=== PATIENT | female | born 1940 | race Caucasian/White ===

== ENCOUNTER → 2016-09-08 | Outpatient (CLI) | payer MEDICARE, BC ==
[~2016-09-08] MED LIST: Iopamidol 755 MG/ML 50 ML Bottle IV ONE
[2016-09-08 16:41] LABS: CHLORIDE,CL 106 mmol/L (98-110); SODIUM,NA 142 mmol/L (136-146)
--- NOTE | 2016-09-08 18:15 | CT ---
EXAM DATE: 09/08/16 PATIENT'S AGE: 75 Patient: TOÑA TOLEDO Facility: [place], [place] Site . Site : 1940 Study: CT Chest Angio [id number]/27/2017 5:27:31 PM Ordering Physician: Radha Goodrich Final Report: INDICATION: Chest pain and shortness of breath. Heart failure. TECHNIQUE: CT chest pulmonary PE protocol acquired with IV contrast. 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 No acute appearing pulmonary embolus seen. Upper limits of normal cardiac size. Ectasia of the ascending aorta measuring 3.7 centimeters. Mediastinum and paula: No mass or adenopathy. Fluid in the mid to distal esophagus. Apparent mild prominence of the distal esophageal wall. Lungs: Minor subsegmental atelectasis. Mild mosaic attenuation could represents compressive changes with foci of air trapping. A 2- 3 millimeter left lower lobe nodule on image 383, possibly calcified. Pleura and pericardium: No effusions. Chest wall and axilla: No mass or adenopathy. Heterogeneous hypodense thyroid containing ill-defined low-attenuation foci. Upper abdomen: A superior right hepatic calcification, probably a granuloma. A small splenic capsular calcification. A 7 millimeter soft tissue density lateral to the spleen on image 512 could represent a splenule. A thickened, nodular left adrenal. Postsurgical changes in the proximal stomach. Bones: Degenerative changes in both shoulders with loose intra-articular bodies. IMPRESSION: 1. No CT evidence of an acute pulmonary embolus. A small intraluminal band in the left lower lobe segmental pulmonary artery is suggestive of sequela of a small chronic PE. 2. A small left lower lobe pulmonary nodule may be calcified. If there are risk factors, a 12 month followup examination could be obtained. 3. Inhomogeneous thyroid containing ill-defined low-density foci. Correlate with nonemergent sonography. 4. Other findings as above. Dictated by Tom Ramos MD @ 09/08/2016 6:06:17 PM Dictated by: Tom Ramos MD @ 09/08/2016 18:06:23 (Electronic Signature) Report Signed by Proxy and Original Signed Document filed in the Medical Record. MTDD
--- NOTE | 2016-09-08 18:16 | CR ---
EXAM DATE: 09/08/16 PATIENT'S AGE: 75 Patient: TOÑA TOLEDO Facility: [place], [place] Site . Site : 1940 Study: XRay Chest [id number]/27/2017 5:33:59 PM Ordering Physician: Radha Goodrich Final Report: INDICATION: Chest pain TECHNIQUE: Chest 2 views. COMPARISON: 01/30/2016 FINDINGS: Cardiovascular and mediastinum: Normal cardiac size. An ectatic, tortuous and calcified aorta again seen. Lungs and pleural spaces: No consolidation or pleural effusions. Bones and soft tissues: No significant change. IMPRESSION: No sign of acute disease. Dictated by Tom Ramos MD @ 09/08/2016 5:37:43 PM Dictated by: Tom Ramos MD @ 09/08/2016 17:37:50 (Electronic Signature) Report Signed by Proxy and Original Signed Document filed in the Medical Record. MTDD
== END ==
LOC: MW.CHIM 15:45
PROVIDERS: ATTEND Internal Medicine
DX: R07.9 Chest pain, unspecified (principal); I50.9 Heart failure, unspecified; R53.1 Weakness
CPT/HCPCS: 36415; 71020; 71275; 80053; 81001; 83880; 84484; 85025; Q9967; G0463

== ENCOUNTER → 2016-09-09 | Outpatient (CLI) | payer MEDICARE, BC | LOC: MW.CHIM 08:00 | CPT/HCPCS: G0463 ==

== ENCOUNTER 2016-09-21 06:58 | Emergency (ER) | payer MEDICARE, BC ==
[2016-09-21 07:07] VITALS: BP 135/65
--- NOTE | 2016-09-21 07:09 | EDM.PDOC ---
ED HPI LOWER BACK PAIN/INJURY - General Chief Complaint: Back Pain or Injury Stated Complaint: BACK PAIN Time Seen by Provider: 09/21/16 07:03 Source of Information: Reports: Patient History Limitations: Reports: No limitations - History of Present Illness INITIAL COMMENTS - FREE TEXT/NARRATIVE: History of present illness: [] Review of systems: As per history of present illness and below otherwise all systems reviewed and negative. Past medical history: As per history of present illness and as reviewed below otherwise noncontributory. Surgical history: As per history of present illness and as reviewed below otherwise noncontributory. Social history: No reported history of drug or alcohol abuse. Family history: As per history of present illness and as reviewed below otherwise noncontributory. Physical exam: General: Well developed, well nourished in NAD HEENT: Atraumatic, normocephalic, pupils reactive, negative for conjunctival pallor or scleral icterus, mucous membranes moist, throat clear, neck supple, nontender, trachea midline. Lungs: Clear to auscultation, breath sounds equal bilaterally, chest nontender. Heart: S1S2, regular, negative for clicks, rubs, or JVD. Abdomen: Soft, nondistended, nontender. Negative for masses or hepatosplenomegaly. Negative for costovertebral tenderness. Pelvis: Stable nontender. Genitourinary: Deferred. Rectal: Deferred. Back: Tenderness over the right hip and lower spine to palpation Extremities: Atraumatic, negative for cords or calf pain. Neurovascular unremarkable. Neuro: Awake, alert, oriented. Cranial nerves II through XII unremarkable. Cerebellum unremarkable. Motor and sensory unremarkable throughout. Exam nonfocal. Diagnostics: [] UA and lumbar spine films are negative Therapeutics: [] Tramadol Flexeril Motrin given in ED. Impression: [] Low back pain with spasm Plan: [] Tramadol Flexeril for pain followup PMD return if symptoms worsen Definitive disposition and diagnosis as appropriate pending reevaluation and review of above. - Related Data Allergies/ADRs: Allergies Allergy/AdvReac Type Severity Reaction Status Date / Time No Known Allergies Allergy Verified 09/21/16 06:59 Home Meds: Home Meds Aspirin 1 tab PO ASDIRECTED 09/21/16 [History] Calcium Carbonate [Calcium] 1 tab PO BID 09/21/16 [History] Carvedilol 1 tab PO BID 09/21/16 [History] Cyanocobalamin (Vitamin B-12) [Cyanocobalamin] 09/21/16 [History] Cyclobenzaprine [Flexeril] 10 mg PO BID PRN #16 tablet 09/21/16 [Rx] Enalapril [Vasotec] 1 tab PO BID 09/21/16 [History] Furosemide 1 tab PO BID 09/21/16 [History] Potassium Chloride 1 tab PO BID 09/21/16 [History] traMADol [Ultram] 50 mg PO Q8H PRN #16 tablet 09/21/16 [Rx] Past Medical History HEENT History: Reports: Cataract Cardiovascular History: Reports: Blood clots/VTE/DVT, Heart Failure Respiratory History: Reports: PE Genitourinary History: Reports: 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 Psychiatric History: Reports: None Endocrine/Metabolic History: Reports: Hypothyroidism - Past Surgical History HEENT Surgical History: Reports: Cataract surgery GI Surgical History: Reports: Appendectomy, Cholecystectomy Musculoskeletal Surgical History: Reports: Hip replacement, Knee replacement Social & Family History - Tobacco Use Smoking Status *Q: Never Smoker Second Hand Smoke Exposure: No ED ROS GENERAL - Review of Systems Review Of Systems: See Below (See history of present illness) ED EXAM,LOWER BACK PAIN/INJURY - Physical Exam Exam: See Below (See history of present illness) Course - Vital Signs Last Recorded V/S: Last Vital Signs Temp 36.6 C 09/21/16 07:00 Pulse 71 09/21/16 07:00 Resp 16 09/21/16 07:00 BP 135/65 09/21/16 07:00 Pulse Ox 99 09/21/16 07:00 - Orders/Labs/Meds Orders: Active Orders 24 hr Category Date Time Status Lumbar Spine 2 or 3V [CR] Stat Exams 09/21/16 07:08 Ordered Labs: Laboratory Tests 09/21/16 Range/Units 07:20 Urine Color YELLOW Urine Appearance CLEAR Urine pH 6.0 (5.0-8.0) Ur Specific [place] 1.015 (1.001-1.035) Urine Protein NEGATIVE (NEGATIVE) mg/dL Urine Glucose (UA) NEGATIVE (NEGATIVE) mg/dL Urine Ketones NEGATIVE (NEGATIVE) mg/dL Urine Occult Blood NEGATIVE (NEGATIVE) Urine Nitrite NEGATIVE (NEGATIVE) Urine Bilirubin NEGATIVE (NEGATIVE) Urine Urobilinogen 0.2 (<2.0) EU/dL Ur Leukocyte Esterase NEGATIVE (NEGATIVE) Urine RBC 0-1 (0-2/HPF) Urine WBC 0-1 (0-5/HPF) Ur Epithelial Cells FEW (NONE-FEW) Urine Bacteria RARE (NEGATIVE) Meds: Medications Discontinued Medications Generic Name Dose Route Start Last Admin Trade Name Freq PRN Reason Stop Dose Admin Cyclobenzaprine HCl 10 mg 09/21/16 07:27 09/21/16 07:32 Flexeril PO 09/21/16 07:28 10 mg ONETIME ONE Administration Ibuprofen 600 mg 09/21/16 07:26 09/21/16 07:32 Motrin PO 09/21/16 07:27 600 mg ONETIME ONE Administration Tramadol HCl 50 mg 09/21/16 08:03 Ultram PO 09/21/16 08:04 ONETIME ONE Departure - Departure Time of Disposition: 08:04 Disposition: Home, Self-Care 01 Condition: good Clinical Impression: Low back pain Qualifiers: Chronicity: acute Back pain laterality: right Sciatica presence: without sciatica Qualified Code(s): M54.5 - Low back pain Prescriptions: traMADol [Ultram] 50 mg PO Q8H PRN #16 tablet PRN Reason: Pain Forms: ED Department Discharge Additional Instructions: The following information is given to patients seen in the emergency department who are being discharged to home. This information is to outline your options for follow-up care. We provide all patients seen in our emergency department with a follow-up referral. The need for follow-up, as well as the timing and circumstances, are variable depending upon the specifics of your emergency department visit. If you don't have a primary care physician on staff, we will provide you with a referral. We always advise you to contact your personal physician following an emergency department visit to inform them of the circumstance of the visit and for follow-up with them and/or the need for any referrals to a consulting specialist. The emergency department will also refer you to a specialist when appropriate. This referral assures that you have the opportunity for follow-up care with a specialist. All of these measure are taken in an effort to provide you with optimal care, which includes your follow-up. Under all circumstances we always encourage you to contact your private physician who remains a resource for coordinating your care. When calling for follow-up care, please make the office aware that this follow-up from your recent emergency room visit. If for any reason you are refused follow -up, please contact the [facility] Emergency Department at and asked to speak to the emergency department charge nurse. Tramadol for pain Flexiril for spasm - My Orders Last 24 Hours: My Active Orders 09/21/16 07:08 Lumbar Spine 2 or 3V [CR] Stat - Assessment/Plan Last 24 Hours: My Active Orders 09/21/16 07:08 Lumbar Spine 2 or 3V [CR] Stat
[2016-09-21] MEDS ORDERED: Ibuprofen 600 MG Tab PO ONE (07:26)
[2016-09-21] MEDS ORDERED: Cyclobenzaprine 10 MG Tab PO ONE (07:27)
[2016-09-21] MEDS ORDERED: traMADol 50 MG Tab PO ONE (08:03)
--- NOTE | 2016-09-22 21:16 | CR ---
EXAM DATE: 09/21/16 PATIENT'S AGE: 75 Patient: TOÑA TOLEDO Facility: [place], [place] Site . Site : 1940 Study: XRay Spine Lumbar [id number]/12/2017 7:42:43 AM Ordering Physician: Murphy Garrett Final Report: Indication: Low back pain. Technique: Three upright views of the lumbar spine. Comparison: None. Findings: No fracture or bone destruction. Advanced L5-S1 degenerative changes and degenerative grade 2 L5 anterolisthesis. Moderate L1-2 and L2-3 degenerative changes and 3 mm L1 and L2 retrolistheses. Mild L3-4 disc degeneration. At least moderate facet degenerative changes generally. Mild levoscoliosis. Sacroiliac joints grossly negative. Impression: 1. No acute abnormality. 2. Degenerative changes, as above, including a degenerative grade 2 L5 anterolisthesis and 3 mm L1 and L2 retrolistheses. 3. Mild scoliosis. Dictated by Delroy Gomez MD @ Sep 21 2016 7:55AM (Electronic Signature) Report Signed by Proxy and Original Signed Document filed in the Medical Record. [facility] INSANEShobha
== END 2016-09-21 08:44 | disposition home or self-care (01) ==
LOC: MW.ED 06:58
DX: M62.830 Muscle spasm of back (principal); M54.5 Low back pain; E03.9 Hypothyroidism, unspecified; Z79.82 Long term (current) use of aspirin; Z79.899 Other long term (current) drug therapy; Z98.49 Cataract extraction status, unspecified eye; Z90.49 Acquired absence of other specified parts of digestive tract
CPT/HCPCS: 72100; 81001; 99283; A9270

== ENCOUNTER 2016-09-24 10:04 | Emergency (ER) | payer MEDICARE, BC ==
[2016-09-24] MEDS ORDERED: Ketorolac 60 MG/2 ML SDV IM ONE (10:27)
--- NOTE | 2016-09-24 10:32 | EDM.PDOC ---
ED HPI LOWER BACK PAIN/INJURY - General Chief Complaint: Back Pain or Injury Stated Complaint: RT HIP HURTS Time Seen by Provider: 09/24/16 10:27 Source of Information: Reports: Patient History Limitations: Reports: No limitations - History of Present Illness INITIAL COMMENTS - FREE TEXT/NARRATIVE: HISTORY AND PHYSICAL: [75-year-old female presenting with back pain that has increased in intensity also extending to her right hip] History of Present Illness: [Patient was seen on 06/28 and treated for muscle] Review of Systems: As per history of present illness and below otherwise all systems reviewed and negative. Past medical history: As per history of present illness and as reviewed below otherwise noncontributory. Surgical history: As per history of present illness and as reviewed below otherwise noncontributory. Social history: No reported history of drug or alcohol abuse. Family history: As per history of present illness and as reviewed below otherwise noncontributory. Physical exam: Alert oriented female complaining that the pills make her "pass out" then she wakes up 2 hours later with the same pain HEENT: Atraumatic, normocehpalic, pupils reactive, negative for conjunctival pallor or scleral icterus, mucous membranes moist, throat clear, neck supple, nontender, trachea midline. Lungs: Clear to auscultation, breath sounds equal bilaterally, chest non tender. Heart: S1S2, regular, negative for clicks, rubs, or JVD. Abdomen: Soft, nondistended, nontender. Negative for masses or hepatossplenmegaly. Negative for costovertebral tenderness. Pelvis: Stable mildly tender to rt posterior hip. Passive ROM has tenderness with external rotation and internal rotation. Pain is noted with extreme flexion but not extension. Genitourinary: Deferred. Rectal: Deferred Extremities: Atraumatic, negative for cords or calf pain. Neurovascular unremarkable. Neuro: Awake, alert, oriented. Cranial nerves II through XII unremarkable. Cerebellum unremarkable. Motor and sensory unremarkable throughout. Exam nonfocal. Review the previous films that were taken there is no data of osteoporosis degeneration at the L5-S1. This is consistent with the pain that she has been having also some scoliosis present. 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 Timing/Duration: Reports: Day(s): Location: Reports: lower, generalized Quality: Reports: Ache, Same as previous episode Severity: moderate Place of Occurrence: home Improves with: Reports: None Worsens with: Reports: Movement Context: Reports: chronic pain/injury - Related Data Allergies/ADRs: Allergies Allergy/AdvReac Type Severity Reaction Status Date / Time No Known Allergies Allergy Verified 09/24/16 10:13 Home Meds: Home Meds Aspirin 1 tab PO ASDIRECTED 09/21/16 [History] Calcium Carbonate [Calcium] 1 tab PO BID 09/21/16 [History] Carvedilol 1 tab PO BID 09/21/16 [History] Cyanocobalamin (Vitamin B-12) [Cyanocobalamin] 1 mcg IM ASDIRECTED 09/21/16 [ History] Cyclobenzaprine [Flexeril] 10 mg PO BID PRN #16 tablet 09/21/16 [Rx] Enalapril [Vasotec] 1 tab PO BID 09/21/16 [History] Furosemide 2 tab PO BID 09/21/16 [History] Potassium Chloride 1 tab PO BID 09/21/16 [History] Calcitonin ([place]) [Miacalcin Nasal [place]] 1 ml FERNANDO DAILY #1 bottle 09/24/16 [ Rx] Diclofenac Sodium [IJD: Diclofenac Sodium] 75 mg PO .TWICE DAILY W MEALS #20 tab.ec 09/24/16 [Rx] Prednisone [IJD: predniSONE] 20 mg PO WITHBREAKFAST #5 tab 09/24/16 [Rx] Past Medical History HEENT History: Reports: Cataract Cardiovascular History: Reports: Blood clots/VTE/DVT, Heart Failure Respiratory History: Reports: PE Genitourinary History: Reports: 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 ED EXAM,LOWER BACK PAIN/INJURY - Physical Exam Exam: See Below (see dictation) Course - Vital Signs Last Recorded V/S: Last Vital Signs Temp 36.1 C 09/24/16 10:19 Pulse 112 H 09/24/16 10:19 Resp 20 09/24/16 10:19 BP 99/55 L 09/24/16 10:19 Pulse Ox 98 09/24/16 10:19 Departure - Departure Time of Disposition: 11:00 Disposition: Home, Self-Care 01 Condition: good Clinical Impression: Low back pain Qualifiers: Chronicity: acute Back pain laterality: right Sciatica presence: without sciatica Qualified Code(s): M54.5 - Low back pain Prescriptions: Calcitonin ([place]) [Miacalcin Nasal [place]] 1 ml FERNANDO DAILY #1 bottle Diclofenac Sodium [IJD: Diclofenac Sodium] 75 mg PO .TWICE DAILY W MEALS #20 tab.ec Prednisone [IJD: predniSONE] 20 mg PO WITHBREAKFAST #5 tab Instructions: Back Pain, Adult, [id number] Forms: ED Department Discharge
[2016-09-24 11:28] VITALS: BP 100/58
== END 2016-09-24 11:22 | disposition home or self-care (01) ==
LOC: MW.ED 10:04
DX: M54.5 Low back pain (principal); M25.551 Pain in right hip; E03.9 Hypothyroidism, unspecified; Z79.899 Other long term (current) drug therapy; Z98.49 Cataract extraction status, unspecified eye; Z86.718 Personal history of other venous thrombosis and embolism; Z90.49 Acquired absence of other specified parts of digestive tract; Z98.890 Other specified postprocedural states; Z90.89 Acquired absence of other organs
CPT/HCPCS: 96372; 99283; J1885

== ENCOUNTER 2016-09-26 10:49 | Inpatient (IN) | payer MEDICARE, BC ==
[2016-09-26] MEDS ORDERED: Sodium Chloride 0.9% 1,000 ML IV ONE (10:59)
[2016-09-26] MEDS ORDERED: Ketorolac 30 MG/ML SDV IVPUSH ONE (10:59)
--- NOTE | 2016-09-26 11:04 | EDM.PDOC ---
[id number] Time Seen by Provider: 09/26/16 11:01 Source: Reports: Patient History Limitations: Reports: No limitations - History of Present Illness INITIAL COMMENTS - FREE TEXT/NARRATIVE: HISTORY AND PHYSICAL: [75-year-old female presenting by EMS to 2 hypotension and back pain] History of Present Illness: [Recipient was seen in the emergency room 2 days ago with back and hip pain no fractures have been noted at that time Patient states her right leg was swelling after OT had gotten her up to walk] Review of Systems: As per history of present illness and below otherwise all systems reviewed and negative. Past medical history: As per history of present illness and as reviewed below otherwise noncontributory. Surgical history: As per history of present illness and as reviewed below otherwise noncontributory. Social history: No reported history of drug or alcohol abuse. Family history: As per history of present illness and as reviewed below otherwise noncontributory. Physical exam: Alert white female who is "very tired of being in pain" apologizes for not wanting to misuse the ER. HEENT: Atraumatic, normocehpalic, pupils reactive, negative for conjunctival pallor or scleral icterus, mucous membranes are slightly dry, throat clear, neck supple, nontender, trachea midline. Significant circles under her eyes. Lungs: Clear to auscultation, breath sounds equal bilaterally, chest non tender. Heart: S1S2, regular, negative for clicks, rubs, or JVD. Abdomen: Soft, nondistended, nontender. Negative for masses or hepatossplenmegaly. Negative for costovertebral tenderness. Pelvis: Stable nontender. Tenderness is noted over the right sciatic causing some slight radiation to thebuttocks Genitourinary: Deferred. Rectal: Deferred Extremities: Atraumatic, negative for cords or calf pain. Neurovascular unremarkable. Neuro: Awake, alert, oriented. Cranial nerves II through XII unremarkable. Cerebellum unremarkable. Motor and sensory unremarkable throughout. Exam nonfocal. Patient has reported that she has not eaten this morning before she took her diclofenac. Diagnostics: [CBC CMP EKG chest x-ray] Therapeutics: [IV fluid, toradal] Impression: [#1 sciatica #2 mild dehydration #3] chronic back pain Plan: [25 mg fentanyl patch every 72 hours for your chronic pain] Definitive disposition and diagnosis as appropriate pending reevaluation and review of above. Occurred When: last week Occurred Where: home Severity: moderate Pain/Injury Location: Reports: lower extremity, right, other (generalized) Consciousness: Reports: no loss of consciousness Associated Symptoms: Reports: no other symptoms Allergies/ADRs: Allergies No Known Allergies Allergy (Verified 09/26/16 11:01) Home Medications: Ambulatory Orders Aspirin 1 tab PO ASDIRECTED 09/21/16 [Confirmed 09/24/16] Calcium Carbonate [Calcium] 1 tab PO BID 09/21/16 [Confirmed 09/24/16] Potassium Chloride 20 meq PO BID 09/21/16 [Confirmed 09/29/16] Calcitonin ([place]) [Miacalcin Nasal [place]] 1 spray FERNANDO Q2D 09/26/16 [Confirmed 09/29/16] Cyanocobalamin (Vitamin B-12) [Cyanocobalamin Injection] 1,000 mcg IM ASDIRECTED 09/26/16 [Confirmed 09/26/16] Enalapril [Vasotec] 2.5 mg PO BID 09/26/16 [Confirmed 09/26/16] Levothyroxine [Synthroid] 100 mcg PO DAILY 09/26/16 [Confirmed 09/26/16] Primidone 75 mg PO BEDTIME 09/26/16 [Confirmed 09/26/16] Furosemide 40 mg PO BID 09/29/16 [Confirmed 09/29/16] Carvedilol [Coreg] 3.125 mg PO BID #28 tablet 10/01/16 Rivaroxaban [Xarelto] 15 mg PO BID #32 tablet 10/01/16 Past Medical History HEENT History: Reports: Cataract Cardiovascular History: Reports: Blood clots/VTE/DVT, Heart Failure Respiratory History: Reports: PE Genitourinary History: Reports: None [employer] History: Reports: None Psychiatric History: Reports: None Endocrine/Metabolic History: Reports: Hypothyroidism - Past Surgical History HEENT Surgical History: Reports: Cataract surgery GI Surgical History: Reports: Appendectomy, Cholecystectomy Musculoskeletal Surgical History: Reports: Hip replacement, Knee replacement Social & Family History - Family History Family Medical History: Noncontributory - Tobacco Use Smoking Status *Q: Never Smoker Second Hand Smoke Exposure: No - Recreational Drug Use Recreational Drug Use: No Review of Systems - Review of Systems Review Of Systems: ROS reveals no pertinent complaints other than HPI. Trauma Exam - Physical Exam Exam: See Below (see dictation) EKG INTERPRETATION EKG Date: 09/26/16 Time: 11:10 Rhythm: NSR [place]: normal P-wave: present QRS: normal ST-T: normal QT: normal Course - Vital Signs Last Recorded V/S: Last Vital Signs Temp 36.2 C 10/01/16 08:00 Pulse 100 10/01/16 08:55 Resp 16 10/01/16 08:00 BP 131/68 10/01/16 08:55 Pulse Ox 95 10/01/16 08:00 - Orders/Labs/Meds Labs: Laboratory Tests 09/26/16 09/26/16 09/26/16 Range/Units 13:49 13:49 13:49 WBC 13.05 H (4.0-11.0) K/uL RBC 3.66 L (4.30-5.90) M/uL Hgb 11.0 L (12.0-16.0) g/dL Hct 35.2 L (36.0-46.0) % MCV 96.2 (80.0-98.0) fL MCH 30.1 (27.0-32.0) pg MCHC 31.3 (31.0-37.0) g/dL RDW Std Deviation 55.7 (28.0-62.0) fl RDW Coeff of Sebastien 16 H (11.0-15.0) % Plt Count 165 (150-400) K/uL MPV 10.10 (7.40-12.00) fL Neut % (Auto) 88.8 H (48.0-80.0) % Lymph % (Auto) 6.2 L (16.0-40.0) % [place] % (Auto) 4.6 (0.0-15.0) % Eos % (Auto) 0.2 (0.0-7.0) % Baso % (Auto) 0.2 (0.0-1.5) % Neut # 11.6 H (1.4-5.7) K/uL Lymph # 0.8 (0.6-2.4) K/uL [place] # 0.6 (0.0-0.8) K/uL Eos # 0.0 (0.0-0.7) K/uL Baso # 0.0 (0.0-0.1) K/uL Nucleated RBC % 0.0 /100WBC Nucleated RBCs # 0 K/uL INR 1.00 (0.86-1.11) Lactate 1.2 (0.20-2.00) mmol/L Troponin I (0.0-0.29) NG/ML 09/26/16 Range/Units 13:49 WBC (4.0-11.0) K/uL RBC (4.30-5.90) M/uL Hgb (12.0-16.0) g/dL Hct (36.0-46.0) % MCV (80.0-98.0) fL MCH (27.0-32.0) pg MCHC (31.0-37.0) g/dL RDW Std Deviation (28.0-62.0) fl RDW Coeff of Sebastien (11.0-15.0) % Plt Count (150-400) K/uL MPV (7.40-12.00) fL Neut % (Auto) (48.0-80.0) % Lymph % (Auto) (16.0-40.0) % [place] % (Auto) (0.0-15.0) % Eos % (Auto) (0.0-7.0) % Baso % (Auto) (0.0-1.5) % Neut # (1.4-5.7) K/uL Lymph # (0.6-2.4) K/uL [place] # (0.0-0.8) K/uL Eos # (0.0-0.7) K/uL Baso # (0.0-0.1) K/uL Nucleated RBC % /100WBC Nucleated RBCs # K/uL INR (0.86-1.11) Lactate (0.20-2.00) mmol/L Troponin I < 0.10 (0.0-0.29) NG/ML Meds: Medications Discontinued Medications Generic Name Dose Route Start Last Admin Trade Name Freq PRN Reason Stop Dose Admin Acetaminophen 650 mg 09/26/16 14:50 10/01/16 01:11 Tylenol PO 650 mg Q4H PRN Administration Pain (Mild 1-3)/fever Albuterol 2.5 mg 09/26/16 17:35 09/26/16 17:50 Proventil Neb Soln NEB 09/26/16 17:36 2.5 mg ONETIME ONE Administration Aspirin 81 mg 09/30/16 07:30 09/30/16 07:53 Aspirin PO 81 mg TuThSa JAZMIN Administration Calcium Carbonate/Glycine 1,000 mg 09/29/16 07:21 09/29/16 07:43 Tums PO 09/29/16 07:22 1,000 mg DAILY ONE Administration Calcium Carbonate/Glycine 1,000 mg 09/30/16 07:22 09/30/16 07:49 Tums PO 09/30/16 07:23 1,000 mg ONETIME ONE Administration Calcium Carbonate/Glycine 500 - 1,000 mg 09/30/16 20:45 09/30/16 20:53 Tums PO 1,000 mg Q8H PRN Administration Indigestion Calcium Carbonate/Glycine 1,000 mg 10/01/16 11:06 10/01/16 12:19 Tums PO 10/01/16 11:07 1,000 mg ONETIME ONE Administration Calcium Gluconate 1 gm 09/26/16 18:19 09/26/16 18:35 Calcium Gluconate IVPUSH 09/26/16 18:20 1 gm ONETIME ONE Administration Calcium Gluconate 1 gm 09/26/16 20:23 09/26/16 20:47 Calcium Gluconate IVPUSH 09/26/16 20:24 1 gm ONETIME ONE Administration Calcium Gluconate Confirm 09/26/16 20:40 09/26/16 20:51 Calcium Gluconate Administered 09/26/16 20:41 1 gm Dose Administration 1 gm .ROUTE .STK-MED ONE Calcium Gluconate 1 gm 09/26/16 23:28 09/27/16 00:01 Calcium Gluconate IVPUSH 09/26/16 23:29 1 gm ONETIME ONE Administration Carvedilol 6.25 mg 09/28/16 11:00 09/28/16 20:40 Coreg PO 6.25 mg BID JAZMIN Administration Carvedilol 3.125 mg 09/29/16 09:00 10/01/16 08:55 Coreg PO 3.125 mg BID JAZMIN Administration Dextrose/Water 50 ml 09/26/16 18:26 09/26/16 18:49 Dextrose 50% In Water IVPUSH 09/26/16 18:27 50 ml ONETIME ONE Administration Diltiazem HCl 10 mg 09/28/16 10:42 09/28/16 11:04 Diltiazem IVPUSH 09/28/16 10:43 10 mg ONETIME ONE Administration Enoxaparin Sodium 90 mg 09/26/16 17:30 09/26/16 17:44 Lovenox SUBCUT 90 mg Q24H JAZMIN Administration Fentanyl 25 mcg 09/26/16 12:23 09/26/16 12:34 Sublimaze IVPUSH 09/26/16 12:24 25 mcg ONETIME ONE Administration Fentanyl 25 mcg 09/26/16 13:45 09/26/16 13:53 Duragesic TRDERM 25 mcg Q72H JAZMIN Administration Furosemide 40 mg 09/26/16 17:20 09/30/16 07:33 Lasix IVPUSH 09/26/16 17:21 Not Given NOW ONE Furosemide 40 mg 09/29/16 09:00 Lasix IVPUSH 09/29/16 09:01 NOW ONE Furosemide 40 mg 09/29/16 10:15 09/30/16 20:15 Lasix PO 40 mg BID JAZMIN Administration Furosemide 40 mg 10/01/16 08:00 10/01/16 08:55 Lasix PO 40 mg BIDDIURETIC JAZMIN Administration Hydromorphone HCl 0.5 mg 09/26/16 12:22 09/26/16 12:31 Dilaudid IM 09/26/16 12:23 Not Given ONETIME ONE Sodium Chloride 1,000 mls @ 999 mls/hr 09/26/16 10:59 09/26/16 11:16 Normal Saline IV 09/26/16 11:59 999 mls/hr STAT ONE Administration Sodium Chloride 250 mls @ 999 mls/hr 09/26/16 17:30 09/26/16 17:42 Normal Saline IV 999 mls/hr ASDIRECTED JAZMIN Administration Sodium Chloride 250 mls @ 999 mls/hr 09/26/16 19:30 09/26/16 20:50 Normal Saline IV 09/26/16 19:46 999 mls/hr ASDIRECTED JAZMIN Administration Heparin Sodium/Dextrose 25,000 units in 500 mls @ 32.688 mls/hr 09/27/16 03: 30 Heparin 25,000 Units In D5w 500 Ml IV TITRATE JAZMIN Protocol 18 UNITS/KG/HR Heparin Sodium/Dextrose 25,000 units in 500 mls @ 32.688 mls/hr 09/27/16 17: 30 Heparin 25,000 Units In D5w 500 Ml IV TITRATE JAZMIN Protocol 18 UNITS/KG/HR Sodium Chloride 250 mls @ 999 mls/hr 09/26/16 21:15 09/26/16 21:16 Normal Saline IV Infused ASDIRECTED JAZMIN Infusion Heparin Sodium/Dextrose Confirm 09/26/16 21:23 09/26/16 22:41 Heparin 25,000 Units In D5w 500 Ml Administered 09/26/16 21:24 Not Given Dose 25,000 units in 500 mls @ as directed .ROUTE .STK-MED ONE Sodium Chloride 1,000 mls @ 100 mls/hr 09/26/16 23:30 09/28/16 16:40 Normal Saline IV Infused ASDIRECTED JAZMIN Infusion Heparin Sodium/Dextrose 25,000 units in 500 mls @ 33.552 mls/hr 09/27/16 17: 30 09/28/16 08:15 Heparin 25,000 Units In D5w 500 Ml IV 15 units/kg/hr TITRATE JAZMIN 29.28 mls/hr Protocol Titration 18 UNITS/KG/HR Sodium Chloride 250 mls @ 999 mls/hr 09/27/16 18:05 09/27/16 18:25 Normal Saline IV 09/27/16 18:20 999 mls/hr .Bolus ONE Administration Diltiazem HCl 100 mg/ Sodium 100 mls @ 5 mls/hr 09/28/16 10:45 09/28/16 15:15 Chloride IV 0 mg/hr TITRATE JAZMIN 0 mls/hr Protocol Titration 5 MG/HR Heparin Sodium (Porcine) 25, 505 mls @ 35.26 mls/hr 09/28/16 10:56 09/30/16 09:37 000 units/ Dextrose/Water IV 13 units/kg/hr TITRATE JAZMIN 25.47 mls/hr Protocol Administration 18 UNITS/KG/HR Sodium Chloride 250 mls @ 500 mls/hr 09/28/16 23:15 09/28/16 22:58 Normal Saline IV 500 mls/hr ASDIRECTED JAZMIN Administration Heparin Sodium/Dextrose Confirm 10/01/16 06:11 10/01/16 06:39 Heparin 25,000 Units In D5w 500 Ml Administered 10/01/16 06:12 13 units Dose Administration 25,000 units in 500 mls @ as directed .ROUTE .STK-MED ONE Insulin Human Regular 20 unit 09/26/16 18:25 09/26/16 18:45 Novolin R IVPUSH 09/26/16 18:26 20 units ONETIME ONE Administration Protocol Ketorolac Tromethamine 30 mg 09/26/16 10:59 09/26/16 11:13 Toradol IVPUSH 09/26/16 11:00 30 mg ONETIME ONE Administration Levothyroxine Sodium 100 mcg 09/28/16 09:00 Synthroid PO DAILY JAZMIN Levothyroxine Sodium 100 mcg 09/28/16 07:30 10/01/16 06:46 Synthroid PO 100 mcg ACBREAKFAST JAZMIN Administration Morphine Sulfate 2 mg 09/26/16 14:50 09/27/16 02:20 Morphine IVPUSH 09/27/16 14:55 2 mg Q2H PRN Administration Pain (severe 7-10) Ondansetron HCl 4 mg 09/26/16 12:22 09/26/16 12:32 Zofran IVPUSH 09/26/16 12:23 4 mg ONETIME ONE Administration Ondansetron HCl 4 mg 09/26/16 14:50 09/29/16 06:09 Zofran Odt PO 4 mg Q4H PRN Administration nausea, able to take PO Ondansetron HCl 4 mg 09/28/16 23:14 09/28/16 23:20 Zofran IVPUSH 09/28/16 23:15 4 mg ONETIME ONE Administration Oxycodone HCl 5 mg 09/26/16 14:50 09/30/16 15:06 Oxycodone PO 5 mg Q4H PRN Administration Pain (moderate 4-6) Potassium Chloride 20 meq 09/30/16 09:00 10/01/16 08:55 Klor-Con M20 PO 20 meq BID JAZMIN Administration Promethazine HCl 25 mg 09/29/16 06:54 09/29/16 07:42 Phenergan PO 09/29/16 06:55 25 mg ONETIME ONE Administration Rivaroxaban 15 mg 10/01/16 12:02 10/01/16 12:19 Xarelto PO 10/01/16 12:03 15 mg NOW ONE Administration Simethicone 80 mg 09/30/16 11:49 10/01/16 02:37 Simethicone PO 80 mg Q4H PRN Administration other Sodium Bicarbonate 50 meq 09/26/16 23:29 09/27/16 00:04 Sodium Bicarbonate 8.4% IVPUSH 09/26/16 23:30 50 meq ONETIME ONE Administration Sodium Chloride 10 ml 09/26/16 13:40 Saline Flush FLUSH ASDIRECTED PRN Keep Vein Open Sodium Chloride 2.5 ml 09/26/16 13:40 Saline Flush FLUSH ASDIRECTED PRN Keep Vein Open Sodium Polystyrene Sulfonate 15 gm 09/26/16 18:30 09/27/16 19:22 Kayexalate PO 15 gm Q6H JAZMIN Administration Sodium Polystyrene Sulfonate 15 gm 09/26/16 23:29 09/26/16 23:54 Kayexalate PO 09/26/16 23:30 15 gm ONETIME ONE Administration Departure - Departure Time of Disposition: 13:56 Disposition: Admitted As Inpatient 64 Condition: fair Clinical Impression: Low back pain Qualifiers: Chronicity: acute Back pain laterality: right Sciatica presence: without sciatica Qualified Code(s): M54.5 - Low back pain
[2016-09-26] MEDS ORDERED: Ondansetron 4 MG/2 ML SDV IVPUSH ONE (12:22)
[2016-09-26] MEDS ORDERED: HYDROmorphone 1 MG/ML Syringe IM ONE (12:22)
[2016-09-26] MEDS ORDERED: fentaNYL 100 MCG/2 ML SDV IVPUSH ONE (12:23)
[2016-09-26] MEDS ORDERED: Sodium Chloride 0.9% 10 ML Syringe FLUSH PRN (13:40)
[2016-09-26] MEDS ORDERED: Sodium Chloride 0.9% 2.5 ML Syringe FLUSH PRN (13:40)
[2016-09-26] MEDS ORDERED: fentaNYL 25 MCG/HR Transdermal Patch TRDERM SCH (13:45)
--- NOTE | 2016-09-26 13:50 | US ---
ULTRASOUND EXAMINATION OF the right lower extremity WITH DOPPLER HISTORY: Pain FINDINGS: Examination of the right leg was performed from the groin to the calf region. There is a noncompress ible filling defect within the common femoral vein extending into the popliteal vein consistent with venous thrombus. The veins distal to this appear compressible demonstrating normal flow. IMPRESSION: Filling defect within the common femoral vein to the popliteal vein consistent with an acute DVT.
[2016-09-26] MEDS ORDERED: Morphine 10 MG/ML Syringe IVPUSH PRN (14:50)
--- NOTE | 2016-09-26 16:30 | PCM.HP ---
H&P History of Present Illness - General Date of Service: 09/26/16 Admit Problem/Dx: DVT Source of Information: Patient History Limitations: Reports: No limitations - History of Present Illness Initial Comments - Free Text/Narative: 75 yo female admitted 09/26/16 with DVT of right common femoral vein with pmh of CHF, and Htn Patient initially had pain on weekend before admission. She had felt right hip pain and states that it began hurting Thursday evening. She then was unable to walk and was taking by ambulance to ED where x-rays were preformed and she was diagnosed with osteoarthritis and given pain meds. The pain meds only helped some but she did return to the ED that next Thursday due to more severe pain again. As per patient she was evaluated again and given pain meds for severe osteoarthritis. On day of admission, she awoke to a swollen, "purple" upper leg and thus returned to ED where a DVT was found extending from femoral vein to popliteal vein. Secondary to her inability to walk or care for herself at home from the DVT patient was admitted for anticoagulation. Patient does report that she has had a previous clot in the same leg but lower in 2003 that also was associated with PE. Patient did not complain of shortness of breath but states that she did have some sinus congestion, and productive cough that had started the day before. She denied any fever, chills, nausea or vomiting, diarrhea, or other signs of systemic infection. She did have a white count 13, 000 in the ED with 90% Neuts. Will admit for DVT and work up leukocytosis. right hip and leg Pain Score (Numeric/FACES): 4 - Related Data Allergies/Adverse Reactions: Allergies Allergy/AdvReac Type Severity Reaction Status Date / Time No Known Allergies Allergy Verified 09/26/16 11:01 Home Medications: Home Meds Aspirin 1 tab PO ASDIRECTED 09/21/16 [History] Calcium Carbonate [Calcium] 1 tab PO BID 09/21/16 [History] Carvedilol 1 tab PO BID 09/21/16 [History] Cyanocobalamin (Vitamin B-12) [Cyanocobalamin] 1 mcg IM ASDIRECTED 09/21/16 [ History] Cyclobenzaprine [Flexeril] 10 mg PO BID PRN #16 tablet 09/21/16 [Rx] Enalapril [Vasotec] 1 tab PO BID 09/21/16 [History] Furosemide 2 tab PO BID 09/21/16 [History] Potassium Chloride 1 tab PO BID 09/21/16 [History] Calcitonin ([place]) [Miacalcin Nasal [place]] 1 ml FERNANDO DAILY #1 bottle 09/24/16 [ Rx] Diclofenac Sodium [IJD: Diclofenac Sodium] 75 mg PO .TWICE DAILY W MEALS #20 tab.ec 09/24/16 [Rx] Prednisone [IJD: predniSONE] 20 mg PO WITHBREAKFAST #5 tab 09/24/16 [Rx] Past Medical History HEENT History: Reports: Cataract Cardiovascular History: Reports: Blood clots/VTE/DVT, Heart Failure Respiratory History: Reports: PE Gastrointestinal History: Reports: None Genitourinary History: Reports: None [employer] History: Reports: None Neurological History: Reports: None Psychiatric History: Reports: None Endocrine/Metabolic History: Reports: Hypothyroidism Hematologic History: Reports: None Immunologic History: Reports: None Dermatologic History: Reports: None - Past Surgical History HEENT Surgical History: Reports: Cataract surgery Cardiovascular Surgical History: Reports: None Respiratory Surgical History: Reports: Thoracentesis GI Surgical History: Reports: Appendectomy, Cholecystectomy Female Surgical History: Reports: Hysterectomy Musculoskeletal Surgical History: Reports: Hip replacement, Knee replacement Social & Family History - Family History Family Medical History: Noncontributory - Tobacco Use Smoking Status *Q: Former Smoker Second Hand Smoke Exposure: No - Caffeine Use Caffeine Use: Reports: Coffee, Soda, Tea - Recreational Drug Use Recreational Drug Use: No H&P Review of Systems - Review of Systems: Review Of Systems: See Below General: Reports: fatigue. Denies: fever, chills, weakness HEENT: Reports: sinus congestion, sore throat. Denies: ear pain, headaches Pulmonary: Reports: Cough, Sputum. Denies: Shortness of Breath, Wheezing Cardiovascular: Denies: chest pain, palpitations, edema Gastrointestinal: Denies: Abdominal pain, Black stool, Bloody stool, Diarrhea, Nausea, Vomiting Genitourinary: Denies: dysuria Musculoskeletal: Reports: leg pain Skin: Reports: change in color. Denies: cyanosis Psychiatric: Denies: confusion Neurological: Denies: Confusion, Dizziness, Headache Hematologic/Lymphatic: Denies: anemia, easy bleeding, easy bruising Immunologic: Denies: anaphylaxis Exam - Exam Exam: See Below - Vital Signs Vital Signs: Last Vital Signs Temp 35.9 C 09/26/16 14:30 Pulse 77 09/26/16 14:30 Resp 18 09/26/16 14:30 BP 99/53 L 09/26/16 14:30 Pulse Ox 96 09/26/16 14:52 Weight: 90.8 kg - Exam Quality Assessment: DVT prophylaxis General: alert, oriented, cooperative HEENT: PERRLA, Hearing intact, Mucosa moist & pink, Nares patent, Normal nasal septum, Posterior pharynx clear, Conjunctiva clear, EOMI, EACs clear, TMs clear Neck: supple, trachea midline, 2 Lungs: Normal respiratory effort, Crackles Cardiovascular: regular rate, regular rhythm, normal S1, normal S2, systolic murmur Abdomen: normal bowel sounds, soft Back Exam: normal inspection, full range of motion, NT Extremities: other (Tenderness to right upper thigh extending into right hip with purplish discoloration to the skin). No: calf tenderness Peripheral Pulses: 2+: radial (L), radial (R), posterior tibial (L), posterior tibial (R), dorsalis pedis (L), dorsalis pedis (R) Skin: warm, dry, intact Neurological: cranial nerves intact Neuro Extensive - Mental Status: alert, oriented x3, normal mood/affect, normal cognition Neuro Extensive - Motor, Sensory, Reflexes: CN II-XII intact Psychiatric: alert, normal affect, normal mood - Patient Data Lab Results last 24 hrs: Laboratory Results - last 24 hr 09/26/16 Range/Units 14:41 Sodium 135 L (136-146) mmol/L Potassium 6.8 H (3.5-5.1) mmol/L Chloride 106 (98-110) mmol/L Carbon Dioxide 20 L (21-31) mmol/L BUN 46 H (6.0-23.0) mg/dL Creatinine 3.3 H (0.6-1.5) mg/dL Est Cr Clr Drug Dosing 14.46 mL/min Estimated GFR (MDRD) 13.6 ml/min Glucose 180 H (60-110) mg/dL Calcium 7.9 L (8.8-10.8) mg/dL Total Bilirubin 0.5 (0.1-1.5) mg/dL AST 31 (5-40) IU/L ALT 51 (8-54) IU/L Alkaline Phosphatase 123 (40-150) Total Protein 6.5 (6.0-8.0) g/dL Albumin 3.8 (3.4-4.8) g/dL Globulin 2.7 (2.0-3.5) g/dL Albumin/Globulin Ratio 1.4 (1.3-2.8) Result Diagrams: 09/26/16 13:49 09/26/16 14:41 *Q Meaningful Use (ADM) - VTE *Q VTE Criteria *Q: - Stroke *Q Stroke Criteria *Q: - AMI *Q AMI Criteria *Q: - Problem List (1) Right femoral vein DVT SNOMED Code(s): 085967069 ICD Code: I82.411 - ACUTE EMBOLISM AND THROMBOSIS OF RIGHT FEMORAL VEIN Status: Acute Priority: High Current Visit: Yes Qualifiers: Chronicity: acute Qualified Code(s): I82.411 - Acute embolism and thrombosis of right femoral vein (2) CHF (congestive heart failure) SNOMED Code(s): 64308854 ICD Code: I50.9 - HEART FAILURE, UNSPECIFIED Status: Chronic Priority: Medium Current Visit: Yes Qualifiers: Congestive heart failure type: systolic Congestive heart failure chronicity : unspecified congestive heart failure chronicity Qualified Code(s): I50.20 - Unspecified systolic (congestive) heart failure (3) HTN (hypertension) SNOMED Code(s): 70040602 ICD Code: I10 - ESSENTIAL (PRIMARY) HYPERTENSION Status: Chronic Priority : Medium Current Visit: Yes Qualifiers: Hypertension type: essential hypertension Qualified Code(s): I10 - Essential (primary) hypertension Problem List Initiated/Reviewed/Updated: Yes Orders Last 24hrs: Active Orders 24 hr Category Date Time Status Patient Status [ADT] Routine ADT 09/26/16 14:52 Active May Shower [RC] ASDIRECTED Care 09/26/16 14:50 Active Oxygen Therapy [RC] PRN Care 09/26/16 14:52 Active Up With Assistance [RC] ASDIRECTED Care 09/26/16 14:50 Active VTE/DVT Education [RC] PER UNIT ROUTINE Care 09/26/16 14:52 Active Vital Signs [RC] Q4H Care 09/26/16 14:52 Active PT Evaluation and Treatment [CONS] Routine Cons 09/26/16 14:50 Active Heart Healthy Diet [DIET] Diet 09/26/16 Dinner Active CXR [Chest 2V] [CR] Routine Exams 09/26/16 14:44 Ordered BASIC METABOLIC PANEL,BMP [CHEM] DAILY Lab 09/27/16 05:00 Ordered BASIC METABOLIC PANEL,BMP [CHEM] DAILY Lab 09/28/16 05:00 Ordered BASIC METABOLIC PANEL,BMP [CHEM] DAILY Lab 09/29/16 05:00 Ordered BASIC METABOLIC PANEL,BMP [CHEM] DAILY Lab 09/30/16 05:00 Ordered CBC WITH AUTO DIFF [HEME] DAILY Lab 09/27/16 05:00 Ordered CBC WITH AUTO DIFF [HEME] DAILY Lab 09/28/16 05:00 Ordered CBC WITH AUTO DIFF [HEME] DAILY Lab 09/29/16 05:00 Ordered CBC WITH AUTO DIFF [HEME] DAILY Lab 09/30/16 05:00 Ordered CULTURE SPUTUM + SMEAR [RM] Stat Lab 09/26/16 15:50 Received CULTURE URINE [RM] Stat Lab 09/26/16 14:50 Uncollected INR,PT,PROTHROMBIN TIME [COAG] DAILY Lab 09/27/16 05:00 Ordered INR,PT,PROTHROMBIN TIME [COAG] DAILY Lab 09/28/16 05:00 Ordered INR,PT,PROTHROMBIN TIME [COAG] DAILY Lab 09/29/16 05:00 Ordered INR,PT,PROTHROMBIN TIME [COAG] DAILY Lab 09/30/16 05:00 Ordered INR,PT,PROTHROMBIN TIME [COAG] DAILY Lab 10/01/16 05:00 Ordered UA W/MICROSCOPIC [URIN] Stat Lab 09/26/16 14:50 Uncollected Acetaminophen [Tylenol] Med 09/26/16 14:50 Active 650 mg PO Q4H PRN Enoxaparin [Lovenox] Med 09/26/16 21:00 Active 100 mg SUBCUT Q12HR Morphine Med 09/26/16 14:50 Active 2 mg IVPUSH Q2H PRN Ondansetron [Zofran ODT] Med 09/26/16 14:50 Active 4 mg PO Q4H PRN oxyCODONE Med 09/26/16 14:50 Active 5 mg PO Q4H PRN Resuscitation Status Routine Resus Stat 09/26/16 14:50 Ordered Medication Orders Acetaminophen (Tylenol) 650 mg PO Q4H PRN PRN Reason: Pain (Mild 1-3)/fever Enoxaparin Sodium (Lovenox) 100 mg SUBCUT Q12HR [facility] Fentanyl (Duragesic) 25 mcg TRDERM Q72H [facility] Last Admin: 09/26/16 13:53 Dose: 25 mcg Morphine Sulfate (Morphine) 2 mg IVPUSH Q2H PRN PRN Reason: Pain (severe 7-10) Stop: 09/27/16 14:55 Ondansetron HCl (Zofran Odt) 4 mg PO Q4H PRN PRN Reason: nausea, able to take PO Oxycodone HCl (Oxycodone) 5 mg PO Q4H PRN PRN Reason: Pain (moderate 4-6) Sodium Chloride (Saline Flush) 10 ml FLUSH ASDIRECTED PRN PRN Reason: Keep Vein Open Sodium Chloride (Saline Flush) 2.5 ml FLUSH ASDIRECTED PRN PRN Reason: Keep Vein Open Assessment/Plan Comment:: 75 yo male with DVT of right common femoral vein extending into popliteal vein and leukocytosis with pmh of CHF and Htn. DVT: Will start patient on Lovenox 1mg/kg BID secondary to pain and swelling with plan to switch to Xarelto before discharge. Leukocytosis: Some bibasilar rales and productive cough. Will get CXR and UA UC to investigate for source of infection. CHF/HTN: Will restart home meds and monitor closely. VTE: Will be anticoagulated with Lovenox for DVT. No SCD Dispo: pending 4 days. May need assistance at home (pt/ot order to see patient )
[2016-09-26] MEDS ORDERED: Furosemide 40 MG/4 ML VIAL IVPUSH ONE (17:20)
[2016-09-26] MEDS ORDERED: Sodium Chloride 0.9% 250 ML IV SCH ×2 (17:30→19:30)
[2016-09-26] MEDS ORDERED: Enoxaparin 100 MG/1 ML Syringe SUBCUT SCH ×2 (17:30→21:00)
[2016-09-26] MEDS ORDERED: Albuterol 0.083% 2.5 MG/3 ML Neb Soln NEB ONE (17:35)
[2016-09-26] MEDS ORDERED: Calcium Gluconate 10% 1 GM/10 ML SDV IVPUSH ONE ×3 (18:19→23:28)
[2016-09-26] MEDS ORDERED: Insulin Regular, Human 100 Units/ML 10 ML Vial IVPUSH ONE (18:25)
[2016-09-26] MEDS ORDERED: 50% Dextrose in Water 50 ML Syringe IVPUSH ONE (18:26)
[2016-09-26] MEDS: Sodium Polystyrene Sulfonate 15 GM/60 ML Susp 60 ML Bot PO SCH (19:28)
[2016-09-26] MEDS ORDERED: Calcium Gluconate 10% 1 GM/10 ML SDV ONE (20:40)
--- NOTE | 2016-09-26 20:42 | PCM.SN ---
- Free Text/Narrative Note: Was called of critical value of K 6.8, repeated bmp, repeated EKG, originally EKG reviewed and discussed that it may some have peaking T waves. Ordered 1 albuterol treatment, 1 gram calcium gluconate, 1 amp D50 with 20 units regular insulin initial sugar 180. Notified Dr. Shah who also was present. Transferred to ICU and started serial bmp as well as kayxelate.
[2016-09-26] MEDS: Sodium Chloride 0.9% 250 ML IV SCH (21:00)
[2016-09-26] MEDS ORDERED: Heparin Sodium/D5W 25,000 UNITS/500 ML BAG ONE (21:23)
[2016-09-26] MEDS ORDERED: Sodium Polystyrene Sulfonate 15 GM/60 ML Susp 60 ML Bot PO ONE (23:29)
[2016-09-26] MEDS ORDERED: Sodium Bicarbonate 8.4% 50 MEQ/50 ML Syringe IVPUSH ONE (23:29)
[2016-09-26] MEDS: Sodium Chloride 0.9% 1,000 ML IV SCH (23:55)
[2016-09-27] MEDS: oxyCODONE 5 MG Tab PO PRN ×3 (00:01→19:45)
[2016-09-27] MEDS: Sodium Polystyrene Sulfonate 15 GM/60 ML Susp 60 ML Bot PO SCH ×4 (00:05→19:22)
[2016-09-27] MEDS ORDERED: Heparin Sodium/D5W 25,000 UNITS/500 ML BAG IV SCH ×3 (03:30→17:30)
[2016-09-27 06:41] LABS: CHLORIDE,CL 104 mmol/L (98-110); SODIUM,NA 137 mmol/L (136-146)
[2016-09-27] MEDS: Ondansetron 4 MG Tab.DIS PO PRN ×2 (09:55→22:55)
[2016-09-27] MEDS: Sodium Chloride 0.9% 1,000 ML IV SCH ×2 (10:22→20:49)
--- NOTE | 2016-09-27 10:59 | PCM.PN ---
- Review of Systems Systems Review Comment:: reports right hip pain and headache - Patient Data Vitals - most recent: Last Vital Signs Temp 36.6 C 09/27/16 08:00 Pulse 105 H 09/27/16 07:00 Resp 15 09/27/16 10:00 BP 112/54 L 09/27/16 10:00 Pulse Ox 97 09/27/16 10:00 Weight - most recent: 93.2 kg I&O - last 24 hours: Intake & Output 09/26/16 09/27/16 09/27/16 22:59 06:59 14:59 Intake Total 500 1350 1000 Output Total 660 Balance 808 996 0814 Lab Results last 24 hrs: Laboratory Results - last 24 hr 09/26/16 09/26/16 09/26/16 Range/Units 14:41 17:40 18:50 WBC (4.0-11.0) K/uL RBC (4.30-5.90) M/uL Hgb (12.0-16.0) g/dL Hct (36.0-46.0) % MCV (80.0-98.0) fL MCH (27.0-32.0) pg MCHC (31.0-37.0) g/dL RDW Std Deviation (28.0-62.0) fl RDW Coeff of Sebastien (11.0-15.0) % Plt Count (150-400) K/uL MPV (7.40-12.00) fL Neut % (Auto) (48.0-80.0) % Lymph % (Auto) (16.0-40.0) % [place] % (Auto) (0.0-15.0) % Eos % (Auto) (0.0-7.0) % Baso % (Auto) (0.0-1.5) % Neut # (1.4-5.7) K/uL Lymph # (0.6-2.4) K/uL [place] # (0.0-0.8) K/uL Eos # (0.0-0.7) K/uL Baso # (0.0-0.1) K/uL Nucleated RBC % /100WBC Nucleated RBCs # K/uL INR (0.86-1.11) APTT (18.6-31.3) SEC Sodium 135 L 136 (136-146) mmol/L Potassium 6.8 H 7.1 H* (3.5-5.1) mmol/L Chloride 106 105 (98-110) mmol/L Carbon Dioxide 20 L 21 (21-31) mmol/L BUN 46 H 46 H (6.0-23.0) mg/dL Creatinine 3.3 H 3.2 H (0.6-1.5) mg/dL Est Cr Clr Drug Dosing 14.46 14.91 mL/min Estimated GFR (MDRD) 13.6 14.0 ml/min Glucose 180 H 151 H (60-110) mg/dL POC Glucose 306 H (60-110) mg/dL Calcium 7.9 L 8.1 L (8.8-10.8) mg/dL Total Bilirubin 0.5 (0.1-1.5) mg/dL AST 31 (5-40) IU/L ALT 51 (8-54) IU/L Alkaline Phosphatase 123 (40-150) Total Protein 6.5 (6.0-8.0) g/dL Albumin 3.8 (3.4-4.8) g/dL Globulin 2.7 (2.0-3.5) g/dL Albumin/Globulin Ratio 1.4 (1.3-2.8) Urine Color Urine Appearance Urine pH (5.0-8.0) Ur Specific [place] (1.001-1.035) Urine Protein (NEGATIVE) mg/dL Urine Glucose (UA) (NEGATIVE) mg/dL Urine Ketones (NEGATIVE) mg/dL Urine Occult Blood (NEGATIVE) Urine Nitrite (NEGATIVE) Urine Bilirubin (NEGATIVE) Urine Urobilinogen (<2.0) EU/dL Ur Leukocyte Esterase (NEGATIVE) Urine RBC (0-2/HPF) Urine WBC (0-5/HPF) Ur Epithelial Cells (NONE-FEW) Amorphous Sediment (NEGATIVE) Urine Bacteria (NEGATIVE) Hyaline Casts (0-2/LPF) Urine Mucus (NONE-MOD) Ur Random Creatinine mg/dL Ur Random Sodium mmol/L 09/26/16 09/26/16 09/26/16 Range/Units 19:01 19:17 19:39 WBC (4.0-11.0) K/uL RBC (4.30-5.90) M/uL Hgb (12.0-16.0) g/dL Hct (36.0-46.0) % MCV (80.0-98.0) fL MCH (27.0-32.0) pg MCHC (31.0-37.0) g/dL RDW Std Deviation (28.0-62.0) fl RDW Coeff of Sebastien (11.0-15.0) % Plt Count (150-400) K/uL MPV (7.40-12.00) fL Neut % (Auto) (48.0-80.0) % Lymph % (Auto) (16.0-40.0) % [place] % (Auto) (0.0-15.0) % Eos % (Auto) (0.0-7.0) % Baso % (Auto) (0.0-1.5) % Neut # (1.4-5.7) K/uL Lymph # (0.6-2.4) K/uL [place] # (0.0-0.8) K/uL Eos # (0.0-0.7) K/uL Baso # (0.0-0.1) K/uL Nucleated RBC % /100WBC Nucleated RBCs # K/uL INR (0.86-1.11) APTT (18.6-31.3) SEC Sodium 136 (136-146) mmol/L Potassium 6.3 H (3.5-5.1) mmol/L Chloride 107 (98-110) mmol/L Carbon Dioxide 19 L (21-31) mmol/L BUN 47 H (6.0-23.0) mg/dL Creatinine 3.1 H (0.6-1.5) mg/dL Est Cr Clr Drug Dosing 15.39 mL/min Estimated GFR (MDRD) 14.6 ml/min Glucose 188 H (60-110) mg/dL POC Glucose 256 H 260 H (60-110) mg/dL Calcium 8.2 L (8.8-10.8) mg/dL Total Bilirubin (0.1-1.5) mg/dL AST (5-40) IU/L ALT (8-54) IU/L Alkaline Phosphatase (40-150) Total Protein (6.0-8.0) g/dL Albumin (3.4-4.8) g/dL Globulin (2.0-3.5) g/dL Albumin/Globulin Ratio (1.3-2.8) Urine Color Urine Appearance Urine pH (5.0-8.0) Ur Specific [place] (1.001-1.035) Urine Protein (NEGATIVE) mg/dL Urine Glucose (UA) (NEGATIVE) mg/dL Urine Ketones (NEGATIVE) mg/dL Urine Occult Blood (NEGATIVE) Urine Nitrite (NEGATIVE) Urine Bilirubin (NEGATIVE) Urine Urobilinogen (<2.0) EU/dL Ur Leukocyte Esterase (NEGATIVE) Urine RBC (0-2/HPF) Urine WBC (0-5/HPF) Ur Epithelial Cells (NONE-FEW) Amorphous Sediment (NEGATIVE) Urine Bacteria (NEGATIVE) Hyaline Casts (0-2/LPF) Urine Mucus (NONE-MOD) Ur Random Creatinine mg/dL Ur Random Sodium mmol/L 09/26/16 09/26/16 09/26/16 Range/Units 20:37 20:37 20:37 WBC (4.0-11.0) K/uL RBC (4.30-5.90) M/uL Hgb (12.0-16.0) g/dL Hct (36.0-46.0) % MCV (80.0-98.0) fL MCH (27.0-32.0) pg MCHC (31.0-37.0) g/dL RDW Std Deviation (28.0-62.0) fl RDW Coeff of Sebastien (11.0-15.0) % Plt Count (150-400) K/uL MPV (7.40-12.00) fL Neut % (Auto) (48.0-80.0) % Lymph % (Auto) (16.0-40.0) % [place] % (Auto) (0.0-15.0) % Eos % (Auto) (0.0-7.0) % Baso % (Auto) (0.0-1.5) % Neut # (1.4-5.7) K/uL Lymph # (0.6-2.4) K/uL [place] # (0.0-0.8) K/uL Eos # (0.0-0.7) K/uL Baso # (0.0-0.1) K/uL Nucleated RBC % /100WBC Nucleated RBCs # K/uL INR (0.86-1.11) APTT (18.6-31.3) SEC Sodium (136-146) mmol/L Potassium (3.5-5.1) mmol/L Chloride (98-110) mmol/L Carbon Dioxide (21-31) mmol/L BUN (6.0-23.0) mg/dL Creatinine (0.6-1.5) mg/dL Est Cr Clr Drug Dosing mL/min Estimated GFR (MDRD) ml/min Glucose (60-110) mg/dL POC Glucose (60-110) mg/dL Calcium (8.8-10.8) mg/dL Total Bilirubin (0.1-1.5) mg/dL AST (5-40) IU/L ALT (8-54) IU/L Alkaline Phosphatase (40-150) Total Protein (6.0-8.0) g/dL Albumin (3.4-4.8) g/dL Globulin (2.0-3.5) g/dL Albumin/Globulin Ratio (1.3-2.8) Urine Color YELLOW Urine Appearance CLEAR Urine pH 5.5 (5.0-8.0) Ur Specific [place] 1.015 (1.001-1.035) Urine Protein NEGATIVE (NEGATIVE) mg/dL Urine Glucose (UA) 100 H (NEGATIVE) mg/dL Urine Ketones NEGATIVE (NEGATIVE) mg/dL Urine Occult Blood NEGATIVE (NEGATIVE) Urine Nitrite NEGATIVE (NEGATIVE) Urine Bilirubin NEGATIVE (NEGATIVE) Urine Urobilinogen 0.2 (<2.0) EU/dL Ur Leukocyte Esterase NEGATIVE (NEGATIVE) Urine RBC 0-1 (0-2/HPF) Urine WBC 0-2 (0-5/HPF) Ur Epithelial Cells OCCASIONAL (NONE-FEW) Amorphous Sediment MODERATE (NEGATIVE) Urine Bacteria RARE (NEGATIVE) Hyaline Casts 0-3 (0-2/LPF) Urine Mucus LIGHT (NONE-MOD) Ur Random Creatinine 62.9 mg/dL Ur Random Sodium 54.0 mmol/L 09/26/16 09/26/16 09/27/16 Range/Units 21:14 21:14 05:10 WBC 13.31 H (4.0-11.0) K/uL RBC 3.58 L (4.30-5.90) M/uL Hgb 10.9 L (12.0-16.0) g/dL Hct 34.3 L (36.0-46.0) % MCV 95.8 (80.0-98.0) fL MCH 30.4 (27.0-32.0) pg MCHC 31.8 (31.0-37.0) g/dL RDW Std Deviation 55.6 (28.0-62.0) fl RDW Coeff of Sebastien 16 H (11.0-15.0) % Plt Count 188 (150-400) K/uL MPV 10.80 (7.40-12.00) fL Neut % (Auto) 75.1 (48.0-80.0) % Lymph % (Auto) 15.3 L (16.0-40.0) % [place] % (Auto) 8.9 (0.0-15.0) % Eos % (Auto) 0.5 (0.0-7.0) % Baso % (Auto) 0.2 (0.0-1.5) % Neut # 10.0 H (1.4-5.7) K/uL Lymph # 2.0 (0.6-2.4) K/uL [place] # 1.2 H (0.0-0.8) K/uL Eos # 0.1 (0.0-0.7) K/uL Baso # 0.0 (0.0-0.1) K/uL Nucleated RBC % 0.0 /100WBC Nucleated RBCs # 0 K/uL INR (0.86-1.11) APTT 30.3 (18.6-31.3) SEC Sodium 137 (136-146) mmol/L Potassium 6.2 H (3.5-5.1) mmol/L Chloride 106 (98-110) mmol/L Carbon Dioxide 18 L (21-31) mmol/L BUN 47 H (6.0-23.0) mg/dL Creatinine 3.0 H (0.6-1.5) mg/dL Est Cr Clr Drug Dosing 15.90 mL/min Estimated GFR (MDRD) 15.1 ml/min Glucose 59 L (60-110) mg/dL POC Glucose (60-110) mg/dL Calcium 9.0 (8.8-10.8) mg/dL Total Bilirubin (0.1-1.5) mg/dL AST (5-40) IU/L ALT (8-54) IU/L Alkaline Phosphatase (40-150) Total Protein (6.0-8.0) g/dL Albumin (3.4-4.8) g/dL Globulin (2.0-3.5) g/dL Albumin/Globulin Ratio (1.3-2.8) Urine Color Urine Appearance Urine pH (5.0-8.0) Ur Specific [place] (1.001-1.035) Urine Protein (NEGATIVE) mg/dL Urine Glucose (UA) (NEGATIVE) mg/dL Urine Ketones (NEGATIVE) mg/dL Urine Occult Blood (NEGATIVE) Urine Nitrite (NEGATIVE) Urine Bilirubin (NEGATIVE) Urine Urobilinogen (<2.0) EU/dL Ur Leukocyte Esterase (NEGATIVE) Urine RBC (0-2/HPF) Urine WBC (0-5/HPF) Ur Epithelial Cells (NONE-FEW) Amorphous Sediment (NEGATIVE) Urine Bacteria (NEGATIVE) Hyaline Casts (0-2/LPF) Urine Mucus (NONE-MOD) Ur Random Creatinine mg/dL Ur Random Sodium mmol/L 09/27/16 09/27/16 Range/Units 05:10 05:10 WBC (4.0-11.0) K/uL RBC (4.30-5.90) M/uL Hgb (12.0-16.0) g/dL Hct (36.0-46.0) % MCV (80.0-98.0) fL MCH (27.0-32.0) pg MCHC (31.0-37.0) g/dL RDW Std Deviation (28.0-62.0) fl RDW Coeff of Sebastien (11.0-15.0) % Plt Count (150-400) K/uL MPV (7.40-12.00) fL Neut % (Auto) (48.0-80.0) % Lymph % (Auto) (16.0-40.0) % [place] % (Auto) (0.0-15.0) % Eos % (Auto) (0.0-7.0) % Baso % (Auto) (0.0-1.5) % Neut # (1.4-5.7) K/uL Lymph # (0.6-2.4) K/uL [place] # (0.0-0.8) K/uL Eos # (0.0-0.7) K/uL Baso # (0.0-0.1) K/uL Nucleated RBC % /100WBC Nucleated RBCs # K/uL INR 0.98 (0.86-1.11) APTT (18.6-31.3) SEC Sodium 137 (136-146) mmol/L Potassium 5.5 H (3.5-5.1) mmol/L Chloride 104 (98-110) mmol/L Carbon Dioxide 19 L (21-31) mmol/L BUN 44 H (6.0-23.0) mg/dL Creatinine 2.7 H (0.6-1.5) mg/dL Est Cr Clr Drug Dosing TNP mL/min Estimated GFR (MDRD) 17.1 ml/min Glucose 90 (60-110) mg/dL POC Glucose (60-110) mg/dL Calcium 8.5 L (8.8-10.8) mg/dL Total Bilirubin (0.1-1.5) mg/dL AST (5-40) IU/L ALT (8-54) IU/L Alkaline Phosphatase (40-150) Total Protein (6.0-8.0) g/dL Albumin (3.4-4.8) g/dL Globulin (2.0-3.5) g/dL Albumin/Globulin Ratio (1.3-2.8) Urine Color Urine Appearance Urine pH (5.0-8.0) Ur Specific [place] (1.001-1.035) Urine Protein (NEGATIVE) mg/dL Urine Glucose (UA) (NEGATIVE) mg/dL Urine Ketones (NEGATIVE) mg/dL Urine Occult Blood (NEGATIVE) Urine Nitrite (NEGATIVE) Urine Bilirubin (NEGATIVE) Urine Urobilinogen (<2.0) EU/dL Ur Leukocyte Esterase (NEGATIVE) Urine RBC (0-2/HPF) Urine WBC (0-5/HPF) Ur Epithelial Cells (NONE-FEW) Amorphous Sediment (NEGATIVE) Urine Bacteria (NEGATIVE) Hyaline Casts (0-2/LPF) Urine Mucus (NONE-MOD) Ur Random Creatinine mg/dL Ur Random Sodium mmol/L [place] Results last 24 hrs: Microbiology 09/26/16 15:50 Gram Stain - Final Sputum - Expectorated 09/26/16 17:05 Influenza Type A Antigen Screen - Final Nasopharyngeal Swab - Nare, Left NEGATIVE INFLUENZA A VIRUS AG Influenza Type B Antigen Screen - Final NEGATIVE INFLUENZA B VIRUS AG Med Orders - Current: Current Medications Acetaminophen (Tylenol) 650 mg PO Q4H PRN PRN Reason: Pain (Mild 1-3)/fever Fentanyl (Duragesic) 25 mcg TRDERM Q72H [facility] Last Admin: 09/26/16 13:53 Dose: 25 mcg Heparin Sodium/Dextrose (Heparin 25,000 Units In D5w 500 Ml) 25,000 units in 500 mls @ 32.688 mls/hr IV TITRATE JAZMIN; 18 UNITS/KG/HR PRN Reason: Protocol Sodium Chloride (Normal Saline) 250 mls @ 999 mls/hr IV ASDIRECTED [facility] Last Admin: 09/26/16 21:00 Dose: 999 mls/hr Sodium Chloride (Normal Saline) 1,000 mls @ 100 mls/hr IV ASDIRECTED [facility] Last Admin: 09/27/16 10:22 Dose: 100 mls/hr Levothyroxine Sodium (Synthroid) 100 mcg PO DAILY [facility] Morphine Sulfate (Morphine) 2 mg IVPUSH Q2H PRN PRN Reason: Pain (severe 7-10) Stop: 09/27/16 14:55 Last Admin: 09/27/16 02:20 Dose: 2 mg Ondansetron HCl (Zofran Odt) 4 mg PO Q4H PRN PRN Reason: nausea, able to take PO Last Admin: 09/27/16 09:55 Dose: 4 mg Oxycodone HCl (Oxycodone) 5 mg PO Q4H PRN PRN Reason: Pain (moderate 4-6) Last Admin: 09/27/16 09:55 Dose: 5 mg Sodium Chloride (Saline Flush) 10 ml FLUSH ASDIRECTED PRN PRN Reason: Keep Vein Open Sodium Chloride (Saline Flush) 2.5 ml FLUSH ASDIRECTED PRN PRN Reason: Keep Vein Open Sodium Polystyrene Sulfonate (Kayexalate) 15 gm PO Q6H [facility] Last Admin: 09/27/16 06:09 Dose: 15 gm Discontinued Medications Albuterol (Proventil Neb Soln) 2.5 mg NEB ONETIME ONE Stop: 09/26/16 17:36 Last Admin: 09/26/16 17:50 Dose: 2.5 mg Calcium Gluconate (Calcium Gluconate) 1 gm IVPUSH ONETIME ONE Stop: 09/26/16 18:20 Last Admin: 09/26/16 18:35 Dose: 1 gm Calcium Gluconate (Calcium Gluconate) 1 gm IVPUSH ONETIME ONE Stop: 09/26/16 20:24 Last Admin: 09/26/16 20:47 Dose: 1 gm Calcium Gluconate (Calcium Gluconate) Confirm Administered Dose 1 gm .ROUTE .STK -MED ONE Stop: 09/26/16 20:41 Last Admin: 09/26/16 20:51 Dose: 1 gm Calcium Gluconate (Calcium Gluconate) 1 gm IVPUSH ONETIME ONE Stop: 09/26/16 23:29 Last Admin: 09/27/16 00:01 Dose: 1 gm Dextrose/Water (Dextrose 50% In Water) 50 ml IVPUSH ONETIME ONE Stop: 09/26/16 18:27 Last Admin: 09/26/16 18:49 Dose: 50 ml Enoxaparin Sodium (Lovenox) 90 mg SUBCUT Q24H [facility] Last Admin: 09/26/16 17:44 Dose: 90 mg Fentanyl (Sublimaze) 25 mcg IVPUSH ONETIME ONE Stop: 09/26/16 12:24 Last Admin: 09/26/16 12:34 Dose: 25 mcg Furosemide (Lasix) 40 mg IVPUSH NOW ONE Stop: 09/26/16 17:21 Hydromorphone HCl (Dilaudid) 0.5 mg IM ONETIME ONE Stop: 09/26/16 12:23 Last Admin: 09/26/16 12:31 Dose: Not Given Sodium Chloride (Normal Saline) 1,000 mls @ 999 mls/hr IV STAT ONE Stop: 09/26/16 11:59 Last Admin: 09/26/16 11:16 Dose: 999 mls/hr Sodium Chloride (Normal Saline) 250 mls @ 999 mls/hr IV ASDIRECTED [facility] Last Admin: 09/26/16 17:42 Dose: 999 mls/hr Sodium Chloride (Normal Saline) 250 mls @ 999 mls/hr IV ASDIRECTED [facility] Stop: 09/26/16 19:46 Last Admin: 09/26/16 20:50 Dose: 999 mls/hr Heparin Sodium/Dextrose (Heparin 25,000 Units In D5w 500 Ml) 25,000 units in 500 mls @ 32.688 mls/hr IV TITRATE JAZMIN; 18 UNITS/KG/HR PRN Reason: Protocol Heparin Sodium/Dextrose (Heparin 25,000 Units In D5w 500 Ml) Confirm Administered Dose 25,000 units in 500 mls @ as directed .ROUTE .STK-MED ONE Stop: 09/26/16 21:24 Last Admin: 09/26/16 22:41 Dose: Not Given Insulin Human Regular (Novolin R) 20 unit IVPUSH ONETIME ONE PRN Reason: Protocol Stop: 09/26/16 18:26 Last Admin: 09/26/16 18:45 Dose: 20 units Ketorolac Tromethamine (Toradol) 30 mg IVPUSH ONETIME ONE Stop: 09/26/16 11:00 Last Admin: 09/26/16 11:13 Dose: 30 mg Ondansetron HCl (Zofran) 4 mg IVPUSH ONETIME ONE Stop: 09/26/16 12:23 Last Admin: 09/26/16 12:32 Dose: 4 mg Sodium Bicarbonate (Sodium Bicarbonate 8.4%) 50 meq IVPUSH ONETIME ONE Stop: 09/26/16 23:30 Last Admin: 09/27/16 00:04 Dose: 50 meq Sodium Polystyrene Sulfonate (Kayexalate) 15 gm PO ONETIME ONE Stop: 09/26/16 23:30 Last Admin: 09/26/16 23:54 Dose: 15 gm - Exam General: alert, oriented Lungs: Clear to auscultation, Normal respiratory effort Cardiovascular: Regular Rate, Regular Rhythm Abdomen: bowel sounds present, soft, no tenderness, no distension Extremities: edema (+1 right leg edema, no discoloration, normal pulses) Skin: warm, dry, intact - Problem List Review Problem List Initiated/Reviewed/Updated: Yes - My Orders Last 24 Hours: My Active Orders 09/28/16 09:00 Levothyroxine [Synthroid] 100 mcg PO DAILY - Plan Plan:: 75 yo male with DVT of right common femoral vein extending into popliteal vein DVT: Patient received Lovenox on admission, will switch to heparin drip due to acute kidney disease. has fentanyl patch, oxycodone for pain. HEIDI: IVF fluids and continue to monitor. discontinued NSAIDs Hyperkalemia: has improved with treatment will continue to monitor Leukocytosis: possible due to recent prednisone use CHF/HTN: holding lasix, and supplemental potassium due to HEIDI. Blood pressure is borderline low will resume coreg if blood pressure increases.
[2016-09-27] MEDS: Levothyroxine 100 MCG Tab PO SCH (12:21)
[2016-09-27 13:09] LABS: CHLORIDE,CL 104 mmol/L (98-110); SODIUM,NA 134 mmol/L (136-146)
[2016-09-27] MEDS ORDERED: Sodium Chloride 0.9% 250 ML IV ONE (18:05)
[2016-09-27] MEDS: Sodium Chloride 0.9% 250 ML IV SCH (18:23)
[2016-09-27] MEDS: Acetaminophen 325 MG Tab PO PRN (20:59)
[2016-09-28] MEDS: Sodium Chloride 0.9% 1,000 ML IV SCH ×2 (06:40→16:48)
[2016-09-28] MEDS: Levothyroxine 100 MCG Tab PO SCH (07:48)
[2016-09-28] MEDS ORDERED: Levothyroxine 100 MCG Tab PO SCH (09:00)
[2016-09-28] MEDS: oxyCODONE 5 MG Tab PO PRN ×3 (09:01→20:44)
[2016-09-28] MEDS ORDERED: Diltiazem 25 MG/5 ML SDV IVPUSH ONE (10:42)
[2016-09-28] MEDS ORDERED: Diltiazem 100 MG in Sodium Chloride 0.9% 100 ML IV SCH (10:45)
[2016-09-28] MEDS: Heparin Sodium 25,000 UNITS in Dextrose 5% in Water 500 ML IV SCH ×2 (11:08)
[2016-09-28] MEDS: Carvedilol 6.25 MG Tab PO SCH ×2 (11:17→20:40)
--- NOTE | 2016-09-28 12:03 | PCM.PN ---
- Review of Systems Systems Review Comment:: leg pain improving. - Patient Data Vitals - most recent: Last Vital Signs Temp 36.6 C 09/28/16 08:00 Pulse 119 H 09/28/16 11:17 Resp 15 09/28/16 09:00 BP 118/73 09/28/16 11:17 Pulse Ox 95 09/28/16 09:00 Weight - most recent: 97.6 kg I&O - last 24 hours: Intake & Output 09/27/16 09/28/16 09/28/16 22:59 06:59 14:59 Intake Total 2000 1400 Output Total 250 625 Balance 1755 775 Lab Results last 24 hrs: Laboratory Results - last 24 hr 09/27/16 09/27/16 09/27/16 Range/Units 12:44 17:02 17:02 WBC (4.0-11.0) K/uL RBC (4.30-5.90) M/uL Hgb (12.0-16.0) g/dL Hct (36.0-46.0) % MCV (80.0-98.0) fL MCH (27.0-32.0) pg MCHC (31.0-37.0) g/dL RDW Std Deviation (28.0-62.0) fl RDW Coeff of Sebastien (11.0-15.0) % Plt Count (150-400) K/uL MPV (7.40-12.00) fL Add Manual Diff Neutrophils % (Manual) (48.0-80.0) % Band Neutrophils % % Lymphocytes % (Manual) (16.0-40.0) % Monocytes % (Manual) (0.0-15.0) % Nucleated RBC % /100WBC Absolute Seg Neuts Band Neutrophils # Lymphocytes # (Manual) Monocytes # (Manual) Nucleated RBCs # K/uL APTT 28.0 (18.6-31.3) SEC Sodium 134 L (136-146) mmol/L Potassium 5.7 H 4.8 (3.5-5.1) mmol/L Chloride 104 (98-110) mmol/L Carbon Dioxide 19 L (21-31) mmol/L BUN 42 H (6.0-23.0) mg/dL Creatinine 2.6 H (0.6-1.5) mg/dL Est Cr Clr Drug Dosing TNP Estimated GFR (MDRD) 17.8 ml/min Glucose 131 H (60-110) mg/dL POC Glucose (60-110) mg/dL Calcium 7.9 L (8.8-10.8) mg/dL Troponin I (0.0-0.29) NG/ML 09/27/16 09/27/16 09/28/16 Range/Units 17:22 23:30 06:00 WBC 11.08 H (4.0-11.0) K/uL RBC 3.23 L (4.30-5.90) M/uL Hgb 9.9 L (12.0-16.0) g/dL Hct 30.4 L (36.0-46.0) % MCV 94.1 (80.0-98.0) fL MCH 30.7 (27.0-32.0) pg MCHC 32.6 (31.0-37.0) g/dL RDW Std Deviation 53.9 (28.0-62.0) fl RDW Coeff of Sebastien 16 H (11.0-15.0) % Plt Count 173 (150-400) K/uL MPV 10.80 (7.40-12.00) fL Add Manual Diff YES Neutrophils % (Manual) 65 (48.0-80.0) % Band Neutrophils % 4 % Lymphocytes % (Manual) 25 (16.0-40.0) % Monocytes % (Manual) 6 (0.0-15.0) % Nucleated RBC % 0.0 /100WBC Absolute Seg Neuts 7.2 Band Neutrophils # 0.4 Lymphocytes # (Manual) 2.8 Monocytes # (Manual) 0.7 Nucleated RBCs # 0 K/uL APTT 66.4 H (18.6-31.3) SEC Sodium (136-146) mmol/L Potassium (3.5-5.1) mmol/L Chloride (98-110) mmol/L Carbon Dioxide (21-31) mmol/L BUN (6.0-23.0) mg/dL Creatinine (0.6-1.5) mg/dL Est Cr Clr Drug Dosing Estimated GFR (MDRD) ml/min Glucose (60-110) mg/dL POC Glucose 332 H (60-110) mg/dL Calcium (8.8-10.8) mg/dL Troponin I (0.0-0.29) NG/ML 09/28/16 09/28/16 09/28/16 Range/Units 06:00 06:00 11:16 WBC (4.0-11.0) K/uL RBC (4.30-5.90) M/uL Hgb (12.0-16.0) g/dL Hct (36.0-46.0) % MCV (80.0-98.0) fL MCH (27.0-32.0) pg MCHC (31.0-37.0) g/dL RDW Std Deviation (28.0-62.0) fl RDW Coeff of Sebastien (11.0-15.0) % Plt Count (150-400) K/uL MPV (7.40-12.00) fL Add Manual Diff Neutrophils % (Manual) (48.0-80.0) % Band Neutrophils % % Lymphocytes % (Manual) (16.0-40.0) % Monocytes % (Manual) (0.0-15.0) % Nucleated RBC % /100WBC Absolute Seg Neuts Band Neutrophils # Lymphocytes # (Manual) Monocytes # (Manual) Nucleated RBCs # K/uL APTT 105.9 H 51.2 H (18.6-31.3) SEC Sodium 134 L (136-146) mmol/L Potassium 4.0 (3.5-5.1) mmol/L Chloride 105 (98-110) mmol/L Carbon Dioxide 18 L (21-31) mmol/L BUN 32 H (6.0-23.0) mg/dL Creatinine 1.5 (0.6-1.5) mg/dL Est Cr Clr Drug Dosing 31.81 Estimated GFR (MDRD) 33.7 ml/min Glucose 83 (60-110) mg/dL POC Glucose (60-110) mg/dL Calcium 6.9 L (8.8-10.8) mg/dL Troponin I (0.0-0.29) NG/ML 09/28/16 Range/Units 11:16 WBC (4.0-11.0) K/uL RBC (4.30-5.90) M/uL Hgb (12.0-16.0) g/dL Hct (36.0-46.0) % MCV (80.0-98.0) fL MCH (27.0-32.0) pg MCHC (31.0-37.0) g/dL RDW Std Deviation (28.0-62.0) fl RDW Coeff of Sebastien (11.0-15.0) % Plt Count (150-400) K/uL MPV (7.40-12.00) fL Add Manual Diff Neutrophils % (Manual) (48.0-80.0) % Band Neutrophils % % Lymphocytes % (Manual) (16.0-40.0) % Monocytes % (Manual) (0.0-15.0) % Nucleated RBC % /100WBC Absolute Seg Neuts Band Neutrophils # Lymphocytes # (Manual) Monocytes # (Manual) Nucleated RBCs # K/uL APTT (18.6-31.3) SEC Sodium (136-146) mmol/L Potassium (3.5-5.1) mmol/L Chloride (98-110) mmol/L Carbon Dioxide (21-31) mmol/L BUN (6.0-23.0) mg/dL Creatinine (0.6-1.5) mg/dL Est Cr Clr Drug Dosing Estimated GFR (MDRD) ml/min Glucose (60-110) mg/dL POC Glucose (60-110) mg/dL Calcium (8.8-10.8) mg/dL Troponin I < 0.10 (0.0-0.29) NG/ML [place] Results last 24 hrs: Microbiology 09/26/16 15:50 Gram Stain - Final Sputum - Expectorated Sputum Culture - Final Normal Respiratory [place] 09/26/16 20:37 Urine Culture - Final Urine, Catheterized No Growth Med Orders - Current: Current Medications Acetaminophen (Tylenol) 650 mg PO Q4H PRN PRN Reason: Pain (Mild 1-3)/fever Last Admin: 09/27/16 20:59 Dose: 650 mg Carvedilol (Coreg) 6.25 mg PO BID [facility] Last Admin: 09/28/16 11:17 Dose: 6.25 mg Fentanyl (Duragesic) 25 mcg TRDERM Q72H [facility] Last Admin: 09/26/16 13:53 Dose: 25 mcg Sodium Chloride (Normal Saline) 1,000 mls @ 100 mls/hr IV ASDIRECTED [facility] Last Admin: 09/28/16 06:40 Dose: 100 mls/hr Diltiazem HCl 100 mg/ Sodium (Chloride) 100 mls @ 5 mls/hr IV TITRATE JAZMIN; 5 MG /HR PRN Reason: Protocol Heparin Sodium (Porcine) 25, (000 units/ Dextrose/Water) 505 mls @ 35.26 mls/ hr IV TITRATE JAZMIN; 18 UNITS/KG/HR PRN Reason: Protocol Last Admin: 09/28/16 11:08 Dose: 15 units/kg/hr, 29.39 mls/hr Levothyroxine Sodium (Synthroid) 100 mcg PO ACBREAKFAST JAZMIN Last Admin: 09/28/16 07:48 Dose: 100 mcg Ondansetron HCl (Zofran Odt) 4 mg PO Q4H PRN PRN Reason: nausea, able to take PO Last Admin: 09/27/16 22:55 Dose: 4 mg Oxycodone HCl (Oxycodone) 5 mg PO Q4H PRN PRN Reason: Pain (moderate 4-6) Last Admin: 09/28/16 09:01 Dose: 5 mg Sodium Chloride (Saline Flush) 10 ml FLUSH ASDIRECTED PRN PRN Reason: Keep Vein Open Sodium Chloride (Saline Flush) 2.5 ml FLUSH ASDIRECTED PRN PRN Reason: Keep Vein Open Discontinued Medications Albuterol (Proventil Neb Soln) 2.5 mg NEB ONETIME ONE Stop: 09/26/16 17:36 Last Admin: 09/26/16 17:50 Dose: 2.5 mg Calcium Gluconate (Calcium Gluconate) 1 gm IVPUSH ONETIME ONE Stop: 09/26/16 18:20 Last Admin: 09/26/16 18:35 Dose: 1 gm Calcium Gluconate (Calcium Gluconate) 1 gm IVPUSH ONETIME ONE Stop: 09/26/16 20:24 Last Admin: 09/26/16 20:47 Dose: 1 gm Calcium Gluconate (Calcium Gluconate) Confirm Administered Dose 1 gm .ROUTE .STK -MED ONE Stop: 09/26/16 20:41 Last Admin: 09/26/16 20:51 Dose: 1 gm Calcium Gluconate (Calcium Gluconate) 1 gm IVPUSH ONETIME ONE Stop: 09/26/16 23:29 Last Admin: 09/27/16 00:01 Dose: 1 gm Dextrose/Water (Dextrose 50% In Water) 50 ml IVPUSH ONETIME ONE Stop: 09/26/16 18:27 Last Admin: 09/26/16 18:49 Dose: 50 ml Diltiazem HCl (Diltiazem) 10 mg IVPUSH ONETIME ONE Stop: 09/28/16 10:43 Last Admin: 09/28/16 11:04 Dose: 10 mg Enoxaparin Sodium (Lovenox) 90 mg SUBCUT Q24H JAZMIN Last Admin: 09/26/16 17:44 Dose: 90 mg Fentanyl (Sublimaze) 25 mcg IVPUSH ONETIME ONE Stop: 09/26/16 12:24 Last Admin: 09/26/16 12:34 Dose: 25 mcg Furosemide (Lasix) 40 mg IVPUSH NOW ONE Stop: 09/26/16 17:21 Hydromorphone HCl (Dilaudid) 0.5 mg IM ONETIME ONE Stop: 09/26/16 12:23 Last Admin: 09/26/16 12:31 Dose: Not Given Sodium Chloride (Normal Saline) 1,000 mls @ 999 mls/hr IV STAT ONE Stop: 09/26/16 11:59 Last Admin: 09/26/16 11:16 Dose: 999 mls/hr Sodium Chloride (Normal Saline) 250 mls @ 999 mls/hr IV ASDIRECTED JAZMIN Last Admin: 09/26/16 17:42 Dose: 999 mls/hr Sodium Chloride (Normal Saline) 250 mls @ 999 mls/hr IV ASDIRECTED JAZMIN Stop: 09/26/16 19:46 Last Admin: 09/26/16 20:50 Dose: 999 mls/hr Heparin Sodium/Dextrose (Heparin 25,000 Units In D5w 500 Ml) 25,000 units in 500 mls @ 32.688 mls/hr IV TITRATE JAZMIN; 18 UNITS/KG/HR PRN Reason: Protocol Heparin Sodium/Dextrose (Heparin 25,000 Units In D5w 500 Ml) 25,000 units in 500 mls @ 32.688 mls/hr IV TITRATE JAZMIN; 18 UNITS/KG/HR PRN Reason: Protocol Sodium Chloride (Normal Saline) 250 mls @ 999 mls/hr IV ASDIRECTED JAZMIN Last Infusion: 09/26/16 21:16 Dose: Infused Heparin Sodium/Dextrose (Heparin 25,000 Units In D5w 500 Ml) Confirm Administered Dose 25,000 units in 500 mls @ as directed .ROUTE .STK-MED ONE Stop: 09/26/16 21:24 Last Admin: 09/26/16 22:41 Dose: Not Given Heparin Sodium/Dextrose (Heparin 25,000 Units In D5w 500 Ml) 25,000 units in 500 mls @ 33.552 mls/hr IV TITRATE JAZMIN; 18 UNITS/KG/HR PRN Reason: Protocol Last Titration: 09/28/16 07:16 Dose: 0 units/kg/hr, 0 mls/hr Sodium Chloride (Normal Saline) 250 mls @ 999 mls/hr IV .Bolus ONE Stop: 09/27/16 18:20 Last Admin: 09/27/16 18:25 Dose: 999 mls/hr Insulin Human Regular (Novolin R) 20 unit IVPUSH ONETIME ONE PRN Reason: Protocol Stop: 09/26/16 18:26 Last Admin: 09/26/16 18:45 Dose: 20 units Ketorolac Tromethamine (Toradol) 30 mg IVPUSH ONETIME ONE Stop: 09/26/16 11:00 Last Admin: 09/26/16 11:13 Dose: 30 mg Levothyroxine Sodium (Synthroid) 100 mcg PO DAILY JAZMIN Morphine Sulfate (Morphine) 2 mg IVPUSH Q2H PRN PRN Reason: Pain (severe 7-10) Stop: 09/27/16 14:55 Last Admin: 09/27/16 02:20 Dose: 2 mg Ondansetron HCl (Zofran) 4 mg IVPUSH ONETIME ONE Stop: 09/26/16 12:23 Last Admin: 09/26/16 12:32 Dose: 4 mg Sodium Bicarbonate (Sodium Bicarbonate 8.4%) 50 meq IVPUSH ONETIME ONE Stop: 09/26/16 23:30 Last Admin: 09/27/16 00:04 Dose: 50 meq Sodium Polystyrene Sulfonate (Kayexalate) 15 gm PO Q6H JAZMIN Last Admin: 09/27/16 19:22 Dose: 15 gm Sodium Polystyrene Sulfonate (Kayexalate) 15 gm PO ONETIME ONE Stop: 09/26/16 23:30 Last Admin: 09/26/16 23:54 Dose: 15 gm - Exam General: alert, oriented Lungs: Clear to auscultation, Normal respiratory effort Cardiovascular: Regular Rate, Regular Rhythm Abdomen: bowel sounds present, soft, no tenderness, no distension Extremities: normal pulses, no cyanosis, edema (+1 right leg edema) Skin: warm, dry, intact - Problem List Review Problem List Initiated/Reviewed/Updated: Yes - My Orders Last 24 Hours: My Active Orders 09/28/16 07:30 Levothyroxine [Synthroid] 100 mcg PO ACBREAKFAST 09/28/16 10:56 Heparin Sodium 25,000 units Dextrose 5% in Water 500 ml IV TITRATE 09/28/16 11:00 Carvedilol [Coreg] 6.25 mg PO BID 09/28/16 17:30 aPTT [PTT,PARTIAL THROMBOPLSTIN TIME] [COAG] Q6H 09/28/16 23:30 aPTT [PTT,PARTIAL THROMBOPLSTIN TIME] [COAG] Q6H 09/29/16 05:30 aPTT [PTT,PARTIAL THROMBOPLSTIN TIME] [COAG] Q6H - Plan Plan:: 75 yo male with DVT of right common femoral vein extending into popliteal vein DVT: continue heparin drip, on fentanyl patch for pain HEIDI: improving with IV fluids, discontinued NSAIDs atrial fibrillation: will resume coreg, diltazem drip started for elevated rate. Hyperkalemia: resolving Leukocytosis: possible due to recent prednisone use CHF/HTN: holding lasix, and supplemental potassium due to HEIDI.
[2016-09-28] MEDS: Ondansetron 4 MG Tab.DIS PO PRN ×2 (15:03→20:49)
[2016-09-28] MEDS ORDERED: Ondansetron 4 MG/2 ML SDV IVPUSH ONE (23:14)
[2016-09-28] MEDS ORDERED: Sodium Chloride 0.9% 250 ML IV SCH (23:15)
[2016-09-29] MEDS: oxyCODONE 5 MG Tab PO PRN ×4 (02:47→23:04)
[2016-09-29 05:57] LABS: CHLORIDE,CL 108 mmol/L (98-110); SODIUM,NA 136 mmol/L (136-146)
[2016-09-29] MEDS: Ondansetron 4 MG Tab.DIS PO PRN (06:09)
[2016-09-29] MEDS: Levothyroxine 100 MCG Tab PO SCH (06:31)
[2016-09-29] MEDS ORDERED: Promethazine 25 MG Tab PO ONE (06:54)
[2016-09-29] MEDS ORDERED: Calcium Carbonate 500 MG Tab.Chew PO ONE (07:21)
[2016-09-29] MEDS ORDERED: Furosemide 40 MG/4 ML VIAL IVPUSH ONE (09:00)
--- NOTE | 2016-09-29 09:07 | PCM.PN ---
- General Info Date of Service: 09/29/16 Admission Dx/Problem (Free Text): DVT Subjective Update: Patient feeling nauseous this morning was given Zofran without improvement. Given phenergan with improvement. Having increased O2 requirements overnight. Having some shortness of breath. No fevers or chills. Appetite decreased but having BM's. Functional Status: Reports: pain controlled, incentive spirometry - Review of Systems General: Reports: Fatigue, Malaise. Denies: Fever, Chills HEENT: Reports: sinus congestion. Denies: headaches Pulmonary: Reports: shortness of breath. Denies: cough, sputum, hemoptysis, wheezing Cardiovascular: Reports: Edema. Denies: Chest Pain, Palpitations Gastrointestinal: Denies: Abdominal pain, Diarrhea, Hematochezia, Melena Genitourinary: Denies: dysuria, hematuria Musculoskeletal: Reports: leg pain Skin: Denies: cyanosis Neurological: Denies: Confusion, Dizziness Psychiatric: Denies: confusion - Patient Data Vitals - most recent: Last Vital Signs Temp 36.6 C 09/29/16 08:00 Pulse 80 09/28/16 18:00 Resp 18 09/29/16 08:00 BP 124/63 09/29/16 08:00 Pulse Ox 98 09/29/16 08:00 Weight - most recent: 96.8 kg I&O - last 24 hours: Intake & Output 09/28/16 09/29/16 09/29/16 22:59 06:59 14:59 Intake Total 2100 650 Output Total 1425 850 Balance 675 -200 Lab Results last 24 hrs: Laboratory Results - last 24 hr 09/28/16 09/28/16 09/28/16 Range/Units 11:16 11:16 11:16 WBC (4.0-11.0) K/uL RBC (4.30-5.90) M/uL Hgb (12.0-16.0) g/dL Hct (36.0-46.0) % MCV (80.0-98.0) fL MCH (27.0-32.0) pg MCHC (31.0-37.0) g/dL RDW Std Deviation (28.0-62.0) fl RDW Coeff of Sebastien (11.0-15.0) % Plt Count (150-400) K/uL MPV (7.40-12.00) fL Neut % (Auto) (48.0-80.0) % Lymph % (Auto) (16.0-40.0) % Denali % (Auto) (0.0-15.0) % Eos % (Auto) (0.0-7.0) % Baso % (Auto) (0.0-1.5) % Neut # (1.4-5.7) K/uL Lymph # (0.6-2.4) K/uL Denali # (0.0-0.8) K/uL Eos # (0.0-0.7) K/uL Baso # (0.0-0.1) K/uL Nucleated RBC % /100WBC Nucleated RBCs # K/uL APTT 51.2 H (18.6-31.3) SEC Sodium (136-146) mmol/L Potassium (3.5-5.1) mmol/L Chloride (98-110) mmol/L Carbon Dioxide (21-31) mmol/L BUN (6.0-23.0) mg/dL Creatinine (0.6-1.5) mg/dL Est Cr Clr Drug Dosing mL/min Estimated GFR (MDRD) ml/min Glucose (60-110) mg/dL Calcium (8.8-10.8) mg/dL Troponin I < 0.10 (0.0-0.29) NG/ML TSH 3rd Generation 4.42 (0.47-5.0) uIU/mL 09/28/16 09/28/16 09/28/16 Range/Units 17:13 17:13 23:43 WBC (4.0-11.0) K/uL RBC (4.30-5.90) M/uL Hgb (12.0-16.0) g/dL Hct (36.0-46.0) % MCV (80.0-98.0) fL MCH (27.0-32.0) pg MCHC (31.0-37.0) g/dL RDW Std Deviation (28.0-62.0) fl RDW Coeff of Sebastien (11.0-15.0) % Plt Count (150-400) K/uL MPV (7.40-12.00) fL Neut % (Auto) (48.0-80.0) % Lymph % (Auto) (16.0-40.0) % Denali % (Auto) (0.0-15.0) % Eos % (Auto) (0.0-7.0) % Baso % (Auto) (0.0-1.5) % Neut # (1.4-5.7) K/uL Lymph # (0.6-2.4) K/uL Denali # (0.0-0.8) K/uL Eos # (0.0-0.7) K/uL Baso # (0.0-0.1) K/uL Nucleated RBC % /100WBC Nucleated RBCs # K/uL APTT 75.1 H 71.3 H (18.6-31.3) SEC Sodium (136-146) mmol/L Potassium (3.5-5.1) mmol/L Chloride (98-110) mmol/L Carbon Dioxide (21-31) mmol/L BUN (6.0-23.0) mg/dL Creatinine (0.6-1.5) mg/dL Est Cr Clr Drug Dosing mL/min Estimated GFR (MDRD) ml/min Glucose (60-110) mg/dL Calcium (8.8-10.8) mg/dL Troponin I < 0.10 (0.0-0.29) NG/ML TSH 3rd Generation (0.47-5.0) uIU/mL 09/29/16 09/29/16 09/29/16 Range/Units 05:30 05:30 05:30 WBC 8.09 (4.0-11.0) K/uL RBC 3.02 L (4.30-5.90) M/uL Hgb 9.2 L (12.0-16.0) g/dL Hct 28.5 L (36.0-46.0) % MCV 94.4 (80.0-98.0) fL MCH 30.5 (27.0-32.0) pg MCHC 32.3 (31.0-37.0) g/dL RDW Std Deviation 52.5 (28.0-62.0) fl RDW Coeff of Sebastien 15 (11.0-15.0) % Plt Count 181 (150-400) K/uL MPV 9.50 (7.40-12.00) fL Neut % (Auto) 62.5 (48.0-80.0) % Lymph % (Auto) 25.8 (16.0-40.0) % Denali % (Auto) 9.8 (0.0-15.0) % Eos % (Auto) 1.5 (0.0-7.0) % Baso % (Auto) 0.4 (0.0-1.5) % Neut # 5.1 (1.4-5.7) K/uL Lymph # 2.1 (0.6-2.4) K/uL Denali # 0.8 (0.0-0.8) K/uL Eos # 0.1 (0.0-0.7) K/uL Baso # 0.0 (0.0-0.1) K/uL Nucleated RBC % 0.0 /100WBC Nucleated RBCs # 0 K/uL APTT 52.2 H (18.6-31.3) SEC Sodium 136 (136-146) mmol/L Potassium 4.2 (3.5-5.1) mmol/L Chloride 108 (98-110) mmol/L Carbon Dioxide 21 (21-31) mmol/L BUN 16 (6.0-23.0) mg/dL Creatinine 0.8 (0.6-1.5) mg/dL Est Cr Clr Drug Dosing 59.64 mL/min Estimated GFR (MDRD) > 60.0 ml/min Glucose 91 (60-110) mg/dL Calcium 6.7 L (8.8-10.8) mg/dL Troponin I (0.0-0.29) NG/ML TSH 3rd Generation (0.47-5.0) uIU/mL Brando Results last 24 hrs: Microbiology 09/26/16 15:50 Gram Stain - Final Sputum - Expectorated Sputum Culture - Final Normal Respiratory Ysabel 09/26/16 20:37 Urine Culture - Final Urine, Catheterized No Growth Med Orders - Current: Current Medications Acetaminophen (Tylenol) 650 mg PO Q4H PRN PRN Reason: Pain (Mild 1-3)/fever Last Admin: 09/27/16 20:59 Dose: 650 mg Carvedilol (Coreg) 3.125 mg PO BID JAZMIN Fentanyl (Duragesic) 25 mcg TRDERM Q72H JAZMIN Last Admin: 09/26/16 13:53 Dose: 25 mcg Diltiazem HCl 100 mg/ Sodium (Chloride) 100 mls @ 5 mls/hr IV TITRATE JAZMIN; 5 MG /HR PRN Reason: Protocol Last Titration: 09/28/16 15:15 Dose: 0 mg/hr, 0 mls/hr Heparin Sodium (Porcine) 25, (000 units/ Dextrose/Water) 505 mls @ 35.26 mls/ hr IV TITRATE JAZMIN; 18 UNITS/KG/HR PRN Reason: Protocol Last Titration: 09/29/16 00:37 Dose: 11 units/kg/hr, 21.55 mls/hr Sodium Chloride (Normal Saline) 250 mls @ 500 mls/hr IV ASDIRECTED JAZMIN Last Admin: 09/28/16 22:58 Dose: 500 mls/hr Levothyroxine Sodium (Synthroid) 100 mcg PO ACBREAKFAST JAZMIN Last Admin: 09/29/16 06:31 Dose: 100 mcg Ondansetron HCl (Zofran Odt) 4 mg PO Q4H PRN PRN Reason: nausea, able to take PO Last Admin: 09/29/16 06:09 Dose: 4 mg Oxycodone HCl (Oxycodone) 5 mg PO Q4H PRN PRN Reason: Pain (moderate 4-6) Last Admin: 09/29/16 02:47 Dose: 5 mg Sodium Chloride (Saline Flush) 10 ml FLUSH ASDIRECTED PRN PRN Reason: Keep Vein Open Sodium Chloride (Saline Flush) 2.5 ml FLUSH ASDIRECTED PRN PRN Reason: Keep Vein Open Discontinued Medications Albuterol (Proventil Neb Soln) 2.5 mg NEB ONETIME ONE Stop: 09/26/16 17:36 Last Admin: 09/26/16 17:50 Dose: 2.5 mg Calcium Carbonate/Glycine (Tums) 1,000 mg PO DAILY ONE Stop: 09/29/16 07:22 Last Admin: 09/29/16 07:43 Dose: 1,000 mg Calcium Gluconate (Calcium Gluconate) 1 gm IVPUSH ONETIME ONE Stop: 09/26/16 18:20 Last Admin: 09/26/16 18:35 Dose: 1 gm Calcium Gluconate (Calcium Gluconate) 1 gm IVPUSH ONETIME ONE Stop: 09/26/16 20:24 Last Admin: 09/26/16 20:47 Dose: 1 gm Calcium Gluconate (Calcium Gluconate) Confirm Administered Dose 1 gm .ROUTE .STK -MED ONE Stop: 09/26/16 20:41 Last Admin: 09/26/16 20:51 Dose: 1 gm Calcium Gluconate (Calcium Gluconate) 1 gm IVPUSH ONETIME ONE Stop: 09/26/16 23:29 Last Admin: 09/27/16 00:01 Dose: 1 gm Carvedilol (Coreg) 6.25 mg PO BID [facility] Last Admin: 09/28/16 20:40 Dose: 6.25 mg Dextrose/Water (Dextrose 50% In Water) 50 ml IVPUSH ONETIME ONE Stop: 09/26/16 18:27 Last Admin: 09/26/16 18:49 Dose: 50 ml Diltiazem HCl (Diltiazem) 10 mg IVPUSH ONETIME ONE Stop: 09/28/16 10:43 Last Admin: 09/28/16 11:04 Dose: 10 mg Enoxaparin Sodium (Lovenox) 90 mg SUBCUT Q24H [facility] Last Admin: 09/26/16 17:44 Dose: 90 mg Fentanyl (Sublimaze) 25 mcg IVPUSH ONETIME ONE Stop: 09/26/16 12:24 Last Admin: 09/26/16 12:34 Dose: 25 mcg Furosemide (Lasix) 40 mg IVPUSH NOW ONE Stop: 09/26/16 17:21 Furosemide (Lasix) 40 mg IVPUSH NOW ONE Stop: 09/29/16 09:01 Hydromorphone HCl (Dilaudid) 0.5 mg IM ONETIME ONE Stop: 09/26/16 12:23 Last Admin: 09/26/16 12:31 Dose: Not Given Sodium Chloride (Normal Saline) 1,000 mls @ 999 mls/hr IV STAT ONE Stop: 09/26/16 11:59 Last Admin: 09/26/16 11:16 Dose: 999 mls/hr Sodium Chloride (Normal Saline) 250 mls @ 999 mls/hr IV ASDIRECTED [facility] Last Admin: 09/26/16 17:42 Dose: 999 mls/hr Sodium Chloride (Normal Saline) 250 mls @ 999 mls/hr IV ASDIRECTED [facility] Stop: 09/26/16 19:46 Last Admin: 09/26/16 20:50 Dose: 999 mls/hr Heparin Sodium/Dextrose (Heparin 25,000 Units In D5w 500 Ml) 25,000 units in 500 mls @ 32.688 mls/hr IV TITRATE JAZMIN; 18 UNITS/KG/HR PRN Reason: Protocol Heparin Sodium/Dextrose (Heparin 25,000 Units In D5w 500 Ml) 25,000 units in 500 mls @ 32.688 mls/hr IV TITRATE JAZMIN; 18 UNITS/KG/HR PRN Reason: Protocol Sodium Chloride (Normal Saline) 250 mls @ 999 mls/hr IV ASDIRECTED JAZMIN Last Infusion: 09/26/16 21:16 Dose: Infused Heparin Sodium/Dextrose (Heparin 25,000 Units In D5w 500 Ml) Confirm Administered Dose 25,000 units in 500 mls @ as directed .ROUTE .STK-MED ONE Stop: 09/26/16 21:24 Last Admin: 09/26/16 22:41 Dose: Not Given Sodium Chloride (Normal Saline) 1,000 mls @ 100 mls/hr IV ASDIRECTED JAZMIN Last Infusion: 09/28/16 16:40 Dose: Infused Heparin Sodium/Dextrose (Heparin 25,000 Units In D5w 500 Ml) 25,000 units in 500 mls @ 33.552 mls/hr IV TITRATE JAZMIN; 18 UNITS/KG/HR PRN Reason: Protocol Last Titration: 09/28/16 08:15 Dose: 15 units/kg/hr, 29.28 mls/hr Sodium Chloride (Normal Saline) 250 mls @ 999 mls/hr IV .Bolus ONE Stop: 09/27/16 18:20 Last Admin: 09/27/16 18:25 Dose: 999 mls/hr Insulin Human Regular (Novolin R) 20 unit IVPUSH ONETIME ONE PRN Reason: Protocol Stop: 09/26/16 18:26 Last Admin: 09/26/16 18:45 Dose: 20 units Ketorolac Tromethamine (Toradol) 30 mg IVPUSH ONETIME ONE Stop: 09/26/16 11:00 Last Admin: 09/26/16 11:13 Dose: 30 mg Levothyroxine Sodium (Synthroid) 100 mcg PO DAILY JAZMIN Morphine Sulfate (Morphine) 2 mg IVPUSH Q2H PRN PRN Reason: Pain (severe 7-10) Stop: 09/27/16 14:55 Last Admin: 09/27/16 02:20 Dose: 2 mg Ondansetron HCl (Zofran) 4 mg IVPUSH ONETIME ONE Stop: 09/26/16 12:23 Last Admin: 09/26/16 12:32 Dose: 4 mg Ondansetron HCl (Zofran) 4 mg IVPUSH ONETIME ONE Stop: 09/28/16 23:15 Last Admin: 09/28/16 23:20 Dose: 4 mg Promethazine HCl (Phenergan) 25 mg PO ONETIME ONE Stop: 09/29/16 06:55 Last Admin: 09/29/16 07:42 Dose: 25 mg Sodium Bicarbonate (Sodium Bicarbonate 8.4%) 50 meq IVPUSH ONETIME ONE Stop: 09/26/16 23:30 Last Admin: 09/27/16 00:04 Dose: 50 meq Sodium Polystyrene Sulfonate (Kayexalate) 15 gm PO Q6H JAZMIN Last Admin: 09/27/16 19:22 Dose: 15 gm Sodium Polystyrene Sulfonate (Kayexalate) 15 gm PO ONETIME ONE Stop: 09/26/16 23:30 Last Admin: 09/26/16 23:54 Dose: 15 gm - Exam Quality Assessment: supplemental oxygen, DVT prophylaxis General: alert, oriented, cooperative, no acute distress HEENT: Pupils equal, Pupils reactive, Mucous membr. moist/pink Neck: supple, trachea midline Lungs: Clear to auscultation, Normal respiratory effort, Crackles (LLL) Cardiovascular: Regular Rate, Regular Rhythm Abdomen: bowel sounds present, soft, no tenderness, no distension Extremities: no edema, edema (right lower leg +2 pitting edema) Peripheral Pulses: 2+: radial (L), radial (R), posterior tibial (L), posterior tibial (R), dorsalis pedis (L), dorsalis pedis (R) Skin: warm, dry, intact Neurological: no new focal deficit Psy/Mental Status: alert, normal affect, normal mood - Problem List & Annotations (1) Right femoral vein DVT SNOMED Code(s): 122850763 Code(s): I82.411 - ACUTE EMBOLISM AND THROMBOSIS OF RIGHT FEMORAL VEIN Status: Acute Priority: High Current Visit: Yes Qualifiers: Chronicity: acute Qualified Code(s): I82.411 - Acute embolism and thrombosis of right femoral vein (2) CHF (congestive heart failure) SNOMED Code(s): 26600056 Code(s): I50.9 - HEART FAILURE, UNSPECIFIED Status: Chronic Priority: Medium Current Visit: Yes Qualifiers: Congestive heart failure type: systolic Congestive heart failure chronicity : unspecified congestive heart failure chronicity Qualified Code(s): I50.20 - Unspecified systolic (congestive) heart failure (3) HTN (hypertension) SNOMED Code(s): 55339846 Code(s): I10 - ESSENTIAL (PRIMARY) HYPERTENSION Status: Chronic Priority : Medium Current Visit: Yes Qualifiers: Hypertension type: essential hypertension Qualified Code(s): I10 - Essential (primary) hypertension (4) Acute hyperkalemia SNOMED Code(s): 5165453 Code(s): E87.5 - HYPERKALEMIA Status: Resolved Priority: Medium Current Visit: Yes (5) Acute kidney failure SNOMED Code(s): 34692225 Code(s): N17.9 - ACUTE KIDNEY FAILURE, UNSPECIFIED Status: Resolved Priority: High Current Visit: Yes Qualifiers: Acute renal failure type: unspecified Qualified Code(s): N17.9 - Acute kidney failure, unspecified - Problem List Review Problem List Initiated/Reviewed/Updated: Yes - My Orders Last 24 Hours: My Active Orders 09/29/16 07:36 CXR [Chest 1V Frontal] [CR] Stat 09/29/16 07:39 RT Incentive Spirometry [RC] ASDIRECTED 09/30/16 05:00 BASIC METABOLIC PANEL,BMP [CHEM] DAILY CBC WITH AUTO DIFF [HEME] DAILY - Plan Plan:: 75 yo female admitted 09/26/16 with DVT of right common femoral vein extending into popliteal vein, hyperkalemia, and Acute renal failure. DVT: Continue heparin drip, on fentanyl patch for pain will d/c today secondary to dizziness. Fentanyl transdermal placed in ED and patient has never had patch before. HEIDI: Back to baseline today Cr. 0.8. Patient is looking more volume overloaded and CXR confirmed this. Will restart home lasix. Hold all NSAID's. FeNA: 1.88 % which makes diagnosis difficult but most likely HEIDI secondary to NSAID use. Will monitor potassium as Lasix has been started. Atrial fibrillation: Developed a-fib over weekend. Resolved with <24hrs of diltazem drip. Home Coreg was restarted. Echo is pending and Troponins were negative for ischemic events. Hyperkalemia: Resolved, Kayexalate discontinued will monitor and may need to add back home potassium replacement now that home lasix has been restarted. Leukocytosis: Resolved at this time. Patient has been afebrile entire stay but was on Prednisone. Prednisone most likely cause of mild elevation as it has resolved since being admitted and prednisone discontinued. Will cont. to monitor. CHF/HTN: Patient requiring O2 over the evening and on exam today noticed crackles and rales in LLL. CXR was taken this morning but suspect patient is volume is mildly volume overloaded. Will restart home Lasix today and monitor potassium. VTE: On Heparin drip for DVT Dispo: 2-4 days
[2016-09-29] MEDS: Carvedilol 3.125 MG Tab PO SCH ×2 (09:12→20:38)
[2016-09-29] MEDS: Heparin Sodium 25,000 UNITS in Dextrose 5% in Water 500 ML IV SCH ×2 (09:18)
[2016-09-29] MEDS: Furosemide 40 MG Tab PO SCH ×2 (10:56→20:38)
--- NOTE | 2016-09-29 14:27 | PCM.SN ---
- Free Text/Narrative Note: Transthoracic echo report 09/28/16: #1 left ventricular ejection fraction, by visual estimation, is 60-65%. #2 normal left ventricular systolic function #3 impaired relaxation, grade 1, pattern of LV diastolic filling. #4 mild mitral valve regurgitation #5 compared to echo on 11/21/15, LVEF is now normal. Blood pressure improved since removing fentanyl patch.
--- NOTE | 2016-09-29 15:32 | CR ---
EXAM DATE: 09/26/16 PATIENT'S AGE: 75 Patient: TOÑA TOLEDO Facility: [place], [place] Site . Site : 1940 Study: XRay Chest [id number]/17/2017 9:55:35 PM Ordering Physician: Alyssa Quiñonez Final Report: INDICATION: Shortness of breath, tachycardia, right leg DVT TECHNIQUE: Chest 2 views. COMPARISON: September 08, 2016 FINDINGS: Cardiovascular and mediastinum: Heart size and vasculature are normal in caliber and appearance. Mediastinum is within normal limits. Lungs and pleural spaces: Lungs are clear. No sign of infiltrate or mass. No sign of pleural effusion. No pneumothorax. Bones and soft tissues: No significant findings. IMPRESSION: No sign of acute disease. Dictated by Amy Uribe MD @ Sep 26 2016 10:49PM (Electronic Signature) Report Signed by Proxy and Original Signed Document filed in the Medical Record. MTDD
--- NOTE | 2016-09-29 17:15 | US ---
EXAM DATE: 09/26/16 PATIENT'S AGE: 75 Patient: TOÑA TOLEDO Facility: [place], [place] Site . Site : 1940 Study: US Abdomen [id number]/18/2017 12:16:26 PM Ordering Physician: Alyssa Quiñonez Final Report: INDICATION: Acute renal failure. TECHNIQUE: Transabdominal imaging with attention to the kidneys. COMPARISON: None. FINDINGS: The right kidney measures 9.5 cm in length. Left kidney measures 10.4 cm in length. Both kidneys demonstrate normal cortical thickness and parenchymal echotexture. No appreciable renal mass. No hydronephrosis. Andrea catheter is seen in the urinary bladder. IMPRESSION: Unremarkable sonographic appearance of the kidneys. Dictated by Piter Lee MD @ 09/27/2016 3:52:37 PM Dictated by: Piter Lee MD @ 09/27/2016 15:52:40 (Electronic Signature) Report Signed by Proxy and Original Signed Document filed in the Medical Record. MTDD
--- NOTE | 2016-09-29 19:58 | CR ---
EXAM DATE: 09/26/16 PATIENT'S AGE: 75 Patient: TOÑA TOLEDO Facility: [place], [place] Site . Site : 1940 Study: XRay Chest [id number]/20/2017 7:55:09 AM Ordering Physician: Alyssa Quiñonez Final Report: INDICATION: Shortness of breath. Technique: AP portable chest x-ray. Comparison: Chest x-ray 09/26/2016. Findings: Calcific densities along the inferior aspect of the right glenohumeral joint may be intra-articular loose bodies and were present previously. Moderate arthritic changes both shoulders. Mild AC separation on the right. Tortuous descending thoracic aorta. Heart size within normal limits. Mild interstitial prominence in the lungs chronic. No focal dense infiltrate or consolidation either lung. Chest otherwise unremarkable. Dictated by Colin Botello MD @ Sep 29 2016 8:00AM (Electronic Signature) Report Signed by Proxy and Original Signed Document filed in the Medical Record. MTDD
[2016-09-29] MEDS: Acetaminophen 325 MG Tab PO PRN (20:39)
[2016-09-30] MEDS: oxyCODONE 5 MG Tab PO PRN ×2 (04:18→15:06)
[2016-09-30 05:33] LABS: CHLORIDE,CL 107 mmol/L (98-110); SODIUM,NA 140 mmol/L (136-146)
[2016-09-30] MEDS ORDERED: Calcium Carbonate 500 MG Tab.Chew PO ONE (07:22)
[2016-09-30] MEDS ORDERED: Aspirin 81 MG Tab.Chew PO SCH (07:30)
[2016-09-30] MEDS: Levothyroxine 100 MCG Tab PO SCH (07:50)
--- NOTE | 2016-09-30 08:42 | PCM.PN ---
- General Info Date of Service: 09/30/16 Admission Dx/Problem (Free Text): DVT Subjective Update: Patient doing well today. Just fatigued. No dizziness or nausea this morning. Eating well and eliminating. Weak with ambulation at this point. Some pain in right hip/lower back. Swelling in right leg improved. No sob, chest pain, or palpitations. No other complaints. Functional Status: Reports: pain controlled, tolerating diet, ambulating, incentive spirometry - Review of Systems General: Reports: Weakness, Fatigue, Appetite. Denies: Fever HEENT: Denies: headaches, sinus congestion Pulmonary: Denies: shortness of breath, hemoptysis, wheezing Cardiovascular: Reports: Edema. Denies: Chest Pain, Palpitations Gastrointestinal: Denies: Abdominal pain, Constipation, Diarrhea Genitourinary: Denies: dysuria Musculoskeletal: Reports: back pain, leg pain. Denies: neck pain Skin: Denies: cyanosis Neurological: Denies: Confusion, Dizziness, Headache Psychiatric: Denies: confusion - Patient Data Vitals - most recent: Last Vital Signs Temp 36.8 C 09/30/16 04:00 Pulse 79 09/30/16 06:55 Resp 14 09/30/16 06:55 BP 127/67 09/30/16 06:55 Pulse Ox 92 L 09/30/16 06:55 Weight - most recent: 95.5 kg I&O - last 24 hours: Intake & Output 09/29/16 09/30/16 09/30/16 22:59 06:59 14:59 Intake Total 1100 300 Output Total 1800 1200 Balance -700 -900 Lab Results last 24 hrs: Laboratory Results - last 24 hr 09/29/16 09/30/16 09/30/16 Range/Units 11:41 04:48 04:48 WBC 8.08 (4.0-11.0) K/uL RBC 3.19 L (4.30-5.90) M/uL Hgb 9.7 L (12.0-16.0) g/dL Hct 29.9 L (36.0-46.0) % MCV 93.7 (80.0-98.0) fL MCH 30.4 (27.0-32.0) pg MCHC 32.4 (31.0-37.0) g/dL RDW Std Deviation 51.6 (28.0-62.0) fl RDW Coeff of Sebastien 15 (11.0-15.0) % Plt Count 215 (150-400) K/uL MPV 9.60 (7.40-12.00) fL Neut % (Auto) 58.9 (48.0-80.0) % Lymph % (Auto) 28.0 (16.0-40.0) % Sharkey % (Auto) 11.0 (0.0-15.0) % Eos % (Auto) 1.5 (0.0-7.0) % Baso % (Auto) 0.6 (0.0-1.5) % Neut # 4.8 (1.4-5.7) K/uL Lymph # 2.3 (0.6-2.4) K/uL Sharkey # 0.9 H (0.0-0.8) K/uL Eos # 0.1 (0.0-0.7) K/uL Baso # 0.1 (0.0-0.1) K/uL Nucleated RBC % 0.0 /100WBC Nucleated RBCs # 0 K/uL APTT 44.8 H (18.6-31.3) SEC Sodium 140 (136-146) mmol/L Potassium 4.0 (3.5-5.1) mmol/L Chloride 107 (98-110) mmol/L Carbon Dioxide 22 (21-31) mmol/L BUN 11 (6.0-23.0) mg/dL Creatinine 0.8 (0.6-1.5) mg/dL Est Cr Clr Drug Dosing TNP Estimated GFR (MDRD) > 60.0 ml/min Glucose 91 (60-110) mg/dL Calcium 7.4 L (8.8-10.8) mg/dL 09/30/16 Range/Units 04:48 WBC (4.0-11.0) K/uL RBC (4.30-5.90) M/uL Hgb (12.0-16.0) g/dL Hct (36.0-46.0) % MCV (80.0-98.0) fL MCH (27.0-32.0) pg MCHC (31.0-37.0) g/dL RDW Std Deviation (28.0-62.0) fl RDW Coeff of Sebastien (11.0-15.0) % Plt Count (150-400) K/uL MPV (7.40-12.00) fL Neut % (Auto) (48.0-80.0) % Lymph % (Auto) (16.0-40.0) % Sharkey % (Auto) (0.0-15.0) % Eos % (Auto) (0.0-7.0) % Baso % (Auto) (0.0-1.5) % Neut # (1.4-5.7) K/uL Lymph # (0.6-2.4) K/uL Sharkey # (0.0-0.8) K/uL Eos # (0.0-0.7) K/uL Baso # (0.0-0.1) K/uL Nucleated RBC % /100WBC Nucleated RBCs # K/uL APTT 44.7 H (18.6-31.3) SEC Sodium (136-146) mmol/L Potassium (3.5-5.1) mmol/L Chloride (98-110) mmol/L Carbon Dioxide (21-31) mmol/L BUN (6.0-23.0) mg/dL Creatinine (0.6-1.5) mg/dL Est Cr Clr Drug Dosing Estimated GFR (MDRD) ml/min Glucose (60-110) mg/dL Calcium (8.8-10.8) mg/dL Med Orders - Current: Current Medications Acetaminophen (Tylenol) 650 mg PO Q4H PRN PRN Reason: Pain (Mild 1-3)/fever Last Admin: 09/29/16 20:39 Dose: 650 mg Aspirin (Aspirin) 81 mg PO [facility] Last Admin: 09/30/16 07:53 Dose: 81 mg Carvedilol (Coreg) 3.125 mg PO BID [facility] Last Admin: 09/29/16 20:38 Dose: 3.125 mg Furosemide (Lasix) 40 mg PO BID [facility] Last Admin: 09/29/16 20:38 Dose: 40 mg Heparin Sodium (Porcine) 25, (000 units/ Dextrose/Water) 505 mls @ 35.26 mls/ hr IV TITRATE JAZMIN; 18 UNITS/KG/HR PRN Reason: Protocol Last Titration: 09/30/16 05:58 Dose: 13 units/kg/hr, 25.47 mls/hr Sodium Chloride (Normal Saline) 250 mls @ 500 mls/hr IV ASDIRECTED [facility] Last Admin: 09/28/16 22:58 Dose: 500 mls/hr Levothyroxine Sodium (Synthroid) 100 mcg PO ACBREAKFAST [facility] Last Admin: 09/30/16 07:50 Dose: 100 mcg Ondansetron HCl (Zofran Odt) 4 mg PO Q4H PRN PRN Reason: nausea, able to take PO Last Admin: 09/29/16 06:09 Dose: 4 mg Oxycodone HCl (Oxycodone) 5 mg PO Q4H PRN PRN Reason: Pain (moderate 4-6) Last Admin: 09/30/16 04:18 Dose: 5 mg Potassium Chloride (Klor-Con M20) 20 meq PO BID [facility] Sodium Chloride (Saline Flush) 10 ml FLUSH ASDIRECTED PRN PRN Reason: Keep Vein Open Sodium Chloride (Saline Flush) 2.5 ml FLUSH ASDIRECTED PRN PRN Reason: Keep Vein Open Discontinued Medications Albuterol (Proventil Neb Soln) 2.5 mg NEB ONETIME ONE Stop: 09/26/16 17:36 Last Admin: 09/26/16 17:50 Dose: 2.5 mg Calcium Carbonate/Glycine (Tums) 1,000 mg PO DAILY ONE Stop: 09/29/16 07:22 Last Admin: 09/29/16 07:43 Dose: 1,000 mg Calcium Carbonate/Glycine (Tums) 1,000 mg PO ONETIME ONE Stop: 09/30/16 07:23 Last Admin: 09/30/16 07:49 Dose: 1,000 mg Calcium Gluconate (Calcium Gluconate) 1 gm IVPUSH ONETIME ONE Stop: 09/26/16 18:20 Last Admin: 09/26/16 18:35 Dose: 1 gm Calcium Gluconate (Calcium Gluconate) 1 gm IVPUSH ONETIME ONE Stop: 09/26/16 20:24 Last Admin: 09/26/16 20:47 Dose: 1 gm Calcium Gluconate (Calcium Gluconate) Confirm Administered Dose 1 gm .ROUTE .STK -MED ONE Stop: 09/26/16 20:41 Last Admin: 09/26/16 20:51 Dose: 1 gm Calcium Gluconate (Calcium Gluconate) 1 gm IVPUSH ONETIME ONE Stop: 09/26/16 23:29 Last Admin: 09/27/16 00:01 Dose: 1 gm Carvedilol (Coreg) 6.25 mg PO BID [facility] Last Admin: 09/28/16 20:40 Dose: 6.25 mg Dextrose/Water (Dextrose 50% In Water) 50 ml IVPUSH ONETIME ONE Stop: 09/26/16 18:27 Last Admin: 09/26/16 18:49 Dose: 50 ml Diltiazem HCl (Diltiazem) 10 mg IVPUSH ONETIME ONE Stop: 09/28/16 10:43 Last Admin: 09/28/16 11:04 Dose: 10 mg Enoxaparin Sodium (Lovenox) 90 mg SUBCUT Q24H [facility] Last Admin: 09/26/16 17:44 Dose: 90 mg Fentanyl (Sublimaze) 25 mcg IVPUSH ONETIME ONE Stop: 09/26/16 12:24 Last Admin: 09/26/16 12:34 Dose: 25 mcg Fentanyl (Duragesic) 25 mcg TRDERM Q72H [facility] Last Admin: 09/26/16 13:53 Dose: 25 mcg Furosemide (Lasix) 40 mg IVPUSH NOW ONE Stop: 09/26/16 17:21 Last Admin: 09/30/16 07:33 Dose: Not Given Furosemide (Lasix) 40 mg IVPUSH NOW ONE Stop: 09/29/16 09:01 Hydromorphone HCl (Dilaudid) 0.5 mg IM ONETIME ONE Stop: 09/26/16 12:23 Last Admin: 09/26/16 12:31 Dose: Not Given Sodium Chloride (Normal Saline) 1,000 mls @ 999 mls/hr IV STAT ONE Stop: 09/26/16 11:59 Last Admin: 09/26/16 11:16 Dose: 999 mls/hr Sodium Chloride (Normal Saline) 250 mls @ 999 mls/hr IV ASDIRECTED [facility] Last Admin: 09/26/16 17:42 Dose: 999 mls/hr Sodium Chloride (Normal Saline) 250 mls @ 999 mls/hr IV ASDIRECTED [facility] Stop: 09/26/16 19:46 Last Admin: 09/26/16 20:50 Dose: 999 mls/hr Heparin Sodium/Dextrose (Heparin 25,000 Units In D5w 500 Ml) 25,000 units in 500 mls @ 32.688 mls/hr IV TITRATE JAZMIN; 18 UNITS/KG/HR PRN Reason: Protocol Heparin Sodium/Dextrose (Heparin 25,000 Units In D5w 500 Ml) 25,000 units in 500 mls @ 32.688 mls/hr IV TITRATE JAZMIN; 18 UNITS/KG/HR PRN Reason: Protocol Sodium Chloride (Normal Saline) 250 mls @ 999 mls/hr IV ASDIRECTED JAZMIN Last Infusion: 09/26/16 21:16 Dose: Infused Heparin Sodium/Dextrose (Heparin 25,000 Units In D5w 500 Ml) Confirm Administered Dose 25,000 units in 500 mls @ as directed .ROUTE .STK-MED ONE Stop: 09/26/16 21:24 Last Admin: 09/26/16 22:41 Dose: Not Given Sodium Chloride (Normal Saline) 1,000 mls @ 100 mls/hr IV ASDIRECTED JAZMIN Last Infusion: 09/28/16 16:40 Dose: Infused Heparin Sodium/Dextrose (Heparin 25,000 Units In D5w 500 Ml) 25,000 units in 500 mls @ 33.552 mls/hr IV TITRATE JAZMIN; 18 UNITS/KG/HR PRN Reason: Protocol Last Titration: 09/28/16 08:15 Dose: 15 units/kg/hr, 29.28 mls/hr Sodium Chloride (Normal Saline) 250 mls @ 999 mls/hr IV .Bolus ONE Stop: 09/27/16 18:20 Last Admin: 09/27/16 18:25 Dose: 999 mls/hr Diltiazem HCl 100 mg/ Sodium (Chloride) 100 mls @ 5 mls/hr IV TITRATE JAZMIN; 5 MG /HR PRN Reason: Protocol Last Titration: 09/28/16 15:15 Dose: 0 mg/hr, 0 mls/hr Insulin Human Regular (Novolin R) 20 unit IVPUSH ONETIME ONE PRN Reason: Protocol Stop: 09/26/16 18:26 Last Admin: 09/26/16 18:45 Dose: 20 units Ketorolac Tromethamine (Toradol) 30 mg IVPUSH ONETIME ONE Stop: 09/26/16 11:00 Last Admin: 09/26/16 11:13 Dose: 30 mg Levothyroxine Sodium (Synthroid) 100 mcg PO DAILY [facility] Morphine Sulfate (Morphine) 2 mg IVPUSH Q2H PRN PRN Reason: Pain (severe 7-10) Stop: 09/27/16 14:55 Last Admin: 09/27/16 02:20 Dose: 2 mg Ondansetron HCl (Zofran) 4 mg IVPUSH ONETIME ONE Stop: 09/26/16 12:23 Last Admin: 09/26/16 12:32 Dose: 4 mg Ondansetron HCl (Zofran) 4 mg IVPUSH ONETIME ONE Stop: 09/28/16 23:15 Last Admin: 09/28/16 23:20 Dose: 4 mg Promethazine HCl (Phenergan) 25 mg PO ONETIME ONE Stop: 09/29/16 06:55 Last Admin: 09/29/16 07:42 Dose: 25 mg Sodium Bicarbonate (Sodium Bicarbonate 8.4%) 50 meq IVPUSH ONETIME ONE Stop: 09/26/16 23:30 Last Admin: 09/27/16 00:04 Dose: 50 meq Sodium Polystyrene Sulfonate (Kayexalate) 15 gm PO Q6H [facility] Last Admin: 09/27/16 19:22 Dose: 15 gm Sodium Polystyrene Sulfonate (Kayexalate) 15 gm PO ONETIME ONE Stop: 09/26/16 23:30 Last Admin: 09/26/16 23:54 Dose: 15 gm - Exam Quality Assessment: DVT prophylaxis General: alert, oriented, cooperative, no acute distress HEENT: Pupils equal, Pupils reactive, EOMI, Mucous membr. moist/pink Neck: supple, trachea midline, no JVD Lungs: Clear to auscultation, Normal respiratory effort Cardiovascular: Regular Rate, Regular Rhythm, Murmurs Abdomen: bowel sounds present, soft, no tenderness, no distension Extremities: normal pulses, no calf tenderness, edema Peripheral Pulses: 2+: radial (L), radial (R), posterior tibial (L), posterior tibial (R), dorsalis pedis (L), dorsalis pedis (R) Skin: warm, dry, intact Neurological: no new focal deficit Psy/Mental Status: alert, normal affect, normal mood - Problem List & Annotations (1) Right femoral vein DVT SNOMED Code(s): 089252003 Code(s): I82.411 - ACUTE EMBOLISM AND THROMBOSIS OF RIGHT FEMORAL VEIN Status: Acute Priority: High Current Visit: Yes Qualifiers: Chronicity: acute Qualified Code(s): I82.411 - Acute embolism and thrombosis of right femoral vein (2) CHF (congestive heart failure) SNOMED Code(s): 77052779 Code(s): I50.9 - HEART FAILURE, UNSPECIFIED Status: Chronic Priority: Medium Current Visit: Yes Qualifiers: Congestive heart failure type: systolic Congestive heart failure chronicity : unspecified congestive heart failure chronicity Qualified Code(s): I50.20 - Unspecified systolic (congestive) heart failure (3) HTN (hypertension) SNOMED Code(s): 51920802 Code(s): I10 - ESSENTIAL (PRIMARY) HYPERTENSION Status: Chronic Priority : Medium Current Visit: Yes Qualifiers: Hypertension type: essential hypertension Qualified Code(s): I10 - Essential (primary) hypertension (4) Acute hyperkalemia SNOMED Code(s): 7526553 Code(s): E87.5 - HYPERKALEMIA Status: Resolved Priority: Medium Current Visit: Yes (5) Acute kidney failure SNOMED Code(s): 43643376 Code(s): N17.9 - ACUTE KIDNEY FAILURE, UNSPECIFIED Status: Resolved Priority: High Current Visit: Yes Qualifiers: Acute renal failure type: unspecified Qualified Code(s): N17.9 - Acute kidney failure, unspecified - Problem List Review Problem List Initiated/Reviewed/Updated: Yes - My Orders Last 24 Hours: My Active Orders 09/29/16 07:39 RT Incentive Spirometry [RC] ASDIRECTED 09/30/16 07:30 Aspirin 81 mg PO TuThSa 09/30/16 09:00 Potassium Chloride [Klor-Con M20] 20 meq PO BID - Plan Plan:: 75 yo female admitted 09/26/16 with DVT of right common femoral vein extending into popliteal vein, hyperkalemia, and Acute renal failure. DVT: Continue heparin drip today. Talked with pharmacy and can start Xarelto as soon as we stop Heparin drip. Patient okay with cost as pharmacist has spoke with her. HEIDI: Resolved. Have restarted home lasix and potassium replacement will cont. to monitor. Hold all NSAID's. Atrial fibrillation: Resolved with <24hrs of diltazem drip. Cont. home Coreg. Echo showed good EF of 60-65% with normal left systolic funtion. See 09/29 simple progress note for Echo report. Hyperkalemia: Resolved have restarted home potassium as home lasix has been started and K is 4.0 today. Leukocytosis: Resolved most likely secondary to home prednisone. CHF/HTN: Home Lasix and potassium restarted. Patient is doing well on current home meds. Cont. to monitor VTE: On Heparin drip for DVT Dispo: Tomorrow with home health most likely Step-down from ICU today.
[2016-09-30] MEDS: Potassium Chloride 20 MEQ Tab.ER PO SCH ×2 (08:47→20:04)
[2016-09-30] MEDS: Furosemide 40 MG Tab PO SCH ×2 (08:47→20:15)
[2016-09-30] MEDS: Carvedilol 3.125 MG Tab PO SCH ×2 (08:48→20:05)
[2016-09-30] MEDS: Heparin Sodium 25,000 UNITS in Dextrose 5% in Water 500 ML IV SCH ×2 (09:37)
[2016-09-30] MEDS: Acetaminophen 325 MG Tab PO PRN (12:06)
[2016-09-30] MEDS: Simethicone 80 MG Tab.Chew PO PRN ×2 (12:06→21:44)
[2016-09-30] MEDS ORDERED: Calcium Carbonate 500 MG Tab.Chew PO PRN (20:45)
[2016-10-01] MEDS: Acetaminophen 325 MG Tab PO PRN (01:11)
[2016-10-01] MEDS: Simethicone 80 MG Tab.Chew PO PRN (02:37)
[2016-10-01] MEDS ORDERED: Heparin Sodium/D5W 25,000 UNITS/500 ML BAG ONE (06:11)
[2016-10-01] MEDS: Levothyroxine 100 MCG Tab PO SCH (06:46)
[2016-10-01 07:58] LABS: CHLORIDE,CL 106 mmol/L (98-110); SODIUM,NA 139 mmol/L (136-146)
[2016-10-01] MEDS ORDERED: Furosemide 40 MG Tab PO SCH (08:00)
[2016-10-01 08:36] VITALS: BP 131/68
[2016-10-01] MEDS: Potassium Chloride 20 MEQ Tab.ER PO SCH (08:55)
[2016-10-01] MEDS: Carvedilol 3.125 MG Tab PO SCH (08:55)
[2016-10-01] MEDS ORDERED: Calcium Carbonate 500 MG Tab.Chew PO ONE (11:06)
[2016-10-01] MEDS ORDERED: Rivaroxaban 15 MG Tab PO ONE (12:02)
--- NOTE | 2016-10-01 15:59 | ECHO ---
The echocardiogram report can be seen in this patient's EMR in the Reports section. KIM
--- NOTE | 2016-10-01 18:49 | PCM.DCSUM1 ---
<FelicianoLuigi mcmillan - Last Filed: 10/01/16 18:46> Discharge Summary - Hospital Course HPI Initial Comments: 75 yo female admitted 09/26/16 with DVT of right common femoral vein and found to have Acute kidney injury and hyperkalemia with pmh of CHF, and Htn Brief History: Patient initially had pain on weekend before admission. She had felt right hip pain and stated that it began hurting Thursday evening. She then was unable to walk and was taking by ambulance to ED where x-rays were preformed and she was diagnosed with osteoarthritis and given pain meds. The pain meds only helped some but she did return to the ED that next Thursday due to more severe pain again. As per patient she was evaluated again and given pain meds for severe osteoarthritis. On day of admission, she awoke to a swollen, "purple" upper leg and thus returned to ED where a DVT was found extending from femoral vein to popliteal vein. Secondary to her inability to walk or care for herself at home from the DVT patient was admitted for anticoagulation. Patient did report that she has had a previous clot in the same leg but lower in 2003 that was also was associated with PE. She also stated that she has had placed a [place] filter at that time as well. Patient did not complain of shortness of breath but stated that she did have some sinus congestion, and productive cough that had started the day before. She denied any fever, chills, nausea or vomiting, diarrhea, or other signs of systemic infection. She did have a white count 13,000 in the ED. - Discharge Data Discharge Date: 10/01/16 Discharge Disposition: Home, W Home Health Agency 06 Condition: Good - Discharge Diagnosis/Problem(s) (1) Right femoral vein DVT SNOMED Code(s): 458860788 ICD Code: I82.411 - ACUTE EMBOLISM AND THROMBOSIS OF RIGHT FEMORAL VEIN Status: Acute Priority: High Qualifiers: Chronicity: acute Qualified Code(s): I82.411 - Acute embolism and thrombosis of right femoral vein (2) CHF (congestive heart failure) SNOMED Code(s): 02813446 ICD Code: I50.9 - HEART FAILURE, UNSPECIFIED Status: Chronic Priority: Medium Qualifiers: Congestive heart failure type: systolic Congestive heart failure chronicity : unspecified congestive heart failure chronicity Qualified Code(s): I50.20 - Unspecified systolic (congestive) heart failure (3) HTN (hypertension) SNOMED Code(s): 09880062 ICD Code: I10 - ESSENTIAL (PRIMARY) HYPERTENSION Status: Chronic Priority : Medium Qualifiers: Hypertension type: essential hypertension Qualified Code(s): I10 - Essential (primary) hypertension (4) Acute hyperkalemia SNOMED Code(s): 2681134 ICD Code: E87.5 - HYPERKALEMIA Status: Resolved Priority: Low (5) Acute kidney failure SNOMED Code(s): 76349902 ICD Code: N17.9 - ACUTE KIDNEY FAILURE, UNSPECIFIED Status: Resolved Priority: Low Qualifiers: Acute renal failure type: with acute tubular necrosis Qualified Code(s): N17.0 - Acute kidney failure with tubular necrosis - Patient Summary/Data Consults: Consultations 09/26/16 14:50 PT Evaluation and Treatment [CONS] Routine 09/30/16 11:11 PT Evaluation and Treatment [CONS] Routine Hospital Course: When CMP returned it was discovered that the patient had acute kidney injury with a BUN/creatinine of 46 and 3.3 respectively. She also had hyperkalemia with initial potassium of 6.8 and repeat of 7.1. EKG did show peaked T waves. Patient was immediately transferred to the ICU and given calcium gluconate as well as albuterol, D50 and insulin and Kayexalate. Patient remained on telemetry for the majority of her stay and did have one event where she was in A. fib for less than 24 hours controlled with a diltiazem drip and returned to normal sinus rhythm after starting home antihypertensives. Patient was treated with heparin IV for her DVT and her hyperkalemia as well as acute kidney injury resolved with IV fluid hydration. Fractional excretion of sodium was 1.88 and it was thought that her acute kidney injury was most likely secondary to acute tubular necrosis from NSAID use. Patient had been using diclofenac at home for her lower back pain and had received multiple doses of Toradol in the emergency department. There probably was some prerenal component secondary to her volume depletion on admission as well. Echocardiogram performed while inpatient showed a left ventricular ejection fraction of 60-65%, normal left ventricular systolic function, impaired relaxation (grade 1) pattern of LV diastolic filling, mild mitral valve regurgitation, but improved LVEF compared to echo on 11/21/15. - Patient Instructions Diet: Heart Healthy Diet Activity: Rest and Relax Today Driving: Do Not Drive Showering/Bathing: May Shower Notify Provider of: Fever, Increased Pain, Nausea and/or Vomiting Other/Special Instructions: Follow-up with Dr. Garcia and Dr. Yeager apartment groundskeeper. Take medications as prescribed. Return to ED if worsening of symptoms. Home health resume. - Discharge Plan Prescriptions/Med Rec: Carvedilol [Coreg] 3.125 mg PO BID #28 tablet Rivaroxaban [Xarelto] 15 mg PO BID #32 tablet Home Medications: Home Meds Aspirin 1 tab PO ASDIRECTED 09/21/16 [History] Calcium Carbonate [Calcium] 1 tab PO BID 09/21/16 [History] Potassium Chloride 20 meq PO BID 09/21/16 [History] Calcitonin (Tyler) [Miacalcin Nasal [place]rs[place]ine] 1 spray FERNANDO Q2D 09/26/16 [History] Cyanocobalamin (Vitamin B-12) [Cyanocobalamin Injection] 1,000 mcg IM ASDIRECTED 09/26/16 [History] Enalapril [Vasotec] 2.5 mg PO BID 09/26/16 [History] Levothyroxine [Synthroid] 100 mcg PO DAILY 09/26/16 [History] Primidone 75 mg PO BEDTIME 09/26/16 [History] Furosemide 40 mg PO BID 09/29/16 [History] Carvedilol [Coreg] 3.125 mg PO BID #28 tablet 10/01/16 [Rx] Rivaroxaban [Xarelto] 15 mg PO BID #32 tablet 10/01/16 [Rx] Patient Handouts: Deep Vein Thrombosis Forms: ED Department Discharge Referrals: Denisse Brian MD [Physician] - 10/07/16 1:00 pm PCP,None [Primary Care Provider] - Kp Garcia MD [Physician] - 10/09/16 8:30 am - Discharge Summary/Plan Comment DC Time >30 min.: Yes Discharge Summary/Plan Comment: 75 yo female admitted 09/26/16 with DVT of right common femoral vein and found to have Acute kidney injury and hyperkalemia with pmh of CHF, and Htn Patient initially had pain on weekend before admission. She had felt right hip pain and stated that it began hurting Thursday evening. She then was unable to walk and was taking by ambulance to ED where x-rays were preformed and she was diagnosed with osteoarthritis and given pain meds. The pain meds only helped some but she did return to the ED that next Thursday due to more severe pain again. As per patient she was evaluated again and given pain meds for severe osteoarthritis. On day of admission, she awoke to a swollen, "purple" upper leg and thus returned to ED where a DVT was found extending from femoral vein to popliteal vein. Secondary to her inability to walk or care for herself at home from the DVT patient was admitted for anticoagulation. Patient did report that she has had a previous clot in the same leg but lower in 2003 that was also was associated with PE. She also stated that she has had placed a [place] filter at that time as well. Patient did not complain of shortness of breath but stated that she did have some sinus congestion, and productive cough that had started the day before. She denied any fever, chills, nausea or vomiting, diarrhea, or other signs of systemic infection. She did have a white count 13,000 in the ED. When CMP returned it was discovered that the patient had acute kidney injury with a BUN/creatinine of 46 and 3.3 respectively. She also had hyperkalemia with initial potassium of 6.8 and repeat of 7.1. EKG did show peaked T waves. Patient was immediately transferred to the ICU and given calcium gluconate as well as albuterol, D50 and insulin and Kayexalate. Patient remained on telemetry for the majority of her stay and did have one event where she was in A. fib for less than 24 hours controlled with a diltiazem drip and returned to normal sinus rhythm after starting home antihypertensives. Patient was treated with heparin IV for her DVT and her hyperkalemia as well as acute kidney injury resolved with IV fluid hydration. Fractional excretion of sodium was 1.88 and it was thought that her acute kidney injury was most likely secondary to acute tubular necrosis from NSAID use. Patient had been using diclofenac at home for her lower back pain and had received multiple doses of Toradol in the emergency department. There probably was some prerenal component secondary to her volume depletion on admission as well. Echocardiogram performed while inpatient showed a left ventricular ejection fraction of 60-65%, normal left ventricular systolic function, impaired relaxation (grade 1) pattern of LV diastolic filling, mild mitral valve regurgitation, but improved LVEF compared to echo on 11/21/15. The patient did well for the rest of her stay and on day of discharge patient was transitioned to Xarelto. On discharge, it was discussed with pharmacy that the patient would not need twice a day dosing of Xarelto for the entire 21 days as she been on heparin. She was discharged with 15 days of twice a day Xarelto. She was also scheduled for a followup appointment with Dr. Garcia her PCP. Patient also has a followup appointment with Dr. Parish, apartment groundskeeper, on September 30 which she was instructed to attend secondary to her history of congestive heart failure, hypertension, and episode of A. fib during her hospitalization. Patient 's Coreg was also decreased to 3.125 twice a day during her stay. 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 - General Info Date of Service: 10/01/16 Admission Dx/Problem (Free Text: DVT Subjective Update: Doing well, pain controlled. Has had decreased swelling of right leg. Eating and eliminating without difficulty. Sleeping well. No complaints. Ready to go home. - Review of Systems General: Reports: Weakness, Fatigue. Denies: Fever HEENT: Denies: sinus congestion, sore throat Pulmonary: Denies: shortness of breath, hemoptysis, wheezing Cardiovascular: Reports: Edema. Denies: Chest Pain, Palpitations Gastrointestinal: Denies: Abdominal pain, Constipation, Nausea Genitourinary: Denies: dysuria, hematuria Musculoskeletal: Reports: back pain, leg pain. Denies: neck pain Skin: Denies: cyanosis Neurological: Denies: Confusion Psychiatric: Denies: confusion - Patient Data Vitals - Most Recent: Last Vital Signs Temp 36.2 C 10/01/16 08:00 Pulse 100 10/01/16 08:55 Resp 16 10/01/16 08:00 BP 131/68 10/01/16 08:55 Pulse Ox 95 10/01/16 08:00 Weight - Most Recent: 93.7 kg I&O - Last 24 hours: Intake & Output 10/01/16 10/01/16 10/01/16 06:59 14:59 22:59 Intake Total 1100 Output Total 1550 Balance -450 Lab Results - Last 24 hrs: Laboratory Results - last 24 hr 10/01/16 10/01/16 10/01/16 Range/Units 05:40 05:40 05:40 WBC 9.66 (4.0-11.0) K/uL RBC 3.28 L (4.30-5.90) M/uL Hgb 9.9 L (12.0-16.0) g/dL Hct 30.8 L (36.0-46.0) % MCV 93.9 (80.0-98.0) fL MCH 30.2 (27.0-32.0) pg MCHC 32.1 (31.0-37.0) g/dL RDW Std Deviation 51.8 (28.0-62.0) fl RDW Coeff of Sebastien 15 (11.0-15.0) % Plt Count 276 (150-400) K/uL MPV 10.00 (7.40-12.00) fL Add Manual Diff YES Neutrophils % (Manual) 55 (48.0-80.0) % Band Neutrophils % 3 % Lymphocytes % (Manual) 35 (16.0-40.0) % Monocytes % (Manual) 4 (0.0-15.0) % Eosinophils % (Manual) 1 (0.0-7.0) % Basophils % (Manual) 2 H (0.0-1.5) % Nucleated RBC % 0.0 /100WBC Absolute Seg Neuts 5.3 Band Neutrophils # 0.3 Lymphocytes # (Manual) 3.4 Monocytes # (Manual) 0.4 Eosinophils # (Manual) 0.1 Basophils # (Manual) 0 Nucleated RBCs # 0 K/uL APTT 56.7 H (18.6-31.3) SEC Sodium 139 (136-146) mmol/L Potassium 4.2 (3.5-5.1) mmol/L Chloride 106 (98-110) mmol/L Carbon Dioxide 23 (21-31) mmol/L BUN 10 (6.0-23.0) mg/dL Creatinine 0.8 (0.6-1.5) mg/dL Est Cr Clr Drug Dosing TNP Estimated GFR (MDRD) > 60.0 ml/min Glucose 97 (60-110) mg/dL Calcium 8.2 L (8.8-10.8) mg/dL Med Orders - Current: Current Medications Discontinued Medications Acetaminophen (Tylenol) 650 mg PO Q4H PRN PRN Reason: Pain (Mild 1-3)/fever Last Admin: 10/01/16 01:11 Dose: 650 mg Albuterol (Proventil Neb Soln) 2.5 mg NEB ONETIME ONE Stop: 09/26/16 17:36 Last Admin: 09/26/16 17:50 Dose: 2.5 mg Aspirin (Aspirin) 81 mg PO [facility] Last Admin: 09/30/16 07:53 Dose: 81 mg Calcium Carbonate/Glycine (Tums) 1,000 mg PO DAILY ONE Stop: 09/29/16 07:22 Last Admin: 09/29/16 07:43 Dose: 1,000 mg Calcium Carbonate/Glycine (Tums) 1,000 mg PO ONETIME ONE Stop: 09/30/16 07:23 Last Admin: 09/30/16 07:49 Dose: 1,000 mg Calcium Carbonate/Glycine (Tums) 500 - 1,000 mg PO Q8H PRN PRN Reason: Indigestion Last Admin: 09/30/16 20:53 Dose: 1,000 mg Calcium Carbonate/Glycine (Tums) 1,000 mg PO ONETIME ONE Stop: 10/01/16 11:07 Last Admin: 10/01/16 12:19 Dose: 1,000 mg Calcium Gluconate (Calcium Gluconate) 1 gm IVPUSH ONETIME ONE Stop: 09/26/16 18:20 Last Admin: 09/26/16 18:35 Dose: 1 gm Calcium Gluconate (Calcium Gluconate) 1 gm IVPUSH ONETIME ONE Stop: 09/26/16 20:24 Last Admin: 09/26/16 20:47 Dose: 1 gm Calcium Gluconate (Calcium Gluconate) Confirm Administered Dose 1 gm .ROUTE .STK -MED ONE Stop: 09/26/16 20:41 Last Admin: 09/26/16 20:51 Dose: 1 gm Calcium Gluconate (Calcium Gluconate) 1 gm IVPUSH ONETIME ONE Stop: 09/26/16 23:29 Last Admin: 09/27/16 00:01 Dose: 1 gm Carvedilol (Coreg) 6.25 mg PO BID [facility] Last Admin: 09/28/16 20:40 Dose: 6.25 mg Carvedilol (Coreg) 3.125 mg PO BID [facility] Last Admin: 10/01/16 08:55 Dose: 3.125 mg Dextrose/Water (Dextrose 50% In Water) 50 ml IVPUSH ONETIME ONE Stop: 09/26/16 18:27 Last Admin: 09/26/16 18:49 Dose: 50 ml Diltiazem HCl (Diltiazem) 10 mg IVPUSH ONETIME ONE Stop: 09/28/16 10:43 Last Admin: 09/28/16 11:04 Dose: 10 mg Enoxaparin Sodium (Lovenox) 90 mg SUBCUT Q24H [facility] Last Admin: 09/26/16 17:44 Dose: 90 mg Fentanyl (Sublimaze) 25 mcg IVPUSH ONETIME ONE Stop: 09/26/16 12:24 Last Admin: 09/26/16 12:34 Dose: 25 mcg Fentanyl (Duragesic) 25 mcg TRDERM Q72H [facility] Last Admin: 09/26/16 13:53 Dose: 25 mcg Furosemide (Lasix) 40 mg IVPUSH NOW ONE Stop: 09/26/16 17:21 Last Admin: 09/30/16 07:33 Dose: Not Given Furosemide (Lasix) 40 mg IVPUSH NOW ONE Stop: 09/29/16 09:01 Furosemide (Lasix) 40 mg PO BID JAZMIN Last Admin: 09/30/16 20:15 Dose: 40 mg Furosemide (Lasix) 40 mg PO BIDDIURETIC [facility] Last Admin: 10/01/16 08:55 Dose: 40 mg Hydromorphone HCl (Dilaudid) 0.5 mg IM ONETIME ONE Stop: 09/26/16 12:23 Last Admin: 09/26/16 12:31 Dose: Not Given Sodium Chloride (Normal Saline) 1,000 mls @ 999 mls/hr IV STAT ONE Stop: 09/26/16 11:59 Last Admin: 09/26/16 11:16 Dose: 999 mls/hr Sodium Chloride (Normal Saline) 250 mls @ 999 mls/hr IV ASDIRECTED [facility] Last Admin: 09/26/16 17:42 Dose: 999 mls/hr Sodium Chloride (Normal Saline) 250 mls @ 999 mls/hr IV ASDIRECTED [facility] Stop: 09/26/16 19:46 Last Admin: 09/26/16 20:50 Dose: 999 mls/hr Heparin Sodium/Dextrose (Heparin 25,000 Units In D5w 500 Ml) 25,000 units in 500 mls @ 32.688 mls/hr IV TITRATE JAZMIN; 18 UNITS/KG/HR PRN Reason: Protocol Heparin Sodium/Dextrose (Heparin 25,000 Units In D5w 500 Ml) 25,000 units in 500 mls @ 32.688 mls/hr IV TITRATE JAZMIN; 18 UNITS/KG/HR PRN Reason: Protocol Sodium Chloride (Normal Saline) 250 mls @ 999 mls/hr IV ASDIRECTED JAZMIN Last Infusion: 09/26/16 21:16 Dose: Infused Heparin Sodium/Dextrose (Heparin 25,000 Units In D5w 500 Ml) Confirm Administered Dose 25,000 units in 500 mls @ as directed .ROUTE .K-MED ONE Stop: 09/26/16 21:24 Last Admin: 09/26/16 22:41 Dose: Not Given Sodium Chloride (Normal Saline) 1,000 mls @ 100 mls/hr IV ASDIRECTED JAZMIN Last Infusion: 09/28/16 16:40 Dose: Infused Heparin Sodium/Dextrose (Heparin 25,000 Units In D5w 500 Ml) 25,000 units in 500 mls @ 33.552 mls/hr IV TITRATE JAZMIN; 18 UNITS/KG/HR PRN Reason: Protocol Last Titration: 09/28/16 08:15 Dose: 15 units/kg/hr, 29.28 mls/hr Sodium Chloride (Normal Saline) 250 mls @ 999 mls/hr IV .Bolus ONE Stop: 09/27/16 18:20 Last Admin: 09/27/16 18:25 Dose: 999 mls/hr Diltiazem HCl 100 mg/ Sodium (Chloride) 100 mls @ 5 mls/hr IV TITRATE JAZMIN; 5 MG /HR PRN Reason: Protocol Last Titration: 09/28/16 15:15 Dose: 0 mg/hr, 0 mls/hr Heparin Sodium (Porcine) 25, (000 units/ Dextrose/Water) 505 mls @ 35.26 mls/ hr IV TITRATE JAZMIN; 18 UNITS/KG/HR PRN Reason: Protocol Last Admin: 09/30/16 09:37 Dose: 13 units/kg/hr, 25.47 mls/hr Sodium Chloride (Normal Saline) 250 mls @ 500 mls/hr IV ASDIRECTED JAZMIN Last Admin: 09/28/16 22:58 Dose: 500 mls/hr Heparin Sodium/Dextrose (Heparin 25,000 Units In D5w 500 Ml) Confirm Administered Dose 25,000 units in 500 mls @ as directed .ROUTE .STK-MED ONE Stop: 10/01/16 06:12 Last Admin: 10/01/16 06:39 Dose: 13 units Insulin Human Regular (Novolin R) 20 unit IVPUSH ONETIME ONE PRN Reason: Protocol Stop: 09/26/16 18:26 Last Admin: 09/26/16 18:45 Dose: 20 units Ketorolac Tromethamine (Toradol) 30 mg IVPUSH ONETIME ONE Stop: 09/26/16 11:00 Last Admin: 09/26/16 11:13 Dose: 30 mg Levothyroxine Sodium (Synthroid) 100 mcg PO DAILY JAZMIN Levothyroxine Sodium (Synthroid) 100 mcg PO ACBREAKFAST JAZMIN Last Admin: 10/01/16 06:46 Dose: 100 mcg Morphine Sulfate (Morphine) 2 mg IVPUSH Q2H PRN PRN Reason: Pain (severe 7-10) Stop: 09/27/16 14:55 Last Admin: 09/27/16 02:20 Dose: 2 mg Ondansetron HCl (Zofran) 4 mg IVPUSH ONETIME ONE Stop: 09/26/16 12:23 Last Admin: 09/26/16 12:32 Dose: 4 mg Ondansetron HCl (Zofran Odt) 4 mg PO Q4H PRN PRN Reason: nausea, able to take PO Last Admin: 09/29/16 06:09 Dose: 4 mg Ondansetron HCl (Zofran) 4 mg IVPUSH ONETIME ONE Stop: 09/28/16 23:15 Last Admin: 09/28/16 23:20 Dose: 4 mg Oxycodone HCl (Oxycodone) 5 mg PO Q4H PRN PRN Reason: Pain (moderate 4-6) Last Admin: 09/30/16 15:06 Dose: 5 mg Potassium Chloride (Klor-Con M20) 20 meq PO BID JAZMIN Last Admin: 10/01/16 08:55 Dose: 20 meq Promethazine HCl (Phenergan) 25 mg PO ONETIME ONE Stop: 09/29/16 06:55 Last Admin: 09/29/16 07:42 Dose: 25 mg Rivaroxaban (Xarelto) 15 mg PO NOW ONE Stop: 10/01/16 12:03 Last Admin: 10/01/16 12:19 Dose: 15 mg Simethicone (Simethicone) 80 mg PO Q4H PRN PRN Reason: other Last Admin: 10/01/16 02:37 Dose: 80 mg Sodium Bicarbonate (Sodium Bicarbonate 8.4%) 50 meq IVPUSH ONETIME ONE Stop: 09/26/16 23:30 Last Admin: 09/27/16 00:04 Dose: 50 meq Sodium Chloride (Saline Flush) 10 ml FLUSH ASDIRECTED PRN PRN Reason: Keep Vein Open Sodium Chloride (Saline Flush) 2.5 ml FLUSH ASDIRECTED PRN PRN Reason: Keep Vein Open Sodium Polystyrene Sulfonate (Kayexalate) 15 gm PO Q6H JAZMIN Last Admin: 09/27/16 19:22 Dose: 15 gm Sodium Polystyrene Sulfonate (Kayexalate) 15 gm PO ONETIME ONE Stop: 09/26/16 23:30 Last Admin: 09/26/16 23:54 Dose: 15 gm - Exam Quality Assessment: Reports: DVT prophylaxis General: Reports: alert, oriented, cooperative, no acute distress HEENT: Reports: Pupils equal, Pupils reactive, EOMI, Mucous membr. moist/pink Neck: Reports: supple, trachea midline, no JVD Lungs: Reports: Clear to auscultation, Normal respiratory effort Cardiovascular: Reports: Regular Rate, Regular Rhythm Abdomen: Reports: bowel sounds present, soft, no tenderness, no distension Back Exam: Reports: normal inspection Extremities: Reports: no edema, normal pulses Skin: Reports: warm, dry, intact Neurological: Reports: no new focal deficit Psy/Mental Status: Reports: alert, normal affect, normal mood *Q Meaningful Use (DIS) - VTE *Q VTE Criteria *Q: - Stroke *Q Stroke Criteria *Q: - AMI *Q AMI Criteria *Q: <Khang Shah - Last Filed: 10/03/16 20:03> Discharge Summary - Patient Summary/Data Consults: Consultations 09/26/16 14:50 PT Evaluation and Treatment [CONS] Routine 09/30/16 11:11 PT Evaluation and Treatment [CONS] Routine - Patient Data Vitals - Most Recent: Last Vital Signs Temp 36.2 C 10/01/16 08:00 Pulse 100 10/01/16 08:55 Resp 16 10/01/16 08:00 BP 131/68 10/01/16 08:55 Pulse Ox 95 10/01/16 08:00 Med Orders - Current: Current Medications Discontinued Medications Acetaminophen (Tylenol) 650 mg PO Q4H PRN PRN Reason: Pain (Mild 1-3)/fever Last Admin: 10/01/16 01:11 Dose: 650 mg Albuterol (Proventil Neb Soln) 2.5 mg NEB ONETIME ONE Stop: 09/26/16 17:36 Last Admin: 09/26/16 17:50 Dose: 2.5 mg Aspirin (Aspirin) 81 mg PO TuThSa JAZMIN Last Admin: 09/30/16 07:53 Dose: 81 mg Calcium Carbonate/Glycine (Tums) 1,000 mg PO DAILY ONE Stop: 09/29/16 07:22 Last Admin: 09/29/16 07:43 Dose: 1,000 mg Calcium Carbonate/Glycine (Tums) 1,000 mg PO ONETIME ONE Stop: 09/30/16 07:23 Last Admin: 09/30/16 07:49 Dose: 1,000 mg Calcium Carbonate/Glycine (Tums) 500 - 1,000 mg PO Q8H PRN PRN Reason: Indigestion Last Admin: 09/30/16 20:53 Dose: 1,000 mg Calcium Carbonate/Glycine (Tums) 1,000 mg PO ONETIME ONE Stop: 10/01/16 11:07 Last Admin: 10/01/16 12:19 Dose: 1,000 mg Calcium Gluconate (Calcium Gluconate) 1 gm IVPUSH ONETIME ONE Stop: 09/26/16 18:20 Last Admin: 09/26/16 18:35 Dose: 1 gm Calcium Gluconate (Calcium Gluconate) 1 gm IVPUSH ONETIME ONE Stop: 09/26/16 20:24 Last Admin: 09/26/16 20:47 Dose: 1 gm Calcium Gluconate (Calcium Gluconate) Confirm Administered Dose 1 gm .ROUTE .STK -MED ONE Stop: 09/26/16 20:41 Last Admin: 09/26/16 20:51 Dose: 1 gm Calcium Gluconate (Calcium Gluconate) 1 gm IVPUSH ONETIME ONE Stop: 09/26/16 23:29 Last Admin: 09/27/16 00:01 Dose: 1 gm Carvedilol (Coreg) 6.25 mg PO BID [facility] Last Admin: 09/28/16 20:40 Dose: 6.25 mg Carvedilol (Coreg) 3.125 mg PO BID [facility] Last Admin: 10/01/16 08:55 Dose: 3.125 mg Dextrose/Water (Dextrose 50% In Water) 50 ml IVPUSH ONETIME ONE Stop: 09/26/16 18:27 Last Admin: 09/26/16 18:49 Dose: 50 ml Diltiazem HCl (Diltiazem) 10 mg IVPUSH ONETIME ONE Stop: 09/28/16 10:43 Last Admin: 09/28/16 11:04 Dose: 10 mg Enoxaparin Sodium (Lovenox) 90 mg SUBCUT Q24H [facility] Last Admin: 09/26/16 17:44 Dose: 90 mg Fentanyl (Sublimaze) 25 mcg IVPUSH ONETIME ONE Stop: 09/26/16 12:24 Last Admin: 09/26/16 12:34 Dose: 25 mcg Fentanyl (Duragesic) 25 mcg TRDERM Q72H [facility] Last Admin: 09/26/16 13:53 Dose: 25 mcg Furosemide (Lasix) 40 mg IVPUSH NOW ONE Stop: 09/26/16 17:21 Last Admin: 09/30/16 07:33 Dose: Not Given Furosemide (Lasix) 40 mg IVPUSH NOW ONE Stop: 09/29/16 09:01 Furosemide (Lasix) 40 mg PO BID [facility] Last Admin: 09/30/16 20:15 Dose: 40 mg Furosemide (Lasix) 40 mg PO BIDDIURETIC [facility] Last Admin: 10/01/16 08:55 Dose: 40 mg Hydromorphone HCl (Dilaudid) 0.5 mg IM ONETIME ONE Stop: 09/26/16 12:23 Last Admin: 09/26/16 12:31 Dose: Not Given Sodium Chloride (Normal Saline) 1,000 mls @ 999 mls/hr IV STAT ONE Stop: 09/26/16 11:59 Last Admin: 09/26/16 11:16 Dose: 999 mls/hr Sodium Chloride (Normal Saline) 250 mls @ 999 mls/hr IV ASDIRECTED [facility] Last Admin: 09/26/16 17:42 Dose: 999 mls/hr Sodium Chloride (Normal Saline) 250 mls @ 999 mls/hr IV ASDIRECTED JAZMIN Stop: 09/26/16 19:46 Last Admin: 09/26/16 20:50 Dose: 999 mls/hr Heparin Sodium/Dextrose (Heparin 25,000 Units In D5w 500 Ml) 25,000 units in 500 mls @ 32.688 mls/hr IV TITRATE JAZMIN; 18 UNITS/KG/HR PRN Reason: Protocol Heparin Sodium/Dextrose (Heparin 25,000 Units In D5w 500 Ml) 25,000 units in 500 mls @ 32.688 mls/hr IV TITRATE JAZMIN; 18 UNITS/KG/HR PRN Reason: Protocol Sodium Chloride (Normal Saline) 250 mls @ 999 mls/hr IV ASDIRECTED JAZMIN Last Infusion: 09/26/16 21:16 Dose: Infused Heparin Sodium/Dextrose (Heparin 25,000 Units In D5w 500 Ml) Confirm Administered Dose 25,000 units in 500 mls @ as directed .ROUTE .STK-MED ONE Stop: 09/26/16 21:24 Last Admin: 09/26/16 22:41 Dose: Not Given Sodium Chloride (Normal Saline) 1,000 mls @ 100 mls/hr IV ASDIRECTED JAZMIN Last Infusion: 09/28/16 16:40 Dose: Infused Heparin Sodium/Dextrose (Heparin 25,000 Units In D5w 500 Ml) 25,000 units in 500 mls @ 33.552 mls/hr IV TITRATE JAZMIN; 18 UNITS/KG/HR PRN Reason: Protocol Last Titration: 09/28/16 08:15 Dose: 15 units/kg/hr, 29.28 mls/hr Sodium Chloride (Normal Saline) 250 mls @ 999 mls/hr IV .Bolus ONE Stop: 09/27/16 18:20 Last Admin: 09/27/16 18:25 Dose: 999 mls/hr Diltiazem HCl 100 mg/ Sodium (Chloride) 100 mls @ 5 mls/hr IV TITRATE JAZMIN; 5 MG /HR PRN Reason: Protocol Last Titration: 09/28/16 15:15 Dose: 0 mg/hr, 0 mls/hr Heparin Sodium (Porcine) 25, (000 units/ Dextrose/Water) 505 mls @ 35.26 mls/ hr IV TITRATE JAZMIN; 18 UNITS/KG/HR PRN Reason: Protocol Last Admin: 09/30/16 09:37 Dose: 13 units/kg/hr, 25.47 mls/hr Sodium Chloride (Normal Saline) 250 mls @ 500 mls/hr IV ASDIRECTED [facility] Last Admin: 09/28/16 22:58 Dose: 500 mls/hr Heparin Sodium/Dextrose (Heparin 25,000 Units In D5w 500 Ml) Confirm Administered Dose 25,000 units in 500 mls @ as directed .ROUTE .STK-MED ONE Stop: 10/01/16 06:12 Last Admin: 10/01/16 06:39 Dose: 13 units Insulin Human Regular (Novolin R) 20 unit IVPUSH ONETIME ONE PRN Reason: Protocol Stop: 09/26/16 18:26 Last Admin: 09/26/16 18:45 Dose: 20 units Ketorolac Tromethamine (Toradol) 30 mg IVPUSH ONETIME ONE Stop: 09/26/16 11:00 Last Admin: 09/26/16 11:13 Dose: 30 mg Levothyroxine Sodium (Synthroid) 100 mcg PO DAILY [facility] Levothyroxine Sodium (Synthroid) 100 mcg PO ACBREAKFAST [facility] Last Admin: 10/01/16 06:46 Dose: 100 mcg Morphine Sulfate (Morphine) 2 mg IVPUSH Q2H PRN PRN Reason: Pain (severe 7-10) Stop: 09/27/16 14:55 Last Admin: 09/27/16 02:20 Dose: 2 mg Ondansetron HCl (Zofran) 4 mg IVPUSH ONETIME ONE Stop: 09/26/16 12:23 Last Admin: 09/26/16 12:32 Dose: 4 mg Ondansetron HCl (Zofran Odt) 4 mg PO Q4H PRN PRN Reason: nausea, able to take PO Last Admin: 09/29/16 06:09 Dose: 4 mg Ondansetron HCl (Zofran) 4 mg IVPUSH ONETIME ONE Stop: 09/28/16 23:15 Last Admin: 09/28/16 23:20 Dose: 4 mg Oxycodone HCl (Oxycodone) 5 mg PO Q4H PRN PRN Reason: Pain (moderate 4-6) Last Admin: 09/30/16 15:06 Dose: 5 mg Potassium Chloride (Klor-Con M20) 20 meq PO BID JAZMIN Last Admin: 10/01/16 08:55 Dose: 20 meq Promethazine HCl (Phenergan) 25 mg PO ONETIME ONE Stop: 09/29/16 06:55 Last Admin: 09/29/16 07:42 Dose: 25 mg Rivaroxaban (Xarelto) 15 mg PO NOW ONE Stop: 10/01/16 12:03 Last Admin: 10/01/16 12:19 Dose: 15 mg Simethicone (Simethicone) 80 mg PO Q4H PRN PRN Reason: other Last Admin: 10/01/16 02:37 Dose: 80 mg Sodium Bicarbonate (Sodium Bicarbonate 8.4%) 50 meq IVPUSH ONETIME ONE Stop: 09/26/16 23:30 Last Admin: 09/27/16 00:04 Dose: 50 meq Sodium Chloride (Saline Flush) 10 ml FLUSH ASDIRECTED PRN PRN Reason: Keep Vein Open Sodium Chloride (Saline Flush) 2.5 ml FLUSH ASDIRECTED PRN PRN Reason: Keep Vein Open Sodium Polystyrene Sulfonate (Kayexalate) 15 gm PO Q6H [facility] Last Admin: 09/27/16 19:22 Dose: 15 gm Sodium Polystyrene Sulfonate (Kayexalate) 15 gm PO ONETIME ONE Stop: 09/26/16 23:30 Last Admin: 09/26/16 23:54 Dose: 15 gm *Q Meaningful Use (DIS) - VTE *Q VTE Criteria *Q: - Stroke *Q Stroke Criteria *Q: - AMI *Q AMI Criteria *Q: - Free Text/Narrative Note: I have examined the patient. I have discussed findings and treatment plan with resident. I agree with the assessment and plan outlined in the resident's note.
== END 2016-10-01 13:50 | disposition home health service (06) | DRG 299 ==
LOC: MW.ED 10:49 → MW.MS 13:56 → MW.ICU 18:51
PROVIDERS: ADMIT Internal Medicine; ATTEND Internal Medicine
DX: M54.41 Lumbago with sciatica, right side (principal); I82.411 Acute embolism and thrombosis of right femoral vein; N17.0 Acute kidney failure with tubular necrosis; I50.9 Heart failure, unspecified; I50.20 Unspecified systolic (congestive) heart failure; Z86.718 Personal history of other venous thrombosis and embolism; E87.5 Hyperkalemia; E86.0 Dehydration; I10 Essential (primary) hypertension; I48.91 Unspecified atrial fibrillation; M19.90 Unspecified osteoarthritis, unspecified site; E03.9 Hypothyroidism, unspecified; M54.9 Dorsalgia, unspecified; G89.29 Other chronic pain; Z87.891 Personal history of nicotine dependence; Z79.82 Long term (current) use of aspirin; Z79.899 Other long term (current) drug therapy; D72.829 Elevated white blood cell count, unspecified
CPT/HCPCS: 36415; 83605; 84484; 85025; 85610; 93005; 93971; 96361; 96374; 96375; 99285; A9270; J1885; J2405; J3010; J7040; 71010; 71010-26; 71020; 71020-26; 76775; 76775-26; 80048; 80053; 81001; 82570; 82962; 84132; 84300; 84443; 85730; 87070; 87086; 87205; 87804; 93306; 94664; 97161-GP; 97802; 99284; J0610; J1644; J1650; J1815-GY; J2270; J3490; J7030; J7050; J7060

== ENCOUNTER → 2016-10-07 | Outpatient (CLI) | payer MEDICARE, BC | LOC: MW.CHIM 08:00 | PROVIDERS: ATTEND Internal Medicine | DX: I82.411 Acute embolism and thrombosis of right femoral vein (principal); I82.431 Acute embolism and thrombosis of right popliteal vein; I50.9 Heart failure, unspecified; I10 Essential (primary) hypertension | CPT/HCPCS: 99204 ==

== ENCOUNTER → 2016-11-10 | Outpatient (CLI) | payer MEDICARE, BC | LOC: MW.CHIM 12:15 | PROVIDERS: ATTEND Internal Medicine | DX: I10 Essential (primary) hypertension (principal); E03.9 Hypothyroidism, unspecified; I50.9 Heart failure, unspecified; I82.509 Chronic embolism and thrombosis of unspecified deep veins of unspecified lower extremity; I51.9 Heart disease, unspecified; G25.0 Essential tremor; R29.898 Other symptoms and signs involving the musculoskeletal system | CPT/HCPCS: 36415; 80053; 83880; 84439; 84443; 85025; 99214 ==

== ENCOUNTER 2017-01-04 19:17 | Emergency (ER) | payer MEDICARE, BC ==
--- NOTE | 2017-01-04 19:28 | EDM.PDOC ---
ED HPI GENERAL MEDICAL PROBLEM - General Chief Complaint: Back Pain or Injury Stated Complaint: PAIN BACK/RT SIDE HIP Time Seen by Provider: 01/04/17 19:28 Source of Information: Reports: Patient - History of Present Illness INITIAL COMMENTS - FREE TEXT/NARRATIVE: HISTORY AND PHYSICAL: History of present illness: []Patient presents post fall, she fell in her home dropping to her knees on Thursday no head injury or loss of consciousness, she had been up and around without difficulty however upon awakening yesterday she had 6 out of 10 low back pain worsened with walking pain radiates to the right hip No fever nausea vomiting chills sweats no chest pain shortness breath headache dizziness or palpitation no bowel or urine symptoms Review of systems: As per history of present illness and below otherwise all systems reviewed and negative. Past medical history: As per history of present illness and as reviewed below otherwise noncontributory. Surgical history: As per history of present illness and as reviewed below otherwise noncontributory. Social history: No reported history of drug or alcohol abuse. Family history: As per history of present illness and as reviewed below otherwise noncontributory. Physical exam: HEENT: Atraumatic, normocephalic, pupils reactive, negative for conjunctival pallor or scleral icterus, mucous membranes moist, throat clear, neck supple, nontender, trachea midline. Lungs: Clear to auscultation, breath sounds equal bilaterally, chest nontender. Heart: S1S2, regular, negative for clicks, rubs, or JVD. Abdomen: Soft, nondistended, nontender. Negative for masses or hepatosplenomegaly. Negative for costovertebral tenderness. Pelvis: Stable nontender. Genitourinary: Deferred. Rectal: Deferred. Extremities: Atraumatic, negative for cords or calf pain. On the left right she does have some mild calf pain with a positive Homans sign Neurovascular unremarkable. Neuro: Awake, alert, oriented. Cranial nerves II through XII unremarkable. Cerebellum unremarkable. Motor and sensory unremarkable throughout. Exam nonfocal. Musculoskeletal tender over a paraspinous muscle and tender over right hip no bruising otherwise unremarkable exam Diagnostics: []Lab as below EKG Lumbar spine Pelvis with right hip Therapeutics: []Patient declines pain medication Tylenol as directed he at or ice which ever gains most benefit Impression: []Low back pain Right paraspinous muscle spasm Definitive disposition and diagnosis as appropriate pending reevaluation and review of above. Right Lower Back Pain Score (Numeric/FACES): 6 - Related Data Allergies Allergy/AdvReac Type Severity Reaction Status Date / Time NSAIDS (Non-Steroidal Allergy Other Verified 01/04/17 19:44 Anti-Inflamma Home Meds: Home Meds Aspirin 1 tab PO ASDIRECTED 09/21/16 [History] Calcium Carbonate [Calcium] 1 tab PO BID 09/21/16 [History] Potassium Chloride 20 meq PO BID 09/21/16 [History] Calcitonin ([place]) [Miacalcin Nasal [place]] 1 spray FERNANDO Q2D 09/26/16 [History] Cyanocobalamin (Vitamin B-12) [Cyanocobalamin Injection] 1,000 mcg IM ASDIRECTED 09/26/16 [History] Enalapril [Vasotec] 2.5 mg PO BID 09/26/16 [History] Levothyroxine [Synthroid] 100 mcg PO DAILY 09/26/16 [History] Primidone 75 mg PO BEDTIME 09/26/16 [History] Furosemide 40 mg PO BID 09/29/16 [History] Carvedilol [Coreg] 3.125 mg PO BID #28 tablet 10/01/16 [Rx] Rivaroxaban [Xarelto] 15 mg PO BID #32 tablet 10/01/16 [Rx] Past Medical History HEENT History: Reports: Cataract Cardiovascular History: Reports: Blood Clots/VTE/DVT, Heart Failure Respiratory History: Reports: PE Gastrointestinal History: Reports: None Genitourinary History: Reports: None 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 Neurological History: Reports: None Psychiatric History: Reports: None Endocrine/Metabolic History: Reports: Hypothyroidism Hematologic History: Reports: None Immunologic History: Reports: None Dermatologic History: Reports: None - Past Surgical History HEENT Surgical History: Reports: Cataract Surgery Musculoskeletal Surgical History: Reports: Hip Replacement, Knee Replacement Social & Family History - Family History Family Medical History: Noncontributory - Tobacco Use Smoking Status *Q: Former Smoker Second Hand Smoke Exposure: No - Caffeine Use Caffeine Use: Reports: Coffee, Soda, Tea - Recreational Drug Use Recreational Drug Use: No ED ROS GENERAL - Review of Systems Review Of Systems: ROS reveals no pertinent complaints other than HPI. ED EXAM, GENERAL - Physical Exam Exam: See Below Course - Vital Signs Last Recorded V/S: Last Vital Signs Temp 36.4 C 01/04/17 19:22 Pulse 90 01/04/17 19:22 Resp 22 H 01/04/17 19:22 BP 113/71 01/04/17 19:22 Pulse Ox 97 01/04/17 19:22 - Orders/Labs/Meds Orders: Active Orders 24 hr Category Date Time Status EKG Documentation Completion [RC] STAT Care 01/04/17 19:33 Active Hip Min 2V or 3V Rt [CR] Stat Exams 01/04/17 19:33 Taken Lumbar Spine 2 or 3V [CR] Stat Exams 01/04/17 19:33 Taken Venous Doppler Lwr Ext Rt [US] Stat Exams 01/04/17 19:44 Taken Labs: Laboratory Tests 01/04/17 01/04/17 01/04/17 Range/Units 19:30 19:58 19:58 WBC 6.44 (4.0-11.0) K/uL RBC 4.12 L (4.30-5.90) M/uL Hgb 12.5 (12.0-16.0) g/dL Hct 38.9 (36.0-46.0) % MCV 94.4 (80.0-98.0) fL MCH 30.3 (27.0-32.0) pg MCHC 32.1 (31.0-37.0) g/dL RDW Std Deviation 47.8 (28.0-62.0) fl RDW Coeff of Sebastien 14 (11.0-15.0) % Plt Count 267 (150-400) K/uL MPV 9.40 (7.40-12.00) fL Neut % (Auto) 52.7 (48.0-80.0) % Lymph % (Auto) 39.1 (16.0-40.0) % [place] % (Auto) 6.7 (0.0-15.0) % Eos % (Auto) 0.9 (0.0-7.0) % Baso % (Auto) 0.6 (0.0-1.5) % Neut # (Auto) 3.4 (1.4-5.7) K/uL Lymph # (Auto) 2.5 H (0.6-2.4) K/uL [place] # (Auto) 0.4 (0.0-0.8) K/uL Eos # (Auto) 0.1 (0.0-0.7) K/uL Baso # (Auto) 0.0 (0.0-0.1) K/uL Nucleated RBC % 0.0 /100WBC Nucleated RBCs # 0 K/uL INR 1.06 (0.86-1.11) Sodium (136-146) mmol/L Potassium (3.5-5.1) mmol/L Chloride (98-110) mmol/L Carbon Dioxide (21-31) mmol/L BUN (6.0-23.0) mg/dL Creatinine (0.6-1.5) mg/dL Est Cr Clr Drug Dosing mL/min Estimated GFR (MDRD) ml/min Glucose (60-110) mg/dL Calcium (8.8-10.8) mg/dL Total Bilirubin (0.1-1.5) mg/dL AST (5-40) IU/L ALT (8-54) IU/L Alkaline Phosphatase (40-150) Troponin I (0.0-0.29) NG/ML Total Protein (6.0-8.0) g/dL Albumin (3.4-4.8) g/dL Globulin (2.0-3.5) g/dL Albumin/Globulin Ratio (1.3-2.8) Urine Color YELLOW Urine Appearance CLEAR Urine pH 6.0 (5.0-8.0) Ur Specific [place] 1.020 (1.001-1.035) Urine Protein NEGATIVE (NEGATIVE) mg/dL Urine Glucose (UA) NEGATIVE (NEGATIVE) mg/dL Urine Ketones TRACE H (NEGATIVE) mg/dL Urine Occult Blood NEGATIVE (NEGATIVE) Urine Nitrite NEGATIVE (NEGATIVE) Urine Bilirubin NEGATIVE (NEGATIVE) Urine Urobilinogen 0.2 (<2.0) EU/dL Ur Leukocyte Esterase NEGATIVE (NEGATIVE) Urine RBC 0-2 (0-2/HPF) Urine WBC 0-4 (0-5/HPF) Ur Epithelial Cells OCCASIONAL (NONE-FEW) Urine Bacteria FEW (NEGATIVE) 01/04/17 01/04/17 Range/Units 19:58 19:58 WBC (4.0-11.0) K/uL RBC (4.30-5.90) M/uL Hgb (12.0-16.0) g/dL Hct (36.0-46.0) % MCV (80.0-98.0) fL MCH (27.0-32.0) pg MCHC (31.0-37.0) g/dL RDW Std Deviation (28.0-62.0) fl RDW Coeff of Sebastien (11.0-15.0) % Plt Count (150-400) K/uL MPV (7.40-12.00) fL Neut % (Auto) (48.0-80.0) % Lymph % (Auto) (16.0-40.0) % [place] % (Auto) (0.0-15.0) % Eos % (Auto) (0.0-7.0) % Baso % (Auto) (0.0-1.5) % Neut # (Auto) (1.4-5.7) K/uL Lymph # (Auto) (0.6-2.4) K/uL [place] # (Auto) (0.0-0.8) K/uL Eos # (Auto) (0.0-0.7) K/uL Baso # (Auto) (0.0-0.1) K/uL Nucleated RBC % /100WBC Nucleated RBCs # K/uL INR (0.86-1.11) Sodium 142 (136-146) mmol/L Potassium 4.2 (3.5-5.1) mmol/L Chloride 106 (98-110) mmol/L Carbon Dioxide 24 (21-31) mmol/L BUN 14 (6.0-23.0) mg/dL Creatinine 1.0 (0.6-1.5) mg/dL Est Cr Clr Drug Dosing 1.85 mL/min Estimated GFR (MDRD) 53.6 ml/min Glucose 104 (60-110) mg/dL Calcium 8.6 L (8.8-10.8) mg/dL Total Bilirubin 0.2 (0.1-1.5) mg/dL AST 17 (5-40) IU/L ALT 11 (8-54) IU/L Alkaline Phosphatase 64 (40-150) Troponin I < 0.10 (0.0-0.29) NG/ML Total Protein 7.2 (6.0-8.0) g/dL Albumin 4.2 (3.4-4.8) g/dL Globulin 3.0 (2.0-3.5) g/dL Albumin/Globulin Ratio 1.4 (1.3-2.8) Urine Color Urine Appearance Urine pH (5.0-8.0) Ur Specific [place] (1.001-1.035) Urine Protein (NEGATIVE) mg/dL Urine Glucose (UA) (NEGATIVE) mg/dL Urine Ketones (NEGATIVE) mg/dL Urine Occult Blood (NEGATIVE) Urine Nitrite (NEGATIVE) Urine Bilirubin (NEGATIVE) Urine Urobilinogen (<2.0) EU/dL Ur Leukocyte Esterase (NEGATIVE) Urine RBC (0-2/HPF) Urine WBC (0-5/HPF) Ur Epithelial Cells (NONE-FEW) Urine Bacteria (NEGATIVE) Departure - Departure Time of Disposition: 21:14 Disposition: Home, Self-Care 01 Condition: Good Clinical Impression: Muscle spasm - Discharge Information Forms: ED Department Discharge Additional Instructions: Tylenol 650 mg 3 times daily Heat or ice in 20 minute intervals whichever gains most benefit Return if symptoms persist or worsen Follow-up with primary care in 2 weeks sooner as needed The following information is given to patients seen in the emergency department who are being discharged to home. This information is to outline your options for follow-up care. We provide all patients seen in our emergency department with a follow-up referral. The need for follow-up, as well as the timing and circumstances, are variable depending upon the specifics of your emergency department visit. If you don't have a primary care physician on staff, we will provide you with a referral. We always advise you to contact your personal physician following an emergency department visit to inform them of the circumstance of the visit and for follow-up with them and/or the need for any referrals to a consulting specialist. The emergency department will also refer you to a specialist when appropriate. This referral assures that you have the opportunity for follow-up care with a specialist. All of these measure are taken in an effort to provide you with optimal care, which includes your follow-up. Under all circumstances we always encourage you to contact your private physician who remains a resource for coordinating your care. When calling for follow-up care, please make the office aware that this follow-up is from your recent emergency room visit. If for any reason you are refused follow-up, please contact the [facility] emergency department at and asked to speak to the emergency department charge nurse. - My Orders Last 24 Hours: My Active Orders 01/04/17 19:33 EKG Documentation Completion [RC] STAT Hip Min 2V or 3V Rt [CR] Stat Lumbar Spine 2 or 3V [CR] Stat 01/04/17 19:44 Venous Doppler Lwr Ext Rt [US] Stat - Assessment/Plan Last 24 Hours: My Active Orders 01/04/17 19:33 EKG Documentation Completion [RC] STAT Hip Min 2V or 3V Rt [CR] Stat Lumbar Spine 2 or 3V [CR] Stat 01/04/17 19:44 Venous Doppler Lwr Ext Rt [US] Stat
[2017-01-04 21:24] VITALS: BP 140/69
--- NOTE | 2017-01-05 13:29 | CR ---
EXAM DATE: 01/04/17 PATIENT'S AGE: 76 Patient: TOÑA TOLEDO Facility: [place], [place] Site . Site : 1940 Study: XRay Hip Right [id number]/25/2017 8:27:19 PM Ordering Physician: Melissa Carmona Final Report: INDICATION: FALL ON WED, PAIN IN LOWER BACK AND HIP FINDINGS: Two views of the right hip show no evidence of acute fracture or dislocation. No other bony or soft tissue abnormalities identified. Dictated by Rivera Watson MD @ 01/04/2017 8:38:41 PM Dictated by: Rivera Watson MD @ 01/04/2017 20:38:53 (Electronic Signature) Report Signed by Proxy. [facility]ITAL[facility]ob[facility]
--- NOTE | 2017-01-05 13:30 | CR ---
EXAM DATE: 01/04/17 PATIENT'S AGE: 76 Patient: TOÑA TOLEDO Facility: [place], [place] Site . Site : 1940 Study: XRay Spine Lumbar [id number]/25/2017 8:29:54 PM Ordering Physician: Melissa Carmona Final Report: INDICATION: Fell 4 days ago now with lower back and hip pain TECHNIQUE: Lumbar spine 3 view. COMPARISON: September 21, 2016 FINDINGS: Bones: Alignment is normal. No fractures or significant bone lesions. Joints: Moderate, stable multilevel degenerative disc and facet changes. Stable. 0.9 cm anterolisthesis of L5 on S1. Soft tissues: IVC filter projects over the right side of the L4 vertebrae. Left hip arthroplasty is partially visualized. IMPRESSION: No acute abnormality. The study is stable compared to September 21, 2016 Dictated by Amy Uribe MD @ Jan 04 2017 8:41PM (Electronic Signature) Report Signed by Proxy. KIM
--- NOTE | 2017-01-05 13:31 | US ---
EXAM DATE: 01/04/17 PATIENT'S AGE: 76 Patient: TOÑA TOLEDO Facility: [place], [place] Site . Site : 1940 Study: US Extremity Right [id number]/25/2017 8:56:12 PM Ordering Physician: Melissa Carmona Final Report: INDICATION: Leg pain and swelling. History of DVT. TECHNIQUE: Ultrasound venous duplex lower right extremity. Compression venous exam was performed using ahuja-scale, color Doppler, and spectral Doppler imaging. COMPARISON: DVT ultrasound dated 26 September 2016. FINDINGS: Sonographic imaging demonstrates the right common femoral, deep femoral, superficial femoral, popliteal, posterior tibial and greater saphenous and the contralateral left common femoral veins to be fully compressible with normal color Doppler blood flow. IMPRESSION: No right lower extremity DVT identified. Dictated by Rivera Watson MD @ 01/04/2017 9:04:08 PM Dictated by: Rivera Watson MD @ 01/04/2017 21:04:21 (Electronic Signature) Report Signed by Proxy. [facility]
== END 2017-01-04 21:24 | disposition home or self-care (01) ==
LOC: MW.ED 19:17
DX: M62.830 Muscle spasm of back (principal); I50.9 Heart failure, unspecified; E03.9 Hypothyroidism, unspecified; Z88.8 Allergy status to other drugs, medicaments and biological substances; Z79.82 Long term (current) use of aspirin; Z79.899 Other long term (current) drug therapy; Z98.49 Cataract extraction status, unspecified eye; Z96.649 Presence of unspecified artificial hip joint; Z96.659 Presence of unspecified artificial knee joint; Z87.891 Personal history of nicotine dependence
CPT/HCPCS: 36415; 72100; 72100-26; 73502-26-RT; 73502-RT; 80053; 81001; 84484; 85025; 85610; 93005; 93971-26-RT; 93971-RT; 99283; 99284-25

== ENCOUNTER 2017-10-19 17:40 | Emergency (ER) | payer MEDICARE, BC ==
--- NOTE | 2017-10-19 18:14 | EDM.PDOC ---
ED HPI GENERAL MEDICAL PROBLEM - General Chief Complaint: Back Pain or Injury Stated Complaint: BACK PAIN Time Seen by Provider: 10/19/17 17:59 Source of Information: Reports: Patient History Limitations: Reports: No Limitations - History of Present Illness INITIAL COMMENTS - FREE TEXT/NARRATIVE: HISTORY AND PHYSICAL: History of present illness: Patient is a 76-year-old female who presents to the emergency room with complaints of mid back pain. States she tried to get into the clinic this afternoon as she felt that the back pain is related to her arthritis. Due to the patient's extensive history of low back pain" which ultimately ended up being a PE/DVT they suggested she come to the emergency room for evaluation. Currently on Coumadin and has a venous filter. States the pain is worse when standing up. Eyes any fever, chills, chest pain, shortness of breath. She denies any abdominal pain, nausea, vomiting, diarrhea or constipation. She denies any recent injury, trauma or falls. Denies any numbness or tingling to the lower extremities. September 2016: Patient had a DVT of the right common femoral vein and acute kidney injury. Unable to use NSAIDs due to the HEIDI Patient was on several toe but states that this was not affordable to her son the touch her back to Coumadin. Does follow closely with the Coumadin clinic and she is currently sub-therapeutic (has been adjusting accordingly) per her Dr 's recommendations. Review of systems: As per history of present illness and below otherwise all systems reviewed and negative. Past medical history: As per history of present illness and as reviewed below otherwise noncontributory. Surgical history: As per history of present illness and as reviewed below otherwise noncontributory. Social history: No reported history of drug or alcohol abuse. Family history: As per history of present illness and as reviewed below otherwise noncontributory. Physical exam: General: Well-developed and well-nourished 76-year-old female. Alert and oriented. Nontoxic appearing and in no acute distress. HEENT: Atraumatic, normocephalic, pupils equal and reactive bilaterally, negative for conjunctival pallor or scleral icterus, mucous membranes moist, throat clear, neck supple, nontender, trachea midline. No drooling or trismus noted. No meningeal signs Lungs: Clear to auscultation, breath sounds equal bilaterally, chest nontender. Heart: S1S2, regular rate and rhythm without overt murmur Abdomen: Soft, nondistended, nontender. Negative for masses or hepatosplenomegaly. Negative for costovertebral tenderness. Pelvis: Stable nontender. Genitourinary: Deferred. Rectal: Deferred. C-spine/Back: No pinpoint vertebral tenderness upon palpation. No crepitus, step -offs or obvious deformities. Patient is ambulatory with her cane (normal patient variance). Skin: Intact, warm, dry. No lesions or rashes noted. Extremities: Atraumatic, negative for cords or calf pain. Neurovascular unremarkable. Neuro: Awake, alert, oriented. Cranial nerves II through XII unremarkable. Cerebellum unremarkable. Motor and sensory unremarkable throughout. Exam nonfocal. Notes: Discussed with patient that the likelihood of her having a PE is very low due to her being on anticoagulants and having a venafilter. She would still like the CTA completed, with her medical history I feel its warranted. She has no lower extremity swelling, discoloration or decreased sensation. Pedal pulses bilaterally. I do not feel she needs any venous doppler u/s. CT shows no acute PE or other abnormalities. 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 There does appear to be some degenerative disc disease in the bilateral shoulders. Patient made aware of diagnostic findings. She states that she feels this is her arthritis. To take NSAIDs due to her previous acute kidney injury. Discussed pain management options. She states she does not want a narcotic as this does cause drowsiness. Reports that Tylenol was not alleviating her discomfort. She has not tried tramadol previous but would like to try that as an option. Lino to follow up with her primary care provider in the next couple days. She voices understanding and is agreeable to plan of care. She denies any further questions at this time. Diagnostics: CBC, CMP, INR, CTA Therapeutics: [] Impression: Degenerative disc disease Back Pain Plan: 1. Today's CT and lab work was within normal limits. PT/INR 1.68 2. You may use Tylenol as needed for pain management. Tramadol has been prescribed for moderate to severe pain. This medication may cause some drowsiness so do not take it while driving or needing to be functioning outside of the house. 3. Follow-up with your primary caregiver in the next couple days. Return to the ED as needed and as discussed. Definitive disposition and diagnosis as appropriate pending reevaluation and review of above. Duration: Day(s): Location: Reports: Back left lower back Pain Score (Numeric/FACES): 8 - Related Data Allergies Allergy/AdvReac Type Severity Reaction Status Date / Time NSAIDS (Non-Steroidal Allergy Other Verified 10/19/17 17:56 Anti-Inflamma Home Meds: Home Meds ALPRAZolam [Xanax XR] 1 mg PO ASDIRECTED PRN 10/19/17 [History] Calcium Carbonate [Calcium] 500 mg PO DAILY 10/19/17 [History] Carvedilol 3.125 mg PO BID 10/19/17 [History] Cholecalciferol (Vitamin D3) [Vitamin D] 1,000 unit PO DAILY 10/19/17 [History] Cyanocobalamin (Vitamin B-12) [B-12 Compliance] 1,000 mcg PO ASDIRECTED [History] Enalapril [Vasotec] 2.5 mg PO BID 10/19/17 [History] Furosemide 40 mg PO BID 10/19/17 [History] Levothyroxine [Synthroid] 1,000 mcg PO DAILY 10/19/17 [History] Omeprazole 20 mg PO DAILY 10/19/17 [History] Potassium Bicarbonate/Cit Ac [Potassium 25 Meq Tablet Eff] 20 meq PO DAILY 10/19 [History] Primidone 50 mg PO DAILY 10/19/17 [History] Warfarin [Coumadin] 5 mg PO DAILY 10/19/17 [History] Past Medical History HEENT History: Reports: Cataract Cardiovascular History: Reports: Blood Clots/VTE/DVT, Heart Failure Respiratory History: Reports: PE Gastrointestinal History: Reports: None Genitourinary History: Reports: None 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 Neurological History: Reports: None Psychiatric History: Reports: None Endocrine/Metabolic History: Reports: Hypothyroidism Hematologic History: Reports: Other (See Below) Other Hematologic History: blood clot Immunologic History: Reports: None Oncologic (Cancer) History: Reports: None Dermatologic History: Reports: None - Infectious Disease History Infectious Disease History: Reports: Chicken Pox, Measles, Mumps - Past Surgical History Head Surgeries/Procedures: Reports: None HEENT Surgical History: Reports: Cataract Surgery Musculoskeletal Surgical History: Reports: Hip Replacement, Knee Replacement Oncologic Surgical History: Reports: None Social & Family History - Family History Family Medical History: Noncontributory - Tobacco Use Smoking Status *Q: Never Smoker Second Hand Smoke Exposure: No - Caffeine Use Caffeine Use: Reports: None - Recreational Drug Use Recreational Drug Use: No ED ROS GENERAL - Review of Systems Review Of Systems: ROS reveals no pertinent complaints other than HPI. ED EXAM, UPPER BACK/NECK PAIN - Physical Exam Exam: See Below (See dictation) Course - Vital Signs Last Recorded V/S: Last Vital Signs Temp 97.5 F 10/19/17 20:56 Pulse 72 10/19/17 20:56 Resp 18 10/19/17 20:56 BP 114/59 L 10/19/17 20:56 Pulse Ox 97 10/19/17 20:56 - Orders/Labs/Meds Orders: Active Orders 24 hr Category Date Time Status Ang Chest [CT] Stat Exams 10/19/17 18:00 Taken Labs: Laboratory Tests 10/19/17 10/19/17 10/19/17 Range/Units 18:25 18:25 18:25 WBC 5.15 (4.0-11.0) K/uL RBC 3.83 L (4.30-5.90) M/uL Hgb 11.5 L (12.0-16.0) g/dL Hct 36.0 (36.0-46.0) % MCV 94.0 (80.0-98.0) fL MCH 30.0 (27.0-32.0) pg MCHC 31.9 (31.0-37.0) g/dL RDW Std Deviation 48.8 (28.0-62.0) fl RDW Coeff of Sebastien 14 (11.0-15.0) % Plt Count 261 (150-400) K/uL MPV 8.70 (7.40-12.00) fL Neut % (Auto) 55.1 (48.0-80.0) % Lymph % (Auto) 34.2 (16.0-40.0) % [place] % (Auto) 8.9 (0.0-15.0) % Eos % (Auto) 1.0 (0.0-7.0) % Baso % (Auto) 0.8 (0.0-1.5) % Neut # (Auto) 2.8 (1.4-5.7) K/uL Lymph # (Auto) 1.8 (0.6-2.4) K/uL [place] # (Auto) 0.5 (0.0-0.8) K/uL Eos # (Auto) 0.1 (0.0-0.7) K/uL Baso # (Auto) 0.0 (0.0-0.1) K/uL Nucleated RBC % 0.0 /100WBC Nucleated RBCs # 0 K/uL INR 1.68 Sodium 141 (136-145) mmol/L Potassium 4.3 (3.5-5.1) mmol/L Chloride 103 (98-107) mmol/L Carbon Dioxide 29.3 (21.0-32.0) mmol/L BUN 11 (7.0-18.0) mg/dL Creatinine 0.9 (0.6-1.0) mg/dL Est Cr Clr Drug Dosing TNP Estimated GFR (MDRD) > 60.0 ml/min Glucose 97 (74-106) mg/dL Calcium 8.8 (8.5-10.1) mg/dL Total Bilirubin 0.2 (0.2-1.0) mg/dL AST 15 (15-37) IU/L ALT 16 (14-63) IU/L Alkaline Phosphatase 52 (46-116) U/L Total Protein 6.8 (6.4-8.2) g/dL Albumin 3.5 (3.4-5.0) g/dL Globulin 3.3 (2.0-3.5) g/dL Albumin/Globulin Ratio 1.1 L (1.3-2.8) Meds: Medications Discontinued Medications Generic Name Dose Route Start Last Admin Trade Name Carrollq PRN Reason Stop Dose Admin Iopamidol 100 ml 10/19/17 20:19 10/19/17 20:20 Isovue-370 (76%) IVPUSH 10/19/17 20:20 75 ml ONETIME STA Administration Tramadol HCl 50 mg 10/19/17 20:56 Ultram PO 10/19/17 20:57 ONETIME ONE Departure - Departure Time of Disposition: 20:59 Disposition: Home, Self-Care 01 Clinical Impression: Back pain Qualifiers: Back pain location: thoracic back pain Chronicity: chronic Back pain laterality : midline Qualified Code(s): M54.6 - Pain in thoracic spine; G89.29 - Other chronic pain Degenerative disc disease Qualifiers: Spinal region: thoracic Qualified Code(s): M51.34 - Other intervertebral disc degeneration, thoracic region - Discharge Information Instructions: Back Pain, Adult, [id number], Degenerative Disk Disease Referrals: Kp Garcia MD [Primary Care Provider] - Forms: ED Department Discharge Additional Instructions: The following information is given to patients seen in the emergency department who are being discharged to home. This information is to outline your options for follow-up care. We provide all patients seen in our emergency department with a follow-up referral. The need for follow-up, as well as the timing and circumstances, are variable depending upon the specifics of your emergency department visit. If you don't have a primary care physician on staff, we will provide you with a referral. We always advise you to contact your personal physician following an emergency department visit to inform them of the circumstance of the visit and for follow-up with them and/or the need for any referrals to a consulting specialist. The emergency department will also refer you to a specialist when appropriate. This referral assures that you have the opportunity for follow-up care with a specialist. All of these measure are taken in an effort to provide you with optimal care, which includes your follow-up. Under all circumstances we always encourage you to contact your private physician who remains a resource for coordinating your care. When calling for follow-up care, please make the office aware that this follow-up is from your recent emergency room visit. If for any reason you are refused follow-up, please contact the [facility] Emergency Department at and asked to speak to the emergency department charge nurse. [facility] [address] [place] [id number] and lab work was within normal limits. PT/INR 1.68 2. You may use Tylenol as needed for pain management. Tramadol has been prescribed for moderate to severe pain. This medication may cause some drowsiness so do not take it while driving or needing to be functioning outside of the house. 3. Follow-up with your primary caregiver in the next couple days. Return to the ED as needed and as discussed. - My Orders Last 24 Hours: My Active Orders 10/19/17 18:00 Ang Chest [CT] Stat - Assessment/Plan Last 24 Hours: My Active Orders 10/19/17 18:00 Ang Chest [CT] Stat
[2017-10-19 19:08] LABS: CHLORIDE,CL 103 mmol/L (98-107); SODIUM,NA 141 mmol/L (136-145)
[2017-10-19] MEDS ORDERED: Iopamidol 755 Mg/ML 100 ML Bottle IVPUSH STA (20:19)
[2017-10-19 20:56] VITALS: BP 114/59
[2017-10-19] MEDS ORDERED: traMADol 50 MG Tab PO ONE (20:56)
--- NOTE | 2017-10-20 10:17 | CT ---
EXAM DATE: 10/19/17 PATIENT'S AGE: 76 Patient: TOÑA TOLEDO Facility: [place], [place] Site . Site : [id number] Study: CT Chest Angio [id number]/[id number] 8:22:35 PM Ordering Physician: Doctor Hardy Final Report: INDICATION: Back pain. CT CHEST WITH CONTRAST TECHNIQUE: Multidetector CT imaging was performed through the chest following intravenous contrast administration using 75 mL Isovue 370. Coronal and sagittal reconstructions were generated. COMPARISON: 09/08/[address] FINDINGS: Lungs and airways: No significant change in bibasilar lung stranding consistent with mild atelectasis or scarring. No acute or confluent pulmonary infiltrates. Central airways are patent. No hilar lymphadenopathy. Pleura and pleural spaces: No pleural effusions or pneumothorax. Heart and mediastinum: Normal heart size. No significant pericardial effusion. No mediastinal lymphadenopathy. Vascular structures: No new filling defects in the pulmonary arterial tree suggestive of acute pulmonary emboli. Unchanged very small band like filling defect in a left lower lobe pulmonary artery branch on image 314 of series 501 consistent with sequela of old pulmonary embolism. Normal caliber aorta without evidence of dissection. Chest wall and axillae: No mass or axillary lymphadenopathy. Osseous structures: Mild multilevel spondylosis. Bilateral shoulder DJD changes. No acute fractures identified. Upper abdomen: Unchanged calcification along the right diaphragm. Gastric postoperative changes, as before. Stable left adrenal thickening. IMPRESSION: 1. No acute pulmonary emboli or other acute intrathoracic abnormality identified. 2. 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 3. Nonacute additional findings as detailed above. WANDA LYLE MD [employer] Dictated by Aman Lyle MD @ 10/19/2017 8:44:24 PM Dictated by: Aman Lyle MD @ 10/19/2017 20:46:08 (Electronic Signature) Report Signed by Proxy. [facility]ITAL[facility]ob[facility]
== END 2017-10-19 21:15 | disposition home or self-care (01) ==
LOC: MW.ED 17:40
DX: M51.34 Other intervertebral disc degeneration, thoracic region (principal); Z79.899 Other long term (current) drug therapy; Z88.8 Allergy status to other drugs, medicaments and biological substances; Z79.01 Long term (current) use of anticoagulants
CPT/HCPCS: 36415; 71275; 80053; 85025; 85610; 99284; A9270; Q9967

== ENCOUNTER 2019-08-29 17:29 | Inpatient (IN) | payer MEDICARE, BC ==
--- NOTE | 2019-08-29 18:03 | EDM.PDOC ---
ED HPI GENERAL MEDICAL PROBLEM - General Chief Complaint: Trauma Stated Complaint: EMS Time Seen by Provider: 08/29/19 17:38 - History of Present Illness INITIAL COMMENTS - FREE TEXT/NARRATIVE: At around 1130 last night, she lost her balance and fell when she got out of bed to go use the bathroom. She says she does not think she struck her head and she does not have a headache. However, she was unable to get off the floor. She eventually crawled from the room where she fell into another room, where she was going to try to use something in the road to help her self get up. However, she was not able to get off the floor. Patient's daughter states that she called the patient today and with the patient did not answer, she went to visit the patient. She found the patient in her mud room.thinks patient was on the floor of the room where she fell and then on the floor in her mud room from around 1130 last night until around a quarter to 5 today. Patient denies that she had chest pain, palpitations, or syncope. Patient's daughter says the patient gets dizzy spells from time to time, and she thinks the patient might of gotten dizzy before she fell down. There was no speech slurring or facial droop. bilateral knee Pain Score (Numeric/FACES): 8 - Related Data Allergies Allergy/AdvReac Type Severity Reaction Status Date / Time NSAIDS (Non-Steroidal Allergy Other Verified 08/29/19 17:42 Anti-Inflamma Home Meds: Home Meds ALPRAZolam [Xanax XR] 1 mg PO ASDIRECTED PRN 10/19/17 [History] Calcium Carbonate [Calcium] 600 mg PO BID 10/19/17 [History] Cholecalciferol (Vitamin D3) [Vitamin D] 1,000 unit PO DAILY 10/19/17 [History] Enalapril [Vasotec] 2.5 mg PO BID 10/19/17 [History] Furosemide 40 mg PO BID 10/19/17 [History] Levothyroxine [Synthroid] 1,000 mcg PO DAILY 10/19/17 [History] Potassium Bicarbonate/Cit Ac [Potassium 25 Meq Tablet Eff] 20 meq PO DAILY 10/19 [History] Primidone 50 mg PO BEDTIME 10/19/17 [History] Warfarin [Coumadin] 7.5 mg PO DAILY 10/19/17 [History] carvediloL [Carvedilol] 3.125 mg PO BID 10/19/17 [History] Cyclobenzaprine [Flexeril] 1 tab PO BID 04/27/18 [History] Past Medical History HEENT History: Reports: Cataract Cardiovascular History: Reports: Blood Clots/VTE/DVT, Heart Failure Respiratory History: Reports: PE Gastrointestinal History: Reports: None Genitourinary History: Reports: None 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 Neurological History: Reports: None Psychiatric History: Reports: None Endocrine/Metabolic History: Reports: Hypothyroidism Hematologic History: Reports: Other (See Below) Other Hematologic History: blood clot Immunologic History: Reports: None Oncologic (Cancer) History: Reports: None Dermatologic History: Reports: None - Infectious Disease History Infectious Disease History: Reports: Chicken Pox, Measles, Mumps - Past Surgical History Head Surgeries/Procedures: Reports: None HEENT Surgical History: Reports: Cataract Surgery Musculoskeletal Surgical History: Reports: Hip Replacement, Knee Replacement Oncologic Surgical History: Reports: None Social & Family History - Family History Family Medical History: Noncontributory - Caffeine Use Caffeine Use: Reports: None Review of Systems - Review of Systems Review Of Systems: See Below Constitutional: Denies: Chills, Fever Ears: Denies: Dizziness Respiratory: Denies: Shortness of Breath, Cough Cardiovascular: Denies: Chest Pain, Lightheadedness, Palpitations, Syncope GI/Abdominal: Denies: Diarrhea, Vomiting Skin: Denies: Bruising Neurological: Denies: Confusion, Headache, Numbness, Seizure, Syncope ED EXAM, GENERAL - Physical Exam Exam: See Below Free Text/Narrative:: general: alert, well appearing, no acute distress HEENT: Atraumatic, normocephalic, PER 2 mm bilat, negative for conjunctival pallor or scleral icterus, mucous membranes moist, throat clear, handling oral secretions well. Neck/back: nontender, no crepitus, step off, or deformity. Trachea midline. Lungs: Clear to auscultation, breath sounds equal bilaterally, chest nontender. Heart: S1S2, regular, negative for clicks, rubs, or JVD. Abdomen: Soft, nondistended, nontender. Negative for masses or hepatosplenomegaly. Pelvis: stable, nontender, tolerates passive ROM of both hips Skin: warm, dry, good turgor. No skin tears, lacerations, ecchymoses. Musculoskeletal: soft compartments. No joint swelling, effusion. Extremities: Neurovascular unremarkable. No point tenderness over either knee. No swelling, deformity in extremities. Neuro: Awake, alert, oriented. Decr hearing. No aphasia, dysarthria, facial droop, speech slurring. Resting tremor of head. Motor and sensory unremarkable throughout. Exam nonfocal. Course - Vital Signs Text/Narrative:: Cbc: Leukocytosis White count 14.45; mild anemia hemoglobin 11.5; otherwise unremarkable Cmp: elevated BUN/Cr (25/2.5), hypergly (glu 132) Note: Cr was 1.0 on 08/18/19 CPK: 566 (mild elev) Coags: nl Head CT: no acute bleed Rt knee: no acute fx; rt knee prosthesis in place Left knee: no acute fx; left knee prosthesis in place AP pelvis: no acute fx; left hip prosthesis is in place Ek bpm atrial fibrillation normal axis normal QRS and prolonged QTC; no acute ST changes MDM Patient appears to be experiencing acute kidney injury; she probably became dehydrated from remaining on the floor for such a long period of time. I have discussed the case with the hospitalist, Dr. Palumbo, who is agreed to admit her for IV fluids. Last Recorded V/S: Last Vital Signs Temp 97 F 08/29/19 17:29 Pulse 97 08/29/19 17:29 Resp 17 08/29/19 17:29 BP 122/64 08/29/19 17:29 Pulse Ox 100 08/29/19 17:29 - Orders/Labs/Meds Orders: Active Orders 24 hr Category Date Time Status EKG 12 Lead [EKG Documentation Completion] [RC] STAT Care 08/29/19 18:01 Active Medication Orders Sodium Chloride (Normal Saline) 1,000 mls @ 250 mls/hr IV .BOLUS ONE Stop: 08/29/19 23:43 Last Admin: 08/29/19 19:53 Dose: 250 mls/hr Labs: Laboratory Tests 08/29/19 08/29/19 08/29/19 Range/Units 17:39 17:39 17:39 WBC 14.45 H (4.0-11.0) K/uL RBC 4.04 L (4.30-5.90) M/uL Hgb 11.5 L (12.0-16.0) g/dL Hct 37.4 (36.0-46.0) % MCV 92.6 (80.0-98.0) fL MCH 28.5 (27.0-32.0) pg MCHC 30.7 L (31.0-37.0) g/dL RDW Std Deviation 52.4 (28.0-62.0) fl RDW Coeff of Sebastien 15 (11.0-15.0) % Plt Count 393 (150-400) K/uL MPV 10.30 (7.40-12.00) fL Neut % (Auto) 80.6 H (48.0-80.0) % Lymph % (Auto) 9.1 L (16.0-40.0) % [place] % (Auto) 10.1 (0.0-15.0) % Eos % (Auto) 0.0 (0.0-7.0) % Baso % (Auto) 0.2 (0.0-1.5) % Neut # (Auto) 11.6 H (1.4-5.7) K/uL Lymph # (Auto) 1.3 (0.6-2.4) K/uL [place] # (Auto) 1.5 H (0.0-0.8) K/uL Eos # (Auto) 0.0 (0.0-0.7) K/uL Baso # (Auto) 0.0 (0.0-0.1) K/uL Nucleated RBC % 0.0 /100WBC Nucleated RBCs # 0 K/uL INR 1.02 Sodium 144 (136-145) mmol/L Potassium 4.7 (3.5-5.1) mmol/L Chloride 104 (98-107) mmol/L Carbon Dioxide 26.0 (21.0-32.0) mmol/L BUN 25 H (7.0-18.0) mg/dL Creatinine 2.5 H (0.6-1.0) mg/dL Est Cr Clr Drug Dosing 16.80 mL/min Estimated GFR (MDRD) 18.5 ml/min Glucose 132 H (74-106) mg/dL Calcium 11.7 H (8.5-10.1) mg/dL Total Bilirubin 0.8 (0.2-1.0) mg/dL AST 36 (15-37) IU/L ALT 22 (14-63) IU/L Alkaline Phosphatase 153 H (46-116) U/L Creatine Kinase 566 H (26-308) U/L Total Protein 7.8 (6.4-8.2) g/dL Albumin 3.3 L (3.4-5.0) g/dL Globulin 4.5 H (2.6-4.0) g/dL Albumin/Globulin Ratio 0.7 L (0.9-1.6) Meds: Medications Generic Name Dose Route Start Last Admin Trade Name Freq PRN Reason Stop Dose Admin Sodium Chloride 1,000 mls @ 250 mls/hr 08/29/19 19:44 08/29/19 19:53 Normal Saline IV 08/29/19 23:43 250 mls/hr .BOLUS ONE Administration Departure - Departure Time of Disposition: 19:47 Disposition: Admitted As Inpatient 64 Condition: Good Clinical Impression: Acute kidney injury - Discharge Information Sepsis Event Note - Evaluation Sepsis Screening Result: No Definite Risk - Focused Exam Vital Signs: Vital Signs Temp Pulse Resp BP Pulse Ox 08/29/19 17:29 97 F 97 17 122/64 100 Date Exam was Performed: 08/29/19 Time Exam was Performed: 21:00 - My Orders Last 24 Hours: My Active Orders 08/29/19 18:01 EKG 12 Lead [EKG Documentation Completion] [RC] STAT - Assessment/Plan Last 24 Hours: My Active Orders 08/29/19 18:01 EKG 12 Lead [EKG Documentation Completion] [RC] STAT
[2019-08-29 18:15] LABS: POTASSIUM,K 4.7 mmol/L (3.5-5.1)
--- NOTE | 2019-08-29 19:23 | CR ---
Left knee: AP, lateral and sunrise patellar views of the left knee were obtained. Comparison: No prior knee exam is available. Knee prosthesis is seen. Components are aligned. No fracture, dislocation or other bony abnormality is seen. Impression: 1. Knee prosthesis. 2. Nothing acute is appreciated on left knee exam. Diagnostic code #2 Study was dictated in [place] Standard Time
--- NOTE | 2019-08-29 19:23 | CT ---
Head CT Technique: Multiple axial sections through the brain were obtained. Intravenous contrast was not utilized. Comparison: No prior intracranial imaging. Findings: Ventricles along with basal cisterns and sulci over the convexities are mildly prominent. Mild diminished density is noted within the periventricular white matter compatible with small vessel ischemic demyelination change. No evidence of intracranial hemorrhage. No midline shift or mass effect is seen. Bone window settings were reviewed. Mastoid sinuses show nothing acute. Visualized paranasal sinuses show nothing acute. No acute calvarial abnormality is appreciated. Impression: 1. Mild senescent change as noted above. 2. No acute intracranial abnormality is appreciated. Diagnostic code #2 Study was dictated in [place] Standard Time
--- NOTE | 2019-08-29 19:23 | CR ---
Right knee: AP, lateral and sunrise patellar views of the right knee were obtained. Comparison: No previous knee exam. Knee prosthesis is seen. Components are aligned. Underlying bony structures are intact. No acute fracture or other abnormality is appreciated. Impression: 1. Knee prosthesis. 2. Nothing acute is appreciated on 3 view right knee exam. Diagnostic code #2 Study was dictated in [place] Standard Time
--- NOTE | 2019-08-29 19:29 | CR ---
Pelvis: AP view of the pelvis was obtained. Comparison: No prior pelvis or hip study. Left hip prosthesis is noted. Fairly severe joint space narrowing is noted within the right hip. Bony structures are osteopenic. Nothing acute is definitely appreciated. Surgical clips are seen within the lower abdomen. Inferior vena cava filter is noted. Impression: 1. Findings as noted above. 2. Nothing acute is appreciated on AP pelvis study. Diagnostic code #2 Study was dictated in [place] Standard Time
[2019-08-29] MEDS ORDERED: Sodium Chloride 0.9% 1,000 ML IV ONE (19:44)
--- NOTE | 2019-08-29 23:28 | PCM.HP.2 ---
H&P History of Present Illness - General Date of Service: 08/29/19 Admit Problem/Dx: Admission Diagnosis/Problem Admission Diagnosis/Problem Fall at home bilateral knee Pain Score (Numeric/FACES): 8 - Related Data Allergies/Adverse Reactions: Allergies Allergy/AdvReac Type Severity Reaction Status Date / Time NSAIDS (Non-Steroidal Allergy Other Verified 08/29/19 21:21 Anti-Inflamma Home Medications: Home Meds ALPRAZolam [Xanax XR] 1 mg PO ASDIRECTED PRN 10/19/17 [History] Calcium Carbonate [Calcium] 600 mg PO BID 10/19/17 [History] Cholecalciferol (Vitamin D3) [Vitamin D] 1,000 unit PO DAILY 10/19/17 [History] Enalapril [Vasotec] 2.5 mg PO BID 10/19/17 [History] Furosemide 40 mg PO BID 10/19/17 [History] Levothyroxine [Synthroid] 1,000 mcg PO DAILY 10/19/17 [History] Potassium Bicarbonate/Cit Ac [Potassium 25 Meq Tablet Eff] 20 meq PO BID [History] Primidone 50 mg PO BEDTIME 10/19/17 [History] Warfarin [Coumadin] 7.5 mg PO DAILY 10/19/17 [History] carvediloL [Carvedilol] 3.125 mg PO BID 10/19/17 [History] Cyanocobalamin (Vitamin B-12) [Cyanocobalamin Injection] 08/29/19 [History] Gabapentin [Neurontin] 300 mg PO BEDTIME 08/29/19 [History] Past Medical History HEENT History: Reports: Cataract Cardiovascular History: Reports: Blood Clots/VTE/DVT, Heart Failure Respiratory History: Reports: PE Gastrointestinal History: Reports: None Genitourinary History: Reports: None [employer]ENT History: Reports: None Neurological History: Reports: None Psychiatric History: Reports: None Endocrine/Metabolic History: Reports: Hypothyroidism Hematologic History: Reports: Other (See Below) Other Hematologic History: blood clot Immunologic History: Reports: None Oncologic (Cancer) History: Reports: None Dermatologic History: Reports: None - Infectious Disease History Infectious Disease History: Reports: Chicken Pox, Measles, Mumps - Past Surgical History Head Surgeries/Procedures: Reports: None HEENT Surgical History: Reports: Cataract Surgery Musculoskeletal Surgical History: Reports: Hip Replacement, Knee Replacement Oncologic Surgical History: Reports: None Social & Family History - Family History Family Medical History: Noncontributory - Tobacco Use Smoking Status *Q: Never Smoker Used Tobacco, but Quit: Yes Month/Year Tobacco Last Used: Quit smoking 25 years ago as stated by the patient Tobacco Use Comment: Quit smoking 25 years ago as stated by the patient Second Hand Smoke Exposure: No - Caffeine Use Caffeine Use: Reports: Coffee - Recreational Drug Use Recreational Drug Use: No Exam - Vital Signs Vital Signs: Last Vital Signs Temp 36.1 C 08/29/19 21:05 Pulse 97 08/29/19 21:15 Resp 17 08/29/19 21:15 BP 138/75 08/29/19 21:15 Pulse Ox 96 08/29/19 21:15 Weight: 87.897 kg - Patient Data Lab Results Last 24 hrs: Laboratory Results - last 24 hr 08/29/19 08/29/19 08/29/19 Range/Units 17:39 17:39 17:39 WBC 14.45 H (4.0-11.0) K/uL RBC 4.04 L (4.30-5.90) M/uL Hgb 11.5 L (12.0-16.0) g/dL Hct 37.4 (36.0-46.0) % MCV 92.6 (80.0-98.0) fL MCH 28.5 (27.0-32.0) pg MCHC 30.7 L (31.0-37.0) g/dL RDW Std Deviation 52.4 (28.0-62.0) fl RDW Coeff of Sebastien 15 (11.0-15.0) % Plt Count 393 (150-400) K/uL MPV 10.30 (7.40-12.00) fL Neut % (Auto) 80.6 H (48.0-80.0) % Lymph % (Auto) 9.1 L (16.0-40.0) % [place] % (Auto) 10.1 (0.0-15.0) % Eos % (Auto) 0.0 (0.0-7.0) % Baso % (Auto) 0.2 (0.0-1.5) % Neut # (Auto) 11.6 H (1.4-5.7) K/uL Lymph # (Auto) 1.3 (0.6-2.4) K/uL [place] # (Auto) 1.5 H (0.0-0.8) K/uL Eos # (Auto) 0.0 (0.0-0.7) K/uL Baso # (Auto) 0.0 (0.0-0.1) K/uL Nucleated RBC % 0.0 /100WBC Nucleated RBCs # 0 K/uL INR 1.02 Sodium 144 (136-145) mmol/L Potassium 4.7 (3.5-5.1) mmol/L Chloride 104 (98-107) mmol/L Carbon Dioxide 26.0 (21.0-32.0) mmol/L BUN 25 H (7.0-18.0) mg/dL Creatinine 2.5 H (0.6-1.0) mg/dL Est Cr Clr Drug Dosing 16.80 mL/min Estimated GFR (MDRD) 18.5 ml/min Glucose 132 H (74-106) mg/dL Calcium 11.7 H (8.5-10.1) mg/dL Total Bilirubin 0.8 (0.2-1.0) mg/dL AST 36 (15-37) IU/L ALT 22 (14-63) IU/L Alkaline Phosphatase 153 H (46-116) U/L Creatine Kinase 566 H (26-308) U/L Total Protein 7.8 (6.4-8.2) g/dL Albumin 3.3 L (3.4-5.0) g/dL Globulin 4.5 H (2.6-4.0) g/dL Albumin/Globulin Ratio 0.7 L (0.9-1.6) Result Diagrams: 08/29/19 17:39 08/29/19 17:39 Sepsis Event Note - Evaluation Sepsis Screening Result: No Definite Risk - Focused Exam Vital Signs: Vital Signs Temp Pulse Resp BP BP Pulse Ox 08/29/19 21:15 97 17 138/75 96 08/29/19 21:05 36.1 C 100 19 150/100 H 95 08/29/19 20:57 36.9 C 86 17 141/79 H 98 08/29/19 20:00 100 17 153/71 H 97 08/29/19 19:00 101 H 17 162/89 H 96 08/29/19 18:15 88 17 140/91 H 98 08/29/19 18:00 88 18 131/59 L 96 08/29/19 17:45 93 18 105/60 105/60 96 08/29/19 17:29 36.1 C 97 20 122/64 122/64 100 Date Exam was Performed: 08/29/19 Time Exam was Performed: 23:28 Orders Last 24hrs: Active Orders 24 hr Category Date Time Status Admission Status [Patient Status] [ADT] Stat ADT 08/29/19 18:26 Active Change Admitting Physician [ADT] Stat ADT 08/29/19 19:46 Ordered EKG 12 Lead [EKG Documentation Completion] [RC] STAT Care 08/29/19 18:01 Active Regular Diet [DIET] Diet 08/30/19 Breakfast Active BMP [BASIC METABOLIC PANEL,BMP] [CHEM] AM Lab 08/30/19 05:11 Ordered CBC WITH AUTO DIFF [HEME] AM Lab 08/30/19 05:11 Ordered UA RFX CECILIO AND CULT IF INDIC [URIN] Routine Lab 08/29/19 23:24 Ordered Levothyroxine [Synthroid] Med 08/30/19 09:00 Ordered 1,000 mcg PO DAILY Primidone [Mysoline] Med 08/29/19 21:00 Ordered 50 mg PO BEDTIME Sodium Chloride 0.9% [Normal Saline] 1,000 ml Med 08/29/19 19:44 Active IV .BOLUS Sodium Chloride 0.9% [Normal Saline] 1,000 ml Med 08/29/19 21:30 Active IV ASDIRECTED carvediloL [Coreg] Med 08/30/19 09:00 Ordered 3.125 mg PO BID Medication Orders Carvedilol (Coreg) 3.125 mg PO BID JAZMIN Sodium Chloride (Normal Saline) 1,000 mls @ 250 mls/hr IV .BOLUS ONE Stop: 08/29/19 23:43 Last Admin: 08/29/19 19:53 Dose: 250 mls/hr Sodium Chloride (Normal Saline) 1,000 mls @ 125 mls/hr IV ASDIRECTED JAZMIN Levothyroxine Sodium (Synthroid) 1,000 mcg PO DAILY JAZMIN Primidone (Mysoline) 50 mg PO BEDTIME JAZMIN
--- NOTE | 2019-08-29 23:36 | PCM.HP.2 ---
H&P History of Present Illness - General Date of Service: 08/29/19 Admit Problem/Dx: Admission Diagnosis/Problem Admission Diagnosis/Problem Fall at home - History of Present Illness Initial Comments - Free Text/Narative: 78 yo female who presented to the ED following a fall. Patient reported last night at around midnight she fell in her bedroom onto her knees. She thinks she tripped over her blankets. She denied any lightheadness or syncope. She reports getting over to her back and scooting through her kitchen to a back castillo wall were she sat up on some steps but was unable to pull herself up. She sat there until her daughter found her there the following afternoon. bilateral knee Pain Score (Numeric/FACES): 8 - Related Data Allergies/Adverse Reactions: Allergies Allergy/AdvReac Type Severity Reaction Status Date / Time NSAIDS (Non-Steroidal Allergy Other Verified 08/29/19 21:21 Anti-Inflamma Home Medications: Home Meds ALPRAZolam [Xanax XR] 1 mg PO DAILY PRN 10/19/17 [History] Calcium Carbonate [Calcium] 600 mg PO BID 10/19/17 [History] Cholecalciferol (Vitamin D3) [Vitamin D] 1,000 unit PO DAILY 10/19/17 [History] Enalapril [Vasotec] 2.5 mg PO BID 10/19/17 [History] Furosemide 40 mg PO BID 10/19/17 [History] Levothyroxine [Synthroid] 100 mcg PO DAILY 10/19/17 [History] Primidone 50 mg PO BEDTIME 10/19/17 [History] Warfarin [Coumadin] 5 mg PO DAILY 10/19/17 [History] carvediloL [Carvedilol] 3.125 mg PO BID 10/19/17 [History] Cyanocobalamin (Vitamin B-12) [Cyanocobalamin Injection] 1,000 mcg IM Q30D 08/29 [History] Gabapentin [Neurontin] 300 mg PO BEDTIME 08/29/19 [History] Potassium Chloride [Klor-Con M20] 20 meq PO BID 08/30/19 [History] Propranolol [Inderal] 10 mg PO QID 08/30/19 [History] rOPINIRole [Requip] 0.25 mg PO BEDTIME 08/30/19 [History] Past Medical History HEENT History: Reports: Cataract Cardiovascular History: Reports: Blood Clots/VTE/DVT, Heart Failure Respiratory History: Reports: PE Gastrointestinal History: Reports: None Genitourinary History: Reports: None [employer] 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 Neurological History: Reports: None Psychiatric History: Reports: None Endocrine/Metabolic History: Reports: Hypothyroidism Hematologic History: Reports: Other (See Below) Other Hematologic History: blood clot Immunologic History: Reports: None Oncologic (Cancer) History: Reports: None Dermatologic History: Reports: None - Infectious Disease History Infectious Disease History: Reports: Chicken Pox, Measles, Mumps - Past Surgical History Head Surgeries/Procedures: Reports: None HEENT Surgical History: Reports: Cataract Surgery Musculoskeletal Surgical History: Reports: Hip Replacement, Knee Replacement Oncologic Surgical History: Reports: None Social & Family History - Family History Family Medical History: Noncontributory - Tobacco Use Smoking Status *Q: Never Smoker Used Tobacco, but Quit: Yes Month/Year Tobacco Last Used: Quit smoking 25 years ago as stated by the patient Tobacco Use Comment: Quit smoking 25 years ago as stated by the patient Second Hand Smoke Exposure: No - Caffeine Use Caffeine Use: Reports: Coffee - Recreational Drug Use Recreational Drug Use: No H&P Review of Systems - Review of Systems: Review Of Systems: Comprehensive ROS is negative, except as noted in HPI. Exam - Exam Exam: See Below - Vital Signs Vital Signs: Last Vital Signs Temp 36.1 C 08/29/19 21:05 Pulse 97 08/29/19 21:15 Resp 17 08/29/19 21:15 BP 138/75 08/29/19 21:15 Pulse Ox 96 08/29/19 21:15 Weight: 87.897 kg - Exam General: Alert, Cooperative. No: Severe Distress HEENT: Mucosa Moist & [place] Neck: Supple, Trachea Midline Lungs: Clear to Auscultation, Normal Respiratory Effort Cardiovascular: Regular Rate, Regular Rhythm GI/Abdominal Exam: Soft, Non-Tender, No Distention Extremities: Non-Tender, No Pedal Edema Skin: Warm, Dry, Intact - Patient Data Lab Results Last 24 hrs: Laboratory Results - last 24 hr 08/29/19 08/29/19 08/29/19 Range/Units 17:39 17:39 17:39 WBC 14.45 H (4.0-11.0) K/uL RBC 4.04 L (4.30-5.90) M/uL Hgb 11.5 L (12.0-16.0) g/dL Hct 37.4 (36.0-46.0) % MCV 92.6 (80.0-98.0) fL MCH 28.5 (27.0-32.0) pg MCHC 30.7 L (31.0-37.0) g/dL RDW Std Deviation 52.4 (28.0-62.0) fl RDW Coeff of Sebastien 15 (11.0-15.0) % Plt Count 393 (150-400) K/uL MPV 10.30 (7.40-12.00) fL Neut % (Auto) 80.6 H (48.0-80.0) % Lymph % (Auto) 9.1 L (16.0-40.0) % [place] % (Auto) 10.1 (0.0-15.0) % Eos % (Auto) 0.0 (0.0-7.0) % Baso % (Auto) 0.2 (0.0-1.5) % Neut # (Auto) 11.6 H (1.4-5.7) K/uL Lymph # (Auto) 1.3 (0.6-2.4) K/uL [place] # (Auto) 1.5 H (0.0-0.8) K/uL Eos # (Auto) 0.0 (0.0-0.7) K/uL Baso # (Auto) 0.0 (0.0-0.1) K/uL Nucleated RBC % 0.0 /100WBC Nucleated RBCs # 0 K/uL INR 1.02 Sodium 144 (136-145) mmol/L Potassium 4.7 (3.5-5.1) mmol/L Chloride 104 (98-107) mmol/L Carbon Dioxide 26.0 (21.0-32.0) mmol/L BUN 25 H (7.0-18.0) mg/dL Creatinine 2.5 H (0.6-1.0) mg/dL Est Cr Clr Drug Dosing 16.80 mL/min Estimated GFR (MDRD) 18.5 ml/min Glucose 132 H (74-106) mg/dL Calcium 11.7 H (8.5-10.1) mg/dL Total Bilirubin 0.8 (0.2-1.0) mg/dL AST 36 (15-37) IU/L ALT 22 (14-63) IU/L Alkaline Phosphatase 153 H (46-116) U/L Creatine Kinase 566 H (26-308) U/L Total Protein 7.8 (6.4-8.2) g/dL Albumin 3.3 L (3.4-5.0) g/dL Globulin 4.5 H (2.6-4.0) g/dL Albumin/Globulin Ratio 0.7 L (0.9-1.6) Result Diagrams: 09/01/19 06:06 09/01/19 06:06 Sepsis Event Note - Evaluation Sepsis Screening Result: No Definite Risk - Focused Exam Vital Signs: Vital Signs Temp Pulse Resp BP BP Pulse Ox 08/29/19 21:15 97 17 138/75 96 08/29/19 21:05 36.1 C 100 19 150/100 H 95 08/29/19 20:57 36.9 C 86 17 141/79 H 98 08/29/19 20:00 100 17 153/71 H 97 08/29/19 19:00 101 H 17 162/89 H 96 08/29/19 18:15 88 17 140/91 H 98 08/29/19 18:00 88 18 131/59 L 96 08/29/19 17:45 93 18 105/60 105/60 96 08/29/19 17:29 36.1 C 97 20 122/64 122/64 100 Date Exam was Performed: 09/01/19 Time Exam was Performed: 10:56 Problem List Initiated/Reviewed/Updated: Yes Orders Last 24hrs: Active Orders 24 hr Category Date Time Status Admission Status [Patient Status] [ADT] Stat ADT 08/29/19 18:26 Active Change Admitting Physician [ADT] Stat ADT 08/29/19 19:46 Ordered EKG 12 Lead [EKG Documentation Completion] [RC] STAT Care 08/29/19 18:01 Active Regular Diet [DIET] Diet 08/30/19 Breakfast Active BMP [BASIC METABOLIC PANEL,BMP] [CHEM] AM Lab 08/30/19 05:11 Ordered CBC WITH AUTO DIFF [HEME] AM Lab 08/30/19 05:11 Ordered CPK [CREATINE KINASE,CK] [CHEM] AM Lab 08/30/19 05:11 Ordered UA RFX CECILIO AND CULT IF INDIC [URIN] Routine Lab 08/29/19 23:24 Ordered Levothyroxine [Synthroid] Med 08/30/19 09:00 Ordered 1,000 mcg PO DAILY Primidone [Mysoline] Med 08/29/19 21:00 Ordered 50 mg PO BEDTIME Sodium Chloride 0.9% [Normal Saline] 1,000 ml Med 08/29/19 19:44 Active IV .BOLUS Sodium Chloride 0.9% [Normal Saline] 1,000 ml Med 08/29/19 21:30 Active IV ASDIRECTED carvediloL [Coreg] Med 08/30/19 09:00 Ordered 3.125 mg PO BID Medication Orders Carvedilol (Coreg) 3.125 mg PO BID JAZMIN Sodium Chloride (Normal Saline) 1,000 mls @ 250 mls/hr IV .BOLUS ONE Stop: 08/29/19 23:43 Last Admin: 08/29/19 19:53 Dose: 250 mls/hr Sodium Chloride (Normal Saline) 1,000 mls @ 125 mls/hr IV ASDIRECTED JAZMIN Levothyroxine Sodium (Synthroid) 1,000 mcg PO DAILY JAZMIN Primidone (Mysoline) 50 mg PO BEDTIME JAZMIN Assessment/Plan Comment:: 78 yo female admitted to the hospital for acute kidney injury following a fall home. I suspect acute kidney injury is due to dehydration. We will monitor on telemetry overnight and hydrate with IV fluids.
[2019-08-29] MEDS: Sodium Chloride 0.9% 1,000 ML IV SCH (23:55)
[2019-08-30] MEDS: Primidone 50 MG Tab PO SCH ×2 (00:01→22:04)
[2019-08-30 06:11] LABS: CARBON DIOXIDE,CO2 28.3 mmol/L (21.0-32.0); POTASSIUM,K 3.7 mmol/L (3.5-5.1)
[2019-08-30] MEDS ORDERED: Levothyroxine 100 MCG Tab PO SCH (07:30)
[2019-08-30] MEDS ORDERED: Acetaminophen/HYDROcodone 325-5 MG Tab PO PRN (07:36)
[2019-08-30] MEDS ORDERED: Ondansetron 4 MG Tab.DIS PO PRN (07:36)
--- NOTE | 2019-08-30 07:40 | PCM.PN ---
- General Info Date of Service: 08/30/19 Subjective Update: No acute events overnight. Endorses some mild bilateral knee pain. No chest pain , dyspnea, abdominal pain. - Patient Data Vitals - Most Recent: Last Vital Signs Temp 36.8 C 08/30/19 04:00 Pulse 90 08/30/19 04:00 Resp 17 08/30/19 04:00 BP 119/57 L 08/30/19 04:00 Pulse Ox 95 08/30/19 04:00 Weight - Most Recent: 87.897 kg I&O - Last 24 Hours: Intake & Output 08/29/19 08/30/19 08/30/19 22:59 06:59 14:59 Intake Total 1778 Output Total 300 Balance 1478 Lab Results Last 24 Hours: Laboratory Results - last 24 hr 08/29/19 08/29/19 08/29/19 Range/Units 17:39 17:39 17:39 WBC 14.45 H (4.0-11.0) K/uL RBC 4.04 L (4.30-5.90) M/uL Hgb 11.5 L (12.0-16.0) g/dL Hct 37.4 (36.0-46.0) % MCV 92.6 (80.0-98.0) fL MCH 28.5 (27.0-32.0) pg MCHC 30.7 L (31.0-37.0) g/dL RDW Std Deviation 52.4 (28.0-62.0) fl RDW Coeff of Sebastien 15 (11.0-15.0) % Plt Count 393 (150-400) K/uL MPV 10.30 (7.40-12.00) fL Neut % (Auto) 80.6 H (48.0-80.0) % Lymph % (Auto) 9.1 L (16.0-40.0) % [place] % (Auto) 10.1 (0.0-15.0) % Eos % (Auto) 0.0 (0.0-7.0) % Baso % (Auto) 0.2 (0.0-1.5) % Neut # (Auto) 11.6 H (1.4-5.7) K/uL Lymph # (Auto) 1.3 (0.6-2.4) K/uL [place] # (Auto) 1.5 H (0.0-0.8) K/uL Eos # (Auto) 0.0 (0.0-0.7) K/uL Baso # (Auto) 0.0 (0.0-0.1) K/uL Nucleated RBC % 0.0 /100WBC Nucleated RBCs # 0 K/uL INR 1.02 Sodium 144 (136-145) mmol/L Potassium 4.7 (3.5-5.1) mmol/L Chloride 104 (98-107) mmol/L Carbon Dioxide 26.0 (21.0-32.0) mmol/L BUN 25 H (7.0-18.0) mg/dL Creatinine 2.5 H (0.6-1.0) mg/dL Est Cr Clr Drug Dosing 16.80 mL/min Estimated GFR (MDRD) 18.5 ml/min Glucose 132 H (74-106) mg/dL Calcium 11.7 H (8.5-10.1) mg/dL Total Bilirubin 0.8 (0.2-1.0) mg/dL AST 36 (15-37) IU/L ALT 22 (14-63) IU/L Alkaline Phosphatase 153 H (46-116) U/L Creatine Kinase 566 H (26-308) U/L Total Protein 7.8 (6.4-8.2) g/dL Albumin 3.3 L (3.4-5.0) g/dL Globulin 4.5 H (2.6-4.0) g/dL Albumin/Globulin Ratio 0.7 L (0.9-1.6) Urine Color Urine Appearance Urine pH (5.0-8.0) Ur Specific [place] (1.001-1.035) Urine Protein (NEGATIVE) mg/dL Urine Glucose (UA) (NEGATIVE) mg/dL Urine Ketones (NEGATIVE) mg/dL Urine Occult Blood (NEGATIVE) Urine Nitrite (NEGATIVE) Urine Bilirubin (NEGATIVE) Urine Ictotest Urine Urobilinogen (<2.0) EU/dL Ur Leukocyte Esterase (NEGATIVE) U Hyaline Cast (Auto) (0-2/LPF) Urine RBC (0-2/HPF) Urine WBC (0-5/HPF) Ur Epithelial Cells (NONE-FEW) Urine Bacteria (NEGATIVE) Urine Mucus (NONE-MOD) 08/30/19 08/30/19 08/30/19 Range/Units 04:00 05:19 05:19 WBC 9.05 (4.0-11.0) K/uL RBC 3.30 L (4.30-5.90) M/uL Hgb 9.4 L (12.0-16.0) g/dL Hct 30.5 L (36.0-46.0) % MCV 92.4 (80.0-98.0) fL MCH 28.5 (27.0-32.0) pg MCHC 30.8 L (31.0-37.0) g/dL RDW Std Deviation 53.4 (28.0-62.0) fl RDW Coeff of Sebastien 16 H (11.0-15.0) % Plt Count 338 (150-400) K/uL MPV 9.90 (7.40-12.00) fL Neut % (Auto) 72.0 (48.0-80.0) % Lymph % (Auto) 16.8 (16.0-40.0) % [place] % (Auto) 10.3 (0.0-15.0) % Eos % (Auto) 0.6 (0.0-7.0) % Baso % (Auto) 0.3 (0.0-1.5) % Neut # (Auto) 6.5 H (1.4-5.7) K/uL Lymph # (Auto) 1.5 (0.6-2.4) K/uL [place] # (Auto) 0.9 H (0.0-0.8) K/uL Eos # (Auto) 0.1 (0.0-0.7) K/uL Baso # (Auto) 0.0 (0.0-0.1) K/uL Nucleated RBC % 0.0 /100WBC Nucleated RBCs # 0 K/uL INR Sodium 145 (136-145) mmol/L Potassium 3.7 (3.5-5.1) mmol/L Chloride 108 H (98-107) mmol/L Carbon Dioxide 28.3 (21.0-32.0) mmol/L BUN 26 H (7.0-18.0) mg/dL Creatinine 1.9 H (0.6-1.0) mg/dL Est Cr Clr Drug Dosing 22.11 mL/min Estimated GFR (MDRD) 25.4 ml/min Glucose 99 (74-106) mg/dL Calcium 9.7 (8.5-10.1) mg/dL Total Bilirubin (0.2-1.0) mg/dL AST (15-37) IU/L ALT (14-63) IU/L Alkaline Phosphatase (46-116) U/L Creatine Kinase 504 H (26-308) U/L Total Protein (6.4-8.2) g/dL Albumin (3.4-5.0) g/dL Globulin (2.6-4.0) g/dL Albumin/Globulin Ratio (0.9-1.6) Urine Color YELLOW Urine Appearance CLOUDY Urine pH 5.0 (5.0-8.0) Ur Specific [place] >= 1.030 (1.001-1.035) Urine Protein 30 H (NEGATIVE) mg/dL Urine Glucose (UA) NEGATIVE (NEGATIVE) mg/dL Urine Ketones TRACE H (NEGATIVE) mg/dL Urine Occult Blood MODERATE H (NEGATIVE) Urine Nitrite NEGATIVE (NEGATIVE) Urine Bilirubin MODERATE H (NEGATIVE) Urine Ictotest NEGATIVE Urine Urobilinogen 0.2 (<2.0) EU/dL Ur Leukocyte Esterase MODERATE H (NEGATIVE) U Hyaline Cast (Auto) 0-1 (0-2/LPF) Urine RBC 1-4 (0-2/HPF) Urine WBC 20-30 (0-5/HPF) Ur Epithelial Cells MODERATE (NONE-FEW) Urine Bacteria 3+ H (NEGATIVE) Urine Mucus LIGHT (NONE-MOD) Med Orders - Current: Current Medications Acetaminophen (Tylenol) 650 mg PO Q4H PRN PRN Reason: Pain (Mild 1-3)/fever Hydrocodone Bitart/Acetaminophen ([place] 325-5 Mg) 1 tab PO Q6H PRN PRN Reason: Pain (moderate 4-6) Carvedilol (Coreg) 3.125 mg PO BID [facility] Enoxaparin Sodium (Lovenox) 40 mg SUBCUT Q24H [facility] Gabapentin (Neurontin) 300 mg PO BEDTIME [facility] Sodium Chloride (Normal Saline) 1,000 mls @ 125 mls/hr IV ASDIRECTED [facility] Last Admin: 08/29/19 23:55 Dose: 125 mls/hr Ceftriaxone Sodium/Dextrose 1 (gm/ Premix) 50 mls @ 100 mls/hr IV Q24H [facility] Levothyroxine Sodium (Synthroid) 100 mcg PO ACBREAKFAST [facility] Last Admin: 08/30/19 06:47 Dose: 100 mcg Ondansetron HCl (Zofran Odt) 4 mg PO Q4H PRN PRN Reason: nausea, able to take PO Primidone (Mysoline) 50 mg PO BEDTIME [facility] Last Admin: 08/30/19 00:01 Dose: 50 mg Discontinued Medications Enalapril Maleate (Vasotec) 2.5 mg PO BID [facility] Sodium Chloride (Normal Saline) 1,000 mls @ 250 mls/hr IV .BOLUS ONE Stop: 08/29/19 23:43 Last Admin: 08/29/19 19:53 Dose: 250 mls/hr - Exam General: Alert, Oriented, Cooperative, No Acute Distress Lungs: Clear to Auscultation, Normal Respiratory Effort. No: Crackles, Wheezing Cardiovascular: Regular Rate, Regular Rhythm GI/Abdominal Exam: Normal Bowel Sounds, Soft, Non-Tender, No Distention Extremities: Other (mild bilateral knee pain) Skin: Warm, Dry Sepsis Event Note - Evaluation Sepsis Screening Result: No Definite Risk - Focused Exam Vital Signs: Vital Signs Temp Pulse Resp BP BP Pulse Ox 08/30/19 04:00 36.8 C 90 17 119/57 L 95 08/30/19 00:00 36.3 C 93 18 116/55 L 95 08/29/19 21:15 97 17 138/75 96 08/29/19 21:05 36.1 C 100 19 150/100 H 95 08/29/19 20:57 36.9 C 86 17 141/79 H 98 08/29/19 20:00 100 17 153/71 H 97 Date Exam was Performed: 08/30/19 Time Exam was Performed: 10:58 - Problem List Review Problem List Initiated/Reviewed/Updated: Yes - My Orders Last 24 Hours: My Active Orders 08/30/19 07:36 Intake and Output [RC] QSHIFT Oxygen Therapy [RC] PRN Up With Assistance [RC] ASDIRECTED VTE/DVT Education [RC] PER UNIT ROUTINE Vital Signs [RC] Q4H Acetaminophen [Tylenol] 650 mg PO Q4H PRN Acetaminophen/HYDROcodone [[place] 325-5 MG] 1 tab PO Q6H PRN Ondansetron [Zofran ODT] 4 mg PO Q4H PRN Resuscitation Status Routine 08/30/19 07:45 Enoxaparin [Lovenox] 40 mg SUBCUT Q24H cefTRIAXone [Rocephin in Dextrose,Iso-Osm 1 GM/50 ML] 1 gm Premix Bag 1 bag IV Q24H 08/30/19 21:00 Gabapentin [Neurontin] 300 mg PO BEDTIME - Plan Plan:: A: 1. Acute kidney injury 2. Rhabdomyolysis 3. Urinary tract infection 4. Ambulatory dysfunction s/p fall 5. PMH DVT on warfarin P: 1. Continue with maintenance fluids for HEIDI and elevated CK. Started ceftriaxone for UTI. Will get PT for ambulatory dysfunction s/p fall. Will resume warfarin and monitor daily INRs Dispo: 2-3 days
[2019-08-30] MEDS ORDERED: Enoxaparin 40 MG/0.4 ML Syringe SUBCUT SCH (07:45)
[2019-08-30] MEDS: cefTRIAXone 1 GM in Premix Bag 1 BAG IV SCH (08:14)
[2019-08-30] MEDS: Sodium Chloride 0.9% 1,000 ML IV SCH ×2 (08:14→16:55)
[2019-08-30] MEDS: Carvedilol 3.125 MG Tab PO SCH ×2 (09:33→22:04)
[2019-08-30] MEDS: Warfarin 5 MG Tab PO SCH (11:18)
[2019-08-30] MEDS: Acetaminophen 325 MG Tab PO PRN (19:41)
[2019-08-30] MEDS: Gabapentin 300 MG Cap PO SCH (22:04)
[2019-08-31] MEDS: Sodium Chloride 0.9% 1,000 ML IV SCH (02:14)
[2019-08-31] MEDS: Levothyroxine 100 MCG Tab PO SCH (06:11)
[2019-08-31 06:40] LABS: CARBON DIOXIDE,CO2 28.3 mmol/L (21.0-32.0); POTASSIUM,K 3.3 mmol/L (3.5-5.1)
[2019-08-31] MEDS: cefTRIAXone 1 GM in Premix Bag 1 BAG IV SCH (08:21)
[2019-08-31] MEDS: Carvedilol 3.125 MG Tab PO SCH ×2 (09:09→21:24)
[2019-08-31] MEDS: Warfarin 5 MG Tab PO SCH (09:10)
--- NOTE | 2019-08-31 10:08 | PCM.PN ---
- General Info Date of Service: 08/31/19 Subjective Update: no acute events overnight. States she feels better. working with physical therapy. - Patient Data Vitals - Most Recent: Last Vital Signs Temp 37.3 C 08/31/19 07:14 Pulse 85 08/31/19 09:09 Resp 16 08/31/19 07:14 BP 118/77 08/31/19 09:09 Pulse Ox 93 L 08/31/19 07:36 Orthostatic Blood Pressure [ 106/56 Standing] Orthostatic Blood Pressure [ 140/56 Sitting] Orthostatic Blood Pressure [ 134/79 Supine] Weight - Most Recent: 87.897 kg I&O - Last 24 Hours: Intake & Output 08/30/19 08/31/19 08/31/19 22:59 06:59 14:59 Intake Total 1815 Output Total 475 Balance 1340 Lab Results Last 24 Hours: Laboratory Results - last 24 hr 08/31/19 08/31/19 08/31/19 Range/Units 06:02 06:02 06:02 WBC 6.99 (4.0-11.0) K/uL RBC 3.00 L (4.30-5.90) M/uL Hgb 8.4 L (12.0-16.0) g/dL Hct 27.8 L (36.0-46.0) % MCV 92.7 (80.0-98.0) fL MCH 28.0 (27.0-32.0) pg MCHC 30.2 L (31.0-37.0) g/dL RDW Std Deviation 52.8 (28.0-62.0) fl RDW Coeff of Sebastien 16 H (11.0-15.0) % Plt Count 306 (150-400) K/uL MPV 9.50 (7.40-12.00) fL Neut % (Auto) 65.1 (48.0-80.0) % Lymph % (Auto) 23.2 (16.0-40.0) % [place] % (Auto) 10.4 (0.0-15.0) % Eos % (Auto) 0.9 (0.0-7.0) % Baso % (Auto) 0.4 (0.0-1.5) % Neut # (Auto) 4.6 (1.4-5.7) K/uL Lymph # (Auto) 1.6 (0.6-2.4) K/uL [place] # (Auto) 0.7 (0.0-0.8) K/uL Eos # (Auto) 0.1 (0.0-0.7) K/uL Baso # (Auto) 0.0 (0.0-0.1) K/uL Nucleated RBC % 0.0 /100WBC Nucleated RBCs # 0 K/uL INR 1.03 Sodium 145 (136-145) mmol/L Potassium 3.3 L (3.5-5.1) mmol/L Chloride 110 H (98-107) mmol/L Carbon Dioxide 28.3 (21.0-32.0) mmol/L BUN 17 (7.0-18.0) mg/dL Creatinine 1.1 H (0.6-1.0) mg/dL Est Cr Clr Drug Dosing 38.19 mL/min Estimated GFR (MDRD) 47.8 ml/min Glucose 91 (74-106) mg/dL Calcium 8.5 (8.5-10.1) mg/dL Iron (50-175) ug/dL TIBC (250-450) ug/dL % Saturation (20-55) % Ferritin (8-252) ng/mL Creatine Kinase 202 (26-308) U/L 08/31/19 Range/Units 07:47 WBC (4.0-11.0) K/uL RBC (4.30-5.90) M/uL Hgb (12.0-16.0) g/dL Hct (36.0-46.0) % MCV (80.0-98.0) fL MCH (27.0-32.0) pg MCHC (31.0-37.0) g/dL RDW Std Deviation (28.0-62.0) fl RDW Coeff of Sebastien (11.0-15.0) % Plt Count (150-400) K/uL MPV (7.40-12.00) fL Neut % (Auto) (48.0-80.0) % Lymph % (Auto) (16.0-40.0) % [place] % (Auto) (0.0-15.0) % Eos % (Auto) (0.0-7.0) % Baso % (Auto) (0.0-1.5) % Neut # (Auto) (1.4-5.7) K/uL Lymph # (Auto) (0.6-2.4) K/uL [place] # (Auto) (0.0-0.8) K/uL Eos # (Auto) (0.0-0.7) K/uL Baso # (Auto) (0.0-0.1) K/uL Nucleated RBC % /100WBC Nucleated RBCs # K/uL INR Sodium (136-145) mmol/L Potassium (3.5-5.1) mmol/L Chloride (98-107) mmol/L Carbon Dioxide (21.0-32.0) mmol/L BUN (7.0-18.0) mg/dL Creatinine (0.6-1.0) mg/dL Est Cr Clr Drug Dosing mL/min Estimated GFR (MDRD) ml/min Glucose (74-106) mg/dL Calcium (8.5-10.1) mg/dL Iron 16 L (50-175) ug/dL TIBC 241 L (250-450) ug/dL % Saturation 6.64 L (20-55) % Ferritin 108 (8-252) ng/mL Creatine Kinase (26-308) U/L Med Orders - Current: Current Medications Acetaminophen (Tylenol) 650 mg PO Q4H PRN PRN Reason: Pain (Mild 1-3)/fever Last Admin: 08/30/19 19:41 Dose: 650 mg Hydrocodone Bitart/Acetaminophen ([place] 325-5 Mg) 1 tab PO Q6H PRN PRN Reason: Pain (moderate 4-6) Carvedilol (Coreg) 3.125 mg PO BID [facility] Last Admin: 08/31/19 09:09 Dose: 3.125 mg Gabapentin (Neurontin) 300 mg PO BEDTIME [facility] Last Admin: 08/30/19 22:04 Dose: 300 mg Heparin Sodium (Porcine) (Heparin Sodium) 5,000 units SUBCUT Q8H [facility] Ceftriaxone Sodium/Dextrose 1 (gm/ Premix) 50 mls @ 100 mls/hr IV Q24H [facility] Last Admin: 08/31/19 08:21 Dose: 100 mls/hr Iron Dextran 100 mg/ Sodium (Chloride) 252 mls @ 42 mls/hr IV DAILY [facility] Stop: 09/01/19 14:59 Levothyroxine Sodium (Synthroid) 100 mcg PO DAILY@0630 [facility] Last Admin: 08/31/19 06:11 Dose: 100 mcg Ondansetron HCl (Zofran Odt) 4 mg PO Q4H PRN PRN Reason: nausea, able to take PO Primidone (Mysoline) 50 mg PO BEDTIME [facility] Last Admin: 08/30/19 22:04 Dose: 50 mg Sodium Chloride ([place] Nasal [place]) 0 ml FERNANDO Q4H PRN PRN Reason: Congestion Warfarin Sodium (Coumadin) 5 mg PO DAILY [facility] Last Admin: 08/31/19 09:10 Dose: 5 mg Discontinued Medications Enalapril Maleate (Vasotec) 2.5 mg PO BID [facility] Enoxaparin Sodium (Lovenox) 40 mg SUBCUT Q24H [facility] Last Admin: 08/30/19 08:15 Dose: 40 mg Sodium Chloride (Normal Saline) 1,000 mls @ 250 mls/hr IV .BOLUS ONE Stop: 08/29/19 23:43 Last Admin: 08/29/19 19:53 Dose: 250 mls/hr Sodium Chloride (Normal Saline) 1,000 mls @ 125 mls/hr IV ASDIRECTED [facility] Last Admin: 08/31/19 02:14 Dose: 125 mls/hr Levothyroxine Sodium (Synthroid) 100 mcg PO ACBREAKFAST [facility] Last Admin: 08/30/19 06:47 Dose: 100 mcg - Exam General: Alert, Oriented, Cooperative, No Acute Distress Lungs: Clear to Auscultation, Normal Respiratory Effort. No: Crackles, Wheezing Cardiovascular: Regular Rate, Regular Rhythm GI/Abdominal Exam: Normal Bowel Sounds, Soft, Non-Tender Extremities: Normal Inspection Skin: Warm, Dry Sepsis Event Note - Evaluation Sepsis Screening Result: No Definite Risk - Focused Exam Vital Signs: Vital Signs Temp Pulse Pulse Resp BP BP Pulse Ox 08/31/19 09:09 85 118/77 08/31/19 07:36 08/31/19 07:14 37.3 C 85 16 118/77 92 L 08/31/19 04:00 36.3 C 08/31/19 00:00 36.1 C 89 19 102/48 L 91 L Pulse Ox 08/31/19 09:09 08/31/19 07:36 93 L 08/31/19 07:14 08/31/19 04:00 08/31/19 00:00 Date Exam was Performed: 08/31/19 Time Exam was Performed: 10:27 - Problem List Review Problem List Initiated/Reviewed/Updated: Yes - My Orders Last 24 Hours: My Active Orders 08/30/19 11:00 Warfarin [Coumadin] 5 mg PO DAILY 08/30/19 21:00 Gabapentin [Neurontin] 300 mg PO BEDTIME 08/31/19 07:27 OCCULT BLOOD DIAGNOSTIC [OP] Routine 08/31/19 10:15 Iron Dextran Complex [Dexferrum] 100 mg Sodium Chloride 0.9% [Normal Saline] 250 ml IV DAILY 09/01/19 05:11 BASIC METABOLIC PANEL,BMP [CHEM] AM CBC WITH AUTO DIFF [HEME] AM - Plan Plan:: A: 1. UTI 2. Iron deficiency anemia 3. Ambulatory dysfunction s/p fall 4. HEIDI, resolved 5. Rhabdomyolysis, resolved P: 1. Continue ceftriaxone for UTI. Encourage PO intake. Will start Iron dextran for 2 doses due to iron deficiency anemia. Pending FOBT. Dispo: will need rehab for PT
[2019-08-31] MEDS: Iron Dextran Complex 100 MG in Sodium Chloride 0.9% 250 ML IV SCH (10:33)
[2019-08-31] MEDS: Sodium Chloride 0.65% Nasal Spray 45 ML Bottle NAS PRN (11:01)
[2019-08-31] MEDS: Heparin Sodium 5,000 Units/ML Vial SUBCUT SCH ×2 (14:24→21:27)
[2019-08-31] MEDS: Gabapentin 300 MG Cap PO SCH (21:24)
[2019-08-31] MEDS: Primidone 50 MG Tab PO SCH (21:27)
[2019-08-31] MEDS: Acetaminophen 325 MG Tab PO PRN (21:40)
[2019-09-01] MEDS: Heparin Sodium 5,000 Units/ML Vial SUBCUT SCH ×3 (06:12→21:49)
[2019-09-01] MEDS: Levothyroxine 100 MCG Tab PO SCH (06:12)
[2019-09-01 06:31] LABS: BLOOD UREA NITROGEN,BUN 12 mg/dL (7.0-18.0); CARBON DIOXIDE,CO2 26.4 mmol/L (21.0-32.0); CHLORIDE,CL 110 mmol/L (98-107); GLUCOSE RANDOM 91 mg/dL (74-106); POTASSIUM,K 3.7 mmol/L (3.5-5.1); SODIUM,NA 145 mmol/L (136-145)
[2019-09-01] MEDS ORDERED: ALPRAZolam 0.5 MG Tab PO PRN ×2 (07:25→10:20)
[2019-09-01] MEDS ORDERED: Polyethylene Glycol 3350 Powder 17 GM Packet PO PRN (07:30)
[2019-09-01] MEDS: cefTRIAXone 1 GM in Premix Bag 1 BAG IV SCH (08:59)
--- NOTE | 2019-09-01 10:01 | PCM.PN ---
- General Info Date of Service: 09/01/19 Subjective Update: No acute events overnight. Patient did not sleep well overnight. Overall, feels better. No chest angel, dyspnea, abdominal pain. - Patient Data Vitals - Most Recent: Last Vital Signs Temp 37.1 C 09/01/19 04:51 Pulse 91 09/01/19 04:51 Resp 16 09/01/19 04:51 BP 131/59 L 09/01/19 04:51 Pulse Ox 94 L 09/01/19 04:51 Orthostatic Blood Pressure [ 106/56 Standing] Orthostatic Blood Pressure [ 140/56 Sitting] Orthostatic Blood Pressure [ 134/79 Supine] Weight - Most Recent: 87.897 kg I&O - Last 24 Hours: Intake & Output 08/31/19 09/01/19 09/01/19 22:59 06:59 14:59 Intake Total 1100 750 Output Total 620 650 Balance 480 100 Lab Results Last 24 Hours: Laboratory Results - last 24 hr 09/01/19 09/01/19 09/01/19 Range/Units 06:06 06:06 06:06 WBC 6.60 (4.0-11.0) K/uL RBC 3.00 L (4.30-5.90) M/uL Hgb 8.4 L (12.0-16.0) g/dL Hct 27.6 L (36.0-46.0) % MCV 92.0 (80.0-98.0) fL MCH 28.0 (27.0-32.0) pg MCHC 30.4 L (31.0-37.0) g/dL RDW Std Deviation 51.0 (28.0-62.0) fl RDW Coeff of Sebastien 15 (11.0-15.0) % Plt Count 307 (150-400) K/uL MPV 9.20 (7.40-12.00) fL Neut % (Auto) 66.6 (48.0-80.0) % Lymph % (Auto) 22.3 (16.0-40.0) % [place] % (Auto) 9.7 (0.0-15.0) % Eos % (Auto) 1.1 (0.0-7.0) % Baso % (Auto) 0.3 (0.0-1.5) % Neut # (Auto) 4.4 (1.4-5.7) K/uL Lymph # (Auto) 1.5 (0.6-2.4) K/uL [place] # (Auto) 0.6 (0.0-0.8) K/uL Eos # (Auto) 0.1 (0.0-0.7) K/uL Baso # (Auto) 0.0 (0.0-0.1) K/uL Nucleated RBC % 0.3 /100WBC Nucleated RBCs # 0 K/uL INR 1.08 Sodium 145 (136-145) mmol/L Potassium 3.7 (3.5-5.1) mmol/L Chloride 110 H (98-107) mmol/L Carbon Dioxide 26.4 (21.0-32.0) mmol/L BUN 12 (7.0-18.0) mg/dL Creatinine 0.9 (0.6-1.0) mg/dL Est Cr Clr Drug Dosing 46.67 mL/min Estimated GFR (MDRD) > 60.0 ml/min Glucose 91 (74-106) mg/dL Calcium 8.3 L (8.5-10.1) mg/dL [place] Results Last 24 Hours: Microbiology 08/30/19 04:00 Urine Culture - Final Urine, Clean Catch MIXED KRYSTYNA >100,000 CFU/ML Med Orders - Current: Current Medications Acetaminophen (Tylenol) 650 mg PO Q4H PRN PRN Reason: Pain (Mild 1-3)/fever Last Admin: 08/31/19 21:40 Dose: 650 mg Hydrocodone Bitart/Acetaminophen ([place] 325-5 Mg) 1 tab PO Q6H PRN PRN Reason: Pain (moderate 4-6) Alprazolam (Xanax) 1 mg PO DAILY PRN PRN Reason: Anxiety Carvedilol (Coreg) 3.125 mg PO BID [facility] Last Admin: 08/31/19 21:24 Dose: 3.125 mg Gabapentin (Neurontin) 300 mg PO BEDTIME [facility] Last Admin: 08/31/19 21:24 Dose: 300 mg Heparin Sodium (Porcine) (Heparin Sodium) 5,000 units SUBCUT Q8H [facility] Last Admin: 09/01/19 06:12 Dose: 5,000 units Ceftriaxone Sodium/Dextrose 1 (gm/ Premix) 50 mls @ 100 mls/hr IV Q24H [facility] Last Admin: 09/01/19 08:59 Dose: 100 mls/hr Iron Dextran 100 mg/ Sodium (Chloride) 252 mls @ 42 mls/hr IV DAILY [facility] Stop: 09/01/19 14:59 Last Admin: 08/31/19 10:33 Dose: 42 mls/hr Levothyroxine Sodium (Synthroid) 100 mcg PO DAILY@0630 [facility] Last Admin: 09/01/19 06:12 Dose: 100 mcg Ondansetron HCl (Zofran Odt) 4 mg PO Q4H PRN PRN Reason: nausea, able to take PO Polyethylene Glycol (Miralax) 17 gm PO DAILY PRN PRN Reason: Constipation Primidone (Mysoline) 50 mg PO BEDTIME [facility] Last Admin: 08/31/19 21:27 Dose: 50 mg Senna/Docusate Sodium (Senna Plus) 1 tab PO DAILY PRN PRN Reason: Constipation Sodium Chloride ([place] Nasal [place]) 0 ml FERNANDO Q4H PRN PRN Reason: Congestion Last Admin: 08/31/19 11:01 Dose: 1 spray Warfarin Sodium (Coumadin) 5 mg PO DAILY [facility] Last Admin: 08/31/19 09:10 Dose: 5 mg Discontinued Medications Enalapril Maleate (Vasotec) 2.5 mg PO BID [facility] Enoxaparin Sodium (Lovenox) 40 mg SUBCUT Q24H [facility] Last Admin: 08/30/19 08:15 Dose: 40 mg Sodium Chloride (Normal Saline) 1,000 mls @ 250 mls/hr IV .BOLUS ONE Stop: 08/29/19 23:43 Last Admin: 08/29/19 19:53 Dose: 250 mls/hr Sodium Chloride (Normal Saline) 1,000 mls @ 125 mls/hr IV ASDIRECTED [facility] Last Admin: 08/31/19 02:14 Dose: 125 mls/hr Levothyroxine Sodium (Synthroid) 100 mcg PO ACBREAKFAST [facility] Last Admin: 08/30/19 06:47 Dose: 100 mcg - Exam General: Alert, Oriented, Cooperative, No Acute Distress Lungs: Clear to Auscultation, Normal Respiratory Effort. No: Crackles, Wheezing Cardiovascular: Regular Rate, Regular Rhythm GI/Abdominal Exam: Normal Bowel Sounds, Soft, Non-Tender, No Distention Extremities: Normal Inspection, No Pedal Edema Sepsis Event Note - Evaluation Sepsis Screening Result: No Definite Risk - Focused Exam Vital Signs: Vital Signs Temp Pulse Resp BP Pulse Ox 09/01/19 04:51 37.1 C 91 16 131/59 L 94 L 08/31/19 23:10 36.2 C 87 17 131/65 94 L Date Exam was Performed: 09/01/19 Time Exam was Performed: 09:58 - Problem List Review Problem List Initiated/Reviewed/Updated: Yes - My Orders Last 24 Hours: My Active Orders 08/31/19 10:15 Iron Dextran Complex [Dexferrum] 100 mg Sodium Chloride 0.9% [Normal Saline] 250 ml IV DAILY 09/01/19 07:25 ALPRAZolam [Xanax] 1 mg PO DAILY PRN 09/01/19 07:28 Communication Order [RC] ROUTINE 09/01/19 07:29 Docusate Sodium/Sennosides [Senna Plus] 1 tab PO DAILY PRN 09/01/19 07:30 polyethylene glycoL 3350 [MiraLAX] 17 gm PO DAILY PRN 09/01/19 07:31 [employer] Discontinue [Cardiac Monitoring Discontinue] [RC] Click to Edit - Plan Plan:: A: 1. UTI 2. Ambulatory dysfunction s/p fall 3. Iron deficiency anemia P: 1. Overall, improving. Continue with ceftriaxone for UTI. Will get one dose of iron dextran for iron deficiency anemia. Pending FOBT. Restarted her home alprazolam. Plan to DC tomorrow to [facility] for rehab.
[2019-09-01] MEDS: Iron Dextran Complex 100 MG in Sodium Chloride 0.9% 250 ML IV SCH (10:05)
[2019-09-01] MEDS: Warfarin 5 MG Tab PO SCH (10:19)
[2019-09-01] MEDS: Carvedilol 3.125 MG Tab PO SCH ×2 (10:20→21:38)
[2019-09-01] MEDS: Sodium Chloride 0.65% Nasal Spray 45 ML Bottle NAS PRN (10:52)
[2019-09-01] MEDS: Primidone 50 MG Tab PO SCH (21:39)
[2019-09-01] MEDS: Gabapentin 300 MG Cap PO SCH (21:39)
[2019-09-01] MEDS: Acetaminophen 325 MG Tab PO PRN (22:00)
[2019-09-02] MEDS: Heparin Sodium 5,000 Units/ML Vial SUBCUT SCH (06:23)
[2019-09-02] MEDS: Levothyroxine 100 MCG Tab PO SCH (06:23)
[2019-09-02] MEDS: cefTRIAXone 1 GM in Premix Bag 1 BAG IV SCH (08:17)
[2019-09-02] MEDS: Carvedilol 3.125 MG Tab PO SCH (08:38)
[2019-09-02] MEDS: Warfarin 5 MG Tab PO SCH (08:39)
[2019-09-02 11:43] VITALS: BP 140/63; PULSE 80
--- NOTE | 2019-09-02 15:06 | PCM.DCSUM1 ---
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 She was admitted for acute kidney injury with Cr 2.5 and ambulatory dysfunction. She was found to have a UTI. She was hydrated with IV normal saline and started on Ceftriaxone. She did fairly well during this hospitalization. Her HEIDI had resolved and received 4 days of Ceftriaxone for her UTI. She was discharged to [facility] for further work with physical therapy and strengthening. She was advised to follow-up with her PCP in 1-2 weeks. - Discharge Data Discharge Date: 09/02/19 Discharge Disposition: DC/Tfer to SNF 03 Condition: Stable - Referral to Home Health Primary Care Physician: Kp Garcia MD - Patient Summary/Data Consults: Consultations 08/29/19 23:35 PT Evaluation and Treatment [CONS] Routine - Patient Instructions Diet: Regular Diet as Tolerated, Drink 8-10+ Glasses/Day Activity: As Tolerated Notify Provider of: Fever, Increased Pain, Swelling and Redness, Nausea and/or Vomiting Other/Special Instructions: Patient will need rehab, PT/OT. - Discharge Plan *PRESCRIPTION DRUG MONITORING PROGRAM REVIEWED*: Not Applicable *COPY OF PRESCRIPTION DRUG MONITORING REPORT IN PATIENT SARAH: Not Applicable Prescriptions/Med Rec: Iron Polysaccharide Complex [Myferon 150] 150 mg PO DAILY 30 Days #30 capsule Home Medications: Home Meds ALPRAZolam [Xanax XR] 1 mg PO DAILY PRN 10/19/17 [History] Calcium Carbonate [Calcium] 600 mg PO BID 10/19/17 [History] Cholecalciferol (Vitamin D3) [Vitamin D] 1,000 unit PO DAILY 10/19/17 [History] Enalapril [Vasotec] 2.5 mg PO BID 10/19/17 [History] Furosemide 40 mg PO BID 10/19/17 [History] Levothyroxine [Synthroid] 100 mcg PO DAILY 10/19/17 [History] Primidone 50 mg PO BEDTIME 10/19/17 [History] Warfarin [Coumadin] 5 mg PO DAILY 10/19/17 [History] carvediloL [Carvedilol] 3.125 mg PO BID 10/19/17 [History] Cyanocobalamin (Vitamin B-12) [Cyanocobalamin Injection] 1,000 mcg IM Q30D 08/29 [History] Gabapentin [Neurontin] 300 mg PO BEDTIME 08/29/19 [History] Potassium Chloride [Klor-Con M20] 20 meq PO BID 08/30/19 [History] Propranolol [Inderal] 10 mg PO QID 08/30/19 [History] rOPINIRole [Requip] 0.25 mg PO BEDTIME 08/30/19 [History] Iron Polysaccharide Complex [Myferon 150] 150 mg PO DAILY 30 Days #30 capsule [Rx] Patient Handouts: Fall Prevention in the Home, Adult, [id number], Iron tablets, capsules, extended-release tablets Referrals: Randy Mccallum MD [Physician] - - Discharge Summary/Plan Comment DC Time >30 min.: No - Patient Data Vitals - Most Recent: Last Vital Signs Temp 36.2 C 09/02/19 11:42 Pulse 80 09/02/19 11:42 Resp 18 09/02/19 11:42 BP 140/63 09/02/19 11:42 Pulse Ox 96 09/02/19 07:00 Orthostatic Blood Pressure [ 106/56 Standing] Orthostatic Blood Pressure [ 140/56 Sitting] Orthostatic Blood Pressure [ 134/79 Supine] Weight - Most Recent: 87.897 kg I&O - Last 24 hours: Intake & Output 09/02/19 09/02/19 09/02/19 06:59 14:59 22:59 Intake Total 800 Output Total 600 350 Balance 200 -350 Lab Results - Last 24 hrs: Laboratory Results - last 24 hr 09/02/19 Range/Units 05:10 INR 1.11 Med Orders - Current: Current Medications Acetaminophen (Tylenol) 650 mg PO Q4H PRN PRN Reason: Pain (Mild 1-3)/fever Last Admin: 09/01/19 22:00 Dose: 650 mg Hydrocodone Bitart/Acetaminophen ([place] 325-5 Mg) 1 tab PO Q6H PRN PRN Reason: Pain (moderate 4-6) Alprazolam (Xanax) 1 mg PO BEDTIME PRN PRN Reason: Anxiety Last Admin: 09/01/19 21:40 Dose: 1 mg Carvedilol (Coreg) 3.125 mg PO BID [facility] Last Admin: 09/02/19 08:38 Dose: 3.125 mg Gabapentin (Neurontin) 300 mg PO BEDTIME [facility] Last Admin: 09/01/19 21:39 Dose: 300 mg Heparin Sodium (Porcine) (Heparin Sodium) 5,000 units SUBCUT Q8H [facility] Last Admin: 09/02/19 06:23 Dose: 5,000 units Ceftriaxone Sodium/Dextrose 1 (gm/ Premix) 50 mls @ 100 mls/hr IV Q24H [facility] Last Admin: 09/02/19 08:17 Dose: 100 mls/hr Levothyroxine Sodium (Synthroid) 100 mcg PO DAILY@0630 [facility] Last Admin: 09/02/19 06:23 Dose: 100 mcg Ondansetron HCl (Zofran Odt) 4 mg PO Q4H PRN PRN Reason: nausea, able to take PO Polyethylene Glycol (Miralax) 17 gm PO DAILY PRN PRN Reason: Constipation Last Admin: 09/01/19 10:16 Dose: 17 gm Primidone (Mysoline) 50 mg PO BEDTIME [facility] Last Admin: 09/01/19 21:39 Dose: 50 mg Senna/Docusate Sodium (Senna Plus) 1 tab PO DAILY PRN PRN Reason: Constipation Sodium Chloride ([place] Nasal [employer]) 0 ml FERNANDO Q4H PRN PRN Reason: Congestion Last Admin: 09/01/19 10:52 Dose: 1 spray Warfarin Sodium (Coumadin) 5 mg PO DAILY [facility] Last Admin: 09/02/19 08:39 Dose: 5 mg Discontinued Medications Alprazolam (Xanax) 1 mg PO DAILY PRN PRN Reason: Anxiety Enalapril Maleate (Vasotec) 2.5 mg PO BID [facility] Enoxaparin Sodium (Lovenox) 40 mg SUBCUT Q24H [facility] Last Admin: 08/30/19 08:15 Dose: 40 mg Sodium Chloride (Normal Saline) 1,000 mls @ 250 mls/hr IV .BOLUS ONE Stop: 08/29/19 23:43 Last Admin: 08/29/19 19:53 Dose: 250 mls/hr Sodium Chloride (Normal Saline) 1,000 mls @ 125 mls/hr IV ASDIRECTED [facility] Last Admin: 08/31/19 02:14 Dose: 125 mls/hr Iron Dextran 100 mg/ Sodium (Chloride) 252 mls @ 42 mls/hr IV DAILY [facility] Stop: 09/01/19 14:59 Last Admin: 09/01/19 10:05 Dose: 42 mls/hr Levothyroxine Sodium (Synthroid) 100 mcg PO ACBREAKFAST [facility] Last Admin: 08/30/19 06:47 Dose: 100 mcg
== END 2019-09-02 15:00 | DRG 683 ==
LOC: MW.ED 17:29 → MW.MS 18:26 → OBSVTOIN 08-30 09:26
PROVIDERS: ADMIT Internal Medicine; ATTEND Internal Medicine
DX: N17.9 Acute kidney failure, unspecified (principal); I50.9 Heart failure, unspecified; Z86.718 Personal history of other venous thrombosis and embolism; Z86.711 Personal history of pulmonary embolism; M62.82 Rhabdomyolysis; N39.0 Urinary tract infection, site not specified; E03.9 Hypothyroidism, unspecified; Z98.49 Cataract extraction status, unspecified eye; R26.89 Other abnormalities of gait and mobility; E86.0 Dehydration; D50.9 Iron deficiency anemia, unspecified; W01.0XXA Fall on same level from slipping, tripping and stumbling without subsequent striking against object, initial encounter; Z96.649 Presence of unspecified artificial hip joint; Z96.659 Presence of unspecified artificial knee joint; Z88.6 Allergy status to analgesic agent; Z79.890 Hormone replacement therapy; Z79.01 Long term (current) use of anticoagulants; Y92.009 Unspecified place in unspecified non-institutional (private) residence as the place of occurrence of the external cause; Z87.891 Personal history of nicotine dependence; Z79.899 Other long term (current) drug therapy; M25.562 Pain in left knee; M25.561 Pain in right knee; W19.XXXA Unspecified fall, initial encounter
CPT/HCPCS: 36415 ×2; 70450; 72170; 73562 ×2; 80048; 80053; 81001; 82550 ×2; 85025 ×2; 85610; 87086; 93005; 96361 ×2; 96365; 96372; 99285; A9270 ×2; J0696; J1650; J7030 ×3; 82728; 83550; 96360; 97110-GP; 97161-GP; 97530-GP; 99283; J1644; J1750; J7050

== ENCOUNTER 2020-12-05 15:46 | Inpatient (IN) | payer MEDICARE, BC ==
[2020-12-05] MEDS ORDERED: Sodium Chloride 0.9% 10 ML Syringe FLUSH PRN (16:01)
[2020-12-05] MEDS ORDERED: cefTRIAXone 1 GM in Sodium Chloride 0.9% 100 ML IV ONE (16:01)
[2020-12-05] MEDS ORDERED: Sodium Chloride 0.9% 2.5 ML Syringe FLUSH PRN (16:01)
[2020-12-05] MEDS ORDERED: Sodium Chloride 0.9% 1,000 ML IV ONE ×2 (16:01→20:00)
--- NOTE | 2020-12-05 16:23 | EDM.PDOC ---
ED HPI GENERAL MEDICAL PROBLEM - General Chief Complaint: Neuro Symptoms/Deficits Stated Complaint: fall Time Seen by Provider: 12/05/20 15:50 Source of Information: Reports: EMS, Family - History of Present Illness INITIAL COMMENTS - FREE TEXT/NARRATIVE: 80-year-old female brought by EMS presenting initially for fall and weakness. Apparently the patient was at home, she lives alone, and she pressed her life alert button due to weakness after a fall. She does take anticoagulation and therefore she was activated as a trauma alert upon arrival here. However upon further clarification the patient reports she did not strike her head and her daughter who then arrived at the scene reports that she did not fall from bed nor strike her head. She reports actually she was concerned when she arrived at the patient's home because she thought the patient looked like she had some left-sided weakness. Patient lives alone. Her daughter checks on her every day. Apparently yesterday she took her out and they walked all around in route for a few hours. She last saw her normal at 2 PM yesterday. Today she checked on her at noon and the patient was sleeping so her daughter did not want to wake her up and let her sleep, then she went back and checked on her after the life alert button was activated and noted the weakness. Last normal was 2 PM yesterday. She takes warfarin. Her daughter does report that she is being treated for a UTI, just started antibiotics, although she is not sure of the medication and she thinks that her mother let it go too long. Initial vital signs the patient was tachycardic and febrile and mildly hypotensive. Onset: Today, Unknown/Unsure neck/ack Pain Score (Numeric/FACES): 4 Generalized Pain Score (Numeric/FACES): 4 - Related Data Allergies Allergy/AdvReac Type Severity Reaction Status Date / Time NSAIDS (Non-Steroidal Allergy Other Verified 12/05/20 23:03 Anti-Inflamma Home Meds: Home Meds ALPRAZolam [Xanax XR] 1 mg PO DAILY PRN 10/19/17 [History] Calcium Carbonate [Calcium] 600 mg PO BID 10/19/17 [History] Cholecalciferol (Vitamin D3) [Vitamin D] 1,000 unit PO DAILY 10/19/17 [History] Furosemide 40 mg PO BID 10/19/17 [History] Levothyroxine [Synthroid] 100 mcg PO DAILY 10/19/17 [History] Primidone 150 mg PO BEDTIME 10/19/17 [History] Warfarin [Coumadin] 5 mg PO SUTUTHSA 10/19/17 [History] carvediloL [Carvedilol] 3.125 mg PO BID 10/19/17 [History] Gabapentin [Neurontin] 300 mg PO BID 08/29/19 [History] Potassium Chloride [Klor-Con M20] 20 meq PO BID 08/30/19 [History] rOPINIRole [Requip] 0.5 mg PO BEDTIME 08/30/19 [History] Nitrofurantoin Juncos/Macrocryst [Nitrofurantoin Juncos-MCR] 100 mg PO BID 12/05/20 [History] Rosuvastatin Calcium 20 mg PO BEDTIME 12/05/20 [History] traMADol [Ultram] 50 mg PO TID PRN 12/05/20 [History] Warfarin [Coumadin] 2.5 mg PO MOWEFR 12/06/20 [History] Past Medical History HEENT History: Reports: Cataract Cardiovascular History: Reports: Blood Clots/VTE/DVT, Heart Failure Respiratory History: Reports: PE Gastrointestinal History: Reports: None Genitourinary History: Reports: None 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 Neurological History: Reports: None Psychiatric History: Reports: None Endocrine/Metabolic History: Reports: Hypothyroidism Hematologic History: Reports: Other (See Below) Other Hematologic History: blood clot Immunologic History: Reports: None Oncologic (Cancer) History: Reports: None Dermatologic History: Reports: None - Infectious Disease History Infectious Disease History: Reports: Chicken Pox, Measles, Mumps - Past Surgical History Head Surgeries/Procedures: Reports: None HEENT Surgical History: Reports: Cataract Surgery Musculoskeletal Surgical History: Reports: Hip Replacement, Knee Replacement Oncologic Surgical History: Reports: None Social & Family History - Family History Family Medical History: No Pertinent Family History - Caffeine Use Caffeine Use: Reports: Coffee ED ROS GENERAL - Review of Systems Review Of Systems: See Below Constitutional: Reports: Fever, Weakness Respiratory: Reports: No Symptoms Cardiovascular: Reports: No Symptoms Neurological: Reports: Weakness ED EXAM, GENERAL - Physical Exam Exam: See Below General Appearance: Alert, WD/WN, No Apparent Distress Eye Exam: Bilateral Eye: Other (EOMI) Ears: Normal External Exam Nose: 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 Patient confirms this) Neck: Normal Inspection Respiratory/Chest: No Respiratory Distress Cardiovascular: Tachycardia GI/Abdominal: Normal Bowel Sounds, Soft (Female) Exam: Deferred Rectal (Female) Exam: Deferred Back Exam: Normal Inspection, Full Range of Motion Extremities: Normal Inspection, Normal Capillary Refill Neurological: Alert, No Motor/Sensory Deficits (Unable to test gait due to generalized weakness. 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 She is able to hold both arms up for 10 seconds. She is able to lift both legs independently off the bed but unable to maintain for more than 3 seconds.), Confused, Disoriented, Slow to Respond, Other Psychiatric: Normal Affect, Normal Mood Skin Exam: Warm, Dry, Intact #1 Interpretation EKG Date: 12/05/20 Time: 16:37 Rhythm: NSR Rate (Beats/Min): 94 Mason: Normal P-Wave: Present QRS: Normal ST-T: Normal QT: Normal VA/PQ Interval: Prolonged VA interval Course - Vital Signs Text/Narrative:: Patient initially activated as trauma alert due to reported EMS fall on anticoagulation, however no signs of trauma and patient did not strike her head. Trauma alert deactivated. She was tachycardic and febrile on arrival here, therefore she was activated as a sepsis alert with possible source UTI. However daughter also ported left-sided weakness and therefore she was activated as a stroke alert. Initial noncontrast CT scan with no signs of ischemia or hemorrhage and the patient was last seen normal more than 24 hours ago and is on warfarin anticoagulation, therefore she is not within the window for TPA. I discussed this with the patient's daughters and son and they agree with this plan. Note: Due to [employer] downtime, chart edits were not saved during initial documentation time and therefore are entered after the fact. The patient had no white count elevation and UA does not appear acutely infected although her lactic is elevated. Patient is well-appearing and vital signs are stable except for slightly low blood pressure. After discussion with admitting physician CT abdomen/pelvis was added and signed out to oncoming physician at 7 PM, Dr. Sanabria for follow-up. The patient will be admitted. At the request of the admitting physician,Dr Bell., the patient will be admitted to the ICU, u nder inpatient status. Last Recorded V/S: Last Vital Signs Temp 99.1 F 12/06/20 08:00 Pulse 85 12/06/20 08:27 Resp 24 H 12/06/20 11:00 BP 132/69 12/06/20 11:00 Pulse Ox 96 12/06/20 11:00 - Orders/Labs/Meds Orders: Active Orders 24 hr Category Date Time Status Patient Status [ADT] Routine ADT 12/05/20 19:00 Active Communication Order [RC] PER UNIT ROUTINE Care 12/05/20 16:02 Active CULTURE BLOOD [BC] Stat Lab 12/05/20 15:55 Received CULTURE BLOOD [BC] Stat Lab 12/05/20 16:00 Results Sodium Chloride 0.9% [Saline Flush] Med 12/05/20 16:01 Active 10 ml FLUSH ASDIRECTED PRN Sodium Chloride 0.9% [Saline Flush] Med 12/05/20 16:01 Active 2.5 ml FLUSH ASDIRECTED PRN Blood Culture x2 Reflex Set [OM.PC] Stat Ot 12/05/20 16:01 Ordered ED Acute Ischemic Stroke Reflex [OM.PC] Click to Edit Ot 12/05/20 16:01 Ordered Saline Lock Insert [OM.PC] Stat Ot 12/05/20 16:01 Ordered Severe Sepsis Onset Time [OM.PC] Stat Ot 12/05/20 16:01 Ordered Medication Orders Acetaminophen (Acetaminophen 500 Mg Tab) 500 mg PO Q4H PRN PRN Reason: Fever Carvedilol (Carvedilol 3.125 Mg Tab) 3.125 mg PO BID [facility] Last Admin: 12/06/20 08:27 Dose: 3.125 mg Documented by: Admin: 12/05/20 22:49 Dose: 3.125 mg Documented by: GLADYS Gabapentin (Gabapentin 300 Mg Cap) 300 mg PO BID [facility] Last Admin: 12/06/20 08:28 Dose: 300 mg Documented by: Admin: 12/05/20 22:56 Dose: 300 mg Documented by: GLADYS Vancomycin HCl 1.25 gm/ Sodium (Chloride) 250 mls @ 166.667 mls/hr IV Q24H [facility] Lactated Ringer's (Ringers, Lactated) 1,000 mls @ 125 mls/hr IV ASDIRECTED [facility] Last Admin: 12/06/20 09:40 Dose: 125 mls/hr Documented by: Infusion: 12/06/20 08:10 Dose: 125 mls/hr Documented by: Admin: 12/06/20 00:10 Dose: 125 mls/hr Documented by: GLADYS Piperacillin Sod/Tazobactam (Sod 3.375 gm/ Sodium Chloride) 50 mls @ 100 mls/hr IV Q6H [facility] Last Admin: 12/06/20 14:26 Dose: 100 mls/hr Documented by: Infusion: 12/06/20 09:03 Dose: 100 mls/hr Documented by: Admin: 12/06/20 08:33 Dose: 100 mls/hr Documented by: CHRISTINA Levothyroxine Sodium (Levothyroxine 100 Mcg Tab) 100 mcg PO ACBRK [facility] Last Admin: 12/06/20 08:27 Dose: 100 mcg Documented by: CHRISTINA Ondansetron HCl (Ondansetron 4 Mg Tab.Dis) 4 mg PO Q6H PRN PRN Reason: nausea, able to take PO Primidone (Primidone 50 Mg Tab) 150 mg PO BEDTIME [facility] Last Admin: 12/05/20 22:50 Dose: 150 mg Documented by: GLADYS Ropinirole HCl (Ropinirole 0.5 Mg Tab) 0.5 mg PO BEDTIME [facility] Last Admin: 12/05/20 22:49 Dose: 0.5 mg Documented by: GLADYS Rosuvastatin Calcium (Rosuvastatin 10 Mg Tab) 20 mg PO BEDTIME [facility] Last Admin: 12/05/20 22:48 Dose: 20 mg Documented by: GLADYS Sodium Chloride (Sodium Chloride 0.9% 10 Ml Syringe) 10 ml FLUSH ASDIRECTED PRN PRN Reason: Keep Vein Open Last Admin: 12/05/20 16:50 Dose: 10 ml Documented by: RESHMA Sodium Chloride (Sodium Chloride 0.9% 2.5 Ml Syringe) 2.5 ml FLUSH ASDIRECTED PRN PRN Reason: Keep Vein Open Tramadol HCl (Tramadol 50 Mg Tab) 50 mg PO TID PRN PRN Reason: Pain Vancomycin HCl (Pharmacy To Dose - Vancomycin) 1 dose .XX ASDIRECTED [facility] Warfarin Sodium (Warfarin Ask Dosing) 1 each PO ASDIRECTED [facility] Warfarin Sodium (Warfarin 5 Mg Tab) 5 mg PO 12/06/20@1400 JAZMIN Stop: 12/06/20 16:00 Last Admin: 12/06/20 14:25 Dose: 5 mg Documented by: CHRISTINA Labs: Laboratory Tests 12/05/20 12/05/20 12/05/20 Range/Units 15:54 15:55 15:55 WBC 7.63 (4.0-11.0) K/uL RBC 3.87 L (4.30-5.90) M/uL Hgb 10.9 L (12.0-16.0) g/dL Hct 35.3 L (36.0-46.0) % MCV 91.2 (80.0-98.0) fL MCH 28.2 (27.0-32.0) pg MCHC 30.9 L (31.0-37.0) g/dL RDW Std Deviation 53.2 (28.0-62.0) fl RDW Coeff of Sebastien 16 H (11.0-15.0) % Plt Count 276 (150-400) K/uL MPV 10.30 (7.40-12.00) fL Neut % (Auto) 80.9 H (48.0-80.0) % Lymph % (Auto) 9.3 L (16.0-40.0) % Juncos % (Auto) 8.9 (0.0-15.0) % Eos % (Auto) 0.5 (0.0-7.0) % Baso % (Auto) 0.4 (0.0-1.5) % Neut # (Auto) 6.2 H (1.4-5.7) K/uL Lymph # (Auto) 0.7 (0.6-2.4) K/uL Juncos # (Auto) 0.7 (0.0-0.8) K/uL Eos # (Auto) 0.0 (0.0-0.7) K/uL Baso # (Auto) 0.0 (0.0-0.1) K/uL Nucleated RBC % 0.0 /100WBC Nucleated RBCs # 0 K/uL Sodium 141 (136-145) mmol/L Potassium 4.1 (3.5-5.1) mmol/L Chloride 102 (98-107) mmol/L Carbon Dioxide 29.8 (21.0-32.0) mmol/L BUN 11 (7.0-18.0) mg/dL Creatinine 1.3 H (0.6-1.0) mg/dL Est Cr Clr Drug Dosing 31.23 mL/min Estimated GFR (MDRD) 39.2 ml/min Glucose 128 H (74-106) mg/dL Lactic Acid (0.4-2.0) mmol/L Calcium 9.9 (8.5-10.1) mg/dL Total Bilirubin 0.4 (0.2-1.0) mg/dL AST 31 (15-37) IU/L ALT 18 (14-63) IU/L Alkaline Phosphatase 109 (46-116) U/L Troponin I (0.000-0.056) ng/mL Total Protein 7.4 (6.4-8.2) g/dL Albumin 3.2 L (3.4-5.0) g/dL Globulin 4.2 H (2.6-4.0) g/dL Albumin/Globulin Ratio 0.8 L (0.9-1.6) Urine Color YELLOW Urine Appearance CLEAR Urine pH 7.5 (5.0-8.0) Ur Specific Harrison 1.015 (1.001-1.035) Urine Protein NEGATIVE (NEGATIVE) mg/dL Urine Glucose (UA) NEGATIVE (NEGATIVE) mg/dL Urine Ketones NEGATIVE (NEGATIVE) mg/dL Urine Occult Blood TRACE-LYSED H (NEGATIVE) Urine Nitrite NEGATIVE (NEGATIVE) Urine Bilirubin NEGATIVE (NEGATIVE) Urine Urobilinogen 0.2 (<2.0) EU/dL Ur Leukocyte Esterase NEGATIVE (NEGATIVE) Urine RBC 0-2 (0-2/HPF) Urine WBC 0-2 (0-5/HPF) Ur Epithelial Cells RARE (NONE-FEW) Urine Bacteria FEW (NEGATIVE) 12/05/20 12/05/20 Range/Units 15:55 15:55 WBC (4.0-11.0) K/uL RBC (4.30-5.90) M/uL Hgb (12.0-16.0) g/dL Hct (36.0-46.0) % MCV (80.0-98.0) fL MCH (27.0-32.0) pg MCHC (31.0-37.0) g/dL RDW Std Deviation (28.0-62.0) fl RDW Coeff of Sebastien (11.0-15.0) % Plt Count (150-400) K/uL MPV (7.40-12.00) fL Neut % (Auto) (48.0-80.0) % Lymph % (Auto) (16.0-40.0) % Juncos % (Auto) (0.0-15.0) % Eos % (Auto) (0.0-7.0) % Baso % (Auto) (0.0-1.5) % Neut # (Auto) (1.4-5.7) K/uL Lymph # (Auto) (0.6-2.4) K/uL Juncos # (Auto) (0.0-0.8) K/uL Eos # (Auto) (0.0-0.7) K/uL Baso # (Auto) (0.0-0.1) K/uL Nucleated RBC % /100WBC Nucleated RBCs # K/uL Sodium (136-145) mmol/L Potassium (3.5-5.1) mmol/L Chloride (98-107) mmol/L Carbon Dioxide (21.0-32.0) mmol/L BUN (7.0-18.0) mg/dL Creatinine (0.6-1.0) mg/dL Est Cr Clr Drug Dosing mL/min Estimated GFR (MDRD) ml/min Glucose (74-106) mg/dL Lactic Acid 4.7 H* (0.4-2.0) mmol/L Calcium (8.5-10.1) mg/dL Total Bilirubin (0.2-1.0) mg/dL AST (15-37) IU/L ALT (14-63) IU/L Alkaline Phosphatase (46-116) U/L Troponin I < 0.050 (0.000-0.056) ng/mL Total Protein (6.4-8.2) g/dL Albumin (3.4-5.0) g/dL Globulin (2.6-4.0) g/dL Albumin/Globulin Ratio (0.9-1.6) Urine Color Urine Appearance Urine pH (5.0-8.0) Ur Specific Harrison (1.001-1.035) Urine Protein (NEGATIVE) mg/dL Urine Glucose (UA) (NEGATIVE) mg/dL Urine Ketones (NEGATIVE) mg/dL Urine Occult Blood (NEGATIVE) Urine Nitrite (NEGATIVE) Urine Bilirubin (NEGATIVE) Urine Urobilinogen (<2.0) EU/dL Ur Leukocyte Esterase (NEGATIVE) Urine RBC (0-2/HPF) Urine WBC (0-5/HPF) Ur Epithelial Cells (NONE-FEW) Urine Bacteria (NEGATIVE) Meds: Medications Generic Name Dose Route Start Last Admin Trade Name Freq PRN Reason Stop Dose Admin Acetaminophen 500 mg 12/05/20 19:38 Acetaminophen 500 Mg Tab PO Q4H PRN Fever Carvedilol 3.125 mg 12/05/20 21:00 12/06/20 08:27 Carvedilol 3.125 Mg Tab PO 3.125 mg BID JAZMIN Administration Gabapentin 300 mg 12/05/20 21:00 12/06/20 08:28 Gabapentin 300 Mg Cap PO 300 mg BID JAZMIN Administration Vancomycin HCl 1.25 gm/ Sodium 250 mls @ 166.667 mls/hr 12/06/20 17:00 Chloride IV Q24H JAZMIN Lactated Ringer's 1,000 mls @ 125 mls/hr 12/05/20 23:45 12/06/20 09:40 Ringers, Lactated IV 125 mls/hr ASDIRECTED JAZMIN Administration Piperacillin Sod/Tazobactam 50 mls @ 100 mls/hr 12/06/20 09:00 12/06/20 14:26 Sod 3.375 gm/ Sodium Chloride IV 100 mls/hr Q6H JAZMIN Administration Levothyroxine Sodium 100 mcg 12/06/20 07:30 12/06/20 08:27 Levothyroxine 100 Mcg Tab PO 100 mcg ACBRK JAZMIN Administration Ondansetron HCl 4 mg 12/05/20 19:30 Ondansetron 4 Mg Tab.Dis PO Q6H PRN nausea, able to take PO Primidone 150 mg 12/05/20 21:00 12/05/20 22:50 Primidone 50 Mg Tab PO 150 mg BEDTIME JAZMIN Administration Ropinirole HCl 0.5 mg 12/05/20 21:00 12/05/20 22:49 Ropinirole 0.5 Mg Tab PO 0.5 mg BEDTIME JAZMIN Administration Rosuvastatin Calcium 20 mg 12/05/20 21:00 12/05/20 22:48 Rosuvastatin 10 Mg Tab PO 20 mg BEDTIME JAZMIN Administration Sodium Chloride 10 ml 12/05/20 16:01 12/05/20 16:50 Sodium Chloride 0.9% 10 Ml Syringe FLUSH 10 ml ASDIRECTED PRN Administration Keep Vein Open Sodium Chloride 2.5 ml 12/05/20 16:01 Sodium Chloride 0.9% 2.5 Ml Syringe FLUSH ASDIRECTED PRN Keep Vein Open Tramadol HCl 50 mg 12/05/20 19:34 Tramadol 50 Mg Tab PO TID PRN Pain Vancomycin HCl 1 dose 12/05/20 20:15 Pharmacy To Dose - Vancomycin .XX ASDIRECTED JAZMIN Warfarin Sodium 1 each 12/05/20 23:45 Warfarin Ask Dosing PO ASDIRECTED JAZMIN Warfarin Sodium 5 mg 12/06/20 14:00 12/06/20 14:25 Warfarin 5 Mg Tab PO 12/06/20 16:00 5 mg 12/06/20@1400 JAZMIN Administration Discontinued Medications Generic Name Dose Route Start Last Admin Trade Name Freq PRN Reason Stop Dose Admin Ceftriaxone Sodium Confirm 12/05/20 16:46 12/05/20 16:50 Ceftriaxone 1 Gm Vial Administered 12/05/20 16:47 Not Given Dose 1 gm .ROUTE .STK-MED ONE Sodium Chloride 1,000 mls @ 999 mls/hr 12/05/20 16:01 12/05/20 16:48 Normal Saline IV 12/05/20 17:01 999 mls/hr BOLUS ONE Administration Protocol Ceftriaxone Sodium/Dextrose 50 mls @ 100 mls/hr 12/05/20 16:45 12/05/20 16:49 Rocephin In Dextrose,Iso-Osm 1 Gm/50 Ml IV 12/05/20 17:14 100 mls/hr ONETIME ONE Administration Vancomycin HCl 1 gm/ Sodium 250 mls @ 166 mls/hr 12/05/20 19:21 12/05/20 20:08 Chloride IV 12/05/20 20:51 166 mls/hr ONETIME ONE Administration Sodium Chloride 1,000 mls @ 999 mls/hr 12/05/20 20:00 12/05/20 20:07 Normal Saline IV 12/05/20 21:00 999 mls/hr STAT ONE Administration Piperacillin Sod/Tazobactam 100 mls @ 100 mls/hr 12/05/20 20:15 12/05/20 20:23 Sod 4.5 gm/ Sodium Chloride IV Not Given Q8H JAZMIN Piperacillin Sod/Tazobactam 50 mls @ 100 mls/hr 12/05/20 21:00 12/06/20 03:23 Sod 2.25 gm/ Sodium Chloride IV 100 mls/hr Q6H JAZMIN Administration Magnesium Sulfate 2 gm/ Premix 50 mls @ 12.5 mls/hr 12/06/20 09:00 12/06/20 09:41 IV 12/06/20 12:59 12.5 mls/hr ONETIME ONE Administration Iopamidol 100 ml 12/05/20 21:33 12/05/20 21:33 Iopamidol 755 Mg/Ml 100 Ml Bottle IVPUSH 12/05/20 21:34 100 ml ONETIME ONE Administration Omeprazole 20 mg 12/06/20 08:59 12/06/20 09:41 Omeprazole 20 Mg Cap.Cr PO 12/06/20 09:00 20 mg ONETIME ONE Administration Potassium Chloride 40 meq 12/06/20 08:11 12/06/20 08:28 Potassium Chloride 20 Meq Tab.Er PO 12/06/20 08:12 40 meq ONETIME ONE Administration - Re-Assessments/Exams Free Text/Narrative Re-Assessment/Exam: 12/05/20 16:20 I updated the patient's daughters and her son via telephone (who is a assistant case manager here) on the preliminary Noncon CT scan wet read. Discussed plan and recommendation for admission. Discussed CODE STATUS: The patient is a DNR/DNI as confirmed by the son who is the power of assistant district attorney and both daughters. 12/05/20 18:35 Updated the patient and family on the plan. I reassessed the patient. Her neurologic status is unchanged, no focalized weakness seen. Repeat stroke scale 0. 12/05/20 18:41 Case discussed with admitting hospitalist, Dr. Bell who agrees with plan for admission and request to broaden the antibiotic coverage with vancomycin and Zosyn. She does request to admit the patient to the ICU and request to do a CT abdomen/pelvis to evaluate for occult sepsis as the patient lactic is elevated although she is not having any abdominal pain. 12/05/20 19:00 The computer system and EMR is downtime, reassessments were not saved, and therefore documentation has been entered /completed after patient departure. Due to the downtime, medications and imaging studies were not able to be ordered. Medications were discussed with the nurses who will attempt to override and the case was signed over to Dr. Sanabria who will order the vancomycin, Zosyn and CT scan once able to. Departure - Departure Time of Disposition: 18:40 Disposition: Admitted As Inpatient 64 Clinical Impression: Sepsis, Weakness - Discharge Information Sepsis Event Note (ED) - Evaluation Sepsis Screening Result: No Definite Risk - My Orders Last 24 Hours: My Active Orders 12/05/20 15:55 CULTURE BLOOD [BC] Stat 12/05/20 16:00 CULTURE BLOOD [BC] Stat 12/05/20 16:01 Sodium Chloride 0.9% [Saline Flush] 10 ml FLUSH ASDIRECTED PRN Sodium Chloride 0.9% [Saline Flush] 2.5 ml FLUSH ASDIRECTED PRN Blood Culture x2 Reflex Set [OM.PC] Stat ED Acute Ischemic Stroke Reflex [OM.PC] Click to Edit Saline Lock Insert [OM.PC] Stat Severe Sepsis Onset Time [OM.PC] Stat 12/05/20 16:02 Communication Order [RC] PER UNIT ROUTINE 12/05/20 19:00 Patient Status [ADT] Routine - Assessment/Plan Last 24 Hours: My Active Orders 12/05/20 15:55 CULTURE BLOOD [BC] Stat 12/05/20 16:00 CULTURE BLOOD [BC] Stat 12/05/20 16:01 Sodium Chloride 0.9% [Saline Flush] 10 ml FLUSH ASDIRECTED PRN Sodium Chloride 0.9% [Saline Flush] 2.5 ml FLUSH ASDIRECTED PRN Blood Culture x2 Reflex Set [OM.PC] Stat ED Acute Ischemic Stroke Reflex [OM.PC] Click to Edit Saline Lock Insert [OM.PC] Stat Severe Sepsis Onset Time [OM.PC] Stat 12/05/20 16:02 Communication Order [RC] PER UNIT ROUTINE 12/05/20 19:00 Patient Status [ADT] Routine
--- NOTE | 2020-12-05 16:37 | CT ---
INDICATION: AMS, SLURRED SPEECH TECHNIQUE: CT of the head without contrast. Coronal and sagittal reformats. Bone and soft tissue algorithms. COMPARISON: 08/29/2019 CT FINDINGS: No acute intracranial hemorrhage or extra-axial collection. No evidence of acute cortical infarction. No mass effect or midline shift. Mild generalized cerebral/cerebellar parenchymal volume loss. Mild regions of decreased attenuation within the periventricular and subcortical white matter of both cerebral hemispheres most likely reflects chronic microvascular ischemic disease and age related change in this patient. Vascular calcifications within the carotid siphons. Orbital contents are normal. No calvarial fractures. No lytic or sclerotic osseous lesions within the calvarium or skull base. Incidental left frontal inner table osteoma without significant mass effect on the underlying brain parenchyma. Scalp and other imaged soft tissue structures are normal. Mastoid air cells are clear. Pannus formation posterior to the dens. IMPRESSION: No acute intracranial abnormality. No significant change compared to the 08/29/2019 CT head. Please note that all CT scans at this facility use dose modulation, iterative reconstruction, and/or weight-based dosing when appropriate to reduce radiation dose to as low as reasonably achievable. Dictated by Bebeto Lou MD @ 12/05/2020 4:36:[address] Bebeto Lou @ Dec 05 2020 4:36PM
[2020-12-05] MEDS ORDERED: cefTRIAXone 1 GM Vial ONE (16:46)
[2020-12-05 16:50] LABS: CARBON DIOXIDE,CO2 29.8 mmol/L (21.0-32.0); POTASSIUM,K 4.1 mmol/L (3.5-5.1)
--- NOTE | 2020-12-05 17:34 | CT ---
DATE: 12/05/2020 CLINICAL HISTORY: Patient with slurred speech. TECHNIQUE: Standard helical CT image acquisition through the head and neck was performed after intravenous contrast bolus enhancement. Multiplanar reconstructed images were performed and interpreted. COMPARISON: CT same day FINDINGS: Images are degraded by patient motion. There is no proximal intracranial large vessel occlusion. The origins of the great vessels from the aortic arch are patent. The origin of the right vertebral artery is patent. The origin of the left vertebral artery is patent. The common carotid arteries are patent There is no stenosis at the origin of the right internal carotid artery. There is no stenosis at the origin of the left internal carotid artery. The rest of the cervical segments of the internal carotid arteries are patent up to their intracranial segments. The intracranial segments of the internal carotid arteries are patent. The right vertebral artery is dominant. The cervical segments of the vertebral arteries are patent. The intracranial segments of the vertebral arteries are patent. The middle cerebral arteries are normal without aneurysm or proximal occlusion identified. The anterior cerebral arteries are normal without aneurysm or proximal occlusion identified. The anterior communicating artery is well visualized and appears normal. The basilar artery is normal without aneurysm or occlusion. The posterior cerebral arteries are normal without aneurysm or proximal occlusion. There is normal opacification of major intracranial venous structures. The visualized lung apices are unremarkable The thyroid gland is unremarkable. The soft tissues of the neck are unremarkable. There are degenerative changes in the cervical spine. IMPRESSION: Images are degraded by patient motion. Grossly patent cervical and proximal intracranial vasculature. Please note that all CT scans at this facility use dose modulation, iterative reconstruction, and/or weight-based dosing when appropriate to reduce radiation dose to as low as reasonably achievable. Dictated by Daisy Kaur MD @ 12/05/2020 9:30:[address] Daisy Kaur @ Dec 05 2020 9:30PM
--- NOTE | 2020-12-05 17:38 | CR ---
HISTORY: Sepsis with stroke. COMPARISON: Chest two views from 05/12/2019 FINDINGS: A portable erect AP view of the chest was obtained at 1646 hours. There continues to be mild prominence of interstitial markings throughout the lungs consistent with mild pulmonary fibrosis. Chest is otherwise clear. The heart remains normal in size. There is stable mild tortuosity of the descending thoracic aorta. The mediastinum is otherwise normal in appearance. The osseous structures are normal in appearance for the patient`s age. IMPRESSION: No active disease seen in the chest. Stable appearance of mild pulmonary fibrosis. Dictated by Edouard Ricks MD @ 12/05/2020 5:37:[address] Edouard Ricks @ Dec 05 2020 5:37PM
[2020-12-05] MEDS ORDERED: Piperacillin/Tazobactam 3.375 GM in Sodium Chloride 0.9% 50 ML IV ONE (19:21)
[2020-12-05] MEDS ORDERED: Ondansetron 4 MG Tab.DIS PO PRN (19:30)
[2020-12-05] MEDS ORDERED: traMADol 50 MG Tab PO PRN (19:34)
--- NOTE | 2020-12-05 19:37 | PCM.HP.2 ---
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 Patient lives alone and had pressed her life alert button due to weakness after a fall. Patient was brought to the ED via EMS. Patient reported to ED provider have not struck her head and after her daughter had come by to check up on the patient and noticed some left-sided weakness. Per ED note last normal was at 2 PM yesterday. Of note patient is also currently being treated for UTI but cannot recall the name of the medication. ED course: Head CT: No acute intracranial abnormality. No significant change compared to 08/29/2019 CT head Head CTA: No proximal large vessel occlusion or cervical arterial stenosis Neck CTA: No proximal large vessel occlusion or cervical arterial or stenosis Chest x-ray: No active disease seen in the chest. Stable appearance of mild pulmonary fibrosis. Vitals 141/61. Pulse 86. Temperature 102. 98% room air. Labs: Hemoglobin 10.9 Creatinine 1.3. Lactic acid 4.7. UA negative. Bedside: Endorses similar story as above. Reviewed notes from outpatient facility. Had endorsed fatigue, weakness and UTI symptoms along with some pelvic discomfort. UA positive and patient was started on nitrofurantoin Urine cultures suggesting Aerococcus viridans/Enterococcus urinary on November 29, 2020 neck/ack Pain Score (Numeric/FACES): 4 Generalized Pain Score (Numeric/FACES): 4 - Related Data Allergies/Adverse Reactions: Allergies Allergy/AdvReac Type Severity Reaction Status Date / Time NSAIDS (Non-Steroidal Allergy Other Verified 12/05/20 23:03 Anti-Inflamma Home Medications: Home Meds ALPRAZolam [Xanax XR] 1 mg PO DAILY PRN 10/19/17 [History] Calcium Carbonate [Calcium] 600 mg PO BID 10/19/17 [History] Cholecalciferol (Vitamin D3) [Vitamin D] 1,000 unit PO DAILY 10/19/17 [History] Furosemide 40 mg PO BID 10/19/17 [History] Levothyroxine [Synthroid] 100 mcg PO DAILY 10/19/17 [History] Primidone 150 mg PO BEDTIME 10/19/17 [History] Warfarin [Coumadin] 5 mg PO DAILY 10/19/17 [History] carvediloL [Carvedilol] 3.125 mg PO BID 10/19/17 [History] Gabapentin [Neurontin] 300 mg PO BID 08/29/19 [History] Potassium Chloride [Klor-Con M20] 20 meq PO BID 08/30/19 [History] rOPINIRole [Requip] 0.5 mg PO BEDTIME 08/30/19 [History] Nitrofurantoin Cobb/Macrocryst [Nitrofurantoin Cobb-MCR] 100 mg PO BID 12/05/20 [History] Rosuvastatin Calcium 20 mg PO BEDTIME 12/05/20 [History] traMADol [Ultram] 50 mg PO TID PRN 12/05/20 [History] Warfarin [Coumadin] 2.5 mg PO MOWEFR 12/06/20 [History] Past Medical History HEENT History: Reports: Cataract Cardiovascular History: Reports: Blood Clots/VTE/DVT, Heart Failure Respiratory History: Reports: PE Gastrointestinal History: Reports: None Genitourinary History: Reports: None HUMAN RESOURCE ASSISTANT History: Reports: None Neurological History: Reports: None Psychiatric History: Reports: None Endocrine/Metabolic History: Reports: Hypothyroidism Hematologic History: Reports: Other (See Below) Other Hematologic History: blood clot Immunologic History: Reports: None Oncologic (Cancer) History: Reports: None Dermatologic History: Reports: None - Infectious Disease History Infectious Disease History: Reports: Chicken Pox, Measles, Mumps - Past Surgical History Head Surgeries/Procedures: Reports: None HEENT Surgical History: Reports: Cataract Surgery Musculoskeletal Surgical History: Reports: Hip Replacement, Knee Replacement Oncologic Surgical History: Reports: None Social & Family History - Family History Family Medical History: No Pertinent Family History - Tobacco Use Tobacco Use Status *Q: Unknown Ever Used Tobacco - Caffeine Use Caffeine Use: Reports: Coffee H&P Review of Systems - Review of Systems: Review Of Systems: See Below General: Reports: Weakness, Fatigue. Denies: Fever, Chills, Malaise HEENT: Reports: No Symptoms Pulmonary: Reports: No Symptoms Cardiovascular: Reports: No Symptoms Gastrointestinal: Reports: Constipation. Denies: Diarrhea Genitourinary: Reports: Burning Musculoskeletal: Reports: No Symptoms Psychiatric: Reports: Depression Neurological: Reports: Pre-Existing Deficit Exam - Exam Exam: See Below - Vital Signs Vital Signs: Last Vital Signs Temp 100.7 F H 12/05/20 18:59 Pulse 82 12/05/20 18:59 Resp 20 12/05/20 18:59 BP 128/72 12/05/20 18:59 Pulse Ox 94 L 12/05/20 18:59 Weight: 77.111 kg - Exam Quality Assessment: Supplemental Oxygen General: Alert, Oriented, Cooperative HEENT: EOMI Lungs: Clear to Auscultation, Normal Respiratory Effort Cardiovascular: Regular Rate, Regular Rhythm GI/Abdominal Exam: Soft, Non-Tender Extremities: Normal Inspection Neurological: Strength Equal Bilateral, Other (notable resting tremor ; chronic; no obvious defecits ; strength upper/lower intact .... mild memory lapses noted during examination ) Neuro Extensive - Motor, Sensory, Reflexes: CN II-XII Intact. No: Tongue Deviation (L), Tongue Deviation (R), Facial palsy (L) Psychiatric: Alert - Patient Data Lab Results Last 24 hrs: Laboratory Results - last 24 hr 12/05/20 12/05/20 12/05/20 Range/Units 15:54 15:55 15:55 WBC 7.63 (4.0-11.0) K/uL RBC 3.87 L (4.30-5.90) M/uL Hgb 10.9 L (12.0-16.0) g/dL Hct 35.3 L (36.0-46.0) % MCV 91.2 (80.0-98.0) fL MCH 28.2 (27.0-32.0) pg MCHC 30.9 L (31.0-37.0) g/dL RDW Std Deviation 53.2 (28.0-62.0) fl RDW Coeff of Sebastien 16 H (11.0-15.0) % Plt Count 276 (150-400) K/uL MPV 10.30 (7.40-12.00) fL Neut % (Auto) 80.9 H (48.0-80.0) % Lymph % (Auto) 9.3 L (16.0-40.0) % Cobb % (Auto) 8.9 (0.0-15.0) % Eos % (Auto) 0.5 (0.0-7.0) % Baso % (Auto) 0.4 (0.0-1.5) % Neut # (Auto) 6.2 H (1.4-5.7) K/uL Lymph # (Auto) 0.7 (0.6-2.4) K/uL Cobb # (Auto) 0.7 (0.0-0.8) K/uL Eos # (Auto) 0.0 (0.0-0.7) K/uL Baso # (Auto) 0.0 (0.0-0.1) K/uL Nucleated RBC % 0.0 /100WBC Nucleated RBCs # 0 K/uL Sodium 141 (136-145) mmol/L Potassium 4.1 (3.5-5.1) mmol/L Chloride 102 (98-107) mmol/L Carbon Dioxide 29.8 (21.0-32.0) mmol/L BUN 11 (7.0-18.0) mg/dL Creatinine 1.3 H (0.6-1.0) mg/dL Est Cr Clr Drug Dosing 31.23 mL/min Estimated GFR (MDRD) 39.2 ml/min Glucose 128 H (74-106) mg/dL Lactic Acid (0.4-2.0) mmol/L Calcium 9.9 (8.5-10.1) mg/dL Total Bilirubin 0.4 (0.2-1.0) mg/dL AST 31 (15-37) IU/L ALT 18 (14-63) IU/L Alkaline Phosphatase 109 (46-116) U/L Total Protein 7.4 (6.4-8.2) g/dL Albumin 3.2 L (3.4-5.0) g/dL Globulin 4.2 H (2.6-4.0) g/dL Albumin/Globulin Ratio 0.8 L (0.9-1.6) Urine Color YELLOW Urine Appearance CLEAR Urine pH 7.5 (5.0-8.0) Ur Specific [place] 1.015 (1.001-1.035) Urine Protein NEGATIVE (NEGATIVE) mg/dL Urine Glucose (UA) NEGATIVE (NEGATIVE) mg/dL Urine Ketones NEGATIVE (NEGATIVE) mg/dL Urine Occult Blood TRACE-LYSED H (NEGATIVE) Urine Nitrite NEGATIVE (NEGATIVE) Urine Bilirubin NEGATIVE (NEGATIVE) Urine Urobilinogen 0.2 (<2.0) EU/dL Ur Leukocyte Esterase NEGATIVE (NEGATIVE) Urine RBC 0-2 (0-2/HPF) Urine WBC 0-2 (0-5/HPF) Ur Epithelial Cells RARE (NONE-FEW) Urine Bacteria FEW (NEGATIVE) 12/05/20 Range/Units 15:55 WBC (4.0-11.0) K/uL RBC (4.30-5.90) M/uL Hgb (12.0-16.0) g/dL Hct (36.0-46.0) % MCV (80.0-98.0) fL MCH (27.0-32.0) pg MCHC (31.0-37.0) g/dL RDW Std Deviation (28.0-62.0) fl RDW Coeff of Sebastien (11.0-15.0) % Plt Count (150-400) K/uL MPV (7.40-12.00) fL Neut % (Auto) (48.0-80.0) % Lymph % (Auto) (16.0-40.0) % Cobb % (Auto) (0.0-15.0) % Eos % (Auto) (0.0-7.0) % Baso % (Auto) (0.0-1.5) % Neut # (Auto) (1.4-5.7) K/uL Lymph # (Auto) (0.6-2.4) K/uL Cobb # (Auto) (0.0-0.8) K/uL Eos # (Auto) (0.0-0.7) K/uL Baso # (Auto) (0.0-0.1) K/uL Nucleated RBC % /100WBC Nucleated RBCs # K/uL Sodium (136-145) mmol/L Potassium (3.5-5.1) mmol/L Chloride (98-107) mmol/L Carbon Dioxide (21.0-32.0) mmol/L BUN (7.0-18.0) mg/dL Creatinine (0.6-1.0) mg/dL Est Cr Clr Drug Dosing mL/min Estimated GFR (MDRD) ml/min Glucose (74-106) mg/dL Lactic Acid 4.7 H* (0.4-2.0) mmol/L Calcium (8.5-10.1) mg/dL Total Bilirubin (0.2-1.0) mg/dL AST (15-37) IU/L ALT (14-63) IU/L Alkaline Phosphatase (46-116) U/L Total Protein (6.4-8.2) g/dL Albumin (3.4-5.0) g/dL Globulin (2.6-4.0) g/dL Albumin/Globulin Ratio (0.9-1.6) Urine Color Urine Appearance Urine pH (5.0-8.0) Ur Specific [place] (1.001-1.035) Urine Protein (NEGATIVE) mg/dL Urine Glucose (UA) (NEGATIVE) mg/dL Urine Ketones (NEGATIVE) mg/dL Urine Occult Blood (NEGATIVE) Urine Nitrite (NEGATIVE) Urine Bilirubin (NEGATIVE) Urine Urobilinogen (<2.0) EU/dL Ur Leukocyte Esterase (NEGATIVE) Urine RBC (0-2/HPF) Urine WBC (0-5/HPF) Ur Epithelial Cells (NONE-FEW) Urine Bacteria (NEGATIVE) Result Diagrams: 12/06/20 06:15 12/06/20 06:15 Brando Results Last 24 hrs: Microbiology 12/05/20 16:00 Anaerobic Blood Culture - Final Blood - Venous - Lab Draw Sepsis Event Note - Evaluation Sepsis Screening Result: No Definite Risk - Focused Exam Vital Signs: Vital Signs Temp Pulse Resp BP Pulse Ox 12/05/20 18:59 100.7 F H 82 20 128/72 94 L 12/05/20 18:00 100.8 F H 81 20 138/81 93 L 12/05/20 16:57 102 F H 86 20 141/61 H 98 12/05/20 16:54 130/68 12/05/20 15:57 102 F H 89 20 109/54 L 98 - Problem List (1) Weakness SNOMED Code(s): 30891121 ICD Code: R53.1 - WEAKNESS Status: Acute Current Visit: Yes (2) Fall SNOMED Code(s): 5964282, 679669516 ICD Code: W19.XXXA - UNSPECIFIED FALL, INITIAL ENCOUNTER Status: Acute Current Visit: Yes (3) UTI (urinary tract infection) SNOMED Code(s): 55739415 ICD Code: N39.0 - URINARY TRACT INFECTION, SITE NOT SPECIFIED Status: Acute Current Visit: Yes (4) Familial tremor SNOMED Code(s): 773915947 ICD Code: G25.0 - ESSENTIAL TREMOR Status: Acute Current Visit: Yes (5) Acute kidney injury SNOMED Code(s): 79773387, 75608473 ICD Code: N17.9 - ACUTE KIDNEY FAILURE, UNSPECIFIED Status: Acute Current Visit: No (6) CHF (congestive heart failure) SNOMED Code(s): 62171260 ICD Code: I50.9 - HEART FAILURE, UNSPECIFIED Status: Chronic Priority: Medium Current Visit: No (7) HTN (hypertension) SNOMED Code(s): 44867996 ICD Code: I10 - ESSENTIAL (PRIMARY) HYPERTENSION Status: Chronic Priority: Medium Current Visit: No Qualifiers: Hypertension type: essential hypertension Qualified Code(s): I10 - Essential (primary) hypertension Problem List Initiated/Reviewed/Updated: Yes Orders Last 24hrs: Active Orders 24 hr Category Date Time Status Patient Status [ADT] Routine ADT 12/05/20 19:00 Active Antiembolic Devices [RC] PER UNIT ROUTINE Care 12/05/20 19:32 Ordered Blood Pressure Mgt: Sepsis [RC] [id number] Care 12/05/20 16:02 Active Communication Order [RC] PER UNIT ROUTINE Care 12/05/20 16:02 Active Oxygen Therapy [RC] PRN Care 12/05/20 19:30 Ordered Up With Assistance [RC] ASDIRECTED Care 12/05/20 19:30 Ordered VTE/DVT Education [RC] PER UNIT ROUTINE Care 12/05/20 19:30 Ordered Vital Signs [RC] Q4H Care 12/05/20 19:30 Ordered PT Evaluation and Treatment [CONS] Routine Cons 12/05/20 19:30 Ordered Heart Healthy Diet [DIET] Diet 12/05/20 Breakfast Ordered Abdomen Pelvis w Cont [CT] Routine Exams 12/05/20 19:21 Stop Req Abdomen Pelvis wo Cont [CT] Routine Exams 12/05/20 19:29 Ordered CBC WITH AUTO DIFF [HEME] AM Lab 12/06/20 05:11 Ordered CBC WITH AUTO DIFF [HEME] AM Lab 12/07/20 05:11 Ordered CBC WITH AUTO DIFF [HEME] AM Lab 12/08/20 05:11 Ordered COMPREHENSIVE METABOLIC PN,CMP [CHEM] AM Lab 12/06/20 05:11 Ordered COMPREHENSIVE METABOLIC PN,CMP [CHEM] AM Lab 12/07/20 05:11 Ordered COMPREHENSIVE METABOLIC PN,CMP [CHEM] AM Lab 12/08/20 05:11 Ordered CORONAVIRUS COVID-19 DEISI [MOLEC] Stat Lab 12/05/20 18:59 Ordered CULTURE BLOOD [BC] Stat Lab 12/05/20 15:55 Received CULTURE BLOOD [BC] Stat Lab 12/05/20 16:00 Results REFLEX LACTIC ACID YES OR NO [CHEM] Routine Lab 12/05/20 16:37 Received TROPONIN I [CHEM] Stat Lab 12/05/20 18:59 Ordered UA RFX BRANDO AND CULT IF INDIC [URIN] Stat Lab 12/05/20 15:58 Ordered Gabapentin [Neurontin] Med 12/05/20 21:00 Ordered 300 mg PO BID Levothyroxine [Synthroid] Med 12/06/20 09:00 Ordered 100 mcg PO DAILY Ondansetron [Zofran ODT] Med 12/05/20 19:30 Ordered 4 mg PO Q6H PRN Piperacillin/Tazobactam [Piperacil-Tazobact] 3.375 gm Med 12/05/20 19:21 Active Sodium Chloride 0.9% [Normal Saline] 50 ml IV ONETIME Primidone [Mysoline] Med 12/05/20 21:00 Ordered 150 mg PO BEDTIME Rosuvastatin Calcium [Rosuvastatin Calcium] Med 12/05/20 21:00 Ordered 20 mg PO BEDTIME Sodium Chloride 0.9% [Saline Flush] Med 12/05/20 16:01 Active 10 ml FLUSH ASDIRECTED PRN Sodium Chloride 0.9% [Saline Flush] Med 12/05/20 16:01 Active 2.5 ml FLUSH ASDIRECTED PRN Vancomycin 1 gm Med 12/05/20 19:21 Active Sodium Chloride 0.9% [Normal Saline (AdvBag)] 250 ml IV ONETIME carvediloL [Coreg] Med 12/05/20 21:00 Ordered 3.125 mg PO BID rOPINIRole Med 12/05/20 21:00 Ordered 0.5 mg PO BEDTIME traMADol [Ultram] Med 12/05/20 19:34 Ordered 50 mg PO TID PRN Blood Culture x2 Reflex Set [OM.PC] Stat Oth 12/05/20 16:01 Ordered ED Acute Ischemic Stroke Reflex [OM.PC] Click to Edit [facility] 12/05/20 16:01 Ordered Saline Lock Insert [OM.PC] Stat [facility] 12/05/20 16:01 Ordered Sequential Compression Device [OM.PC] Per Unit Routine [facility] 12/05/20 19:30 Ordered Severe Sepsis Onset Time [OM.PC] Stat [facility] 12/05/20 16:01 Ordered Resuscitation Status Routine Resus Stat 12/05/20 19:30 Ordered Medication Orders Piperacillin Sod/Tazobactam (Sod 3.375 gm/ Sodium Chloride) 50 mls @ 100 mls/hr IV ONETIME ONE Stop: 12/05/20 19:50 Vancomycin HCl 1 gm/ Sodium (Chloride) 250 mls @ 166 mls/hr IV ONETIME ONE Stop: 12/05/20 20:51 Ondansetron HCl (Ondansetron 4 Mg Tab.Dis) 4 mg PO Q6H PRN PRN Reason: nausea, able to take PO Sodium Chloride (Sodium Chloride 0.9% 10 Ml Syringe) 10 ml FLUSH ASDIRECTED PRN PRN Reason: Keep Vein Open Last Admin: 12/05/20 16:50 Dose: 10 ml Documented by: RESHMA Sodium Chloride (Sodium Chloride 0.9% 2.5 Ml Syringe) 2.5 ml FLUSH ASDIRECTED PRN PRN Reason: Keep Vein Open Assessment/Plan Comment:: Assessment: 1. Sepsis in setting of possible UTI. 2. Weakness/unwitnessed fall while on anticoagulation 3. Elevated lactic acid 4. HEIDI 5. Normocytic anemia 6. Past medical history: CHF with preserved ejection fraction, history of hypertension, history of DVT/PE on warfarin, familial tremor, hypothyroidism and history of multiple falls in the past. Plan Admit to inpatient. DNR/DNI. I's and O's per routine vitals per routine. 1. Sepsis/possible UTI: treated for UTI on Nov 29 2020 w. Macrobid ; symptoms however most likely > 3 weeks. Culture suggested appropriate antibiotic coverage Per family , patient has had multiple falls under different circumstances in previous months (at least 1 monthly) ; some mechanical ; some accompanied w. weakness. pt lives alone and ambulates w. a 4-point walker Elevated lactate: fluid resuscitation given; abx started CT abdomen : unremarkable for acute processes COVID negative Started on Broad spectrum abx: Vancomycin/Zosyn; deescalate when appropriate Bcx ordered and pending PMH: cont home medications if appropriate. Resume Warfarin Meds for tremor continued PT ordered to work on balance
[2020-12-05] MEDS ORDERED: Acetaminophen 500 MG Tab PO PRN (19:38)
[2020-12-05] MEDS ORDERED: Piperacillin/Tazobactam 4.5 GM in Sodium Chloride 0.9% 100 ML IV SCH (20:15)
[2020-12-05] MEDS ORDERED: Iopamidol 755 Mg/ML 100 ML Bottle IVPUSH ONE (21:33)
--- NOTE | 2020-12-05 22:34 | PN ---
THC Physician - Brief Progress [id number]/26/2021 21:15[facility]Tim[facility], ABBY - [place] (MARTHA) - TOÑA MEDLEYDate of Service 12/05/2020 21:15HPI/Events o f Note Brief eICU Admit [id number] [id number] with hx of CHF, HTN, DVT/PE on warfarin, hypothyroid Presents wi th falls and weaknessO/E Seen on cameraVSS, NADDVT Prophylaxis: coumadinGI Prophylaxis: n/aIssues? Se psis suspected with unclear etiologyElevated lactate- trendOn AbxFalls Presumed sec to abovePt is DNR /DNICase reviewed with bedside teamCall with questionsWill followInterventions Major-Sepsis - evaluat ion and management
[2020-12-05] MEDS: Rosuvastatin 10 MG Tab PO SCH (22:48)
[2020-12-05] MEDS: Carvedilol 3.125 MG Tab PO SCH (22:49)
[2020-12-05] MEDS: rOPINIRole 0.5 MG Tab PO SCH (22:49)
[2020-12-05] MEDS: Primidone 50 MG Tab PO SCH (22:50)
[2020-12-05] MEDS: Gabapentin 300 MG Cap PO SCH (22:56)
[2020-12-05] MEDS: Piperacillin/Tazobactam 2.25 GM in Sodium Chloride 0.9% 50 ML IV SCH (22:58)
--- NOTE | 2020-12-05 23:10 | PN ---
THC Physician - Brief Progress [id number]/26/2021 23:08[facility] bal [place], [place] - [place]UZIA (MARTHA) - TOÑA MEDLEYDate of Service 12/05/2020 23:08HPI/Events o f Note Sepsis Reassessment Focused ExamPatient examined via telepresence with assistance of bedside R N: I have performed a sepsis reassessment focused exam. Physical exam/systems review findings a nd plan: Lactate normalizedInterventions Major-Sepsis - evaluation and managementElectronically Sign ed by: WANDA LEONARD) on 12/05/2020 23:09
[2020-12-06] MEDS: Lactated Ringers 1,000 ML IV SCH ×3 (00:10→19:50)
[2020-12-06] MEDS: Piperacillin/Tazobactam 2.25 GM in Sodium Chloride 0.9% 50 ML IV SCH (03:23)
--- NOTE | 2020-12-06 03:43 | CT ---
INDICATION: Sepsis, fever unknown origin TECHNIQUE: CT Abdomen and pelvis without i.v. contrast. Coronal and sagittal reformats were obtained. COMPARISON: 01/28/2008 FINDINGS: Severe image quality degradation noted due to beam hardening artifacts from scanning with the arms by the patient`s side and motion artifact to the patient`s inability to maintain a breath hold. Lower chest: Unremarkable. Liver: Unremarkable. Spleen: Unremarkable. Pancreas: Unremarkable. Gallbladder: Unremarkable. Kidney: Excretion of contrast into the renal collecting systems and ureters arenoted, which limits evaluation for the presence of stones. Adrenal: Unremarkable. Bowel: The air-filled small bowel loops in the anterior mid abdomen are present measuring 2 cm. The appendix is not identified due to motion artifacts. Vascular: An IVC filter is present and in expected positioning with no identified complications. Lymph: Unremarkable. Peritoneum: Unremarkable. No pneumoperitoneum is seen. No significant ascites is noted. Pelvis: Evaluation of the pelvic soft tissues, distal ureters and osseous structures are limited by beam hardening artifacts from the left hip prosthesis. The bladder is opacified by dense excreted contrast. The patient is status post prior hysterectomy. Soft tissue: Unremarkable. Bone: Moderate levoscoliosis is noted with associated facet arthritis and degenerative disc disease. Grade 2 anterolisthesis of L5-S1 is noted. IMPRESSION: 1. Unremarkable with no CT correlate for the patient`s symptoms seen. Dictated by Avi Gonzalez MD @ 12/06/2020 3:41:43 AM Please note that all CT scans at this facility use dose modulation, iterative reconstruction, and/or weight-based dosing when appropriate to reduce radiation dose to as low as reasonably achievable. Dictated by: Avi Gonzalez MD @ 12/06/2020 03:41:48 (Electronically Signed)
[2020-12-06 07:01] LABS: CARBON DIOXIDE,CO2 26.7 mmol/L (21.0-32.0); POTASSIUM,K 3.4 mmol/L (3.5-5.1)
--- NOTE | 2020-12-06 08:03 | PCM.PN ---
- General Info Date of Service: 12/06/20 Subjective Update: Bedside: mentions some indigestion this AM; otherwise no other acute distress - Review of Systems General: Reports: Weakness, Fatigue HEENT: Reports: No Symptoms Pulmonary: Reports: No Symptoms. Denies: Cough Cardiovascular: Reports: No Symptoms Gastrointestinal: Reports: No Symptoms Genitourinary: Reports: No Symptoms Neurological: Reports: No Symptoms - Patient Data Vitals - Most Recent: Last Vital Signs Temp 99.2 F 12/06/20 05:00 Pulse 102 H 12/05/20 22:49 Resp 24 H 12/06/20 07:00 BP 130/67 12/06/20 07:00 Pulse Ox 94 L 12/06/20 07:00 Weight - Most Recent: 82.418 kg I&O - Last 24 Hours: Intake & Output 12/05/20 12/06/20 12/06/20 22:59 06:59 14:59 Intake Total 250 1934 Output Total 100 Balance 250 1834 Lab Results Last 24 Hours: Laboratory Results - last 24 hr 12/05/20 12/05/20 12/05/20 Range/Units 15:54 15:55 15:55 WBC 7.63 (4.0-11.0) K/uL RBC 3.87 L (4.30-5.90) M/uL Hgb 10.9 L (12.0-16.0) g/dL Hct 35.3 L (36.0-46.0) % MCV 91.2 (80.0-98.0) fL MCH 28.2 (27.0-32.0) pg MCHC 30.9 L (31.0-37.0) g/dL RDW Std Deviation 53.2 (28.0-62.0) fl RDW Coeff of Sebastien 16 H (11.0-15.0) % Plt Count 276 (150-400) K/uL MPV 10.30 (7.40-12.00) fL Neut % (Auto) 80.9 H (48.0-80.0) % Lymph % (Auto) 9.3 L (16.0-40.0) % [place] % (Auto) 8.9 (0.0-15.0) % Eos % (Auto) 0.5 (0.0-7.0) % Baso % (Auto) 0.4 (0.0-1.5) % Neut # (Auto) 6.2 H (1.4-5.7) K/uL Lymph # (Auto) 0.7 (0.6-2.4) K/uL [place] # (Auto) 0.7 (0.0-0.8) K/uL Eos # (Auto) 0.0 (0.0-0.7) K/uL Baso # (Auto) 0.0 (0.0-0.1) K/uL Nucleated RBC % 0.0 /100WBC Nucleated RBCs # 0 K/uL INR Sodium 141 (136-145) mmol/L Potassium 4.1 (3.5-5.1) mmol/L Chloride 102 (98-107) mmol/L Carbon Dioxide 29.8 (21.0-32.0) mmol/L BUN 11 (7.0-18.0) mg/dL Creatinine 1.3 H (0.6-1.0) mg/dL Est Cr Clr Drug Dosing 31.23 mL/min Estimated GFR (MDRD) 39.2 ml/min Glucose 128 H (74-106) mg/dL Lactic Acid (0.4-2.0) mmol/L Calcium 9.9 (8.5-10.1) mg/dL Total Bilirubin 0.4 (0.2-1.0) mg/dL AST 31 (15-37) IU/L ALT 18 (14-63) IU/L Alkaline Phosphatase 109 (46-116) U/L Troponin I (0.000-0.056) ng/mL Total Protein 7.4 (6.4-8.2) g/dL Albumin 3.2 L (3.4-5.0) g/dL Globulin 4.2 H (2.6-4.0) g/dL Albumin/Globulin Ratio 0.8 L (0.9-1.6) Urine Color YELLOW Urine Appearance CLEAR Urine pH 7.5 (5.0-8.0) Ur Specific [place] 1.015 (1.001-1.035) Urine Protein NEGATIVE (NEGATIVE) mg/dL Urine Glucose (UA) NEGATIVE (NEGATIVE) mg/dL Urine Ketones NEGATIVE (NEGATIVE) mg/dL Urine Occult Blood TRACE-LYSED H (NEGATIVE) Urine Nitrite NEGATIVE (NEGATIVE) Urine Bilirubin NEGATIVE (NEGATIVE) Urine Urobilinogen 0.2 (<2.0) EU/dL Ur Leukocyte Esterase NEGATIVE (NEGATIVE) Urine RBC 0-2 (0-2/HPF) Urine WBC 0-2 (0-5/HPF) Ur Epithelial Cells RARE (NONE-FEW) Urine Bacteria FEW (NEGATIVE) SARS-CoV-2 RNA (DEISI) (NEGATIVE) 12/05/20 12/05/20 12/05/20 Range/Units 15:55 15:55 19:54 WBC (4.0-11.0) K/uL RBC (4.30-5.90) M/uL Hgb (12.0-16.0) g/dL Hct (36.0-46.0) % MCV (80.0-98.0) fL MCH (27.0-32.0) pg MCHC (31.0-37.0) g/dL RDW Std Deviation (28.0-62.0) fl RDW Coeff of Sebastien (11.0-15.0) % Plt Count (150-400) K/uL MPV (7.40-12.00) fL Neut % (Auto) (48.0-80.0) % Lymph % (Auto) (16.0-40.0) % [place] % (Auto) (0.0-15.0) % Eos % (Auto) (0.0-7.0) % Baso % (Auto) (0.0-1.5) % Neut # (Auto) (1.4-5.7) K/uL Lymph # (Auto) (0.6-2.4) K/uL [place] # (Auto) (0.0-0.8) K/uL Eos # (Auto) (0.0-0.7) K/uL Baso # (Auto) (0.0-0.1) K/uL Nucleated RBC % /100WBC Nucleated RBCs # K/uL INR Sodium (136-145) mmol/L Potassium (3.5-5.1) mmol/L Chloride (98-107) mmol/L Carbon Dioxide (21.0-32.0) mmol/L BUN (7.0-18.0) mg/dL Creatinine (0.6-1.0) mg/dL Est Cr Clr Drug Dosing mL/min Estimated GFR (MDRD) ml/min Glucose (74-106) mg/dL Lactic Acid 4.7 H* (0.4-2.0) mmol/L Calcium (8.5-10.1) mg/dL Total Bilirubin (0.2-1.0) mg/dL AST (15-37) IU/L ALT (14-63) IU/L Alkaline Phosphatase (46-116) U/L Troponin I < 0.050 (0.000-0.056) ng/mL Total Protein (6.4-8.2) g/dL Albumin (3.4-5.0) g/dL Globulin (2.6-4.0) g/dL Albumin/Globulin Ratio (0.9-1.6) Urine Color Urine Appearance Urine pH (5.0-8.0) Ur Specific [place] (1.001-1.035) Urine Protein (NEGATIVE) mg/dL Urine Glucose (UA) (NEGATIVE) mg/dL Urine Ketones (NEGATIVE) mg/dL Urine Occult Blood (NEGATIVE) Urine Nitrite (NEGATIVE) Urine Bilirubin (NEGATIVE) Urine Urobilinogen (<2.0) EU/dL Ur Leukocyte Esterase (NEGATIVE) Urine RBC (0-2/HPF) Urine WBC (0-5/HPF) Ur Epithelial Cells (NONE-FEW) Urine Bacteria (NEGATIVE) SARS-CoV-2 RNA (DEISI) NEGATIVE (NEGATIVE) 12/05/20 12/06/20 12/06/20 Range/Units 22:00 06:15 06:15 WBC 9.33 (4.0-11.0) K/uL RBC 3.48 L (4.30-5.90) M/uL Hgb 9.6 L (12.0-16.0) g/dL Hct 31.5 L (36.0-46.0) % MCV 90.5 (80.0-98.0) fL MCH 27.6 (27.0-32.0) pg MCHC 30.5 L (31.0-37.0) g/dL RDW Std Deviation 54.0 (28.0-62.0) fl RDW Coeff of Sebastien 16 H (11.0-15.0) % Plt Count 190 (150-400) K/uL MPV 9.70 (7.40-12.00) fL Neut % (Auto) 82.9 H (48.0-80.0) % Lymph % (Auto) 7.8 L (16.0-40.0) % [place] % (Auto) 8.8 (0.0-15.0) % Eos % (Auto) 0.1 (0.0-7.0) % Baso % (Auto) 0.4 (0.0-1.5) % Neut # (Auto) 7.7 H (1.4-5.7) K/uL Lymph # (Auto) 0.7 (0.6-2.4) K/uL [place] # (Auto) 0.8 (0.0-0.8) K/uL Eos # (Auto) 0.0 (0.0-0.7) K/uL Baso # (Auto) 0.0 (0.0-0.1) K/uL Nucleated RBC % 0.0 /100WBC Nucleated RBCs # 0 K/uL INR Sodium 142 (136-145) mmol/L Potassium 3.4 L (3.5-5.1) mmol/L Chloride 107 (98-107) mmol/L Carbon Dioxide 26.7 (21.0-32.0) mmol/L BUN 10 (7.0-18.0) mg/dL Creatinine 1.0 (0.6-1.0) mg/dL Est Cr Clr Drug Dosing 40.60 mL/min Estimated GFR (MDRD) 53.1 ml/min Glucose 105 (74-106) mg/dL Lactic Acid 1.3 (0.4-2.0) mmol/L Calcium 8.3 L (8.5-10.1) mg/dL Total Bilirubin 0.3 (0.2-1.0) mg/dL AST 23 (15-37) IU/L ALT 15 (14-63) IU/L Alkaline Phosphatase 85 (46-116) U/L Troponin I (0.000-0.056) ng/mL Total Protein 6.0 L (6.4-8.2) g/dL Albumin 2.5 L (3.4-5.0) g/dL Globulin 3.5 (2.6-4.0) g/dL Albumin/Globulin Ratio 0.7 L (0.9-1.6) Urine Color Urine Appearance Urine pH (5.0-8.0) Ur Specific [place] (1.001-1.035) Urine Protein (NEGATIVE) mg/dL Urine Glucose (UA) (NEGATIVE) mg/dL Urine Ketones (NEGATIVE) mg/dL Urine Occult Blood (NEGATIVE) Urine Nitrite (NEGATIVE) Urine Bilirubin (NEGATIVE) Urine Urobilinogen (<2.0) EU/dL Ur Leukocyte Esterase (NEGATIVE) Urine RBC (0-2/HPF) Urine WBC (0-5/HPF) Ur Epithelial Cells (NONE-FEW) Urine Bacteria (NEGATIVE) SARS-CoV-2 RNA (DEISI) (NEGATIVE) 12/06/20 Range/Units 06:15 WBC (4.0-11.0) K/uL RBC (4.30-5.90) M/uL Hgb (12.0-16.0) g/dL Hct (36.0-46.0) % MCV (80.0-98.0) fL MCH (27.0-32.0) pg MCHC (31.0-37.0) g/dL RDW Std Deviation (28.0-62.0) fl RDW Coeff of Sebastien (11.0-15.0) % Plt Count (150-400) K/uL MPV (7.40-12.00) fL Neut % (Auto) (48.0-80.0) % Lymph % (Auto) (16.0-40.0) % [place] % (Auto) (0.0-15.0) % Eos % (Auto) (0.0-7.0) % Baso % (Auto) (0.0-1.5) % Neut # (Auto) (1.4-5.7) K/uL Lymph # (Auto) (0.6-2.4) K/uL [place] # (Auto) (0.0-0.8) K/uL Eos # (Auto) (0.0-0.7) K/uL Baso # (Auto) (0.0-0.1) K/uL Nucleated RBC % /100WBC Nucleated RBCs # K/uL INR 2.28 Sodium (136-145) mmol/L Potassium (3.5-5.1) mmol/L Chloride (98-107) mmol/L Carbon Dioxide (21.0-32.0) mmol/L BUN (7.0-18.0) mg/dL Creatinine (0.6-1.0) mg/dL Est Cr Clr Drug Dosing mL/min Estimated GFR (MDRD) ml/min Glucose (74-106) mg/dL Lactic Acid (0.4-2.0) mmol/L Calcium (8.5-10.1) mg/dL Total Bilirubin (0.2-1.0) mg/dL AST (15-37) IU/L ALT (14-63) IU/L Alkaline Phosphatase (46-116) U/L Troponin I (0.000-0.056) ng/mL Total Protein (6.4-8.2) g/dL Albumin (3.4-5.0) g/dL Globulin (2.6-4.0) g/dL Albumin/Globulin Ratio (0.9-1.6) Urine Color Urine Appearance Urine pH (5.0-8.0) Ur Specific [place] (1.001-1.035) Urine Protein (NEGATIVE) mg/dL Urine Glucose (UA) (NEGATIVE) mg/dL Urine Ketones (NEGATIVE) mg/dL Urine Occult Blood (NEGATIVE) Urine Nitrite (NEGATIVE) Urine Bilirubin (NEGATIVE) Urine Urobilinogen (<2.0) EU/dL Ur Leukocyte Esterase (NEGATIVE) Urine RBC (0-2/HPF) Urine WBC (0-5/HPF) Ur Epithelial Cells (NONE-FEW) Urine Bacteria (NEGATIVE) SARS-CoV-2 RNA (DEISI) (NEGATIVE) [place] Results Last 24 Hours: Microbiology 12/05/20 16:00 Anaerobic Blood Culture - Final Blood - Venous - Lab Draw Med Orders - Current: Current Medications Acetaminophen (Acetaminophen 500 Mg Tab) 500 mg PO Q4H PRN PRN Reason: Fever Carvedilol (Carvedilol 3.125 Mg Tab) 3.125 mg PO BID [facility] Last Admin: 12/05/20 22:49 Dose: 3.125 mg Documented by: Gabapentin (Gabapentin 300 Mg Cap) 300 mg PO BID [facility] Last Admin: 12/05/20 22:56 Dose: 300 mg Documented by: Vancomycin HCl 1.25 gm/ Sodium (Chloride) 250 mls @ 166.667 mls/hr IV Q24H [facility] Lactated Ringer's (Ringers, Lactated) 1,000 mls @ 125 mls/hr IV ASDIRECTED [facility] Last Admin: 12/06/20 00:10 Dose: 125 mls/hr Documented by: Piperacillin Sod/Tazobactam (Sod 3.375 gm/ Sodium Chloride) 50 mls @ 100 mls/hr IV Q6H [facility] Levothyroxine Sodium (Levothyroxine 100 Mcg Tab) 100 mcg PO ACBRK [facility] Ondansetron HCl (Ondansetron 4 Mg Tab.Dis) 4 mg PO Q6H PRN PRN Reason: nausea, able to take PO Primidone (Primidone 50 Mg Tab) 150 mg PO BEDTIME [facility] Last Admin: 12/05/20 22:50 Dose: 150 mg Documented by: Ropinirole HCl (Ropinirole 0.5 Mg Tab) 0.5 mg PO BEDTIME [facility] Last Admin: 12/05/20 22:49 Dose: 0.5 mg Documented by: Rosuvastatin Calcium (Rosuvastatin 10 Mg Tab) 20 mg PO BEDTIME [facility] Last Admin: 12/05/20 22:48 Dose: 20 mg Documented by: Sodium Chloride (Sodium Chloride 0.9% 10 Ml Syringe) 10 ml FLUSH ASDIRECTED PRN PRN Reason: Keep Vein Open Last Admin: 12/05/20 16:50 Dose: 10 ml Documented by: Sodium Chloride (Sodium Chloride 0.9% 2.5 Ml Syringe) 2.5 ml FLUSH ASDIRECTED PRN PRN Reason: Keep Vein Open Tramadol HCl (Tramadol 50 Mg Tab) 50 mg PO TID PRN PRN Reason: Pain Vancomycin HCl (Pharmacy To Dose - Vancomycin) 1 dose .XX ASDIRECTED [facility] Warfarin Sodium (Warfarin Ask Dosing) 1 each PO ASDIRECTED [facility] Warfarin Sodium (Warfarin 5 Mg Tab) 5 mg PO 12/06/20@1400 [facility] Stop: 12/06/20 16:00 Discontinued Medications Ceftriaxone Sodium (Ceftriaxone 1 Gm Vial) Confirm Administered Dose 1 gm .ROUTE .STK-MED ONE Stop: 12/05/20 16:47 Last Admin: 12/05/20 16:50 Dose: Not Given Documented by: Sodium Chloride (Normal Saline) 1,000 mls @ 999 mls/hr IV BOLUS ONE; Protocol Stop: 12/05/20 17:01 Last Admin: 12/05/20 16:48 Dose: 999 mls/hr Documented by: Ceftriaxone Sodium/Dextrose (Rocephin In Dextrose,Iso-Osm 1 Gm/50 Ml) 50 mls @ 100 mls/hr IV ONETIME ONE Stop: 12/05/20 17:14 Last Admin: 12/05/20 16:49 Dose: 100 mls/hr Documented by: Vancomycin HCl 1 gm/ Sodium (Chloride) 250 mls @ 166 mls/hr IV ONETIME ONE Stop: 12/05/20 20:51 Last Admin: 12/05/20 20:08 Dose: 166 mls/hr Documented by: Sodium Chloride (Normal Saline) 1,000 mls @ 999 mls/hr IV STAT ONE Stop: 12/05/20 21:00 Last Admin: 12/05/20 20:07 Dose: 999 mls/hr Documented by: Piperacillin Sod/Tazobactam (Sod 4.5 gm/ Sodium Chloride) 100 mls @ 100 mls/hr IV Q8H [facility] Last Admin: 12/05/20 20:23 Dose: Not Given Documented by: Piperacillin Sod/Tazobactam (Sod 2.25 gm/ Sodium Chloride) 50 mls @ 100 mls/hr IV Q6H [facility] Last Admin: 12/06/20 03:23 Dose: 100 mls/hr Documented by: Iopamidol (Iopamidol 755 Mg/Ml 100 Ml Bottle) 100 ml IVPUSH ONETIME ONE Stop: 12/05/20 21:34 Last Admin: 12/05/20 21:33 Dose: 100 ml Documented by: - Exam General: Alert, Cooperative, No Acute Distress HEENT: EOMI Neck: Supple Lungs: Clear to Auscultation, Normal Respiratory Effort Cardiovascular: Regular Rate, Regular Rhythm GI/Abdominal Exam: Soft, Non-Tender Extremities: Normal Inspection Neurological: Other (tremor unchanged ) Psy/Mental Status: Alert - Patient Data Lab Results Last 24 hrs: Laboratory Results - last 24 hr 12/05/20 12/05/20 12/05/20 Range/Units 15:54 15:55 15:55 WBC 7.63 (4.0-11.0) K/uL RBC 3.87 L (4.30-5.90) M/uL Hgb 10.9 L (12.0-16.0) g/dL Hct 35.3 L (36.0-46.0) % MCV 91.2 (80.0-98.0) fL MCH 28.2 (27.0-32.0) pg MCHC 30.9 L (31.0-37.0) g/dL RDW Std Deviation 53.2 (28.0-62.0) fl RDW Coeff of Sebastien 16 H (11.0-15.0) % Plt Count 276 (150-400) K/uL MPV 10.30 (7.40-12.00) fL Neut % (Auto) 80.9 H (48.0-80.0) % Lymph % (Auto) 9.3 L (16.0-40.0) % [place] % (Auto) 8.9 (0.0-15.0) % Eos % (Auto) 0.5 (0.0-7.0) % Baso % (Auto) 0.4 (0.0-1.5) % Neut # (Auto) 6.2 H (1.4-5.7) K/uL Lymph # (Auto) 0.7 (0.6-2.4) K/uL [place] # (Auto) 0.7 (0.0-0.8) K/uL Eos # (Auto) 0.0 (0.0-0.7) K/uL Baso # (Auto) 0.0 (0.0-0.1) K/uL Nucleated RBC % 0.0 /100WBC Nucleated RBCs # 0 K/uL INR Sodium 141 (136-145) mmol/L Potassium 4.1 (3.5-5.1) mmol/L Chloride 102 (98-107) mmol/L Carbon Dioxide 29.8 (21.0-32.0) mmol/L BUN 11 (7.0-18.0) mg/dL Creatinine 1.3 H (0.6-1.0) mg/dL Est Cr Clr Drug Dosing 31.23 mL/min Estimated GFR (MDRD) 39.2 ml/min Glucose 128 H (74-106) mg/dL Lactic Acid (0.4-2.0) mmol/L Calcium 9.9 (8.5-10.1) mg/dL Total Bilirubin 0.4 (0.2-1.0) mg/dL AST 31 (15-37) IU/L ALT 18 (14-63) IU/L Alkaline Phosphatase 109 (46-116) U/L Troponin I (0.000-0.056) ng/mL Total Protein 7.4 (6.4-8.2) g/dL Albumin 3.2 L (3.4-5.0) g/dL Globulin 4.2 H (2.6-4.0) g/dL Albumin/Globulin Ratio 0.8 L (0.9-1.6) Urine Color YELLOW Urine Appearance CLEAR Urine pH 7.5 (5.0-8.0) Ur Specific [place] 1.015 (1.001-1.035) Urine Protein NEGATIVE (NEGATIVE) mg/dL Urine Glucose (UA) NEGATIVE (NEGATIVE) mg/dL Urine Ketones NEGATIVE (NEGATIVE) mg/dL Urine Occult Blood TRACE-LYSED H (NEGATIVE) Urine Nitrite NEGATIVE (NEGATIVE) Urine Bilirubin NEGATIVE (NEGATIVE) Urine Urobilinogen 0.2 (<2.0) EU/dL Ur Leukocyte Esterase NEGATIVE (NEGATIVE) Urine RBC 0-2 (0-2/HPF) Urine WBC 0-2 (0-5/HPF) Ur Epithelial Cells RARE (NONE-FEW) Urine Bacteria FEW (NEGATIVE) SARS-CoV-2 RNA (DEISI) (NEGATIVE) 12/05/20 12/05/20 12/05/20 Range/Units 15:55 15:55 19:54 WBC (4.0-11.0) K/uL RBC (4.30-5.90) M/uL Hgb (12.0-16.0) g/dL Hct (36.0-46.0) % MCV (80.0-98.0) fL MCH (27.0-32.0) pg MCHC (31.0-37.0) g/dL RDW Std Deviation (28.0-62.0) fl RDW Coeff of Sebastien (11.0-15.0) % Plt Count (150-400) K/uL MPV (7.40-12.00) fL Neut % (Auto) (48.0-80.0) % Lymph % (Auto) (16.0-40.0) % [place] % (Auto) (0.0-15.0) % Eos % (Auto) (0.0-7.0) % Baso % (Auto) (0.0-1.5) % Neut # (Auto) (1.4-5.7) K/uL Lymph # (Auto) (0.6-2.4) K/uL [place] # (Auto) (0.0-0.8) K/uL Eos # (Auto) (0.0-0.7) K/uL Baso # (Auto) (0.0-0.1) K/uL Nucleated RBC % /100WBC Nucleated RBCs # K/uL INR Sodium (136-145) mmol/L Potassium (3.5-5.1) mmol/L Chloride (98-107) mmol/L Carbon Dioxide (21.0-32.0) mmol/L BUN (7.0-18.0) mg/dL Creatinine (0.6-1.0) mg/dL Est Cr Clr Drug Dosing mL/min Estimated GFR (MDRD) ml/min Glucose (74-106) mg/dL Lactic Acid 4.7 H* (0.4-2.0) mmol/L Calcium (8.5-10.1) mg/dL Total Bilirubin (0.2-1.0) mg/dL AST (15-37) IU/L ALT (14-63) IU/L Alkaline Phosphatase (46-116) U/L Troponin I < 0.050 (0.000-0.056) ng/mL Total Protein (6.4-8.2) g/dL Albumin (3.4-5.0) g/dL Globulin (2.6-4.0) g/dL Albumin/Globulin Ratio (0.9-1.6) Urine Color Urine Appearance Urine pH (5.0-8.0) Ur Specific [place] (1.001-1.035) Urine Protein (NEGATIVE) mg/dL Urine Glucose (UA) (NEGATIVE) mg/dL Urine Ketones (NEGATIVE) mg/dL Urine Occult Blood (NEGATIVE) Urine Nitrite (NEGATIVE) Urine Bilirubin (NEGATIVE) Urine Urobilinogen (<2.0) EU/dL Ur Leukocyte Esterase (NEGATIVE) Urine RBC (0-2/HPF) Urine WBC (0-5/HPF) Ur Epithelial Cells (NONE-FEW) Urine Bacteria (NEGATIVE) SARS-CoV-2 RNA (DEISI) NEGATIVE (NEGATIVE) 12/05/20 12/06/20 12/06/20 Range/Units 22:00 06:15 06:15 WBC 9.33 (4.0-11.0) K/uL RBC 3.48 L (4.30-5.90) M/uL Hgb 9.6 L (12.0-16.0) g/dL Hct 31.5 L (36.0-46.0) % MCV 90.5 (80.0-98.0) fL MCH 27.6 (27.0-32.0) pg MCHC 30.5 L (31.0-37.0) g/dL RDW Std Deviation 54.0 (28.0-62.0) fl RDW Coeff of Sebastien 16 H (11.0-15.0) % Plt Count 190 (150-400) K/uL MPV 9.70 (7.40-12.00) fL Neut % (Auto) 82.9 H (48.0-80.0) % Lymph % (Auto) 7.8 L (16.0-40.0) % [place] % (Auto) 8.8 (0.0-15.0) % Eos % (Auto) 0.1 (0.0-7.0) % Baso % (Auto) 0.4 (0.0-1.5) % Neut # (Auto) 7.7 H (1.4-5.7) K/uL Lymph # (Auto) 0.7 (0.6-2.4) K/uL [place] # (Auto) 0.8 (0.0-0.8) K/uL Eos # (Auto) 0.0 (0.0-0.7) K/uL Baso # (Auto) 0.0 (0.0-0.1) K/uL Nucleated RBC % 0.0 /100WBC Nucleated RBCs # 0 K/uL INR Sodium 142 (136-145) mmol/L Potassium 3.4 L (3.5-5.1) mmol/L Chloride 107 (98-107) mmol/L Carbon Dioxide 26.7 (21.0-32.0) mmol/L BUN 10 (7.0-18.0) mg/dL Creatinine 1.0 (0.6-1.0) mg/dL Est Cr Clr Drug Dosing 40.60 mL/min Estimated GFR (MDRD) 53.1 ml/min Glucose 105 (74-106) mg/dL Lactic Acid 1.3 (0.4-2.0) mmol/L Calcium 8.3 L (8.5-10.1) mg/dL Total Bilirubin 0.3 (0.2-1.0) mg/dL AST 23 (15-37) IU/L ALT 15 (14-63) IU/L Alkaline Phosphatase 85 (46-116) U/L Troponin I (0.000-0.056) ng/mL Total Protein 6.0 L (6.4-8.2) g/dL Albumin 2.5 L (3.4-5.0) g/dL Globulin 3.5 (2.6-4.0) g/dL Albumin/Globulin Ratio 0.7 L (0.9-1.6) Urine Color Urine Appearance Urine pH (5.0-8.0) Ur Specific [place] (1.001-1.035) Urine Protein (NEGATIVE) mg/dL Urine Glucose (UA) (NEGATIVE) mg/dL Urine Ketones (NEGATIVE) mg/dL Urine Occult Blood (NEGATIVE) Urine Nitrite (NEGATIVE) Urine Bilirubin (NEGATIVE) Urine Urobilinogen (<2.0) EU/dL Ur Leukocyte Esterase (NEGATIVE) Urine RBC (0-2/HPF) Urine WBC (0-5/HPF) Ur Epithelial Cells (NONE-FEW) Urine Bacteria (NEGATIVE) SARS-CoV-2 RNA (DEISI) (NEGATIVE) 12/06/20 Range/Units 06:15 WBC (4.0-11.0) K/uL RBC (4.30-5.90) M/uL Hgb (12.0-16.0) g/dL Hct (36.0-46.0) % MCV (80.0-98.0) fL MCH (27.0-32.0) pg MCHC (31.0-37.0) g/dL RDW Std Deviation (28.0-62.0) fl RDW Coeff of Sebastien (11.0-15.0) % Plt Count (150-400) K/uL MPV (7.40-12.00) fL Neut % (Auto) (48.0-80.0) % Lymph % (Auto) (16.0-40.0) % [place] % (Auto) (0.0-15.0) % Eos % (Auto) (0.0-7.0) % Baso % (Auto) (0.0-1.5) % Neut # (Auto) (1.4-5.7) K/uL Lymph # (Auto) (0.6-2.4) K/uL [place] # (Auto) (0.0-0.8) K/uL Eos # (Auto) (0.0-0.7) K/uL Baso # (Auto) (0.0-0.1) K/uL Nucleated RBC % /100WBC Nucleated RBCs # K/uL INR 2.28 Sodium (136-145) mmol/L Potassium (3.5-5.1) mmol/L Chloride (98-107) mmol/L Carbon Dioxide (21.0-32.0) mmol/L BUN (7.0-18.0) mg/dL Creatinine (0.6-1.0) mg/dL Est Cr Clr Drug Dosing mL/min Estimated GFR (MDRD) ml/min Glucose (74-106) mg/dL Lactic Acid (0.4-2.0) mmol/L Calcium (8.5-10.1) mg/dL Total Bilirubin (0.2-1.0) mg/dL AST (15-37) IU/L ALT (14-63) IU/L Alkaline Phosphatase (46-116) U/L Troponin I (0.000-0.056) ng/mL Total Protein (6.4-8.2) g/dL Albumin (3.4-5.0) g/dL Globulin (2.6-4.0) g/dL Albumin/Globulin Ratio (0.9-1.6) Urine Color Urine Appearance Urine pH (5.0-8.0) Ur Specific [place] (1.001-1.035) Urine Protein (NEGATIVE) mg/dL Urine Glucose (UA) (NEGATIVE) mg/dL Urine Ketones (NEGATIVE) mg/dL Urine Occult Blood (NEGATIVE) Urine Nitrite (NEGATIVE) Urine Bilirubin (NEGATIVE) Urine Urobilinogen (<2.0) EU/dL Ur Leukocyte Esterase (NEGATIVE) Urine RBC (0-2/HPF) Urine WBC (0-5/HPF) Ur Epithelial Cells (NONE-FEW) Urine Bacteria (NEGATIVE) SARS-CoV-2 RNA (DEISI) (NEGATIVE) Result Diagrams: 12/06/20 06:15 12/06/20 06:15 [place] Results Last 24 hrs: Microbiology 12/05/20 16:00 Anaerobic Blood Culture - Final Blood - Venous - Lab Draw Sepsis Event Note - Evaluation Sepsis Screening Result: No Definite Risk - Focused Exam Vital Signs: Vital Signs Temp Pulse Pulse Resp BP BP Pulse Ox 12/06/20 07:00 24 H 130/67 94 L 12/06/20 06:00 22 H 126/69 97 12/06/20 05:00 99.2 F 26 H 126/59 L 100 12/06/20 04:00 25 H 147/71 H 97 12/06/20 03:00 22 H 138/70 99 12/06/20 02:00 23 H 135/87 97 12/06/20 01:00 24 H 118/89 100 12/06/20 00:00 98.8 F 22 H 132/63 100 12/05/20 23:00 24 H 134/65 99 12/05/20 22:49 102 H 124/52 L 12/05/20 22:00 99 F 22 H 124/52 L 97 12/05/20 21:36 24 H 135/50 L 97 12/05/20 21:18 99.7 F 90 20 130/81 91 L - Problem List & Annotations (1) Weakness SNOMED Code(s): 20740472 Code(s): R53.1 - WEAKNESS Status: Acute Current Visit: Yes (2) Fall SNOMED Code(s): 5963246, 501719621 Code(s): W19.XXXA - UNSPECIFIED FALL, INITIAL ENCOUNTER Status: Acute Current Visit: Yes (3) UTI (urinary tract infection) SNOMED Code(s): 21727919 Code(s): N39.0 - URINARY TRACT INFECTION, SITE NOT SPECIFIED Status: Acute Current Visit: Yes (4) Familial tremor SNOMED Code(s): 084366088 Code(s): G25.0 - ESSENTIAL TREMOR Status: Acute Current Visit: Yes (5) Acute kidney injury SNOMED Code(s): 06362918, 12669095 Code(s): N17.9 - ACUTE KIDNEY FAILURE, UNSPECIFIED Status: Acute Current Visit: No (6) CHF (congestive heart failure) SNOMED Code(s): 72097114 Code(s): I50.9 - HEART FAILURE, UNSPECIFIED Status: Chronic Priority: Medium Current Visit: No (7) HTN (hypertension) SNOMED Code(s): 57641063 Code(s): I10 - ESSENTIAL (PRIMARY) HYPERTENSION Status: Chronic Priority: Medium Current Visit: No Qualifiers: Hypertension type: essential hypertension Qualified Code(s): I10 - Essential (primary) hypertension - Problem List Review Problem List Initiated/Reviewed/Updated: Yes - My Orders Last 24 Hours: My Active Orders 12/05/20 19:30 Oxygen Therapy [RC] PRN Up With Assistance [RC] ASDIRECTED VTE/DVT Education [RC] PER UNIT ROUTINE Vital Signs [RC] Q1H PT Evaluation and Treatment [CONS] Routine Ondansetron [Zofran ODT] 4 mg PO Q6H PRN Sequential Compression Device [OM.PC] Per Unit Routine Resuscitation Status Routine 12/05/20 19:32 Antiembolic Devices [RC] Q12H 12/05/20 19:34 traMADol [Ultram] 50 mg PO TID PRN 12/05/20 19:38 Acetaminophen [Tylenol Extra Strength] 500 mg PO Q4H PRN 12/05/20 20:15 Pharmacy to Dose - Vancomycin 1 dose .XX ASDIRECTED 12/05/20 21:00 Gabapentin [Neurontin] 300 mg PO BID Primidone [Mysoline] 150 mg PO BEDTIME Rosuvastatin [Crestor] 20 mg PO BEDTIME carvediloL [Coreg] 3.125 mg PO BID rOPINIRole [Requip] 0.5 mg PO BEDTIME 12/06/20 07:30 Levothyroxine [Synthroid] 100 mcg PO ACBRK 12/06/20 09:00 Piperacillin/Tazobactam [Piperacil-Tazobact] 3.375 gm Sodium Chloride 0.9% [Normal Saline] 50 ml IV Q6H 12/06/20 17:00 Vancomycin 1.25 gm Sodium Chloride 0.9% [Normal Saline (AdvBag)] 250 ml IV Q24H 12/07/20 05:11 CBC WITH AUTO DIFF [HEME] AM COMPREHENSIVE METABOLIC PN,CMP [CHEM] AM 12/08/20 05:11 CBC WITH AUTO DIFF [HEME] AM COMPREHENSIVE METABOLIC PN,CMP [CHEM] AM - Plan Plan:: Assessment: 1. Sepsis in setting of possible UTI. 2. Weakness/unwitnessed fall while on anticoagulation 3. Elevated lactic acid:resolved 4. HEIDI:resolved 5. Normocytic anemia:stable 6. Past medical history: CHF with preserved ejection fraction, history of hypertension, history of DVT/PE on warfarin, familial tremor, hypothyroidism and history of multiple falls in the past. 7. Hypomagnesemia 8. Hypokalemia Plan 1. Sepsis/possible UTI: treated for UTI on Nov 29 2020 w. Macrobid ; symptoms however most likely > 3 weeks. Continue Vancomycin + Zosyn since repeat urine cultures cannot be performed (not enough urine was collected for repeat urine cultures) prior to initiation of abx Concerns for possible inadequate treatment for Aerococcus Viridans on urine culture; susceptible to Penicillins; if clinically improving ; may switch to CTX in AM CT abdomen : unremarkable for acute processes COVID negative Resume Warfarin Bcx ordered and pending Trop x 2 negative ; unremarkable telemetry; given PPI Hypomagnesemia: 2 grams given; recheck in AM Hypokalemia: 40 meq PO given in AM; recheck in AM PMH: cont home medications if appropriate. Resume Warfarin Meds for tremor continued PT ordered to work on balance
[2020-12-06] MEDS ORDERED: Potassium Chloride 20 MEQ Tab.ER PO ONE (08:11)
[2020-12-06] MEDS: Levothyroxine 100 MCG Tab PO SCH (08:27)
[2020-12-06] MEDS: Carvedilol 3.125 MG Tab PO SCH ×2 (08:27→21:21)
[2020-12-06] MEDS: Gabapentin 300 MG Cap PO SCH ×2 (08:28→21:21)
[2020-12-06] MEDS: Piperacillin/Tazobactam 3.375 GM in Sodium Chloride 0.9% 50 ML IV SCH ×3 (08:33→21:26)
[2020-12-06] MEDS ORDERED: Omeprazole 20 MG Cap.CR PO ONE (08:59)
[2020-12-06] MEDS ORDERED: Magnesium Sulfate/Water 2 GM in Premix Bag 1 BAG IV ONE (09:00)
[2020-12-06] MEDS ORDERED: Warfarin 5 MG Tab PO SCH (14:00)
[2020-12-06] MEDS ORDERED: ALPRAZOLAM 1 MG PO PRN (18:06)
[2020-12-06] MEDS ORDERED: ALPRAZolam 0.5 MG Tab PO PRN (19:28)
[2020-12-06] MEDS: Rosuvastatin 10 MG Tab PO SCH (21:21)
[2020-12-06] MEDS: Primidone 50 MG Tab PO SCH (21:21)
[2020-12-06] MEDS: rOPINIRole 0.5 MG Tab PO SCH (21:22)
[2020-12-07] MEDS: Piperacillin/Tazobactam 3.375 GM in Sodium Chloride 0.9% 50 ML IV SCH ×2 (03:38→08:58)
[2020-12-07] MEDS: Lactated Ringers 1,000 ML IV SCH (05:31)
[2020-12-07 06:08] LABS: CARBON DIOXIDE,CO2 27.6 mmol/L (21.0-32.0); POTASSIUM,K 3.6 mmol/L (3.5-5.1)
[2020-12-07] MEDS: Levothyroxine 100 MCG Tab PO SCH (06:32)
[2020-12-07] MEDS: Carvedilol 3.125 MG Tab PO SCH ×2 (08:55→20:18)
[2020-12-07] MEDS: Gabapentin 300 MG Cap PO SCH ×2 (08:58→20:18)
[2020-12-07] MEDS: cefTRIAXone 1 GM in Premix Bag 1 BAG IV SCH (11:04)
--- NOTE | 2020-12-07 14:28 | PCM.PN ---
- General Info Date of Service: 12/07/20 Subjective Update: Bedside: endorses no new acute distress. Eating and drinking well w.o issues - Review of Systems General: Reports: Weakness HEENT: Reports: No Symptoms Pulmonary: Reports: Cough Cardiovascular: Reports: No Symptoms Gastrointestinal: Reports: No Symptoms Musculoskeletal: Reports: Shoulder Pain Neurological: Reports: Pre-Existing Deficit, Other (baseline tremor ) Psychiatric: Reports: No Symptoms - Patient Data Vitals - Most Recent: Last Vital Signs Temp 98.6 F 12/07/20 12:00 Pulse 80 12/07/20 08:55 Resp 18 12/07/20 14:00 BP 95/56 L 12/07/20 13:00 Pulse Ox 96 12/07/20 14:00 Weight - Most Recent: 83.007 kg I&O - Last 24 Hours: Intake & Output 12/06/20 12/07/20 12/07/20 22:59 06:59 14:59 Intake Total 750 0 836 Output Total 780 Balance -30 0 836 Lab Results Last 24 Hours: Laboratory Results - last 24 hr 12/07/20 12/07/20 12/07/20 Range/Units 05:20 05:20 05:20 WBC 8.55 (4.0-11.0) K/uL RBC 2.93 L (4.30-5.90) M/uL Hgb 8.1 L (12.0-16.0) g/dL Hct 26.5 L (36.0-46.0) % MCV 90.4 (80.0-98.0) fL MCH 27.6 (27.0-32.0) pg MCHC 30.6 L (31.0-37.0) g/dL RDW Std Deviation 53.8 (28.0-62.0) fl RDW Coeff of Sebastien 16 H (11.0-15.0) % Plt Count 182 (150-400) K/uL MPV 9.60 (7.40-12.00) fL Neut % (Auto) 81.2 H (48.0-80.0) % Lymph % (Auto) 9.8 L (16.0-40.0) % [place] % (Auto) 8.2 (0.0-15.0) % Eos % (Auto) 0.6 (0.0-7.0) % Baso % (Auto) 0.2 (0.0-1.5) % Neut # (Auto) 6.9 H (1.4-5.7) K/uL Lymph # (Auto) 0.8 (0.6-2.4) K/uL [place] # (Auto) 0.7 (0.0-0.8) K/uL Eos # (Auto) 0.1 (0.0-0.7) K/uL Baso # (Auto) 0.0 (0.0-0.1) K/uL Nucleated RBC % 0.0 /100WBC Nucleated RBCs # 0 K/uL INR 2.22 Sodium 138 (136-145) mmol/L Potassium 3.6 (3.5-5.1) mmol/L Chloride 104 (98-107) mmol/L Carbon Dioxide 27.6 (21.0-32.0) mmol/L BUN 9 (7.0-18.0) mg/dL Creatinine 0.9 (0.6-1.0) mg/dL Est Cr Clr Drug Dosing 45.12 mL/min Estimated GFR (MDRD) 59.9 ml/min Glucose 100 (74-106) mg/dL Calcium 8.3 L (8.5-10.1) mg/dL Magnesium 1.8 (1.8-2.4) mg/dL Total Bilirubin 0.4 (0.2-1.0) mg/dL AST 22 (15-37) IU/L ALT 13 L (14-63) IU/L Alkaline Phosphatase 73 (46-116) U/L Total Protein 5.3 L (6.4-8.2) g/dL Albumin 2.0 L (3.4-5.0) g/dL Globulin 3.3 (2.6-4.0) g/dL Albumin/Globulin Ratio 0.6 L (0.9-1.6) Brando Results Last 24 Hours: Microbiology 12/05/20 16:00 Aerobic Blood Culture - Preliminary Blood - Venous - Lab Draw NO GROWTH AFTER 1 DAY Anaerobic Blood Culture - Final 12/05/20 15:55 Aerobic Blood Culture - Preliminary Blood - Venous NO GROWTH AFTER 1 DAY Anaerobic Blood Culture - Preliminary NO GROWTH AFTER 1 DAY Med Orders - Current: Current Medications Acetaminophen (Acetaminophen 500 Mg Tab) 500 mg PO Q4H PRN PRN Reason: Fever Alprazolam (Alprazolam 0.5 Mg Tab) 0.5 mg PO BEDTIME PRN PRN Reason: Insomnia Last Admin: 12/06/20 21:21 Dose: 0.5 mg Documented by: Carvedilol (Carvedilol 3.125 Mg Tab) 3.125 mg PO BID [facility] Last Admin: 12/07/20 08:55 Dose: 3.125 mg Documented by: Gabapentin (Gabapentin 300 Mg Cap) 300 mg PO BID [facility] Last Admin: 12/07/20 08:58 Dose: 300 mg Documented by: Ceftriaxone Sodium/Dextrose 1 (gm/ Premix) 50 mls @ 100 mls/hr IV Q24H [facility] Last Admin: 12/07/20 11:04 Dose: 100 mls/hr Documented by: Levothyroxine Sodium (Levothyroxine 100 Mcg Tab) 100 mcg PO ACBRK [facility] Last Admin: 12/07/20 06:32 Dose: 100 mcg Documented by: Ondansetron HCl (Ondansetron 4 Mg Tab.Dis) 4 mg PO Q6H PRN PRN Reason: nausea, able to take PO Primidone (Primidone 50 Mg Tab) 150 mg PO BEDTIME [facility] Last Admin: 12/06/20 21:21 Dose: 150 mg Documented by: Ropinirole HCl (Ropinirole 0.5 Mg Tab) 0.5 mg PO BEDTIME [facility] Last Admin: 12/06/20 21:22 Dose: 0.5 mg Documented by: Rosuvastatin Calcium (Rosuvastatin 10 Mg Tab) 20 mg PO BEDTIME [facility] Last Admin: 12/06/20 21:21 Dose: 20 mg Documented by: Sodium Chloride (Sodium Chloride 0.9% 10 Ml Syringe) 10 ml FLUSH ASDIRECTED PRN PRN Reason: Keep Vein Open Last Admin: 12/05/20 16:50 Dose: 10 ml Documented by: Sodium Chloride (Sodium Chloride 0.9% 2.5 Ml Syringe) 2.5 ml FLUSH ASDIRECTED PRN PRN Reason: Keep Vein Open Tramadol HCl (Tramadol 50 Mg Tab) 50 mg PO TID PRN PRN Reason: Pain Discontinued Medications Ceftriaxone Sodium (Ceftriaxone 1 Gm Vial) Confirm Administered Dose 1 gm .ROUTE .STK-MED ONE Stop: 12/05/20 16:47 Last Admin: 12/05/20 16:50 Dose: Not Given Documented by: Sodium Chloride (Normal Saline) 1,000 mls @ 999 mls/hr IV BOLUS ONE; Protocol Stop: 12/05/20 17:01 Last Admin: 12/05/20 16:48 Dose: 999 mls/hr Documented by: Ceftriaxone Sodium/Dextrose (Rocephin In Dextrose,Iso-Osm 1 Gm/50 Ml) 50 mls @ 100 mls/hr IV ONETIME ONE Stop: 12/05/20 17:14 Last Admin: 12/05/20 16:49 Dose: 100 mls/hr Documented by: Vancomycin HCl 1 gm/ Sodium (Chloride) 250 mls @ 166 mls/hr IV ONETIME ONE Stop: 12/05/20 20:51 Last Admin: 12/05/20 20:08 Dose: 166 mls/hr Documented by: Sodium Chloride (Normal Saline) 1,000 mls @ 999 mls/hr IV STAT ONE Stop: 12/05/20 21:00 Last Admin: 12/05/20 20:07 Dose: 999 mls/hr Documented by: Piperacillin Sod/Tazobactam (Sod 4.5 gm/ Sodium Chloride) 100 mls @ 100 mls/hr IV Q8H [facility] Last Admin: 12/05/20 20:23 Dose: Not Given Documented by: Piperacillin Sod/Tazobactam (Sod 2.25 gm/ Sodium Chloride) 50 mls @ 100 mls/hr IV Q6H [facility] Last Admin: 12/06/20 03:23 Dose: 100 mls/hr Documented by: Vancomycin HCl 1.25 gm/ Sodium (Chloride) 250 mls @ 166.667 mls/hr IV Q24H [facility] Last Admin: 12/06/20 17:07 Dose: 166.667 mls/hr Documented by: Lactated Ringer's (Ringers, Lactated) 1,000 mls @ 125 mls/hr IV ASDIRECTED [facility] Last Admin: 12/07/20 05:31 Dose: 125 mls/hr Documented by: Piperacillin Sod/Tazobactam (Sod 3.375 gm/ Sodium Chloride) 50 mls @ 100 mls/hr IV Q6H [facility] Last Admin: 12/07/20 08:58 Dose: 100 mls/hr Documented by: Magnesium Sulfate 2 gm/ Premix 50 mls @ 12.5 mls/hr IV ONETIME ONE Stop: 12/06/20 12:59 Last Admin: 12/06/20 09:41 Dose: 12.5 mls/hr Documented by: Iopamidol (Iopamidol 755 Mg/Ml 100 Ml Bottle) 100 ml IVPUSH ONETIME ONE Stop: 12/05/20 21:34 Last Admin: 12/05/20 21:33 Dose: 100 ml Documented by: Non-Formulary Medication (Alprazolam [Xanax Xr]) 1 mg PO DAILY PRN PRN Reason: Anxiety Omeprazole (Omeprazole 20 Mg Cap.Cr) 20 mg PO ONETIME ONE Stop: 12/06/20 09:00 Last Admin: 12/06/20 09:41 Dose: 20 mg Documented by: Potassium Chloride (Potassium Chloride 20 Meq Tab.Er) 40 meq PO ONETIME ONE Stop: 12/06/20 08:12 Last Admin: 12/06/20 08:28 Dose: 40 meq Documented by: Vancomycin HCl (Pharmacy To Dose - Vancomycin) 1 dose .XX ASDIRECTED [facility] Warfarin Sodium (Warfarin Ask Dosing) 1 each PO ASDIRECTED [facility] Warfarin Sodium (Warfarin 5 Mg Tab) 5 mg PO 12/06/20@1400 JAZMIN Stop: 12/06/20 16:00 Last Admin: 12/06/20 14:25 Dose: 5 mg Documented by: - Exam Quality Assessment: No: Supplemental Oxygen General: Alert, Oriented, Cooperative, No Acute Distress HEENT: EOMI Lungs: Normal Respiratory Effort, Other (faint crtackles in LLL ) Cardiovascular: Regular Rate, Regular Rhythm GI/Abdominal Exam: Soft, Non-Tender Extremities: Normal Inspection Psy/Mental Status: Alert, Normal Mood - Patient Data Lab Results Last 24 hrs: Laboratory Results - last 24 hr 12/07/20 12/07/20 12/07/20 Range/Units 05:20 05:20 05:20 WBC 8.55 (4.0-11.0) K/uL RBC 2.93 L (4.30-5.90) M/uL Hgb 8.1 L (12.0-16.0) g/dL Hct 26.5 L (36.0-46.0) % MCV 90.4 (80.0-98.0) fL MCH 27.6 (27.0-32.0) pg MCHC 30.6 L (31.0-37.0) g/dL RDW Std Deviation 53.8 (28.0-62.0) fl RDW Coeff of Sebastien 16 H (11.0-15.0) % Plt Count 182 (150-400) K/uL MPV 9.60 (7.40-12.00) fL Neut % (Auto) 81.2 H (48.0-80.0) % Lymph % (Auto) 9.8 L (16.0-40.0) % [place] % (Auto) 8.2 (0.0-15.0) % Eos % (Auto) 0.6 (0.0-7.0) % Baso % (Auto) 0.2 (0.0-1.5) % Neut # (Auto) 6.9 H (1.4-5.7) K/uL Lymph # (Auto) 0.8 (0.6-2.4) K/uL [place] # (Auto) 0.7 (0.0-0.8) K/uL Eos # (Auto) 0.1 (0.0-0.7) K/uL Baso # (Auto) 0.0 (0.0-0.1) K/uL Nucleated RBC % 0.0 /100WBC Nucleated RBCs # 0 K/uL INR 2.22 Sodium 138 (136-145) mmol/L Potassium 3.6 (3.5-5.1) mmol/L Chloride 104 (98-107) mmol/L Carbon Dioxide 27.6 (21.0-32.0) mmol/L BUN 9 (7.0-18.0) mg/dL Creatinine 0.9 (0.6-1.0) mg/dL Est Cr Clr Drug Dosing 45.12 mL/min Estimated GFR (MDRD) 59.9 ml/min Glucose 100 (74-106) mg/dL Calcium 8.3 L (8.5-10.1) mg/dL Magnesium 1.8 (1.8-2.4) mg/dL Total Bilirubin 0.4 (0.2-1.0) mg/dL AST 22 (15-37) IU/L ALT 13 L (14-63) IU/L Alkaline Phosphatase 73 (46-116) U/L Total Protein 5.3 L (6.4-8.2) g/dL Albumin 2.0 L (3.4-5.0) g/dL Globulin 3.3 (2.6-4.0) g/dL Albumin/Globulin Ratio 0.6 L (0.9-1.6) Result Diagrams: 12/07/20 05:20 12/07/20 05:20 Brando Results Last 24 hrs: Microbiology 12/05/20 16:00 Aerobic Blood Culture - Preliminary Blood - Venous - Lab Draw NO GROWTH AFTER 1 DAY Anaerobic Blood Culture - Final 12/05/20 15:55 Aerobic Blood Culture - Preliminary Blood - Venous NO GROWTH AFTER 1 DAY Anaerobic Blood Culture - Preliminary NO GROWTH AFTER 1 DAY Sepsis Event Note - Evaluation Sepsis Screening Result: No Definite Risk - Focused Exam Vital Signs: Vital Signs Temp Pulse Resp BP BP Pulse Ox Pulse Ox 12/07/20 14:00 18 96 12/07/20 13:00 14 95/56 L 97 12/07/20 12:00 98.6 F 18 112/47 L 94 L 12/07/20 11:00 19 112/57 L 95 12/07/20 10:00 18 109/56 L 96 12/07/20 09:00 17 119/72 96 12/07/20 08:55 80 119/72 12/07/20 08:00 98.4 F 19 137/70 98 12/07/20 07:00 19 135/61 97 12/07/20 06:00 21 H 122/55 L 93 L 92 L 12/07/20 05:00 22 H 123/54 L 94 L 12/07/20 04:00 98.2 F 21 H 118/71 92 L 12/07/20 03:00 21 H 120/60 95 - Problem List & Annotations (1) Weakness SNOMED Code(s): 19956571 Code(s): R53.1 - WEAKNESS Status: Acute Current Visit: Yes (2) Fall SNOMED Code(s): 7650643, 026491072 Code(s): W19.XXXA - UNSPECIFIED FALL, INITIAL ENCOUNTER Status: Acute Current Visit: Yes (3) UTI (urinary tract infection) SNOMED Code(s): 56576801 Code(s): N39.0 - URINARY TRACT INFECTION, SITE NOT SPECIFIED Status: Acute Current Visit: Yes (4) Familial tremor SNOMED Code(s): 153205623 Code(s): G25.0 - ESSENTIAL TREMOR Status: Acute Current Visit: Yes (5) Acute kidney injury SNOMED Code(s): 67143252, 58239587 Code(s): N17.9 - ACUTE KIDNEY FAILURE, UNSPECIFIED Status: Acute Current Visit: No (6) CHF (congestive heart failure) SNOMED Code(s): 36489793 Code(s): I50.9 - HEART FAILURE, UNSPECIFIED Status: Chronic Priority: Medium Current Visit: No (7) HTN (hypertension) SNOMED Code(s): 72151111 Code(s): I10 - ESSENTIAL (PRIMARY) HYPERTENSION Status: Chronic Priority: Medium Current Visit: No Qualifiers: Hypertension type: essential hypertension Qualified Code(s): I10 - Essential (primary) hypertension - Problem List Review Problem List Initiated/Reviewed/Updated: Yes - My Orders Last 24 Hours: My Active Orders 12/06/20 19:28 ALPRAZolam [Xanax] 0.5 mg PO BEDTIME PRN 12/08/20 05:11 CBC WITH AUTO DIFF [HEME] AM COMPREHENSIVE METABOLIC PN,CMP [CHEM] AM - Plan Plan:: Assessment: 1. Sepsis in setting of possible UTI. 2. Weakness/unwitnessed fall while on anticoagulation 3. Elevated lactic acid:resolved 4. HEIDI:resolved 5. Normocytic anemia:stable 6. Past medical history: CHF with preserved ejection fraction, history of hypertension, history of DVT/PE on warfarin, familial tremor, hypothyroidism and history of multiple falls in the past. 7. Hypokalemia Plan 1. Sepsis/possible UTI: treated for UTI on Nov 29 2020 w. Macrobid ; symptoms however most likely > 3 weeks. Based off cultures and response to regimen: switch to CTX daily until discharge; consider Keflex to complete course when discharged. Mild normocytic anemia today ; most likely dilutional; will hold warfarin today; recheck Hgb in AM and decide to resume based off this. INR therapeutic and no overt signs of acute/active bleeding noted, VSS Bcx negative Continue PT for balance and strengthening Home health will be ordered at discharge PMH: cont home medications if appropriate. Resume Warfarin Meds for tremor continued PT ordered to work on balance
[2020-12-07] MEDS: Primidone 50 MG Tab PO SCH (20:17)
[2020-12-07] MEDS: Rosuvastatin 10 MG Tab PO SCH (20:18)
[2020-12-07] MEDS: rOPINIRole 0.5 MG Tab PO SCH (20:18)
[2020-12-08] MEDS: Levothyroxine 100 MCG Tab PO SCH (06:29)
[2020-12-08 07:03] LABS: BLOOD UREA NITROGEN,BUN 8 mg/dL (7.0-18.0); CARBON DIOXIDE,CO2 27.5 mmol/L (21.0-32.0); CHLORIDE,CL 106 mmol/L (98-107); GLUCOSE RANDOM 94 mg/dL (74-106); POTASSIUM,K 3.6 mmol/L (3.5-5.1); SODIUM,NA 139 mmol/L (136-145)
[2020-12-08] MEDS: Gabapentin 300 MG Cap PO SCH (08:19)
[2020-12-08] MEDS: Carvedilol 3.125 MG Tab PO SCH (08:19)
[2020-12-08 08:20] VITALS: PULSE 75
--- NOTE | 2020-12-08 09:26 | PN ---
[facility] Physician - Brief Progress [id number]/29/2021 09:17[facility] Timothy selby, ABBY - FAUZIA (MARTHA) - FAUZIA BENNETT TOÑA HyacinthDate of Service 12/08/2020 09:17HPI/Events o f Note eICU Progress NotePt is a 80 yo F admitted on 12/05 for UTI with sepsis. She has recovered from sepsis with a normal WBC and LA. Her INR is 2 and her VS are stable.She is currently sitting up in a chair at bedside in [facility]. She had a hgb drop overnight from 9.2 to 8.1 with no signs of bleeding, so she is just awaiting a repeat check prior to d/c home. Case was discussed with her nurse Janay. eIC U Recommendations:1) Complete course of po antibiotics2) Anticpate discharge home today 3) Maintain I NR 2-34) F/U with PCP in one week for recheckThank you for allowing us to participate in the care of your patient.Interventions [id number]-Gqag-yeinjhyy therapies (e.g. VTE, beta gera, etc.), Bleed ing - evaluation and treatment with blood products, Communication with other healthcare providers and /or family, Infection - evaluation and managementElectronically Signed by: RODERICK RUSSO () on 09:25
[2020-12-08] MEDS: cefTRIAXone 1 GM in Premix Bag 1 BAG IV SCH (10:24)
[2020-12-08] MEDS ORDERED: Furosemide 40 MG/4 ML VIAL IVPUSH ONE ×2 (10:49→14:00)
--- NOTE | 2020-12-08 13:59 | PCM.DCSUM1 ---
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 Patient lives alone and had pressed her life alert button due to weakness after a fall. Patient was brought to the ED via EMS. Patient reported to ED provider having not struck her head. Endorsed daughter had come by, as she does daily, to check up on the patient and noticed some left-sided weakness. Per ED note last normal was at 2 PM yesterday. Of note patient is also currently being treated for UTI but cannot recall the name of the medication. (later noted to be Macrobid) ED course: Head CT: No acute intracranial abnormality. No significant change compared to 08/29/2019 CT head Head CTA: No proximal large vessel occlusion or cervical arterial stenosis Neck CTA: No proximal large vessel occlusion or cervical arterial or stenosis Chest x-ray: No active disease seen in the chest. Stable appearance of mild pulmonary fibrosis. Vitals 141/61. Pulse 86. Temperature 102. 98% room air. Labs: Hemoglobin 10.9 Creatinine 1.3. Lactic acid 4.7. UA negative. Bedside: Endorses similar story as above. Reviewed notes from outpatient facility. Had endorsed fatigue, weakness and UTI symptoms along with some pelvic discomfort. UA positive and patient was started on nitrofurantoin Urine cultures suggesting Aerococcus viridans/Enterococcus urinary on November 29, 2020 Hospital course: Patient admitted to the ICU with concerns about falls/weakness with sepsis most likely secondary to a UTI. Lactate had resolved after appropriate fluid resuscitation/ initiation and was started initially on broad-spectrum antibiotics including vancomycin and Zosyn. Repeat cultures could not be obtained as patient had already received antibiotics and urine sample was not sufficient for a repeat culture. Cultures from outpatient facility had been received and had noted that patient was covered for 1 organism but not the other: she was positive for Aerococcus viridans/Aerococcus urinate. Patient had received per outpatient provider Macrobid though her Aerococcus viridans was susceptible to penicillin. Of note pt did have "UTI symptoms" for 3-4 weeks but daughter had endorses she had "waited too long" to come in. HEIDI was also noted with a creatinine of 1.3 which continued to trend down back to her baseline of 0.7 on day of discharge. patient was switched over to ceftriaxone on following day for her UTI. Physical therapy had walked with the patient x2 days in light of her weakness/falls and has been improving and recommended outpatient PT to continue to watch her balance/work on her strength and gait. Hemoglobin had gone from 10.9 to a billy of 8.6 after fluid resuscitation; no overt bleeding noted but held warfarin temporarily (INR still therapeutic). Concerns about possible mild fluid overload with hemodilution in light of remaining labs; one-time dose of 20 mEq IV Lasix given and repeat hemoglobin 10.3 was seen on day of discharge. Patient was in stable condition and eating stooling and voiding without any significant issues. Patient requested discharge. Patient was in stable condition. Based off of sensitivity cultures patient was discharged home with home health, [place] and advised to resume her warfarin and follow-up with her primary care for recheck of her INR. INR today has been therapeutic and no dark stools/bloody stools was noted on day of discharge. Discussed findings and goals of care with Misha, patients son, who is also an employee here at [facility] Discussed need for home health, resuming her Warfarin, and rechecking her Hgb id deemed appropriate by her PCP. Follow up with PCP will be made for the following week; appointment could not be made at discharge as it was Thursday. Advised patient and son that if CP, SOB,, dark stools/bloody stools and or syncope/falls develop to proceed to ED immediately Disposition: home with home health Discharge condition: stable Follow up : PCP - Discharge Data Discharge Date: 12/08/20 Discharge Disposition: Home, W Home Health Agency 06 Condition: Stable - Referral to Home Health Date of Face to Face Encounter: 12/08/20 Reason for Homebound Status: Weakness and deconditioning, hx of repeated falls ; some mechanical in nature Primary Care Physician: Kp Garcia MD Skilled Need: Physical therapy :ambualtion/gaint /balance. OT - Discharge Diagnosis/Problem(s) (1) Weakness SNOMED Code(s): 69435474 ICD Code: R53.1 - WEAKNESS Status: Acute Current Visit: Yes (2) Fall SNOMED Code(s): 5542249, 410562467 ICD Code: W19.XXXA - UNSPECIFIED FALL, INITIAL ENCOUNTER Status: Acute Current Visit: Yes (3) UTI (urinary tract infection) SNOMED Code(s): 07350974 ICD Code: N39.0 - URINARY TRACT INFECTION, SITE NOT SPECIFIED Status: Acute Current Visit: Yes (4) Familial tremor SNOMED Code(s): 885307878 ICD Code: G25.0 - ESSENTIAL TREMOR Status: Acute Current Visit: Yes (5) Acute kidney injury SNOMED Code(s): 67813776, 28032641 ICD Code: N17.9 - ACUTE KIDNEY FAILURE, UNSPECIFIED Status: Acute Current Visit: No (6) CHF (congestive heart failure) SNOMED Code(s): 32016315 ICD Code: I50.9 - HEART FAILURE, UNSPECIFIED Status: Chronic Priority: Medium Current Visit: No (7) HTN (hypertension) SNOMED Code(s): 89628134 ICD Code: I10 - ESSENTIAL (PRIMARY) HYPERTENSION Status: Chronic Priority: Medium Current Visit: No Qualifiers: Hypertension type: essential hypertension Qualified Code(s): I10 - Essential (primary) hypertension - Patient Summary/Data Consults: Consultations 12/05/20 19:30 PT Evaluation and Treatment [CONS] Routine - Patient Instructions Diet: Usual Diet as Tolerated Notify Provider of: Fever, Nausea and/or Vomiting Other/Special Instructions: Advised to follow up with your PCP as scheduled. Please follow up with your PCP regarding a need to recheck your Hgb in 3-4 days. Resume your home Warfarin medication: if you notice any changes in the color of your stools; it your stools become dark or red; please notify your provider immediatly. Complete your course of antibiotics for your urinary tract infection - Discharge Plan *PRESCRIPTION DRUG MONITORING PROGRAM REVIEWED*: No *COPY OF PRESCRIPTION DRUG MONITORING REPORT IN PATIENT SARAH: No Prescriptions/Med Rec: cephALEXin [Keflex] 250 mg PO Q6H 4 Days #16 cap Home Medications: Home Meds ALPRAZolam [Xanax XR] 1 mg PO DAILY PRN 10/19/17 [History] Calcium Carbonate [Calcium] 600 mg PO BID 10/19/17 [History] Cholecalciferol (Vitamin D3) [Vitamin D] 1,000 unit PO DAILY 10/19/17 [History] Furosemide 40 mg PO BID 10/19/17 [History] Levothyroxine [Synthroid] 100 mcg PO DAILY 10/19/17 [History] Primidone 150 mg PO BEDTIME 10/19/17 [History] Warfarin [Coumadin] 5 mg PO SUTUTHSA 10/19/17 [History] carvediloL [Carvedilol] 3.125 mg PO BID 10/19/17 [History] Gabapentin [Neurontin] 300 mg PO BID 08/29/19 [History] Potassium Chloride [Klor-Con M20] 20 meq PO BID 08/30/19 [History] rOPINIRole [Requip] 0.5 mg PO BEDTIME 08/30/19 [History] Rosuvastatin Calcium 20 mg PO BEDTIME 12/05/20 [History] traMADol [Ultram] 50 mg PO TID PRN 12/05/20 [History] Warfarin [Coumadin] 2.5 mg PO MOWEFR 12/06/20 [History] Acetaminophen [Tylenol Extra Strength] 500 mg PO Q4H PRN tablet 12/08/20 [Rx] cephALEXin [Keflex] 250 mg PO Q6H 4 Days #16 cap 12/08/20 [Rx] Oxygen Therapy Mode: Room Air Patient Handouts: Urinary Tract Infection, Adult, [id number], Essential Tremo r, Cephalexin Tablets or Capsules, Sepsis, Self Care, Adult Referrals: Kp Garcia MD [Primary Care Provider] - (Please follow your scheduled appointment and arrive 15 minutes before the time. ) - Discharge Summary/Plan Comment DC Time >30 min.: No - Patient Data Vitals - Most Recent: Last Vital Signs Temp 98.2 F 12/08/20 08:00 Pulse 75 12/08/20 08:19 Resp 16 12/08/20 11:00 BP 119/68 12/08/20 11:00 Pulse Ox 97 12/08/20 11:00 Weight - Most Recent: 86.183 kg I&O - Last 24 hours: Intake & Output 12/07/20 12/08/20 12/08/20 22:59 06:59 14:59 Intake Total 780 Output Total 740 1750 Balance 40 -1750 Lab Results - Last 24 hrs: Laboratory Results - last 24 hr 12/07/20 12/08/20 12/08/20 Range/Units 20:00 05:50 05:50 WBC 6.66 (4.0-11.0) K/uL RBC 2.91 L (4.30-5.90) M/uL Hgb 9.2 L 8.1 L (12.0-16.0) g/dL Hct 30.0 L 26.1 L (36.0-46.0) % MCV 89.7 (80.0-98.0) fL MCH 27.8 (27.0-32.0) pg MCHC 31.0 (31.0-37.0) g/dL RDW Std Deviation 51.7 (28.0-62.0) fl RDW Coeff of Sebastien 16 H (11.0-15.0) % Plt Count 197 (150-400) K/uL MPV 9.60 (7.40-12.00) fL Neut % (Auto) 73.3 (48.0-80.0) % Lymph % (Auto) 14.6 L (16.0-40.0) % [place] % (Auto) 9.8 (0.0-15.0) % Eos % (Auto) 2.0 (0.0-7.0) % Baso % (Auto) 0.3 (0.0-1.5) % Neut # (Auto) 4.9 (1.4-5.7) K/uL Lymph # (Auto) 1.0 (0.6-2.4) K/uL [place] # (Auto) 0.7 (0.0-0.8) K/uL Eos # (Auto) 0.1 (0.0-0.7) K/uL Baso # (Auto) 0.0 (0.0-0.1) K/uL Nucleated RBC % 0.0 /100WBC Nucleated RBCs # 0 K/uL INR Sodium 139 (136-145) mmol/L Potassium 3.6 (3.5-5.1) mmol/L Chloride 106 (98-107) mmol/L Carbon Dioxide 27.5 (21.0-32.0) mmol/L BUN 8 (7.0-18.0) mg/dL Creatinine 0.7 (0.6-1.0) mg/dL Est Cr Clr Drug Dosing 58.01 mL/min Estimated GFR (MDRD) > 60.0 ml/min Glucose 94 (74-106) mg/dL Calcium 8.4 L (8.5-10.1) mg/dL Total Bilirubin 0.2 (0.2-1.0) mg/dL AST 31 (15-37) IU/L ALT 20 (14-63) IU/L Alkaline Phosphatase 70 (46-116) U/L Total Protein 5.3 L (6.4-8.2) g/dL Albumin 2.0 L (3.4-5.0) g/dL Globulin 3.3 (2.6-4.0) g/dL Albumin/Globulin Ratio 0.6 L (0.9-1.6) 12/08/20 12/08/20 Range/Units 05:50 13:33 WBC (4.0-11.0) K/uL RBC (4.30-5.90) M/uL Hgb 10.3 L (12.0-16.0) g/dL Hct 33.9 L (36.0-46.0) % MCV (80.0-98.0) fL MCH (27.0-32.0) pg MCHC (31.0-37.0) g/dL RDW Std Deviation (28.0-62.0) fl RDW Coeff of Sebastien (11.0-15.0) % Plt Count (150-400) K/uL MPV (7.40-12.00) fL Neut % (Auto) (48.0-80.0) % Lymph % (Auto) (16.0-40.0) % [place] % (Auto) (0.0-15.0) % Eos % (Auto) (0.0-7.0) % Baso % (Auto) (0.0-1.5) % Neut # (Auto) (1.4-5.7) K/uL Lymph # (Auto) (0.6-2.4) K/uL [place] # (Auto) (0.0-0.8) K/uL Eos # (Auto) (0.0-0.7) K/uL Baso # (Auto) (0.0-0.1) K/uL Nucleated RBC % /100WBC Nucleated RBCs # K/uL INR 2.03 Sodium (136-145) mmol/L Potassium (3.5-5.1) mmol/L Chloride (98-107) mmol/L Carbon Dioxide (21.0-32.0) mmol/L BUN (7.0-18.0) mg/dL Creatinine (0.6-1.0) mg/dL Est Cr Clr Drug Dosing mL/min Estimated GFR (MDRD) ml/min Glucose (74-106) mg/dL Calcium (8.5-10.1) mg/dL Total Bilirubin (0.2-1.0) mg/dL AST (15-37) IU/L ALT (14-63) IU/L Alkaline Phosphatase (46-116) U/L Total Protein (6.4-8.2) g/dL Albumin (3.4-5.0) g/dL Globulin (2.6-4.0) g/dL Albumin/Globulin Ratio (0.9-1.6) CECILIO Results - Last 24 hrs: Microbiology 12/05/20 16:00 Aerobic Blood Culture - Preliminary Blood - Venous - Lab Draw NO GROWTH AFTER 2 DAYS Anaerobic Blood Culture - Final 12/05/20 15:55 Aerobic Blood Culture - Preliminary Blood - Venous NO GROWTH AFTER 2 DAYS Anaerobic Blood Culture - Preliminary NO GROWTH AFTER 2 DAYS Med Orders - Current: Current Medications Acetaminophen (Acetaminophen 500 Mg Tab) 500 mg PO Q4H PRN PRN Reason: Fever Alprazolam (Alprazolam 0.5 Mg Tab) 0.5 mg PO BEDTIME PRN PRN Reason: Insomnia Last Admin: 12/06/20 21:21 Dose: 0.5 mg Documented by: Carvedilol (Carvedilol 3.125 Mg Tab) 3.125 mg PO BID [facility] Last Admin: 12/08/20 08:19 Dose: 3.125 mg Documented by: Furosemide (Furosemide 40 Mg/4 Ml Vial) 20 mg IVPUSH ONETIME ONE Stop: 12/08/20 14:01 Gabapentin (Gabapentin 300 Mg Cap) 300 mg PO BID [facility] Last Admin: 12/08/20 08:19 Dose: 300 mg Documented by: Ceftriaxone Sodium/Dextrose 1 (gm/ Premix) 50 mls @ 100 mls/hr IV Q24H [facility] Last Admin: 12/08/20 10:24 Dose: 100 mls/hr Documented by: Levothyroxine Sodium (Levothyroxine 100 Mcg Tab) 100 mcg PO ACBRK [facility] Last Admin: 12/08/20 06:29 Dose: 100 mcg Documented by: Ondansetron HCl (Ondansetron 4 Mg Tab.Dis) 4 mg PO Q6H PRN PRN Reason: nausea, able to take PO Primidone (Primidone 50 Mg Tab) 150 mg PO BEDTIME JAZMIN Last Admin: 12/07/20 20:17 Dose: 150 mg Documented by: Ropinirole HCl (Ropinirole 0.5 Mg Tab) 0.5 mg PO BEDTIME JAZMIN Last Admin: 12/07/20 20:18 Dose: 0.5 mg Documented by: Rosuvastatin Calcium (Rosuvastatin 10 Mg Tab) 20 mg PO BEDTIME JAZMIN Last Admin: 12/07/20 20:18 Dose: 20 mg Documented by: Sodium Chloride (Sodium Chloride 0.9% 10 Ml Syringe) 10 ml FLUSH ASDIRECTED PRN PRN Reason: Keep Vein Open Last Admin: 12/05/20 16:50 Dose: 10 ml Documented by: Sodium Chloride (Sodium Chloride 0.9% 2.5 Ml Syringe) 2.5 ml FLUSH ASDIRECTED PRN PRN Reason: Keep Vein Open Tramadol HCl (Tramadol 50 Mg Tab) 50 mg PO TID PRN PRN Reason: Pain Discontinued Medications Ceftriaxone Sodium (Ceftriaxone 1 Gm Vial) Confirm Administered Dose 1 gm .ROUTE .STK-MED ONE Stop: 12/05/20 16:47 Last Admin: 12/05/20 16:50 Dose: Not Given Documented by: Furosemide (Furosemide 40 Mg/4 Ml Vial) 20 mg IVPUSH NOW ONE Stop: 12/08/20 10:50 Last Admin: 12/08/20 12:10 Dose: 20 mg Documented by: Sodium Chloride (Normal Saline) 1,000 mls @ 999 mls/hr IV BOLUS ONE; Protocol Stop: 12/05/20 17:01 Last Admin: 12/05/20 16:48 Dose: 999 mls/hr Documented by: Ceftriaxone Sodium/Dextrose (Rocephin In Dextrose,Iso-Osm 1 Gm/50 Ml) 50 mls @ 100 mls/hr IV ONETIME ONE Stop: 12/05/20 17:14 Last Admin: 12/05/20 16:49 Dose: 100 mls/hr Documented by: Vancomycin HCl 1 gm/ Sodium (Chloride) 250 mls @ 166 mls/hr IV ONETIME ONE Stop: 12/05/20 20:51 Last Admin: 12/05/20 20:08 Dose: 166 mls/hr Documented by: Sodium Chloride (Normal Saline) 1,000 mls @ 999 mls/hr IV STAT ONE Stop: 12/05/20 21:00 Last Admin: 12/05/20 20:07 Dose: 999 mls/hr Documented by: Piperacillin Sod/Tazobactam (Sod 4.5 gm/ Sodium Chloride) 100 mls @ 100 mls/hr IV Q8H [facility] Last Admin: 12/05/20 20:23 Dose: Not Given Documented by: Piperacillin Sod/Tazobactam (Sod 2.25 gm/ Sodium Chloride) 50 mls @ 100 mls/hr IV Q6H [facility] Last Admin: 12/06/20 03:23 Dose: 100 mls/hr Documented by: Vancomycin HCl 1.25 gm/ Sodium (Chloride) 250 mls @ 166.667 mls/hr IV Q24H [facility] Last Admin: 12/06/20 17:07 Dose: 166.667 mls/hr Documented by: Lactated Ringer's (Ringers, Lactated) 1,000 mls @ 125 mls/hr IV ASDIRECTED [facility] Last Admin: 12/07/20 05:31 Dose: 125 mls/hr Documented by: Piperacillin Sod/Tazobactam (Sod 3.375 gm/ Sodium Chloride) 50 mls @ 100 mls/hr IV Q6H [facility] Last Admin: 12/07/20 08:58 Dose: 100 mls/hr Documented by: Magnesium Sulfate 2 gm/ Premix 50 mls @ 12.5 mls/hr IV ONETIME ONE Stop: 12/06/20 12:59 Last Admin: 12/06/20 09:41 Dose: 12.5 mls/hr Documented by: Iopamidol (Iopamidol 755 Mg/Ml 100 Ml Bottle) 100 ml IVPUSH ONETIME ONE Stop: 12/05/20 21:34 Last Admin: 12/05/20 21:33 Dose: 100 ml Documented by: Non-Formulary Medication (Alprazolam [Xanax Xr]) 1 mg PO DAILY PRN PRN Reason: Anxiety Omeprazole (Omeprazole 20 Mg Cap.Cr) 20 mg PO ONETIME ONE Stop: 12/06/20 09:00 Last Admin: 12/06/20 09:41 Dose: 20 mg Documented by: Potassium Chloride (Potassium Chloride 20 Meq Tab.Er) 40 meq PO ONETIME ONE Stop: 12/06/20 08:12 Last Admin: 12/06/20 08:28 Dose: 40 meq Documented by: Vancomycin HCl (Pharmacy To Dose - Vancomycin) 1 dose .XX ASDIRECTED [facility] Warfarin Sodium (Warfarin Ask Dosing) 1 each PO ASDIRECTED [facility] Warfarin Sodium (Warfarin 5 Mg Tab) 5 mg PO 12/06/20@1400 [facility] Stop: 12/06/20 16:00 Last Admin: 12/06/20 14:25 Dose: 5 mg Documented by:
[2020-12-08 15:25] VITALS: BP 115/51
== END 2020-12-08 14:35 | disposition home health service (06) | DRG 872 ==
LOC: MW.ED 15:46 → MW.ICU 19:00
PROVIDERS: ADMIT Student in an Organized Health Care Education/Training Program; ATTEND Student in an Organized Health Care Education/Training Program
DX: A41.9 Sepsis, unspecified organism (principal); R53.1 Weakness; N39.0 Urinary tract infection, site not specified; I50.9 Heart failure, unspecified; N17.9 Acute kidney failure, unspecified; I50.32 Chronic diastolic (congestive) heart failure; Z66 Do not resuscitate; Z88.8 Allergy status to other drugs, medicaments and biological substances; G25.0 Essential tremor; W19.XXXA Unspecified fall, initial encounter; R29.6 Repeated falls; E03.9 Hypothyroidism, unspecified; I11.0 Hypertensive heart disease with heart failure; Z96.649 Presence of unspecified artificial hip joint; Z96.659 Presence of unspecified artificial knee joint; B96.89 Other specified bacterial agents as the cause of diseases classified elsewhere; Z20.822 Contact with and (suspected) exposure to COVID-19; D64.9 Anemia, unspecified; Z79.899 Other long term (current) drug therapy; Z79.01 Long term (current) use of anticoagulants; Z79.890 Hormone replacement therapy; Z86.718 Personal history of other venous thrombosis and embolism; Z88.6 Allergy status to analgesic agent; Z86.711 Personal history of pulmonary embolism; Z98.49 Cataract extraction status, unspecified eye; E83.42 Hypomagnesemia; E87.6 Hypokalemia
CPT/HCPCS: 36415; 70450; 70496; 70498; 71045; 80053; 81001; 83605; 84484; 85025; 87040 ×2; 93005; 96365; 99285; J0696; J7030; 74176; 74176-26; 83735; 84443; 85014; 85018; 85610; 97110-GP; 97162-GP; 97530-GP; A9270-GY; J1940; J2543; J3370; J3475; J7050; J7120; Q9967; U0002

== ENCOUNTER 2020-12-09 15:33 | Inpatient (IN) | payer MEDICARE, BC ==
[2020-12-09] MEDS ORDERED: Sodium Chloride 0.9% 2.5 ML Syringe FLUSH PRN (15:39)
[2020-12-09] MEDS ORDERED: Sodium Chloride 0.9% 1,000 ML IV ONE ×2 (15:39→15:51)
[2020-12-09] MEDS ORDERED: Sodium Chloride 0.9% 10 ML Syringe FLUSH PRN (15:39)
[2020-12-09] MEDS ORDERED: Acetaminophen 500 MG Tab PO ONE (15:49)
--- NOTE | 2020-12-09 15:49 | EDM.PDOC ---
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 Of note patient was recently mated to the hospital after weakness and fall in the setting of UTI. At that time patient had a head CT and chest x-ray which were unremarkable. She was noted to have a temperature of 102 F and a septic work-up was initiated. She has had lactic acidosis to 4.7. UA was positive and urine cultures suggested Aerococcus viridans/Enterococcus. Patient was admitted to the ICU and treated with Zosyn, vancomycin, IV fluids. Patient stayed in the hospital for a few days and then was discharged with Keflex. Today she had an episode of shortness of breath. Her daughter is a respiratory therapist and gave her a DuoNeb treatment. She felt much better but her daughter note that her heart rate was elevated and wanted her checked out. Patient currently denies any complaints other than pain in her right shoulder and right wrist from her fall last week which were not imaged in the emergency department. Currently denies shortness of breath, cough, chest pain, abdominal pain, nausea, vomiting, dysuria. Right Wrist Pain Score (Numeric/FACES): 7 - Related Data Allergies Allergy/AdvReac Type Severity Reaction Status Date / Time NSAIDS (Non-Steroidal Allergy Other Verified 12/09/20 15:40 Anti-Inflamma Home Meds: Home Meds ALPRAZolam [Xanax XR] 1 mg PO DAILY PRN 10/19/17 [History] Calcium Carbonate [Calcium] 600 mg PO BID 10/19/17 [History] Cholecalciferol (Vitamin D3) [Vitamin D] 1,000 unit PO DAILY 10/19/17 [History] Furosemide 40 mg PO BID 10/19/17 [History] Levothyroxine [Synthroid] 100 mcg PO DAILY 10/19/17 [History] Primidone 150 mg PO BEDTIME 10/19/17 [History] Warfarin [Coumadin] 5 mg PO SUTUTHSA 10/19/17 [History] carvediloL [Carvedilol] 3.125 mg PO BID 10/19/17 [History] Gabapentin [Neurontin] 300 mg PO BID 08/29/19 [History] Potassium Chloride [Klor-Con M20] 20 meq PO BID 08/30/19 [History] rOPINIRole [Requip] 0.5 mg PO BEDTIME 08/30/19 [History] Rosuvastatin Calcium 20 mg PO BEDTIME 12/05/20 [History] traMADol [Ultram] 50 mg PO TID PRN 12/05/20 [History] Warfarin [Coumadin] 2.5 mg PO MOWEFR 12/06/20 [History] Acetaminophen [Tylenol Extra Strength] 500 mg PO Q4H PRN tablet 12/08/20 [Rx] cephALEXin [Keflex] 250 mg PO Q6H 4 Days #16 cap 12/08/20 [Rx] Past Medical History HEENT History: Reports: Cataract Cardiovascular History: Reports: Blood Clots/VTE/DVT, Heart Failure Respiratory History: Reports: PE Gastrointestinal History: Reports: None Genitourinary History: Reports: None 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: 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 Neurological History: Reports: None Psychiatric History: Reports: None Endocrine/Metabolic History: Reports: Hypothyroidism Hematologic History: Reports: Other (See Below) Other Hematologic History: blood clot Immunologic History: Reports: None Oncologic (Cancer) History: Reports: None Dermatologic History: Reports: None - Infectious Disease History Infectious Disease History: Reports: Chicken Pox, Measles, Mumps - Past Surgical History Head Surgeries/Procedures: Reports: None HEENT Surgical History: Reports: Cataract Surgery Other HEENT Surgeries/Procedures: wear glasses, upper and lower dentures Cardiovascular Surgical History: Reports: Other (See Below) Other Cardiovascular Surgeries/Procedures: filter Respiratory Surgical History: Reports: Thoracentesis GI Surgical History: Reports: Appendectomy, Bariatric Procedure, Cholecystectomy, Other (See Below) Other GI Surgeries/Procedures: gastric bypass Female Surgical History: Reports: Hysterectomy Musculoskeletal Surgical History: Reports: Hip Replacement, Knee Replacement Other Musculoskeletal Surgeries/Procedures:: left hip and bilat knee Oncologic Surgical History: Reports: None Social & Family History - Family History Family Medical History: No Pertinent Family History - Caffeine Use Caffeine Use: Reports: Coffee ED ROS GENERAL - Review of Systems Review Of Systems: Comprehensive ROS is negative, except as noted in HPI. ED EXAM, GENERAL - Physical Exam Exam: See Below Exam Limited By: No Limitations General Appearance: Alert, WD/WN, No Apparent Distress Eye Exam: Bilateral Eye: EOMI, PERRL Throat/Mouth: Normal Voice, No Airway Compromise Head: Atraumatic, Normocephalic Neck: Normal Inspection, Supple, Non-Tender Respiratory/Chest: No Respiratory Distress, Lungs Clear, Normal Breath Sounds, No Accessory Muscle Use Cardiovascular: Normal Peripheral Pulses, Other (b/l lower extremity edema) GI/Abdominal: Soft, Non-Tender Extremities: Other (swelling without overt deformity to R wrist; TTP of R AC joint) Neurological: Alert, Normal Cognition Psychiatric: Normal Affect, Normal Mood Skin Exam: Warm, Dry, Intact, Normal Color #1 Interpretation EKG Date: 12/09/20 Time: 15:32 Rhythm: Other (sinus rhythm w/ frequent PACs) [place]: Normal P-Wave: Present QRS: Normal ST-T: Normal QT: Normal TN/PQ Interval: 166 EKG Interpretation Comments: Poor quality EKG secondary to patient's underlying Parkinson's disease. No overt ischemic changes. Course - Vital Signs Last Recorded V/S: Last Vital Signs Temp 101.8 F H 12/09/20 15:55 Pulse 119 H 12/09/20 15:40 Resp 20 12/09/20 15:40 BP 105/39 L 12/09/20 15:40 Pulse Ox 98 12/09/20 15:40 - Orders/Labs/Meds Orders: Active Orders 24 hr Category Date Time Status Cardiac Monitoring [RC] . DIRECTED Care 12/09/20 15:40 Active EKG Documentation Completion [RC] STAT Care 12/09/20 15:39 Active Insert Andrea Catheter [Insert Urinary Catheter] [OM.PC] Care 12/09/20 16:00 Ordered Q24H Pulse Oximetry [RC] ASDIRECTED Care 12/09/20 15:40 Active Urinary Catheter Assessment [RC] ASDIRECTED Care 12/09/20 15:49 Active Ang Chest [CT] Stat Exams 12/09/20 18:17 Ordered CTA Abd Pelv w Cont [CT] Stat Exams 12/09/20 18:17 Ordered CULTURE BLOOD [BC] Stat Lab 12/09/20 15:37 Received CULTURE BLOOD [BC] Stat Lab 12/09/20 16:13 Received REFLEX LACTIC ACID YES OR NO [CHEM] Routine Lab 12/09/20 16:37 Received Piperacillin/Tazobactam [Piperacil-Tazobact] 4.5 gm Med 12/09/20 18:16 Ordered Sodium Chloride 0.9% [Normal Saline] 100 ml IV ONETIME Sodium Chloride 0.9% [Saline Flush] Med 12/09/20 15:39 Active 10 ml FLUSH ASDIRECTED PRN Sodium Chloride 0.9% [Saline Flush] Med 12/09/20 15:39 Active 2.5 ml FLUSH ASDIRECTED PRN VANCOmycin 2 GM/400 ML 2 gm Med 12/09/20 18:16 Ordered Premix Bag 1 bag IV STAT Blood Culture x2 Reflex Set [OM.PC] Stat Oth 12/09/20 15:41 Ordered Saline Lock Insert [OM.PC] Stat Oth 12/09/20 15:39 Ordered Medication Orders Piperacillin Sod/Tazobactam (Sod 4.5 gm/ Sodium Chloride) 100 mls @ 100 mls/hr IV ONETIME ONE Stop: 12/09/20 19:15 Vancomycin HCl 2 gm/ Premix 400 mls @ 200 mls/hr IV STAT ONE Stop: 12/09/20 20:15 Sodium Chloride (Sodium Chloride 0.9% 10 Ml Syringe) 10 ml FLUSH ASDIRECTED PRN PRN Reason: Keep Vein Open Last Admin: 12/09/20 15:49 Dose: 10 ml Documented by: CARMEN Sodium Chloride (Sodium Chloride 0.9% 2.5 Ml Syringe) 2.5 ml FLUSH ASDIRECTED PRN PRN Reason: Keep Vein Open Last Admin: 12/09/20 15:49 Dose: 2.5 ml Documented by: CARMEN Labs: Laboratory Tests 12/09/20 12/09/20 12/09/20 Range/Units 15:37 15:37 15:37 WBC 5.69 (4.0-11.0) K/uL RBC 3.55 L (4.30-5.90) M/uL Hgb 9.7 L (12.0-16.0) g/dL Hct 32.2 L (36.0-46.0) % MCV 90.7 (80.0-98.0) fL MCH 27.3 (27.0-32.0) pg MCHC 30.1 L (31.0-37.0) g/dL RDW Std Deviation 53.1 (28.0-62.0) fl RDW Coeff of Sebastien 16 H (11.0-15.0) % Plt Count 288 (150-400) K/uL MPV 9.70 (7.40-12.00) fL Neut % (Auto) 95.5 H (48.0-80.0) % Lymph % (Auto) 3.5 L (16.0-40.0) % [place] % (Auto) 0.5 (0.0-15.0) % Eos % (Auto) 0.5 (0.0-7.0) % Baso % (Auto) 0.0 (0.0-1.5) % Neut # (Auto) 5.4 (1.4-5.7) K/uL Lymph # (Auto) 0.2 L (0.6-2.4) K/uL [place] # (Auto) 0.0 (0.0-0.8) K/uL Eos # (Auto) 0.0 (0.0-0.7) K/uL Baso # (Auto) 0.0 (0.0-0.1) K/uL Nucleated RBC % 0.5 /100WBC Nucleated RBCs # 0 K/uL INR 1.17 APTT 25.8 (18.6-31.3) SEC Sodium (136-145) mmol/L Potassium (3.5-5.1) mmol/L Chloride (98-107) mmol/L Carbon Dioxide (21.0-32.0) mmol/L BUN (7.0-18.0) mg/dL Creatinine (0.6-1.0) mg/dL Est Cr Clr Drug Dosing mL/min Estimated GFR (MDRD) ml/min Glucose (74-106) mg/dL Lactic Acid 7.0 H* (0.4-2.0) mmol/L Calcium (8.5-10.1) mg/dL Magnesium (1.8-2.4) mg/dL Total Bilirubin (0.2-1.0) mg/dL AST (15-37) IU/L ALT (14-63) IU/L Alkaline Phosphatase (46-116) U/L Troponin I (0.000-0.056) ng/mL C-Reactive Protein (0.00-0.90) mg/dL B-Natriuretic Peptide (<100) PG/ML Total Protein (6.4-8.2) g/dL Albumin (3.4-5.0) g/dL Globulin (2.6-4.0) g/dL Albumin/Globulin Ratio (0.9-1.6) Lipase (73-393) U/L Urine Color Urine Appearance Urine pH (5.0-8.0) Ur Specific [place] (1.001-1.035) Urine Protein (NEGATIVE) mg/dL Urine Glucose (UA) (NEGATIVE) mg/dL Urine Ketones (NEGATIVE) mg/dL Urine Occult Blood (NEGATIVE) Urine Nitrite (NEGATIVE) Urine Bilirubin (NEGATIVE) Urine Urobilinogen (<2.0) EU/dL Ur Leukocyte Esterase (NEGATIVE) Urine RBC (0-2/HPF) Urine WBC (0-5/HPF) Ur Epithelial Cells (NONE-FEW) Urine Bacteria (NEGATIVE) SARS-CoV-2 RNA (DEISI) (NEGATIVE) 12/09/20 12/09/20 12/09/20 Range/Units 15:37 15:37 16:45 WBC (4.0-11.0) K/uL RBC (4.30-5.90) M/uL Hgb (12.0-16.0) g/dL Hct (36.0-46.0) % MCV (80.0-98.0) fL MCH (27.0-32.0) pg MCHC (31.0-37.0) g/dL RDW Std Deviation (28.0-62.0) fl RDW Coeff of Sebastien (11.0-15.0) % Plt Count (150-400) K/uL MPV (7.40-12.00) fL Neut % (Auto) (48.0-80.0) % Lymph % (Auto) (16.0-40.0) % [place] % (Auto) (0.0-15.0) % Eos % (Auto) (0.0-7.0) % Baso % (Auto) (0.0-1.5) % Neut # (Auto) (1.4-5.7) K/uL Lymph # (Auto) (0.6-2.4) K/uL [place] # (Auto) (0.0-0.8) K/uL Eos # (Auto) (0.0-0.7) K/uL Baso # (Auto) (0.0-0.1) K/uL Nucleated RBC % /100WBC Nucleated RBCs # K/uL INR APTT (18.6-31.3) SEC Sodium 142 (136-145) mmol/L Potassium 3.4 L (3.5-5.1) mmol/L Chloride 104 (98-107) mmol/L Carbon Dioxide 21.4 (21.0-32.0) mmol/L BUN 8 (7.0-18.0) mg/dL Creatinine 1.2 H (0.6-1.0) mg/dL Est Cr Clr Drug Dosing 35.15 mL/min Estimated GFR (MDRD) 43.0 ml/min Glucose 84 (74-106) mg/dL Lactic Acid (0.4-2.0) mmol/L Calcium 8.8 (8.5-10.1) mg/dL Magnesium 1.4 L (1.8-2.4) mg/dL Total Bilirubin 0.3 (0.2-1.0) mg/dL AST 40 H (15-37) IU/L ALT 29 (14-63) IU/L Alkaline Phosphatase 110 (46-116) U/L Troponin I < 0.050 (0.000-0.056) ng/mL C-Reactive Protein 9.00 H (0.00-0.90) mg/dL B-Natriuretic Peptide 239 H (<100) PG/ML Total Protein 6.5 (6.4-8.2) g/dL Albumin 2.6 L (3.4-5.0) g/dL Globulin 3.9 (2.6-4.0) g/dL Albumin/Globulin Ratio 0.7 L (0.9-1.6) Lipase 89 (73-393) U/L Urine Color Urine Appearance Urine pH (5.0-8.0) Ur Specific [place] (1.001-1.035) Urine Protein (NEGATIVE) mg/dL Urine Glucose (UA) (NEGATIVE) mg/dL Urine Ketones (NEGATIVE) mg/dL Urine Occult Blood (NEGATIVE) Urine Nitrite (NEGATIVE) Urine Bilirubin (NEGATIVE) Urine Urobilinogen (<2.0) EU/dL Ur Leukocyte Esterase (NEGATIVE) Urine RBC (0-2/HPF) Urine WBC (0-5/HPF) Ur Epithelial Cells (NONE-FEW) Urine Bacteria (NEGATIVE) SARS-CoV-2 RNA (DEISI) NEGATIVE (NEGATIVE) 12/09/20 Range/Units 16:45 WBC (4.0-11.0) K/uL RBC (4.30-5.90) M/uL Hgb (12.0-16.0) g/dL Hct (36.0-46.0) % MCV (80.0-98.0) fL MCH (27.0-32.0) pg MCHC (31.0-37.0) g/dL RDW Std Deviation (28.0-62.0) fl RDW Coeff of [place]ien (11.0-15.0) % Plt Count (150-400) K/uL MPV (7.40-12.00) fL Neut % (Auto) (48.0-80.0) % Lymph % (Auto) (16.0-40.0) % [place] % (Auto) (0.0-15.0) % Eos % (Auto) (0.0-7.0) % Baso % (Auto) (0.0-1.5) % Neut # (Auto) (1.4-5.7) K/uL Lymph # (Auto) (0.6-2.4) K/uL [place] # (Auto) (0.0-0.8) K/uL Eos # (Auto) (0.0-0.7) K/uL Baso # (Auto) (0.0-0.1) K/uL Nucleated RBC % /100WBC Nucleated RBCs # K/uL INR APTT (18.6-31.3) SEC Sodium (136-145) mmol/L Potassium (3.5-5.1) mmol/L Chloride (98-107) mmol/L Carbon Dioxide (21.0-32.0) mmol/L BUN (7.0-18.0) mg/dL Creatinine (0.6-1.0) mg/dL Est Cr Clr Drug Dosing mL/min Estimated GFR (MDRD) ml/min Glucose (74-106) mg/dL Lactic Acid (0.4-2.0) mmol/L Calcium (8.5-10.1) mg/dL Magnesium (1.8-2.4) mg/dL Total Bilirubin (0.2-1.0) mg/dL AST (15-37) IU/L ALT (14-63) IU/L Alkaline Phosphatase (46-116) U/L Troponin I (0.000-0.056) ng/mL C-Reactive Protein (0.00-0.90) mg/dL B-Natriuretic Peptide (<100) PG/ML Total Protein (6.4-8.2) g/dL Albumin (3.4-5.0) g/dL Globulin (2.6-4.0) g/dL Albumin/Globulin Ratio (0.9-1.6) Lipase (73-393) U/L Urine Color YELLOW Urine Appearance CLEAR Urine pH 7.0 (5.0-8.0) Ur Specific [place] 1.015 (1.001-1.035) Urine Protein TRACE H (NEGATIVE) mg/dL Urine Glucose (UA) NEGATIVE (NEGATIVE) mg/dL Urine Ketones NEGATIVE (NEGATIVE) mg/dL Urine Occult Blood NEGATIVE (NEGATIVE) Urine Nitrite NEGATIVE (NEGATIVE) Urine Bilirubin NEGATIVE (NEGATIVE) Urine Urobilinogen 0.2 (<2.0) EU/dL Ur Leukocyte Esterase NEGATIVE (NEGATIVE) Urine RBC 0-2 (0-2/HPF) Urine WBC 0-2 (0-5/HPF) Ur Epithelial Cells FEW (NONE-FEW) Urine Bacteria FEW (NEGATIVE) SARS-CoV-2 RNA (DEISI) (NEGATIVE) Meds: Medications Generic Name Dose Route Start Last Admin Trade Name Freq PRN Reason Stop Dose Admin Piperacillin Sod/Tazobactam 100 mls @ 100 mls/hr 12/09/20 18:16 Sod 4.5 gm/ Sodium Chloride IV 12/09/20 19:15 ONETIME ONE Vancomycin HCl 2 gm/ Premix 400 mls @ 200 mls/hr 12/09/20 18:16 IV 12/09/20 20:15 STAT ONE Sodium Chloride 10 ml 12/09/20 15:39 12/09/20 15:49 Sodium Chloride 0.9% 10 Ml Syringe FLUSH 10 ml ASDIRECTED PRN Administration Keep Vein Open Sodium Chloride 2.5 ml 12/09/20 15:39 12/09/20 15:49 Sodium Chloride 0.9% 2.5 Ml Syringe FLUSH 2.5 ml ASDIRECTED PRN Administration Keep Vein Open Discontinued Medications Generic Name Dose Route Start Last Admin Trade Name Rossana PRN Reason Stop Dose Admin Acetaminophen 1,000 mg 12/09/20 15:49 12/09/20 15:55 Acetaminophen 500 Mg Tab PO 12/09/20 15:50 1,000 mg ONETIME ONE Administration Sodium Chloride 1,000 mls @ 999 mls/hr 12/09/20 15:39 12/09/20 15:49 Normal Saline IV 12/09/20 16:39 999 mls/hr .Bolus ONE Administration Sodium Chloride 1,000 mls @ 999 mls/hr 12/09/20 15:51 12/09/20 16:43 Normal Saline IV 12/09/20 16:51 999 mls/hr .Bolus ONE Administration - Re-Assessments/Exams Free Text/Narrative Re-Assessment/Exam: 12/09/20 18:[address] Bell who agrees with plan to admit patient. Broad-spectrum antibiotics ordered. Departure - Departure Time of Disposition: 18:19 Disposition: Admitted As Inpatient 64 Condition: Fair Clinical Impression: Sepsis Qualifiers: Sepsis type: sepsis due to unspecified organism Sepsis acute organ dysfunction status: unspecified Qualified Code(s): A41.9 - Sepsis, unspecified organism - Discharge Information Forms: ED Department Discharge Critical Care Note - Critical Care Note Total Time (mins): 35 Sepsis Event Note (ED) - Evaluation Sepsis Screening Result: Possible Severe Sepsis Risk - Focused Exam Vital Signs: Vital Signs Temp Temp Pulse Resp BP Pulse Ox 12/09/20 15:55 101.8 F H 12/09/20 15:40 101.8 F H 119 H 20 105/39 L 98 - My Orders Last 24 Hours: My Active Orders 12/09/20 15:37 CULTURE BLOOD [BC] Stat 12/09/20 15:39 EKG Documentation Completion [RC] STAT Sodium Chloride 0.9% [Saline Flush] 10 ml FLUSH ASDIRECTED PRN Sodium Chloride 0.9% [Saline Flush] 2.5 ml FLUSH ASDIRECTED PRN Saline Lock Insert [OM.PC] Stat 12/09/20 15:40 Cardiac Monitoring [RC] . DIRECTED Pulse Oximetry [RC] ASDIRECTED 12/09/20 15:41 Blood Culture x2 Reflex Set [OM.PC] Stat 12/09/20 15:49 Urinary Catheter Assessment [RC] ASDIRECTED 12/09/20 16:00 Insert Andrea Catheter [Insert Urinary Catheter] [OM.PC] Q24H 12/09/20 16:13 CULTURE BLOOD [BC] Stat 12/09/20 16:37 REFLEX LACTIC ACID YES OR NO [CHEM] Routine 12/09/20 18:16 Piperacillin/Tazobactam [Piperacil-Tazobact] 4.5 gm Sodium Chloride 0.9% [Normal Saline] 100 ml IV ONETIME VANCOmycin 2 GM/400 ML 2 gm Premix Bag 1 bag IV STAT 12/09/20 18:17 Ang Chest [CT] Stat CTA Abd Pelv w Cont [CT] Stat - Assessment/Plan Last 24 Hours: My Active Orders 12/09/20 15:37 CULTURE BLOOD [BC] Stat 12/09/20 15:39 EKG Documentation Completion [RC] STAT Sodium Chloride 0.9% [Saline Flush] 10 ml FLUSH ASDIRECTED PRN Sodium Chloride 0.9% [Saline Flush] 2.5 ml FLUSH ASDIRECTED PRN Saline Lock Insert [OM.PC] Stat 12/09/20 15:40 Cardiac Monitoring [RC] . DIRECTED Pulse Oximetry [RC] ASDIRECTED 12/09/20 15:41 Blood Culture x2 Reflex Set [OM.PC] Stat 12/09/20 15:49 Urinary Catheter Assessment [RC] ASDIRECTED 12/09/20 16:00 Insert Andrea Catheter [Insert Urinary Catheter] [OM.PC] Q24H 12/09/20 16:13 CULTURE BLOOD [BC] Stat 12/09/20 16:37 REFLEX LACTIC ACID YES OR NO [CHEM] Routine 12/09/20 18:16 Piperacillin/Tazobactam [Piperacil-Tazobact] 4.5 gm Sodium Chloride 0.9% [Normal Saline] 100 ml IV ONETIME VANCOmycin 2 GM/400 ML 2 gm Premix Bag 1 bag IV STAT 12/09/20 18:17 Ang Chest [CT] Stat CTA Abd Pelv w Cont [CT] Stat
[2020-12-09 16:24] LABS: BLOOD UREA NITROGEN,BUN 8 mg/dL (7.0-18.0); CARBON DIOXIDE,CO2 21.4 mmol/L (21.0-32.0); CHLORIDE,CL 104 mmol/L (98-107); GLUCOSE RANDOM 84 mg/dL (74-106); LIPASE 89 U/L (73-393); POTASSIUM,K 3.4 mmol/L (3.5-5.1); SODIUM,NA 142 mmol/L (136-145)
--- NOTE | 2020-12-09 18:03 | CR ---
INDICATION: Fall. TECHNIQUE: Portable AP chest radiograph. COMPARISON: 12/05/2020. FINDINGS: Mildly reduced lung volumes with vascular crowding. No focal pulmonary opacity, pneumothorax, or pleural effusion identified. Unchanged cardiac and mediastinal contours. IMPRESSION: No acute cardiopulmonary findings. Dictated by Raleigh Uribe MD @ 12/09/2020 6:00:35 PM Dictated by: Raleigh Uribe MD @ 12/09/2020 18:00:40 (Electronically Signed)
--- NOTE | 2020-12-09 18:05 | CR ---
INDICATION: Fall. TECHNIQUE: Right shoulder radiographs, 2 views. COMPARISON: 08/07/2020. FINDINGS: Diffuse demineralization. No dislocation or displaced fracture. Similar glenohumeral and AC joint degenerative changes. Irregular mineralized densities overlying the acromiohumeral interval may reflect rotator cuff calcific deposition and/or irregular osteophytes. IMPRESSION: Right Shoulder without dislocation or displaced fracture. Dictated by Raleigh Uribe MD @ 12/09/2020 6:02:32 PM Dictated by: Raleigh Uribe MD @ 12/09/2020 18:02:37 (Electronically Signed)
--- NOTE | 2020-12-09 18:07 | CR ---
INDICATION: Fall. TECHNIQUE: Right wrist radiographs, 3 views. COMPARISON: None available. FINDINGS: Diffuse demineralization. No dislocation or displaced fracture. Joint space narrowing and osteophytosis throughout the carpus, most pronounced at the triscaphe and 1st CMC joints. Patchy mineralized densities in the region of the ulnar styloid, possibly chondrocalcinosis. Nonspecific soft tissue prominence about the wrist. IMPRESSION: 1. No dislocation or displaced fracture. 2. Advanced right carpal arthrosis, most pronounced at the thumb base. Dictated by Raleigh Uribe MD @ 12/09/2020 6:04:45 PM Dictated by: Raleigh Uribe MD @ 12/09/2020 18:04:48 (Electronically Signed)
[2020-12-09] MEDS ORDERED: Piperacillin/Tazobactam 4.5 GM in Sodium Chloride 0.9% 100 ML IV ONE (18:16)
[2020-12-09] MEDS ORDERED: VANCOmycin 2 GM/400 ML 2 GM in Premix Bag 1 BAG IV ONE (18:16)
[2020-12-09] MEDS ORDERED: Albuterol/Ipratropium 3.0-0.5 MG/3 ML Neb Soln NEB PRN (18:45)
[2020-12-09] MEDS ORDERED: Ondansetron 4 MG/2 ML SDV IVPUSH PRN (18:45)
[2020-12-09] MEDS ORDERED: Acetaminophen 325 MG Tab PO PRN (18:45)
[2020-12-09] MEDS ORDERED: Iopamidol 755 MG/ML 500 ML Multipack Bottle IVPUSH ONE (18:50)
[2020-12-09] MEDS ORDERED: ALPRAZOLAM 1 MG PO PRN (18:57)
--- NOTE | 2020-12-09 19:38 | CT ---
Please disregard the previous report which is incorrect and incomplete. Indication: Sepsis Technique: Contrast enhanced CT chest abdomen and pelvis. 100 mL Isovue 370 Comparison: CT abdomen pelvis 12/05/2020 Findings: Normal caliber thoracic aorta Heart size is normal. No pulmonary emboli. No mediastinal or hilar adenopathy. No pericardial effusion. Subtle bilateral centrilobular ground-glass nodules lingular and basilar atelectasis right lower lobe bronchiectasis is no effusion. Spleen is unremarkable small hiatal hernia. Thickening of the distal esophagus lower paraesophageal prominent lymph nodes Unremarkable right adrenal gland. Thickening of the left adrenal gland without discrete nodule seen. Gastric bypass change. Cholecystectomy. Biliary dilatation. IVC filter. Pancreas appears unremarkable. Liver otherwise is unremarkable. Kidneys enhance symmetrically. No hydronephrosis right renal cyst. Normal caliber abdominal aorta. Large amount of stool in the rectum and colon. Appendix not clearly identified however no pericecal inflammatory change. No obstruction. Diverticulosis urinary bladder unremarkable. Hysterectomy. Hip arthroplasty on the left causes streak artifact. There is soft tissue stranding and thickening around the right medial gluteal fold without discrete abscess seen. No suspicious bony lesions. Impression: 1. No pulmonary emboli. 2. Subtle centrilobular nodular opacities may reflect an infectious or inflammatory process to include atypical infections. 3. No acute findings in the abdomen or pelvis. Large amount stool within the colon. 4. Thickening of the distal esophagus could be seen with esophagitis. Mildly prominent lower paraesophageal lymph nodes. Consider GI consultation. 4. Soft tissue thickening and inflammatory change around the right medial gluteal fold. No abscess. Please note that all CT scans at this facility use dose modulation, iterative reconstruction, and/or weight-based dosing when appropriate to reduce radiation dose to as low as reasonably achievable. Dictated by Christine Watson MD @ 12/09/2020 8:08:[address] Christine Watson @ Dec 09 2020 8:08PM
--- NOTE | 2020-12-09 20:01 | PCM.HP.2 ---
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 Patient states that she went to use restroom today to urinate and after urination when she tried to get back up she felt very weak and she had to sit back down on the commode, she called out to her family member who was able to help her to get to the living room upon getting the living room she started feeling extremely short of breath states that she could not catch her breath. Her [id number] administered some breathing treatments with minimal relief. Patient was found to be hypoxic reportedly in 70s. Patient was also noticed to have elevated heart rate as well. EMS was called to take the patient to the hospital., Denies any associated chest pain, palpitations, abdominal pain, nausea, vomiting, syncope, presyncope, vision changes, urinary or fecal incontinence. Patient states that she did feel a little flushed and warm while she was in the bathroom but denies feeling any chills. Patient states that she feels " cold" all the time and that it is not a new feeling for her. Of note patient was recently mated to the hospital after weakness and fall in the setting of UTI (diagnosed from previous ER visit). At that time patient imaging was unremarkable. She was noted to have a temperature of 102 F and a septic work-up was initiated. She has had lactic acidosis to 4.7. Urine cultures which were obtained from the prior ER visit suggested Aerococcus viridans/Enterococcus. Patient was admitted to the ICU and treated with Zosyn, vancomycin, IV fluids. Patient stayed in the hospital for a few days and then was discharged with Keflex. Patient currently denies any complaints other than pain in her right shoulder and right wrist from her fall last week which were not imaged in the emergency department. Currently denies shortness of breath, cough, chest pain, abdominal pain, nausea, vomiting, dysuria. In the ER patient was found to be febrile as well as tachycardic so septic work-up was initiated patient was started on IV fluids and IV antibiotics were ordered blood cultures were ordered UA was nonsignificant for UTI. CTA chest was ordered as well in setting of hypoxia and tachycardia which ruled out pulmonary embolism. Lab work revealed no leukocytosis but patient had an elevated lactate of 7. Patient was admitted to the hospital for further management Right Wrist Pain Score (Numeric/FACES): 7 - Related Data Allergies/Adverse Reactions: Allergies Allergy/AdvReac Type Severity Reaction Status Date / Time NSAIDS (Non-Steroidal Allergy Other Verified 12/09/20 15:40 Anti-Inflamma Home Medications: Home Meds ALPRAZolam [Xanax XR] 1 mg PO DAILY PRN 10/19/17 [History] Calcium Carbonate [Calcium] 600 mg PO BID 10/19/17 [History] Cholecalciferol (Vitamin D3) [Vitamin D] 1,000 unit PO DAILY 10/19/17 [History] Furosemide 40 mg PO BID 10/19/17 [History] Levothyroxine [Synthroid] 100 mcg PO DAILY 10/19/17 [History] Primidone 150 mg PO BEDTIME 10/19/17 [History] Warfarin [Coumadin] 5 mg PO SUTUTHSA 10/19/17 [History] carvediloL [Carvedilol] 3.125 mg PO BID 10/19/17 [History] Gabapentin [Neurontin] 300 mg PO BID 08/29/19 [History] Potassium Chloride [Klor-Con M20] 20 meq PO BID 08/30/19 [History] rOPINIRole [Requip] 0.5 mg PO BEDTIME 08/30/19 [History] Rosuvastatin Calcium 20 mg PO BEDTIME 12/05/20 [History] traMADol [Ultram] 50 mg PO TID PRN 12/05/20 [History] Warfarin [Coumadin] 2.5 mg PO MOWEFR 12/06/20 [History] Acetaminophen [Tylenol Extra Strength] 500 mg PO Q4H PRN tablet 12/08/20 [Rx] cephALEXin [Keflex] 250 mg PO Q6H 4 Days #16 cap 12/08/20 [Rx] Past Medical History HEENT History: Reports: Cataract Cardiovascular History: Reports: Blood Clots/VTE/DVT, Heart Failure Respiratory History: Reports: PE Gastrointestinal History: Reports: None Genitourinary History: Reports: None [employer] WORKER History: Reports: None Neurological History: Reports: None Psychiatric History: Reports: None Endocrine/Metabolic History: Reports: Hypothyroidism Hematologic History: Reports: Other (See Below) Other Hematologic History: blood clot Immunologic History: Reports: None Oncologic (Cancer) History: Reports: None Dermatologic History: Reports: None - Infectious Disease History Infectious Disease History: Reports: Chicken Pox, Measles, Mumps - Past Surgical History Head Surgeries/Procedures: Reports: None HEENT Surgical History: Reports: Cataract Surgery Other HEENT Surgeries/Procedures: wear glasses, upper and lower dentures Cardiovascular Surgical History: Reports: Other (See Below) Other Cardiovascular Surgeries/Procedures: filter Respiratory Surgical History: Reports: Thoracentesis GI Surgical History: Reports: Appendectomy, Bariatric Procedure, Cholecystectomy, Other (See Below) Other GI Surgeries/Procedures: gastric bypass Female Surgical History: Reports: Hysterectomy Musculoskeletal Surgical History: Reports: Hip Replacement, Knee Replacement Other Musculoskeletal Surgeries/Procedures:: left hip and bilat knee Oncologic Surgical History: Reports: None Social & Family History - Family History Family Medical History: No Pertinent Family History - Tobacco Use Tobacco Use Status *Q: Never Tobacco User - Caffeine Use Caffeine Use: Reports: None - Recreational Drug Use Recreational Drug Use: No H&P Review of Systems - Review of Systems: Review Of Systems: See Below General: Reports: Fever. Denies: Chills, Malaise, Weakness, Fatigue Pulmonary: Reports: Shortness of Breath. Denies: Wheezing, Pleuritic Chest Pain, Cough Cardiovascular: Denies: Chest Pain, Palpitations, Dyspnea on Exertion Gastrointestinal: Denies: Abdominal Pain, Anorexia, Black Stool Genitourinary: Denies: Dysuria, Frequency, Burning, Pain, Flank Pain Musculoskeletal: Denies: Neck Pain, Shoulder Pain, Arm Pain Skin: Denies: Cyanosis, Jaundice, Mottled Psychiatric: Denies: Confusion, Depression, Mood Lability Neurological: Denies: Confusion, Dizziness, Headache, Numbness Exam - Exam Exam: See Below - Vital Signs Vital Signs: Last Vital Signs Temp 37.0 C 12/09/20 19:47 Pulse 96 12/09/20 19:47 Resp 19 12/09/20 19:47 BP 122/54 L 12/09/20 19:47 Pulse Ox 98 12/09/20 19:47 Weight: 81.647 kg - Exam General: Alert, Oriented Neck: Supple, Trachea Midline Lungs: Clear to Auscultation, Normal Respiratory Effort. No: Crackles, Rales, Rhonchi, Wheezing Cardiovascular: Regular Rate, Regular Rhythm, Normal S1, Normal S2 GI/Abdominal Exam: Normal Bowel Sounds, Soft, Non-Tender - Patient Data Lab Results Last 24 hrs: Laboratory Results - last 24 hr 12/09/20 12/09/20 12/09/20 Range/Units 15:37 15:37 15:37 WBC 5.69 (4.0-11.0) K/uL RBC 3.55 L (4.30-5.90) M/uL Hgb 9.7 L (12.0-16.0) g/dL Hct 32.2 L (36.0-46.0) % MCV 90.7 (80.0-98.0) fL MCH 27.3 (27.0-32.0) pg MCHC 30.1 L (31.0-37.0) g/dL RDW Std Deviation 53.1 (28.0-62.0) fl RDW Coeff of Sebastien 16 H (11.0-15.0) % Plt Count 288 (150-400) K/uL MPV 9.70 (7.40-12.00) fL Neut % (Auto) 95.5 H (48.0-80.0) % Lymph % (Auto) 3.5 L (16.0-40.0) % [place] % (Auto) 0.5 (0.0-15.0) % Eos % (Auto) 0.5 (0.0-7.0) % Baso % (Auto) 0.0 (0.0-1.5) % Neut # (Auto) 5.4 (1.4-5.7) K/uL Lymph # (Auto) 0.2 L (0.6-2.4) K/uL [place] # (Auto) 0.0 (0.0-0.8) K/uL Eos # (Auto) 0.0 (0.0-0.7) K/uL Baso # (Auto) 0.0 (0.0-0.1) K/uL Nucleated RBC % 0.5 /100WBC Nucleated RBCs # 0 K/uL INR 1.17 APTT 25.8 (18.6-31.3) SEC Sodium (136-145) mmol/L Potassium (3.5-5.1) mmol/L Chloride (98-107) mmol/L Carbon Dioxide (21.0-32.0) mmol/L BUN (7.0-18.0) mg/dL Creatinine (0.6-1.0) mg/dL Est Cr Clr Drug Dosing mL/min Estimated GFR (MDRD) ml/min Glucose (74-106) mg/dL Lactic Acid 7.0 H* (0.4-2.0) mmol/L Calcium (8.5-10.1) mg/dL Magnesium (1.8-2.4) mg/dL Total Bilirubin (0.2-1.0) mg/dL AST (15-37) IU/L ALT (14-63) IU/L Alkaline Phosphatase (46-116) U/L Troponin I (0.000-0.056) ng/mL C-Reactive Protein (0.00-0.90) mg/dL B-Natriuretic Peptide (<100) PG/ML Total Protein (6.4-8.2) g/dL Albumin (3.4-5.0) g/dL Globulin (2.6-4.0) g/dL Albumin/Globulin Ratio (0.9-1.6) Lipase (73-393) U/L Urine Color Urine Appearance Urine pH (5.0-8.0) Ur Specific [place] (1.001-1.035) Urine Protein (NEGATIVE) mg/dL Urine Glucose (UA) (NEGATIVE) mg/dL Urine Ketones (NEGATIVE) mg/dL Urine Occult Blood (NEGATIVE) Urine Nitrite (NEGATIVE) Urine Bilirubin (NEGATIVE) Urine Urobilinogen (<2.0) EU/dL Ur Leukocyte Esterase (NEGATIVE) Urine RBC (0-2/HPF) Urine WBC (0-5/HPF) Ur Epithelial Cells (NONE-FEW) Urine Bacteria (NEGATIVE) SARS-CoV-2 RNA (DEISI) (NEGATIVE) 12/09/20 12/09/20 12/09/20 Range/Units 15:37 15:37 16:45 WBC (4.0-11.0) K/uL RBC (4.30-5.90) M/uL Hgb (12.0-16.0) g/dL Hct (36.0-46.0) % MCV (80.0-98.0) fL MCH (27.0-32.0) pg MCHC (31.0-37.0) g/dL RDW Std Deviation (28.0-62.0) fl RDW Coeff of Sebastien (11.0-15.0) % Plt Count (150-400) K/uL MPV (7.40-12.00) fL Neut % (Auto) (48.0-80.0) % Lymph % (Auto) (16.0-40.0) % [place] % (Auto) (0.0-15.0) % Eos % (Auto) (0.0-7.0) % Baso % (Auto) (0.0-1.5) % Neut # (Auto) (1.4-5.7) K/uL Lymph # (Auto) (0.6-2.4) K/uL [place] # (Auto) (0.0-0.8) K/uL Eos # (Auto) (0.0-0.7) K/uL Baso # (Auto) (0.0-0.1) K/uL Nucleated RBC % /100WBC Nucleated RBCs # K/uL INR APTT (18.6-31.3) SEC Sodium 142 (136-145) mmol/L Potassium 3.4 L (3.5-5.1) mmol/L Chloride 104 (98-107) mmol/L Carbon Dioxide 21.4 (21.0-32.0) mmol/L BUN 8 (7.0-18.0) mg/dL Creatinine 1.2 H (0.6-1.0) mg/dL Est Cr Clr Drug Dosing 35.15 mL/min Estimated GFR (MDRD) 43.0 ml/min Glucose 84 (74-106) mg/dL Lactic Acid (0.4-2.0) mmol/L Calcium 8.8 (8.5-10.1) mg/dL Magnesium 1.4 L (1.8-2.4) mg/dL Total Bilirubin 0.3 (0.2-1.0) mg/dL AST 40 H (15-37) IU/L ALT 29 (14-63) IU/L Alkaline Phosphatase 110 (46-116) U/L Troponin I < 0.050 (0.000-0.056) ng/mL C-Reactive Protein 9.00 H (0.00-0.90) mg/dL B-Natriuretic Peptide 239 H (<100) PG/ML Total Protein 6.5 (6.4-8.2) g/dL Albumin 2.6 L (3.4-5.0) g/dL Globulin 3.9 (2.6-4.0) g/dL Albumin/Globulin Ratio 0.7 L (0.9-1.6) Lipase 89 (73-393) U/L Urine Color Urine Appearance Urine pH (5.0-8.0) Ur Specific [place] (1.001-1.035) Urine Protein (NEGATIVE) mg/dL Urine Glucose (UA) (NEGATIVE) mg/dL Urine Ketones (NEGATIVE) mg/dL Urine Occult Blood (NEGATIVE) Urine Nitrite (NEGATIVE) Urine Bilirubin (NEGATIVE) Urine Urobilinogen (<2.0) EU/dL Ur Leukocyte Esterase (NEGATIVE) Urine RBC (0-2/HPF) Urine WBC (0-5/HPF) Ur Epithelial Cells (NONE-FEW) Urine Bacteria (NEGATIVE) SARS-CoV-2 RNA (DEISI) NEGATIVE (NEGATIVE) 12/09/20 Range/Units 16:45 WBC (4.0-11.0) K/uL RBC (4.30-5.90) M/uL Hgb (12.0-16.0) g/dL Hct (36.0-46.0) % MCV (80.0-98.0) fL MCH (27.0-32.0) pg MCHC (31.0-37.0) g/dL RDW Std Deviation (28.0-62.0) fl RDW Coeff of Sebastien (11.0-15.0) % Plt Count (150-400) K/uL MPV (7.40-12.00) fL Neut % (Auto) (48.0-80.0) % Lymph % (Auto) (16.0-40.0) % [place] % (Auto) (0.0-15.0) % Eos % (Auto) (0.0-7.0) % Baso % (Auto) (0.0-1.5) % Neut # (Auto) (1.4-5.7) K/uL Lymph # (Auto) (0.6-2.4) K/uL [place] # (Auto) (0.0-0.8) K/uL Eos # (Auto) (0.0-0.7) K/uL Baso # (Auto) (0.0-0.1) K/uL Nucleated RBC % /100WBC Nucleated RBCs # K/uL INR APTT (18.6-31.3) SEC Sodium (136-145) mmol/L Potassium (3.5-5.1) mmol/L Chloride (98-107) mmol/L Carbon Dioxide (21.0-32.0) mmol/L BUN (7.0-18.0) mg/dL Creatinine (0.6-1.0) mg/dL Est Cr Clr Drug Dosing mL/min Estimated GFR (MDRD) ml/min Glucose (74-106) mg/dL Lactic Acid (0.4-2.0) mmol/L Calcium (8.5-10.1) mg/dL Magnesium (1.8-2.4) mg/dL Total Bilirubin (0.2-1.0) mg/dL AST (15-37) IU/L ALT (14-63) IU/L Alkaline Phosphatase (46-116) U/L Troponin I (0.000-0.056) ng/mL C-Reactive Protein (0.00-0.90) mg/dL B-Natriuretic Peptide (<100) PG/ML Total Protein (6.4-8.2) g/dL Albumin (3.4-5.0) g/dL Globulin (2.6-4.0) g/dL Albumin/Globulin Ratio (0.9-1.6) Lipase (73-393) U/L Urine Color YELLOW Urine Appearance CLEAR Urine pH 7.0 (5.0-8.0) Ur Specific [place] 1.015 (1.001-1.035) Urine Protein TRACE H (NEGATIVE) mg/dL Urine Glucose (UA) NEGATIVE (NEGATIVE) mg/dL Urine Ketones NEGATIVE (NEGATIVE) mg/dL Urine Occult Blood NEGATIVE (NEGATIVE) Urine Nitrite NEGATIVE (NEGATIVE) Urine Bilirubin NEGATIVE (NEGATIVE) Urine Urobilinogen 0.2 (<2.0) EU/dL Ur Leukocyte Esterase NEGATIVE (NEGATIVE) Urine RBC 0-2 (0-2/HPF) Urine WBC 0-2 (0-5/HPF) Ur Epithelial Cells FEW (NONE-FEW) Urine Bacteria FEW (NEGATIVE) SARS-CoV-2 RNA (DEISI) (NEGATIVE) Result Diagrams: 12/09/20 15:37 12/09/20 15:37 Sepsis Event Note - Evaluation Sepsis Screening Result: Possible Severe Sepsis Risk - Focused Exam Vital Signs: Vital Signs Temp Temp Pulse Resp BP Pulse Ox 12/09/20 19:47 37.0 C 96 19 122/54 L 98 12/09/20 15:55 38.8 C H 12/09/20 15:40 38.8 C H 119 H 20 105/39 L 98 - Problem List (1) SIRS (systemic inflammatory response syndrome) SNOMED Code(s): 465236723 ICD Code: R65.10 - SIRS OF NON-INFECTIOUS ORIGIN W/O ACUTE ORGAN DYSFUNCTION Status: Acute Current Visit: Yes (2) Hypoxia SNOMED Code(s): 134795542 ICD Code: R09.02 - HYPOXEMIA Status: Acute Current Visit: Yes (3) Lactic acidosis SNOMED Code(s): 83709870 ICD Code: E87.2 - ACIDOSIS Status: Acute Current Visit: Yes (4) Recurrent falls SNOMED Code(s): 279012484 ICD Code: R29.6 - REPEATED FALLS Status: Acute Current Visit: Yes (5) Right femoral vein DVT SNOMED Code(s): 116000595 ICD Code: I82.411 - ACUTE EMBOLISM AND THROMBOSIS OF RIGHT FEMORAL VEIN Status: Acute Priority: High Current Visit: No Qualifiers: Chronicity: acute Qualified Code(s): I82.411 - Acute embolism and thrombosis of right femoral vein (6) Weakness SNOMED Code(s): 20546601 ICD Code: R53.1 - WEAKNESS Status: Acute Current Visit: No (7) CHF (congestive heart failure) SNOMED Code(s): 41109104 ICD Code: I50.9 - HEART FAILURE, UNSPECIFIED Status: Chronic Priority: Medium Current Visit: No (8) HTN (hypertension) SNOMED Code(s): 50543876 ICD Code: I10 - ESSENTIAL (PRIMARY) HYPERTENSION Status: Chronic Priority: Medium Current Visit: No Qualifiers: Hypertension type: essential hypertension Qualified Code(s): I10 - Essential (primary) hypertension Problem List Initiated/Reviewed/Updated: Yes Orders Last 24hrs: Active Orders 24 hr Category Date Time Status Patient Status [ADT] Routine ADT 12/09/20 18:31 Active Ambulate [RC] ASDIRECTED Care 12/09/20 18:45 Active Antiembolic Devices [RC] PER UNIT ROUTINE Care 12/09/20 18:50 Active Cardiac Monitoring [RC] . DIRECTED Care 12/09/20 15:40 Active EKG Documentation Completion [RC] STAT Care 12/09/20 15:39 Active Insert Andrea Catheter [Insert Urinary Catheter] [OM.PC] Care 12/09/20 16:00 Ordered Q24H Oxygen Therapy [RC] PRN Care 12/09/20 18:46 Active Pulse Oximetry [RC] ASDIRECTED Care 12/09/20 15:40 Active RT Aerosol Therapy [RC] ASDIRECTED Care 12/09/20 18:51 Active Telemetry Monitoring [Cardiac Monitoring] [RC] . Care 12/09/20 19:00 Active DIRECTED Urinary Catheter Assessment [RC] ASDIRECTED Care 12/09/20 15:49 Active VTE/DVT Education [RC] PER UNIT ROUTINE Care 12/09/20 18:46 Active Vital Signs [RC] Q4H Care 12/09/20 18:46 Active CTA Abd Pelv w Cont [CT] Stat Exams 12/09/20 18:17 Taken BMP [BASIC METABOLIC PANEL,BMP] [CHEM] AM Lab 12/10/20 05:11 Ordered CBC WITH AUTO DIFF [HEME] AM Lab 12/10/20 05:11 Ordered CULTURE BLOOD [BC] Stat Lab 12/09/20 15:37 Received CULTURE BLOOD [BC] Stat Lab 12/09/20 16:13 Received INR,PT,PROTHROMBIN TIME [COAG] AM Lab 12/10/20 05:11 Ordered INR,PT,PROTHROMBIN TIME [COAG] AM Lab 12/11/20 05:11 Ordered INR,PT,PROTHROMBIN TIME [COAG] AM Lab 12/12/20 05:11 Ordered INR,PT,PROTHROMBIN TIME [COAG] AM Lab 12/13/20 05:11 Ordered MAGNESIUM [CHEM] AM Lab 12/10/20 05:11 Ordered PHOSPHORUS [CHEM] AM Lab 12/10/20 05:11 Ordered REFLEX LACTIC ACID YES OR NO [CHEM] Routine Lab 12/09/20 16:37 Received VANCOMYCIN TROUGH [CHEM] Routine Lab 12/14/20 20:00 Ordered ALPRAZolam [Xanax XR] Med 12/09/20 18:57 Active 1 mg PO DAILY PRN Acetaminophen [TylenoL] Med 12/09/20 18:45 Active 650 mg PO Q4H PRN Albuterol/Ipratropium [DuoNeb 3.0-0.5 MG/3 ML] Med 12/09/20 18:45 Active 3 ml NEB Q4HRRT PRN Calcium Carbonate [Calcium] Med 12/09/20 21:00 Active 600 mg PO BID Cholecalciferol (Vitamin D3) Med 12/10/20 09:00 Active 1,000 unit PO DAILY Gabapentin [Neurontin] Med 12/09/20 21:00 Active 300 mg PO BID Lactated Ringers [Ringers, Lactated] 1,000 ml Med 12/09/20 18:45 Active IV ASDIRECTED Levothyroxine [Synthroid] Med 12/10/20 09:00 Active 100 mcg PO DAILY Ondansetron [Zofran] Med 12/09/20 18:45 Active 4 mg IVPUSH Q4H PRN Pantoprazole [ProTONIX IV] 40 mg Med 12/09/20 18:45 Active Sodium Chloride 0.9% [Normal Saline] 10 ml IV Q24H Pharmacy to Dose - Vancomycin Med 12/09/20 19:00 Pending 1 dose .XX ASDIRECTED Piperacillin/Tazobactam [Piperacil-Tazobact] 3.375 gm Med 12/10/20 01:00 Active Sodium Chloride 0.9% [Normal Saline] 50 ml IV Q8H Primidone [Mysoline] Med 12/09/20 21:00 Active 150 mg PO BEDTIME Rosuvastatin Calcium [Rosuvastatin Calcium] Med 12/09/20 21:00 Active 20 mg PO BEDTIME Sodium Chloride 0.9% [Saline Flush] Med 12/09/20 15:39 Active 10 ml FLUSH ASDIRECTED PRN Sodium Chloride 0.9% [Saline Flush] Med 12/09/20 15:39 Active 2.5 ml FLUSH ASDIRECTED PRN VANCOmycin 2 GM/400 ML 2 gm Med 12/09/20 18:16 Active Premix Bag 1 bag IV STAT Vancomycin 1.25 gm Med 12/10/20 21:00 Active Sodium Chloride 0.9% [Normal Saline (AdvBag)] 250 ml IV Q24H Warfarin Dosing [Coumadin Ask] Med 12/09/20 19:00 Active 1 each PO ASDIRECTED carvediloL [Coreg] Med 12/09/20 21:00 Active 3.125 mg PO BID rOPINIRole Med 12/09/20 21:00 Active 0.5 mg PO BEDTIME Blood Culture x2 Reflex Set [OM.PC] Stat Oth 12/09/20 15:41 Ordered Saline Lock Insert [OM.PC] Stat Oth 12/09/20 15:39 Ordered Sequential Compression Device [OM.PC] Per Unit Routine Oth 12/09/20 18:46 Ordered Medication Orders Acetaminophen (Acetaminophen 325 Mg Tab) 650 mg PO Q4H PRN PRN Reason: Pain (Mild 1-3)/fever Albuterol/Ipratropium (Albuterol/Ipratropium 3.0-0.5 Mg/3 Ml Neb Soln) 3 ml NEB Q4HRRT PRN PRN Reason: Shortness Of Breath/wheezing Carvedilol (Carvedilol 3.125 Mg Tab) 3.125 mg PO BID JAZMIN Gabapentin (Gabapentin 300 Mg Cap) 300 mg PO BID JAZMIN Vancomycin HCl 2 gm/ Premix 400 mls @ 200 mls/hr IV STAT ONE Stop: 12/09/20 20:15 Lactated Ringer's (Ringers, Lactated) 1,000 mls @ 125 mls/hr IV ASDIRECTED JAZMIN Pantoprazole Sodium 40 mg/ (Sodium Chloride) 10 mls @ 300 mls/hr IV Q24H JAZMIN Piperacillin Sod/Tazobactam (Sod 3.375 gm/ Sodium Chloride) 50 mls @ 100 mls/hr IV Q8H JAZMIN Vancomycin HCl 1.25 gm/ Sodium (Chloride) 250 mls @ 166.667 mls/hr IV Q24H JAZMIN Levothyroxine Sodium (Levothyroxine 100 Mcg Tab) 100 mcg PO DAILY JAZMIN Non-Formulary Medication (Alprazolam [Xanax Xr]) 1 mg PO DAILY PRN PRN Reason: Anxiety Non-Formulary Medication (Calcium Carbonate [Calcium]) 600 mg PO BID JAZMIN Non-Formulary Medication (Cholecalciferol (Vitamin D3)) 1,000 unit PO DAILY JAZMIN Non-Formulary Medication (Ropinirole) 0.5 mg PO BEDTIME JAZMIN Non-Formulary Medication (Rosuvastatin Calcium [Rosuvastatin Calcium]) 20 mg PO BEDTIME JAZMIN Ondansetron HCl (Ondansetron 4 Mg/2 Ml Sdv) 4 mg IVPUSH Q4H PRN PRN Reason: Nausea/Vomiting Primidone (Primidone 50 Mg Tab) 150 mg PO BEDTIME JAZMIN Sodium Chloride (Sodium Chloride 0.9% 10 Ml Syringe) 10 ml FLUSH ASDIRECTED PRN PRN Reason: Keep Vein Open Last Admin: 12/09/20 15:49 Dose: 10 ml Documented by: CARMEN Sodium Chloride (Sodium Chloride 0.9% 2.5 Ml Syringe) 2.5 ml FLUSH ASDIRECTED PRN PRN Reason: Keep Vein Open Last Admin: 12/09/20 15:49 Dose: 2.5 ml Documented by: CARMEN Vancomycin HCl (Pharmacy To Dose - Vancomycin) 1 dose .XX ASDIRECTED JAZMIN Warfarin Sodium (Warfarin Ask Dosing) 1 each PO ASDIRECTED JAZMIN Assessment/Plan Comment:: 80-year-old female admitted for SIRS, no leukocytosis patient did have fever and tachycardia which has resolved now CXR unremarkable , x-ray right shoulder shows bony spurs and some arthritis Preliminary report of CT angio of chest shows no PE, final report is still pending, CT abdomen report is still pending follow-up on the results No definite source for SIRS, Will obtain CT abdomen although patient has no abdominal pain Continue broad-spectrum antibiotics Follow-up on repeat lactate Follow-up on blood cultures DuoNebs as needed for shortness of breath Dose Coumadin per pharmacy recommendations Ambulate as tolerated Heart healthy diet Resume home meds as appropriate Family is interested in placement at [facility], will consult social work for placement
[2020-12-09] MEDS: Lactated Ringers 1,000 ML IV SCH (20:44)
[2020-12-09] MEDS: Pantoprazole 40 MG in Sodium Chloride 0.9% 10 ML IV SCH (20:44)
[2020-12-09] MEDS ORDERED: ROPINIROLE 0.25 MG PO SCH (21:00)
[2020-12-09] MEDS ORDERED: Non-Formulary Medication 1 Each (Calcium Carbonate [Calcium] 500 MG Tablet) PO SCH (21:00)
[2020-12-09] MEDS ORDERED: Non-Formulary Medication 1 Each (Rosuvastatin Calcium [Rosuvastatin Calcium] 20 MG Tablet) PO SCH (21:00)
[2020-12-09] MEDS ORDERED: Lactated Ringers 500 ML IV ONE (21:45)
--- NOTE | 2020-12-09 21:49 | PCM.SN.2 ---
- Free Text/Narrative Note: Updated report of the CT chest and abdomen noted Subtle bilateral centrilobular ground glass nodules which may reflect an infectious or inflammatory process to include atypical infections, which could be the possible source of infection Thickening of the distal esophagus possibly secondary to esophagitis, mildly prominent lower paraesophageal lymph nodes noted as well which needs to be followed up on outpatient basis There is also some soft tissue thickening and inflammatory changes around the right medial gluteal fold, no abscess or collection was found Continue broad-spectrum antibiotics for now Patient has been assessed after initial fluid resuscitation and follow-up lactate is 2.6, Will administer another 500 cc of IV fluid bolus and continue to give maintenance fluids, follow-up on repeat lactate within 6 hours Patient's hemodynamics are otherwise stable we will continue to monitor closely
[2020-12-09] MEDS: Gabapentin 300 MG Cap PO SCH (21:52)
[2020-12-09] MEDS: Primidone 50 MG Tab PO SCH (21:52)
[2020-12-09] MEDS: Carvedilol 3.125 MG Tab PO SCH (21:54)
[2020-12-09] MEDS: Calcium Carbonate 500 MG Tab.Chew PO SCH (22:21)
[2020-12-09] MEDS: Rosuvastatin 10 MG Tab PO SCH (22:21)
[2020-12-09] MEDS: rOPINIRole 0.5 MG Tab PO SCH (22:22)
[2020-12-10] MEDS: Piperacillin/Tazobactam 3.375 GM in Sodium Chloride 0.9% 50 ML IV SCH ×3 (00:48→16:55)
[2020-12-10] MEDS: Lactated Ringers 1,000 ML IV SCH ×3 (03:47→22:35)
[2020-12-10] MEDS: Carvedilol 3.125 MG Tab PO SCH ×2 (08:23→21:24)
[2020-12-10] MEDS: Calcium Carbonate 500 MG Tab.Chew PO SCH ×2 (08:23→21:24)
[2020-12-10] MEDS: Levothyroxine 100 MCG Tab PO SCH (08:23)
[2020-12-10] MEDS: Cholecalciferol (Vitamin D3) 25 MCG Tab PO SCH ×2 (08:23→08:26)
[2020-12-10] MEDS: Gabapentin 300 MG Cap PO SCH ×2 (08:23→21:57)
[2020-12-10 08:40] LABS: CARBON DIOXIDE,CO2 21.3 mmol/L (21.0-32.0); POTASSIUM,K 3.4 mmol/L (3.5-5.1)
[2020-12-10] MEDS: Azithromycin 250 MG Tab PO SCH (10:52)
--- NOTE | 2020-12-10 14:58 | PCM.PN ---
- General Info Date of Service: 12/10/20 Admission Dx/Problem (Free Text): Admission Diagnosis/Problem Admission Diagnosis/Problem Sepsis Subjective Update: Admitted for shortness of breath, currently being treated for possible aspiration pneumonia. Patient had spiked a fever overnight which is resolved this morning, patient appears to be stable and in no acute distress. Continues to complain of some neck pain, denies any associated headache, visual changes, difficulty moving chin to chest, denies any associated fever, chills. Appears to be tolerating appropriate diet, stooling and micturating appropriately. All questions and concerns were addressed at bedside. Functional Status: Reports: Pain Controlled, Tolerating Diet, Ambulating (With use of walker), Urinating - Review of Systems General: Reports: No Symptoms HEENT: Reports: Other (Neck pain). Denies: Dysphasia, Ear Pain, Eye Pain, Headaches, Sinus Congestion, Sore Throat Pulmonary: Reports: No Symptoms Cardiovascular: Reports: No Symptoms Gastrointestinal: Reports: No Symptoms Genitourinary: Reports: No Symptoms Musculoskeletal: Reports: No Symptoms Skin: Reports: Bruising (Associated previous falls and injury, currently has swelling that is going down) Neurological: Reports: No Symptoms Psychiatric: Reports: No Symptoms - Patient Data Vitals - Most Recent: Last Vital Signs Temp 98.4 F 12/10/20 12:00 Pulse 90 12/10/20 12:00 Resp 20 12/10/20 12:00 BP 110/53 L 12/10/20 12:00 Pulse Ox 95 12/10/20 12:00 Weight - Most Recent: 180 lb I&O - Last 24 Hours: Intake & Output 12/09/20 12/10/20 12/10/20 22:59 06:59 14:59 Intake Total 3051 Output Total 400 Balance @ 2651 Lab Results Last 24 Hours: Laboratory Results - last 24 hr 12/09/20 12/09/20 12/09/20 Range/Units 15:37 15:37 15:37 WBC 5.69 (4.0-11.0) K/uL RBC 3.55 L (4.30-5.90) M/uL Hgb 9.7 L (12.0-16.0) g/dL Hct 32.2 L (36.0-46.0) % MCV 90.7 (80.0-98.0) fL MCH 27.3 (27.0-32.0) pg MCHC 30.1 L (31.0-37.0) g/dL RDW Std Deviation 53.1 (28.0-62.0) fl RDW Coeff of Sebastien 16 H (11.0-15.0) % Plt Count 288 (150-400) K/uL MPV 9.70 (7.40-12.00) fL Neut % (Auto) 95.5 H (48.0-80.0) % Lymph % (Auto) 3.5 L (16.0-40.0) % [place] % (Auto) 0.5 (0.0-15.0) % Eos % (Auto) 0.5 (0.0-7.0) % Baso % (Auto) 0.0 (0.0-1.5) % Neut # (Auto) 5.4 (1.4-5.7) K/uL Lymph # (Auto) 0.2 L (0.6-2.4) K/uL [place] # (Auto) 0.0 (0.0-0.8) K/uL Eos # (Auto) 0.0 (0.0-0.7) K/uL Baso # (Auto) 0.0 (0.0-0.1) K/uL Nucleated RBC % 0.5 /100WBC Nucleated RBCs # 0 K/uL INR 1.17 APTT 25.8 (18.6-31.3) SEC Sodium (136-145) mmol/L Potassium (3.5-5.1) mmol/L Chloride (98-107) mmol/L Carbon Dioxide (21.0-32.0) mmol/L BUN (7.0-18.0) mg/dL Creatinine (0.6-1.0) mg/dL Est Cr Clr Drug Dosing mL/min Estimated GFR (MDRD) ml/min Glucose (74-106) mg/dL Lactic Acid 7.0 H* (0.4-2.0) mmol/L Calcium (8.5-10.1) mg/dL Phosphorus (2.6-4.7) mg/dL Magnesium (1.8-2.4) mg/dL Total Bilirubin (0.2-1.0) mg/dL AST (15-37) IU/L ALT (14-63) IU/L Alkaline Phosphatase (46-116) U/L Troponin I (0.000-0.056) ng/mL C-Reactive Protein (0.00-0.90) mg/dL B-Natriuretic Peptide (<100) PG/ML Total Protein (6.4-8.2) g/dL Albumin (3.4-5.0) g/dL Globulin (2.6-4.0) g/dL Albumin/Globulin Ratio (0.9-1.6) Lipase (73-393) U/L Urine Color Urine Appearance Urine pH (5.0-8.0) Ur Specific [place] (1.001-1.035) Urine Protein (NEGATIVE) mg/dL Urine Glucose (UA) (NEGATIVE) mg/dL Urine Ketones (NEGATIVE) mg/dL Urine Occult Blood (NEGATIVE) Urine Nitrite (NEGATIVE) Urine Bilirubin (NEGATIVE) Urine Urobilinogen (<2.0) EU/dL Ur Leukocyte Esterase (NEGATIVE) Urine RBC (0-2/HPF) Urine WBC (0-5/HPF) Ur Epithelial Cells (NONE-FEW) Urine Bacteria (NEGATIVE) SARS-CoV-2 RNA (DEISI) (NEGATIVE) 12/09/20 12/09/20 12/09/20 Range/Units 15:37 15:37 16:45 WBC (4.0-11.0) K/uL RBC (4.30-5.90) M/uL Hgb (12.0-16.0) g/dL Hct (36.0-46.0) % MCV (80.0-98.0) fL MCH (27.0-32.0) pg MCHC (31.0-37.0) g/dL RDW Std Deviation (28.0-62.0) fl RDW Coeff of Sebastien (11.0-15.0) % Plt Count (150-400) K/uL MPV (7.40-12.00) fL Neut % (Auto) (48.0-80.0) % Lymph % (Auto) (16.0-40.0) % [place] % (Auto) (0.0-15.0) % Eos % (Auto) (0.0-7.0) % Baso % (Auto) (0.0-1.5) % Neut # (Auto) (1.4-5.7) K/uL Lymph # (Auto) (0.6-2.4) K/uL [place] # (Auto) (0.0-0.8) K/uL Eos # (Auto) (0.0-0.7) K/uL Baso # (Auto) (0.0-0.1) K/uL Nucleated RBC % /100WBC Nucleated RBCs # K/uL INR APTT (18.6-31.3) SEC Sodium 142 (136-145) mmol/L Potassium 3.4 L (3.5-5.1) mmol/L Chloride 104 (98-107) mmol/L Carbon Dioxide 21.4 (21.0-32.0) mmol/L BUN 8 (7.0-18.0) mg/dL Creatinine 1.2 H (0.6-1.0) mg/dL Est Cr Clr Drug Dosing 35.15 mL/min Estimated GFR (MDRD) 43.0 ml/min Glucose 84 (74-106) mg/dL Lactic Acid (0.4-2.0) mmol/L Calcium 8.8 (8.5-10.1) mg/dL Phosphorus (2.6-4.7) mg/dL Magnesium 1.4 L (1.8-2.4) mg/dL Total Bilirubin 0.3 (0.2-1.0) mg/dL AST 40 H (15-37) IU/L ALT 29 (14-63) IU/L Alkaline Phosphatase 110 (46-116) U/L Troponin I < 0.050 (0.000-0.056) ng/mL C-Reactive Protein 9.00 H (0.00-0.90) mg/dL B-Natriuretic Peptide 239 H (<100) PG/ML Total Protein 6.5 (6.4-8.2) g/dL Albumin 2.6 L (3.4-5.0) g/dL Globulin 3.9 (2.6-4.0) g/dL Albumin/Globulin Ratio 0.7 L (0.9-1.6) Lipase 89 (73-393) U/L Urine Color Urine Appearance Urine pH (5.0-8.0) Ur Specific [place] (1.001-1.035) Urine Protein (NEGATIVE) mg/dL Urine Glucose (UA) (NEGATIVE) mg/dL Urine Ketones (NEGATIVE) mg/dL Urine Occult Blood (NEGATIVE) Urine Nitrite (NEGATIVE) Urine Bilirubin (NEGATIVE) Urine Urobilinogen (<2.0) EU/dL Ur Leukocyte Esterase (NEGATIVE) Urine RBC (0-2/HPF) Urine WBC (0-5/HPF) Ur Epithelial Cells (NONE-FEW) Urine Bacteria (NEGATIVE) SARS-CoV-2 RNA (DEISI) NEGATIVE (NEGATIVE) 12/09/20 12/09/20 12/10/20 Range/Units 16:45 21:00 01:05 WBC (4.0-11.0) K/uL RBC (4.30-5.90) M/uL Hgb (12.0-16.0) g/dL Hct (36.0-46.0) % MCV (80.0-98.0) fL MCH (27.0-32.0) pg MCHC (31.0-37.0) g/dL RDW Std Deviation (28.0-62.0) fl RDW Coeff of Sebastien (11.0-15.0) % Plt Count (150-400) K/uL MPV (7.40-12.00) fL Neut % (Auto) (48.0-80.0) % Lymph % (Auto) (16.0-40.0) % [place] % (Auto) (0.0-15.0) % Eos % (Auto) (0.0-7.0) % Baso % (Auto) (0.0-1.5) % Neut # (Auto) (1.4-5.7) K/uL Lymph # (Auto) (0.6-2.4) K/uL [place] # (Auto) (0.0-0.8) K/uL Eos # (Auto) (0.0-0.7) K/uL Baso # (Auto) (0.0-0.1) K/uL Nucleated RBC % /100WBC Nucleated RBCs # K/uL INR APTT (18.6-31.3) SEC Sodium (136-145) mmol/L Potassium (3.5-5.1) mmol/L Chloride (98-107) mmol/L Carbon Dioxide (21.0-32.0) mmol/L BUN (7.0-18.0) mg/dL Creatinine (0.6-1.0) mg/dL Est Cr Clr Drug Dosing mL/min Estimated GFR (MDRD) ml/min Glucose (74-106) mg/dL Lactic Acid 2.6 H* 2.5 H* (0.4-2.0) mmol/L Calcium (8.5-10.1) mg/dL Phosphorus (2.6-4.7) mg/dL Magnesium (1.8-2.4) mg/dL Total Bilirubin (0.2-1.0) mg/dL AST (15-37) IU/L ALT (14-63) IU/L Alkaline Phosphatase (46-116) U/L Troponin I (0.000-0.056) ng/mL C-Reactive Protein (0.00-0.90) mg/dL B-Natriuretic Peptide (<100) PG/ML Total Protein (6.4-8.2) g/dL Albumin (3.4-5.0) g/dL Globulin (2.6-4.0) g/dL Albumin/Globulin Ratio (0.9-1.6) Lipase (73-393) U/L Urine Color YELLOW Urine Appearance CLEAR Urine pH 7.0 (5.0-8.0) Ur Specific [place] 1.015 (1.001-1.035) Urine Protein TRACE H (NEGATIVE) mg/dL Urine Glucose (UA) NEGATIVE (NEGATIVE) mg/dL Urine Ketones NEGATIVE (NEGATIVE) mg/dL Urine Occult Blood NEGATIVE (NEGATIVE) Urine Nitrite NEGATIVE (NEGATIVE) Urine Bilirubin NEGATIVE (NEGATIVE) Urine Urobilinogen 0.2 (<2.0) EU/dL Ur Leukocyte Esterase NEGATIVE (NEGATIVE) Urine RBC 0-2 (0-2/HPF) Urine WBC 0-2 (0-5/HPF) Ur Epithelial Cells FEW (NONE-FEW) Urine Bacteria FEW (NEGATIVE) SARS-CoV-2 RNA (DEISI) (NEGATIVE) 12/10/20 12/10/20 12/10/20 Range/Units 06:55 07:50 07:50 WBC 17.19 H (4.0-11.0) K/uL RBC 3.37 L (4.30-5.90) M/uL Hgb 9.3 L (12.0-16.0) g/dL Hct 30.6 L (36.0-46.0) % MCV 90.8 (80.0-98.0) fL MCH 27.6 (27.0-32.0) pg MCHC 30.4 L (31.0-37.0) g/dL RDW Std Deviation 54.5 (28.0-62.0) fl RDW Coeff of Sebastien 16 H (11.0-15.0) % Plt Count 253 (150-400) K/uL MPV 9.60 (7.40-12.00) fL Neut % (Auto) 95.5 H (48.0-80.0) % Lymph % (Auto) 1.7 L (16.0-40.0) % [place] % (Auto) 2.5 (0.0-15.0) % Eos % (Auto) 0.2 (0.0-7.0) % Baso % (Auto) 0.1 (0.0-1.5) % Neut # (Auto) 16.4 H (1.4-5.7) K/uL Lymph # (Auto) 0.3 L (0.6-2.4) K/uL [place] # (Auto) 0.4 (0.0-0.8) K/uL Eos # (Auto) 0.0 (0.0-0.7) K/uL Baso # (Auto) 0.0 (0.0-0.1) K/uL Nucleated RBC % 0.0 /100WBC Nucleated RBCs # 0 K/uL INR 1.26 APTT (18.6-31.3) SEC Sodium (136-145) mmol/L Potassium (3.5-5.1) mmol/L Chloride (98-107) mmol/L Carbon Dioxide (21.0-32.0) mmol/L BUN (7.0-18.0) mg/dL Creatinine (0.6-1.0) mg/dL Est Cr Clr Drug Dosing mL/min Estimated GFR (MDRD) ml/min Glucose (74-106) mg/dL Lactic Acid 2.1 H* (0.4-2.0) mmol/L Calcium (8.5-10.1) mg/dL Phosphorus (2.6-4.7) mg/dL Magnesium (1.8-2.4) mg/dL Total Bilirubin (0.2-1.0) mg/dL AST (15-37) IU/L ALT (14-63) IU/L Alkaline Phosphatase (46-116) U/L Troponin I (0.000-0.056) ng/mL C-Reactive Protein (0.00-0.90) mg/dL B-Natriuretic Peptide (<100) PG/ML Total Protein (6.4-8.2) g/dL Albumin (3.4-5.0) g/dL Globulin (2.6-4.0) g/dL Albumin/Globulin Ratio (0.9-1.6) Lipase (73-393) U/L Urine Color Urine Appearance Urine pH (5.0-8.0) Ur Specific [place] (1.001-1.035) Urine Protein (NEGATIVE) mg/dL Urine Glucose (UA) (NEGATIVE) mg/dL Urine Ketones (NEGATIVE) mg/dL Urine Occult Blood (NEGATIVE) Urine Nitrite (NEGATIVE) Urine Bilirubin (NEGATIVE) Urine Urobilinogen (<2.0) EU/dL Ur Leukocyte Esterase (NEGATIVE) Urine RBC (0-2/HPF) Urine WBC (0-5/HPF) Ur Epithelial Cells (NONE-FEW) Urine Bacteria (NEGATIVE) SARS-CoV-2 RNA (DEISI) (NEGATIVE) 12/10/20 12/10/20 Range/Units 07:50 12:04 WBC (4.0-11.0) K/uL RBC (4.30-5.90) M/uL Hgb (12.0-16.0) g/dL Hct (36.0-46.0) % MCV (80.0-98.0) fL MCH (27.0-32.0) pg MCHC (31.0-37.0) g/dL RDW Std Deviation (28.0-62.0) fl RDW Coeff of Sebastien (11.0-15.0) % Plt Count (150-400) K/uL MPV (7.40-12.00) fL Neut % (Auto) (48.0-80.0) % Lymph % (Auto) (16.0-40.0) % [place] % (Auto) (0.0-15.0) % Eos % (Auto) (0.0-7.0) % Baso % (Auto) (0.0-1.5) % Neut # (Auto) (1.4-5.7) K/uL Lymph # (Auto) (0.6-2.4) K/uL [place] # (Auto) (0.0-0.8) K/uL Eos # (Auto) (0.0-0.7) K/uL Baso # (Auto) (0.0-0.1) K/uL Nucleated RBC % /100WBC Nucleated RBCs # K/uL INR APTT (18.6-31.3) SEC Sodium 137 (136-145) mmol/L Potassium 3.4 L (3.5-5.1) mmol/L Chloride 104 (98-107) mmol/L Carbon Dioxide 21.3 (21.0-32.0) mmol/L BUN 11 (7.0-18.0) mg/dL Creatinine 1.2 H (0.6-1.0) mg/dL Est Cr Clr Drug Dosing 35.15 mL/min Estimated GFR (MDRD) 43.0 ml/min Glucose 100 (74-106) mg/dL Lactic Acid 2.2 H* (0.4-2.0) mmol/L Calcium 8.3 L (8.5-10.1) mg/dL Phosphorus 3.8 (2.6-4.7) mg/dL Magnesium 1.4 L (1.8-2.4) mg/dL Total Bilirubin (0.2-1.0) mg/dL AST (15-37) IU/L ALT (14-63) IU/L Alkaline Phosphatase (46-116) U/L Troponin I (0.000-0.056) ng/mL C-Reactive Protein (0.00-0.90) mg/dL B-Natriuretic Peptide (<100) PG/ML Total Protein (6.4-8.2) g/dL Albumin (3.4-5.0) g/dL Globulin (2.6-4.0) g/dL Albumin/Globulin Ratio (0.9-1.6) Lipase (73-393) U/L Urine Color Urine Appearance Urine pH (5.0-8.0) Ur Specific [place] (1.001-1.035) Urine Protein (NEGATIVE) mg/dL Urine Glucose (UA) (NEGATIVE) mg/dL Urine Ketones (NEGATIVE) mg/dL Urine Occult Blood (NEGATIVE) Urine Nitrite (NEGATIVE) Urine Bilirubin (NEGATIVE) Urine Urobilinogen (<2.0) EU/dL Ur Leukocyte Esterase (NEGATIVE) Urine RBC (0-2/HPF) Urine WBC (0-5/HPF) Ur Epithelial Cells (NONE-FEW) Urine Bacteria (NEGATIVE) SARS-CoV-2 RNA (DEISI) (NEGATIVE) Med Orders - Current: Current Medications Acetaminophen (Acetaminophen 325 Mg Tab) 650 mg PO Q4H PRN PRN Reason: Pain (Mild 1-3)/fever Last Admin: 12/10/20 00:38 Dose: 650 mg Documented by: Acetaminophen (Acetaminophen 500 Mg Tab) 500 mg PO Q4H PRN PRN Reason: Fever Albuterol/Ipratropium (Albuterol/Ipratropium 3.0-0.5 Mg/3 Ml Neb Soln) 3 ml NEB Q4HRRT PRN PRN Reason: Shortness Of Breath/wheezing Azithromycin (Azithromycin 250 Mg Tab) 500 mg PO Q24H [facility] Last Admin: 12/10/20 10:52 Dose: 500 mg Documented by: Calcium Carbonate/Glycine (Calcium Carbonate 500 Mg Tab.Chew) 500 mg PO BID [facility] Last Admin: 12/10/20 08:23 Dose: 500 mg Documented by: Carvedilol (Carvedilol 3.125 Mg Tab) 3.125 mg PO BID [facility] Last Admin: 12/10/20 08:23 Dose: 3.125 mg Documented by: Cholecalciferol (Cholecalciferol (Vitamin D3) 25 Mcg Tab) 25 mcg PO DAILY [facility] Last Admin: 12/10/20 08:26 Dose: Not Given Documented by: Gabapentin (Gabapentin 300 Mg Cap) 300 mg PO BID [facility] Last Admin: 12/10/20 08:23 Dose: 300 mg Documented by: Lactated Ringer's (Ringers, Lactated) 1,000 mls @ 125 mls/hr IV ASDIRECTED [facility] Last Admin: 12/10/20 12:53 Dose: 125 mls/hr Documented by: Pantoprazole Sodium 40 mg/ (Sodium Chloride) 10 mls @ 300 mls/hr IV Q24H [facility] Last Admin: 12/09/20 20:44 Dose: 300 mls/hr Documented by: Piperacillin Sod/Tazobactam (Sod 3.375 gm/ Sodium Chloride) 50 mls @ 100 mls/hr IV Q8H [facility] Last Admin: 12/10/20 08:23 Dose: 100 mls/hr Documented by: Vancomycin HCl 1.25 gm/ Sodium (Chloride) 250 mls @ 166.667 mls/hr IV Q24H [facility] Levothyroxine Sodium (Levothyroxine 100 Mcg Tab) 100 mcg PO DAILY [facility] Last Admin: 12/10/20 08:23 Dose: 100 mcg Documented by: Non-Formulary Medication (Alprazolam [Xanax Xr]) 1 mg PO DAILY PRN PRN Reason: Anxiety Ondansetron HCl (Ondansetron 4 Mg/2 Ml Sdv) 4 mg IVPUSH Q4H PRN PRN Reason: Nausea/Vomiting Primidone (Primidone 50 Mg Tab) 150 mg PO BEDTIME [facility] Last Admin: 12/09/20 21:52 Dose: 150 mg Documented by: Ropinirole HCl (Ropinirole 0.5 Mg Tab) 0.5 mg PO BEDTIME [facility] Last Admin: 12/09/20 22:22 Dose: 0.5 mg Documented by: Rosuvastatin Calcium (Rosuvastatin 10 Mg Tab) 20 mg PO BEDTIME [facility] Last Admin: 12/09/20 22:21 Dose: 20 mg Documented by: Sodium Chloride (Sodium Chloride 0.9% 10 Ml Syringe) 10 ml FLUSH ASDIRECTED PRN PRN Reason: Keep Vein Open Last Admin: 12/09/20 15:49 Dose: 10 ml Documented by: Sodium Chloride (Sodium Chloride 0.9% 2.5 Ml Syringe) 2.5 ml FLUSH ASDIRECTED PRN PRN Reason: Keep Vein Open Last Admin: 12/09/20 15:49 Dose: 2.5 ml Documented by: Vancomycin HCl (Pharmacy To Dose - Vancomycin) 1 dose .XX ASDIRECTED [facility] Warfarin Sodium (Warfarin Ask Dosing) 1 each PO ASDIRECTED [facility] Discontinued Medications Acetaminophen (Acetaminophen 500 Mg Tab) 1,000 mg PO ONETIME ONE Stop: 12/09/20 15:50 Last Admin: 12/09/20 15:55 Dose: 1,000 mg Documented by: Sodium Chloride (Normal Saline) 1,000 mls @ 999 mls/hr IV .Bolus ONE Stop: 12/09/20 16:39 Last Admin: 12/09/20 15:49 Dose: 999 mls/hr Documented by: Sodium Chloride (Normal Saline) 1,000 mls @ 999 mls/hr IV .Bolus ONE Stop: 12/09/20 16:51 Last Admin: 12/09/20 16:43 Dose: 999 mls/hr Documented by: Piperacillin Sod/Tazobactam (Sod 4.5 gm/ Sodium Chloride) 100 mls @ 100 mls/hr IV ONETIME ONE Stop: 12/09/20 19:15 Last Admin: 12/09/20 19:16 Dose: 100 mls/hr Documented by: Vancomycin HCl 2 gm/ Premix 400 mls @ 200 mls/hr IV STAT ONE Stop: 12/09/20 20:15 Last Admin: 12/09/20 21:43 Dose: 200 mls/hr Documented by: Lactated Ringer's (Ringers, Lactated) 500 mls @ 999 mls/hr IV ONETIME ONE Stop: 12/09/20 22:15 Last Admin: 12/09/20 21:53 Dose: 999 mls/hr Documented by: Iopamidol (Iopamidol 755 Mg/Ml 500 Ml Multipack Bottle) 100 ml IVPUSH ONETIME ONE Stop: 12/09/20 18:51 Last Admin: 12/09/20 18:50 Dose: 100 ml Documented by: Non-Formulary Medication (Calcium Carbonate [Calcium]) 600 mg PO BID [facility] Last Admin: 12/09/20 22:35 Dose: Not Given Documented by: Non-Formulary Medication (Ropinirole) 0.5 mg PO BEDTIME [facility] Last Admin: 12/09/20 22:35 Dose: Not Given Documented by: Non-Formulary Medication (Rosuvastatin Calcium [Rosuvastatin Calcium]) 20 mg PO BEDTIME [facility] Last Admin: 12/09/20 22:35 Dose: Not Given Documented by: - Exam Urinary Catheter Total Time: 2 General: Alert, Oriented, Cooperative, No Acute Distress HEENT: Pupils Equal, Pupils Reactive, EOMI, Mucous Membr. Moist/[place] Neck: Supple, No JVD, Lymphadenopathy Lungs: Clear to Auscultation, Normal Respiratory Effort Cardiovascular: Regular Rate, Regular Rhythm GI/Abdominal Exam: Normal Bowel Sounds, Soft, Non-Tender, No Organomegaly Extremities: Normal Range of Motion, Normal Capillary Refill, Pedal Edema (1+). No: Joint Swelling, Van's Sign, Leg Pain Peripheral Pulses: 2+: Carotid (L), Carotid (R), Dorsalis Pedis (L), Dorsalis Pedis (R) Skin: Warm, Dry, Intact Wound/Incisions: Healing Well Neurological: No New Focal Deficit Psy/Mental Status: Alert, Normal Affect, Normal Mood - Patient Data Lab Results Last 24 hrs: Laboratory Results - last 24 hr 12/09/20 12/09/20 12/09/20 Range/Units 15:37 15:37 15:37 WBC 5.69 (4.0-11.0) K/uL RBC 3.55 L (4.30-5.90) M/uL Hgb 9.7 L (12.0-16.0) g/dL Hct 32.2 L (36.0-46.0) % MCV 90.7 (80.0-98.0) fL MCH 27.3 (27.0-32.0) pg MCHC 30.1 L (31.0-37.0) g/dL RDW Std Deviation 53.1 (28.0-62.0) fl RDW Coeff of Sebastien 16 H (11.0-15.0) % Plt Count 288 (150-400) K/uL MPV 9.70 (7.40-12.00) fL Neut % (Auto) 95.5 H (48.0-80.0) % Lymph % (Auto) 3.5 L (16.0-40.0) % [place] % (Auto) 0.5 (0.0-15.0) % Eos % (Auto) 0.5 (0.0-7.0) % Baso % (Auto) 0.0 (0.0-1.5) % Neut # (Auto) 5.4 (1.4-5.7) K/uL Lymph # (Auto) 0.2 L (0.6-2.4) K/uL [place] # (Auto) 0.0 (0.0-0.8) K/uL Eos # (Auto) 0.0 (0.0-0.7) K/uL Baso # (Auto) 0.0 (0.0-0.1) K/uL Nucleated RBC % 0.5 /100WBC Nucleated RBCs # 0 K/uL INR 1.17 APTT 25.8 (18.6-31.3) SEC Sodium (136-145) mmol/L Potassium (3.5-5.1) mmol/L Chloride (98-107) mmol/L Carbon Dioxide (21.0-32.0) mmol/L BUN (7.0-18.0) mg/dL Creatinine (0.6-1.0) mg/dL Est Cr Clr Drug Dosing mL/min Estimated GFR (MDRD) ml/min Glucose (74-106) mg/dL Lactic Acid 7.0 H* (0.4-2.0) mmol/L Calcium (8.5-10.1) mg/dL Phosphorus (2.6-4.7) mg/dL Magnesium (1.8-2.4) mg/dL Total Bilirubin (0.2-1.0) mg/dL AST (15-37) IU/L ALT (14-63) IU/L Alkaline Phosphatase (46-116) U/L Troponin I (0.000-0.056) ng/mL C-Reactive Protein (0.00-0.90) mg/dL B-Natriuretic Peptide (<100) PG/ML Total Protein (6.4-8.2) g/dL Albumin (3.4-5.0) g/dL Globulin (2.6-4.0) g/dL Albumin/Globulin Ratio (0.9-1.6) Lipase (73-393) U/L Urine Color Urine Appearance Urine pH (5.0-8.0) Ur Specific [place] (1.001-1.035) Urine Protein (NEGATIVE) mg/dL Urine Glucose (UA) (NEGATIVE) mg/dL Urine Ketones (NEGATIVE) mg/dL Urine Occult Blood (NEGATIVE) Urine Nitrite (NEGATIVE) Urine Bilirubin (NEGATIVE) Urine Urobilinogen (<2.0) EU/dL Ur Leukocyte Esterase (NEGATIVE) Urine RBC (0-2/HPF) Urine WBC (0-5/HPF) Ur Epithelial Cells (NONE-FEW) Urine Bacteria (NEGATIVE) SARS-CoV-2 RNA (DEISI) (NEGATIVE) 12/09/20 12/09/20 12/09/20 Range/Units 15:37 15:37 16:45 WBC (4.0-11.0) K/uL RBC (4.30-5.90) M/uL Hgb (12.0-16.0) g/dL Hct (36.0-46.0) % MCV (80.0-98.0) fL MCH (27.0-32.0) pg MCHC (31.0-37.0) g/dL RDW Std Deviation (28.0-62.0) fl RDW Coeff of Sebastien (11.0-15.0) % Plt Count (150-400) K/uL MPV (7.40-12.00) fL Neut % (Auto) (48.0-80.0) % Lymph % (Auto) (16.0-40.0) % [place] % (Auto) (0.0-15.0) % Eos % (Auto) (0.0-7.0) % Baso % (Auto) (0.0-1.5) % Neut # (Auto) (1.4-5.7) K/uL Lymph # (Auto) (0.6-2.4) K/uL [place] # (Auto) (0.0-0.8) K/uL Eos # (Auto) (0.0-0.7) K/uL Baso # (Auto) (0.0-0.1) K/uL Nucleated RBC % /100WBC Nucleated RBCs # K/uL INR APTT (18.6-31.3) SEC Sodium 142 (136-145) mmol/L Potassium 3.4 L (3.5-5.1) mmol/L Chloride 104 (98-107) mmol/L Carbon Dioxide 21.4 (21.0-32.0) mmol/L BUN 8 (7.0-18.0) mg/dL Creatinine 1.2 H (0.6-1.0) mg/dL Est Cr Clr Drug Dosing 35.15 mL/min Estimated GFR (MDRD) 43.0 ml/min Glucose 84 (74-106) mg/dL Lactic Acid (0.4-2.0) mmol/L Calcium 8.8 (8.5-10.1) mg/dL Phosphorus (2.6-4.7) mg/dL Magnesium 1.4 L (1.8-2.4) mg/dL Total Bilirubin 0.3 (0.2-1.0) mg/dL AST 40 H (15-37) IU/L ALT 29 (14-63) IU/L Alkaline Phosphatase 110 (46-116) U/L Troponin I < 0.050 (0.000-0.056) ng/mL C-Reactive Protein 9.00 H (0.00-0.90) mg/dL B-Natriuretic Peptide 239 H (<100) PG/ML Total Protein 6.5 (6.4-8.2) g/dL Albumin 2.6 L (3.4-5.0) g/dL Globulin 3.9 (2.6-4.0) g/dL Albumin/Globulin Ratio 0.7 L (0.9-1.6) Lipase 89 (73-393) U/L Urine Color Urine Appearance Urine pH (5.0-8.0) Ur Specific [place] (1.001-1.035) Urine Protein (NEGATIVE) mg/dL Urine Glucose (UA) (NEGATIVE) mg/dL Urine Ketones (NEGATIVE) mg/dL Urine Occult Blood (NEGATIVE) Urine Nitrite (NEGATIVE) Urine Bilirubin (NEGATIVE) Urine Urobilinogen (<2.0) EU/dL Ur Leukocyte Esterase (NEGATIVE) Urine RBC (0-2/HPF) Urine WBC (0-5/HPF) Ur Epithelial Cells (NONE-FEW) Urine Bacteria (NEGATIVE) SARS-CoV-2 RNA (DEISI) NEGATIVE (NEGATIVE) 12/09/20 12/09/20 12/10/20 Range/Units 16:45 21:00 01:05 WBC (4.0-11.0) K/uL RBC (4.30-5.90) M/uL Hgb (12.0-16.0) g/dL Hct (36.0-46.0) % MCV (80.0-98.0) fL MCH (27.0-32.0) pg MCHC (31.0-37.0) g/dL RDW Std Deviation (28.0-62.0) fl RDW Coeff of Sebastien (11.0-15.0) % Plt Count (150-400) K/uL MPV (7.40-12.00) fL Neut % (Auto) (48.0-80.0) % Lymph % (Auto) (16.0-40.0) % [place] % (Auto) (0.0-15.0) % Eos % (Auto) (0.0-7.0) % Baso % (Auto) (0.0-1.5) % Neut # (Auto) (1.4-5.7) K/uL Lymph # (Auto) (0.6-2.4) K/uL [place] # (Auto) (0.0-0.8) K/uL Eos # (Auto) (0.0-0.7) K/uL Baso # (Auto) (0.0-0.1) K/uL Nucleated RBC % /100WBC Nucleated RBCs # K/uL INR APTT (18.6-31.3) SEC Sodium (136-145) mmol/L Potassium (3.5-5.1) mmol/L Chloride (98-107) mmol/L Carbon Dioxide (21.0-32.0) mmol/L BUN (7.0-18.0) mg/dL Creatinine (0.6-1.0) mg/dL Est Cr Clr Drug Dosing mL/min Estimated GFR (MDRD) ml/min Glucose (74-106) mg/dL Lactic Acid 2.6 H* 2.5 H* (0.4-2.0) mmol/L Calcium (8.5-10.1) mg/dL Phosphorus (2.6-4.7) mg/dL Magnesium (1.8-2.4) mg/dL Total Bilirubin (0.2-1.0) mg/dL AST (15-37) IU/L ALT (14-63) IU/L Alkaline Phosphatase (46-116) U/L Troponin I (0.000-0.056) ng/mL C-Reactive Protein (0.00-0.90) mg/dL B-Natriuretic Peptide (<100) PG/ML Total Protein (6.4-8.2) g/dL Albumin (3.4-5.0) g/dL Globulin (2.6-4.0) g/dL Albumin/Globulin Ratio (0.9-1.6) Lipase (73-393) U/L Urine Color YELLOW Urine Appearance CLEAR Urine pH 7.0 (5.0-8.0) Ur Specific [place] 1.015 (1.001-1.035) Urine Protein TRACE H (NEGATIVE) mg/dL Urine Glucose (UA) NEGATIVE (NEGATIVE) mg/dL Urine Ketones NEGATIVE (NEGATIVE) mg/dL Urine Occult Blood NEGATIVE (NEGATIVE) Urine Nitrite NEGATIVE (NEGATIVE) Urine Bilirubin NEGATIVE (NEGATIVE) Urine Urobilinogen 0.2 (<2.0) EU/dL Ur Leukocyte Esterase NEGATIVE (NEGATIVE) Urine RBC 0-2 (0-2/HPF) Urine WBC 0-2 (0-5/HPF) Ur Epithelial Cells FEW (NONE-FEW) Urine Bacteria FEW (NEGATIVE) SARS-CoV-2 RNA (DIESI) (NEGATIVE) 12/10/20 12/10/20 12/10/20 Range/Units 06:55 07:50 07:50 WBC 17.19 H (4.0-11.0) K/uL RBC 3.37 L (4.30-5.90) M/uL Hgb 9.3 L (12.0-16.0) g/dL Hct 30.6 L (36.0-46.0) % MCV 90.8 (80.0-98.0) fL MCH 27.6 (27.0-32.0) pg MCHC 30.4 L (31.0-37.0) g/dL RDW Std Deviation 54.5 (28.0-62.0) fl RDW Coeff of Sebastien 16 H (11.0-15.0) % Plt Count 253 (150-400) K/uL MPV 9.60 (7.40-12.00) fL Neut % (Auto) 95.5 H (48.0-80.0) % Lymph % (Auto) 1.7 L (16.0-40.0) % [place] % (Auto) 2.5 (0.0-15.0) % Eos % (Auto) 0.2 (0.0-7.0) % Baso % (Auto) 0.1 (0.0-1.5) % Neut # (Auto) 16.4 H (1.4-5.7) K/uL Lymph # (Auto) 0.3 L (0.6-2.4) K/uL [place] # (Auto) 0.4 (0.0-0.8) K/uL Eos # (Auto) 0.0 (0.0-0.7) K/uL Baso # (Auto) 0.0 (0.0-0.1) K/uL Nucleated RBC % 0.0 /100WBC Nucleated RBCs # 0 K/uL INR 1.26 APTT (18.6-31.3) SEC Sodium (136-145) mmol/L Potassium (3.5-5.1) mmol/L Chloride (98-107) mmol/L Carbon Dioxide (21.0-32.0) mmol/L BUN (7.0-18.0) mg/dL Creatinine (0.6-1.0) mg/dL Est Cr Clr Drug Dosing mL/min Estimated GFR (MDRD) ml/min Glucose (74-106) mg/dL Lactic Acid 2.1 H* (0.4-2.0) mmol/L Calcium (8.5-10.1) mg/dL Phosphorus (2.6-4.7) mg/dL Magnesium (1.8-2.4) mg/dL Total Bilirubin (0.2-1.0) mg/dL AST (15-37) IU/L ALT (14-63) IU/L Alkaline Phosphatase (46-116) U/L Troponin I (0.000-0.056) ng/mL C-Reactive Protein (0.00-0.90) mg/dL B-Natriuretic Peptide (<100) PG/ML Total Protein (6.4-8.2) g/dL Albumin (3.4-5.0) g/dL Globulin (2.6-4.0) g/dL Albumin/Globulin Ratio (0.9-1.6) Lipase (73-393) U/L Urine Color Urine Appearance Urine pH (5.0-8.0) Ur Specific [place] (1.001-1.035) Urine Protein (NEGATIVE) mg/dL Urine Glucose (UA) (NEGATIVE) mg/dL Urine Ketones (NEGATIVE) mg/dL Urine Occult Blood (NEGATIVE) Urine Nitrite (NEGATIVE) Urine Bilirubin (NEGATIVE) Urine Urobilinogen (<2.0) EU/dL Ur Leukocyte Esterase (NEGATIVE) Urine RBC (0-2/HPF) Urine WBC (0-5/HPF) Ur Epithelial Cells (NONE-FEW) Urine Bacteria (NEGATIVE) SARS-CoV-2 RNA (DEISI) (NEGATIVE) 12/10/20 12/10/20 Range/Units 07:50 12:04 WBC (4.0-11.0) K/uL RBC (4.30-5.90) M/uL Hgb (12.0-16.0) g/dL Hct (36.0-46.0) % MCV (80.0-98.0) fL MCH (27.0-32.0) pg MCHC (31.0-37.0) g/dL RDW Std Deviation (28.0-62.0) fl RDW Coeff of Sebastien (11.0-15.0) % Plt Count (150-400) K/uL MPV (7.40-12.00) fL Neut % (Auto) (48.0-80.0) % Lymph % (Auto) (16.0-40.0) % [place] % (Auto) (0.0-15.0) % Eos % (Auto) (0.0-7.0) % Baso % (Auto) (0.0-1.5) % Neut # (Auto) (1.4-5.7) K/uL Lymph # (Auto) (0.6-2.4) K/uL [place] # (Auto) (0.0-0.8) K/uL Eos # (Auto) (0.0-0.7) K/uL Baso # (Auto) (0.0-0.1) K/uL Nucleated RBC % /100WBC Nucleated RBCs # K/uL INR APTT (18.6-31.3) SEC Sodium 137 (136-145) mmol/L Potassium 3.4 L (3.5-5.1) mmol/L Chloride 104 (98-107) mmol/L Carbon Dioxide 21.3 (21.0-32.0) mmol/L BUN 11 (7.0-18.0) mg/dL Creatinine 1.2 H (0.6-1.0) mg/dL Est Cr Clr Drug Dosing 35.15 mL/min Estimated GFR (MDRD) 43.0 ml/min Glucose 100 (74-106) mg/dL Lactic Acid 2.2 H* (0.4-2.0) mmol/L Calcium 8.3 L (8.5-10.1) mg/dL Phosphorus 3.8 (2.6-4.7) mg/dL Magnesium 1.4 L (1.8-2.4) mg/dL Total Bilirubin (0.2-1.0) mg/dL AST (15-37) IU/L ALT (14-63) IU/L Alkaline Phosphatase (46-116) U/L Troponin I (0.000-0.056) ng/mL C-Reactive Protein (0.00-0.90) mg/dL B-Natriuretic Peptide (<100) PG/ML Total Protein (6.4-8.2) g/dL Albumin (3.4-5.0) g/dL Globulin (2.6-4.0) g/dL Albumin/Globulin Ratio (0.9-1.6) Lipase (73-393) U/L Urine Color Urine Appearance Urine pH (5.0-8.0) Ur Specific [place] (1.001-1.035) Urine Protein (NEGATIVE) mg/dL Urine Glucose (UA) (NEGATIVE) mg/dL Urine Ketones (NEGATIVE) mg/dL Urine Occult Blood (NEGATIVE) Urine Nitrite (NEGATIVE) Urine Bilirubin (NEGATIVE) Urine Urobilinogen (<2.0) EU/dL Ur Leukocyte Esterase (NEGATIVE) Urine RBC (0-2/HPF) Urine WBC (0-5/HPF) Ur Epithelial Cells (NONE-FEW) Urine Bacteria (NEGATIVE) SARS-CoV-2 RNA (DEISI) (NEGATIVE) Result Diagrams: 12/10/20 07:50 12/10/20 07:50 Sepsis Event Note - Evaluation Sepsis Screening Result: No Definite Risk - Focused Exam Vital Signs: Vital Signs Temp Temp Pulse Pulse Resp BP BP 12/10/20 12:00 98.4 F 90 20 110/53 L 12/10/20 08:23 92 128/69 12/10/20 08:00 96.5 F L 89 22 H 111/54 L 12/10/20 04:00 98.2 F 92 20 128/69 Pulse Ox 12/10/20 12:00 95 12/10/20 08:23 12/10/20 08:00 96 12/10/20 04:00 93 L - Problem List Review Problem List Initiated/Reviewed/Updated: Yes - My Orders Last 24 Hours: My Active Orders 12/10/20 14:42 LACTIC ACID [CHEM] Q6H 05/31/21 14:49 Acetaminophen [Tylenol Extra Strength] 500 mg PO Q4H PRN 12/10/20 18:00 LACTIC ACID [CHEM] Q6H 12/10/20 20:42 LACTIC ACID [CHEM] Q6H 12/11/20 00:00 LACTIC ACID [CHEM] Q6H - Plan Plan:: 80-year-old female was admitted for SIRS, with no leukocytosis on admission, however was febrile and tachycardiac overnight which has resolved now. 1. Possible aspiration pneumonia: Afebrile, physical examination was unremarkable except for noted neck pain however had negative Brudzinski and Kernig signs therefore unlikely meningitis. Leukocytosis 17.2 this morning Previous CXR was unremarkable CT angio of chest shows no PE, indicated subtle centrilobular nodular opacities which may reflect infectious or inflammatory process. Per CT findings will broaden antibiotics to cover community-acquired pneumonia/aspiration pneumonia by adding azithromycin. Concerns per CT findings for aspiration pneumonia, therefore will consult speech for speech and swallow study. No definite source for SIRS, continue to trend lactate levels, 2.1 this morning, recheck at noon. Blood cultures pending, will narrow antibiotics per culture. In the interim continue with DuoNebs as needed for shortness of breath 2. 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
[2020-12-10] MEDS: Pantoprazole 40 MG in Sodium Chloride 0.9% 10 ML IV SCH (18:31)
[2020-12-10] MEDS ORDERED: Potassium Chloride 10% 20 MEQ/15 ML Soln 15 ML UD Cup PO ONE (18:51)
[2020-12-10] MEDS ORDERED: Magnesium Sulfate/Water 2 GM in Premix Bag 1 BAG IV ONE (18:55)
[2020-12-10] MEDS ORDERED: Magnesium Sulfate/Water 2 GM in Premix Bag 1 BAG IV SCH (19:00)
[2020-12-10] MEDS: Rosuvastatin 10 MG Tab PO SCH (21:24)
[2020-12-10] MEDS: Primidone 50 MG Tab PO SCH (21:24)
[2020-12-10] MEDS: rOPINIRole 0.5 MG Tab PO SCH (21:25)
[2020-12-10] MEDS: Acetaminophen 500 MG Tab PO PRN (21:31)
[2020-12-11] MEDS ORDERED: Potassium Chloride 20 MEQ Tab.ER PO ONE (00:20)
[2020-12-11] MEDS: Piperacillin/Tazobactam 3.375 GM in Sodium Chloride 0.9% 50 ML IV SCH ×3 (01:11→18:13)
[2020-12-11 06:24] LABS: POTASSIUM,K 3.4 mmol/L (3.5-5.1)
[2020-12-11] MEDS: Lactated Ringers 1,000 ML IV SCH (07:09)
[2020-12-11] MEDS: Levothyroxine 100 MCG Tab PO SCH (08:44)
[2020-12-11] MEDS: Calcium Carbonate 500 MG Tab.Chew PO SCH ×2 (08:44→21:30)
[2020-12-11] MEDS: Cholecalciferol (Vitamin D3) 25 MCG Tab PO SCH (08:44)
[2020-12-11] MEDS: Gabapentin 300 MG Cap PO SCH ×2 (08:44→21:29)
[2020-12-11] MEDS: Carvedilol 3.125 MG Tab PO SCH ×2 (08:45→21:28)
[2020-12-11] MEDS: Azithromycin 250 MG Tab PO SCH (09:56)
[2020-12-11] MEDS ORDERED: ALPRAZolam 0.5 MG Tab PO PRN (10:15)
[2020-12-11] MEDS: Furosemide 40 MG Tab PO SCH ×2 (11:04→21:29)
--- NOTE | 2020-12-11 13:21 | CT ---
EXAM DATE: 12/09/20 PATIENT'S AGE: 80 Patient: TOÑA TOLEDO Facility: [facility] . Site : [id number] Study: CT-Chest Angio ANGIO CAP-12/09/2020 7:15:44 PM Ordering Physician: Vernon Gonzalez Final Report: Please disregard the previous report which is incorrect and incomplete. Indication: Sepsis Technique: Contrast enhanced CT chest abdomen and pelvis. 100 mL Isovue 370 Comparison: CT abdomen pelvis 12/05/2020 Findings: Normal caliber thoracic aorta Heart size is normal. No pulmonary emboli. No mediastinal or hilar adenopathy. No pericardial effusion. Subtle bilateral centrilobular ground-glass nodules lingular and basilar atelectasis right lower lobe bronchiectasis is no effusion. Spleen is unremarkable small hiatal hernia. Thickening of the distal esophagus lower paraesophageal prominent lymph nodes Unremarkable right adrenal gland. Thickening of the left adrenal gland without discrete nodule seen. Gastric bypass change. Cholecystectomy. Biliary dilatation. IVC filter. Pancreas appears unremarkable. Liver otherwise is unremarkable. Kidneys enhance symmetrically. No hydronephrosis right renal cyst. Normal caliber abdominal aorta. Large amount of stool in the rectum and colon. Appendix not clearly identified however no pericecal inflammatory change. No obstruction. Diverticulosis urinary bladder unremarkable. Hysterectomy. Hip arthroplasty on the left causes streak artifact. There is soft tissue stranding and thickening around the right medial gluteal fold without discrete abscess seen. No suspicious bony lesions. Impression: 1. No pulmonary emboli. 2. Subtle centrilobular nodular opacities may reflect an infectious or inflammatory process to include atypical infections. 3. No acute findings in the abdomen or pelvis. Large amount stool within the colon. 4. Thickening of the distal esophagus could be seen with esophagitis. Mildly prominent lower paraesophageal lymph nodes. Consider GI consultation. 4. Soft tissue thickening and inflammatory change around the right medial gluteal fold. No abscess. Please note that all CT scans at this facility use dose modulation, iterative reconstruction, and/or weight-based dosing when appropriate to reduce radiation dose to as low as reasonably achievable. Dictated by Christine Watson MD @ 12/09/2020 8:08:35 PM Signed by: Christine Watson MD @12/09/2020 8:08:35 PM (Electronic Signature) Report Signed by Proxy. KIM
[2020-12-11] MEDS ORDERED: Potassium Chloride 10 MEQ Tab.ER PO ONE (14:00)
[2020-12-11] MEDS ORDERED: Warfarin 5 MG Tab PO SCH (14:00)
[2020-12-11] MEDS ORDERED: Warfarin 5 MG Tab ONE (16:07)
[2020-12-11] MEDS ORDERED: Potassium Chloride 20 MEQ Tab.ER ONE (16:08)
[2020-12-11] MEDS ORDERED: Potassium Chloride 10 MEQ Tab.ER ONE (16:43)
--- NOTE | 2020-12-11 17:11 | PCM.PN ---
- General Info Date of Service: 12/11/20 Admission Dx/Problem (Free Text): Admission Diagnosis/Problem Admission Diagnosis/Problem Sepsis Subjective Update: Admitted for shortness of breath, currently being treated for possible aspiration pneumonia. Patient had spiked a fever overnight which is resolved this morning, patient appears to be stable and in no acute distress. Continues to complain of some neck pain, denies any associated headache, visual changes, difficulty moving chin to chest, denies any associated fever, chills. Appears to be tolerating appropriate diet, stooling and micturating appropriately. All questions and concerns were addressed at bedside. Functional Status: Reports: Pain Controlled - Review of Systems General: Reports: Weakness HEENT: Reports: No Symptoms Pulmonary: Reports: No Symptoms Cardiovascular: Reports: No Symptoms Gastrointestinal: Reports: No Symptoms. Denies: Abdominal Pain, Decreased Appetite, Hematochezia, Melena, Nausea, Vomiting Genitourinary: Reports: No Symptoms Musculoskeletal: Reports: Joint Swelling (Improved) Skin: Reports: No Symptoms Neurological: Reports: No Symptoms Psychiatric: Reports: No Symptoms - Patient Data Vitals - Most Recent: Last Vital Signs Temp 96.6 F L 12/11/20 16:00 Pulse 79 12/11/20 16:00 Resp 20 12/11/20 16:00 BP 124/61 12/11/20 16:00 Pulse Ox 96 12/11/20 16:00 Weight - Most Recent: 180 lb I&O - Last 24 Hours: Intake & Output 12/11/20 12/11/20 12/11/20 06:59 14:59 22:59 Intake Total 800 750 Output Total 650 700 Balance 150 50 Lab Results Last 24 Hours: Laboratory Results - last 24 hr 12/11/20 12/11/20 12/11/20 Range/Units 05:35 05:35 05:35 WBC 14.99 H (4.0-11.0) K/uL RBC 2.87 L (4.30-5.90) M/uL Hgb 7.9 L (12.0-16.0) g/dL Hct 25.4 L (36.0-46.0) % MCV 88.5 (80.0-98.0) fL MCH 27.5 (27.0-32.0) pg MCHC 31.1 (31.0-37.0) g/dL RDW Std Deviation 52.1 (28.0-62.0) fl RDW Coeff of Sebastien 16 H (11.0-15.0) % Plt Count 234 (150-400) K/uL MPV 9.60 (7.40-12.00) fL Neut % (Auto) 89.8 H (48.0-80.0) % Lymph % (Auto) 4.3 L (16.0-40.0) % [place] % (Auto) 4.6 (0.0-15.0) % Eos % (Auto) 1.1 (0.0-7.0) % Baso % (Auto) 0.2 (0.0-1.5) % Neut # (Auto) 13.5 H (1.4-5.7) K/uL Lymph # (Auto) 0.6 (0.6-2.4) K/uL [place] # (Auto) 0.7 (0.0-0.8) K/uL Eos # (Auto) 0.2 (0.0-0.7) K/uL Baso # (Auto) 0.0 (0.0-0.1) K/uL Nucleated RBC % 0.0 /100WBC Nucleated RBCs # 0 K/uL INR 1.18 Sodium 138 (136-145) mmol/L Potassium 3.4 L (3.5-5.1) mmol/L Chloride 104 (98-107) mmol/L Carbon Dioxide 24.0 (21.0-32.0) mmol/L BUN 13 (7.0-18.0) mg/dL Creatinine 0.9 (0.6-1.0) mg/dL Est Cr Clr Drug Dosing 46.86 mL/min Estimated GFR (MDRD) 59.9 ml/min Glucose 87 (74-106) mg/dL Lactic Acid (0.4-2.0) mmol/L Calcium 8.2 L (8.5-10.1) mg/dL Phosphorus 2.7 (2.6-4.7) mg/dL Magnesium 1.9 (1.8-2.4) mg/dL Total Bilirubin 0.3 (0.2-1.0) mg/dL AST 51 H (15-37) IU/L ALT 31 (14-63) IU/L Alkaline Phosphatase 87 (46-116) U/L Total Protein 5.3 L (6.4-8.2) g/dL Albumin 1.9 L (3.4-5.0) g/dL Globulin 3.4 (2.6-4.0) g/dL Albumin/Globulin Ratio 0.6 L (0.9-1.6) 12/11/20 Range/Units 05:35 WBC (4.0-11.0) K/uL RBC (4.30-5.90) M/uL Hgb (12.0-16.0) g/dL Hct (36.0-46.0) % MCV (80.0-98.0) fL MCH (27.0-32.0) pg MCHC (31.0-37.0) g/dL RDW Std Deviation (28.0-62.0) fl RDW Coeff of Sebastien (11.0-15.0) % Plt Count (150-400) K/uL MPV (7.40-12.00) fL Neut % (Auto) (48.0-80.0) % Lymph % (Auto) (16.0-40.0) % [place] % (Auto) (0.0-15.0) % Eos % (Auto) (0.0-7.0) % Baso % (Auto) (0.0-1.5) % Neut # (Auto) (1.4-5.7) K/uL Lymph # (Auto) (0.6-2.4) K/uL [place] # (Auto) (0.0-0.8) K/uL Eos # (Auto) (0.0-0.7) K/uL Baso # (Auto) (0.0-0.1) K/uL Nucleated RBC % /100WBC Nucleated RBCs # K/uL INR Sodium (136-145) mmol/L Potassium (3.5-5.1) mmol/L Chloride (98-107) mmol/L Carbon Dioxide (21.0-32.0) mmol/L BUN (7.0-18.0) mg/dL Creatinine (0.6-1.0) mg/dL Est Cr Clr Drug Dosing mL/min Estimated GFR (MDRD) ml/min Glucose (74-106) mg/dL Lactic Acid 1.2 (0.4-2.0) mmol/L Calcium (8.5-10.1) mg/dL Phosphorus (2.6-4.7) mg/dL Magnesium (1.8-2.4) mg/dL Total Bilirubin (0.2-1.0) mg/dL AST (15-37) IU/L ALT (14-63) IU/L Alkaline Phosphatase (46-116) U/L Total Protein (6.4-8.2) g/dL Albumin (3.4-5.0) g/dL Globulin (2.6-4.0) g/dL Albumin/Globulin Ratio (0.9-1.6) Brando Results Last 24 Hours: Microbiology 12/09/20 16:13 Aerobic Blood Culture - Preliminary Blood - Venous - Lab Draw NO GROWTH AFTER 2 DAYS Anaerobic Blood Culture - Preliminary NO GROWTH AFTER 2 DAYS 12/09/20 15:37 Aerobic Blood Culture - Preliminary Blood - Venous NO GROWTH AFTER 2 DAYS Anaerobic Blood Culture - Preliminary NO GROWTH AFTER 2 DAYS 12/11/20 11:59 Stool Occult Blood (BRANDO) - Final Stool / Feces Med Orders - Current: Current Medications Acetaminophen (Acetaminophen 325 Mg Tab) 650 mg PO Q4H PRN PRN Reason: Pain (Mild 1-3)/fever Last Admin: 12/10/20 00:38 Dose: 650 mg Documented by: Acetaminophen (Acetaminophen 500 Mg Tab) 500 mg PO Q4H PRN PRN Reason: Fever Last Admin: 12/10/20 21:31 Dose: 500 mg Documented by: Albuterol/Ipratropium (Albuterol/Ipratropium 3.0-0.5 Mg/3 Ml Neb Soln) 3 ml NEB Q4HRRT PRN PRN Reason: Shortness Of Breath/wheezing Alprazolam (Alprazolam 0.5 Mg Tab) 1 mg PO BEDTIME PRN PRN Reason: Anxiety Azithromycin (Azithromycin 250 Mg Tab) 500 mg PO Q24H [facility] Last Admin: 12/11/20 09:56 Dose: 500 mg Documented by: Calcium Carbonate/Glycine (Calcium Carbonate 500 Mg Tab.Chew) 500 mg PO BID [facility] Last Admin: 12/11/20 08:44 Dose: 500 mg Documented by: Carvedilol (Carvedilol 3.125 Mg Tab) 3.125 mg PO BID [facility] Last Admin: 12/11/20 08:45 Dose: 3.125 mg Documented by: Cholecalciferol (Cholecalciferol (Vitamin D3) 25 Mcg Tab) 25 mcg PO DAILY [facility] Last Admin: 12/11/20 08:44 Dose: Not Given Documented by: Ferrous Sulfate (Ferrous Sulfate 325 Mg Tab) 325 mg PO BIDMEALS [facility] Furosemide (Furosemide 40 Mg Tab) 40 mg PO BID [facility] Last Admin: 12/11/20 11:04 Dose: 40 mg Documented by: Gabapentin (Gabapentin 300 Mg Cap) 300 mg PO BID [facility] Last Admin: 12/11/20 08:44 Dose: 300 mg Documented by: Pantoprazole Sodium 40 mg/ (Sodium Chloride) 10 mls @ 300 mls/hr IV Q24H [facility] Last Admin: 12/10/20 18:31 Dose: 300 mls/hr Documented by: Piperacillin Sod/Tazobactam (Sod 3.375 gm/ Sodium Chloride) 50 mls @ 100 mls/hr IV Q8H [facility] Last Admin: 12/11/20 08:43 Dose: 100 mls/hr Documented by: Levothyroxine Sodium (Levothyroxine 100 Mcg Tab) 100 mcg PO DAILY [facility] Last Admin: 12/11/20 08:44 Dose: 100 mcg Documented by: Ondansetron HCl (Ondansetron 4 Mg/2 Ml Sdv) 4 mg IVPUSH Q4H PRN PRN Reason: Nausea/Vomiting Last Admin: 12/11/20 09:56 Dose: 4 mg Documented by: Primidone (Primidone 50 Mg Tab) 150 mg PO BEDTIME [facility] Last Admin: 12/10/20 21:24 Dose: 150 mg Documented by: Ropinirole HCl (Ropinirole 0.5 Mg Tab) 0.5 mg PO BEDTIME [facility] Last Admin: 12/10/20 21:25 Dose: 0.5 mg Documented by: Rosuvastatin Calcium (Rosuvastatin 10 Mg Tab) 20 mg PO BEDTIME [facility] Last Admin: 12/10/20 21:24 Dose: 20 mg Documented by: Sodium Chloride (Sodium Chloride 0.9% 10 Ml Syringe) 10 ml FLUSH ASDIRECTED PRN PRN Reason: Keep Vein Open Last Admin: 12/09/20 15:49 Dose: 10 ml Documented by: Sodium Chloride (Sodium Chloride 0.9% 2.5 Ml Syringe) 2.5 ml FLUSH ASDIRECTED PRN PRN Reason: Keep Vein Open Last Admin: 12/09/20 15:49 Dose: 2.5 ml Documented by: Warfarin Sodium (Warfarin Ask Dosing) 1 each PO DAILY@1400 JAZMIN Last Admin: 12/11/20 13:47 Dose: Not Given Documented by: Discontinued Medications Acetaminophen (Acetaminophen 500 Mg Tab) 1,000 mg PO ONETIME ONE Stop: 12/09/20 15:50 Last Admin: 12/09/20 15:55 Dose: 1,000 mg Documented by: Sodium Chloride (Normal Saline) 1,000 mls @ 999 mls/hr IV .Bolus ONE Stop: 12/09/20 16:39 Last Admin: 12/09/20 15:49 Dose: 999 mls/hr Documented by: Sodium Chloride (Normal Saline) 1,000 mls @ 999 mls/hr IV .Bolus ONE Stop: 12/09/20 16:51 Last Admin: 12/09/20 16:43 Dose: 999 mls/hr Documented by: Piperacillin Sod/Tazobactam (Sod 4.5 gm/ Sodium Chloride) 100 mls @ 100 mls/hr IV ONETIME ONE Stop: 12/09/20 19:15 Last Admin: 12/09/20 19:16 Dose: 100 mls/hr Documented by: Vancomycin HCl 2 gm/ Premix 400 mls @ 200 mls/hr IV STAT ONE Stop: 12/09/20 20:15 Last Admin: 12/09/20 21:43 Dose: 200 mls/hr Documented by: Lactated Ringer's (Ringers, Lactated) 1,000 mls @ 125 mls/hr IV ASDIRECTED [facility] Last Admin: 12/11/20 07:09 Dose: 125 mls/hr Documented by: Vancomycin HCl 1.25 gm/ Sodium (Chloride) 250 mls @ 166.667 mls/hr IV Q24H [facility] Last Admin: 12/10/20 21:36 Dose: 166.667 mls/hr Documented by: Lactated Ringer's (Ringers, Lactated) 500 mls @ 999 mls/hr IV ONETIME ONE Stop: 12/09/20 22:15 Last Admin: 12/09/20 21:53 Dose: 999 mls/hr Documented by: Magnesium Sulfate 2 gm/ Premix 50 mls @ 25 mls/hr IV Q1H [facility] Magnesium Sulfate 2 gm/ Premix 50 mls @ 12.5 mls/hr IV ONETIME ONE Stop: 12/10/20 22:54 Last Admin: 12/10/20 19:45 Dose: 12.5 mls/hr Documented by: Iopamidol (Iopamidol 755 Mg/Ml 500 Ml Multipack Bottle) 100 ml IVPUSH ONETIME ONE Stop: 12/09/20 18:51 Last Admin: 12/09/20 18:50 Dose: 100 ml Documented by: Non-Formulary Medication (Alprazolam [Xanax Xr]) 1 mg PO DAILY PRN PRN Reason: Anxiety Non-Formulary Medication (Calcium Carbonate [Calcium]) 600 mg PO BID [facility] Last Admin: 12/09/20 22:35 Dose: Not Given Documented by: Non-Formulary Medication (Ropinirole) 0.5 mg PO BEDTIME [facility] Last Admin: 12/09/20 22:35 Dose: Not Given Documented by: Non-Formulary Medication (Rosuvastatin Calcium [Rosuvastatin Calcium]) 20 mg PO BEDTIME [facility] Last Admin: 12/09/20 22:35 Dose: Not Given Documented by: Potassium Chloride (Potassium Chloride 10% 20 Meq/15 Ml Soln 15 Ml Ud Cup) 20 meq PO ONETIME ONE Stop: 12/10/20 18:52 Last Admin: 12/11/20 02:11 Dose: Not Given Documented by: Potassium Chloride (Potassium Chloride 20 Meq Tab.Er) 20 meq PO ONETIME ONE Stop: 12/11/20 00:21 Last Admin: 12/11/20 01:10 Dose: 20 meq Documented by: Potassium Chloride (Potassium Chloride 10 Meq Tab.Er) 40 meq PO ONETIME ONE Stop: 12/11/20 14:01 Last Admin: 12/11/20 16:43 Dose: 40 meq Documented by: Potassium Chloride (Potassium Chloride 20 Meq Tab.Er) Confirm Administered Dose 40 meq .ROUTE .STK-MED ONE Stop: 12/11/20 16:09 Last Admin: 12/11/20 16:44 Dose: Not Given Documented by: Potassium Chloride (Potassium Chloride 10 Meq Tab.Er) Confirm Administered Dose 40 meq .ROUTE .STK-MED ONE Stop: 12/11/20 16:44 Vancomycin HCl (Pharmacy To Dose - Vancomycin) 1 dose .XX ASDIRECTED [facility] Warfarin Sodium (Warfarin Ask Dosing) 1 each PO ASDIRECTED [facility] Warfarin Sodium (Warfarin 5 Mg Tab) 5 mg PO 12/11/20@1400 [facility] Stop: 12/11/20 14:01 Last Admin: 12/11/20 16:35 Dose: 5 mg Documented by: Warfarin Sodium (Warfarin 5 Mg Tab) Confirm Administered Dose 5 mg .ROUTE .STK- MED ONE Stop: 12/11/20 16:08 Last Admin: 12/11/20 16:44 Dose: Not Given Documented by: - Exam Quality Assessment: DVT Prophylaxis (On warfarin) Urinary Catheter Total Time: 2 General: Alert, Oriented, Cooperative HEENT: Pupils Equal, Pupils Reactive, EOMI, Mucous Membr. Moist/[place] Neck: Supple Lungs: Clear to Auscultation, Normal Respiratory Effort Cardiovascular: Regular Rate, Regular Rhythm GI/Abdominal Exam: Normal Bowel Sounds, Soft, Non-Tender, No Organomegaly. No: Mass Extremities: Normal Range of Motion, Normal Capillary Refill, Pedal Edema, Other (Mild tremor due to underlying Parkinson's disease) Peripheral Pulses: 2+: Carotid (L), Carotid (R), Dorsalis Pedis (L), Dorsalis Pedis (R) Skin: Warm, Dry, Intact Neurological: No New Focal Deficit Psy/Mental Status: Alert, Normal Affect, Normal Mood - Patient Data Lab Results Last 24 hrs: Laboratory Results - last 24 hr 12/11/20 12/11/20 12/11/20 Range/Units 05:35 05:35 05:35 WBC 14.99 H (4.0-11.0) K/uL RBC 2.87 L (4.30-5.90) M/uL Hgb 7.9 L (12.0-16.0) g/dL Hct 25.4 L (36.0-46.0) % MCV 88.5 (80.0-98.0) fL MCH 27.5 (27.0-32.0) pg MCHC 31.1 (31.0-37.0) g/dL RDW Std Deviation 52.1 (28.0-62.0) fl RDW Coeff of Sebastien 16 H (11.0-15.0) % Plt Count 234 (150-400) K/uL MPV 9.60 (7.40-12.00) fL Neut % (Auto) 89.8 H (48.0-80.0) % Lymph % (Auto) 4.3 L (16.0-40.0) % [place] % (Auto) 4.6 (0.0-15.0) % Eos % (Auto) 1.1 (0.0-7.0) % Baso % (Auto) 0.2 (0.0-1.5) % Neut # (Auto) 13.5 H (1.4-5.7) K/uL Lymph # (Auto) 0.6 (0.6-2.4) K/uL [place] # (Auto) 0.7 (0.0-0.8) K/uL Eos # (Auto) 0.2 (0.0-0.7) K/uL Baso # (Auto) 0.0 (0.0-0.1) K/uL Nucleated RBC % 0.0 /100WBC Nucleated RBCs # 0 K/uL INR 1.18 Sodium 138 (136-145) mmol/L Potassium 3.4 L (3.5-5.1) mmol/L Chloride 104 (98-107) mmol/L Carbon Dioxide 24.0 (21.0-32.0) mmol/L BUN 13 (7.0-18.0) mg/dL Creatinine 0.9 (0.6-1.0) mg/dL Est Cr Clr Drug Dosing 46.86 mL/min Estimated GFR (MDRD) 59.9 ml/min Glucose 87 (74-106) mg/dL Lactic Acid (0.4-2.0) mmol/L Calcium 8.2 L (8.5-10.1) mg/dL Phosphorus 2.7 (2.6-4.7) mg/dL Magnesium 1.9 (1.8-2.4) mg/dL Total Bilirubin 0.3 (0.2-1.0) mg/dL AST 51 H (15-37) IU/L ALT 31 (14-63) IU/L Alkaline Phosphatase 87 (46-116) U/L Total Protein 5.3 L (6.4-8.2) g/dL Albumin 1.9 L (3.4-5.0) g/dL Globulin 3.4 (2.6-4.0) g/dL Albumin/Globulin Ratio 0.6 L (0.9-1.6) 12/11/20 Range/Units 05:35 WBC (4.0-11.0) K/uL RBC (4.30-5.90) M/uL Hgb (12.0-16.0) g/dL Hct (36.0-46.0) % MCV (80.0-98.0) fL MCH (27.0-32.0) pg MCHC (31.0-37.0) g/dL RDW Std Deviation (28.0-62.0) fl RDW Coeff of Sebastien (11.0-15.0) % Plt Count (150-400) K/uL MPV (7.40-12.00) fL Neut % (Auto) (48.0-80.0) % Lymph % (Auto) (16.0-40.0) % [place] % (Auto) (0.0-15.0) % Eos % (Auto) (0.0-7.0) % Baso % (Auto) (0.0-1.5) % Neut # (Auto) (1.4-5.7) K/uL Lymph # (Auto) (0.6-2.4) K/uL [place] # (Auto) (0.0-0.8) K/uL Eos # (Auto) (0.0-0.7) K/uL Baso # (Auto) (0.0-0.1) K/uL Nucleated RBC % /100WBC Nucleated RBCs # K/uL INR Sodium (136-145) mmol/L Potassium (3.5-5.1) mmol/L Chloride (98-107) mmol/L Carbon Dioxide (21.0-32.0) mmol/L BUN (7.0-18.0) mg/dL Creatinine (0.6-1.0) mg/dL Est Cr Clr Drug Dosing mL/min Estimated GFR (MDRD) ml/min Glucose (74-106) mg/dL Lactic Acid 1.2 (0.4-2.0) mmol/L Calcium (8.5-10.1) mg/dL Phosphorus (2.6-4.7) mg/dL Magnesium (1.8-2.4) mg/dL Total Bilirubin (0.2-1.0) mg/dL AST (15-37) IU/L ALT (14-63) IU/L Alkaline Phosphatase (46-116) U/L Total Protein (6.4-8.2) g/dL Albumin (3.4-5.0) g/dL Globulin (2.6-4.0) g/dL Albumin/Globulin Ratio (0.9-1.6) Result Diagrams: 12/11/20 05:35 12/11/20 05:35 Brando Results Last 24 hrs: Microbiology 12/09/20 16:13 Aerobic Blood Culture - Preliminary Blood - Venous - Lab Draw NO GROWTH AFTER 2 DAYS Anaerobic Blood Culture - Preliminary NO GROWTH AFTER 2 DAYS 12/09/20 15:37 Aerobic Blood Culture - Preliminary Blood - Venous NO GROWTH AFTER 2 DAYS Anaerobic Blood Culture - Preliminary NO GROWTH AFTER 2 DAYS 12/11/20 11:59 Stool Occult Blood (BRANDO) - Final Stool / Feces Sepsis Event Note - Evaluation Sepsis Screening Result: No Definite Risk - Focused Exam Vital Signs: Vital Signs Temp Pulse Pulse Resp BP BP Pulse Ox 12/11/20 16:00 96.6 F L 79 20 124/61 96 12/11/20 11:57 96.4 F L 72 20 109/59 L 96 12/11/20 11:50 96.4 F L 72 20 109/59 L 96 12/11/20 08:45 81 144/66 H 12/11/20 08:22 96.8 F L 81 20 144/66 H 95 - Problem List Review Problem List Initiated/Reviewed/Updated: Yes - My Orders Last 24 Hours: My Active Orders 12/11/20 17:00 Ferrous Sulfate 325 mg PO BIDMEALS 12/12/20 05:11 CBC WITH AUTO DIFF [HEME] AM COMPREHENSIVE METABOLIC PN,CMP [CHEM] AM MAGNESIUM [CHEM] AM PHOSPHORUS [CHEM] AM 12/12/20 12:30 Swallowing Function w Video [CR] Routine 12/13/20 05:11 CBC WITH AUTO DIFF [HEME] AM COMPREHENSIVE METABOLIC PN,CMP [CHEM] AM MAGNESIUM [CHEM] AM PHOSPHORUS [CHEM] AM - Plan Plan:: 80-year-old female was admitted for SIRS, with no leukocytosis on admission, however was febrile and tachycardiac overnight which has resolved now. 1. Aspiration pneumonia: Afebrile, leukocytosis has improved, 14.9 today, lactic acid normalized to 1.2. CT angio of chest indicated subtle centrilobular nodular opacities which may reflect infectious or inflammatory process. Per CT findings we had broaden antibiotics to cover community-acquired pneumonia/aspiration pneumonia by adding azithromycin. Per cultures we will cov er for aspiration pneumonia gram-negative bacteria. Therefore discontinue vancomycin continue with piperacillin tazobactam and azithromycin. Patient underwent bedside speech and swallow study with normal findings, however it is recommended patient undergo barium swallow study to further investigate possibility of aspiration due to underlying history of Parkinson's disease and recent symptoms. continue with DuoNebs as needed for shortness of breath 2. 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 However, patient is anemic therefore will perform occult studies to ensure no source of bleed prior to doing so. We will continue to dose Coumadin per pharmacy recommendations. 3. Anemia: Hemoglobin of 7.9, patient is asymptomatic, occult studies indicate positivity therefore will hold off on giving heparin. Will consider further studies with EGD and colonoscopy. If hemoglobin levels drop below 7 may consider providing packed red blood cells 2 units. Also started patient on ferrous sulfate 140 mg twice daily with meals. 4. History of CHF: Per physical examination lungs were clear to auscultation bilaterally without any crackles, no JVD, patient had been utilizing compression stockings which help prevent any significant pitting edema, therefore there was no signs of fluid overload. As per sepsis protocol patient had been receiving fluids, had held Lasix. Now the patient is appropriately hydrated and electrolytes have been supplemented will consider restarting Lasix home regimen 40 twice daily. 5. Hypomagnesemia: Resolved, continue to monitor daily Ambulate as tolerated Heart healthy diet Resume home meds as appropriate Family is interested in placement at [facility], will consult social work for placement
[2020-12-11] MEDS: Ferrous Sulfate 325 MG Tab PO SCH (18:13)
[2020-12-11] MEDS: Pantoprazole 40 MG in Sodium Chloride 0.9% 10 ML IV SCH (21:28)
[2020-12-11] MEDS: Primidone 50 MG Tab PO SCH (21:29)
[2020-12-11] MEDS: rOPINIRole 0.5 MG Tab PO SCH (21:29)
[2020-12-11] MEDS: Rosuvastatin 10 MG Tab PO SCH (21:30)
[2020-12-12] MEDS: Piperacillin/Tazobactam 3.375 GM in Sodium Chloride 0.9% 50 ML IV SCH ×3 (01:56→17:27)
[2020-12-12 06:15] LABS: CARBON DIOXIDE,CO2 27.3 mmol/L (21.0-32.0); POTASSIUM,K 2.8 mmol/L (3.5-5.1)
[2020-12-12] MEDS ORDERED: Potassium Chloride 20 MEQ Tab.ER PO ONE ×2 (07:49→12:00)
[2020-12-12] MEDS ORDERED: Magnesium Sulfate/Water 2 GM in Premix Bag 1 BAG IV ONE (07:49)
[2020-12-12] MEDS: Calcium Carbonate 500 MG Tab.Chew PO SCH ×2 (09:03→20:23)
[2020-12-12] MEDS: Levothyroxine 100 MCG Tab PO SCH (09:03)
[2020-12-12] MEDS: Gabapentin 300 MG Cap PO SCH ×2 (09:03→20:23)
[2020-12-12] MEDS: Cholecalciferol (Vitamin D3) 25 MCG Tab PO SCH (09:04)
[2020-12-12] MEDS: Ferrous Sulfate 325 MG Tab PO SCH ×2 (09:04→17:27)
[2020-12-12] MEDS: Furosemide 40 MG Tab PO SCH ×2 (09:04→20:23)
[2020-12-12] MEDS: Carvedilol 3.125 MG Tab PO SCH ×2 (09:04→20:23)
[2020-12-12] MEDS: Pantoprazole 40 MG in Sodium Chloride 0.9% 10 ML IV SCH ×2 (09:05→20:18)
[2020-12-12] MEDS: Azithromycin 250 MG Tab PO SCH (10:21)
--- NOTE | 2020-12-12 11:17 | PCM.PN ---
- General Info Date of Service: 12/12/20 Admission Dx/Problem (Free Text): Admission Diagnosis/Problem Admission Diagnosis/Problem Sepsis Subjective Update: Sitting up in chair eating breakfast this morning. Son at bedside. Denies any concerns but does have a rash noted to her back and anterior trunk. Patient denies itchiness. Son also points out redness to bilateral knees as well as shins. Patient denies any concerns currently. We did discuss hemoglobin has been labile. Patient having no acute bleeding. Rectal exam completed last evening by resident reported brown stool with no hemorrhoids and no overt bleeding. Patient has not had any overt bleeding per her reports or nursing reports. It would like to monitor hemoglobin today and consider possible outpatient evaluation for EGD colonoscopy. She reports her previous colonoscopy was many years ago. Functional Status: Reports: Pain Controlled, Tolerating Diet, Ambulating, Urinating - Review of Systems General: Reports: Weakness. Denies: Fatigue HEENT: Reports: No Symptoms. Denies: Headaches, Sore Throat, Visual Changes Pulmonary: Reports: No Symptoms. Denies: Shortness of Breath Cardiovascular: Reports: No Symptoms. Denies: Chest Pain Gastrointestinal: Denies: Abdominal Pain, Nausea, Vomiting Skin: Reports: Rash Neurological: Reports: No Symptoms Psychiatric: Reports: No Symptoms - Patient Data Vitals - Most Recent: Last Vital Signs Temp 98.3 F 12/12/20 07:36 Pulse 75 12/12/20 09:04 Resp 17 12/12/20 07:36 BP 124/46 L 12/12/20 09:04 Pulse Ox 95 12/12/20 07:36 Weight - Most Recent: 79.288 kg I&O - Last 24 Hours: Intake & Output 12/11/20 12/12/20 12/12/20 22:59 06:59 14:59 Intake Total 750 400 Output Total 700 650 Balance 50 -250 Lab Results Last 24 Hours: Laboratory Results - last 24 hr 12/11/20 12/12/20 12/12/20 Range/Units 18:35 05:15 05:15 WBC 15.84 H 9.59 (4.0-11.0) K/uL RBC 3.32 L 2.85 L (4.30-5.90) M/uL Hgb 9.2 L 7.7 L (12.0-16.0) g/dL Hct 29.6 L 25.4 L (36.0-46.0) % MCV 89.2 89.1 (80.0-98.0) fL MCH 27.7 27.0 (27.0-32.0) pg MCHC 31.1 30.3 L (31.0-37.0) g/dL RDW Std Deviation 52.3 52.4 (28.0-62.0) fl RDW Coeff of Sebastien 16 H 16 H (11.0-15.0) % Plt Count 285 285 (150-400) K/uL MPV 10.10 9.90 (7.40-12.00) fL Neut % (Auto) 86.9 H 84.2 H (48.0-80.0) % Lymph % (Auto) 7.1 L 7.6 L (16.0-40.0) % Gregory % (Auto) 4.7 6.4 (0.0-15.0) % Eos % (Auto) 1.1 1.6 (0.0-7.0) % Baso % (Auto) 0.2 0.2 (0.0-1.5) % Neut # (Auto) 13.8 H 8.1 H (1.4-5.7) K/uL Lymph # (Auto) 1.1 0.7 (0.6-2.4) K/uL Gregory # (Auto) 0.7 0.6 (0.0-0.8) K/uL Eos # (Auto) 0.2 0.2 (0.0-0.7) K/uL Baso # (Auto) 0.0 0.0 (0.0-0.1) K/uL Nucleated RBC % 0.0 0.0 /100WBC Nucleated RBCs # 0 0 K/uL INR 1.16 Sodium (136-145) mmol/L Potassium (3.5-5.1) mmol/L Chloride (98-107) mmol/L Carbon Dioxide (21.0-32.0) mmol/L BUN (7.0-18.0) mg/dL Creatinine (0.6-1.0) mg/dL Est Cr Clr Drug Dosing mL/min Estimated GFR (MDRD) ml/min Glucose (74-106) mg/dL Calcium (8.5-10.1) mg/dL Phosphorus (2.6-4.7) mg/dL Magnesium (1.8-2.4) mg/dL Total Bilirubin (0.2-1.0) mg/dL AST (15-37) IU/L ALT (14-63) IU/L Alkaline Phosphatase (46-116) U/L Total Protein (6.4-8.2) g/dL Albumin (3.4-5.0) g/dL Globulin (2.6-4.0) g/dL Albumin/Globulin Ratio (0.9-1.6) 12/12/20 Range/Units 05:15 WBC (4.0-11.0) K/uL RBC (4.30-5.90) M/uL Hgb (12.0-16.0) g/dL Hct (36.0-46.0) % MCV (80.0-98.0) fL MCH (27.0-32.0) pg MCHC (31.0-37.0) g/dL RDW Std Deviation (28.0-62.0) fl RDW Coeff of Sebastien (11.0-15.0) % Plt Count (150-400) K/uL MPV (7.40-12.00) fL Neut % (Auto) (48.0-80.0) % Lymph % (Auto) (16.0-40.0) % Gregory % (Auto) (0.0-15.0) % Eos % (Auto) (0.0-7.0) % Baso % (Auto) (0.0-1.5) % Neut # (Auto) (1.4-5.7) K/uL Lymph # (Auto) (0.6-2.4) K/uL Gregory # (Auto) (0.0-0.8) K/uL Eos # (Auto) (0.0-0.7) K/uL Baso # (Auto) (0.0-0.1) K/uL Nucleated RBC % /100WBC Nucleated RBCs # K/uL INR Sodium 143 (136-145) mmol/L Potassium 2.8 L (3.5-5.1) mmol/L Chloride 107 (98-107) mmol/L Carbon Dioxide 27.3 (21.0-32.0) mmol/L BUN 11 (7.0-18.0) mg/dL Creatinine 0.9 (0.6-1.0) mg/dL Est Cr Clr Drug Dosing 46.86 mL/min Estimated GFR (MDRD) 59.9 ml/min Glucose 91 (74-106) mg/dL Calcium 7.9 L (8.5-10.1) mg/dL Phosphorus 2.9 (2.6-4.7) mg/dL Magnesium 1.5 L (1.8-2.4) mg/dL Total Bilirubin 0.2 (0.2-1.0) mg/dL AST 34 (15-37) IU/L ALT 29 (14-63) IU/L Alkaline Phosphatase 78 (46-116) U/L Total Protein 5.3 L (6.4-8.2) g/dL Albumin 1.9 L (3.4-5.0) g/dL Globulin 3.4 (2.6-4.0) g/dL Albumin/Globulin Ratio 0.6 L (0.9-1.6) Brando Results Last 24 Hours: Microbiology 12/09/20 16:13 Aerobic Blood Culture - Preliminary Blood - Venous - Lab Draw NO GROWTH AFTER 2 DAYS Anaerobic Blood Culture - Preliminary NO GROWTH AFTER 2 DAYS 12/09/20 15:37 Aerobic Blood Culture - Preliminary Blood - Venous NO GROWTH AFTER 2 DAYS Anaerobic Blood Culture - Preliminary NO GROWTH AFTER 2 DAYS 12/11/20 11:59 Stool Occult Blood (BRANDO) - Final Stool / Feces Med Orders - Current: Current Medications Acetaminophen (Acetaminophen 325 Mg Tab) 650 mg PO Q4H PRN PRN Reason: Pain (Mild 1-3)/fever Last Admin: 12/10/20 00:38 Dose: 650 mg Documented by: Acetaminophen (Acetaminophen 500 Mg Tab) 500 mg PO Q4H PRN PRN Reason: Fever Last Admin: 12/10/20 21:31 Dose: 500 mg Documented by: Albuterol/Ipratropium (Albuterol/Ipratropium 3.0-0.5 Mg/3 Ml Neb Soln) 3 ml NEB Q4HRRT PRN PRN Reason: Shortness Of Breath/wheezing Alprazolam (Alprazolam 0.5 Mg Tab) 1 mg PO BEDTIME PRN PRN Reason: Anxiety Last Admin: 12/11/20 23:02 Dose: 1 mg Documented by: Azithromycin (Azithromycin 250 Mg Tab) 500 mg PO Q24H [facility] Last Admin: 12/12/20 10:21 Dose: 500 mg Documented by: Calcium Carbonate/Glycine (Calcium Carbonate 500 Mg Tab.Chew) 500 mg PO BID [facility] Last Admin: 12/12/20 09:03 Dose: 500 mg Documented by: Carvedilol (Carvedilol 3.125 Mg Tab) 3.125 mg PO BID [facility] Last Admin: 12/12/20 09:04 Dose: 3.125 mg Documented by: Cholecalciferol (Cholecalciferol (Vitamin D3) 25 Mcg Tab) 25 mcg PO DAILY [facility] Last Admin: 12/12/20 09:04 Dose: 25 mcg Documented by: Ferrous Sulfate (Ferrous Sulfate 325 Mg Tab) 325 mg PO BIDMEALS [facility] Last Admin: 12/12/20 09:04 Dose: 325 mg Documented by: Furosemide (Furosemide 40 Mg Tab) 40 mg PO BID [facility] Last Admin: 12/12/20 09:04 Dose: 40 mg Documented by: Gabapentin (Gabapentin 300 Mg Cap) 300 mg PO BID [facility] Last Admin: 12/12/20 09:03 Dose: 300 mg Documented by: Piperacillin Sod/Tazobactam (Sod 3.375 gm/ Sodium Chloride) 50 mls @ 100 mls/hr IV Q8H [facility] Last Admin: 12/12/20 09:04 Dose: 100 mls/hr Documented by: Pantoprazole Sodium 40 mg/ (Sodium Chloride) 10 mls @ 300 mls/hr IV BID [facility] Last Admin: 12/12/20 09:05 Dose: 300 mls/hr Documented by: Magnesium Sulfate 2 gm/ Premix 50 mls @ 12.5 mls/hr IV ONETIME ONE Stop: 12/12/20 11:48 Last Admin: 12/12/20 10:21 Dose: 12.5 mls/hr Documented by: Levothyroxine Sodium (Levothyroxine 100 Mcg Tab) 100 mcg PO DAILY [facility] Last Admin: 12/12/20 09:03 Dose: 100 mcg Documented by: Ondansetron HCl (Ondansetron 4 Mg/2 Ml Sdv) 4 mg IVPUSH Q4H PRN PRN Reason: Nausea/Vomiting Last Admin: 12/11/20 09:56 Dose: 4 mg Documented by: Potassium Chloride (Potassium Chloride 20 Meq Tab.Er) 40 meq PO ONETIME ONE Stop: 12/12/20 12:01 Primidone (Primidone 50 Mg Tab) 150 mg PO BEDTIME [facility] Last Admin: 12/11/20 21:29 Dose: 150 mg Documented by: Ropinirole HCl (Ropinirole 0.5 Mg Tab) 0.5 mg PO BEDTIME [facility] Last Admin: 12/11/20 21:29 Dose: 0.5 mg Documented by: Rosuvastatin Calcium (Rosuvastatin 10 Mg Tab) 20 mg PO BEDTIME [facility] Last Admin: 12/11/20 21:30 Dose: 20 mg Documented by: Sodium Chloride (Sodium Chloride 0.9% 10 Ml Syringe) 10 ml FLUSH ASDIRECTED PRN PRN Reason: Keep Vein Open Last Admin: 12/09/20 15:49 Dose: 10 ml Documented by: Sodium Chloride (Sodium Chloride 0.9% 2.5 Ml Syringe) 2.5 ml FLUSH ASDIRECTED PRN PRN Reason: Keep Vein Open Last Admin: 12/09/20 15:49 Dose: 2.5 ml Documented by: Warfarin Sodium (Warfarin Ask Dosing) 1 each PO DAILY@1400 [facility] Last Admin: 12/11/20 13:47 Dose: Not Given Documented by: Warfarin Sodium (Warfarin 5 Mg Tab) 5 mg PO 12/12/20@1400 [facility] Stop: 12/12/20 16:00 Discontinued Medications Acetaminophen (Acetaminophen 500 Mg Tab) 1,000 mg PO ONETIME ONE Stop: 12/09/20 15:50 Last Admin: 12/09/20 15:55 Dose: 1,000 mg Documented by: Sodium Chloride (Normal Saline) 1,000 mls @ 999 mls/hr IV .Bolus ONE Stop: 12/09/20 16:39 Last Admin: 12/09/20 15:49 Dose: 999 mls/hr Documented by: Sodium Chloride (Normal Saline) 1,000 mls @ 999 mls/hr IV .Bolus ONE Stop: 12/09/20 16:51 Last Admin: 12/09/20 16:43 Dose: 999 mls/hr Documented by: Piperacillin Sod/Tazobactam (Sod 4.5 gm/ Sodium Chloride) 100 mls @ 100 mls/hr IV ONETIME ONE Stop: 12/09/20 19:15 Last Admin: 12/09/20 19:16 Dose: 100 mls/hr Documented by: Vancomycin HCl 2 gm/ Premix 400 mls @ 200 mls/hr IV STAT ONE Stop: 12/09/20 20:15 Last Admin: 12/09/20 21:43 Dose: 200 mls/hr Documented by: Lactated Ringer's (Ringers, Lactated) 1,000 mls @ 125 mls/hr IV ASDIRECTED [facility] Last Admin: 12/11/20 07:09 Dose: 125 mls/hr Documented by: Pantoprazole Sodium 40 mg/ (Sodium Chloride) 10 mls @ 300 mls/hr IV Q24H [facility] Last Admin: 12/10/20 18:31 Dose: 300 mls/hr Documented by: Vancomycin HCl 1.25 gm/ Sodium (Chloride) 250 mls @ 166.667 mls/hr IV Q24H [facility] Last Admin: 12/10/20 21:36 Dose: 166.667 mls/hr Documented by: Lactated Ringer's (Ringers, Lactated) 500 mls @ 999 mls/hr IV ONETIME ONE Stop: 12/09/20 22:15 Last Admin: 12/09/20 21:53 Dose: 999 mls/hr Documented by: Magnesium Sulfate 2 gm/ Premix 50 mls @ 25 mls/hr IV Q1H [facility] Magnesium Sulfate 2 gm/ Premix 50 mls @ 12.5 mls/hr IV ONETIME ONE Stop: 12/10/20 22:54 Last Admin: 12/10/20 19:45 Dose: 12.5 mls/hr Documented by: Iopamidol (Iopamidol 755 Mg/Ml 500 Ml Multipack Bottle) 100 ml IVPUSH ONETIME ONE Stop: 12/09/20 18:51 Last Admin: 12/09/20 18:50 Dose: 100 ml Documented by: Non-Formulary Medication (Alprazolam [Xanax Xr]) 1 mg PO DAILY PRN PRN Reason: Anxiety Non-Formulary Medication (Calcium Carbonate [Calcium]) 600 mg PO BID [facility] Last Admin: 12/09/20 22:35 Dose: Not Given Documented by: Non-Formulary Medication (Ropinirole) 0.5 mg PO BEDTIME [facility] Last Admin: 12/09/20 22:35 Dose: Not Given Documented by: Non-Formulary Medication (Rosuvastatin Calcium [Rosuvastatin Calcium]) 20 mg PO BEDTIME JAZMIN Last Admin: 12/09/20 22:35 Dose: Not Given Documented by: Potassium Chloride (Potassium Chloride 10% 20 Meq/15 Ml Soln 15 Ml Ud Cup) 20 meq PO ONETIME ONE Stop: 12/10/20 18:52 Last Admin: 12/11/20 02:11 Dose: Not Given Documented by: Potassium Chloride (Potassium Chloride 20 Meq Tab.Er) 20 meq PO ONETIME ONE Stop: 12/11/20 00:21 Last Admin: 12/11/20 01:10 Dose: 20 meq Documented by: Potassium Chloride (Potassium Chloride 10 Meq Tab.Er) 40 meq PO ONETIME ONE Stop: 12/11/20 14:01 Last Admin: 12/11/20 16:43 Dose: 40 meq Documented by: Potassium Chloride (Potassium Chloride 20 Meq Tab.Er) Confirm Administered Dose 40 meq .ROUTE .STK-MED ONE Stop: 12/11/20 16:09 Last Admin: 12/11/20 16:44 Dose: Not Given Documented by: Potassium Chloride (Potassium Chloride 10 Meq Tab.Er) Confirm Administered Dose 40 meq .ROUTE .STK-MED ONE Stop: 12/11/20 16:44 Last Admin: 12/11/20 17:10 Dose: Not Given Documented by: Potassium Chloride (Potassium Chloride 20 Meq Tab.Er) 40 meq PO ONETIME ONE Stop: 12/12/20 07:50 Last Admin: 12/12/20 09:03 Dose: 40 meq Documented by: Vancomycin HCl (Pharmacy To Dose - Vancomycin) 1 dose .XX ASDIRECTED [facility] Warfarin Sodium (Warfarin Ask Dosing) 1 each PO ASDIRECTED [facility] Warfarin Sodium (Warfarin 5 Mg Tab) 5 mg PO 12/11/20@1400 [facility] Stop: 12/11/20 14:01 Last Admin: 12/11/20 16:35 Dose: 5 mg Documented by: Warfarin Sodium (Warfarin 5 Mg Tab) Confirm Administered Dose 5 mg .ROUTE .STK- MED ONE Stop: 12/11/20 16:08 Last Admin: 12/11/20 16:44 Dose: Not Given Documented by: - Exam Quality Assessment: DVT Prophylaxis Urinary Catheter Total Time: 2 General: Alert, Oriented, Cooperative Neck: Supple Lungs: Clear to Auscultation, Normal Respiratory Effort Cardiovascular: Regular Rate, Regular Rhythm GI/Abdominal Exam: Normal Bowel Sounds, Soft, Non-Tender Extremities: Normal Inspection, Normal Range of Motion, Non-Tender, Pedal Edema (+1 pitting edema to lower extremities) Wound/Incisions: Erythema (Erythematous spots which are warm to touch noted to bilateral knees, anterior as well as anterior shins and nearly identical spots. We will continue to monitor appear possible pressure or abrasions. Consider also viral rash.), Other (Macular rash that is blanchable noted to trunk posterior and anterior nonitching. We will continue to monitor.) Psy/Mental Status: Alert, Normal Affect, Normal Mood - Patient Data Lab Results Last 24 hrs: Laboratory Results - last 24 hr 12/11/20 12/12/20 12/12/20 Range/Units 18:35 05:15 05:15 WBC 15.84 H 9.59 (4.0-11.0) K/uL RBC 3.32 L 2.85 L (4.30-5.90) M/uL Hgb 9.2 L 7.7 L (12.0-16.0) g/dL Hct 29.6 L 25.4 L (36.0-46.0) % MCV 89.2 89.1 (80.0-98.0) fL MCH 27.7 27.0 (27.0-32.0) pg MCHC 31.1 30.3 L (31.0-37.0) g/dL RDW Std Deviation 52.3 52.4 (28.0-62.0) fl RDW Coeff of Sebastien 16 H 16 H (11.0-15.0) % Plt Count 285 285 (150-400) K/uL MPV 10.10 9.90 (7.40-12.00) fL Neut % (Auto) 86.9 H 84.2 H (48.0-80.0) % Lymph % (Auto) 7.1 L 7.6 L (16.0-40.0) % Gregory % (Auto) 4.7 6.4 (0.0-15.0) % Eos % (Auto) 1.1 1.6 (0.0-7.0) % Baso % (Auto) 0.2 0.2 (0.0-1.5) % Neut # (Auto) 13.8 H 8.1 H (1.4-5.7) K/uL Lymph # (Auto) 1.1 0.7 (0.6-2.4) K/uL Gregory # (Auto) 0.7 0.6 (0.0-0.8) K/uL Eos # (Auto) 0.2 0.2 (0.0-0.7) K/uL Baso # (Auto) 0.0 0.0 (0.0-0.1) K/uL Nucleated RBC % 0.0 0.0 /100WBC Nucleated RBCs # 0 0 K/uL INR 1.16 Sodium (136-145) mmol/L Potassium (3.5-5.1) mmol/L Chloride (98-107) mmol/L Carbon Dioxide (21.0-32.0) mmol/L BUN (7.0-18.0) mg/dL Creatinine (0.6-1.0) mg/dL Est Cr Clr Drug Dosing mL/min Estimated GFR (MDRD) ml/min Glucose (74-106) mg/dL Calcium (8.5-10.1) mg/dL Phosphorus (2.6-4.7) mg/dL Magnesium (1.8-2.4) mg/dL Total Bilirubin (0.2-1.0) mg/dL AST (15-37) IU/L ALT (14-63) IU/L Alkaline Phosphatase (46-116) U/L Total Protein (6.4-8.2) g/dL Albumin (3.4-5.0) g/dL Globulin (2.6-4.0) g/dL Albumin/Globulin Ratio (0.9-1.6) 12/12/20 Range/Units 05:15 WBC (4.0-11.0) K/uL RBC (4.30-5.90) M/uL Hgb (12.0-16.0) g/dL Hct (36.0-46.0) % MCV (80.0-98.0) fL MCH (27.0-32.0) pg MCHC (31.0-37.0) g/dL RDW Std Deviation (28.0-62.0) fl RDW Coeff of Sebastien (11.0-15.0) % Plt Count (150-400) K/uL MPV (7.40-12.00) fL Neut % (Auto) (48.0-80.0) % Lymph % (Auto) (16.0-40.0) % Gregory % (Auto) (0.0-15.0) % Eos % (Auto) (0.0-7.0) % Baso % (Auto) (0.0-1.5) % Neut # (Auto) (1.4-5.7) K/uL Lymph # (Auto) (0.6-2.4) K/uL Gregory # (Auto) (0.0-0.8) K/uL Eos # (Auto) (0.0-0.7) K/uL Baso # (Auto) (0.0-0.1) K/uL Nucleated RBC % /100WBC Nucleated RBCs # K/uL INR Sodium 143 (136-145) mmol/L Potassium 2.8 L (3.5-5.1) mmol/L Chloride 107 (98-107) mmol/L Carbon Dioxide 27.3 (21.0-32.0) mmol/L BUN 11 (7.0-18.0) mg/dL Creatinine 0.9 (0.6-1.0) mg/dL Est Cr Clr Drug Dosing 46.86 mL/min Estimated GFR (MDRD) 59.9 ml/min Glucose 91 (74-106) mg/dL Calcium 7.9 L (8.5-10.1) mg/dL Phosphorus 2.9 (2.6-4.7) mg/dL Magnesium 1.5 L (1.8-2.4) mg/dL Total Bilirubin 0.2 (0.2-1.0) mg/dL AST 34 (15-37) IU/L ALT 29 (14-63) IU/L Alkaline Phosphatase 78 (46-116) U/L Total Protein 5.3 L (6.4-8.2) g/dL Albumin 1.9 L (3.4-5.0) g/dL Globulin 3.4 (2.6-4.0) g/dL Albumin/Globulin Ratio 0.6 L (0.9-1.6) Result Diagrams: 12/12/20 12:10 12/12/20 05:15 Brando Results Last 24 hrs: Microbiology 12/09/20 16:13 Aerobic Blood Culture - Preliminary Blood - Venous - Lab Draw NO GROWTH AFTER 2 DAYS Anaerobic Blood Culture - Preliminary NO GROWTH AFTER 2 DAYS 12/09/20 15:37 Aerobic Blood Culture - Preliminary Blood - Venous NO GROWTH AFTER 2 DAYS Anaerobic Blood Culture - Preliminary NO GROWTH AFTER 2 DAYS 12/11/20 11:59 Stool Occult Blood (BRANDO) - Final Stool / Feces Sepsis Event Note - Evaluation Sepsis Screening Result: No Definite Risk - Focused Exam Vital Signs: Vital Signs Temp Pulse Pulse Resp BP BP Pulse Ox 12/12/20 09:04 75 124/46 L 12/12/20 07:36 98.3 F 75 17 124/46 L 95 12/12/20 03:00 98.3 F 85 16 102/54 L 93 L - Problem List & Annotations (1) Dysphagia SNOMED Code(s): 57493842, 176526007 Code(s): R13.10 - DYSPHAGIA, UNSPECIFIED Status: Acute Current Visit: Yes (2) Parkinsons SNOMED Code(s): 84972207 Code(s): G20 - PARKINSON'S DISEASE Status: Chronic Current Visit: Yes (3) Chronic anticoagulation SNOMED Code(s): 380919102 Code(s): Z79.01 - FLIGHT SURVEYOR (CURRENT) USE OF ANTICOAGULANTS Status: Chronic Current Visit: Yes (4) Anemia SNOMED Code(s): 974357248 Code(s): D64.9 - ANEMIA, UNSPECIFIED Status: Acute Current Visit: Yes (5) Hypoxia SNOMED Code(s): 279096460 Code(s): R09.02 - HYPOXEMIA Status: Acute Current Visit: Yes (6) Lactic acidosis SNOMED Code(s): 54387876 Code(s): E87.2 - ACIDOSIS Status: Acute Current Visit: Yes (7) Recurrent falls SNOMED Code(s): 641654928 Code(s): R29.6 - REPEATED FALLS Status: Acute Current Visit: Yes (8) SIRS (systemic inflammatory response syndrome) SNOMED Code(s): 363274485 Code(s): R65.10 - SIRS OF NON-INFECTIOUS ORIGIN W/O ACUTE ORGAN DYSFUNCTION Status: Acute Current Visit: Yes (9) Sepsis SNOMED Code(s): 42311442 Code(s): A41.9 - SEPSIS, UNSPECIFIED ORGANISM Status: Acute Current Visit: Yes Qualifiers: Sepsis type: sepsis due to unspecified organism Sepsis acute organ dysfunction status: unspecified Qualified Code(s): A41.9 - Sepsis, unspecified organism (10) Acute kidney injury SNOMED Code(s): 81895071, 45332311 Code(s): N17.9 - ACUTE KIDNEY FAILURE, UNSPECIFIED Status: Acute Current Visit: No (11) Degenerative disc disease SNOMED Code(s): 03606208 Code(s): JAL8591 - Status: Acute Current Visit: No Qualifiers: Spinal region: thoracic Qualified Code(s): M51.34 - Other intervertebral disc degeneration, thoracic region (12) Familial tremor SNOMED Code(s): 150258766 Code(s): G25.0 - ESSENTIAL TREMOR Status: Acute Current Visit: No (13) CHF (congestive heart failure) SNOMED Code(s): 78910357 Code(s): I50.9 - HEART FAILURE, UNSPECIFIED Status: Chronic Priority: Medium Current Visit: No (14) HTN (hypertension) SNOMED Code(s): 41910008 Code(s): I10 - ESSENTIAL (PRIMARY) HYPERTENSION Status: Chronic Priority: Medium Current Visit: No Qualifiers: Hypertension type: essential hypertension Qualified Code(s): I10 - Essential (primary) hypertension (15) Hypokalemia SNOMED Code(s): 36300981 Code(s): E87.6 - HYPOKALEMIA Status: Acute Current Visit: Yes (16) Hypomagnesemia SNOMED Code(s): 652674225 Code(s): E83.42 - HYPOMAGNESEMIA Status: Acute Current Visit: Yes - Problem List Review Problem List Initiated/Reviewed/Updated: Yes - My Orders Last 24 Hours: My Active Orders 12/12/20 07:49 Magnesium Sulfate/Water [Magnesium Sulfate in Water 2 GM/50 ML] 2 gm Premix Bag 1 bag IV ONETIME 12/12/20 12:00 Potassium Chloride [Klor-Con M20] 40 meq PO ONETIME ONE - Plan Plan:: 80-year-old female was admitted for SIRS, with no leukocytosis on admission, however was febrile and tachycardiac overnight which has resolved now. 1. Aspiration pneumonia: Afebrile, leukocytosis has resolved CT angio of chest indicated subtle centrilobular nodular opacities which may reflect infectious or inflammatory process. Continue Zosyn and azithromycin. Vancomycin discontinued yesterday Patient underwent bedside speech and swallow study with normal findings, however it is recommended patient undergo barium swallow study to further investigate possibility of aspiration due to underlying history of Parkinson's disease and recent symptoms. Possible modified barium swallow today with speech therapy and radiology 2. 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 -Hemoccult positive hemoglobin last evening 9.4 and again this morning 7.7 uncertain if these are correct values. We will recheck hemoglobin this afternoon. 3. Anemia: Hemoglobin of 7.7, patient is asymptomatic, Hemoccult positive will consider further studies with EGD and colonoscopy. - Repeat hgb stable at 9.0. Lab called, no error noted. Will monitor. If hemoglobin levels drop below 7 may consider providing packed red blood cells 2 units. Also started patient on ferrous sulfate 140 mg twice daily with meals. -Add iron studies to evaluate since last years 4. History of CHF: Appears euvolemic at this time Continue Lasix home regimen 40 twice daily. 5. Hypokalemia/ hypomagnesemia: Replete today and recheck tomorrow. VTE prophylaxis: Coumadin CODE STATUS: DNR/DNI Dispo: 1-2 days and pending placement when medically stable.
--- NOTE | 2020-12-12 12:59 | CR ---
For Patients: As a result of the 21st Century Cures Act, medical imaging exams and procedure reports are released immediately into your electronic medical record. You may view this report before your referring provider. If you have questions, please contact your health care provider. INDICATION: Parkinson`s, concern for aspiration TECHNIQUE: Modified video swallow performed in conjunction with speech pathology COMPARISON: None FINDINGS: This examination was performed in conjunction with speech pathology. Please see a copy of that report for complete details. The patient swallowed varying consistencies of barium contrast under fluoroscopic assessment. There is no laryngeal penetration or gross tracheal aspiration. Mild pooling of ingested material is noted within the vallecula and piriform sinuses. 77.3 seconds of fluoroscopy time was utilized for this examination and 3 fluoro spot sequences were obtained. IMPRESSION: No laryngeal penetration or gross tracheal aspiration. Dictated by Bebeto Alvarado MD @ 12/12/2020 12:58:[address] Bebeto Alvarado @ Dec 12 2020 12:58PM
[2020-12-12] MEDS ORDERED: Warfarin 5 MG Tab PO SCH (14:00)
[2020-12-12] MEDS ORDERED: diphenhydrAMINE/Zinc Acetate 1% Crm 28.3 GM Tube TOP PRN (14:08)
[2020-12-12] MEDS ORDERED: Iron Sucrose Complex 200 MG in Sodium Chloride 0.9% 100 ML IV ONE (14:43)
[2020-12-12] MEDS: Hydrocortisone 1% Crm 30 GM Tube TOP PRN ×2 (15:26→22:23)
[2020-12-12] MEDS ORDERED: Lidocaine 1% 20 ML MDV ONE (18:41)
[2020-12-12] MEDS: Primidone 50 MG Tab PO SCH (20:22)
[2020-12-12] MEDS: Rosuvastatin 10 MG Tab PO SCH (20:23)
[2020-12-12] MEDS: rOPINIRole 0.5 MG Tab PO SCH (20:23)
[2020-12-13] MEDS ORDERED: diphenhydrAMINE 25 MG Cap PO ONE (00:33)
[2020-12-13] MEDS: Piperacillin/Tazobactam 3.375 GM in Sodium Chloride 0.9% 50 ML IV SCH ×2 (00:59→08:23)
[2020-12-13] MEDS: Hydrocortisone 1% Crm 30 GM Tube TOP PRN ×2 (03:24→08:24)
[2020-12-13 06:29] LABS: BLOOD UREA NITROGEN,BUN 9 mg/dL (7.0-18.0); CARBON DIOXIDE,CO2 28.6 mmol/L (21.0-32.0); CHLORIDE,CL 105 mmol/L (98-107); GLUCOSE RANDOM 97 mg/dL (74-106); SODIUM,NA 139 mmol/L (136-145)
[2020-12-13] MEDS: Pantoprazole 40 MG in Sodium Chloride 0.9% 10 ML IV SCH ×2 (08:23→21:00)
[2020-12-13] MEDS: Ferrous Sulfate 325 MG Tab PO SCH ×2 (08:59→17:14)
[2020-12-13] MEDS: Furosemide 40 MG Tab PO SCH ×2 (09:00→21:00)
[2020-12-13] MEDS: Carvedilol 3.125 MG Tab PO SCH ×2 (09:00→21:00)
[2020-12-13] MEDS: Levothyroxine 100 MCG Tab PO SCH (09:00)
[2020-12-13] MEDS: Calcium Carbonate 500 MG Tab.Chew PO SCH ×2 (09:00→21:00)
[2020-12-13] MEDS: Gabapentin 300 MG Cap PO SCH ×2 (09:00→21:00)
[2020-12-13] MEDS: Cholecalciferol (Vitamin D3) 25 MCG Tab PO SCH (09:00)
[2020-12-13] MEDS: Azithromycin 250 MG Tab PO SCH (09:26)
[2020-12-13] MEDS ORDERED: Potassium Chloride 20 MEQ Tab.ER PO ONE (11:56)
[2020-12-13] MEDS ORDERED: Potassium Chloride Riders 40 MEQ in Premix Bag 1 BAG IV ONE ×2 (11:58→14:00)
[2020-12-13] MEDS ORDERED: Magnesium Sulfate/Water 2 GM in Premix Bag 1 BAG IV ONE ×2 (12:06→18:00)
[2020-12-13] MEDS: Levofloxacin/Dextrose 5%-Water 750 MG in Premix Bag 1 BAG IV SCH (12:53)
[2020-12-13] MEDS ORDERED: Warfarin 5 MG Tab PO SCH (14:00)
--- NOTE | 2020-12-13 16:22 | ECHO ---
EXAM DATE: 12/09/20 PATIENT'S AGE: 80 The ECHO report has been scanned into [employer] and can be seen in this patient's EMR (Electronic Medical Record) under the REPORTS section. The report has also been scanned into PACS. KIM
--- NOTE | 2020-12-13 16:49 | PCM.PN ---
- General Info Date of Service: 12/13/20 Admission Dx/Problem (Free Text): Admission Diagnosis/Problem Admission Diagnosis/Problem Sepsis Subjective Update: Patient is a geovany 80-year-old female admitted for aspiration pneumonia, has had labile hemoglobin and had rash noted on back yesterday, on knees, shins bilaterally. Had discontinued vancomycin. Yesterday her electrolytes were repleted, patient was started on iron supplementation warfarin was held due to occult blood. There is no overnight events. Patient appears to be stable in no acute distress this morning, denies any source of bleed or hemorrhoids. Patient is enjoying her breakfast comfortably with her son accompanying her in the room. All concerns were addressed at bedside. Functional Status: Reports: Tolerating Diet, Urinating - Review of Systems General: Reports: No Symptoms HEENT: Reports: No Symptoms Pulmonary: Reports: No Symptoms Cardiovascular: Reports: No Symptoms Gastrointestinal: Reports: No Symptoms Genitourinary: Reports: No Symptoms Musculoskeletal: Reports: No Symptoms Skin: Reports: Rash Neurological: Reports: No Symptoms Psychiatric: Reports: No Symptoms - Patient Data Vitals - Most Recent: Last Vital Signs Temp 99.3 F 12/13/20 15:08 Pulse 90 12/13/20 15:08 Resp 17 12/13/20 15:08 BP 108/52 L 12/13/20 15:08 Pulse Ox 97 12/13/20 15:08 Weight - Most Recent: 203 lb 7.787 oz I&O - Last 24 Hours: Intake & Output 12/13/20 12/13/20 12/13/20 06:59 14:59 22:59 Intake Total 610 320 Output Total 850 Balance -240 320 Lab Results Last 24 Hours: Laboratory Results - last 24 hr 12/13/20 12/13/20 12/13/20 Range/Units 05:35 05:35 05:35 WBC 11.09 H (4.0-11.0) K/uL RBC 3.18 L (4.30-5.90) M/uL Hgb 8.8 L (12.0-16.0) g/dL Hct 28.4 L (36.0-46.0) % MCV 89.3 (80.0-98.0) fL MCH 27.7 (27.0-32.0) pg MCHC 31.0 (31.0-37.0) g/dL RDW Std Deviation 52.0 (28.0-62.0) fl RDW Coeff of Sebastien 16 H (11.0-15.0) % Plt Count 329 (150-400) K/uL MPV 9.80 (7.40-12.00) fL Neut % (Auto) 84.7 H (48.0-80.0) % Lymph % (Auto) 6.9 L (16.0-40.0) % [place] % (Auto) 6.7 (0.0-15.0) % Eos % (Auto) 1.6 (0.0-7.0) % Baso % (Auto) 0.1 (0.0-1.5) % Neut # (Auto) 9.4 H (1.4-5.7) K/uL Lymph # (Auto) 0.8 (0.6-2.4) K/uL [place] # (Auto) 0.7 (0.0-0.8) K/uL Eos # (Auto) 0.2 (0.0-0.7) K/uL Baso # (Auto) 0.0 (0.0-0.1) K/uL Nucleated RBC % 0.2 /100WBC Nucleated RBCs # 0 K/uL INR 1.43 Sodium 139 (136-145) mmol/L Potassium 3.0 L (3.5-5.1) mmol/L Chloride 105 (98-107) mmol/L Carbon Dioxide 28.6 (21.0-32.0) mmol/L BUN 9 (7.0-18.0) mg/dL Creatinine 0.8 (0.6-1.0) mg/dL Est Cr Clr Drug Dosing 52.72 mL/min Estimated GFR (MDRD) > 60.0 ml/min Glucose 97 (74-106) mg/dL Calcium 7.8 L (8.5-10.1) mg/dL Phosphorus 2.5 L (2.6-4.7) mg/dL Magnesium 1.7 L (1.8-2.4) mg/dL Total Bilirubin 0.2 (0.2-1.0) mg/dL AST 27 (15-37) IU/L ALT 25 (14-63) IU/L Alkaline Phosphatase 85 (46-116) U/L Total Protein 5.8 L (6.4-8.2) g/dL Albumin 2.0 L (3.4-5.0) g/dL Globulin 3.8 (2.6-4.0) g/dL Albumin/Globulin Ratio 0.5 L (0.9-1.6) Brando Results Last 24 Hours: Microbiology 12/09/20 16:13 Aerobic Blood Culture - Preliminary Blood - Venous - Lab Draw NO GROWTH AFTER 4 DAYS Anaerobic Blood Culture - Preliminary NO GROWTH AFTER 4 DAYS 12/09/20 15:37 Aerobic Blood Culture - Preliminary Blood - Venous NO GROWTH AFTER 4 DAYS Anaerobic Blood Culture - Preliminary NO GROWTH AFTER 4 DAYS Med Orders - Current: Current Medications Acetaminophen (Acetaminophen 325 Mg Tab) 650 mg PO Q4H PRN PRN Reason: Pain (Mild 1-3)/fever Last Admin: 12/10/20 00:38 Dose: 650 mg Documented by: Acetaminophen (Acetaminophen 500 Mg Tab) 500 mg PO Q4H PRN PRN Reason: Fever Last Admin: 12/10/20 21:31 Dose: 500 mg Documented by: Albuterol/Ipratropium (Albuterol/Ipratropium 3.0-0.5 Mg/3 Ml Neb Soln) 3 ml NEB Q4HRRT PRN PRN Reason: Shortness Of Breath/wheezing Alprazolam (Alprazolam 0.5 Mg Tab) 1 mg PO BEDTIME PRN PRN Reason: Anxiety Last Admin: 12/11/20 23:02 Dose: 1 mg Documented by: Calcium Carbonate/Glycine (Calcium Carbonate 500 Mg Tab.Chew) 500 mg PO BID [facility] Last Admin: 12/13/20 09:00 Dose: 500 mg Documented by: Carvedilol (Carvedilol 3.125 Mg Tab) 3.125 mg PO BID [facility] Last Admin: 12/13/20 09:00 Dose: 3.125 mg Documented by: Cholecalciferol (Cholecalciferol (Vitamin D3) 25 Mcg Tab) 25 mcg PO DAILY [facility] Last Admin: 12/13/20 09:00 Dose: 25 mcg Documented by: Ferrous Sulfate (Ferrous Sulfate 325 Mg Tab) 325 mg PO BIDMEALS [facility] Last Admin: 12/13/20 08:59 Dose: 325 mg Documented by: Furosemide (Furosemide 40 Mg Tab) 40 mg PO BID [facility] Last Admin: 12/13/20 09:00 Dose: 40 mg Documented by: Gabapentin (Gabapentin 300 Mg Cap) 300 mg PO BID [facility] Last Admin: 12/13/20 09:00 Dose: 300 mg Documented by: Hydrocortisone (Hydrocortisone 1% Crm 30 Gm Tube) 0 gm TOP Q4H PRN PRN Reason: Itching Last Admin: 12/13/20 08:24 Dose: 1 applic Documented by: Pantoprazole Sodium 40 mg/ (Sodium Chloride) 10 mls @ 300 mls/hr IV BID [facility] Last Admin: 12/13/20 08:23 Dose: 300 mls/hr Documented by: Levofloxacin/Dextrose 750 mg/ (Premix) 150 mls @ 100 mls/hr IV Q24H JAZMIN Last Admin: 12/13/20 12:53 Dose: 100 mls/hr Documented by: Potassium Chloride 40 meq/ (Premix) 100 mls @ 25 mls/hr IV ONETIME ONE Stop: 12/13/20 17:59 Last Admin: 12/13/20 14:33 Dose: 25 mls/hr Documented by: Magnesium Sulfate 2 gm/ Premix 50 mls @ 12.5 mls/hr IV ONETIME ONE Stop: 12/13/20 21:59 Levothyroxine Sodium (Levothyroxine 100 Mcg Tab) 100 mcg PO DAILY [facility] Last Admin: 12/13/20 09:00 Dose: 100 mcg Documented by: Ondansetron HCl (Ondansetron 4 Mg/2 Ml Sdv) 4 mg IVPUSH Q4H PRN PRN Reason: Nausea/Vomiting Last Admin: 12/11/20 09:56 Dose: 4 mg Documented by: Primidone (Primidone 50 Mg Tab) 150 mg PO BEDTIME [facility] Last Admin: 12/12/20 20:22 Dose: 150 mg Documented by: Ropinirole HCl (Ropinirole 0.5 Mg Tab) 0.5 mg PO BEDTIME [facility] Last Admin: 12/12/20 20:23 Dose: 0.5 mg Documented by: Rosuvastatin Calcium (Rosuvastatin 10 Mg Tab) 20 mg PO BEDTIME [facility] Last Admin: 12/12/20 20:23 Dose: 20 mg Documented by: Sodium Chloride (Sodium Chloride 0.9% 10 Ml Syringe) 10 ml FLUSH ASDIRECTED PRN PRN Reason: Keep Vein Open Last Admin: 12/09/20 15:49 Dose: 10 ml Documented by: Sodium Chloride (Sodium Chloride 0.9% 2.5 Ml Syringe) 2.5 ml FLUSH ASDIRECTED PRN PRN Reason: Keep Vein Open Last Admin: 12/09/20 15:49 Dose: 2.5 ml Documented by: Warfarin Sodium (Warfarin Ask Dosing) 1 each PO DAILY@1400 JAZMIN Last Admin: 12/13/20 13:05 Dose: Not Given Documented by: Discontinued Medications Acetaminophen (Acetaminophen 500 Mg Tab) 1,000 mg PO ONETIME ONE Stop: 12/09/20 15:50 Last Admin: 12/09/20 15:55 Dose: 1,000 mg Documented by: Azithromycin (Azithromycin 250 Mg Tab) 500 mg PO Q24H [facility] Last Admin: 12/13/20 09:26 Dose: 500 mg Documented by: Diphenhydramine HCl (Diphenhydramine 25 Mg Cap) 25 mg PO ONETIME ONE Stop: 12/13/20 00:34 Last Admin: 12/13/20 00:59 Dose: 25 mg Documented by: Sodium Chloride (Normal Saline) 1,000 mls @ 999 mls/hr IV .Bolus ONE Stop: 12/09/20 16:39 Last Admin: 12/09/20 15:49 Dose: 999 mls/hr Documented by: Sodium Chloride (Normal Saline) 1,000 mls @ 999 mls/hr IV .Bolus ONE Stop: 12/09/20 16:51 Last Admin: 12/09/20 16:43 Dose: 999 mls/hr Documented by: Piperacillin Sod/Tazobactam (Sod 4.5 gm/ Sodium Chloride) 100 mls @ 100 mls/hr IV ONETIME ONE Stop: 12/09/20 19:15 Last Admin: 12/09/20 19:16 Dose: 100 mls/hr Documented by: Vancomycin HCl 2 gm/ Premix 400 mls @ 200 mls/hr IV STAT ONE Stop: 12/09/20 20:15 Last Admin: 12/09/20 21:43 Dose: 200 mls/hr Documented by: Lactated Ringer's (Ringers, Lactated) 1,000 mls @ 125 mls/hr IV ASDIRECTED [facility] Last Admin: 12/11/20 07:09 Dose: 125 mls/hr Documented by: Pantoprazole Sodium 40 mg/ (Sodium Chloride) 10 mls @ 300 mls/hr IV Q24H [facility] Last Admin: 12/10/20 18:31 Dose: 300 mls/hr Documented by: Piperacillin Sod/Tazobactam (Sod 3.375 gm/ Sodium Chloride) 50 mls @ 100 mls/hr IV Q8H [facility] Last Admin: 12/13/20 08:23 Dose: 100 mls/hr Documented by: Vancomycin HCl 1.25 gm/ Sodium (Chloride) 250 mls @ 166.667 mls/hr IV Q24H [facility] Last Admin: 12/10/20 21:36 Dose: 166.667 mls/hr Documented by: Lactated Ringer's (Ringers, Lactated) 500 mls @ 999 mls/hr IV ONETIME ONE Stop: 12/09/20 22:15 Last Admin: 12/09/20 21:53 Dose: 999 mls/hr Documented by: Magnesium Sulfate 2 gm/ Premix 50 mls @ 25 mls/hr IV Q1H [facility] Magnesium Sulfate 2 gm/ Premix 50 mls @ 12.5 mls/hr IV ONETIME ONE Stop: 12/10/20 22:54 Last Admin: 12/10/20 19:45 Dose: 12.5 mls/hr Documented by: Magnesium Sulfate 2 gm/ Premix 50 mls @ 12.5 mls/hr IV ONETIME ONE Stop: 12/12/20 11:48 Last Admin: 12/12/20 10:21 Dose: 12.5 mls/hr Documented by: Iron Sucrose 200 mg/ Sodium (Chloride) 110 mls @ 400 mls/hr IV ONETIME ONE Stop: 12/12/20 14:58 Last Admin: 12/12/20 15:29 Dose: 400 mls/hr Documented by: Potassium Chloride 40 meq/ (Premix) 100 mls @ 25 mls/hr IV ONETIME ONE Stop: 12/13/20 15:57 Last Admin: 12/13/20 14:10 Dose: Not Given Documented by: Magnesium Sulfate 2 gm/ Premix 50 mls @ 12.5 mls/hr IV ONETIME ONE Stop: 12/13/20 16:05 Last Admin: 12/13/20 14:11 Dose: Not Given Documented by: Iopamidol (Iopamidol 755 Mg/Ml 500 Ml Multipack Bottle) 100 ml IVPUSH ONETIME ONE Stop: 12/09/20 18:51 Last Admin: 12/09/20 18:50 Dose: 100 ml Documented by: Lidocaine HCl (Lidocaine 1% 20 Ml Mdv) Confirm Administered Dose 20 ml .ROUTE .STK-MED ONE Stop: 12/12/20 18:42 Last Admin: 12/12/20 20:04 Dose: Not Given Documented by: Non-Formulary Medication (Alprazolam [Xanax Xr]) 1 mg PO DAILY PRN PRN Reason: Anxiety Non-Formulary Medication (Calcium Carbonate [Calcium]) 600 mg PO BID [facility] Last Admin: 12/09/20 22:35 Dose: Not Given Documented by: Non-Formulary Medication (Ropinirole) 0.5 mg PO BEDTIME [facility] Last Admin: 12/09/20 22:35 Dose: Not Given Documented by: Non-Formulary Medication (Rosuvastatin Calcium [Rosuvastatin Calcium]) 20 mg PO BEDTIME [facility] Last Admin: 12/09/20 22:35 Dose: Not Given Documented by: Potassium Chloride (Potassium Chloride 10% 20 Meq/15 Ml Soln 15 Ml Ud Cup) 20 meq PO ONETIME ONE Stop: 12/10/20 18:52 Last Admin: 12/11/20 02:11 Dose: Not Given Documented by: Potassium Chloride (Potassium Chloride 20 Meq Tab.Er) 20 meq PO ONETIME ONE Stop: 12/11/20 00:21 Last Admin: 12/11/20 01:10 Dose: 20 meq Documented by: Potassium Chloride (Potassium Chloride 10 Meq Tab.Er) 40 meq PO ONETIME ONE Stop: 12/11/20 14:01 Last Admin: 12/11/20 16:43 Dose: 40 meq Documented by: Potassium Chloride (Potassium Chloride 20 Meq Tab.Er) Confirm Administered Dose 40 meq .ROUTE .STK-MED ONE Stop: 12/11/20 16:09 Last Admin: 12/11/20 16:44 Dose: Not Given Documented by: Potassium Chloride (Potassium Chloride 10 Meq Tab.Er) Confirm Administered Dose 40 meq .ROUTE .STK-MED ONE Stop: 12/11/20 16:44 Last Admin: 12/11/20 17:10 Dose: Not Given Documented by: Potassium Chloride (Potassium Chloride 20 Meq Tab.Er) 40 meq PO ONETIME ONE Stop: 12/12/20 07:50 Last Admin: 12/12/20 09:03 Dose: 40 meq Documented by: Potassium Chloride (Potassium Chloride 20 Meq Tab.Er) 40 meq PO ONETIME ONE Stop: 12/12/20 12:01 Last Admin: 12/12/20 12:57 Dose: 40 meq Documented by: Potassium Chloride (Potassium Chloride 20 Meq Tab.Er) 40 meq PO ONETIME ONE Stop: 12/13/20 11:57 Last Admin: 12/13/20 12:53 Dose: 40 meq Documented by: Vancomycin HCl (Pharmacy To Dose - Vancomycin) 1 dose .XX ASDIRECTED [facility] Warfarin Sodium (Warfarin Ask Dosing) 1 each PO ASDIRECTED [facility] Warfarin Sodium (Warfarin 5 Mg Tab) 5 mg PO 12/11/20@1400 [facility] Stop: 12/11/20 14:01 Last Admin: 12/11/20 16:35 Dose: 5 mg Documented by: Warfarin Sodium (Warfarin 5 Mg Tab) Confirm Administered Dose 5 mg .ROUTE .STK- MED ONE Stop: 12/11/20 16:08 Last Admin: 12/11/20 16:44 Dose: Not Given Documented by: Warfarin Sodium (Warfarin 5 Mg Tab) 5 mg PO 12/12/20@1400 [facility] Stop: 12/12/20 16:00 Last Admin: 12/12/20 13:57 Dose: 5 mg Documented by: Warfarin Sodium (Warfarin 5 Mg Tab) 5 mg PO 12/13/20@1400 [facility] Stop: 12/13/20 14:01 Last Admin: 12/13/20 13:05 Dose: 5 mg Documented by: Zinc Acetate/Diphenhydramine (Diphenhydramine/Zinc Acetate 1% Crm 28.3 Gm Tube) 0 gm TOP Q4H PRN PRN Reason: Itching - Exam Quality Assessment: DVT Prophylaxis (On Coumadin was held yesterday due to Hemoccult positive and labile hemoglobins) Urinary Catheter Total Time: 2 General: Alert, Oriented, Cooperative, No Acute Distress HEENT: Pupils Equal, Pupils Reactive, EOMI, Mucous Membr. Moist/[place]ck: Supple Lungs: Clear to Auscultation, Normal Respiratory Effort Cardiovascular: Regular Rate, Regular Rhythm GI/Abdominal Exam: Normal Bowel Sounds, Soft, Non-Tender, No Organomegaly, No Distention, No Abnormal Bruit, No Mass, Pelvis Stable (Female) Exam: Normal External Exam, Normal Speculum Exam Back Exam: Normal Inspection, Full Range of Motion Extremities: Normal Range of Motion, Normal Capillary Refill, Pedal Edema Peripheral Pulses: 2+: Carotid (L), Carotid (R), Dorsalis Pedis (L), Dorsalis Pedis (R) Skin: Warm, Dry, Intact, Rash Neurological: No New Focal Deficit Psy/Mental Status: Alert, Normal Affect, Normal Mood - Patient Data Lab Results Last 24 hrs: Laboratory Results - last 24 hr 12/13/20 12/13/20 12/13/20 Range/Units 05:35 05:35 05:35 WBC 11.09 H (4.0-11.0) K/uL RBC 3.18 L (4.30-5.90) M/uL Hgb 8.8 L (12.0-16.0) g/dL Hct 28.4 L (36.0-46.0) % MCV 89.3 (80.0-98.0) fL MCH 27.7 (27.0-32.0) pg MCHC 31.0 (31.0-37.0) g/dL RDW Std Deviation 52.0 (28.0-62.0) fl RDW Coeff of Sebastien 16 H (11.0-15.0) % Plt Count 329 (150-400) K/uL MPV 9.80 (7.40-12.00) fL Neut % (Auto) 84.7 H (48.0-80.0) % Lymph % (Auto) 6.9 L (16.0-40.0) % [place] % (Auto) 6.7 (0.0-15.0) % Eos % (Auto) 1.6 (0.0-7.0) % Baso % (Auto) 0.1 (0.0-1.5) % Neut # (Auto) 9.4 H (1.4-5.7) K/uL Lymph # (Auto) 0.8 (0.6-2.4) K/uL [place] # (Auto) 0.7 (0.0-0.8) K/uL Eos # (Auto) 0.2 (0.0-0.7) K/uL Baso # (Auto) 0.0 (0.0-0.1) K/uL Nucleated RBC % 0.2 /100WBC Nucleated RBCs # 0 K/uL INR 1.43 Sodium 139 (136-145) mmol/L Potassium 3.0 L (3.5-5.1) mmol/L Chloride 105 (98-107) mmol/L Carbon Dioxide 28.6 (21.0-32.0) mmol/L BUN 9 (7.0-18.0) mg/dL Creatinine 0.8 (0.6-1.0) mg/dL Est Cr Clr Drug Dosing 52.72 mL/min Estimated GFR (MDRD) > 60.0 ml/min Glucose 97 (74-106) mg/dL Calcium 7.8 L (8.5-10.1) mg/dL Phosphorus 2.5 L (2.6-4.7) mg/dL Magnesium 1.7 L (1.8-2.4) mg/dL Total Bilirubin 0.2 (0.2-1.0) mg/dL AST 27 (15-37) IU/L ALT 25 (14-63) IU/L Alkaline Phosphatase 85 (46-116) U/L Total Protein 5.8 L (6.4-8.2) g/dL Albumin 2.0 L (3.4-5.0) g/dL Globulin 3.8 (2.6-4.0) g/dL Albumin/Globulin Ratio 0.5 L (0.9-1.6) Result Diagrams: 12/13/20 05:35 12/13/20 16:21 Brando Results Last 24 hrs: Microbiology 12/09/20 16:13 Aerobic Blood Culture - Preliminary Blood - Venous - Lab Draw NO GROWTH AFTER 4 DAYS Anaerobic Blood Culture - Preliminary NO GROWTH AFTER 4 DAYS 12/09/20 15:37 Aerobic Blood Culture - Preliminary Blood - Venous NO GROWTH AFTER 4 DAYS Anaerobic Blood Culture - Preliminary NO GROWTH AFTER 4 DAYS Sepsis Event Note - Evaluation Sepsis Screening Result: No Definite Risk - Focused Exam Vital Signs: Vital Signs Temp Pulse Pulse Resp BP BP Pulse Ox 12/13/20 15:08 99.3 F 90 17 108/52 L 97 12/13/20 11:55 97.7 F 85 14 103/50 L 94 L 12/13/20 09:00 95 115/60 12/13/20 07:00 98.4 F 87 15 109/59 L 93 L - Problem List Review Problem List Initiated/Reviewed/Updated: Yes - My Orders Last 24 Hours: My Active Orders 12/13/20 12:00 Levofloxacin/Dextrose 5%-Water [Levaquin in D5W 750 MG/150 ML] 750 mg Premix Bag 1 bag IV Q24H 12/13/20 14:00 Potassium Chloride Riders [KCL in Water 40 MEQ/100 ML] 40 meq Premix Bag 1 bag IV ONETIME 12/13/20 16:21 MAGNESIUM [CHEM] Routine POTASSIUM,K [CHEM] Routine 12/13/20 18:00 Magnesium Sulfate/Water [Magnesium Sulfate in Water 2 GM/50 ML] 2 gm Premix Bag 1 bag IV ONETIME - Plan Plan:: 80-year-old female was admitted for SIRS, with no leukocytosis on admission, patient appears to be vitally stable. Has developed skin rash noted on her back, trunk, bilaterally on her knees and shins. 1. Possible drug reaction: Vitally stable, physical examination demonstrates flat, papular, erythematous, blanching rash noted on trunk and extremities bilaterally. Vancomycin was discontinued day prior, however rash has not subsided therefore will discontinue current antibiotics, Will continue to treat aspiration pneumonia with Levaquin. 2. Aspiration pneumonia: Afebrile, leukocytosis has resolved CT angio of chest indicated subtle centrilobular nodular opacities which may reflect infectious or inflammatory process. Discontinue Zosyn and azithromycin due to possibility of causing rash. Change antibiotics to Levaquin Patient underwent bedside speech and swallow study with normal findings, however it is recommended patient undergo barium swallow study to further investigate possibility of aspiration due to underlying history of Parkinson's disease and recent symptoms. Possible modified barium swallow today with speech therapy and radiology 3. 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 4. Anemia: Mild improvement Hemoglobin of 8.8, patient is asymptomatic, Hemoccult positive will consider further studies with EGD and colonoscopy. If hemoglobin levels drop below 7 may consider providing packed red blood cells 2 units. Iron studies indicate iron deficiency anemia patient on ferrous sulfate 325 mg twice daily with meals, continue to monitor daily CBC 5. History of CHF: Appears euvolemic at this time Continue Lasix home regimen 40 twice daily. 6. Hypokalemia/ hypomagnesemia: Replete today and recheck VTE prophylaxis: Coumadin was held yesterday due to occult blood, will resume today with pharmacy ask. CODE STATUS: DNR/DNI Dispo: 1-2 days and pending placement when medically stable.
[2020-12-13 16:50] LABS: POTASSIUM,K 3.9 mmol/L (3.5-5.1)
[2020-12-13] MEDS: rOPINIRole 0.5 MG Tab PO SCH (21:00)
[2020-12-13] MEDS: Rosuvastatin 10 MG Tab PO SCH (21:00)
[2020-12-13] MEDS: Primidone 50 MG Tab PO SCH (21:00)
[2020-12-14 07:51] LABS: BLOOD UREA NITROGEN,BUN 8 mg/dL (7.0-18.0); CARBON DIOXIDE,CO2 27.1 mmol/L (21.0-32.0); GLUCOSE RANDOM 92 mg/dL (74-106)
[2020-12-14] MEDS: Pantoprazole 40 MG in Sodium Chloride 0.9% 10 ML IV SCH ×2 (08:07→20:33)
[2020-12-14] MEDS: Ferrous Sulfate 325 MG Tab PO SCH ×2 (08:50→16:57)
[2020-12-14] MEDS: Carvedilol 3.125 MG Tab PO SCH ×2 (08:51→20:34)
[2020-12-14] MEDS: Furosemide 40 MG Tab PO SCH (08:52)
[2020-12-14] MEDS: Gabapentin 300 MG Cap PO SCH ×2 (08:53→20:32)
[2020-12-14] MEDS: Levothyroxine 100 MCG Tab PO SCH (08:54)
[2020-12-14] MEDS: Calcium Carbonate 500 MG Tab.Chew PO SCH ×2 (08:55→20:33)
[2020-12-14] MEDS: Cholecalciferol (Vitamin D3) 25 MCG Tab PO SCH (08:56)
[2020-12-14] MEDS: Hydrocortisone 1% Crm 30 GM Tube TOP PRN (08:58)
[2020-12-14] MEDS: Levofloxacin/Dextrose 5%-Water 750 MG in Premix Bag 1 BAG IV SCH (12:28)
[2020-12-14] MEDS ORDERED: Warfarin 2.5 MG Tab PO SCH (14:00)
[2020-12-14 14:18] LABS: POTASSIUM,K 3.6 mmol/L (3.5-5.1); SODIUM,NA 139 mmol/L (136-145)
[2020-12-14 14:19] LABS: CHLORIDE,CL 104 mmol/L (98-107)
--- NOTE | 2020-12-14 16:15 | PCM.PN ---
- General Info Date of Service: 12/14/20 Admission Dx/Problem (Free Text): Admission Diagnosis/Problem Admission Diagnosis/Problem Sepsis Subjective Update: Patient is a geovany 80-year-old female admitted for aspiration pneumonia, has had labile hemoglobins, known to be Hemoccult positive. Denies any source of bleed, was thoroughly evaluated and found to have no obvious source of bleed. Warfarin was held and has been resumed due to subtherapeutic INR. Currently patient remains afebrile, stable however continues to have a rash on her back, knees, and shins bilaterally. Yesterday, additional antibiotics were discontinued due to being possible source of rash. All concerns were addressed at bedside. Functional Status: Reports: Tolerating Diet - Review of Systems General: Reports: No Symptoms HEENT: Reports: No Symptoms Pulmonary: Reports: No Symptoms Cardiovascular: Reports: No Symptoms Gastrointestinal: Reports: No Symptoms Genitourinary: Reports: No Symptoms Musculoskeletal: Reports: No Symptoms Skin: Reports: Pruritis, Rash Neurological: Reports: No Symptoms Psychiatric: Reports: No Symptoms - Patient Data Vitals - Most Recent: Last Vital Signs Temp 96.7 F L 12/14/20 11:36 Pulse 88 12/14/20 11:36 Resp 18 12/14/20 11:36 BP 107/52 L 12/14/20 11:36 Pulse Ox 96 12/14/20 11:36 Weight - Most Recent: 202 lb 13.204 oz I&O - Last 24 Hours: Intake & Output 12/14/20 12/14/20 12/14/20 06:59 14:59 22:59 Intake Total 900 54 Output Total 1000 Balance -100 54 Lab Results Last 24 Hours: Laboratory Results - last 24 hr 12/13/20 12/14/20 12/14/20 Range/Units 16:21 07:15 07:15 WBC 19.42 H (4.0-11.0) K/uL RBC 3.12 L (4.30-5.90) M/uL Hgb 8.5 L (12.0-16.0) g/dL Hct 27.6 L (36.0-46.0) % MCV 88.5 (80.0-98.0) fL MCH 27.2 (27.0-32.0) pg MCHC 30.8 L (31.0-37.0) g/dL RDW Std Deviation 52.8 (28.0-62.0) fl RDW Coeff of Sebastien 16 H (11.0-15.0) % Plt Count 341 (150-400) K/uL MPV 9.50 (7.40-12.00) fL Neut % (Auto) 88.4 H (48.0-80.0) % Lymph % (Auto) 5.9 L (16.0-40.0) % [place] % (Auto) 4.4 (0.0-15.0) % Eos % (Auto) 1.1 (0.0-7.0) % Baso % (Auto) 0.2 (0.0-1.5) % Neut # (Auto) 17.2 H (1.4-5.7) K/uL Lymph # (Auto) 1.1 (0.6-2.4) K/uL [place] # (Auto) 0.9 H (0.0-0.8) K/uL Eos # (Auto) 0.2 (0.0-0.7) K/uL Baso # (Auto) 0.0 (0.0-0.1) K/uL Nucleated RBC % 0.2 /100WBC Nucleated RBCs # 0 K/uL Sodium 139 (136-145) mmol/L Potassium 3.9 3.6 (3.5-5.1) mmol/L Chloride 104 (98-107) mmol/L Carbon Dioxide 27.1 (21.0-32.0) mmol/L BUN 8 (7.0-18.0) mg/dL Creatinine 0.8 (0.6-1.0) mg/dL Est Cr Clr Drug Dosing 52.72 mL/min Estimated GFR (MDRD) > 60.0 ml/min Glucose 92 (74-106) mg/dL Calcium 8.0 L (8.5-10.1) mg/dL Phosphorus 2.2 L (2.6-4.7) mg/dL Magnesium 1.6 L 1.8 (1.8-2.4) mg/dL Total Bilirubin 0.2 (0.2-1.0) mg/dL AST 22 (15-37) IU/L ALT 24 (14-63) IU/L Alkaline Phosphatase 84 (46-116) U/L Total Protein 5.4 L (6.4-8.2) g/dL Albumin 1.9 L (3.4-5.0) g/dL Globulin 3.5 (2.6-4.0) g/dL Albumin/Globulin Ratio 0.5 L (0.9-1.6) Brando Results Last 24 Hours: Microbiology 12/09/20 15:37 Aerobic Blood Culture - Final Blood - Venous NO GROWTH AFTER 5 DAYS Anaerobic Blood Culture - Final NO GROWTH AFTER 5 DAYS 12/09/20 16:13 Aerobic Blood Culture - Preliminary Blood - Venous - Lab Draw NO GROWTH AFTER 4 DAYS Anaerobic Blood Culture - Preliminary NO GROWTH AFTER 4 DAYS Med Orders - Current: Current Medications Acetaminophen (Acetaminophen 325 Mg Tab) 650 mg PO Q4H PRN PRN Reason: Pain (Mild 1-3)/fever Last Admin: 12/10/20 00:38 Dose: 650 mg Documented by: Acetaminophen (Acetaminophen 500 Mg Tab) 500 mg PO Q4H PRN PRN Reason: Fever Last Admin: 12/10/20 21:31 Dose: 500 mg Documented by: Albuterol/Ipratropium (Albuterol/Ipratropium 3.0-0.5 Mg/3 Ml Neb Soln) 3 ml NEB Q4HRRT PRN PRN Reason: Shortness Of Breath/wheezing Alprazolam (Alprazolam 0.5 Mg Tab) 1 mg PO BEDTIME PRN PRN Reason: Anxiety Last Admin: 12/11/20 23:02 Dose: 1 mg Documented by: Calcium Carbonate/Glycine (Calcium Carbonate 500 Mg Tab.Chew) 500 mg PO BID REPLACED BY [facility] Last Admin: 12/14/20 08:55 Dose: 500 mg Documented by: Carvedilol (Carvedilol 3.125 Mg Tab) 3.125 mg PO BID REPLACED BY [facility] Last Admin: 12/14/20 08:51 Dose: 3.125 mg Documented by: Cholecalciferol (Cholecalciferol (Vitamin D3) 25 Mcg Tab) 25 mcg PO DAILY REPLACED BY [facility] Last Admin: 12/14/20 08:56 Dose: 25 mcg Documented by: Ferrous Sulfate (Ferrous Sulfate 325 Mg Tab) 325 mg PO BIDMEALS REPLACED BY [facility] Last Admin: 12/14/20 08:50 Dose: 325 mg Documented by: Gabapentin (Gabapentin 300 Mg Cap) 300 mg PO BID REPLACED BY [facility] Last Admin: 12/14/20 08:53 Dose: 300 mg Documented by: Pantoprazole Sodium 40 mg/ (Sodium Chloride) 10 mls @ 300 mls/hr IV BID REPLACED BY [facility] Last Admin: 12/14/20 08:07 Dose: 300 mls/hr Documented by: Levofloxacin/Dextrose 750 mg/ (Premix) 150 mls @ 100 mls/hr IV Q24H REPLACED BY [facility] Last Admin: 12/14/20 12:28 Dose: 100 mls/hr Documented by: Levothyroxine Sodium (Levothyroxine 100 Mcg Tab) 100 mcg PO DAILY REPLACED BY [facility] Last Admin: 12/14/20 08:54 Dose: 100 mcg Documented by: Ondansetron HCl (Ondansetron 4 Mg/2 Ml Sdv) 4 mg IVPUSH Q4H PRN PRN Reason: Nausea/Vomiting Last Admin: 12/11/20 09:56 Dose: 4 mg Documented by: Primidone (Primidone 50 Mg Tab) 150 mg PO BEDTIME REPLACED BY [facility] Last Admin: 12/13/20 21:00 Dose: 150 mg Documented by: Ropinirole HCl (Ropinirole 0.5 Mg Tab) 0.5 mg PO BEDTIME REPLACED BY [facility] Last Admin: 12/13/20 21:00 Dose: 0.5 mg Documented by: Rosuvastatin Calcium (Rosuvastatin 10 Mg Tab) 20 mg PO BEDTIME REPLACED BY [facility] Last Admin: 12/13/20 21:00 Dose: 20 mg Documented by: Sodium Chloride (Sodium Chloride 0.9% 10 Ml Syringe) 10 ml FLUSH ASDIRECTED PRN PRN Reason: Keep Vein Open Last Admin: 12/09/20 15:49 Dose: 10 ml Documented by: Sodium Chloride (Sodium Chloride 0.9% 2.5 Ml Syringe) 2.5 ml FLUSH ASDIRECTED PRN PRN Reason: Keep Vein Open Last Admin: 12/09/20 15:49 Dose: 2.5 ml Documented by: Sodium Phosphate (Phosphorus #1 250 Mg Tab) 250 mg PO QID REPLACED BY [facility] Warfarin Sodium (Warfarin Ask Dosing) 1 each PO DAILY@1400 REPLACED BY [facility] Last Admin: 12/14/20 13:17 Dose: Not Given Documented by: Discontinued Medications Acetaminophen (Acetaminophen 500 Mg Tab) 1,000 mg PO ONETIME ONE Stop: 12/09/20 15:50 Last Admin: 12/09/20 15:55 Dose: 1,000 mg Documented by: Azithromycin (Azithromycin 250 Mg Tab) 500 mg PO Q24H REPLACED BY [facility] Last Admin: 12/13/20 09:26 Dose: 500 mg Documented by: Diphenhydramine HCl (Diphenhydramine 25 Mg Cap) 25 mg PO ONETIME ONE Stop: 12/13/20 00:34 Last Admin: 12/13/20 00:59 Dose: 25 mg Documented by: Furosemide (Furosemide 40 Mg Tab) 40 mg PO BID REPLACED BY [facility] Last Admin: 12/14/20 08:52 Dose: 40 mg Documented by: Hydrocortisone (Hydrocortisone 1% Crm 30 Gm Tube) 0 gm TOP Q4H PRN PRN Reason: Itching Last Admin: 12/14/20 08:58 Dose: 1 each Documented by: Sodium Chloride (Normal Saline) 1,000 mls @ 999 mls/hr IV .Bolus ONE Stop: 12/09/20 16:39 Last Admin: 12/09/20 15:49 Dose: 999 mls/hr Documented by: Sodium Chloride (Normal Saline) 1,000 mls @ 999 mls/hr IV .Bolus ONE Stop: 12/09/20 16:51 Last Admin: 12/09/20 16:43 Dose: 999 mls/hr Documented by: Piperacillin Sod/Tazobactam (Sod 4.5 gm/ Sodium Chloride) 100 mls @ 100 mls/hr IV ONETIME ONE Stop: 12/09/20 19:15 Last Admin: 12/09/20 19:16 Dose: 100 mls/hr Documented by: Vancomycin HCl 2 gm/ Premix 400 mls @ 200 mls/hr IV STAT ONE Stop: 12/09/20 20:15 Last Admin: 12/09/20 21:43 Dose: 200 mls/hr Documented by: Lactated Ringer's (Ringers, Lactated) 1,000 mls @ 125 mls/hr IV ASDIRECTED REPLACED BY [facility] Last Admin: 12/11/20 07:09 Dose: 125 mls/hr Documented by: Pantoprazole Sodium 40 mg/ (Sodium Chloride) 10 mls @ 300 mls/hr IV Q24H REPLACED BY [facility] Last Admin: 12/10/20 18:31 Dose: 300 mls/hr Documented by: Piperacillin Sod/Tazobactam (Sod 3.375 gm/ Sodium Chloride) 50 mls @ 100 mls/hr IV Q8H REPLACED BY [facility] Last Admin: 12/13/20 08:23 Dose: 100 mls/hr Documented by: Vancomycin HCl 1.25 gm/ Sodium (Chloride) 250 mls @ 166.667 mls/hr IV Q24H REPLACED BY [facility] Last Admin: 12/10/20 21:36 Dose: 166.667 mls/hr Documented by: Lactated Ringer's (Ringers, Lactated) 500 mls @ 999 mls/hr IV ONETIME ONE Stop: 12/09/20 22:15 Last Admin: 12/09/20 21:53 Dose: 999 mls/hr Documented by: Magnesium Sulfate 2 gm/ Premix 50 mls @ 25 mls/hr IV Q1H REPLACED BY [facility] Magnesium Sulfate 2 gm/ Premix 50 mls @ 12.5 mls/hr IV ONETIME ONE Stop: 12/10/20 22:54 Last Admin: 12/10/20 19:45 Dose: 12.5 mls/hr Documented by: Magnesium Sulfate 2 gm/ Premix 50 mls @ 12.5 mls/hr IV ONETIME ONE Stop: 12/12/20 11:48 Last Admin: 12/12/20 10:21 Dose: 12.5 mls/hr Documented by: Iron Sucrose 200 mg/ Sodium (Chloride) 110 mls @ 400 mls/hr IV ONETIME ONE Stop: 12/12/20 14:58 Last Admin: 12/12/20 15:29 Dose: 400 mls/hr Documented by: Potassium Chloride 40 meq/ (Premix) 100 mls @ 25 mls/hr IV ONETIME ONE Stop: 12/13/20 15:57 Last Admin: 12/13/20 14:10 Dose: Not Given Documented by: Magnesium Sulfate 2 gm/ Premix 50 mls @ 12.5 mls/hr IV ONETIME ONE Stop: 12/13/20 16:05 Last Admin: 12/13/20 14:11 Dose: Not Given Documented by: Potassium Chloride 40 meq/ (Premix) 100 mls @ 25 mls/hr IV ONETIME ONE Stop: 12/13/20 17:59 Last Admin: 12/13/20 14:33 Dose: 25 mls/hr Documented by: Magnesium Sulfate 2 gm/ Premix 50 mls @ 12.5 mls/hr IV ONETIME ONE Stop: 12/13/20 21:59 Last Admin: 12/13/20 18:54 Dose: 12.5 mls/hr Documented by: Iopamidol (Iopamidol 755 Mg/Ml 500 Ml Multipack Bottle) 100 ml IVPUSH ONETIME ONE Stop: 12/09/20 18:51 Last Admin: 12/09/20 18:50 Dose: 100 ml Documented by: Lidocaine HCl (Lidocaine 1% 20 Ml Mdv) Confirm Administered Dose 20 ml .ROUTE .STK-MED ONE Stop: 12/12/20 18:42 Last Admin: 12/12/20 20:04 Dose: Not Given Documented by: Non-Formulary Medication (Alprazolam [Xanax Xr]) 1 mg PO DAILY PRN PRN Reason: Anxiety Non-Formulary Medication (Calcium Carbonate [Calcium]) 600 mg PO BID REPLACED BY [facility] Last Admin: 12/09/20 22:35 Dose: Not Given Documented by: Non-Formulary Medication (Ropinirole) 0.5 mg PO BEDTIME REPLACED BY [facility] Last Admin: 12/09/20 22:35 Dose: Not Given Documented by: Non-Formulary Medication (Rosuvastatin Calcium [Rosuvastatin Calcium]) 20 mg PO BEDTIME REPLACED BY [facility] Last Admin: 12/09/20 22:35 Dose: Not Given Documented by: Potassium Chloride (Potassium Chloride 10% 20 Meq/15 Ml Soln 15 Ml Ud Cup) 20 meq PO ONETIME ONE Stop: 12/10/20 18:52 Last Admin: 12/11/20 02:11 Dose: Not Given Documented by: Potassium Chloride (Potassium Chloride 20 Meq Tab.Er) 20 meq PO ONETIME ONE Stop: 12/11/20 00:21 Last Admin: 12/11/20 01:10 Dose: 20 meq Documented by: Potassium Chloride (Potassium Chloride 10 Meq Tab.Er) 40 meq PO ONETIME ONE Stop: 12/11/20 14:01 Last Admin: 12/11/20 16:43 Dose: 40 meq Documented by: Potassium Chloride (Potassium Chloride 20 Meq Tab.Er) Confirm Administered Dose 40 meq .ROUTE .STK-MED ONE Stop: 12/11/20 16:09 Last Admin: 12/11/20 16:44 Dose: Not Given Documented by: Potassium Chloride (Potassium Chloride 10 Meq Tab.Er) Confirm Administered Dose 40 meq .ROUTE .STK-MED ONE Stop: 12/11/20 16:44 Last Admin: 12/11/20 17:10 Dose: Not Given Documented by: Potassium Chloride (Potassium Chloride 20 Meq Tab.Er) 40 meq PO ONETIME ONE Stop: 12/12/20 07:50 Last Admin: 12/12/20 09:03 Dose: 40 meq Documented by: Potassium Chloride (Potassium Chloride 20 Meq Tab.Er) 40 meq PO ONETIME ONE Stop: 12/12/20 12:01 Last Admin: 12/12/20 12:57 Dose: 40 meq Documented by: Potassium Chloride (Potassium Chloride 20 Meq Tab.Er) 40 meq PO ONETIME ONE Stop: 12/13/20 11:57 Last Admin: 12/13/20 12:53 Dose: 40 meq Documented by: Vancomycin HCl (Pharmacy To Dose - Vancomycin) 1 dose .XX ASDIRECTED REPLACED BY [facility] Warfarin Sodium (Warfarin Ask Dosing) 1 each PO ASDIRECTED REPLACED BY [facility] Warfarin Sodium (Warfarin 5 Mg Tab) 5 mg PO 12/11/20@1400 REPLACED BY [facility] Stop: 12/11/20 14:01 Last Admin: 12/11/20 16:35 Dose: 5 mg Documented by: Warfarin Sodium (Warfarin 5 Mg Tab) Confirm Administered Dose 5 mg .ROUTE .STK- MED ONE Stop: 12/11/20 16:08 Last Admin: 12/11/20 16:44 Dose: Not Given Documented by: Warfarin Sodium (Warfarin 5 Mg Tab) 5 mg PO 12/12/20@1399 REPLACED BY [facility] Stop: 12/12/20 16:00 Last Admin: 12/12/20 13:57 Dose: 5 mg Documented by: Warfarin Sodium (Warfarin 5 Mg Tab) 5 mg PO 12/13/20@1400 REPLACED BY [facility] Stop: 12/13/20 14:01 Last Admin: 12/13/20 13:05 Dose: 5 mg Documented by: Warfarin Sodium (Warfarin 2.5 Mg Tab) 2.5 mg PO DAILY@1400 REPLACED BY [facility] Stop: 12/14/20 15:00 Last Admin: 12/14/20 13:16 Dose: 2.5 mg Documented by: Zinc Acetate/Diphenhydramine (Diphenhydramine/Zinc Acetate 1% Crm 28.3 Gm Tube) 0 gm TOP Q4H PRN PRN Reason: Itching - Exam Quality Assessment: DVT Prophylaxis Urinary Catheter Total Time: 2 General: Alert, Oriented, Cooperative, No Acute Distress HEENT: Pupils Equal, Pupils Reactive, EOMI, Mucous Membr. Moist/[place] Neck: Supple, No JVD Lungs: Clear to Auscultation, Normal Respiratory Effort Cardiovascular: Regular Rate, Regular Rhythm GI/Abdominal Exam: Normal Bowel Sounds, Soft, Non-Tender (Female) Exam: Normal External Exam, Normal Speculum Exam Back Exam: Normal Inspection, Full Range of Motion Extremities: Normal Inspection, Normal Range of Motion, No Pedal Edema, Normal Capillary Refill Peripheral Pulses: 2+: Carotid (L), Carotid (R), Dorsalis Pedis (L), Dorsalis Pedis (R) Skin: Warm, Dry, Intact, Rash Neurological: No New Focal Deficit Psy/Mental Status: Alert, Normal Affect, Normal Mood - Patient Data Lab Results Last 24 hrs: Laboratory Results - last 24 hr 12/13/20 12/14/20 12/14/20 Range/Units 16:21 07:15 07:15 WBC 19.42 H (4.0-11.0) K/uL RBC 3.12 L (4.30-5.90) M/uL Hgb 8.5 L (12.0-16.0) g/dL Hct 27.6 L (36.0-46.0) % MCV 88.5 (80.0-98.0) fL MCH 27.2 (27.0-32.0) pg MCHC 30.8 L (31.0-37.0) g/dL RDW Std Deviation 52.8 (28.0-62.0) fl RDW Coeff of Sebastien 16 H (11.0-15.0) % Plt Count 341 (150-400) K/uL MPV 9.50 (7.40-12.00) fL Neut % (Auto) 88.4 H (48.0-80.0) % Lymph % (Auto) 5.9 L (16.0-40.0) % [place] % (Auto) 4.4 (0.0-15.0) % Eos % (Auto) 1.1 (0.0-7.0) % Baso % (Auto) 0.2 (0.0-1.5) % Neut # (Auto) 17.2 H (1.4-5.7) K/uL Lymph # (Auto) 1.1 (0.6-2.4) K/uL [place] # (Auto) 0.9 H (0.0-0.8) K/uL Eos # (Auto) 0.2 (0.0-0.7) K/uL Baso # (Auto) 0.0 (0.0-0.1) K/uL Nucleated RBC % 0.2 /100WBC Nucleated RBCs # 0 K/uL Sodium 139 (136-145) mmol/L Potassium 3.9 3.6 (3.5-5.1) mmol/L Chloride 104 (98-107) mmol/L Carbon Dioxide 27.1 (21.0-32.0) mmol/L BUN 8 (7.0-18.0) mg/dL Creatinine 0.8 (0.6-1.0) mg/dL Est Cr Clr Drug Dosing 52.72 mL/min Estimated GFR (MDRD) > 60.0 ml/min Glucose 92 (74-106) mg/dL Calcium 8.0 L (8.5-10.1) mg/dL Phosphorus 2.2 L (2.6-4.7) mg/dL Magnesium 1.6 L 1.8 (1.8-2.4) mg/dL Total Bilirubin 0.2 (0.2-1.0) mg/dL AST 22 (15-37) IU/L ALT 24 (14-63) IU/L Alkaline Phosphatase 84 (46-116) U/L Total Protein 5.4 L (6.4-8.2) g/dL Albumin 1.9 L (3.4-5.0) g/dL Globulin 3.5 (2.6-4.0) g/dL Albumin/Globulin Ratio 0.5 L (0.9-1.6) Result Diagrams: 12/14/20 07:15 12/14/20 07:15 Brando Results Last 24 hrs: Microbiology 12/09/20 15:37 Aerobic Blood Culture - Final Blood - Venous NO GROWTH AFTER 5 DAYS Anaerobic Blood Culture - Final NO GROWTH AFTER 5 DAYS 12/09/20 16:13 Aerobic Blood Culture - Preliminary Blood - Venous - Lab Draw NO GROWTH AFTER 4 DAYS Anaerobic Blood Culture - Preliminary NO GROWTH AFTER 4 DAYS Sepsis Event Note - Evaluation Sepsis Screening Result: No Definite Risk - Focused Exam Vital Signs: Vital Signs Temp Pulse Pulse Resp BP BP Pulse Ox 12/14/20 11:36 96.7 F L 88 18 107/52 L 96 12/14/20 09:42 93 12/14/20 08:51 97 103/54 L 12/14/20 07:00 97.6 F 89 18 111/53 L 89 L - Problem List Review Problem List Initiated/Reviewed/Updated: Yes - My Orders Last 24 Hours: My Active Orders 12/14/20 15:54 Phosphorus #1 [Neutra-Phos] 250 mg PO QID - Plan Plan:: 80-year-old female was admitted for aspiration pneumonia, recently developed skin rash with mild improvement. 1. Rashpossible drug reaction: Mild improvement physical examination demonstrates flat, papular, erythematous, blanching rash noted on trunk and extremities bilaterally. All antibiotics were discontinued.antibiotic to cover aspiration pneumonia was switched to Levaquin yesterday. 2. Leukocytosis: Afebrile, no obvious source of infection, chest examination was unremarkable, patient states that she is feeling better denies any cough, shortness of breath. We will repeat UA and chest x-ray to rule out any additional source of infection. 3. Aspiration pneumonia: Improved, remains afebrile, however has developed elevated white blood cell count 19.[address] angio of chest on admission indicated subtle centrilobular nodular opacities which may reflect infectious or inflammatory process. Continue to treat with Levaquin Patient underwent bedside speech and swallow study with normal findings, however it is recommended patient undergo barium swallow study to further investigate possibility of aspiration due to underlying history of Parkinson's disease and recent symptoms. Recommended modified barium speech evaluation. 4. 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 Patient is well-known to [facility] by pharmacy; therefore avoided to ensure she does not become supratherapeutic as per her history. 5. Normocytic anemia: 8.5 today Is asymptomatic, Hemoccult positive will consider further studies with EGD however patient does confirm that she will not undergo colonoscopy. If hemoglobin levels drop below 7 may consider providing packed red blood cells 2 units. Recent iron studies indicate iron deficiency anemia patient on ferrous sulfate 325 mg twice daily with meals, continue to monitor daily CBC 5. History of CHF: Appears euvolemic at this time Echo grossly normal with 60 to 65% ejection fraction Held Lasix today, will resume home dose of Lasix 40 twice daily 6. Hypokalemia/ hypomagnesemia/hypophosphatemia: Replete today and recheck VTE prophylaxis: Coumadin CODE STATUS: DNR/DNI Dispo: 1-2 days and pending placement when medically stable.
[2020-12-14] MEDS: Phosphorus #1 250 MG Tab PO SCH ×2 (17:01→23:02)
--- NOTE | 2020-12-14 18:24 | CR ---
For Patients: As a result of the Cures Act, medical imaging exams and procedure reports are released immediately into your electronic medical record. You may view this report before your referring provider. If you have questions, please contact your health care provider. HISTORY: Pneumonia. TECHNIQUE: Two-view chest. COMPARISON: Chest CT 10/09/2020. Chest x-ray 10/09/2020. FINDINGS: No airspace consolidation. Unchanged mild elevation of the left hemidiaphragm. No pleural effusion or pneumothorax. Pulmonary vasculature and cardiomediastinal silhouette are within normal limits. Degenerative changes of the spine. IMPRESSION: No acute cardiopulmonary abnormality. Dictated by Mathew Leigh MD @ 12/14/2020 6:21:[address] Mathew Leigh @ Dec 14 2020 6:21PM
[2020-12-14] MEDS: Primidone 50 MG Tab PO SCH (20:32)
[2020-12-14] MEDS: Rosuvastatin 10 MG Tab PO SCH (20:32)
[2020-12-14] MEDS: rOPINIRole 0.5 MG Tab PO SCH (20:33)
[2020-12-15] MEDS: Phosphorus #1 250 MG Tab PO SCH ×3 (07:30→17:44)
[2020-12-15 08:03] LABS: BLOOD UREA NITROGEN,BUN 8 mg/dL (7.0-18.0); CARBON DIOXIDE,CO2 26.9 mmol/L (21.0-32.0); CHLORIDE,CL 104 mmol/L (98-107); GLUCOSE RANDOM 96 mg/dL (74-106); POTASSIUM,K 3.2 mmol/L (3.5-5.1); SODIUM,NA 141 mmol/L (136-145)
[2020-12-15] MEDS: Carvedilol 3.125 MG Tab PO SCH ×2 (08:26→20:34)
[2020-12-15] MEDS: Ferrous Sulfate 325 MG Tab PO SCH ×2 (08:26→17:44)
[2020-12-15] MEDS: Levothyroxine 100 MCG Tab PO SCH (08:26)
[2020-12-15] MEDS: Calcium Carbonate 500 MG Tab.Chew PO SCH ×2 (08:26→20:34)
[2020-12-15] MEDS: Gabapentin 300 MG Cap PO SCH ×2 (08:26→20:34)
[2020-12-15] MEDS: Cholecalciferol (Vitamin D3) 25 MCG Tab PO SCH (08:26)
[2020-12-15] MEDS: Pantoprazole 40 MG in Sodium Chloride 0.9% 10 ML IV SCH ×2 (08:26→20:17)
[2020-12-15] MEDS ORDERED: Levofloxacin/Dextrose 5%-Water 750 MG in Premix Bag 1 BAG IV SCH (12:00)
--- NOTE | 2020-12-15 13:41 | PCM.PN ---
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 Denies any source of bleed, was thoroughly evaluated and found to have no obvious source of bleed. Warfarin was resumed, pharmacy continues to dose per daily INR's. Patient remains afebrile, stable, states that she has much improved. Specifically the rash has mostly resolved. Functional Status: Reports: Tolerating Diet, Urinating - Review of Systems General: Reports: No Symptoms HEENT: Reports: No Symptoms Pulmonary: Reports: No Symptoms Cardiovascular: Reports: No Symptoms Gastrointestinal: Reports: No Symptoms Genitourinary: Reports: No Symptoms Musculoskeletal: Reports: No Symptoms Skin: Reports: No Symptoms Neurological: Reports: No Symptoms Psychiatric: Reports: No Symptoms - Patient Data Vitals - Most Recent: Last Vital Signs Temp 97.2 F 12/15/20 11:49 Pulse 80 12/15/20 11:49 Resp 17 12/15/20 11:49 BP 106/60 12/15/20 11:49 Pulse Ox 95 12/15/20 11:49 Weight - Most Recent: 185 lb 8 oz I&O - Last 24 Hours: Intake & Output 12/14/20 12/15/20 12/15/20 22:59 06:59 14:59 Intake Total 1090 550 Output Total 500 600 Balance 590 -50 Lab Results Last 24 Hours: Laboratory Results - last 24 hr 12/14/20 12/14/20 12/15/20 Range/Units 07:15 17:05 06:08 WBC (4.0-11.0) K/uL RBC (4.30-5.90) M/uL Hgb (12.0-16.0) g/dL Hct (36.0-46.0) % MCV (80.0-98.0) fL MCH (27.0-32.0) pg MCHC (31.0-37.0) g/dL RDW Std Deviation (28.0-62.0) fl RDW Coeff of Sebastien (11.0-15.0) % Plt Count (150-400) K/uL MPV (7.40-12.00) fL Neut % (Auto) (48.0-80.0) % Lymph % (Auto) (16.0-40.0) % [place] % (Auto) (0.0-15.0) % Eos % (Auto) (0.0-7.0) % Baso % (Auto) (0.0-1.5) % Neut # (Auto) (1.4-5.7) K/uL Lymph # (Auto) (0.6-2.4) K/uL [place] # (Auto) (0.0-0.8) K/uL Eos # (Auto) (0.0-0.7) K/uL Baso # (Auto) (0.0-0.1) K/uL Nucleated RBC % /100WBC Nucleated RBCs # K/uL INR 2.08 Sodium 139 (136-145) mmol/L Potassium 3.6 (3.5-5.1) mmol/L Chloride 104 (98-107) mmol/L Carbon Dioxide (21.0-32.0) mmol/L BUN (7.0-18.0) mg/dL Creatinine (0.6-1.0) mg/dL Est Cr Clr Drug Dosing mL/min Estimated GFR (MDRD) ml/min Glucose (74-106) mg/dL Calcium (8.5-10.1) mg/dL Phosphorus (2.6-4.7) mg/dL Magnesium (1.8-2.4) mg/dL Total Bilirubin (0.2-1.0) mg/dL AST (15-37) IU/L ALT (14-63) IU/L Alkaline Phosphatase (46-116) U/L Total Protein (6.4-8.2) g/dL Albumin (3.4-5.0) g/dL Globulin (2.6-4.0) g/dL Albumin/Globulin Ratio (0.9-1.6) Urine Color YELLOW Urine Appearance CLEAR Urine pH 5.5 (5.0-8.0) Ur Specific [place] 1.010 (1.001-1.035) Urine Protein NEGATIVE (NEGATIVE) mg/dL Urine Glucose (UA) NEGATIVE (NEGATIVE) mg/dL Urine Ketones NEGATIVE (NEGATIVE) mg/dL Urine Occult Blood NEGATIVE (NEGATIVE) Urine Nitrite NEGATIVE (NEGATIVE) Urine Bilirubin NEGATIVE (NEGATIVE) Urine Urobilinogen 0.2 (<2.0) EU/dL Ur Leukocyte Esterase NEGATIVE (NEGATIVE) 12/15/20 12/15/20 Range/Units 07:28 07:28 WBC 16.27 H (4.0-11.0) K/uL RBC 2.78 L (4.30-5.90) M/uL Hgb 7.7 L (12.0-16.0) g/dL Hct 24.6 L (36.0-46.0) % MCV 88.5 (80.0-98.0) fL MCH 27.7 (27.0-32.0) pg MCHC 31.3 (31.0-37.0) g/dL RDW Std Deviation 52.8 (28.0-62.0) fl RDW Coeff of Sebastien 16 H (11.0-15.0) % Plt Count 350 (150-400) K/uL MPV 9.20 (7.40-12.00) fL Neut % (Auto) 84.9 H (48.0-80.0) % Lymph % (Auto) 7.8 L (16.0-40.0) % [place] % (Auto) 6.0 (0.0-15.0) % Eos % (Auto) 1.2 (0.0-7.0) % Baso % (Auto) 0.1 (0.0-1.5) % Neut # (Auto) 13.8 H (1.4-5.7) K/uL Lymph # (Auto) 1.3 (0.6-2.4) K/uL [place] # (Auto) 1.0 H (0.0-0.8) K/uL Eos # (Auto) 0.2 (0.0-0.7) K/uL Baso # (Auto) 0.0 (0.0-0.1) K/uL Nucleated RBC % 0.3 /100WBC Nucleated RBCs # 0 K/uL INR Sodium 141 (136-145) mmol/L Potassium 3.2 L (3.5-5.1) mmol/L Chloride 104 (98-107) mmol/L Carbon Dioxide 26.9 (21.0-32.0) mmol/L BUN 8 (7.0-18.0) mg/dL Creatinine 0.8 (0.6-1.0) mg/dL Est Cr Clr Drug Dosing 52.72 mL/min Estimated GFR (MDRD) > 60.0 ml/min Glucose 96 (74-106) mg/dL Calcium 8.0 L (8.5-10.1) mg/dL Phosphorus 3.2 (2.6-4.7) mg/dL Magnesium 1.6 L (1.8-2.4) mg/dL Total Bilirubin 0.2 (0.2-1.0) mg/dL AST 20 (15-37) IU/L ALT 22 (14-63) IU/L Alkaline Phosphatase 80 (46-116) U/L Total Protein 5.3 L (6.4-8.2) g/dL Albumin 1.9 L (3.4-5.0) g/dL Globulin 3.4 (2.6-4.0) g/dL Albumin/Globulin Ratio 0.6 L (0.9-1.6) Urine Color Urine Appearance Urine pH (5.0-8.0) Ur Specific [place] (1.001-1.035) Urine Protein (NEGATIVE) mg/dL Urine Glucose (UA) (NEGATIVE) mg/dL Urine Ketones (NEGATIVE) mg/dL Urine Occult Blood (NEGATIVE) Urine Nitrite (NEGATIVE) Urine Bilirubin (NEGATIVE) Urine Urobilinogen (<2.0) EU/dL Ur Leukocyte Esterase (NEGATIVE) Brando Results Last 24 Hours: Microbiology 12/09/20 16:13 Aerobic Blood Culture - Final Blood - Venous - Lab Draw NO GROWTH AFTER 5 DAYS Anaerobic Blood Culture - Final NO GROWTH AFTER 5 DAYS 12/09/20 15:37 Aerobic Blood Culture - Final Blood - Venous NO GROWTH AFTER 5 DAYS Anaerobic Blood Culture - Final NO GROWTH AFTER 5 DAYS Med Orders - Current: Current Medications Acetaminophen (Acetaminophen 500 Mg Tab) 500 mg PO Q4H PRN PRN Reason: Fever Last Admin: 12/10/20 21:31 Dose: 500 mg Documented by: Albuterol/Ipratropium (Albuterol/Ipratropium 3.0-0.5 Mg/3 Ml Neb Soln) 3 ml NEB Q4HRRT PRN PRN Reason: Shortness Of Breath/wheezing Alprazolam (Alprazolam 0.5 Mg Tab) 1 mg PO BEDTIME PRN PRN Reason: Anxiety Last Admin: 12/11/20 23:02 Dose: 1 mg Documented by: Calcium Carbonate/Glycine (Calcium Carbonate 500 Mg Tab.Chew) 500 mg PO BID [facility] Last Admin: 12/15/20 08:26 Dose: 500 mg Documented by: Carvedilol (Carvedilol 3.125 Mg Tab) 3.125 mg PO BID [facility] Last Admin: 12/15/20 08:26 Dose: 3.125 mg Documented by: Cholecalciferol (Cholecalciferol (Vitamin D3) 25 Mcg Tab) 25 mcg PO DAILY [facility] Last Admin: 12/15/20 08:26 Dose: 25 mcg Documented by: Ferrous Sulfate (Ferrous Sulfate 325 Mg Tab) 325 mg PO BIDMEALS [facility] Last Admin: 12/15/20 08:26 Dose: 325 mg Documented by: Gabapentin (Gabapentin 300 Mg Cap) 300 mg PO BID [facility] Last Admin: 12/15/20 08:26 Dose: 300 mg Documented by: Pantoprazole Sodium 40 mg/ (Sodium Chloride) 10 mls @ 300 mls/hr IV BID [facility] Last Admin: 12/15/20 08:26 Dose: 300 mls/hr Documented by: Levofloxacin (Levofloxacin 750 Mg Tab) 750 mg PO Q24H JAZMIN Stop: 12/20/20 12:01 Levothyroxine Sodium (Levothyroxine 100 Mcg Tab) 100 mcg PO DAILY [facility] Last Admin: 12/15/20 08:26 Dose: 100 mcg Documented by: Ondansetron HCl (Ondansetron 4 Mg/2 Ml Sdv) 4 mg IVPUSH Q4H PRN PRN Reason: Nausea/Vomiting Last Admin: 12/11/20 09:56 Dose: 4 mg Documented by: Primidone (Primidone 50 Mg Tab) 150 mg PO BEDTIME [facility] Last Admin: 12/14/20 20:32 Dose: 150 mg Documented by: Ropinirole HCl (Ropinirole 0.5 Mg Tab) 0.5 mg PO BEDTIME [facility] Last Admin: 12/14/20 20:33 Dose: 0.5 mg Documented by: Rosuvastatin Calcium (Rosuvastatin 10 Mg Tab) 20 mg PO BEDTIME [facility] Last Admin: 12/14/20 20:32 Dose: 20 mg Documented by: Sodium Chloride (Sodium Chloride 0.9% 10 Ml Syringe) 10 ml FLUSH ASDIRECTED PRN PRN Reason: Keep Vein Open Last Admin: 12/09/20 15:49 Dose: 10 ml Documented by: Sodium Chloride (Sodium Chloride 0.9% 2.5 Ml Syringe) 2.5 ml FLUSH ASDIRECTED PRN PRN Reason: Keep Vein Open Last Admin: 12/09/20 15:49 Dose: 2.5 ml Documented by: Sodium Phosphate (Phosphorus #1 250 Mg Tab) 250 mg PO QID [facility] Last Admin: 12/15/20 11:51 Dose: 250 mg Documented by: Warfarin Sodium (Warfarin Ask Dosing) 1 each PO DAILY@1400 [facility] Last Admin: 12/14/20 13:17 Dose: Not Given Documented by: Warfarin Sodium (Warfarin 2.5 Mg Tab) 2.5 mg PO DAILY@1400 [facility] Stop: 12/15/20 15:00 Discontinued Medications Acetaminophen (Acetaminophen 500 Mg Tab) 1,000 mg PO ONETIME ONE Stop: 12/09/20 15:50 Last Admin: 12/09/20 15:55 Dose: 1,000 mg Documented by: Acetaminophen (Acetaminophen 325 Mg Tab) 650 mg PO Q4H PRN PRN Reason: Pain (Mild 1-3)/fever Last Admin: 12/10/20 00:38 Dose: 650 mg Documented by: Azithromycin (Azithromycin 250 Mg Tab) 500 mg PO Q24H [facility] Last Admin: 12/13/20 09:26 Dose: 500 mg Documented by: Diphenhydramine HCl (Diphenhydramine 25 Mg Cap) 25 mg PO ONETIME ONE Stop: 12/13/20 00:34 Last Admin: 12/13/20 00:59 Dose: 25 mg Documented by: Furosemide (Furosemide 40 Mg Tab) 40 mg PO BID [facility] Last Admin: 12/14/20 08:52 Dose: 40 mg Documented by: Hydrocortisone (Hydrocortisone 1% Crm 30 Gm Tube) 0 gm TOP Q4H PRN PRN Reason: Itching Last Admin: 12/14/20 08:58 Dose: 1 each Documented by: Sodium Chloride (Normal Saline) 1,000 mls @ 999 mls/hr IV .Bolus ONE Stop: 12/09/20 16:39 Last Admin: 12/09/20 15:49 Dose: 999 mls/hr Documented by: Sodium Chloride (Normal Saline) 1,000 mls @ 999 mls/hr IV .Bolus ONE Stop: 12/09/20 16:51 Last Admin: 12/09/20 16:43 Dose: 999 mls/hr Documented by: Piperacillin Sod/Tazobactam (Sod 4.5 gm/ Sodium Chloride) 100 mls @ 100 mls/hr IV ONETIME ONE Stop: 12/09/20 19:15 Last Admin: 12/09/20 19:16 Dose: 100 mls/hr Documented by: Vancomycin HCl 2 gm/ Premix 400 mls @ 200 mls/hr IV STAT ONE Stop: 12/09/20 20:15 Last Admin: 12/09/20 21:43 Dose: 200 mls/hr Documented by: Lactated Ringer's (Ringers, Lactated) 1,000 mls @ 125 mls/hr IV ASDIRECTED [facility] Last Admin: 12/11/20 07:09 Dose: 125 mls/hr Documented by: Pantoprazole Sodium 40 mg/ (Sodium Chloride) 10 mls @ 300 mls/hr IV Q24H [facility] Last Admin: 12/10/20 18:31 Dose: 300 mls/hr Documented by: Piperacillin Sod/Tazobactam (Sod 3.375 gm/ Sodium Chloride) 50 mls @ 100 mls/hr IV Q8H [facility] Last Admin: 12/13/20 08:23 Dose: 100 mls/hr Documented by: Vancomycin HCl 1.25 gm/ Sodium (Chloride) 250 mls @ 166.667 mls/hr IV Q24H [facility] Last Admin: 12/10/20 21:36 Dose: 166.667 mls/hr Documented by: Lactated Ringer's (Ringers, Lactated) 500 mls @ 999 mls/hr IV ONETIME ONE Stop: 12/09/20 22:15 Last Admin: 12/09/20 21:53 Dose: 999 mls/hr Documented by: Magnesium Sulfate 2 gm/ Premix 50 mls @ 25 mls/hr IV Q1H [facility] Magnesium Sulfate 2 gm/ Premix 50 mls @ 12.5 mls/hr IV ONETIME ONE Stop: 12/10/20 22:54 Last Admin: 12/10/20 19:45 Dose: 12.5 mls/hr Documented by: Magnesium Sulfate 2 gm/ Premix 50 mls @ 12.5 mls/hr IV ONETIME ONE Stop: 12/12/20 11:48 Last Admin: 12/12/20 10:21 Dose: 12.5 mls/hr Documented by: Iron Sucrose 200 mg/ Sodium (Chloride) 110 mls @ 400 mls/hr IV ONETIME ONE Stop: 12/12/20 14:58 Last Admin: 12/12/20 15:29 Dose: 400 mls/hr Documented by: Levofloxacin/Dextrose 750 mg/ (Premix) 150 mls @ 100 mls/hr IV Q24H [facility] Last Admin: 12/14/20 12:28 Dose: 100 mls/hr Documented by: Potassium Chloride 40 meq/ (Premix) 100 mls @ 25 mls/hr IV ONETIME ONE Stop: 12/13/20 15:57 Last Admin: 12/13/20 14:10 Dose: Not Given Documented by: Magnesium Sulfate 2 gm/ Premix 50 mls @ 12.5 mls/hr IV ONETIME ONE Stop: 12/13/20 16:05 Last Admin: 12/13/20 14:11 Dose: Not Given Documented by: Potassium Chloride 40 meq/ (Premix) 100 mls @ 25 mls/hr IV ONETIME ONE Stop: 12/13/20 17:59 Last Admin: 12/13/20 14:33 Dose: 25 mls/hr Documented by: Magnesium Sulfate 2 gm/ Premix 50 mls @ 12.5 mls/hr IV ONETIME ONE Stop: 12/13/20 21:59 Last Admin: 12/13/20 18:54 Dose: 12.5 mls/hr Documented by: Levofloxacin/Dextrose 750 mg/ (Premix) 150 mls @ 100 mls/hr IV Q24H [facility] Stop: 12/20/20 12:01 Last Admin: 12/15/20 11:51 Dose: 100 mls/hr Documented by: Iopamidol (Iopamidol 755 Mg/Ml 500 Ml Multipack Bottle) 100 ml IVPUSH ONETIME ONE Stop: 12/09/20 18:51 Last Admin: 12/09/20 18:50 Dose: 100 ml Documented by: Lidocaine HCl (Lidocaine 1% 20 Ml Mdv) Confirm Administered Dose 20 ml .ROUTE .STK-MED ONE Stop: 12/12/20 18:42 Last Admin: 12/12/20 20:04 Dose: Not Given Documented by: Non-Formulary Medication (Alprazolam [Xanax Xr]) 1 mg PO DAILY PRN PRN Reason: Anxiety Non-Formulary Medication (Calcium Carbonate [Calcium]) 600 mg PO BID [facility] Last Admin: 12/09/20 22:35 Dose: Not Given Documented by: Non-Formulary Medication (Ropinirole) 0.5 mg PO BEDTIME [facility] Last Admin: 12/09/20 22:35 Dose: Not Given Documented by: Non-Formulary Medication (Rosuvastatin Calcium [Rosuvastatin Calcium]) 20 mg PO BEDTIME [facility] Last Admin: 12/09/20 22:35 Dose: Not Given Documented by: Potassium Chloride (Potassium Chloride 10% 20 Meq/15 Ml Soln 15 Ml Ud Cup) 20 meq PO ONETIME ONE Stop: 12/10/20 18:52 Last Admin: 12/11/20 02:11 Dose: Not Given Documented by: Potassium Chloride (Potassium Chloride 20 Meq Tab.Er) 20 meq PO ONETIME ONE Stop: 12/11/20 00:21 Last Admin: 12/11/20 01:10 Dose: 20 meq Documented by: Potassium Chloride (Potassium Chloride 10 Meq Tab.Er) 40 meq PO ONETIME ONE Stop: 12/11/20 14:01 Last Admin: 12/11/20 16:43 Dose: 40 meq Documented by: Potassium Chloride (Potassium Chloride 20 Meq Tab.Er) Confirm Administered Dose 40 meq .ROUTE .STK-MED ONE Stop: 12/11/20 16:09 Last Admin: 12/11/20 16:44 Dose: Not Given Documented by: Potassium Chloride (Potassium Chloride 10 Meq Tab.Er) Confirm Administered Dose 40 meq .ROUTE .STK-MED ONE Stop: 12/11/20 16:44 Last Admin: 12/11/20 17:10 Dose: Not Given Documented by: Potassium Chloride (Potassium Chloride 20 Meq Tab.Er) 40 meq PO ONETIME ONE Stop: 12/12/20 07:50 Last Admin: 12/12/20 09:03 Dose: 40 meq Documented by: Potassium Chloride (Potassium Chloride 20 Meq Tab.Er) 40 meq PO ONETIME ONE Stop: 12/12/20 12:01 Last Admin: 12/12/20 12:57 Dose: 40 meq Documented by: Potassium Chloride (Potassium Chloride 20 Meq Tab.Er) 40 meq PO ONETIME ONE Stop: 12/13/20 11:57 Last Admin: 12/13/20 12:53 Dose: 40 meq Documented by: Vancomycin HCl (Pharmacy To Dose - Vancomycin) 1 dose .XX ASDIRECTED [facility] Warfarin Sodium (Warfarin Ask Dosing) 1 each PO ASDIRECTED [facility] Warfarin Sodium (Warfarin 5 Mg Tab) 5 mg PO 12/11/20@1400 [facility] Stop: 12/11/20 14:01 Last Admin: 12/11/20 16:35 Dose: 5 mg Documented by: Warfarin Sodium (Warfarin 5 Mg Tab) Confirm Administered Dose 5 mg .ROUTE .STK- MED ONE Stop: 12/11/20 16:08 Last Admin: 12/11/20 16:44 Dose: Not Given Documented by: Warfarin Sodium (Warfarin 5 Mg Tab) 5 mg PO 12/12/20@1400 [facility] Stop: 12/12/20 16:00 Last Admin: 12/12/20 13:57 Dose: 5 mg Documented by: Warfarin Sodium (Warfarin 5 Mg Tab) 5 mg PO 12/13/20@1400 [facility] Stop: 12/13/20 14:01 Last Admin: 12/13/20 13:05 Dose: 5 mg Documented by: Warfarin Sodium (Warfarin 2.5 Mg Tab) 2.5 mg PO DAILY@1400 [facility] Stop: 12/14/20 15:00 Last Admin: 12/14/20 13:16 Dose: 2.5 mg Documented by: Zinc Acetate/Diphenhydramine (Diphenhydramine/Zinc Acetate 1% Crm 28.3 Gm Tube) 0 gm TOP Q4H PRN PRN Reason: Itching - Exam Urinary Catheter Total Time: 2 General: Alert, Oriented, Cooperative, No Acute Distress HEENT: Pupils Equal, Pupils Reactive, EOMI, Mucous Membr. Moist/[place] Neck: Supple, No JVD Lungs: Clear to Auscultation, Normal Respiratory Effort Cardiovascular: Regular Rate, Regular Rhythm GI/Abdominal Exam: Normal Bowel Sounds, Soft, Non-Tender, No Organomegaly, No Distention (Female) Exam: Normal External Exam, Normal Speculum Exam, Normal Bimanual Exam Back Exam: Normal Inspection, Full Range of Motion, Other (Rash is significantly improved) Extremities: Normal Inspection, Normal Range of Motion, Non-Tender, Normal Capillary Refill, Pedal Edema (1+) Peripheral Pulses: 2+: Carotid (L), Carotid (R), Dorsalis Pedis (L), Dorsalis Pedis (R) Skin: Warm, Dry, Intact Neurological: No New Focal Deficit Psy/Mental Status: Alert, Normal Affect, Normal Mood - Patient Data Lab Results Last 24 hrs: Laboratory Results - last 24 hr 12/14/20 12/14/20 12/15/20 Range/Units 07:15 17:05 06:08 WBC (4.0-11.0) K/uL RBC (4.30-5.90) M/uL Hgb (12.0-16.0) g/dL Hct (36.0-46.0) % MCV (80.0-98.0) fL MCH (27.0-32.0) pg MCHC (31.0-37.0) g/dL RDW Std Deviation (28.0-62.0) fl RDW Coeff of Sebastien (11.0-15.0) % Plt Count (150-400) K/uL MPV (7.40-12.00) fL Neut % (Auto) (48.0-80.0) % Lymph % (Auto) (16.0-40.0) % [place] % (Auto) (0.0-15.0) % Eos % (Auto) (0.0-7.0) % Baso % (Auto) (0.0-1.5) % Neut # (Auto) (1.4-5.7) K/uL Lymph # (Auto) (0.6-2.4) K/uL [place] # (Auto) (0.0-0.8) K/uL Eos # (Auto) (0.0-0.7) K/uL Baso # (Auto) (0.0-0.1) K/uL Nucleated RBC % /100WBC Nucleated RBCs # K/uL INR 2.08 Sodium 139 (136-145) mmol/L Potassium 3.6 (3.5-5.1) mmol/L Chloride 104 (98-107) mmol/L Carbon Dioxide (21.0-32.0) mmol/L BUN (7.0-18.0) mg/dL Creatinine (0.6-1.0) mg/dL Est Cr Clr Drug Dosing mL/min Estimated GFR (MDRD) ml/min Glucose (74-106) mg/dL Calcium (8.5-10.1) mg/dL Phosphorus (2.6-4.7) mg/dL Magnesium (1.8-2.4) mg/dL Total Bilirubin (0.2-1.0) mg/dL AST (15-37) IU/L ALT (14-63) IU/L Alkaline Phosphatase (46-116) U/L Total Protein (6.4-8.2) g/dL Albumin (3.4-5.0) g/dL Globulin (2.6-4.0) g/dL Albumin/Globulin Ratio (0.9-1.6) Urine Color YELLOW Urine Appearance CLEAR Urine pH 5.5 (5.0-8.0) Ur Specific [place] 1.010 (1.001-1.035) Urine Protein NEGATIVE (NEGATIVE) mg/dL Urine Glucose (UA) NEGATIVE (NEGATIVE) mg/dL Urine Ketones NEGATIVE (NEGATIVE) mg/dL Urine Occult Blood NEGATIVE (NEGATIVE) Urine Nitrite NEGATIVE (NEGATIVE) Urine Bilirubin NEGATIVE (NEGATIVE) Urine Urobilinogen 0.2 (<2.0) EU/dL Ur Leukocyte Esterase NEGATIVE (NEGATIVE) 12/15/20 12/15/20 Range/Units 07:28 07:28 WBC 16.27 H (4.0-11.0) K/uL RBC 2.78 L (4.30-5.90) M/uL Hgb 7.7 L (12.0-16.0) g/dL Hct 24.6 L (36.0-46.0) % MCV 88.5 (80.0-98.0) fL MCH 27.7 (27.0-32.0) pg MCHC 31.3 (31.0-37.0) g/dL RDW Std Deviation 52.8 (28.0-62.0) fl RDW Coeff of Sebastien 16 H (11.0-15.0) % Plt Count 350 (150-400) K/uL MPV 9.20 (7.40-12.00) fL Neut % (Auto) 84.9 H (48.0-80.0) % Lymph % (Auto) 7.8 L (16.0-40.0) % [place] % (Auto) 6.0 (0.0-15.0) % Eos % (Auto) 1.2 (0.0-7.0) % Baso % (Auto) 0.1 (0.0-1.5) % Neut # (Auto) 13.8 H (1.4-5.7) K/uL Lymph # (Auto) 1.3 (0.6-2.4) K/uL [place] # (Auto) 1.0 H (0.0-0.8) K/uL Eos # (Auto) 0.2 (0.0-0.7) K/uL Baso # (Auto) 0.0 (0.0-0.1) K/uL Nucleated RBC % 0.3 /100WBC Nucleated RBCs # 0 K/uL INR Sodium 141 (136-145) mmol/L Potassium 3.2 L (3.5-5.1) mmol/L Chloride 104 (98-107) mmol/L Carbon Dioxide 26.9 (21.0-32.0) mmol/L BUN 8 (7.0-18.0) mg/dL Creatinine 0.8 (0.6-1.0) mg/dL Est Cr Clr Drug Dosing 52.72 mL/min Estimated GFR (MDRD) > 60.0 ml/min Glucose 96 (74-106) mg/dL Calcium 8.0 L (8.5-10.1) mg/dL Phosphorus 3.2 (2.6-4.7) mg/dL Magnesium 1.6 L (1.8-2.4) mg/dL Total Bilirubin 0.2 (0.2-1.0) mg/dL AST 20 (15-37) IU/L ALT 22 (14-63) IU/L Alkaline Phosphatase 80 (46-116) U/L Total Protein 5.3 L (6.4-8.2) g/dL Albumin 1.9 L (3.4-5.0) g/dL Globulin 3.4 (2.6-4.0) g/dL Albumin/Globulin Ratio 0.6 L (0.9-1.6) Urine Color Urine Appearance Urine pH (5.0-8.0) Ur Specific [place] (1.001-1.035) Urine Protein (NEGATIVE) mg/dL Urine Glucose (UA) (NEGATIVE) mg/dL Urine Ketones (NEGATIVE) mg/dL Urine Occult Blood (NEGATIVE) Urine Nitrite (NEGATIVE) Urine Bilirubin (NEGATIVE) Urine Urobilinogen (<2.0) EU/dL Ur Leukocyte Esterase (NEGATIVE) Result Diagrams: 12/15/20 07:28 12/15/20 07:28 Brando Results Last 24 hrs: Microbiology 12/09/20 16:13 Aerobic Blood Culture - Final Blood - Venous - Lab Draw NO GROWTH AFTER 5 DAYS Anaerobic Blood Culture - Final NO GROWTH AFTER 5 DAYS 12/09/20 15:37 Aerobic Blood Culture - Final Blood - Venous NO GROWTH AFTER 5 DAYS Anaerobic Blood Culture - Final NO GROWTH AFTER 5 DAYS Sepsis Event Note - Evaluation Sepsis Screening Result: No Definite Risk - Focused Exam Vital Signs: Vital Signs Temp Temp Pulse Pulse Resp BP BP 12/15/20 11:49 97.2 F 80 17 106/60 12/15/20 08:26 98 138/72 12/15/20 07:42 98.6 F 98 17 138/72 12/15/20 04:15 99.2 F 89 18 122/50 L Pulse Ox 12/15/20 11:49 95 12/15/20 08:26 12/15/20 07:42 93 L 12/15/20 04:15 93 L - Problem List & Annotations (1) Rash SNOMED Code(s): 444709376, 364661976 Code(s): R21 - RASH AND OTHER NONSPECIFIC SKIN ERUPTION Status: Acute Current Visit: Yes - Problem List Review Problem List Initiated/Reviewed/Updated: Yes - My Orders Last 24 Hours: My Active Orders 12/14/20 18:00 Phosphorus #1 [Neutra-Phos] 250 mg PO QID 12/16/20 12:00 levoFLOXacin [Levaquin] 750 mg PO Q24H - Plan Plan:: 80-year-old female was admitted for aspiration pneumonia, recently developed skin rash with mild improvement. 1. Rashpossible drug reaction: Significant improvement Continue to monitor 2. Leukocytosis: Improved to 16.3 today, patient remains afebrile, no obvious source of infection, chest examination was unremarkable, patient states that she is feeling better denies any cough, shortness of breath. UA chest x-ray normal 3. Aspiration pneumonia: Improved, remains afebrile, continue to trend WBCs daily CT chest on admission indicated possible infectious process We continue to treat with Levaquin Patient underwent bedside speech and swallow study with normal findings, however it is recommended patient undergo barium swallow study to further investigate possibility of aspiration due to underlying history of Parkinson's disease and recent symptoms. Recommended modified barium speech evaluation. 4. 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 Normocytic anemia: 7.7 today asymptomatic, Hemoccult positive will consider further studies with EGD however patient does confirm that she will not undergo colonoscopy. If hemoglobin levels drop below 7 may consider providing packed red blood cells 2 units. Recent iron studies indicate iron deficiency anemia patient on ferrous sulfate 325 mg twice daily with meals, continue to monitor daily CBC 5. History of CHF: No JVD, lungs clear to auscultation bilaterally, no sacral edema, 1+ pitting lower extremities improved with physical therapy Echo grossly normal with 60 to 65% ejection fraction Resume home dose of Lasix 40 twice daily 6. Hypokalemia/ hypomagnesemia/hypophosphatemia: Replete today and recheck VTE prophylaxis: Coumadin CODE STATUS: DNR/DNI Dispo: 1-2 days and pending placement when medically stable.
--- NOTE | 2020-12-15 13:48 | PCM.SN.2 ---
- Free Text/Narrative Note: Requested to start IV. #22 placed on 1st attempt L wrist.
[2020-12-15] MEDS ORDERED: Warfarin 2.5 MG Tab PO SCH (14:00)
[2020-12-15] MEDS ORDERED: Magnesium Sulfate/Water 2 GM in Premix Bag 1 BAG IV ONE (14:30)
[2020-12-15] MEDS: Furosemide 40 MG Tab PO SCH ×2 (15:14→20:34)
[2020-12-15 17:42] LABS: POTASSIUM,K 3.7 mmol/L (3.5-5.1)
[2020-12-15] MEDS: Potassium Chloride 20 MEQ Tab.ER PO SCH (20:33)
[2020-12-15] MEDS: Rosuvastatin 10 MG Tab PO SCH (20:33)
[2020-12-15] MEDS: rOPINIRole 0.5 MG Tab PO SCH (20:34)
[2020-12-15] MEDS: Primidone 50 MG Tab PO SCH (20:34)
[2020-12-16] MEDS: Phosphorus #1 250 MG Tab PO SCH ×4 (00:14→17:33)
[2020-12-16 06:36] LABS: BLOOD UREA NITROGEN,BUN 9 mg/dL (7.0-18.0); CARBON DIOXIDE,CO2 29.3 mmol/L (21.0-32.0); CHLORIDE,CL 106 mmol/L (98-107); GLUCOSE RANDOM 105 mg/dL (74-106); POTASSIUM,K 3.4 mmol/L (3.5-5.1); SODIUM,NA 144 mmol/L (136-145)
[2020-12-16] MEDS: Ferrous Sulfate 325 MG Tab PO SCH ×2 (09:04→17:33)
[2020-12-16] MEDS: Levothyroxine 100 MCG Tab PO SCH (09:05)
[2020-12-16] MEDS: Gabapentin 300 MG Cap PO SCH ×2 (09:05→20:29)
[2020-12-16] MEDS: Carvedilol 3.125 MG Tab PO SCH ×2 (09:06→20:29)
[2020-12-16] MEDS: Furosemide 40 MG Tab PO SCH ×2 (09:06→20:28)
[2020-12-16] MEDS: Calcium Carbonate 500 MG Tab.Chew PO SCH ×2 (09:07→20:29)
[2020-12-16] MEDS: Cholecalciferol (Vitamin D3) 25 MCG Tab PO SCH (09:07)
[2020-12-16] MEDS: Pantoprazole 40 MG in Sodium Chloride 0.9% 10 ML IV SCH ×2 (09:08→20:29)
[2020-12-16] MEDS: Potassium Chloride 20 MEQ Tab.ER PO SCH ×2 (09:08→20:28)
--- NOTE | 2020-12-16 11:40 | PCM.PN ---
- General Info Date of Service: 12/16/20 - Review of Systems Systems Review Comment:: strength has improved, rash improved, no shortness of breath, no fevers - Patient Data Vitals - Most Recent: Last Vital Signs Temp 36.9 C 12/16/20 09:01 Pulse 90 12/16/20 09:06 Resp 16 12/16/20 09:01 BP 112/62 12/16/20 09:06 Pulse Ox 95 12/16/20 09:01 Weight - Most Recent: 84.141 kg I&O - Last 24 Hours: Intake & Output 12/15/20 12/16/20 12/16/20 22:59 06:59 14:59 Intake Total 1010 600 Output Total 700 2200 Balance 310 -1600 Lab Results Last 24 Hours: Laboratory Results - last 24 hr 12/15/20 12/16/20 12/16/20 Range/Units 17:02 05:38 05:38 WBC 10.75 (4.0-11.0) K/uL RBC 2.92 L (4.30-5.90) M/uL Hgb 8.0 L (12.0-16.0) g/dL Hct 25.7 L (36.0-46.0) % MCV 88.0 (80.0-98.0) fL MCH 27.4 (27.0-32.0) pg MCHC 31.1 (31.0-37.0) g/dL RDW Std Deviation 52.7 (28.0-62.0) fl RDW Coeff of Sebastien 17 H (11.0-15.0) % Plt Count 367 (150-400) K/uL MPV 9.00 (7.40-12.00) fL Neut % (Auto) 77.2 (48.0-80.0) % Lymph % (Auto) 11.5 L (16.0-40.0) % [place] % (Auto) 9.1 (0.0-15.0) % Eos % (Auto) 1.8 (0.0-7.0) % Baso % (Auto) 0.4 (0.0-1.5) % Neut # (Auto) 8.3 H (1.4-5.7) K/uL Lymph # (Auto) 1.2 (0.6-2.4) K/uL [place] # (Auto) 1.0 H (0.0-0.8) K/uL Eos # (Auto) 0.2 (0.0-0.7) K/uL Baso # (Auto) 0.0 (0.0-0.1) K/uL Nucleated RBC % 0.0 /100WBC Nucleated RBCs # 0 K/uL INR Sodium 144 (136-145) mmol/L Potassium 3.7 3.4 L (3.5-5.1) mmol/L Chloride 106 (98-107) mmol/L Carbon Dioxide 29.3 (21.0-32.0) mmol/L BUN 9 (7.0-18.0) mg/dL Creatinine 0.8 (0.6-1.0) mg/dL Est Cr Clr Drug Dosing 52.72 mL/min Estimated GFR (MDRD) > 60.0 ml/min Glucose 105 (74-106) mg/dL Calcium 8.2 L (8.5-10.1) mg/dL Magnesium 1.8 (1.8-2.4) mg/dL Total Bilirubin 0.2 (0.2-1.0) mg/dL AST 21 (15-37) IU/L ALT 20 (14-63) IU/L Alkaline Phosphatase 79 (46-116) U/L Total Protein 5.7 L (6.4-8.2) g/dL Albumin 2.0 L (3.4-5.0) g/dL Globulin 3.7 (2.6-4.0) g/dL Albumin/Globulin Ratio 0.5 L (0.9-1.6) 12/16/20 Range/Units 10:57 WBC (4.0-11.0) K/uL RBC (4.30-5.90) M/uL Hgb (12.0-16.0) g/dL Hct (36.0-46.0) % MCV (80.0-98.0) fL MCH (27.0-32.0) pg MCHC (31.0-37.0) g/dL RDW Std Deviation (28.0-62.0) fl RDW Coeff of Sebastien (11.0-15.0) % Plt Count (150-400) K/uL MPV (7.40-12.00) fL Neut % (Auto) (48.0-80.0) % Lymph % (Auto) (16.0-40.0) % [place] % (Auto) (0.0-15.0) % Eos % (Auto) (0.0-7.0) % Baso % (Auto) (0.0-1.5) % Neut # (Auto) (1.4-5.7) K/uL Lymph # (Auto) (0.6-2.4) K/uL [place] # (Auto) (0.0-0.8) K/uL Eos # (Auto) (0.0-0.7) K/uL Baso # (Auto) (0.0-0.1) K/uL Nucleated RBC % /100WBC Nucleated RBCs # K/uL INR 2.01 Sodium (136-145) mmol/L Potassium (3.5-5.1) mmol/L Chloride (98-107) mmol/L Carbon Dioxide (21.0-32.0) mmol/L BUN (7.0-18.0) mg/dL Creatinine (0.6-1.0) mg/dL Est Cr Clr Drug Dosing mL/min Estimated GFR (MDRD) ml/min Glucose (74-106) mg/dL Calcium (8.5-10.1) mg/dL Magnesium (1.8-2.4) mg/dL Total Bilirubin (0.2-1.0) mg/dL AST (15-37) IU/L ALT (14-63) IU/L Alkaline Phosphatase (46-116) U/L Total Protein (6.4-8.2) g/dL Albumin (3.4-5.0) g/dL Globulin (2.6-4.0) g/dL Albumin/Globulin Ratio (0.9-1.6) Med Orders - Current: Current Medications Acetaminophen (Acetaminophen 500 Mg Tab) 500 mg PO Q4H PRN PRN Reason: Fever Last Admin: 12/10/20 21:31 Dose: 500 mg Documented by: Albuterol/Ipratropium (Albuterol/Ipratropium 3.0-0.5 Mg/3 Ml Neb Soln) 3 ml NEB Q4HRRT PRN PRN Reason: Shortness Of Breath/wheezing Calcium Carbonate/Glycine (Calcium Carbonate 500 Mg Tab.Chew) 500 mg PO BID ON LICENSE OF [facility] Last Admin: 12/16/20 09:07 Dose: 500 mg Documented by: Carvedilol (Carvedilol 3.125 Mg Tab) 3.125 mg PO BID JAZMIN Last Admin: 12/16/20 09:06 Dose: 3.125 mg Documented by: Cholecalciferol (Cholecalciferol (Vitamin D3) 25 Mcg Tab) 25 mcg PO DAILY JAZMIN Last Admin: 12/16/20 09:07 Dose: 25 mcg Documented by: Ferrous Sulfate (Ferrous Sulfate 325 Mg Tab) 325 mg PO BIDMEALS ON LICENSE OF [facility] Last Admin: 12/16/20 09:04 Dose: 325 mg Documented by: Furosemide (Furosemide 40 Mg Tab) 40 mg PO BID ON LICENSE OF [facility] Last Admin: 12/16/20 09:06 Dose: 40 mg Documented by: Gabapentin (Gabapentin 300 Mg Cap) 300 mg PO BID ON LICENSE OF [facility] Last Admin: 12/16/20 09:05 Dose: 300 mg Documented by: Pantoprazole Sodium 40 mg/ (Sodium Chloride) 10 mls @ 300 mls/hr IV BID ON LICENSE OF [facility] Last Admin: 12/16/20 09:08 Dose: 300 mls/hr Documented by: Levofloxacin (Levofloxacin 500 Mg Tab) 750 mg PO Q24H JAZMIN Stop: 12/20/20 12:01 Levothyroxine Sodium (Levothyroxine 100 Mcg Tab) 100 mcg PO DAILY ON LICENSE OF [facility] Last Admin: 12/16/20 09:05 Dose: 100 mcg Documented by: Ondansetron HCl (Ondansetron 4 Mg/2 Ml Sdv) 4 mg IVPUSH Q4H PRN PRN Reason: Nausea/Vomiting Last Admin: 12/11/20 09:56 Dose: 4 mg Documented by: Potassium Chloride (Potassium Chloride 20 Meq Tab.Er) 40 meq PO BID ON LICENSE OF [facility] Last Admin: 12/16/20 09:08 Dose: 40 meq Documented by: Primidone (Primidone 50 Mg Tab) 150 mg PO BEDTIME ON LICENSE OF [facility] Last Admin: 12/15/20 20:34 Dose: 150 mg Documented by: Ropinirole HCl (Ropinirole 0.5 Mg Tab) 0.5 mg PO BEDTIME ON LICENSE OF [facility] Last Admin: 12/15/20 20:34 Dose: 0.5 mg Documented by: Rosuvastatin Calcium (Rosuvastatin 10 Mg Tab) 20 mg PO BEDTIME ON LICENSE OF [facility] Last Admin: 12/15/20 20:33 Dose: 20 mg Documented by: Sodium Chloride (Sodium Chloride 0.9% 10 Ml Syringe) 10 ml FLUSH ASDIRECTED PRN PRN Reason: Keep Vein Open Last Admin: 12/09/20 15:49 Dose: 10 ml Documented by: Sodium Chloride (Sodium Chloride 0.9% 2.5 Ml Syringe) 2.5 ml FLUSH ASDIRECTED PRN PRN Reason: Keep Vein Open Last Admin: 12/09/20 15:49 Dose: 2.5 ml Documented by: Sodium Phosphate (Phosphorus #1 250 Mg Tab) 250 mg PO QID ON LICENSE OF [facility] Last Admin: 12/16/20 06:09 Dose: 250 mg Documented by: Warfarin Sodium (Warfarin Ask Dosing) 1 each PO DAILY@1400 ON LICENSE OF [facility] Last Admin: 12/15/20 14:53 Dose: Not Given Documented by: Warfarin Sodium (Warfarin 5 Mg Tab) 5 mg PO DAILY@1400 ON LICENSE OF [facility] Stop: 12/16/20 15:00 Discontinued Medications Acetaminophen (Acetaminophen 500 Mg Tab) 1,000 mg PO ONETIME ONE Stop: 12/09/20 15:50 Last Admin: 12/09/20 15:55 Dose: 1,000 mg Documented by: Acetaminophen (Acetaminophen 325 Mg Tab) 650 mg PO Q4H PRN PRN Reason: Pain (Mild 1-3)/fever Last Admin: 12/10/20 00:38 Dose: 650 mg Documented by: Alprazolam (Alprazolam 0.5 Mg Tab) 1 mg PO BEDTIME PRN PRN Reason: Anxiety Last Admin: 12/11/20 23:02 Dose: 1 mg Documented by: Azithromycin (Azithromycin 250 Mg Tab) 500 mg PO Q24H ON LICENSE OF [facility] Last Admin: 12/13/20 09:26 Dose: 500 mg Documented by: Diphenhydramine HCl (Diphenhydramine 25 Mg Cap) 25 mg PO ONETIME ONE Stop: 12/13/20 00:34 Last Admin: 12/13/20 00:59 Dose: 25 mg Documented by: Furosemide (Furosemide 40 Mg Tab) 40 mg PO BID ON LICENSE OF [facility] Last Admin: 12/14/20 08:52 Dose: 40 mg Documented by: Hydrocortisone (Hydrocortisone 1% Crm 30 Gm Tube) 0 gm TOP Q4H PRN PRN Reason: Itching Last Admin: 12/14/20 08:58 Dose: 1 each Documented by: Sodium Chloride (Normal Saline) 1,000 mls @ 999 mls/hr IV .Bolus ONE Stop: 12/09/20 16:39 Last Admin: 12/09/20 15:49 Dose: 999 mls/hr Documented by: Sodium Chloride (Normal Saline) 1,000 mls @ 999 mls/hr IV .Bolus ONE Stop: 12/09/20 16:51 Last Admin: 12/09/20 16:43 Dose: 999 mls/hr Documented by: Piperacillin Sod/Tazobactam (Sod 4.5 gm/ Sodium Chloride) 100 mls @ 100 mls/hr IV ONETIME ONE Stop: 12/09/20 19:15 Last Admin: 12/09/20 19:16 Dose: 100 mls/hr Documented by: Vancomycin HCl 2 gm/ Premix 400 mls @ 200 mls/hr IV STAT ONE Stop: 12/09/20 20:15 Last Admin: 12/09/20 21:43 Dose: 200 mls/hr Documented by: Lactated Ringer's (Ringers, Lactated) 1,000 mls @ 125 mls/hr IV ASDIRECTED ON LICENSE OF [facility] Last Admin: 12/11/20 07:09 Dose: 125 mls/hr Documented by: Pantoprazole Sodium 40 mg/ (Sodium Chloride) 10 mls @ 300 mls/hr IV Q24H ON LICENSE OF [facility] Last Admin: 12/10/20 18:31 Dose: 300 mls/hr Documented by: Piperacillin Sod/Tazobactam (Sod 3.375 gm/ Sodium Chloride) 50 mls @ 100 mls/hr IV Q8H ON LICENSE OF [facility] Last Admin: 12/13/20 08:23 Dose: 100 mls/hr Documented by: Vancomycin HCl 1.25 gm/ Sodium (Chloride) 250 mls @ 166.667 mls/hr IV Q24H ON LICENSE OF [facility] Last Admin: 12/10/20 21:36 Dose: 166.667 mls/hr Documented by: Lactated Ringer's (Ringers, Lactated) 500 mls @ 999 mls/hr IV ONETIME ONE Stop: 12/09/20 22:15 Last Admin: 12/09/20 21:53 Dose: 999 mls/hr Documented by: Magnesium Sulfate 2 gm/ Premix 50 mls @ 25 mls/hr IV Q1H ON LICENSE OF [facility] Magnesium Sulfate 2 gm/ Premix 50 mls @ 12.5 mls/hr IV ONETIME ONE Stop: 12/10/20 22:54 Last Admin: 12/10/20 19:45 Dose: 12.5 mls/hr Documented by: Magnesium Sulfate 2 gm/ Premix 50 mls @ 12.5 mls/hr IV ONETIME ONE Stop: 12/12/20 11:48 Last Admin: 12/12/20 10:21 Dose: 12.5 mls/hr Documented by: Iron Sucrose 200 mg/ Sodium (Chloride) 110 mls @ 400 mls/hr IV ONETIME ONE Stop: 12/12/20 14:58 Last Admin: 12/12/20 15:29 Dose: 400 mls/hr Documented by: Levofloxacin/Dextrose 750 mg/ (Premix) 150 mls @ 100 mls/hr IV Q24H ON LICENSE OF [facility] Last Admin: 12/14/20 12:28 Dose: 100 mls/hr Documented by: Potassium Chloride 40 meq/ (Premix) 100 mls @ 25 mls/hr IV ONETIME ONE Stop: 12/13/20 15:57 Last Admin: 12/13/20 14:10 Dose: Not Given Documented by: Magnesium Sulfate 2 gm/ Premix 50 mls @ 12.5 mls/hr IV ONETIME ONE Stop: 12/13/20 16:05 Last Admin: 12/13/20 14:11 Dose: Not Given Documented by: Potassium Chloride 40 meq/ (Premix) 100 mls @ 25 mls/hr IV ONETIME ONE Stop: 12/13/20 17:59 Last Admin: 12/13/20 14:33 Dose: 25 mls/hr Documented by: Magnesium Sulfate 2 gm/ Premix 50 mls @ 12.5 mls/hr IV ONETIME ONE Stop: 12/13/20 21:59 Last Admin: 12/13/20 18:54 Dose: 12.5 mls/hr Documented by: Levofloxacin/Dextrose 750 mg/ (Premix) 150 mls @ 100 mls/hr IV Q24H ON LICENSE OF [facility] Stop: 12/20/20 12:01 Last Admin: 12/15/20 11:51 Dose: 100 mls/hr Documented by: Magnesium Sulfate 2 gm/ Premix 50 mls @ 12.5 mls/hr IV ONETIME ONE Stop: 12/15/20 18:29 Last Admin: 12/15/20 15:14 Dose: 12.5 mls/hr Documented by: Iopamidol (Iopamidol 755 Mg/Ml 500 Ml Multipack Bottle) 100 ml IVPUSH ONETIME ONE Stop: 12/09/20 18:51 Last Admin: 12/09/20 18:50 Dose: 100 ml Documented by: Lidocaine HCl (Lidocaine 1% 20 Ml Mdv) Confirm Administered Dose 20 ml .ROUTE .STK-MED ONE Stop: 12/12/20 18:42 Last Admin: 12/12/20 20:04 Dose: Not Given Documented by: Non-Formulary Medication (Alprazolam [Xanax Xr]) 1 mg PO DAILY PRN PRN Reason: Anxiety Non-Formulary Medication (Calcium Carbonate [Calcium]) 600 mg PO BID ON LICENSE OF [facility] Last Admin: 12/09/20 22:35 Dose: Not Given Documented by: Non-Formulary Medication (Ropinirole) 0.5 mg PO BEDTIME ON LICENSE OF [facility] Last Admin: 12/09/20 22:35 Dose: Not Given Documented by: Non-Formulary Medication (Rosuvastatin Calcium [Rosuvastatin Calcium]) 20 mg PO BEDTIME ON LICENSE OF [facility] Last Admin: 12/09/20 22:35 Dose: Not Given Documented by: Potassium Chloride (Potassium Chloride 10% 20 Meq/15 Ml Soln 15 Ml Ud Cup) 20 meq PO ONETIME ONE Stop: 12/10/20 18:52 Last Admin: 12/11/20 02:11 Dose: Not Given Documented by: Potassium Chloride (Potassium Chloride 20 Meq Tab.Er) 20 meq PO ONETIME ONE Stop: 12/11/20 00:21 Last Admin: 12/11/20 01:10 Dose: 20 meq Documented by: Potassium Chloride (Potassium Chloride 10 Meq Tab.Er) 40 meq PO ONETIME ONE Stop: 12/11/20 14:01 Last Admin: 12/11/20 16:43 Dose: 40 meq Documented by: Potassium Chloride (Potassium Chloride 20 Meq Tab.Er) Confirm Administered Dose 40 meq .ROUTE .STK-MED ONE Stop: 12/11/20 16:09 Last Admin: 12/11/20 16:44 Dose: Not Given Documented by: Potassium Chloride (Potassium Chloride 10 Meq Tab.Er) Confirm Administered Dose 40 meq .ROUTE .STK-MED ONE Stop: 12/11/20 16:44 Last Admin: 12/11/20 17:10 Dose: Not Given Documented by: Potassium Chloride (Potassium Chloride 20 Meq Tab.Er) 40 meq PO ONETIME ONE Stop: 12/12/20 07:50 Last Admin: 12/12/20 09:03 Dose: 40 meq Documented by: Potassium Chloride (Potassium Chloride 20 Meq Tab.Er) 40 meq PO ONETIME ONE Stop: 12/12/20 12:01 Last Admin: 12/12/20 12:57 Dose: 40 meq Documented by: Potassium Chloride (Potassium Chloride 20 Meq Tab.Er) 40 meq PO ONETIME ONE Stop: 12/13/20 11:57 Last Admin: 12/13/20 12:53 Dose: 40 meq Documented by: Vancomycin HCl (Pharmacy To Dose - Vancomycin) 1 dose .XX ASDIRECTED ON LICENSE OF [facility] Warfarin Sodium (Warfarin Ask Dosing) 1 each PO ASDIRECTED ON LICENSE OF [facility] Warfarin Sodium (Warfarin 5 Mg Tab) 5 mg PO 12/11/20@1400 ON LICENSE OF [facility] Stop: 12/11/20 14:01 Last Admin: 12/11/20 16:35 Dose: 5 mg Documented by: Warfarin Sodium (Warfarin 5 Mg Tab) Confirm Administered Dose 5 mg .ROUTE .STK- MED ONE Stop: 12/11/20 16:08 Last Admin: 12/11/20 16:44 Dose: Not Given Documented by: Warfarin Sodium (Warfarin 5 Mg Tab) 5 mg PO 12/12/20@1400 ON LICENSE OF [facility] Stop: 12/12/20 16:00 Last Admin: 12/12/20 13:57 Dose: 5 mg Documented by: Warfarin Sodium (Warfarin 5 Mg Tab) 5 mg PO 12/13/20@1400 ON LICENSE OF [facility] Stop: 12/13/20 14:01 Last Admin: 12/13/20 13:05 Dose: 5 mg Documented by: Warfarin Sodium (Warfarin 2.5 Mg Tab) 2.5 mg PO DAILY@1400 ON LICENSE OF [facility] Stop: 12/14/20 15:00 Last Admin: 12/14/20 13:16 Dose: 2.5 mg Documented by: Warfarin Sodium (Warfarin 2.5 Mg Tab) 2.5 mg PO DAILY@1400 ON LICENSE OF [facility] Stop: 12/15/20 15:00 Last Admin: 12/15/20 14:18 Dose: 2.5 mg Documented by: Zinc Acetate/Diphenhydramine (Diphenhydramine/Zinc Acetate 1% Crm 28.3 Gm Tube) 0 gm TOP Q4H PRN PRN Reason: Itching - Exam Urinary Catheter Total Time: 2 General: Alert, Oriented HEENT: Pupils Equal Neck: Supple Lungs: Clear to Auscultation, Normal Respiratory Effort GI/Abdominal Exam: Soft, Non-Tender, No Distention Extremities: Non-Tender, No Pedal Edema Skin: Warm, Dry, Intact Neurological: No New Focal Deficit - Patient Data Lab Results Last 24 hrs: Laboratory Results - last 24 hr 12/15/20 12/16/20 12/16/20 Range/Units 17:02 05:38 05:38 WBC 10.75 (4.0-11.0) K/uL RBC 2.92 L (4.30-5.90) M/uL Hgb 8.0 L (12.0-16.0) g/dL Hct 25.7 L (36.0-46.0) % MCV 88.0 (80.0-98.0) fL MCH 27.4 (27.0-32.0) pg MCHC 31.1 (31.0-37.0) g/dL RDW Std Deviation 52.7 (28.0-62.0) fl RDW Coeff of Sebastien 17 H (11.0-15.0) % Plt Count 367 (150-400) K/uL MPV 9.00 (7.40-12.00) fL Neut % (Auto) 77.2 (48.0-80.0) % Lymph % (Auto) 11.5 L (16.0-40.0) % [place] % (Auto) 9.1 (0.0-15.0) % Eos % (Auto) 1.8 (0.0-7.0) % Baso % (Auto) 0.4 (0.0-1.5) % Neut # (Auto) 8.3 H (1.4-5.7) K/uL Lymph # (Auto) 1.2 (0.6-2.4) K/uL [place] # (Auto) 1.0 H (0.0-0.8) K/uL Eos # (Auto) 0.2 (0.0-0.7) K/uL Baso # (Auto) 0.0 (0.0-0.1) K/uL Nucleated RBC % 0.0 /100WBC Nucleated RBCs # 0 K/uL INR Sodium 144 (136-145) mmol/L Potassium 3.7 3.4 L (3.5-5.1) mmol/L Chloride 106 (98-107) mmol/L Carbon Dioxide 29.3 (21.0-32.0) mmol/L BUN 9 (7.0-18.0) mg/dL Creatinine 0.8 (0.6-1.0) mg/dL Est Cr Clr Drug Dosing 52.72 mL/min Estimated GFR (MDRD) > 60.0 ml/min Glucose 105 (74-106) mg/dL Calcium 8.2 L (8.5-10.1) mg/dL Magnesium 1.8 (1.8-2.4) mg/dL Total Bilirubin 0.2 (0.2-1.0) mg/dL AST 21 (15-37) IU/L ALT 20 (14-63) IU/L Alkaline Phosphatase 79 (46-116) U/L Total Protein 5.7 L (6.4-8.2) g/dL Albumin 2.0 L (3.4-5.0) g/dL Globulin 3.7 (2.6-4.0) g/dL Albumin/Globulin Ratio 0.5 L (0.9-1.6) 12/16/20 Range/Units 10:57 WBC (4.0-11.0) K/uL RBC (4.30-5.90) M/uL Hgb (12.0-16.0) g/dL Hct (36.0-46.0) % MCV (80.0-98.0) fL MCH (27.0-32.0) pg MCHC (31.0-37.0) g/dL RDW Std Deviation (28.0-62.0) fl RDW Coeff of Sebastien (11.0-15.0) % Plt Count (150-400) K/uL MPV (7.40-12.00) fL Neut % (Auto) (48.0-80.0) % Lymph % (Auto) (16.0-40.0) % [place] % (Auto) (0.0-15.0) % Eos % (Auto) (0.0-7.0) % Baso % (Auto) (0.0-1.5) % Neut # (Auto) (1.4-5.7) K/uL Lymph # (Auto) (0.6-2.4) K/uL [place] # (Auto) (0.0-0.8) K/uL Eos # (Auto) (0.0-0.7) K/uL Baso # (Auto) (0.0-0.1) K/uL Nucleated RBC % /100WBC Nucleated RBCs # K/uL INR 2.01 Sodium (136-145) mmol/L Potassium (3.5-5.1) mmol/L Chloride (98-107) mmol/L Carbon Dioxide (21.0-32.0) mmol/L BUN (7.0-18.0) mg/dL Creatinine (0.6-1.0) mg/dL Est Cr Clr Drug Dosing mL/min Estimated GFR (MDRD) ml/min Glucose (74-106) mg/dL Calcium (8.5-10.1) mg/dL Magnesium (1.8-2.4) mg/dL Total Bilirubin (0.2-1.0) mg/dL AST (15-37) IU/L ALT (14-63) IU/L Alkaline Phosphatase (46-116) U/L Total Protein (6.4-8.2) g/dL Albumin (3.4-5.0) g/dL Globulin (2.6-4.0) g/dL Albumin/Globulin Ratio (0.9-1.6) Result Diagrams: 12/16/20 05:38 12/16/20 05:38 Sepsis Event Note - Evaluation Sepsis Screening Result: No Definite Risk - Focused Exam Vital Signs: Vital Signs Temp Pulse Pulse Resp BP BP Pulse Ox 12/16/20 09:06 90 112/62 12/16/20 09:01 36.9 C 90 16 112/62 95 12/16/20 04:26 36.9 C 86 19 111/56 L 94 L 12/16/20 00:13 36.1 C 85 19 122/57 L 96 - Problem List Review Problem List Initiated/Reviewed/Updated: Yes - My Orders Last 24 Hours: My Active Orders 12/16/20 05:38 MAGNESIUM [CHEM] AM PHOSPHORUS [CHEM] AM 12/17/20 05:11 CBC WITH AUTO DIFF [HEME] AM COMPREHENSIVE METABOLIC PN,CMP [CHEM] AM MAGNESIUM [CHEM] AM PHOSPHORUS [CHEM] AM - Plan Plan:: 80-year-old female was admitted for aspiration pneumonia, Pneumonia: leukocytosis resolving, continue PO levaquin Rash: likely heat rash, resolving Hx of CHF: continue lasix Hx of DVTs: continue coumadin dispo: pending placement at SNF
[2020-12-16] MEDS: Levofloxacin 500 MG Tab PO SCH (13:06)
[2020-12-16] MEDS ORDERED: Warfarin 5 MG Tab PO SCH (14:00)
[2020-12-16] MEDS: rOPINIRole 0.5 MG Tab PO SCH (20:27)
[2020-12-16] MEDS: Primidone 50 MG Tab PO SCH (20:28)
[2020-12-16] MEDS: Rosuvastatin 10 MG Tab PO SCH (20:28)
[2020-12-17] MEDS: Phosphorus #1 250 MG Tab PO SCH ×4 (00:40→17:32)
[2020-12-17 05:59] LABS: CARBON DIOXIDE,CO2 30.4 mmol/L (21.0-32.0); POTASSIUM,K 3.8 mmol/L (3.5-5.1)
[2020-12-17] MEDS: Ferrous Sulfate 325 MG Tab PO SCH ×2 (08:31→16:36)
[2020-12-17] MEDS: Carvedilol 3.125 MG Tab PO SCH ×2 (08:36→20:47)
[2020-12-17] MEDS: Cholecalciferol (Vitamin D3) 25 MCG Tab PO SCH (08:36)
[2020-12-17] MEDS: Levothyroxine 100 MCG Tab PO SCH (08:36)
[2020-12-17] MEDS: Furosemide 40 MG Tab PO SCH ×2 (08:36→20:47)
[2020-12-17] MEDS: Pantoprazole 40 MG in Sodium Chloride 0.9% 10 ML IV SCH ×2 (08:37→20:41)
[2020-12-17] MEDS: Calcium Carbonate 500 MG Tab.Chew PO SCH ×2 (08:37→20:47)
[2020-12-17] MEDS: Potassium Chloride 20 MEQ Tab.ER PO SCH ×2 (08:37→20:47)
[2020-12-17] MEDS: Gabapentin 300 MG Cap PO SCH ×2 (08:37→20:47)
--- NOTE | 2020-12-17 09:36 | PCM.DCSUM1 ---
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 Patient states that she went to use restroom today to urinate and after urination when she tried to get back up she felt very weak and she had to sit back down on the commode, she called out to her family member who was able to help her to get to the living room upon getting the living room she started feeling extremely short of breath states that she could not catch her breath. Her [id number] administered some breathing treatments with minimal relief. Patient was found to be hypoxic reportedly in 70s. Patient was also noticed to have elevated heart rate as well. EMS was called to take the patient to the hospital., Denies any associated chest pain, palpitations, abdominal pain, nausea, vomiting, syncope, presyncope, vision changes, urinary or fecal incontinence. Patient states that she did feel a little flushed and warm while she was in the bathroom but denies feeling any chills. Patient states that she feels " cold" all the time and that it is not a new feeling for her. Of note patient was recently mated to the hospital after weakness and fall in the setting of UTI (diagnosed from previous ER visit). At that time patient imaging was unremarkable. She was noted to have a temperature of 102 F and a septic work-up was initiated. She has had lactic acidosis to 4.7. Urine cultures which were obtained from the prior ER visit suggested Aerococcus viridans/Enterococcus. Patient was admitted to the ICU and treated with Zosyn, vancomycin, IV fluids. Patient stayed in the hospital for a few days and then was discharged with Keflex. Patient currently denies any complaints other than pain in her right shoulder and right wrist from her fall last week which were not imaged in the emergency department. Currently denies shortness of breath, cough, chest pain, abdominal pain, nausea, vomiting, dysuria. In the ER patient was found to be febrile as well as tachycardic so septic work-up was initiated patient was started on IV fluids and IV antibiotics were ordered blood cultures were ordered UA was nonsignificant for UTI. CTA chest was ordered as well in setting of hypoxia and tachycardia which ruled out pulmonary embolism. Lab work revealed no leukocytosis but patient had an elevated lactate of 7. Patient was admitted to the hospital for further management Brief History: Treated for aspiration pneumonia, developed a rash possibly secondary to drug reaction which has resolved. Patient was maintained on daily INRs with Coumadin ask protocol. Continued on home dose of Lasix for CHF, recent echo indicated EF of 60 to 65%. Diagnosis: Stroke: No - Discharge Data Discharge Date: 12/18/20 (Did not discharge yesterday, therefore will be discharging home today with home health agency services) Discharge Disposition: Home, W Home Health Agency 06 Condition: Stable - Referral to Home Health Date of Face to Face Encounter: 12/18/20 Reason for Homebound Status: Patient is unsteady when walking and a fall risk, will need to use a walker or cane to ambulate safely. Primary Care Physician: PCP None Skilled Need: Physical therapy: Strengthening due to weakness from recent hospitalization, deconditioning and gait instability and high fall risk - Discharge Diagnosis/Problem(s) (1) Rash SNOMED Code(s): 045633384, [id number] ICD Code: R21 - RASH AND OTHER NONSPECIFIC SKIN ERUPTION Status: Acute - Patient Summary/Data Consults: Consultations 12/10/20 10:19 Consult to Speech Language Pathology [CAPACITY MANAGEMENT SPECIALIST Evaluation and Treatment] [CONS] Routine 12/11/20 09:58 Consult to Physical Therapy [PT Evaluation and Treatment] [CONS] Routine - Patient Instructions Diet: Heart Healthy Diet Activity: As Tolerated Driving: Do Not Drive Showering/Bathing: May Shower Notify Provider of: Fever, Increased Pain, Swelling and Redness Other/Special Instructions: Please return to hospital in the event that your symptoms resume, you develop any shortness of breath, fevers, chest pain, noted any blood in your vomit or stools, experience significant fatigue, feel palpitations. Patient will require close follow-up with her PCP, check INR and potassium levels next 3 days or any possible dose adjustments are her warfarin or potassium chloride. Patient will require PT OT to evaluate and treat. - Discharge Plan *PRESCRIPTION DRUG MONITORING PROGRAM REVIEWED*: Not Applicable *COPY OF PRESCRIPTION DRUG MONITORING REPORT IN PATIENT SARAH: Not Applicable Prescriptions/Med Rec: Ferrous Sulfate 325 mg PO BIDMEALS #30 tablet Furosemide [Lasix] 40 mg PO BID 30 Days tablet Home Medications: Home Meds ALPRAZolam [Xanax XR] 1 mg PO DAILY PRN 10/19/17 [History] Calcium Carbonate [Calcium] 600 mg PO BID 10/19/17 [History] Cholecalciferol (Vitamin D3) [Vitamin D] 1,000 unit PO DAILY 10/19/17 [History] Furosemide 40 mg PO BID 10/19/17 [History] Levothyroxine [Synthroid] 100 mcg PO ACBREAKFAST 10/19/17 [History] Primidone 150 mg PO BEDTIME 10/19/17 [History] Warfarin [Coumadin] 5 mg PO SUTUTHSA 10/19/17 [History] carvediloL [Carvedilol] 3.125 mg PO BID 10/19/17 [History] Gabapentin [Neurontin] 300 mg PO BID 08/29/19 [History] Potassium Chloride [Klor-Con M20] 20 meq PO BID 08/30/19 [History] rOPINIRole [Requip] 0.5 mg PO BEDTIME 08/30/19 [History] Rosuvastatin Calcium 20 mg PO BEDTIME 12/05/20 [History] traMADol [Ultram] 50 mg PO TID PRN 12/05/20 [History] Warfarin [Coumadin] 2.5 mg PO MOWEFR 12/06/20 [History] Acetaminophen [Tylenol Extra Strength] 500 mg PO Q4H PRN tablet 12/08/20 [Rx] cephALEXin [Keflex] 250 mg PO Q6H 4 Days #16 cap 12/08/20 [Rx] Ferrous Sulfate 325 mg PO BIDMEALS #30 tablet 12/17/20 [Rx] Furosemide [Lasix] 40 mg PO BID 30 Days tablet 12/17/20 [Rx] Potassium Chloride [Klor-Con M20] 40 meq PO BID tab.er 12/17/20 [Rx] Warfarin Dosing [Coumadin Ask] 1 each PO DAILY@1400 tablet 12/17/20 [Rx] Warfarin [Coumadin] 2.5 mg PO DAILY@1400 tablet 12/17/20 [Rx] Oxygen Therapy Mode: Room Air Patient Handouts: Hypoxia, Sepsis, Diagnosis, Adult Referrals: Kp Garcia MD [Physician] - 12/25/20 10:30 am - Discharge Summary/Plan Comment DC Time >30 min.: Yes Discharge Summary/Plan Comment: Patient was not discharged yesterday, therefore will be discharging today on December 19, 2019. Post discharge patient is to follow-up with her PCP closely to have INRs and potassium levels drawn in the next 3 days to 5 days in case of needing to adjust possible warfarin and potassium doses. Patient will be discharging home with home health services to help with patient's ADLs as she is unsteady on her feet as well as will require physical therapy. Patient has been started on supplemental iron for iron deficiency anemia, no obvious source was found. In the event she were to develop black stools or blood in your stools please discontinue warfarin therapy immediately, and contact your PCP immediately. It is recommended to also have an EGD and colonoscopy to further evaluate for any source of bleed. This was discussed with patient and family prior to discharge, both stated understanding. Furthermore, please return to hospital in the event your symptoms resume or worsened in the event you develop any fever, shortness of breath, lightheadedness, syncope, presyncope, did not find any source of bleed through trauma or bowel movements. - Patient Data Vitals - Most Recent: Last Vital Signs Temp 98 F 12/17/20 08:00 Pulse 78 12/17/20 08:36 Resp 16 12/17/20 08:00 BP 120/61 12/17/20 08:36 Pulse Ox 95 12/17/20 08:00 Weight - Most Recent: 91.716 kg I&O - Last 24 hours: Intake & Output 12/16/20 12/17/20 12/17/20 22:59 06:59 14:59 Intake Total 1675 900 Output Total 650 1400 Balance 1025 -500 Lab Results - Last 24 hrs: Laboratory Results - last 24 hr 12/16/20 12/16/20 12/17/20 Range/Units 05:38 10:57 05:20 WBC 9.29 (4.0-11.0) K/uL RBC 2.93 L (4.30-5.90) M/uL Hgb 7.9 L (12.0-16.0) g/dL Hct 26.2 L (36.0-46.0) % MCV 89.4 (80.0-98.0) fL MCH 27.0 (27.0-32.0) pg MCHC 30.2 L (31.0-37.0) g/dL RDW Std Deviation 55.1 (28.0-62.0) fl RDW Coeff of Sebastien 17 H (11.0-15.0) % Plt Count 379 (150-400) K/uL MPV 9.20 (7.40-12.00) fL Add Manual Diff YES Neutrophils % (Manual) 67 (48.0-80.0) % Band Neutrophils % 8 % Lymphocytes % (Manual) 21 (16.0-40.0) % Monocytes % (Manual) 1 (0.0-15.0) % Eosinophils % (Manual) 2 (0.0-7.0) % Basophils % (Manual) 1 (0.0-1.5) % Nucleated RBC % 0.2 /100WBC Absolute Seg Neuts 6.2 H (1.4-5.7) Band Neutrophils # 0.7 Lymphocytes # (Manual) 2.0 (0.6-2.4) Monocytes # (Manual) 0.1 (0.0-0.8) Eosinophils # (Manual) 0.2 (0.0-0.7) Basophils # (Manual) 0.1 (0.0-0.1) Nucleated RBCs # 0 K/uL INR 2.01 Sodium (136-145) mmol/L Potassium (3.5-5.1) mmol/L Chloride (98-107) mmol/L Carbon Dioxide (21.0-32.0) mmol/L BUN (7.0-18.0) mg/dL Creatinine (0.6-1.0) mg/dL Est Cr Clr Drug Dosing mL/min Estimated GFR (MDRD) ml/min Glucose (74-106) mg/dL Calcium (8.5-10.1) mg/dL Phosphorus 3.9 (2.6-4.7) mg/dL Magnesium 1.9 (1.8-2.4) mg/dL Total Bilirubin (0.2-1.0) mg/dL AST (15-37) IU/L ALT (14-63) IU/L Alkaline Phosphatase (46-116) U/L Total Protein (6.4-8.2) g/dL Albumin (3.4-5.0) g/dL Globulin (2.6-4.0) g/dL Albumin/Globulin Ratio (0.9-1.6) 12/17/20 12/17/20 Range/Units 05:20 05:20 WBC (4.0-11.0) K/uL RBC (4.30-5.90) M/uL Hgb (12.0-16.0) g/dL Hct (36.0-46.0) % MCV (80.0-98.0) fL MCH (27.0-32.0) pg MCHC (31.0-37.0) g/dL RDW Std Deviation (28.0-62.0) fl RDW Coeff of Sebastien (11.0-15.0) % Plt Count (150-400) K/uL MPV (7.40-12.00) fL Add Manual Diff Neutrophils % (Manual) (48.0-80.0) % Band Neutrophils % % Lymphocytes % (Manual) (16.0-40.0) % Monocytes % (Manual) (0.0-15.0) % Eosinophils % (Manual) (0.0-7.0) % Basophils % (Manual) (0.0-1.5) % Nucleated RBC % /100WBC Absolute Seg Neuts (1.4-5.7) Band Neutrophils # Lymphocytes # (Manual) (0.6-2.4) Monocytes # (Manual) (0.0-0.8) Eosinophils # (Manual) (0.0-0.7) Basophils # (Manual) (0.0-0.1) Nucleated RBCs # K/uL INR 2.12 Sodium 143 (136-145) mmol/L Potassium 3.8 (3.5-5.1) mmol/L Chloride 106 (98-107) mmol/L Carbon Dioxide 30.4 (21.0-32.0) mmol/L BUN 7 (7.0-18.0) mg/dL Creatinine 1.0 (0.6-1.0) mg/dL Est Cr Clr Drug Dosing 42.18 mL/min Estimated GFR (MDRD) 53.1 ml/min Glucose 103 (74-106) mg/dL Calcium 8.2 L (8.5-10.1) mg/dL Phosphorus 3.7 (2.6-4.7) mg/dL Magnesium 1.6 L (1.8-2.4) mg/dL Total Bilirubin 0.2 (0.2-1.0) mg/dL AST 22 (15-37) IU/L ALT 22 (14-63) IU/L Alkaline Phosphatase 97 (46-116) U/L Total Protein 5.7 L (6.4-8.2) g/dL Albumin 2.0 L (3.4-5.0) g/dL Globulin 3.7 (2.6-4.0) g/dL Albumin/Globulin Ratio 0.5 L (0.9-1.6) Med Orders - Current: Current Medications Acetaminophen (Acetaminophen 500 Mg Tab) 500 mg PO Q4H PRN PRN Reason: Fever Last Admin: 12/10/20 21:31 Dose: 500 mg Documented by: Albuterol/Ipratropium (Albuterol/Ipratropium 3.0-0.5 Mg/3 Ml Neb Soln) 3 ml NEB Q4HRRT PRN PRN Reason: Shortness Of Breath/wheezing Calcium Carbonate/Glycine (Calcium Carbonate 500 Mg Tab.Chew) 500 mg PO BID [facility] Last Admin: 12/17/20 08:37 Dose: 500 mg Documented by: Carvedilol (Carvedilol 3.125 Mg Tab) 3.125 mg PO BID [facility] Last Admin: 12/17/20 08:36 Dose: 3.125 mg Documented by: Cholecalciferol (Cholecalciferol (Vitamin D3) 25 Mcg Tab) 25 mcg PO DAILY [facility] Last Admin: 12/17/20 08:36 Dose: 25 mcg Documented by: Ferrous Sulfate (Ferrous Sulfate 325 Mg Tab) 325 mg PO BIDMEALS [facility] Last Admin: 12/17/20 08:31 Dose: 325 mg Documented by: Furosemide (Furosemide 40 Mg Tab) 40 mg PO BID [facility] Last Admin: 12/17/20 08:36 Dose: 40 mg Documented by: Gabapentin (Gabapentin 300 Mg Cap) 300 mg PO BID [facility] Last Admin: 12/17/20 08:37 Dose: 300 mg Documented by: Pantoprazole Sodium 40 mg/ (Sodium Chloride) 10 mls @ 300 mls/hr IV BID [facility] Last Admin: 12/17/20 08:37 Dose: 300 mls/hr Documented by: Levofloxacin (Levofloxacin 500 Mg Tab) 750 mg PO Q24H [facility] Stop: 12/20/20 12:01 Last Admin: 12/16/20 13:06 Dose: 750 mg Documented by: Levothyroxine Sodium (Levothyroxine 100 Mcg Tab) 100 mcg PO DAILY [facility] Last Admin: 12/17/20 08:36 Dose: 100 mcg Documented by: Ondansetron HCl (Ondansetron 4 Mg/2 Ml Sdv) 4 mg IVPUSH Q4H PRN PRN Reason: Nausea/Vomiting Last Admin: 12/11/20 09:56 Dose: 4 mg Documented by: Potassium Chloride (Potassium Chloride 20 Meq Tab.Er) 40 meq PO BID [facility] Last Admin: 12/17/20 08:37 Dose: 40 meq Documented by: Primidone (Primidone 50 Mg Tab) 150 mg PO BEDTIME [facility] Last Admin: 12/16/20 20:28 Dose: 150 mg Documented by: Ropinirole HCl (Ropinirole 0.5 Mg Tab) 0.5 mg PO BEDTIME [facility] Last Admin: 12/16/20 20:27 Dose: 0.5 mg Documented by: Rosuvastatin Calcium (Rosuvastatin 10 Mg Tab) 20 mg PO BEDTIME [facility] Last Admin: 12/16/20 20:28 Dose: 20 mg Documented by: Sodium Chloride (Sodium Chloride 0.9% 10 Ml Syringe) 10 ml FLUSH ASDIRECTED PRN PRN Reason: Keep Vein Open Last Admin: 12/09/20 15:49 Dose: 10 ml Documented by: Sodium Chloride (Sodium Chloride 0.9% 2.5 Ml Syringe) 2.5 ml FLUSH ASDIRECTED PRN PRN Reason: Keep Vein Open Last Admin: 12/09/20 15:49 Dose: 2.5 ml Documented by: Sodium Phosphate (Phosphorus #1 250 Mg Tab) 250 mg PO QID [facility] Last Admin: 12/17/20 05:23 Dose: 250 mg Documented by: Warfarin Sodium (Warfarin Ask Dosing) 1 each PO DAILY@1400 [facility] Last Admin: 12/16/20 13:08 Dose: Not Given Documented by: Warfarin Sodium (Warfarin 2.5 Mg Tab) 2.5 mg PO DAILY@1400 [facility] Stop: 12/17/20 15:00 Discontinued Medications Acetaminophen (Acetaminophen 500 Mg Tab) 1,000 mg PO ONETIME ONE Stop: 12/09/20 15:50 Last Admin: 12/09/20 15:55 Dose: 1,000 mg Documented by: Acetaminophen (Acetaminophen 325 Mg Tab) 650 mg PO Q4H PRN PRN Reason: Pain (Mild 1-3)/fever Last Admin: 12/10/20 00:38 Dose: 650 mg Documented by: Alprazolam (Alprazolam 0.5 Mg Tab) 1 mg PO BEDTIME PRN PRN Reason: Anxiety Last Admin: 12/11/20 23:02 Dose: 1 mg Documented by: Azithromycin (Azithromycin 250 Mg Tab) 500 mg PO Q24H [facility] Last Admin: 12/13/20 09:26 Dose: 500 mg Documented by: Diphenhydramine HCl (Diphenhydramine 25 Mg Cap) 25 mg PO ONETIME ONE Stop: 12/13/20 00:34 Last Admin: 12/13/20 00:59 Dose: 25 mg Documented by: Furosemide (Furosemide 40 Mg Tab) 40 mg PO BID [facility] Last Admin: 12/14/20 08:52 Dose: 40 mg Documented by: Hydrocortisone (Hydrocortisone 1% Crm 30 Gm Tube) 0 gm TOP Q4H PRN PRN Reason: Itching Last Admin: 12/14/20 08:58 Dose: 1 each Documented by: Sodium Chloride (Normal Saline) 1,000 mls @ 999 mls/hr IV .Bolus ONE Stop: 12/09/20 16:39 Last Admin: 12/09/20 15:49 Dose: 999 mls/hr Documented by: Sodium Chloride (Normal Saline) 1,000 mls @ 999 mls/hr IV .Bolus ONE Stop: 12/09/20 16:51 Last Admin: 12/09/20 16:43 Dose: 999 mls/hr Documented by: Piperacillin Sod/Tazobactam (Sod 4.5 gm/ Sodium Chloride) 100 mls @ 100 mls/hr IV ONETIME ONE Stop: 12/09/20 19:15 Last Admin: 12/09/20 19:16 Dose: 100 mls/hr Documented by: Vancomycin HCl 2 gm/ Premix 400 mls @ 200 mls/hr IV STAT ONE Stop: 12/09/20 20:15 Last Admin: 12/09/20 21:43 Dose: 200 mls/hr Documented by: Lactated Ringer's (Ringers, Lactated) 1,000 mls @ 125 mls/hr IV ASDIRECTED [facility] Last Admin: 12/11/20 07:09 Dose: 125 mls/hr Documented by: Pantoprazole Sodium 40 mg/ (Sodium Chloride) 10 mls @ 300 mls/hr IV Q24H [facility] Last Admin: 12/10/20 18:31 Dose: 300 mls/hr Documented by: Piperacillin Sod/Tazobactam (Sod 3.375 gm/ Sodium Chloride) 50 mls @ 100 mls/hr IV Q8H [facility] Last Admin: 12/13/20 08:23 Dose: 100 mls/hr Documented by: Vancomycin HCl 1.25 gm/ Sodium (Chloride) 250 mls @ 166.667 mls/hr IV Q24H [facility] Last Admin: 12/10/20 21:36 Dose: 166.667 mls/hr Documented by: Lactated Ringer's (Ringers, Lactated) 500 mls @ 999 mls/hr IV ONETIME ONE Stop: 12/09/20 22:15 Last Admin: 12/09/20 21:53 Dose: 999 mls/hr Documented by: Magnesium Sulfate 2 gm/ Premix 50 mls @ 25 mls/hr IV Q1H [facility] Magnesium Sulfate 2 gm/ Premix 50 mls @ 12.5 mls/hr IV ONETIME ONE Stop: 12/10/20 22:54 Last Admin: 12/10/20 19:45 Dose: 12.5 mls/hr Documented by: Magnesium Sulfate 2 gm/ Premix 50 mls @ 12.5 mls/hr IV ONETIME ONE Stop: 12/12/20 11:48 Last Admin: 12/12/20 10:21 Dose: 12.5 mls/hr Documented by: Iron Sucrose 200 mg/ Sodium (Chloride) 110 mls @ 400 mls/hr IV ONETIME ONE Stop: 12/12/20 14:58 Last Admin: 12/12/20 15:29 Dose: 400 mls/hr Documented by: Levofloxacin/Dextrose 750 mg/ (Premix) 150 mls @ 100 mls/hr IV Q24H [facility] Last Admin: 12/14/20 12:28 Dose: 100 mls/hr Documented by: Potassium Chloride 40 meq/ (Premix) 100 mls @ 25 mls/hr IV ONETIME ONE Stop: 12/13/20 15:57 Last Admin: 12/13/20 14:10 Dose: Not Given Documented by: Magnesium Sulfate 2 gm/ Premix 50 mls @ 12.5 mls/hr IV ONETIME ONE Stop: 12/13/20 16:05 Last Admin: 12/13/20 14:11 Dose: Not Given Documented by: Potassium Chloride 40 meq/ (Premix) 100 mls @ 25 mls/hr IV ONETIME ONE Stop: 12/13/20 17:59 Last Admin: 12/13/20 14:33 Dose: 25 mls/hr Documented by: Magnesium Sulfate 2 gm/ Premix 50 mls @ 12.5 mls/hr IV ONETIME ONE Stop: 12/13/20 21:59 Last Admin: 12/13/20 18:54 Dose: 12.5 mls/hr Documented by: Levofloxacin/Dextrose 750 mg/ (Premix) 150 mls @ 100 mls/hr IV Q24H [facility] Stop: 12/20/20 12:01 Last Admin: 12/15/20 11:51 Dose: 100 mls/hr Documented by: Magnesium Sulfate 2 gm/ Premix 50 mls @ 12.5 mls/hr IV ONETIME ONE Stop: 12/15/20 18:29 Last Admin: 12/15/20 15:14 Dose: 12.5 mls/hr Documented by: Iopamidol (Iopamidol 755 Mg/Ml 500 Ml Multipack Bottle) 100 ml IVPUSH ONETIME ONE Stop: 12/09/20 18:51 Last Admin: 12/09/20 18:50 Dose: 100 ml Documented by: Lidocaine HCl (Lidocaine 1% 20 Ml Mdv) Confirm Administered Dose 20 ml .ROUTE .STK-MED ONE Stop: 12/12/20 18:42 Last Admin: 12/12/20 20:04 Dose: Not Given Documented by: Non-Formulary Medication (Alprazolam [Xanax Xr]) 1 mg PO DAILY PRN PRN Reason: Anxiety Non-Formulary Medication (Calcium Carbonate [Calcium]) 600 mg PO BID [facility] Last Admin: 12/09/20 22:35 Dose: Not Given Documented by: Non-Formulary Medication (Ropinirole) 0.5 mg PO BEDTIME [facility] Last Admin: 12/09/20 22:35 Dose: Not Given Documented by: Non-Formulary Medication (Rosuvastatin Calcium [Rosuvastatin Calcium]) 20 mg PO BEDTIME [facility] Last Admin: 12/09/20 22:35 Dose: Not Given Documented by: Potassium Chloride (Potassium Chloride 10% 20 Meq/15 Ml Soln 15 Ml Ud Cup) 20 meq PO ONETIME ONE Stop: 12/10/20 18:52 Last Admin: 12/11/20 02:11 Dose: Not Given Documented by: Potassium Chloride (Potassium Chloride 20 Meq Tab.Er) 20 meq PO ONETIME ONE Stop: 12/11/20 00:21 Last Admin: 12/11/20 01:10 Dose: 20 meq Documented by: Potassium Chloride (Potassium Chloride 10 Meq Tab.Er) 40 meq PO ONETIME ONE Stop: 12/11/20 14:01 Last Admin: 12/11/20 16:43 Dose: 40 meq Documented by: Potassium Chloride (Potassium Chloride 20 Meq Tab.Er) Confirm Administered Dose 40 meq .ROUTE .STK-MED ONE Stop: 12/11/20 16:09 Last Admin: 12/11/20 16:44 Dose: Not Given Documented by: Potassium Chloride (Potassium Chloride 10 Meq Tab.Er) Confirm Administered Dose 40 meq .ROUTE .STK-MED ONE Stop: 12/11/20 16:44 Last Admin: 12/11/20 17:10 Dose: Not Given Documented by: Potassium Chloride (Potassium Chloride 20 Meq Tab.Er) 40 meq PO ONETIME ONE Stop: 12/12/20 07:50 Last Admin: 12/12/20 09:03 Dose: 40 meq Documented by: Potassium Chloride (Potassium Chloride 20 Meq Tab.Er) 40 meq PO ONETIME ONE Stop: 12/12/20 12:01 Last Admin: 12/12/20 12:57 Dose: 40 meq Documented by: Potassium Chloride (Potassium Chloride 20 Meq Tab.Er) 40 meq PO ONETIME ONE Stop: 12/13/20 11:57 Last Admin: 12/13/20 12:53 Dose: 40 meq Documented by: Vancomycin HCl (Pharmacy To Dose - Vancomycin) 1 dose .XX ASDIRECTED [facility] Warfarin Sodium (Warfarin Ask Dosing) 1 each PO ASDIRECTED [facility] Warfarin Sodium (Warfarin 5 Mg Tab) 5 mg PO 12/11/20@1400 [facility] Stop: 12/11/20 14:01 Last Admin: 12/11/20 16:35 Dose: 5 mg Documented by: Warfarin Sodium (Warfarin 5 Mg Tab) Confirm Administered Dose 5 mg .ROUTE .STK- MED ONE Stop: 12/11/20 16:08 Last Admin: 12/11/20 16:44 Dose: Not Given Documented by: Warfarin Sodium (Warfarin 5 Mg Tab) 5 mg PO 12/12/20@1400 [facility] Stop: 12/12/20 16:00 Last Admin: 12/12/20 13:57 Dose: 5 mg Documented by: Warfarin Sodium (Warfarin 5 Mg Tab) 5 mg PO 12/13/20@1400 [facility] Stop: 12/13/20 14:01 Last Admin: 12/13/20 13:05 Dose: 5 mg Documented by: Warfarin Sodium (Warfarin 2.5 Mg Tab) 2.5 mg PO DAILY@1400 [facility] Stop: 12/14/20 15:00 Last Admin: 12/14/20 13:16 Dose: 2.5 mg Documented by: Warfarin Sodium (Warfarin 2.5 Mg Tab) 2.5 mg PO DAILY@1400 [facility] Stop: 12/15/20 15:00 Last Admin: 12/15/20 14:18 Dose: 2.5 mg Documented by: Warfarin Sodium (Warfarin 5 Mg Tab) 5 mg PO DAILY@1400 [facility] Stop: 12/16/20 15:00 Last Admin: 12/16/20 13:07 Dose: 5 mg Documented by: Zinc Acetate/Diphenhydramine (Diphenhydramine/Zinc Acetate 1% Crm 28.3 Gm Tube) 0 gm TOP Q4H PRN PRN Reason: Itching <RayHooria - Last Filed: 12/19/20 12:35> Discharge Summary - Hospital Course HPI Initial Comments: I have seen and evaluated the patient and agree with the residents note unless specified in my note - Referral to Home Health Primary Care Physician: PCP None - Discharge Diagnosis/Problem(s) (1) SIRS (systemic inflammatory response syndrome) SNOMED Code(s): 909707439 ICD Code: R65.10 - SIRS OF NON-INFECTIOUS ORIGIN W/O ACUTE ORGAN DYSFUNCTION Status: Acute (2) Hypoxia SNOMED Code(s): 985143314 ICD Code: R09.02 - HYPOXEMIA Status: Acute (3) Lactic acidosis SNOMED Code(s): 08194588 ICD Code: E87.2 - ACIDOSIS Status: Acute (4) Recurrent falls SNOMED Code(s): 494247680 ICD Code: R29.6 - REPEATED FALLS Status: Acute (5) Right femoral vein DVT SNOMED Code(s): 407492765 ICD Code: I82.411 - ACUTE EMBOLISM AND THROMBOSIS OF RIGHT FEMORAL VEIN Status: Acute Priority: High Qualifiers: Chronicity: acute Qualified Code(s): I82.411 - Acute embolism and thrombosis of right femoral vein (6) Weakness SNOMED Code(s): 50499218 ICD Code: R53.1 - WEAKNESS Status: Acute (7) CHF (congestive heart failure) SNOMED Code(s): 61971754 ICD Code: I50.9 - HEART FAILURE, UNSPECIFIED Status: Chronic Priority: Medium (8) HTN (hypertension) SNOMED Code(s): 04921916 ICD Code: I10 - ESSENTIAL (PRIMARY) HYPERTENSION Status: Chronic Priority: Medium Qualifiers: Hypertension type: essential hypertension Qualified Code(s): I10 - Essential (primary) hypertension - Patient Summary/Data Consults: Consultations 12/10/20 10:19 Consult to Speech Language Pathology [CAPACITY MANAGEMENT SPECIALIST Evaluation and Treatment] [CONS] Routine 12/11/20 09:58 Consult to Physical Therapy [PT Evaluation and Treatment] [CONS] Routine - Discharge Summary/Plan Comment Discharge Summary/Plan Comment: I have seen and evaluated the patient and agree with the residents note unless specified in my note - Patient Data Vitals - Most Recent: Last Vital Signs Temp 36.8 C 12/18/20 12:00 Pulse 89 12/18/20 12:00 Resp 16 12/18/20 12:00 BP 121/72 12/18/20 12:00 Pulse Ox 100 12/18/20 12:00 Lab Results - Last 24 hrs: Laboratory Results - last 24 hr 12/18/20 Range/Units 11:39 Blood Type Cancelled Antibody Screen Cancelled Antibody Identification Cancelled Crossmatch See Detail Med Orders - Current: Current Medications Discontinued Medications Acetaminophen (Acetaminophen 500 Mg Tab) 1,000 mg PO ONETIME ONE Stop: 12/09/20 15:50 Last Admin: 12/09/20 15:55 Dose: 1,000 mg Documented by: Acetaminophen (Acetaminophen 325 Mg Tab) 650 mg PO Q4H PRN PRN Reason: Pain (Mild 1-3)/fever Last Admin: 12/10/20 00:38 Dose: 650 mg Documented by: Acetaminophen (Acetaminophen 500 Mg Tab) 500 mg PO Q4H PRN PRN Reason: Fever Last Admin: 12/18/20 08:01 Dose: 500 mg Documented by: Albuterol/Ipratropium (Albuterol/Ipratropium 3.0-0.5 Mg/3 Ml Neb Soln) 3 ml NEB Q4HRRT PRN PRN Reason: Shortness Of Breath/wheezing Alprazolam (Alprazolam 0.5 Mg Tab) 1 mg PO BEDTIME PRN PRN Reason: Anxiety Last Admin: 12/11/20 23:02 Dose: 1 mg Documented by: Azithromycin (Azithromycin 250 Mg Tab) 500 mg PO Q24H [facility] Last Admin: 12/13/20 09:26 Dose: 500 mg Documented by: Calcium Carbonate/Glycine (Calcium Carbonate 500 Mg Tab.Chew) 500 mg PO BID [facility] Last Admin: 12/18/20 08:00 Dose: 500 mg Documented by: Carvedilol (Carvedilol 3.125 Mg Tab) 3.125 mg PO BID [facility] Last Admin: 12/18/20 08:25 Dose: 3.125 mg Documented by: Cholecalciferol (Cholecalciferol (Vitamin D3) 25 Mcg Tab) 25 mcg PO DAILY [facility] Last Admin: 12/18/20 08:00 Dose: 25 mcg Documented by: Diphenhydramine HCl (Diphenhydramine 25 Mg Cap) 25 mg PO ONETIME ONE Stop: 12/13/20 00:34 Last Admin: 12/13/20 00:59 Dose: 25 mg Documented by: Ferrous Sulfate (Ferrous Sulfate 325 Mg Tab) 325 mg PO BIDMEALS [facility] Last Admin: 12/18/20 07:59 Dose: 325 mg Documented by: Furosemide (Furosemide 40 Mg Tab) 40 mg PO BID [facility] Last Admin: 12/14/20 08:52 Dose: 40 mg Documented by: Furosemide (Furosemide 40 Mg Tab) 40 mg PO BID [facility] Last Admin: 12/18/20 08:00 Dose: 40 mg Documented by: Gabapentin (Gabapentin 300 Mg Cap) 300 mg PO BID [facility] Last Admin: 12/18/20 08:00 Dose: 300 mg Documented by: Hydrocortisone (Hydrocortisone 1% Crm 30 Gm Tube) 0 gm TOP Q4H PRN PRN Reason: Itching Last Admin: 12/14/20 08:58 Dose: 1 each Documented by: Sodium Chloride (Normal Saline) 1,000 mls @ 999 mls/hr IV .Bolus ONE Stop: 12/09/20 16:39 Last Admin: 12/09/20 15:49 Dose: 999 mls/hr Documented by: Sodium Chloride (Normal Saline) 1,000 mls @ 999 mls/hr IV .Bolus ONE Stop: 12/09/20 16:51 Last Admin: 12/09/20 16:43 Dose: 999 mls/hr Documented by: Piperacillin Sod/Tazobactam (Sod 4.5 gm/ Sodium Chloride) 100 mls @ 100 mls/hr IV ONETIME ONE Stop: 12/09/20 19:15 Last Admin: 12/09/20 19:16 Dose: 100 mls/hr Documented by: Vancomycin HCl 2 gm/ Premix 400 mls @ 200 mls/hr IV STAT ONE Stop: 12/09/20 20:15 Last Admin: 12/09/20 21:43 Dose: 200 mls/hr Documented by: Lactated Ringer's (Ringers, Lactated) 1,000 mls @ 125 mls/hr IV ASDIRECTED [facility] Last Admin: 12/11/20 07:09 Dose: 125 mls/hr Documented by: Pantoprazole Sodium 40 mg/ (Sodium Chloride) 10 mls @ 300 mls/hr IV Q24H [facility] Last Admin: 12/10/20 18:31 Dose: 300 mls/hr Documented by: Piperacillin Sod/Tazobactam (Sod 3.375 gm/ Sodium Chloride) 50 mls @ 100 mls/hr IV Q8H [facility] Last Admin: 12/13/20 08:23 Dose: 100 mls/hr Documented by: Vancomycin HCl 1.25 gm/ Sodium (Chloride) 250 mls @ 166.667 mls/hr IV Q24H [facility] Last Admin: 12/10/20 21:36 Dose: 166.667 mls/hr Documented by: Lactated Ringer's (Ringers, Lactated) 500 mls @ 999 mls/hr IV ONETIME ONE Stop: 12/09/20 22:15 Last Admin: 12/09/20 21:53 Dose: 999 mls/hr Documented by: Magnesium Sulfate 2 gm/ Premix 50 mls @ 25 mls/hr IV Q1H [facility] Magnesium Sulfate 2 gm/ Premix 50 mls @ 12.5 mls/hr IV ONETIME ONE Stop: 12/10/20 22:54 Last Admin: 12/10/20 19:45 Dose: 12.5 mls/hr Documented by: Pantoprazole Sodium 40 mg/ (Sodium Chloride) 10 mls @ 300 mls/hr IV BID [facility] Last Admin: 12/18/20 08:00 Dose: 300 mls/hr Documented by: Magnesium Sulfate 2 gm/ Premix 50 mls @ 12.5 mls/hr IV ONETIME ONE Stop: 12/12/20 11:48 Last Admin: 12/12/20 10:21 Dose: 12.5 mls/hr Documented by: Iron Sucrose 200 mg/ Sodium (Chloride) 110 mls @ 400 mls/hr IV ONETIME ONE Stop: 12/12/20 14:58 Last Admin: 12/12/20 15:29 Dose: 400 mls/hr Documented by: Levofloxacin/Dextrose 750 mg/ (Premix) 150 mls @ 100 mls/hr IV Q24H [facility] Last Admin: 12/14/20 12:28 Dose: 100 mls/hr Documented by: Potassium Chloride 40 meq/ (Premix) 100 mls @ 25 mls/hr IV ONETIME ONE Stop: 12/13/20 15:57 Last Admin: 12/13/20 14:10 Dose: Not Given Documented by: Magnesium Sulfate 2 gm/ Premix 50 mls @ 12.5 mls/hr IV ONETIME ONE Stop: 12/13/20 16:05 Last Admin: 12/13/20 14:11 Dose: Not Given Documented by: Potassium Chloride 40 meq/ (Premix) 100 mls @ 25 mls/hr IV ONETIME ONE Stop: 12/13/20 17:59 Last Admin: 12/13/20 14:33 Dose: 25 mls/hr Documented by: Magnesium Sulfate 2 gm/ Premix 50 mls @ 12.5 mls/hr IV ONETIME ONE Stop: 12/13/20 21:59 Last Admin: 12/13/20 18:54 Dose: 12.5 mls/hr Documented by: Levofloxacin/Dextrose 750 mg/ (Premix) 150 mls @ 100 mls/hr IV Q24H [facility] Stop: 12/20/20 12:01 Last Admin: 12/15/20 11:51 Dose: 100 mls/hr Documented by: Magnesium Sulfate 2 gm/ Premix 50 mls @ 12.5 mls/hr IV ONETIME ONE Stop: 12/15/20 18:29 Last Admin: 12/15/20 15:14 Dose: 12.5 mls/hr Documented by: Magnesium Sulfate 2 gm/ Premix 50 mls @ 12.5 mls/hr IV ONETIME ONE Stop: 12/18/20 14:29 Last Admin: 12/18/20 10:50 Dose: 12.5 mls/hr Documented by: Iopamidol (Iopamidol 755 Mg/Ml 500 Ml Multipack Bottle) 100 ml IVPUSH ONETIME ONE Stop: 12/09/20 18:51 Last Admin: 12/09/20 18:50 Dose: 100 ml Documented by: Levofloxacin (Levofloxacin 500 Mg Tab) 750 mg PO Q24H JAZMIN Stop: 12/20/20 12:01 Last Admin: 12/18/20 12:47 Dose: 750 mg Documented by: Levothyroxine Sodium (Levothyroxine 100 Mcg Tab) 100 mcg PO DAILY [facility] Last Admin: 12/18/20 08:00 Dose: 100 mcg Documented by: Lidocaine HCl (Lidocaine 1% 20 Ml Mdv) Confirm Administered Dose 20 ml .ROUTE .STK-MED ONE Stop: 12/12/20 18:42 Last Admin: 12/12/20 20:04 Dose: Not Given Documented by: Non-Formulary Medication (Alprazolam [Xanax Xr]) 1 mg PO DAILY PRN PRN Reason: Anxiety Non-Formulary Medication (Calcium Carbonate [Calcium]) 600 mg PO BID [facility] Last Admin: 12/09/20 22:35 Dose: Not Given Documented by: Non-Formulary Medication (Ropinirole) 0.5 mg PO BEDTIME [facility] Last Admin: 12/09/20 22:35 Dose: Not Given Documented by: Non-Formulary Medication (Rosuvastatin Calcium [Rosuvastatin Calcium]) 20 mg PO BEDTIME [facility] Last Admin: 12/09/20 22:35 Dose: Not Given Documented by: Ondansetron HCl (Ondansetron 4 Mg/2 Ml Sdv) 4 mg IVPUSH Q4H PRN PRN Reason: Nausea/Vomiting Last Admin: 12/11/20 09:56 Dose: 4 mg Documented by: Potassium Chloride (Potassium Chloride 10% 20 Meq/15 Ml Soln 15 Ml Ud Cup) 20 meq PO ONETIME ONE Stop: 12/10/20 18:52 Last Admin: 12/11/20 02:11 Dose: Not Given Documented by: Potassium Chloride (Potassium Chloride 20 Meq Tab.Er) 20 meq PO ONETIME ONE Stop: 12/11/20 00:21 Last Admin: 12/11/20 01:10 Dose: 20 meq Documented by: Potassium Chloride (Potassium Chloride 10 Meq Tab.Er) 40 meq PO ONETIME ONE Stop: 12/11/20 14:01 Last Admin: 12/11/20 16:43 Dose: 40 meq Documented by: Potassium Chloride (Potassium Chloride 20 Meq Tab.Er) Confirm Administered Dose 40 meq .ROUTE .STK-MED ONE Stop: 12/11/20 16:09 Last Admin: 12/11/20 16:44 Dose: Not Given Documented by: Potassium Chloride (Potassium Chloride 10 Meq Tab.Er) Confirm Administered Dose 40 meq .ROUTE .STK-MED ONE Stop: 12/11/20 16:44 Last Admin: 12/11/20 17:10 Dose: Not Given Documented by: Potassium Chloride (Potassium Chloride 20 Meq Tab.Er) 40 meq PO ONETIME ONE Stop: 12/12/20 07:50 Last Admin: 12/12/20 09:03 Dose: 40 meq Documented by: Potassium Chloride (Potassium Chloride 20 Meq Tab.Er) 40 meq PO ONETIME ONE Stop: 12/12/20 12:01 Last Admin: 12/12/20 12:57 Dose: 40 meq Documented by: Potassium Chloride (Potassium Chloride 20 Meq Tab.Er) 40 meq PO ONETIME ONE Stop: 12/13/20 11:57 Last Admin: 12/13/20 12:53 Dose: 40 meq Documented by: Potassium Chloride (Potassium Chloride 20 Meq Tab.Er) 40 meq PO BID [facility] Last Admin: 12/18/20 08:00 Dose: 40 meq Documented by: Primidone (Primidone 50 Mg Tab) 150 mg PO BEDTIME [facility] Last Admin: 12/17/20 20:46 Dose: 150 mg Documented by: Ropinirole HCl (Ropinirole 0.5 Mg Tab) 0.5 mg PO BEDTIME [facility] Last Admin: 12/17/20 20:47 Dose: 0.5 mg Documented by: Rosuvastatin Calcium (Rosuvastatin 10 Mg Tab) 20 mg PO BEDTIME [facility] Last Admin: 12/17/20 20:46 Dose: 20 mg Documented by: Sodium Chloride (Sodium Chloride 0.9% 10 Ml Syringe) 10 ml FLUSH ASDIRECTED PRN PRN Reason: Keep Vein Open Last Admin: 12/09/20 15:49 Dose: 10 ml Documented by: Sodium Chloride (Sodium Chloride 0.9% 2.5 Ml Syringe) 2.5 ml FLUSH ASDIRECTED PRN PRN Reason: Keep Vein Open Last Admin: 12/09/20 15:49 Dose: 2.5 ml Documented by: Sodium Phosphate (Phosphorus #1 250 Mg Tab) 250 mg PO QID [facility] Last Admin: 12/18/20 12:45 Dose: 250 mg Documented by: Vancomycin HCl (Pharmacy To Dose - Vancomycin) 1 dose .XX ASDIRECTED [facility] Warfarin Sodium (Warfarin Ask Dosing) 1 each PO ASDIRECTED [facility] Warfarin Sodium (Warfarin Ask Dosing) 1 each PO DAILY@1400 [facility] Last Admin: 12/18/20 13:43 Dose: Not Given Documented by: Warfarin Sodium (Warfarin 5 Mg Tab) 5 mg PO 12/11/20@1400 [facility] Stop: 12/11/20 14:01 Last Admin: 12/11/20 16:35 Dose: 5 mg Documented by: Warfarin Sodium (Warfarin 5 Mg Tab) Confirm Administered Dose 5 mg .ROUTE .[facility] ONE Stop: 12/11/20 16:08 Last Admin: 12/11/20 16:44 Dose: Not Given Documented by: Warfarin Sodium (Warfarin 5 Mg Tab) 5 mg PO 12/12/20@1400 [facility] Stop: 12/12/20 16:00 Last Admin: 12/12/20 13:57 Dose: 5 mg Documented by: Warfarin Sodium (Warfarin 5 Mg Tab) 5 mg PO 12/13/20@1400 [facility] Stop: 12/13/20 14:01 Last Admin: 12/13/20 13:05 Dose: 5 mg Documented by: Warfarin Sodium (Warfarin 2.5 Mg Tab) 2.5 mg PO DAILY@1400 [facility] Stop: 12/14/20 15:00 Last Admin: 12/14/20 13:16 Dose: 2.5 mg Documented by: Warfarin Sodium (Warfarin 2.5 Mg Tab) 2.5 mg PO DAILY@1400 [facility] Stop: 12/15/20 15:00 Last Admin: 12/15/20 14:18 Dose: 2.5 mg Documented by: Warfarin Sodium (Warfarin 5 Mg Tab) 5 mg PO DAILY@1400 [facility] Stop: 12/16/20 15:00 Last Admin: 12/16/20 13:07 Dose: 5 mg Documented by: Warfarin Sodium (Warfarin 2.5 Mg Tab) 2.5 mg PO 12/17/20@1100 [facility] Stop: 12/17/20 13:00 Last Admin: 12/17/20 11:39 Dose: 2.5 mg Documented by: Warfarin Sodium (Warfarin 5 Mg Tab) 5 mg PO DAILY@1400 [facility] Stop: 12/18/20 15:00 Last Admin: 12/18/20 13:42 Dose: 5 mg Documented by: Zinc Acetate/Diphenhydramine (Diphenhydramine/Zinc Acetate 1% Crm 28.3 Gm Tube) 0 gm TOP Q4H PRN PRN Reason: Itching
[2020-12-17] MEDS ORDERED: Warfarin 2.5 MG Tab PO SCH (11:00)
[2020-12-17] MEDS: Levofloxacin 500 MG Tab PO SCH (11:40)
[2020-12-17] MEDS: Rosuvastatin 10 MG Tab PO SCH (20:46)
[2020-12-17] MEDS: Primidone 50 MG Tab PO SCH (20:46)
[2020-12-17] MEDS: rOPINIRole 0.5 MG Tab PO SCH (20:47)
--- NOTE | 2020-12-17 20:51 | PCM.PN ---
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 Denies any source of bleed, was thoroughly evaluated and found to have no obvious source of bleed. Warfarin was resumed, pharmacy continues to dose per daily INR's. Patient remains afebrile, stable, states that she has much improved. Specifically the rash has resolved. Functional Status: Reports: Tolerating Diet, Urinating - Review of Systems General: Reports: No Symptoms HEENT: Reports: No Symptoms Pulmonary: Reports: No Symptoms Cardiovascular: Reports: No Symptoms Gastrointestinal: Reports: No Symptoms Genitourinary: Reports: No Symptoms Musculoskeletal: Reports: No Symptoms Skin: Reports: No Symptoms Neurological: Reports: No Symptoms Psychiatric: Reports: No Symptoms - Patient Data Vitals - Most Recent: Last Vital Signs Temp 98.1 F 12/17/20 20:39 Pulse 90 12/17/20 20:47 Resp 17 12/17/20 20:39 BP 121/62 12/17/20 20:47 Pulse Ox 97 12/17/20 20:39 Weight - Most Recent: 202 lb 3.2 oz I&O - Last 24 Hours: Intake & Output 12/17/20 12/17/20 12/17/20 06:59 14:59 22:59 Intake Total 900 760 Output Total 1400 700 Balance -500 60 Lab Results Last 24 Hours: Laboratory Results - last 24 hr 12/17/20 12/17/20 12/17/20 Range/Units 05:20 05:20 05:20 WBC 9.29 (4.0-11.0) K/uL RBC 2.93 L (4.30-5.90) M/uL Hgb 7.9 L (12.0-16.0) g/dL Hct 26.2 L (36.0-46.0) % MCV 89.4 (80.0-98.0) fL MCH 27.0 (27.0-32.0) pg MCHC 30.2 L (31.0-37.0) g/dL RDW Std Deviation 55.1 (28.0-62.0) fl RDW Coeff of Sebastien 17 H (11.0-15.0) % Plt Count 379 (150-400) K/uL MPV 9.20 (7.40-12.00) fL Add Manual Diff YES Neutrophils % (Manual) 67 (48.0-80.0) % Band Neutrophils % 8 % Lymphocytes % (Manual) 21 (16.0-40.0) % Monocytes % (Manual) 1 (0.0-15.0) % Eosinophils % (Manual) 2 (0.0-7.0) % Basophils % (Manual) 1 (0.0-1.5) % Nucleated RBC % 0.2 /100WBC Absolute Seg Neuts 6.2 H (1.4-5.7) Band Neutrophils # 0.7 Lymphocytes # (Manual) 2.0 (0.6-2.4) Monocytes # (Manual) 0.1 (0.0-0.8) Eosinophils # (Manual) 0.2 (0.0-0.7) Basophils # (Manual) 0.1 (0.0-0.1) Nucleated RBCs # 0 K/uL INR 2.12 Sodium 143 (136-145) mmol/L Potassium 3.8 (3.5-5.1) mmol/L Chloride 106 (98-107) mmol/L Carbon Dioxide 30.4 (21.0-32.0) mmol/L BUN 7 (7.0-18.0) mg/dL Creatinine 1.0 (0.6-1.0) mg/dL Est Cr Clr Drug Dosing 42.18 mL/min Estimated GFR (MDRD) 53.1 ml/min Glucose 103 (74-106) mg/dL Calcium 8.2 L (8.5-10.1) mg/dL Phosphorus 3.7 (2.6-4.7) mg/dL Magnesium 1.6 L (1.8-2.4) mg/dL Total Bilirubin 0.2 (0.2-1.0) mg/dL AST 22 (15-37) IU/L ALT 22 (14-63) IU/L Alkaline Phosphatase 97 (46-116) U/L Total Protein 5.7 L (6.4-8.2) g/dL Albumin 2.0 L (3.4-5.0) g/dL Globulin 3.7 (2.6-4.0) g/dL Albumin/Globulin Ratio 0.5 L (0.9-1.6) SARS-CoV-2 RNA (DEISI) (NEGATIVE) 12/17/20 Range/Units 09:20 WBC (4.0-11.0) K/uL RBC (4.30-5.90) M/uL Hgb (12.0-16.0) g/dL Hct (36.0-46.0) % MCV (80.0-98.0) fL MCH (27.0-32.0) pg MCHC (31.0-37.0) g/dL RDW Std Deviation (28.0-62.0) fl RDW Coeff of Sebastien (11.0-15.0) % Plt Count (150-400) K/uL MPV (7.40-12.00) fL Add Manual Diff Neutrophils % (Manual) (48.0-80.0) % Band Neutrophils % % Lymphocytes % (Manual) (16.0-40.0) % Monocytes % (Manual) (0.0-15.0) % Eosinophils % (Manual) (0.0-7.0) % Basophils % (Manual) (0.0-1.5) % Nucleated RBC % /100WBC Absolute Seg Neuts (1.4-5.7) Band Neutrophils # Lymphocytes # (Manual) (0.6-2.4) Monocytes # (Manual) (0.0-0.8) Eosinophils # (Manual) (0.0-0.7) Basophils # (Manual) (0.0-0.1) Nucleated RBCs # K/uL INR Sodium (136-145) mmol/L Potassium (3.5-5.1) mmol/L Chloride (98-107) mmol/L Carbon Dioxide (21.0-32.0) mmol/L BUN (7.0-18.0) mg/dL Creatinine (0.6-1.0) mg/dL Est Cr Clr Drug Dosing mL/min Estimated GFR (MDRD) ml/min Glucose (74-106) mg/dL Calcium (8.5-10.1) mg/dL Phosphorus (2.6-4.7) mg/dL Magnesium (1.8-2.4) mg/dL Total Bilirubin (0.2-1.0) mg/dL AST (15-37) IU/L ALT (14-63) IU/L Alkaline Phosphatase (46-116) U/L Total Protein (6.4-8.2) g/dL Albumin (3.4-5.0) g/dL Globulin (2.6-4.0) g/dL Albumin/Globulin Ratio (0.9-1.6) SARS-CoV-2 RNA (DEISI) NEGATIVE (NEGATIVE) Med Orders - Current: Current Medications Acetaminophen (Acetaminophen 500 Mg Tab) 500 mg PO Q4H PRN PRN Reason: Fever Last Admin: 12/10/20 21:31 Dose: 500 mg Documented by: Albuterol/Ipratropium (Albuterol/Ipratropium 3.0-0.5 Mg/3 Ml Neb Soln) 3 ml NEB Q4HRRT PRN PRN Reason: Shortness Of Breath/wheezing Calcium Carbonate/Glycine (Calcium Carbonate 500 Mg Tab.Chew) 500 mg PO BID [facility] Last Admin: 12/17/20 20:47 Dose: 500 mg Documented by: Carvedilol (Carvedilol 3.125 Mg Tab) 3.125 mg PO BID [facility] Last Admin: 12/17/20 20:47 Dose: 3.125 mg Documented by: Cholecalciferol (Cholecalciferol (Vitamin D3) 25 Mcg Tab) 25 mcg PO DAILY [facility] Last Admin: 12/17/20 08:36 Dose: 25 mcg Documented by: Ferrous Sulfate (Ferrous Sulfate 325 Mg Tab) 325 mg PO BIDMEALS [facility] Last Admin: 12/17/20 16:36 Dose: 325 mg Documented by: Furosemide (Furosemide 40 Mg Tab) 40 mg PO BID [facility] Last Admin: 12/17/20 20:47 Dose: 40 mg Documented by: Gabapentin (Gabapentin 300 Mg Cap) 300 mg PO BID [facility] Last Admin: 12/17/20 20:47 Dose: 300 mg Documented by: Pantoprazole Sodium 40 mg/ (Sodium Chloride) 10 mls @ 300 mls/hr IV BID [facility] Last Admin: 12/17/20 20:41 Dose: 300 mls/hr Documented by: Levofloxacin (Levofloxacin 500 Mg Tab) 750 mg PO Q24H [facility] Stop: 12/20/20 12:01 Last Admin: 12/17/20 11:40 Dose: 750 mg Documented by: Levothyroxine Sodium (Levothyroxine 100 Mcg Tab) 100 mcg PO DAILY [facility] Last Admin: 12/17/20 08:36 Dose: 100 mcg Documented by: Ondansetron HCl (Ondansetron 4 Mg/2 Ml Sdv) 4 mg IVPUSH Q4H PRN PRN Reason: Nausea/Vomiting Last Admin: 12/11/20 09:56 Dose: 4 mg Documented by: Potassium Chloride (Potassium Chloride 20 Meq Tab.Er) 40 meq PO BID [facility] Last Admin: 12/17/20 20:47 Dose: 40 meq Documented by: Primidone (Primidone 50 Mg Tab) 150 mg PO BEDTIME [facility] Last Admin: 12/17/20 20:46 Dose: 150 mg Documented by: Ropinirole HCl (Ropinirole 0.5 Mg Tab) 0.5 mg PO BEDTIME [facility] Last Admin: 12/17/20 20:47 Dose: 0.5 mg Documented by: Rosuvastatin Calcium (Rosuvastatin 10 Mg Tab) 20 mg PO BEDTIME [facility] Last Admin: 12/17/20 20:46 Dose: 20 mg Documented by: Sodium Chloride (Sodium Chloride 0.9% 10 Ml Syringe) 10 ml FLUSH ASDIRECTED PRN PRN Reason: Keep Vein Open Last Admin: 12/09/20 15:49 Dose: 10 ml Documented by: Sodium Chloride (Sodium Chloride 0.9% 2.5 Ml Syringe) 2.5 ml FLUSH ASDIRECTED PRN PRN Reason: Keep Vein Open Last Admin: 12/09/20 15:49 Dose: 2.5 ml Documented by: Sodium Phosphate (Phosphorus #1 250 Mg Tab) 250 mg PO QID [facility] Last Admin: 12/17/20 17:32 Dose: 250 mg Documented by: Warfarin Sodium (Warfarin Ask Dosing) 1 each PO DAILY@1400 [facility] Last Admin: 12/17/20 13:28 Dose: Not Given Documented by: Discontinued Medications Acetaminophen (Acetaminophen 500 Mg Tab) 1,000 mg PO ONETIME ONE Stop: 12/09/20 15:50 Last Admin: 12/09/20 15:55 Dose: 1,000 mg Documented by: Acetaminophen (Acetaminophen 325 Mg Tab) 650 mg PO Q4H PRN PRN Reason: Pain (Mild 1-3)/fever Last Admin: 12/10/20 00:38 Dose: 650 mg Documented by: Alprazolam (Alprazolam 0.5 Mg Tab) 1 mg PO BEDTIME PRN PRN Reason: Anxiety Last Admin: 12/11/20 23:02 Dose: 1 mg Documented by: Azithromycin (Azithromycin 250 Mg Tab) 500 mg PO Q24H [facility] Last Admin: 12/13/20 09:26 Dose: 500 mg Documented by: Diphenhydramine HCl (Diphenhydramine 25 Mg Cap) 25 mg PO ONETIME ONE Stop: 12/13/20 00:34 Last Admin: 12/13/20 00:59 Dose: 25 mg Documented by: Furosemide (Furosemide 40 Mg Tab) 40 mg PO BID [facility] Last Admin: 12/14/20 08:52 Dose: 40 mg Documented by: Hydrocortisone (Hydrocortisone 1% Crm 30 Gm Tube) 0 gm TOP Q4H PRN PRN Reason: Itching Last Admin: 12/14/20 08:58 Dose: 1 each Documented by: Sodium Chloride (Normal Saline) 1,000 mls @ 999 mls/hr IV .Bolus ONE Stop: 12/09/20 16:39 Last Admin: 12/09/20 15:49 Dose: 999 mls/hr Documented by: Sodium Chloride (Normal Saline) 1,000 mls @ 999 mls/hr IV .Bolus ONE Stop: 12/09/20 16:51 Last Admin: 12/09/20 16:43 Dose: 999 mls/hr Documented by: Piperacillin Sod/Tazobactam (Sod 4.5 gm/ Sodium Chloride) 100 mls @ 100 mls/hr IV ONETIME ONE Stop: 12/09/20 19:15 Last Admin: 12/09/20 19:16 Dose: 100 mls/hr Documented by: Vancomycin HCl 2 gm/ Premix 400 mls @ 200 mls/hr IV STAT ONE Stop: 12/09/20 20:15 Last Admin: 12/09/20 21:43 Dose: 200 mls/hr Documented by: Lactated Ringer's (Ringers, Lactated) 1,000 mls @ 125 mls/hr IV ASDIRECTED [facility] Last Admin: 12/11/20 07:09 Dose: 125 mls/hr Documented by: Pantoprazole Sodium 40 mg/ (Sodium Chloride) 10 mls @ 300 mls/hr IV Q24H [facility] Last Admin: 12/10/20 18:31 Dose: 300 mls/hr Documented by: Piperacillin Sod/Tazobactam (Sod 3.375 gm/ Sodium Chloride) 50 mls @ 100 mls/hr IV Q8H [facility] Last Admin: 12/13/20 08:23 Dose: 100 mls/hr Documented by: Vancomycin HCl 1.25 gm/ Sodium (Chloride) 250 mls @ 166.667 mls/hr IV Q24H [facility] Last Admin: 12/10/20 21:36 Dose: 166.667 mls/hr Documented by: Lactated Ringer's (Ringers, Lactated) 500 mls @ 999 mls/hr IV ONETIME ONE Stop: 12/09/20 22:15 Last Admin: 12/09/20 21:53 Dose: 999 mls/hr Documented by: Magnesium Sulfate 2 gm/ Premix 50 mls @ 25 mls/hr IV Q1H [facility] Magnesium Sulfate 2 gm/ Premix 50 mls @ 12.5 mls/hr IV ONETIME ONE Stop: 12/10/20 22:54 Last Admin: 12/10/20 19:45 Dose: 12.5 mls/hr Documented by: Magnesium Sulfate 2 gm/ Premix 50 mls @ 12.5 mls/hr IV ONETIME ONE Stop: 12/12/20 11:48 Last Admin: 12/12/20 10:21 Dose: 12.5 mls/hr Documented by: Iron Sucrose 200 mg/ Sodium (Chloride) 110 mls @ 400 mls/hr IV ONETIME ONE Stop: 12/12/20 14:58 Last Admin: 12/12/20 15:29 Dose: 400 mls/hr Documented by: Levofloxacin/Dextrose 750 mg/ (Premix) 150 mls @ 100 mls/hr IV Q24H [facility] Last Admin: 12/14/20 12:28 Dose: 100 mls/hr Documented by: Potassium Chloride 40 meq/ (Premix) 100 mls @ 25 mls/hr IV ONETIME ONE Stop: 12/13/20 15:57 Last Admin: 12/13/20 14:10 Dose: Not Given Documented by: Magnesium Sulfate 2 gm/ Premix 50 mls @ 12.5 mls/hr IV ONETIME ONE Stop: 12/13/20 16:05 Last Admin: 12/13/20 14:11 Dose: Not Given Documented by: Potassium Chloride 40 meq/ (Premix) 100 mls @ 25 mls/hr IV ONETIME ONE Stop: 12/13/20 17:59 Last Admin: 12/13/20 14:33 Dose: 25 mls/hr Documented by: Magnesium Sulfate 2 gm/ Premix 50 mls @ 12.5 mls/hr IV ONETIME ONE Stop: 12/13/20 21:59 Last Admin: 12/13/20 18:54 Dose: 12.5 mls/hr Documented by: Levofloxacin/Dextrose 750 mg/ (Premix) 150 mls @ 100 mls/hr IV Q24H [facility] Stop: 12/20/20 12:01 Last Admin: 12/15/20 11:51 Dose: 100 mls/hr Documented by: Magnesium Sulfate 2 gm/ Premix 50 mls @ 12.5 mls/hr IV ONETIME ONE Stop: 12/15/20 18:29 Last Admin: 12/15/20 15:14 Dose: 12.5 mls/hr Documented by: Iopamidol (Iopamidol 755 Mg/Ml 500 Ml Multipack Bottle) 100 ml IVPUSH ONETIME ONE Stop: 12/09/20 18:51 Last Admin: 12/09/20 18:50 Dose: 100 ml Documented by: Lidocaine HCl (Lidocaine 1% 20 Ml Mdv) Confirm Administered Dose 20 ml .ROUTE .STK-MED ONE Stop: 12/12/20 18:42 Last Admin: 12/12/20 20:04 Dose: Not Given Documented by: Non-Formulary Medication (Alprazolam [Xanax Xr]) 1 mg PO DAILY PRN PRN Reason: Anxiety Non-Formulary Medication (Calcium Carbonate [Calcium]) 600 mg PO BID [facility] Last Admin: 12/09/20 22:35 Dose: Not Given Documented by: Non-Formulary Medication (Ropinirole) 0.5 mg PO BEDTIME [facility] Last Admin: 12/09/20 22:35 Dose: Not Given Documented by: Non-Formulary Medication (Rosuvastatin Calcium [Rosuvastatin Calcium]) 20 mg PO BEDTIME [facility] Last Admin: 12/09/20 22:35 Dose: Not Given Documented by: Potassium Chloride (Potassium Chloride 10% 20 Meq/15 Ml Soln 15 Ml Ud Cup) 20 meq PO ONETIME ONE Stop: 12/10/20 18:52 Last Admin: 12/11/20 02:11 Dose: Not Given Documented by: Potassium Chloride (Potassium Chloride 20 Meq Tab.Er) 20 meq PO ONETIME ONE Stop: 12/11/20 00:21 Last Admin: 12/11/20 01:10 Dose: 20 meq Documented by: Potassium Chloride (Potassium Chloride 10 Meq Tab.Er) 40 meq PO ONETIME ONE Stop: 12/11/20 14:01 Last Admin: 12/11/20 16:43 Dose: 40 meq Documented by: Potassium Chloride (Potassium Chloride 20 Meq Tab.Er) Confirm Administered Dose 40 meq .ROUTE .STK-MED ONE Stop: 12/11/20 16:09 Last Admin: 12/11/20 16:44 Dose: Not Given Documented by: Potassium Chloride (Potassium Chloride 10 Meq Tab.Er) Confirm Administered Dose 40 meq .ROUTE .STK-MED ONE Stop: 12/11/20 16:44 Last Admin: 12/11/20 17:10 Dose: Not Given Documented by: Potassium Chloride (Potassium Chloride 20 Meq Tab.Er) 40 meq PO ONETIME ONE Stop: 12/12/20 07:50 Last Admin: 12/12/20 09:03 Dose: 40 meq Documented by: Potassium Chloride (Potassium Chloride 20 Meq Tab.Er) 40 meq PO ONETIME ONE Stop: 12/12/20 12:01 Last Admin: 12/12/20 12:57 Dose: 40 meq Documented by: Potassium Chloride (Potassium Chloride 20 Meq Tab.Er) 40 meq PO ONETIME ONE Stop: 12/13/20 11:57 Last Admin: 12/13/20 12:53 Dose: 40 meq Documented by: Vancomycin HCl (Pharmacy To Dose - Vancomycin) 1 dose .XX ASDIRECTED [facility] Warfarin Sodium (Warfarin Ask Dosing) 1 each PO ASDIRECTED [facility] Warfarin Sodium (Warfarin 5 Mg Tab) 5 mg PO 12/11/20@1400 [facility] Stop: 12/11/20 14:01 Last Admin: 12/11/20 16:35 Dose: 5 mg Documented by: Warfarin Sodium (Warfarin 5 Mg Tab) Confirm Administered Dose 5 mg .ROUTE .STK- MED ONE Stop: 12/11/20 16:08 Last Admin: 12/11/20 16:44 Dose: Not Given Documented by: Warfarin Sodium (Warfarin 5 Mg Tab) 5 mg PO 12/12/20@1400 [facility] Stop: 12/12/20 16:00 Last Admin: 12/12/20 13:57 Dose: 5 mg Documented by: Warfarin Sodium (Warfarin 5 Mg Tab) 5 mg PO 12/13/20@1400 [facility] Stop: 12/13/20 14:01 Last Admin: 12/13/20 13:05 Dose: 5 mg Documented by: Warfarin Sodium (Warfarin 2.5 Mg Tab) 2.5 mg PO DAILY@1400 [facility] Stop: 12/14/20 15:00 Last Admin: 12/14/20 13:16 Dose: 2.5 mg Documented by: Warfarin Sodium (Warfarin 2.5 Mg Tab) 2.5 mg PO DAILY@1400 [facility] Stop: 12/15/20 15:00 Last Admin: 12/15/20 14:18 Dose: 2.5 mg Documented by: Warfarin Sodium (Warfarin 5 Mg Tab) 5 mg PO DAILY@1400 [facility] Stop: 12/16/20 15:00 Last Admin: 12/16/20 13:07 Dose: 5 mg Documented by: Warfarin Sodium (Warfarin 2.5 Mg Tab) 2.5 mg PO 12/17/20@1100 [facility] Stop: 12/17/20 13:00 Last Admin: 12/17/20 11:39 Dose: 2.5 mg Documented by: Zinc Acetate/Diphenhydramine (Diphenhydramine/Zinc Acetate 1% Crm 28.3 Gm Tube) 0 gm TOP Q4H PRN PRN Reason: Itching - Exam Quality Assessment: DVT Prophylaxis Urinary Catheter Total Time: 2 General: Alert, Oriented, Cooperative, No Acute Distress HEENT: Pupils Equal, Pupils Reactive, EOMI Neck: Supple, Trachea Midline, No JVD. No: Lymphadenopathy Lungs: Clear to Auscultation, Normal Respiratory Effort Cardiovascular: Regular Rate, Regular Rhythm, No Murmurs GI/Abdominal Exam: Normal Bowel Sounds, Soft, Non-Tender, No Distention, No Mass Extremities: Normal Inspection, Normal Range of Motion, Normal Capillary Refill Peripheral Pulses: 2+: Carotid (L), Carotid (R), Dorsalis Pedis (L), Dorsalis Pedis (R) Skin: Warm, Dry, Intact Wound/Incisions: Healing Well Neurological: No New Focal Deficit Psy/Mental Status: Alert, Normal Affect, Normal Mood - Patient Data Lab Results Last 24 hrs: Laboratory Results - last 24 hr 12/17/20 12/17/20 12/17/20 Range/Units 05:20 05:20 05:20 WBC 9.29 (4.0-11.0) K/uL RBC 2.93 L (4.30-5.90) M/uL Hgb 7.9 L (12.0-16.0) g/dL Hct 26.2 L (36.0-46.0) % MCV 89.4 (80.0-98.0) fL MCH 27.0 (27.0-32.0) pg MCHC 30.2 L (31.0-37.0) g/dL RDW Std Deviation 55.1 (28.0-62.0) fl RDW Coeff of Sebastien 17 H (11.0-15.0) % Plt Count 379 (150-400) K/uL MPV 9.20 (7.40-12.00) fL Add Manual Diff YES Neutrophils % (Manual) 67 (48.0-80.0) % Band Neutrophils % 8 % Lymphocytes % (Manual) 21 (16.0-40.0) % Monocytes % (Manual) 1 (0.0-15.0) % Eosinophils % (Manual) 2 (0.0-7.0) % Basophils % (Manual) 1 (0.0-1.5) % Nucleated RBC % 0.2 /100WBC Absolute Seg Neuts 6.2 H (1.4-5.7) Band Neutrophils # 0.7 Lymphocytes # (Manual) 2.0 (0.6-2.4) Monocytes # (Manual) 0.1 (0.0-0.8) Eosinophils # (Manual) 0.2 (0.0-0.7) Basophils # (Manual) 0.1 (0.0-0.1) Nucleated RBCs # 0 K/uL INR 2.12 Sodium 143 (136-145) mmol/L Potassium 3.8 (3.5-5.1) mmol/L Chloride 106 (98-107) mmol/L Carbon Dioxide 30.4 (21.0-32.0) mmol/L BUN 7 (7.0-18.0) mg/dL Creatinine 1.0 (0.6-1.0) mg/dL Est Cr Clr Drug Dosing 42.18 mL/min Estimated GFR (MDRD) 53.1 ml/min Glucose 103 (74-106) mg/dL Calcium 8.2 L (8.5-10.1) mg/dL Phosphorus 3.7 (2.6-4.7) mg/dL Magnesium 1.6 L (1.8-2.4) mg/dL Total Bilirubin 0.2 (0.2-1.0) mg/dL AST 22 (15-37) IU/L ALT 22 (14-63) IU/L Alkaline Phosphatase 97 (46-116) U/L Total Protein 5.7 L (6.4-8.2) g/dL Albumin 2.0 L (3.4-5.0) g/dL Globulin 3.7 (2.6-4.0) g/dL Albumin/Globulin Ratio 0.5 L (0.9-1.6) SARS-CoV-2 RNA (DEISI) (NEGATIVE) 12/17/20 Range/Units 09:20 WBC (4.0-11.0) K/uL RBC (4.30-5.90) M/uL Hgb (12.0-16.0) g/dL Hct (36.0-46.0) % MCV (80.0-98.0) fL MCH (27.0-32.0) pg MCHC (31.0-37.0) g/dL RDW Std Deviation (28.0-62.0) fl RDW Coeff of Sebastien (11.0-15.0) % Plt Count (150-400) K/uL MPV (7.40-12.00) fL Add Manual Diff Neutrophils % (Manual) (48.0-80.0) % Band Neutrophils % % Lymphocytes % (Manual) (16.0-40.0) % Monocytes % (Manual) (0.0-15.0) % Eosinophils % (Manual) (0.0-7.0) % Basophils % (Manual) (0.0-1.5) % Nucleated RBC % /100WBC Absolute Seg Neuts (1.4-5.7) Band Neutrophils # Lymphocytes # (Manual) (0.6-2.4) Monocytes # (Manual) (0.0-0.8) Eosinophils # (Manual) (0.0-0.7) Basophils # (Manual) (0.0-0.1) Nucleated RBCs # K/uL INR Sodium (136-145) mmol/L Potassium (3.5-5.1) mmol/L Chloride (98-107) mmol/L Carbon Dioxide (21.0-32.0) mmol/L BUN (7.0-18.0) mg/dL Creatinine (0.6-1.0) mg/dL Est Cr Clr Drug Dosing mL/min Estimated GFR (MDRD) ml/min Glucose (74-106) mg/dL Calcium (8.5-10.1) mg/dL Phosphorus (2.6-4.7) mg/dL Magnesium (1.8-2.4) mg/dL Total Bilirubin (0.2-1.0) mg/dL AST (15-37) IU/L ALT (14-63) IU/L Alkaline Phosphatase (46-116) U/L Total Protein (6.4-8.2) g/dL Albumin (3.4-5.0) g/dL Globulin (2.6-4.0) g/dL Albumin/Globulin Ratio (0.9-1.6) SARS-CoV-2 RNA (DEISI) NEGATIVE (NEGATIVE) Result Diagrams: 12/17/20 05:20 12/17/20 05:20 Sepsis Event Note - Evaluation Sepsis Screening Result: No Definite Risk - Focused Exam Vital Signs: Vital Signs Temp Pulse Pulse Resp BP BP Pulse Ox 12/17/20 20:47 90 121/62 12/17/20 20:39 98.1 F 90 17 121/62 97 12/17/20 19:00 12/17/20 16:00 96.8 F L 89 18 126/72 100 12/17/20 12:00 97.7 F 80 16 125/68 96 Pulse Ox 12/17/20 20:47 12/17/20 20:39 12/17/20 19:00 100 12/17/20 16:00 12/17/20 12:00 - Problem List & Annotations (1) Rash SNOMED Code(s): 146629206, 391526536 Code(s): R21 - RASH AND OTHER NONSPECIFIC SKIN ERUPTION Status: Acute Current Visit: Yes - Problem List Review Problem List Initiated/Reviewed/Updated: Yes - My Orders Last 24 Hours: My Active Orders 12/17/20 09:15 Communication Order [RC] PER UNIT ROUTINE 12/18/20 05:11 CBC WITH AUTO DIFF [HEME] AM CMP [COMPREHENSIVE METABOLIC PN,CMP] [CHEM] AM - Plan Plan:: 80-year-old female was admitted for aspiration pneumonia, Pneumonia: Resolved patient remained afebrile no leukocytosis, therefore we can discontinue Levaquin Rash: Resolved Hx of CHF: continue lasix and daily 40 p.o. potassium supplementation Hx of DVTs: continue coumadin pharmacy asked with daily INRs dispo: pending placement at SNF
[2020-12-18] MEDS: Phosphorus #1 250 MG Tab PO SCH ×3 (00:38→12:45)
[2020-12-18 05:50] LABS: CARBON DIOXIDE,CO2 29.6 mmol/L (21.0-32.0); POTASSIUM,K 3.9 mmol/L (3.5-5.1)
[2020-12-18] MEDS: Ferrous Sulfate 325 MG Tab PO SCH (07:59)
[2020-12-18] MEDS: Potassium Chloride 20 MEQ Tab.ER PO SCH (08:00)
[2020-12-18] MEDS: Furosemide 40 MG Tab PO SCH (08:00)
[2020-12-18] MEDS: Cholecalciferol (Vitamin D3) 25 MCG Tab PO SCH (08:00)
[2020-12-18] MEDS: Calcium Carbonate 500 MG Tab.Chew PO SCH (08:00)
[2020-12-18] MEDS: Gabapentin 300 MG Cap PO SCH (08:00)
[2020-12-18] MEDS: Levothyroxine 100 MCG Tab PO SCH (08:00)
[2020-12-18] MEDS: Pantoprazole 40 MG in Sodium Chloride 0.9% 10 ML IV SCH (08:00)
[2020-12-18] MEDS: Acetaminophen 500 MG Tab PO PRN (08:01)
[2020-12-18] MEDS: Carvedilol 3.125 MG Tab PO SCH (08:25)
[2020-12-18] MEDS ORDERED: Magnesium Sulfate/Water 2 GM in Premix Bag 1 BAG IV ONE (10:30)
[2020-12-18] MEDS: Levofloxacin 500 MG Tab PO SCH (12:47)
[2020-12-18] MEDS ORDERED: Warfarin 5 MG Tab PO SCH (14:00)
[2020-12-18 16:34] VITALS: BP 121/72; PULSE 89
== END 2020-12-18 14:00 | disposition home health service (06) | DRG 178 ==
LOC: MW.ED 15:33 → MW.MS 18:31
PROVIDERS: ADMIT Student in an Organized Health Care Education/Training Program; ATTEND Student in an Organized Health Care Education/Training Program
DX: A41.9 Sepsis, unspecified organism (principal); I50.9 Heart failure, unspecified; J69.0 Pneumonitis due to inhalation of food and vomit; I50.32 Chronic diastolic (congestive) heart failure; R65.10 Systemic inflammatory response syndrome (SIRS) of non-infectious origin without acute organ dysfunction; Z88.8 Allergy status to other drugs, medicaments and biological substances; E87.2 Acidosis; E03.9 Hypothyroidism, unspecified; I11.0 Hypertensive heart disease with heart failure; Z86.718 Personal history of other venous thrombosis and embolism; Z79.01 Long term (current) use of anticoagulants; R21 Rash and other nonspecific skin eruption; Z86.711 Personal history of pulmonary embolism; Z98.42 Cataract extraction status, left eye; Z98.41 Cataract extraction status, right eye; Z98.890 Other specified postprocedural states; Z90.49 Acquired absence of other specified parts of digestive tract; Z90.710 Acquired absence of both cervix and uterus; Z96.653 Presence of artificial knee joint, bilateral; Z96.642 Presence of left artificial hip joint; R09.02 Hypoxemia; R29.6 Repeated falls; Z20.822 Contact with and (suspected) exposure to COVID-19; D64.9 Anemia, unspecified; E87.6 Hypokalemia; E83.42 Hypomagnesemia; E83.39 Other disorders of phosphorus metabolism; Z66 Do not resuscitate; G20 Parkinson's disease; M51.34 Other intervertebral disc degeneration, thoracic region; G25.0 Essential tremor; Z79.890 Hormone replacement therapy; Z79.899 Other long term (current) drug therapy
CPT/HCPCS: 36415; 71045; 71275; 73030; 73110; 74174; 80053; 81001; 83605; 83690; 83735; 83880; 84484; 85025; 85610; 85730; 86140; 87040 ×2; 93005; 99285; A9270; J7030 ×2; U0002; 36410; 71046; 71046-26; 74230; 74230-26; 80048; 81003; 82272; 82607; 82728; 82746; 83550; 84100; 84132; 85014; 85018; 85045; 86920; 86921; 86922; 92610-GN; 92611-GN; 93010; 93306; 96365; 97110-GP; 97161-GP; 99291; C9113; J1756; J1956; J2405; J2543; J3370; J3475; J3480; J7050; J7120; Q9967

== ENCOUNTER 2020-12-26 06:00 | Emergency (ER) | payer MEDICARE, BC ==
--- NOTE | 2020-12-26 06:39 | EDM.PDOC ---
ED HPI GENERAL MEDICAL PROBLEM - General Stated Complaint: FALL Time Seen by Provider: 12/26/20 06:36 - History of Present Illness INITIAL COMMENTS - FREE TEXT/NARRATIVE: 80-year-old female on warfarin for history of DVT presents after a fall. Patient was going the bathroom and slipped when she was standing up falling forward striking her head and her left hand. No LOC some nausea after this but no vomiting she presents with mild pain in the left hand she denies any headache neck pain chest pain shortness of breath palpitations abdominal pain or other extremity pain. - Related Data Allergies Allergy/AdvReac Type Severity Reaction Status Date / Time NSAIDS (Non-Steroidal Allergy Other Verified 12/10/20 08:28 Anti-Inflamma Home Meds: Home Meds ALPRAZolam [Xanax XR] 1 mg PO DAILY PRN 10/19/17 [History] Calcium Carbonate [Calcium] 600 mg PO BID 10/19/17 [History] Cholecalciferol (Vitamin D3) [Vitamin D] 1,000 unit PO DAILY 10/19/17 [History] Furosemide 40 mg PO BID 10/19/17 [History] Levothyroxine [Synthroid] 100 mcg PO ACBREAKFAST 10/19/17 [History] Primidone 150 mg PO BEDTIME 10/19/17 [History] Warfarin [Coumadin] 5 mg PO SUTUTHSA 10/19/17 [History] carvediloL [Carvedilol] 3.125 mg PO BID 10/19/17 [History] Gabapentin [Neurontin] 300 mg PO BID 08/29/19 [History] Potassium Chloride [Klor-Con M20] 20 meq PO BID 08/30/19 [History] rOPINIRole [Requip] 0.5 mg PO BEDTIME 08/30/19 [History] Rosuvastatin Calcium 20 mg PO BEDTIME 12/05/20 [History] traMADol [Ultram] 50 mg PO TID PRN 12/05/20 [History] Warfarin [Coumadin] 2.5 mg PO MOWEFR 12/06/20 [History] Acetaminophen [Tylenol Extra Strength] 500 mg PO Q4H PRN tablet 12/08/20 [Rx] cephALEXin [Keflex] 250 mg PO Q6H 4 Days #16 cap 12/08/20 [Rx] Ferrous Sulfate 325 mg PO BIDMEALS #30 tablet 12/17/20 [Rx] Furosemide [Lasix] 40 mg PO BID 30 Days tablet 12/17/20 [Rx] Potassium Chloride [Klor-Con M20] 40 meq PO BID tab.er 12/17/20 [Rx] Warfarin Dosing [Coumadin Ask] 1 each PO DAILY@1400 tablet 12/17/20 [Rx] Warfarin [Coumadin] 2.5 mg PO DAILY@1400 tablet 12/17/20 [Rx] Past Medical History HEENT History: Reports: Cataract Cardiovascular History: Reports: Blood Clots/VTE/DVT, Heart Failure Respiratory History: Reports: PE Gastrointestinal History: Reports: None Genitourinary History: Reports: None 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 Neurological History: Reports: None Psychiatric History: Reports: None Endocrine/Metabolic History: Reports: Hypothyroidism Hematologic History: Reports: Other (See Below) Other Hematologic History: blood clot Immunologic History: Reports: None Oncologic (Cancer) History: Reports: None Dermatologic History: Reports: None - Infectious Disease History Infectious Disease History: Reports: Chicken Pox, Measles, Mumps - Past Surgical History Other HEENT Surgeries/Procedures: wear glasses, upper and lower dentures Social & Family History - Family History Family Medical History: No Pertinent Family History - Caffeine Use Caffeine Use: Reports: Coffee ED ROS GENERAL - Review of Systems Review Of Systems: See Below Free Text/Narrative/Comment: General: No fever. Eyes: No vision problems. ENT: No sore throat. Neck: No neck stiffness. Respiratory: No shortness of breath. Cardiac: No chest pain. Gastrointestinal: No nausea, vomiting or abdominal pain. Musculoskeletal: Per HPI Neurologic: No headache. ED EXAM, GENERAL - Physical Exam Exam: See Below Free Text/Narrative:: General Appearance: No acute distress, appears comfortable HEENT: Normocephalic/atraumatic, sclera anicteric, mucous membranes moist Neck: Normal range of motion, no midline tenderness step-off or deformity Chest and Lungs: Bilateral breath sounds, clear to auscultation Cardiovascular: Regular rate and rhythm, no murmur Abdomen: Soft, non-tender Back: Normal Musculoskeletal: 5 cm V-shaped laceration along the dorsal aspect of the left middle finger no active bleeding no retained foreign body is neurovascularly intact. Equal bilateral radial and DP pulses no focal tenderness swelling or deformity of the bilateral ankles knees hips shoulders elbows and right hand Neurologic: Awake, alert, no obvious deficits, moving all extremities Psychiatric: Appropriate, cooperative ED GENERAL MEDICAL PROCEDURES - Laceration/Wound Repair Left Digit - 3rd (Middle) Progress/Comments: Laceration Repair Procedure Location: Left middle finger Length: 4.5 cm Suture size and type: 5-0 nylon Number of sutures: 8 Complexity: Simple Time out: Yes, confirmed patient, place, procedure correct Consent: Verbal Suture technique: Simple interrupted Procedure: The wound was irrigated copiously with normal saline or sterile water. Close inspection revealed no evidence for retained foreign bodies. Anesthesia was achieved using lidocaine. Sutures were placed using the above technique with approximation of the wound edges. Sterile dressing was applied to the closed wound. Complications: None Performed by: Gary Wray MD Course - Vital Signs Last Recorded V/S: Last Vital Signs Temp 97.4 F 12/26/20 06:57 Pulse 109 H 12/26/20 06:57 Resp 20 12/26/20 06:57 BP 107/59 L 12/26/20 06:57 Pulse Ox 97 12/26/20 06:57 - Orders/Labs/Meds Orders: Active Orders 24 hr Category Date Time Status Vaccines to be Administered [RC] PER UNIT ROUTINE Care 12/26/20 06:40 Active Labs: Laboratory Tests 12/26/20 Range/Units 06:13 INR 6.94 APTT 70.1 H (18.6-31.3) SEC Meds: Medications Discontinued Medications Generic Name Dose Route Start Last Admin Trade Name Freq PRN Reason Stop Dose Admin Diphtheria/Tetanus/Acell Pertussis 0.5 ml 12/26/20 06:40 Diphtheria,Pertussis(Acell),Tetanus Vaccine 0.5 Ml Syringe IM 12/26/20 06:41 .ONCE ONE Lidocaine HCl 5 ml 12/26/20 06:36 12/26/20 06:47 Lidocaine 1% 5 Ml Sdv INJECT 12/26/20 06:37 5 ml ONETIME ONE Administration Departure - Departure Time of Disposition: 07:29 Disposition: Home, Self-Care 01 Condition: Good Clinical Impression: Finger laceration, Supratherapeutic INR, Head injury - Discharge Information *PRESCRIPTION DRUG MONITORING PROGRAM REVIEWED*: Not Applicable *COPY OF PRESCRIPTION DRUG MONITORING REPORT IN PATIENT SARAH: Not Applicable Instructions: Laceration Care, Adult, Head Injury, Adult Additional Instructions: Please keep the dressing on your finger in place for the next 24 hours. After that please take the dressing down once a day to change it. You can wash your hand gently with soap starting tomorrow. Please keep the splint on to keep your finger from flexing too much as this could pop through your stitches. If you notice any worsening pain redness swelling or drainage please return to the ER. You may have some minimal bleeding early in the day today because your INR is so high. This should resolve but if it soaks through the dressing please return to the ER. The CT scan of your brain today was normal. If you develop any headache dizziness vision changes nausea or vomiting please return to the ER so that we can get another CT scan of your brain. Your Coumadin level today was far too high at 6.9. It is very important that you not take any more of your Coumadin until the Coumadin clinic tells you to restart it. Please call them and make an appointment for repeat INR in 48 hours. The following information is given to patients seen in the emergency department who are being discharged to home. This information is to outline your options for follow-up care. We provide all patients seen in our emergency department with a follow-up referral. The need for follow-up, as well as the timing and circumstances, are variable depending upon the specifics of your emergency department visit. If you don't have a primary care physician on staff, we will provide you with a referral. We always advise you to contact your personal physician following an emergency department visit to inform them of the circumstance of the visit and for follow-up with them and/or the need for any referrals to a consulting specialist. The emergency department will also refer you to a specialist when appropriate. This referral assures that you have the opportunity for follow-up care with a specialist. All of these measure are taken in an effort to provide you with optimal care, which includes your follow-up. Under all circumstances we always encourage you to contact your private chrissy robledo who remains a resource for coordinating your care. When calling for follow-up care, please make the office aware that this follow-up is from your recent emergency room visit. If for any reason you are refused follow-up, please contact the Emergency Department at and asked to speak to the emergency department charge nurse. Sepsis Event Note (ED) - Focused Exam Vital Signs: Vital Signs Temp Pulse Resp BP Pulse Ox 12/26/20 06:57 97.4 F 109 H 20 107/59 L 97 12/26/20 06:54 97.4 F 109 H 20 107/59 L 93 L - My Orders Last 24 Hours: My Active Orders 12/26/20 06:40 Vaccines to be Administered [RC] PER UNIT ROUTINE - Assessment/Plan Last 24 Hours: My Active Orders 12/26/20 06:40 Vaccines to be Administered [RC] PER UNIT ROUTINE Assessment:: 80-year-old female presents after mechanical fall. Given signs of head trauma CT scan of the brain is been ordered I believe you can clinically clear the spine chest abdomen pelvis and other extremities with the exception of the left hand. Left hand x-rays been ordered we will need to update tetanus and repair laceration as documented. INR sent as well. 0650: INR markedly elevated at 6.9. Patient without any signs of active bleeding at this time. Patient will need to hold her warfarin for 2 days and have her INR rechecked by her primary care doctor. 0730: Laceration repaired as documented without complication. Patient son at bedside briefly we discussed the elevated INR patient understands she will need to hold her Coumadin until the Coumadin clinic tells her to restart it. CT scan of the brain is normal x-rays without acute fracture. Left middle finger splinted patient will follow up with primary care for suture removal in 7 days.
[2020-12-26] MEDS ORDERED: Diphtheria,Pertussis(Acell),Tetanus Vaccine 0.5 ML Syringe IM ONE (06:40)
--- NOTE | 2020-12-26 06:54 | CT ---
INDICATION: Fall TECHNIQUE: Head CT without contrast. COMPARISON: 12/05/2020 FINDINGS: CSF spaces: Prominence of the ventricles and the sulci likely due to age related volume loss, similar to prior. Brain parenchyma: Periventricular and subcortical white matter hypoattenuation is non specific but likely due to chronic small vessel ischemic changes, similar to prior. No sign of mass, hemorrhage, or midline shift. Skull base and calvarium: The visualized paranasal sinuses and mastoid air cells demonstrate no acute or significant findings. The visualized orbits are grossly unremarkable. No skull fractures. Small left frontal scalp hematoma. IMPRESSION: Small left frontal scalp hematoma otherwise no acute intracranial abnormality. Please note that all CT scans at this facility use dose modulation, iterative reconstruction, and/or weight-based dosing when appropriate to reduce radiation dose to as low as reasonably achievable. Dictated by Bebeto Gabriel MD @ 12/26/2020 6:52:[address] Bebeto Gabriel @ Dec 26 2020 6:52AM
--- NOTE | 2020-12-26 07:08 | CR ---
INDICATION: Fall. Pain. COMPARISON: None. TECHNIQUE: Left hand 3 views. FINDINGS: No acute fracture. Alignment is within normal limits. Bones are demineralized. Scattered degenerative changes most pronounced at the 1st CMC joint. IMPRESSION: No acute osseous abnormality. Degenerative changes most pronounced at the 1st CMC articulation. Dictated by Bebeto Gabriel MD @ 12/26/2020 7:07:[address] Bebeto Gabriel @ Dec 26 2020 7:07AM
[2020-12-26] MEDS ORDERED: Bacitracin Oint 1 GM U/D Packet TOP ONE (08:16)
[2020-12-26 09:01] VITALS: BP 127/65; PULSE 100
== END 2020-12-26 08:45 | disposition home or self-care (01) ==
LOC: MW.ED 06:00
DX: S61.213A Laceration without foreign body of left middle finger without damage to nail, initial encounter (principal); S09.90XA Unspecified injury of head, initial encounter; R79.1 Abnormal coagulation profile; E03.9 Hypothyroidism, unspecified; I50.9 Heart failure, unspecified; Z79.01 Long term (current) use of anticoagulants; Z88.8 Allergy status to other drugs, medicaments and biological substances; Z23 Encounter for immunization; W01.198A Fall on same level from slipping, tripping and stumbling with subsequent striking against other object, initial encounter; Y92.002 Bathroom of unspecified non-institutional (private) residence as the place of occurrence of the external cause
CPT/HCPCS: 12002; 36415; 70450; 70450-26; 73130-26-LT; 73130-LT; 82947; 85610; 85730; 90471; 90715; 99283; 99284-25

== ENCOUNTER 2020-12-26 09:42 | Emergency (ER) | payer MEDICARE, BC ==
[2020-12-26 10:21] LABS: BLOOD UREA NITROGEN,BUN 24 mg/dL (7.0-18.0); CARBON DIOXIDE,CO2 27.6 mmol/L (21.0-32.0); CHLORIDE,CL 100 mmol/L (98-107); GLUCOSE RANDOM 126 mg/dL (74-106); POTASSIUM,K 3.5 mmol/L (3.5-5.1); SODIUM,NA 138 mmol/L (136-145)
[2020-12-26] MEDS ORDERED: Ondansetron 4 MG/2 ML SDV IVPUSH ONE (10:22)
--- NOTE | 2020-12-26 10:26 | CR ---
INDICATION: Syncope TECHNIQUE: Chest 1 view Comparison: 12/14/2020 Findings: Cardiac silhouette size is within normal limits. Aorta is tortuous, unchanged. No focal lung consolidation, pleural effusion or pneumothorax. Impression: No acute cardiopulmonary abnormality. Dictated by Bebeto Gabriel MD @ 12/26/2020 10:26:[address] Bebeto Gabriel @ Dec 26 2020 10:26AM
[2020-12-26] MEDS ORDERED: Diltiazem 25 MG/5 ML SDV IVPUSH ONE (11:44)
[2020-12-26] MEDS ORDERED: Sodium Chloride 0.9% 500 ML IV SCH (11:45)
[2020-12-26] MEDS ORDERED: Phytonadione 10 MG in Sodium Chloride 0.9% 50 ML IV ONE ×2 (11:48→12:30)
--- NOTE | 2020-12-26 12:00 | EDM.PDOC ---
ED HPI GENERAL MEDICAL PROBLEM - General Chief Complaint: General Stated Complaint: CODE - Related Data Allergies Allergy/AdvReac Type Severity Reaction Status Date / Time NSAIDS (Non-Steroidal Allergy Other Verified 12/10/20 08:28 Anti-Inflamma Home Meds: Home Meds ALPRAZolam [Xanax XR] 1 mg PO DAILY PRN 10/19/17 [History] Calcium Carbonate [Calcium] 600 mg PO BID 10/19/17 [History] Cholecalciferol (Vitamin D3) [Vitamin D] 1,000 unit PO DAILY 10/19/17 [History] Furosemide 40 mg PO BID 10/19/17 [History] Levothyroxine [Synthroid] 100 mcg PO ACBREAKFAST 10/19/17 [History] Primidone 150 mg PO BEDTIME 10/19/17 [History] Warfarin [Coumadin] 5 mg PO SUTUTHSA 10/19/17 [History] carvediloL [Carvedilol] 3.125 mg PO BID 10/19/17 [History] Gabapentin [Neurontin] 300 mg PO BID 08/29/19 [History] Potassium Chloride [Klor-Con M20] 20 meq PO BID 08/30/19 [History] rOPINIRole [Requip] 0.5 mg PO BEDTIME 08/30/19 [History] Rosuvastatin Calcium 20 mg PO BEDTIME 12/05/20 [History] traMADol [Ultram] 50 mg PO TID PRN 12/05/20 [History] Warfarin [Coumadin] 2.5 mg PO MOWEFR 12/06/20 [History] Acetaminophen [Tylenol Extra Strength] 500 mg PO Q4H PRN tablet 12/08/20 [Rx] cephALEXin [Keflex] 250 mg PO Q6H 4 Days #16 cap 12/08/20 [Rx] Ferrous Sulfate 325 mg PO BIDMEALS #30 tablet 12/17/20 [Rx] Furosemide [Lasix] 40 mg PO BID 30 Days tablet 12/17/20 [Rx] Potassium Chloride [Klor-Con M20] 40 meq PO BID tab.er 12/17/20 [Rx] Warfarin Dosing [Coumadin Ask] 1 each PO DAILY@1400 tablet 12/17/20 [Rx] Warfarin [Coumadin] 2.5 mg PO DAILY@1400 tablet 12/17/20 [Rx] Past Medical History HEENT History: Reports: Cataract Cardiovascular History: Reports: Blood Clots/VTE/DVT, Heart Failure Respiratory History: Reports: PE Gastrointestinal History: Reports: None Genitourinary History: Reports: None 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 Neurological History: Reports: None Psychiatric History: Reports: None Endocrine/Metabolic History: Reports: Hypothyroidism Hematologic History: Reports: Other (See Below) Other Hematologic History: blood clot Immunologic History: Reports: None Oncologic (Cancer) History: Reports: None Dermatologic History: Reports: None - Infectious Disease History Infectious Disease History: Reports: Chicken Pox, Measles, Mumps - Past Surgical History Head Surgeries/Procedures: Reports: None HEENT Surgical History: Reports: Cataract Surgery Other HEENT Surgeries/Procedures: wear glasses, upper and lower dentures Cardiovascular Surgical History: Reports: Other (See Below) Other Cardiovascular Surgeries/Procedures: filter Respiratory Surgical History: Reports: Thoracentesis GI Surgical History: Reports: Appendectomy, Bariatric Procedure, Cholecystectomy, Other (See Below) Other GI Surgeries/Procedures: gastric bypass Female Surgical History: Reports: Hysterectomy Musculoskeletal Surgical History: Reports: Hip Replacement, Knee Replacement Other Musculoskeletal Surgeries/Procedures:: left hip and bilat knee Oncologic Surgical History: Reports: None Social & Family History - Family History Family Medical History: No Pertinent Family History - Caffeine Use Caffeine Use: Reports: Coffee - Recreational Drug Use Recreational Drug Use: No Course - Vital Signs Last Recorded V/S: Last Vital Signs Temp 36.6 C 12/26/20 09:59 Pulse 128 H 12/26/20 09:59 Resp BP 104/74 12/26/20 09:59 Pulse Ox 100 12/26/20 09:59 - Orders/Labs/Meds Orders: Active Orders 24 hr Category Date Time Status Cardiac Monitoring [RC] . DIRECTED Care 12/26/20 09:48 Active EKG 12 Lead [EKG Documentation Completion] [RC] STAT Care 12/26/20 09:50 Active EKG 12 Lead [EKG Documentation Completion] [RC] STAT Care 12/26/20 11:22 Active Pulse Oximetry [RC] ASDIRECTED Care 12/26/20 09:48 Active Verify Patient Consent Obtain [RC] ASDIRECTED Care 12/26/20 10:23 Active Abdomen Pelvis w Cont [CT] Stat Exams 12/26/20 10:20 Taken Head wo Cont [CT] Stat Exams 06/16/21 10:20 Taken RED BLOOD CELLS LP [BBK] Stat Lab 12/26/20 10:23 Ordered TYPE AND SCREEN [BBK] Stat Lab 12/26/20 10:23 Ordered Phytonadione [AquaMephyton] 10 mg Med 12/26/20 11:48 Active Sodium Chloride 0.9% [Normal Saline] 50 ml IV NOW Sodium Chloride 0.9% [Normal Saline] 500 ml Med 12/26/20 11:45 Active IV .BOLUS Transfuse Red Blood Cells [COMM] Stat Oth 12/26/20 10:23 Ordered Medication Orders Sodium Chloride (Normal Saline) 500 mls @ 500 mls/hr IV .BOLUS JAZMIN Last Admin: 12/26/20 11:52 Dose: 500 mls/hr Documented by: SETH Phytonadione 10 mg/ Sodium (Chloride) 51 mls @ 100 mls/hr IV NOW ONE Stop: 12/26/20 12:18 Labs: Laboratory Tests 12/26/20 12/26/20 12/26/20 Range/Units 09:40 09:40 10:38 WBC 10.46 (4.0-11.0) K/uL RBC 2.90 L (4.30-5.90) M/uL Hgb 7.8 L (12.0-16.0) g/dL Hct 25.3 L (36.0-46.0) % MCV 87.2 (80.0-98.0) fL MCH 26.9 L (27.0-32.0) pg MCHC 30.8 L (31.0-37.0) g/dL RDW Std Deviation 60.2 (28.0-62.0) fl RDW Coeff of Sebastien 19 H (11.0-15.0) % Plt Count 391 (150-400) K/uL MPV 9.50 (7.40-12.00) fL Neut % (Auto) 63.1 (48.0-80.0) % Lymph % (Auto) 29.3 (16.0-40.0) % [place] % (Auto) 6.9 (0.0-15.0) % Eos % (Auto) 0.4 (0.0-7.0) % Baso % (Auto) 0.3 (0.0-1.5) % Neut # (Auto) 6.6 H (1.4-5.7) K/uL Lymph # (Auto) 3.1 H (0.6-2.4) K/uL [place] # (Auto) 0.7 (0.0-0.8) K/uL Eos # (Auto) 0.0 (0.0-0.7) K/uL Baso # (Auto) 0.0 (0.0-0.1) K/uL Nucleated RBC % 0.0 /100WBC Nucleated RBCs # 0 K/uL INR 7.46 H* Sodium 138 (136-145) mmol/L Potassium 3.5 (3.5-5.1) mmol/L Chloride 100 (98-107) mmol/L Carbon Dioxide 27.6 (21.0-32.0) mmol/L BUN 24 H (7.0-18.0) mg/dL Creatinine 1.1 H (0.6-1.0) mg/dL Est Cr Clr Drug Dosing TNP Estimated GFR (MDRD) 47.6 ml/min Glucose 126 H (74-106) mg/dL Calcium 9.5 (8.5-10.1) mg/dL Magnesium 1.8 (1.8-2.4) mg/dL Total Bilirubin 0.3 (0.2-1.0) mg/dL AST 23 (15-37) IU/L ALT 21 (14-63) IU/L Alkaline Phosphatase 102 (46-116) U/L Creatine Kinase 29 (26-308) U/L Troponin I < 0.050 (0.000-0.056) ng/mL Total Protein 6.3 L (6.4-8.2) g/dL Albumin 2.2 L (3.4-5.0) g/dL Globulin 4.1 H (2.6-4.0) g/dL Albumin/Globulin Ratio 0.5 L (0.9-1.6) Meds: Medications Generic Name Dose Route Start Last Admin Trade Name Freq PRN Reason Stop Dose Admin Sodium Chloride 500 mls @ 500 mls/hr 12/26/20 11:45 12/26/20 11:52 Normal Saline IV 500 mls/hr .BOLUS JAZMIN Administration Phytonadione 10 mg/ Sodium 51 mls @ 100 mls/hr 12/26/20 11:48 Chloride IV 12/26/20 12:18 NOW ONE Discontinued Medications Generic Name Dose Route Start Last Admin Trade Name Carrollq PRN Reason Stop Dose Admin Diltiazem HCl 15 mg 12/26/20 11:44 12/26/20 11:52 Diltiazem 25 Mg/5 Ml Sdv IVPUSH 12/26/20 11:45 15 mg ONETIME ONE Administration Ondansetron HCl 4 mg 12/26/20 10:22 12/26/20 10:36 Ondansetron 4 Mg/2 Ml Sdv IVPUSH 12/26/20 10:23 4 mg ONETIME ONE Administration Departure - Discharge Information Sepsis Event Note (ED) - Evaluation Sepsis Screening Result: No Definite Risk - Focused Exam Vital Signs: Vital Signs Temp Pulse BP Pulse Ox 12/26/20 09:59 36.6 C 128 H 104/74 100
--- NOTE | 2020-12-26 12:16 | CT ---
INDICATION: Recent fall. TECHNIQUE: CT head without contrast. COMPARISON: Prior CT head dated 12/26/2020. FINDINGS: Brain: No intra-axial or extra-axial mass. Normal ahuja-white matter differentiation. No acute hemorrhage. No midline shift. Ventricles and CSF spaces: Within normal limits for age. Skull base and calvarium: The visualized paranasal sinuses and mastoid air cells demonstrate no acute or significant findings. No cerebellar tonsillar herniation. The visualized orbits are grossly unremarkable. No skull fractures. Stable small left frontal scalp hematoma. Well-circumscribed lytic lesion in the C2 vertebral body, with evidence of cortical disruption posteriorly. Adjacent heterotopic ossification is present, with no evidence of cord compression. IMPRESSION: 1. Stable small left frontal scalp hematoma. 2. Possible pathologic fracture of a nonaggressive appearing lesion in the C2 vertebral body, no evidence of cord compression. Recommend follow-up with dedicated CT of the cervical spine. Please note that all CT scans at this facility use dose modulation, iterative reconstruction, and/or weight-based dosing when appropriate to reduce radiation dose to as low as reasonably achievable. Dictated by Kun Velasco MD @ 12/26/2020 12:15:[address] Kun Velasco @ [place] 2020 12:15PM
--- NOTE | 2020-12-26 12:39 | CT ---
INDICATION: Query gastrointestinal bleed. TECHNIQUE: CT abdomen and pelvis acquired with 100 cc Isovue IV contrast. COMPARISON: CTA chest/abdomen/pelvis dated 12/09/2020, CT abdomen/pelvis dated. FINDINGS: Lower chest: Limited evaluation secondary to motion artifact, no large consolidation. Liver: No suspicious focal hepatic lesion. Gallbladder and bile ducts: Gallbladder appears surgically absent. Prominence of the biliary ducts is likely secondary to post cholecystectomy state. Pancreas: Mild fatty atrophy. No significant pancreatic ductal dilatation. Spleen: Small splenule is noted. Adrenal glands: Adreniform thickening of the left adrenal gland may be secondary to hyperplasia or small adrenal adenomas. Unremarkable appearance of the right adrenal gland. Kidneys: Kidneys enhance symmetrically, without hydronephrosis. Multiple too small to characterize hypodense renal lesions are present bilaterally. Retroperitoneum: No lymphadenopathy. Bowel and mesentery: Bowel is nonobstructed. Small irregular collection of hyperdense material is present within the proximal transverse colon (series 202, image 102). Otherwise, no large intraluminal contrast collection is identified within the visualized bowel. Perigastric postsurgical changes are noted. Bladder: Unremarkable for degree of distension. Reproductive organs: Uterus appears surgically absent. Pelvic lymph nodes: No lymphadenopathy. Vessels: Infrarenal IVC filter is noted. Abdominal wall: No acute abdominal wall abnormality. Bones: Diffuse osteopenia with multilevel degenerative changes of the visualized thoracolumbar spine. Left hip arthroplasty. IMPRESSION: Small irregular collection of hyperdense material within the proximal transverse colon is nonspecific, may reflect subtle active hemorrhage versus hyperdense fecal material. Given clinical suspicion for GI bleed, consider further evaluation with dedicated nuclear medicine GI bleed study. Please note that all CT scans at this facility use dose modulation, iterative reconstruction, and/or weight-based dosing when appropriate to reduce radiation dose to as low as reasonably achievable. Dictated by Kun Velasco MD @ 12/26/2020 12:36:[address] Kun Velasco @ Dec 26 2020 12:36PM
[2020-12-26] MEDS ORDERED: Iopamidol 755 MG/ML 500 ML Multipack Bottle IVPUSH STA (12:55)
[2020-12-26] MEDS ORDERED: Magnesium Sulfate (4.06 MEQ/ML) 5 GM/10 ML SDV IV STA (13:08)
[2020-12-26] MEDS ORDERED: Magnesium Sulfate/Water 4 GM/100 ML BAG IV ONE (13:15)
--- NOTE | 2020-12-26 13:54 | EDM.PDOC ---
ED HPI GENERAL MEDICAL PROBLEM - General Chief Complaint: General Stated Complaint: CODE Time Seen by Provider: 12/26/20 09:59 - History of Present Illness INITIAL COMMENTS - FREE TEXT/NARRATIVE: PATIENT IS DNR/DNI. CONFIRMED WITH PATIENT AND PATIENTS SON MISHA @ [phone] CHIEF COMPLAINT(S): Syncopal episode HISTORY OF PRESENT ILLNESS: This is a 80-year-old with a past medical history of CHF, history of DVT/PE on warfarin, hypertension, hypothyroidism who was recently evaluated in the emergency department today after mechanical fall who was found to have a supratherapeutic INR with a left finger laceration status p ost suture repair who is being discharged presents to the emergency department with a syncopal episode. At this time the patient does not have any complaints. She denies any headache, blurry vision, nausea, vomiting, chest pain, shortness of breath. She denies any abdominal pain, melena, hematochezia, hematemesis or bilious emesis. REVIEW OF SYSTEMS: Constitutional: Denies fever, chills. Eyes: Denies eye pain Ears, Nose, Mouth, & Throat: Denies earache Cardiovascular: Positive for syncopal episode denies chest pain Respiratory: Denies shortness of breath Gastrointestinal: Denies Nausea, vomiting, diarrhea, hematochezia, melena, hematemesis, bilious emesis, abdominal pain Genitourinary: Denies hematuria Skin:Denies a rash MSK: Denies joint pain Neurological: Denies blurred vision, headache Psychiatric: Denies depression PAST MEDICAL HISTORY: As per history of present illness and as reviewed below otherwise noncontributory. SURGICAL HISTORY: As per history of present illness and as reviewed below otherwise noncontributory. SOCIAL HISTORY: As per history of present illness and as reviewed below otherwise noncontributory. FAMILY HISTORY: As per history of present illness and as reviewed below otherwise noncontributory. EXAMINATION OF ORGAN SYSTEMS/BODY AREAS: Constitutional: Blood pressure was 104/74, heart rate 128, respiratory rate 12 with an oxygen saturation of 100% via 3 L nasal cannula. General: Elderly woman who is in no acute distress. Psychiatric: Appropriate mood and affect. Eyes: No scleral icterus or conjunctival erythema pupils were 2 mm and reactive bilaterally. ENMT: Moist mucous membranes. No pharyngeal erythema no blood in the oropharynx. Cardiovascular: Tachycardic but regular. No gallops, murmurs, or rubs. Bilateral upper extremity pulses symmetric and intact. No peripheral edema. No JVD. Respiratory: Lungs clear to auscultation bilaterally. No wheezes, rales, or rhonchi. Patient is speaking in full sentences. Gastrointestinal: Soft, non-tender, non-distended. Normoactive bowel sounds Genitourinary: No suprapubic tenderness Musculoskeletal: Normal range of motion. Skin: There is an abrasion to the patient's left forehead and left face without any active bleeding. There is a recent suture repair to the patient's left finger. No active bleeding. Neurological: Alert and oriented x3. GCS of 15. Strength and sensation grossly intact in upper and lower extremities bilaterally MEDICAL DECISION MAKING AND COURSE IN THE ED WITH INTERPRETATION/REVIEW OF DIAGNOSTIC STUDIES: This is a 80-year-old with a past medical history of CHF, history of DVT/PE on warfarin, hypertension, hypothyroidism who was recently evaluated in the emergency department today after mechanical fall who was found to have a supratherapeutic INR with a left finger laceration status post suture repair who is being discharged who upon discharge needed to have a bowel movement and had a vasovagal episode where the patient became apneic but did have pulses centrally. We did move the patient to the bed and laid her flat and did provide [id number] ventilation. After approximately 60 seconds the patient was awake, oriented and had no complaints. phototypesetting equipment monitor did show sinus tachycardia and pulse oximetry with [id number] was 100%. We did transition the patient to nasal cannula with pulse oximetry with good waveform at 100%. We will try to titrate down the oxygen. At this time I did do a guaiac study on the stool. There was a significant amount of clots in the commode and guaiac was positive. At this time given the vasovagal episodes I did obtain an EKG which did not reveal any acute signs of ischemia. Will obtain a chest x-ray, repeat CT head and a CT abdomen pelvis with contrast given the suspicion for GI bleed. We will repeat the patient's labs including CBC, CMP, troponin, CPK and obtain a repeat INR. The pads were placed on the patient and connected to the monitor. On review of the record the patient's INR was 6.94 with a hemoglobin of 9.3 which was up from prior on 12/18/2020 at 7.7. Laboratory: CBC reveals a normocytic anemia with a hemoglobin of 7.8 and hematocrit of 25.3 otherwise unremarkable this hemoglobin is decreased from 9.3 yesterday.. CMP reveals elevated BUN at 24 and creatinine of 1.1, hyperglycemia at 126, hypoalbuminemia at 2.2. Troponin is negative. CPK is 29. Repeat INR 7.46 up from 6.94. The patient upon discharge was to follow-up in infusion clinic for a blood transfusion as she has had a history of anemia. The patient does not know the cause of this anemia. This is complicated by the fact that she has antibodies and requires a specific type of blood to be sent from [place]. We do have 1 unit available and we will transfuse at this time. Therefore we did send a type and screen and there will be a delay of approximately 1 to 2 hours while a type and screen for the blood that we have here at [facility] emergency department. I did speak with the blood bank and they will order 2 more units from [place]. Consent was obtained and placed in chart. After returning from CT the patient was tachycardic in the 150s to 160s. We did obtain a repeat EKG at this time which did reveal atrial fibrillation with RVR. Her blood pressure was 109/67 at this time. At this time I did elect to provide the patient with 15 mg of IV Cardizem and a 500 cc bolus. The patient's labs did reveal a magnesium of 1.8 and given that magnesium can be used for atrial fibrillation I did provide the patient with 2 g of IV magnesium. I do believe the patient is experiencing atrial fibrillation secondary to acute blood loss anemia. The radiological images were viewed by myself along with reading the report from the radiologist. Chest x-ray does not reveal any acute cardiopulmonary process. CT head without contrast does not reveal any acute intracranial abnormality. There is suggestion of a possible pathologic fracture of a nonaggressive appearing lesion in the C2 vertebral body. No evidence of cord compression. CT abdomen pelvis with IV contrast reveals a hyperdensity in the transverse colon which is nonspecific but may reflect a subtle active hemorrhage versus hyperdense fecal material. After labs and imaging the patient's heart rate had improved and her blood pressure remained stable. I did have a discussion with the patient at this time that given her history of clots and the new onset atrial fibrillation which do require anticoagulation but having also a GI bleed at this time with the son at bedside we did elect to provide her with vitamin K for reversal. At this time I did have a discussion with them regarding transfer. They stated they would like to remain in [place]. Therefore I contacted our general surgeon Dr. Ontiveros and Dr. Shah our hospitalist who stated he would come and speak with the patient to come up with a plan. I did order a CT cervical spine place the patient in a cervical collar. Patient's son Misha and patient at bedside did have a discussion with general surgeon and hospitalist and myself. At this time given the complexity of her case and no availability of specialist here at our hospital they do recommend transfer. The patient and son at bedside were amenable to this plan. Therefore I contacted [facility] in [place] and spoke with Dr. Cortez who accepted the patient for transfer. We did contact flight crew and they will be here in 15 minutes. While awaiting for flight the patient needed to have another bowel movement. After this bowel movement the patient had an additional episode of vasovagal syncope. We did place the patient flat on the bed patient continued to have a pulse and was provided oxygen and the patient awoke and was in no acute distress after approximately 60 seconds. Given her recurrent vasovagal syncope I do believe we will have to forego the CT cervical spine and it can be obtained at outside facility. The patient was amenable to this plan. DISPOSITION: The patient was transferred to [facility] in [place] in stable condition CONDITION: Serious PROCEDURES: Cardiac monitoring interpretation, pulse oximetry interpretation FINAL IMPRESSION(S)/DIAGNOSES: 1. Acute blood loss anemia secondary to GI bleed secondary to supratherapeutic INR 2. Acute vasovagal syncope 3. Acute new onset atrial fibrillation with RVR 4. Acute supratherapeutic INR secondary to warfarin 5. Acute kidney injury 6. History of DVT/PE 7. History of CHF Critical Care Procedure Note Authorized and performed by: Memo Gómez M.D. Critical Care Time: 120 minutes Due to a high probability of clinically significant, life threatening deterioration, the patient required my highest level of preparedness to intervene emergently and I personally spent this critical care time directly and personally managing the patient. This critical care time included obtaining a history, examining the patient, pulse oximetry; ordering and review of studies; arranging urgent treatment with development of a management plan; evaluation of a patients response to treatment; frequent assessment; and discussions with other providers. This critical care time was performed to assess and manage the high probability of imminent, life threatening deterioration that could result in multiorgan failure. It was exclusive of separate billable procedures and treating other patients. Please see MDM section and rest of the note for further information on patient assessment and treatment. Please see MDM section and rest of the note for further information on patient assessment and treatment. Memo Gómez M.D. - Related Data Allergies Allergy/AdvReac Type Severity Reaction Status Date / Time NSAIDS (Non-Steroidal Allergy Other Verified 12/10/20 08:28 Anti-Inflamma Home Meds: Home Meds ALPRAZolam [Xanax XR] 1 mg PO DAILY PRN 10/19/17 [History] Calcium Carbonate [Calcium] 600 mg PO BID 10/19/17 [History] Cholecalciferol (Vitamin D3) [Vitamin D] 1,000 unit PO DAILY 10/19/17 [History] Furosemide 40 mg PO BID 10/19/17 [History] Levothyroxine [Synthroid] 100 mcg PO ACBREAKFAST 10/19/17 [History] Primidone 150 mg PO BEDTIME 10/19/17 [History] Warfarin [Coumadin] 5 mg PO SUTUTHSA 10/19/17 [History] carvediloL [Carvedilol] 3.125 mg PO BID 10/19/17 [History] Gabapentin [Neurontin] 300 mg PO BID 08/29/19 [History] Potassium Chloride [Klor-Con M20] 20 meq PO BID 08/30/19 [History] rOPINIRole [Requip] 0.5 mg PO BEDTIME 08/30/19 [History] Rosuvastatin Calcium 20 mg PO BEDTIME 12/05/20 [History] traMADol [Ultram] 50 mg PO TID PRN 12/05/20 [History] Warfarin [Coumadin] 2.5 mg PO MOWEFR 12/06/20 [History] Acetaminophen [Tylenol Extra Strength] 500 mg PO Q4H PRN tablet 12/08/20 [Rx] cephALEXin [Keflex] 250 mg PO Q6H 4 Days #16 cap 12/08/20 [Rx] Ferrous Sulfate 325 mg PO BIDMEALS #30 tablet 12/17/20 [Rx] Furosemide [Lasix] 40 mg PO BID 30 Days tablet 12/17/20 [Rx] Potassium Chloride [Klor-Con M20] 40 meq PO BID tab.er 12/17/20 [Rx] Warfarin Dosing [Coumadin Ask] 1 each PO DAILY@1400 tablet 12/17/20 [Rx] Warfarin [Coumadin] 2.5 mg PO DAILY@1400 tablet 12/17/20 [Rx] Past Medical History HEENT History: Reports: Cataract Cardiovascular History: Reports: Blood Clots/VTE/DVT, Heart Failure Respiratory History: Reports: PE Gastrointestinal History: Reports: None Genitourinary History: Reports: None [employer] History: Reports: None Neurological History: Reports: None Psychiatric History: Reports: None Endocrine/Metabolic History: Reports: Hypothyroidism Hematologic History: Reports: Other (See Below) Other Hematologic History: blood clot Immunologic History: Reports: None Oncologic (Cancer) History: Reports: None Dermatologic History: Reports: None - Infectious Disease History Infectious Disease History: Reports: Chicken Pox, Measles, Mumps - Past Surgical History Head Surgeries/Procedures: Reports: None HEENT Surgical History: Reports: Cataract Surgery Other HEENT Surgeries/Procedures: wear glasses, upper and lower dentures Cardiovascular Surgical History: Reports: Other (See Below) Other Cardiovascular Surgeries/Procedures: filter Respiratory Surgical History: Reports: Thoracentesis GI Surgical History: Reports: Appendectomy, Bariatric Procedure, Cholecystectomy, Other (See Below) Other GI Surgeries/Procedures: gastric bypass Female Surgical History: Reports: Hysterectomy Musculoskeletal Surgical History: Reports: Hip Replacement, Knee Replacement Other Musculoskeletal Surgeries/Procedures:: left hip and bilat knee Oncologic Surgical History: Reports: None Social & Family History - Family History Family Medical History: No Pertinent Family History - Caffeine Use Caffeine Use: Reports: Coffee - Recreational Drug Use Recreational Drug Use: No ED ROS GENERAL - Review of Systems Review Of Systems: See Below ED EXAM, GENERAL - Physical Exam Exam: See Below Course - Vital Signs Last Recorded V/S: Last Vital Signs Temp 36.6 C 12/26/20 09:59 Pulse 123 H 12/26/20 11:58 Resp BP 99/55 L 12/26/20 11:58 Pulse Ox 94 L 12/26/20 11:58 - Orders/Labs/Meds Orders: Active Orders 24 hr Category Date Time Status Cardiac Monitoring [RC] . DIRECTED Care 12/26/20 09:48 Active EKG 12 Lead [EKG Documentation Completion] [RC] STAT Care 12/26/20 09:50 Active EKG 12 Lead [EKG Documentation Completion] [RC] STAT Care 12/26/20 11:22 Active Notify Provider Consults [RC] ASDIRECTED Care 12/26/20 12:31 Active Pulse Oximetry [RC] ASDIRECTED Care 12/26/20 09:48 Active Verify Patient Consent Obtain [RC] ASDIRECTED Care 12/26/20 10:23 Active Consult to Physician [CONS] Stat Cons 12/26/20 12:30 Active ANTIBODY IDENTIFICATION [BBK] Stat Lab 12/26/20 09:40 Results RED BLOOD CELLS LP [BBK] Stat Lab 12/26/20 09:40 Results TYPE AND SCREEN [BBK] Stat Lab 12/26/20 09:40 Results Magnesium Sulfate/Water [Magnesium Sulfate in Water 4 Med 12/26/20 13:15 Active GM/100 ML] 4 gm in 100 ml IV ONETIME Sodium Chloride 0.9% [Normal Saline] 500 ml Med 12/26/20 11:45 Active IV .BOLUS Transfuse Red Blood Cells [COMM] Stat Oth 12/26/20 10:23 Ordered Medication Orders Sodium Chloride (Normal Saline) 500 mls @ 500 mls/hr IV .BOLUS JAZMIN Last Admin: 12/26/20 11:52 Dose: 500 mls/hr Documented by: SETH Magnesium Sulfate (Magnesium Sulfate In Water 4 Gm/100 Ml) 4 gm in 100 mls @ 33.333 mls/hr IV ONETIME ONE Stop: 12/26/20 16:14 Labs: Laboratory Tests 12/26/20 12/26/20 12/26/20 Range/Units 09:40 09:40 09:40 WBC 10.46 (4.0-11.0) K/uL RBC 2.90 L (4.30-5.90) M/uL Hgb 7.8 L (12.0-16.0) g/dL Hct 25.3 L (36.0-46.0) % MCV 87.2 (80.0-98.0) fL MCH 26.9 L (27.0-32.0) pg MCHC 30.8 L (31.0-37.0) g/dL RDW Std Deviation 60.2 (28.0-62.0) fl RDW Coeff of Sebastien 19 H (11.0-15.0) % Plt Count 391 (150-400) K/uL MPV 9.50 (7.40-12.00) fL Neut % (Auto) 63.1 (48.0-80.0) % Lymph % (Auto) 29.3 (16.0-40.0) % Martin % (Auto) 6.9 (0.0-15.0) % Eos % (Auto) 0.4 (0.0-7.0) % Baso % (Auto) 0.3 (0.0-1.5) % Neut # (Auto) 6.6 H (1.4-5.7) K/uL Lymph # (Auto) 3.1 H (0.6-2.4) K/uL Martin # (Auto) 0.7 (0.0-0.8) K/uL Eos # (Auto) 0.0 (0.0-0.7) K/uL Baso # (Auto) 0.0 (0.0-0.1) K/uL Nucleated RBC % 0.0 /100WBC Nucleated RBCs # 0 K/uL INR Sodium 138 (136-145) mmol/L Potassium 3.5 (3.5-5.1) mmol/L Chloride 100 (98-107) mmol/L Carbon Dioxide 27.6 (21.0-32.0) mmol/L BUN 24 H (7.0-18.0) mg/dL Creatinine 1.1 H (0.6-1.0) mg/dL Est Cr Clr Drug Dosing TNP Estimated GFR (MDRD) 47.6 ml/min Glucose 126 H (74-106) mg/dL Calcium 9.5 (8.5-10.1) mg/dL Magnesium 1.8 (1.8-2.4) mg/dL Total Bilirubin 0.3 (0.2-1.0) mg/dL AST 23 (15-37) IU/L ALT 21 (14-63) IU/L Alkaline Phosphatase 102 (46-116) U/L Creatine Kinase 29 (26-308) U/L Troponin I < 0.050 (0.000-0.056) ng/mL Total Protein 6.3 L (6.4-8.2) g/dL Albumin 2.2 L (3.4-5.0) g/dL Globulin 4.1 H (2.6-4.0) g/dL Albumin/Globulin Ratio 0.5 L (0.9-1.6) Blood Type O NEGATIVE Antibody Screen POSITIVE Antibody Identification Anti-D Crossmatch See Detail 12/26/20 Range/Units 10:38 WBC (4.0-11.0) K/uL RBC (4.30-5.90) M/uL Hgb (12.0-16.0) g/dL Hct (36.0-46.0) % MCV (80.0-98.0) fL MCH (27.0-32.0) pg MCHC (31.0-37.0) g/dL RDW Std Deviation (28.0-62.0) fl RDW Coeff of Sebastien (11.0-15.0) % Plt Count (150-400) K/uL MPV (7.40-12.00) fL Neut % (Auto) (48.0-80.0) % Lymph % (Auto) (16.0-40.0) % Martin % (Auto) (0.0-15.0) % Eos % (Auto) (0.0-7.0) % Baso % (Auto) (0.0-1.5) % Neut # (Auto) (1.4-5.7) K/uL Lymph # (Auto) (0.6-2.4) K/uL Martin # (Auto) (0.0-0.8) K/uL Eos # (Auto) (0.0-0.7) K/uL Baso # (Auto) (0.0-0.1) K/uL Nucleated RBC % /100WBC Nucleated RBCs # K/uL INR 7.46 H* Sodium (136-145) mmol/L Potassium (3.5-5.1) mmol/L Chloride (98-107) mmol/L Carbon Dioxide (21.0-32.0) mmol/L BUN (7.0-18.0) mg/dL Creatinine (0.6-1.0) mg/dL Est Cr Clr Drug Dosing Estimated GFR (MDRD) ml/min Glucose (74-106) mg/dL Calcium (8.5-10.1) mg/dL Magnesium (1.8-2.4) mg/dL Total Bilirubin (0.2-1.0) mg/dL AST (15-37) IU/L ALT (14-63) IU/L Alkaline Phosphatase (46-116) U/L Creatine Kinase (26-308) U/L Troponin I (0.000-0.056) ng/mL Total Protein (6.4-8.2) g/dL Albumin (3.4-5.0) g/dL Globulin (2.6-4.0) g/dL Albumin/Globulin Ratio (0.9-1.6) Blood Type Antibody Screen Antibody Identification Crossmatch Meds: Medications Generic Name Dose Route Start Last Admin Trade Name Rossana PRN Reason Stop Dose Admin Sodium Chloride 500 mls @ 500 mls/hr 12/26/20 11:45 12/26/20 11:52 Normal Saline IV 500 mls/hr .BOLUS JAZMIN Administration Magnesium Sulfate 4 gm in 100 mls @ 33.333 mls/hr 12/26/20 13:15 Magnesium Sulfate In Water 4 Gm/100 Ml IV 12/26/20 16:14 ONETIME ONE Discontinued Medications Generic Name Dose Route Start Last Admin Trade Name Rossana PRN Reason Stop Dose Admin Diltiazem HCl 15 mg 12/26/20 11:44 12/26/20 11:52 Diltiazem 25 Mg/5 Ml Sdv IVPUSH 12/26/20 11:45 15 mg ONETIME ONE Administration Phytonadione 10 mg/ Sodium 51 mls @ 100 mls/hr 12/26/20 11:48 Chloride IV 12/26/20 12:18 NOW ONE Phytonadione 10 mg/ Sodium 51 mls @ 100 mls/hr 12/26/20 12:30 12/26/20 12:39 Chloride IV 12/26/20 13:00 100 mls/hr NOW ONE Administration Iopamidol 100 ml 12/26/20 12:55 12/26/20 12:58 Iopamidol 755 Mg/Ml 500 Ml Multipack Bottle IVPUSH 12/26/20 12:56 100 ml ONETIME STA Administration Ondansetron HCl 4 mg 12/26/20 10:22 12/26/20 10:36 Ondansetron 4 Mg/2 Ml Sdv IVPUSH 12/26/20 10:23 4 mg ONETIME ONE Administration Departure - Departure Time of Disposition: 13:53 Disposition: DC/Tfer to Acute Hospital 02 Condition: Serious Clinical Impression: Acute blood loss anemia, Acute GI bleeding, Atrial fibrillation, Supratherapeutic INR - Discharge Information Referrals: Kp Garcia MD [Primary Care Provider] - Forms: ED Department Discharge Sepsis Event Note (ED) - Evaluation Sepsis Screening Result: No Definite Risk - Focused Exam Vital Signs: Vital Signs Temp Pulse BP Pulse Ox 12/26/20 11:58 123 H 99/55 L 94 L 12/26/20 11:41 126 H 100/62 98 12/26/20 11:26 144 H 109/67 98 12/26/20 11:11 114 H 120/67 98 12/26/20 09:59 36.6 C 128 H 104/74 100 - My Orders Last 24 Hours: My Active Orders 12/26/20 09:40 ANTIBODY IDENTIFICATION [BBK] Stat RED BLOOD CELLS LP [BBK] Stat TYPE AND SCREEN [BBK] Stat 12/26/20 09:48 Cardiac Monitoring [RC] . DIRECTED Pulse Oximetry [RC] ASDIRECTED 12/26/20 09:50 EKG 12 Lead [EKG Documentation Completion] [RC] STAT 12/26/20 10:23 Verify Patient Consent Obtain [RC] ASDIRECTED Transfuse Red Blood Cells [COMM] Stat 12/26/20 11:22 EKG 12 Lead [EKG Documentation Completion] [RC] STAT 12/26/20 11:45 Sodium Chloride 0.9% [Normal Saline] 500 ml IV .BOLUS 12/26/20 12:30 Consult to Physician [CONS] Stat 12/26/20 12:31 Notify Provider Consults [RC] ASDIRECTED - Assessment/Plan Last 24 Hours: My Active Orders 12/26/20 09:40 ANTIBODY IDENTIFICATION [BBK] Stat RED BLOOD CELLS LP [BBK] Stat TYPE AND SCREEN [BBK] Stat 12/26/20 09:48 Cardiac Monitoring [RC] . DIRECTED Pulse Oximetry [RC] ASDIRECTED 12/26/20 09:50 EKG 12 Lead [EKG Documentation Completion] [RC] STAT 12/26/20 10:23 Verify Patient Consent Obtain [RC] ASDIRECTED Transfuse Red Blood Cells [COMM] Stat 12/26/20 11:22 EKG 12 Lead [EKG Documentation Completion] [RC] STAT 12/26/20 11:45 Sodium Chloride 0.9% [Normal Saline] 500 ml IV .BOLUS 12/26/20 12:30 Consult to Physician [CONS] Stat 12/26/20 12:31 Notify Provider Consults [RC] ASDIRECTED
--- NOTE | 2020-12-26 14:16 | PCM.EKG ---
#1 Interpretation EKG Date: 12/26/20 Time: 09:40 Rhythm: NSR Rate (Beats/Min): 115 [place]: Normal P-Wave: Present QRS: Normal ST-T: Normal QT: Normal Comparison: No Change (12/09/20) EKG Interpretation Comments: Sinus Tachycardia
--- NOTE | 2020-12-26 14:18 | PCM.EKG ---
#1 Interpretation EKG Date: 12/26/20 Time: 11:23 Rhythm: NSR Rate (Beats/Min): 133 [place]: Normal P-Wave: Absent QRS: Normal ST-T: Normal QT: Normal Comparison: Change From Previous EKG (today) EKG Interpretation Comments: Atrial fibrillation with RVR
[2020-12-26 17:44] VITALS: BP 109/59; PULSE 103
== END 2020-12-26 13:56 ==
LOC: MW.ED 09:42
DX: K92.2 Gastrointestinal hemorrhage, unspecified (principal); D50.0 Iron deficiency anemia secondary to blood loss (chronic); R79.1 Abnormal coagulation profile; R55 Syncope and collapse; I48.91 Unspecified atrial fibrillation; N17.9 Acute kidney failure, unspecified; E03.9 Hypothyroidism, unspecified; I11.0 Hypertensive heart disease with heart failure; I50.9 Heart failure, unspecified; Z86.718 Personal history of other venous thrombosis and embolism; Z79.01 Long term (current) use of anticoagulants; Z79.899 Other long term (current) drug therapy; Z88.8 Allergy status to other drugs, medicaments and biological substances
CPT/HCPCS: 36415; 36430; 70450; 71045; 74177; 80053; 82550; 83735; 84484; 85025; 85610; 86850; 86900; 86901; 86920; 86921; 86922; 93005; 96365; 96375; 99285; J2405; J3430; J3490; J7040; P9016; Q9967; 12002; 73130-26-LT; 73130-LT; 82947; 85730; 90471; 90715; 99283; 99284-25; 99291; 99292

== ENCOUNTER 2021-02-12 12:21 | Emergency (ER) | payer MEDICARE, BC ==
--- NOTE | 2021-02-12 12:28 | EDM.PDOC ---
ED HPI GENERAL MEDICAL PROBLEM - General Stated Complaint: BLOOD IN THE STOOL, INR IS HIGH Time Seen by Provider: 02/12/21 12:27 Source of Information: Reports: Patient History Limitations: Reports: No Limitations - History of Present Illness INITIAL COMMENTS - FREE TEXT/NARRATIVE: 80F PMHx CHF, history of DVT/PE on warfarin, hypertension, hypothyroidism presents for bloody stools and supratherapeutic INR. We received a call ahead from patient's home health nurse who noticed her INR was 6.4 and patient subsequently noted that she had a dark, tarry stool. Of note patient was in the emergency department 2 months ago for similar symptoms with supratherapeutic INR and found to have bloody stools. At that time she was sent to [facility] for further work-up. Patient notes that she had an endoscopy and they never did find a source of bleeding. Patient states that she has been taking 5 mg of warfarin daily. She states this morning she noted a dark, tarry stool. This is the first time she has seen this since her last hospitalization. She also notes that she developed abdominal pain which was diffuse and worsened midepigastrium and accompanied by an episode of nonbloody emesis. She is only had one episode of emesis no longer feels abdominal pain or nausea. She did not see any blood or coffee grounds material in the emesis. She has not had a bowel movement since the dark tarry stool. She was initially feeling some generalized weakness, however, she currently denies feeling weak, denies chest pain or shortness of breath. Patient is DNR/DNI but she is willing to undergo further testing including surgical procedures abd Pain Score (Numeric/FACES): 4 - Related Data Allergies Allergy/AdvReac Type Severity Reaction Status Date / Time NSAIDS (Non-Steroidal Allergy Other Verified 02/12/21 13:04 Anti-Inflamma Home Meds: Home Meds ALPRAZolam [Xanax XR] 1 mg PO DAILY PRN 10/19/17 [History] Calcium Carbonate [Calcium] 600 mg PO BID 10/19/17 [History] Cholecalciferol (Vitamin D3) [Vitamin D] 1,000 unit PO DAILY 10/19/17 [History] Furosemide 40 mg PO BID 10/19/17 [History] Levothyroxine [Synthroid] 100 mcg PO ACBREAKFAST 10/19/17 [History] Primidone 150 mg PO BEDTIME 10/19/17 [History] Warfarin [Coumadin] 5 mg PO DAILY@1400 10/19/17 [History] carvediloL [Carvedilol] 3.125 mg PO BID 10/19/17 [History] Gabapentin [Neurontin] 300 mg PO BID 08/29/19 [History] Potassium Chloride [Klor-Con M20] 20 meq PO BID 08/30/19 [History] rOPINIRole [Requip] 0.5 mg PO BEDTIME 08/30/19 [History] Rosuvastatin Calcium 20 mg PO BEDTIME 12/05/20 [History] Ferrous Sulfate 325 mg PO BIDMEALS #30 tablet 12/17/20 [Rx] Acetaminophen [Tylenol Extra Strength] 500 mg PO Q4H PRN 02/12/21 [History] Cyanocobalamin (Vitamin B-12) [Cyanocobalamin Injection] 1,000 mcg IM ASDIRECTED 02/12/21 [History] Past Medical History HEENT History: Reports: Cataract Cardiovascular History: Reports: Blood Clots/VTE/DVT, Heart Failure Respiratory History: Reports: PE Gastrointestinal History: Reports: None Genitourinary History: Reports: None CLIENT DEVELOPMENT MANAGER History: Reports: None Neurological History: Reports: None Psychiatric History: Reports: None Endocrine/Metabolic History: Reports: Hypothyroidism Hematologic History: Reports: Other (See Below) Other Hematologic History: blood clot Immunologic History: Reports: None Oncologic (Cancer) History: Reports: None Dermatologic History: Reports: None - Infectious Disease History Infectious Disease History: Reports: Chicken Pox, Measles, Mumps - Past Surgical History Head Surgeries/Procedures: Reports: None HEENT Surgical History: Reports: Cataract Surgery Other HEENT Surgeries/Procedures: wear glasses, upper and lower dentures Cardiovascular Surgical History: Reports: Other (See Below) Other Cardiovascular Surgeries/Procedures: filter Respiratory Surgical History: Reports: Thoracentesis GI Surgical History: Reports: Appendectomy, Bariatric Procedure, Cholecystectomy, Other (See Below) Other GI Surgeries/Procedures: gastric bypass Female Surgical History: Reports: Hysterectomy Musculoskeletal Surgical History: Reports: Hip Replacement, Knee Replacement Other Musculoskeletal Surgeries/Procedures:: left hip and bilat knee Oncologic Surgical History: Reports: None Social & Family History - Family History Family Medical History: No Pertinent Family History - Caffeine Use Caffeine Use: Reports: Coffee ED ROS GENERAL - Review of Systems Review Of Systems: Comprehensive ROS is negative, except as noted in HPI. ED EXAM, GENERAL - Physical Exam Exam: See Below Exam Limited By: No Limitations General Appearance: Alert, WD/WN, No Apparent Distress Ears: Hearing Grossly Normal Throat/Mouth: Normal Voice, No Airway Compromise Head: Atraumatic, Normocephalic Neck: Normal Inspection Respiratory/Chest: No Respiratory Distress, Lungs Clear, Normal Breath Sounds, No Accessory Muscle Use Cardiovascular: Normal Peripheral Pulses, Regular Rate, Rhythm, Other (symmetric b/l LE edema) GI/Abdominal: Soft, Non-Tender Extremities: Normal Inspection Neurological: Alert, Normal Cognition Psychiatric: Normal Affect, Normal Mood Skin Exam: Warm, Dry, Intact, Normal Color #1 Interpretation EKG Date: 02/12/21 Time: 13:15 Rhythm: NSR Rate (Beats/Min): 97 Nixon: Normal P-Wave: Present QRS: Normal ST-T: Normal QT: Normal MO/PQ Interval: 165 EKG Interpretation Comments: unremarkable EKG, NSR Course - Vital Signs Last Recorded V/S: Last Vital Signs Temp 97.3 F 02/12/21 12:55 Pulse 93 02/12/21 15:33 Resp 20 02/12/21 12:55 BP 98/51 L 02/12/21 16:02 Pulse Ox 95 02/12/21 16:02 - Orders/Labs/Meds Orders: Active Orders 24 hr Category Date Time Status Cardiac Monitoring [RC] . DIRECTED Care 02/12/21 12:39 Active EKG Documentation Completion [RC] STAT Care 02/12/21 12:38 Active Pulse Oximetry [RC] ASDIRECTED Care 02/12/21 12:39 Active CULTURE BLOOD [BC] Stat Lab 02/12/21 17:00 Received CULTURE BLOOD [BC] Stat Lab 02/12/21 17:10 Received REFLEX LACTIC ACID YES OR NO [CHEM] Routine Lab 02/12/21 14:01 Received Sodium Chloride 0.9% [Normal Saline] 1,000 ml Med 02/12/21 17:02 Active IV .Bolus Sodium Chloride 0.9% [Saline Flush] Med 02/12/21 12:38 Active 10 ml FLUSH ASDIRECTED PRN Sodium Chloride 0.9% [Saline Flush] Med 02/12/21 12:38 Active 2.5 ml FLUSH ASDIRECTED PRN Blood Culture x2 Reflex Set [OM.PC] Stat Oth 02/12/21 16:46 Ordered Saline Lock Insert [OM.PC] Stat Oth 02/12/21 12:39 Ordered Medication Orders Sodium Chloride (Normal Saline) 1,000 mls @ 999 mls/hr IV .Bolus ONE Stop: 02/12/21 18:02 Sodium Chloride (Sodium Chloride 0.9% 10 Ml Syringe) 10 ml FLUSH ASDIRECTED PRN PRN Reason: Keep Vein Open Last Admin: 02/12/21 13:54 Dose: 10 ml Documented by: SETH Sodium Chloride (Sodium Chloride 0.9% 2.5 Ml Syringe) 2.5 ml FLUSH ASDIRECTED PRN PRN Reason: Keep Vein Open Last Admin: 02/12/21 13:54 Dose: 2.5 ml Documented by: SETH Labs: Laboratory Tests 02/12/21 02/12/21 02/12/21 Range/Units 13:20 13:20 13:20 WBC 12.37 H (4.0-11.0) K/uL RBC 4.03 L (4.30-5.90) M/uL Hgb 11.8 L (12.0-16.0) g/dL Hct 38.2 (36.0-46.0) % MCV 94.8 (80.0-98.0) fL MCH 29.3 (27.0-32.0) pg MCHC 30.9 L (31.0-37.0) g/dL RDW Std Deviation 56.6 (28.0-62.0) fl RDW Coeff of Sebastien 16 H (11.0-15.0) % Plt Count 251 (150-400) K/uL MPV 9.30 (7.40-12.00) fL Neut % (Auto) 94.2 H (48.0-80.0) % Lymph % (Auto) 2.2 L (16.0-40.0) % [place] % (Auto) 3.5 (0.0-15.0) % Eos % (Auto) 0.1 (0.0-7.0) % Baso % (Auto) 0.0 (0.0-1.5) % Neut # (Auto) 11.7 H (1.4-5.7) K/uL Lymph # (Auto) 0.3 L (0.6-2.4) K/uL [place] # (Auto) 0.4 (0.0-0.8) K/uL Eos # (Auto) 0.0 (0.0-0.7) K/uL Baso # (Auto) 0.0 (0.0-0.1) K/uL Nucleated RBC % 0.0 /100WBC Nucleated RBCs # 0 K/uL INR 5.53 APTT 45.3 H (18.6-31.3) SEC Sodium (136-145) mmol/L Potassium (3.5-5.1) mmol/L Chloride (98-107) mmol/L Carbon Dioxide (21.0-32.0) mmol/L BUN (7.0-18.0) mg/dL Creatinine (0.6-1.0) mg/dL Est Cr Clr Drug Dosing mL/min Estimated GFR (MDRD) ml/min Glucose (74-106) mg/dL Lactic Acid 3.3 H* (0.4-2.0) mmol/L Calcium (8.5-10.1) mg/dL Magnesium (1.8-2.4) mg/dL Total Bilirubin (0.2-1.0) mg/dL AST (15-37) IU/L ALT (14-63) IU/L Alkaline Phosphatase (46-116) U/L Troponin I (0.000-0.056) ng/mL Total Protein (6.4-8.2) g/dL Albumin (3.4-5.0) g/dL Globulin (2.6-4.0) g/dL Albumin/Globulin Ratio (0.9-1.6) Urine Color Urine Appearance Urine pH (5.0-8.0) Ur Specific [place] (1.001-1.035) Urine Protein (NEGATIVE) mg/dL Urine Glucose (UA) (NEGATIVE) mg/dL Urine Ketones (NEGATIVE) mg/dL Urine Occult Blood (NEGATIVE) Urine Nitrite (NEGATIVE) Urine Bilirubin (NEGATIVE) Urine Urobilinogen (<2.0) EU/dL Ur Leukocyte Esterase (NEGATIVE) U Hyaline Cast (Auto) (0-2/LPF) Urine RBC (0-2/HPF) Urine WBC (0-5/HPF) Ur Epithelial Cells (NONE-FEW) Urine Bacteria (NEGATIVE) Urine Mucus (NONE-MOD) 02/12/21 02/12/21 Range/Units 13:20 14:32 WBC (4.0-11.0) K/uL RBC (4.30-5.90) M/uL Hgb (12.0-16.0) g/dL Hct (36.0-46.0) % MCV (80.0-98.0) fL MCH (27.0-32.0) pg MCHC (31.0-37.0) g/dL RDW Std Deviation (28.0-62.0) fl RDW Coeff of Sebastien (11.0-15.0) % Plt Count (150-400) K/uL MPV (7.40-12.00) fL Neut % (Auto) (48.0-80.0) % Lymph % (Auto) (16.0-40.0) % [place] % (Auto) (0.0-15.0) % Eos % (Auto) (0.0-7.0) % Baso % (Auto) (0.0-1.5) % Neut # (Auto) (1.4-5.7) K/uL Lymph # (Auto) (0.6-2.4) K/uL [place] # (Auto) (0.0-0.8) K/uL Eos # (Auto) (0.0-0.7) K/uL Baso # (Auto) (0.0-0.1) K/uL Nucleated RBC % /100WBC Nucleated RBCs # K/uL INR APTT (18.6-31.3) SEC Sodium 143 (136-145) mmol/L Potassium 3.8 (3.5-5.1) mmol/L Chloride 106 (98-107) mmol/L Carbon Dioxide 24.2 (21.0-32.0) mmol/L BUN 9 (7.0-18.0) mg/dL Creatinine 0.8 (0.6-1.0) mg/dL Est Cr Clr Drug Dosing 50.75 mL/min Estimated GFR (MDRD) > 60.0 ml/min Glucose 128 H (74-106) mg/dL Lactic Acid (0.4-2.0) mmol/L Calcium 8.1 L (8.5-10.1) mg/dL Magnesium 1.8 (1.8-2.4) mg/dL Total Bilirubin 1.7 H (0.2-1.0) mg/dL AST 398 H (15-37) IU/L ALT 112 H (14-63) IU/L Alkaline Phosphatase 234 H (46-116) U/L Troponin I < 0.050 (0.000-0.056) ng/mL Total Protein 6.8 (6.4-8.2) g/dL Albumin 3.3 L (3.4-5.0) g/dL Globulin 3.5 (2.6-4.0) g/dL Albumin/Globulin Ratio 0.9 (0.9-1.6) Urine Color DARK YELLOW Urine Appearance CLEAR Urine pH 6.0 (5.0-8.0) Ur Specific [place] 1.015 (1.001-1.035) Urine Protein NEGATIVE (NEGATIVE) mg/dL Urine Glucose (UA) NEGATIVE (NEGATIVE) mg/dL Urine Ketones NEGATIVE (NEGATIVE) mg/dL Urine Occult Blood SMALL H (NEGATIVE) Urine Nitrite NEGATIVE (NEGATIVE) Urine Bilirubin NEGATIVE (NEGATIVE) Urine Urobilinogen 0.2 (<2.0) EU/dL Ur Leukocyte Esterase NEGATIVE (NEGATIVE) U Hyaline Cast (Auto) 1-3 (0-2/LPF) Urine RBC 1-3 (0-2/HPF) Urine WBC 0-2 (0-5/HPF) Ur Epithelial Cells FEW (NONE-FEW) Urine Bacteria FEW (NEGATIVE) Urine Mucus FEW (NONE-MOD) Meds: Medications Generic Name Dose Route Start Last Admin Trade Name Freq PRN Reason Stop Dose Admin Sodium Chloride 1,000 mls @ 999 mls/hr 02/12/21 17:02 Normal Saline IV 02/12/21 18:02 .Bolus ONE Sodium Chloride 10 ml 02/12/21 12:38 02/12/21 13:54 Sodium Chloride 0.9% 10 Ml Syringe FLUSH 10 ml ASDIRECTED PRN Administration Keep Vein Open Sodium Chloride 2.5 ml 02/12/21 12:38 02/12/21 13:54 Sodium Chloride 0.9% 2.5 Ml Syringe FLUSH 2.5 ml ASDIRECTED PRN Administration Keep Vein Open Discontinued Medications Generic Name Dose Route Start Last Admin Trade Name Freq PRN Reason Stop Dose Admin Sodium Chloride 1,000 mls @ 999 mls/hr 02/12/21 13:10 02/12/21 13:53 Normal Saline IV 02/12/21 14:10 999 mls/hr .Bolus ONE Administration Pantoprazole Sodium 80 mg/ 10 mls @ 300 mls/hr 02/12/21 13:10 02/12/21 13:53 Sodium Chloride IV 02/12/21 13:11 300 mls/hr NOW ONE Administration Phytonadione 5 mg/ Sodium 50.5 mls @ 100 mls/hr 02/12/21 14:29 02/12/21 15:28 Chloride IV 02/12/21 14:59 100 mls/hr NOW ONE Administration Piperacillin Sod/Tazobactam 50 mls @ 100 mls/hr 02/12/21 16:45 Sod 3.375 gm/ Sodium Chloride IV 02/12/21 17:14 ONETIME ONE - Re-Assessments/Exams Free Text/Narrative Re-Assessment/Exam: 02/12/21 13:50 Rectal exam reveals brown stool which is guaiac positive. No bright red blood per rectum. Will give vitamin K 5mg 02/12/21 14:05 Blood pressure stable but low at 109/49; lactate is elevated, continue IVFB, will assess for signs of mesenteric ischemia or infectious process with CT A/P (patient with difficult IV access and will not be able to get a CTA), concern for sepsis is lower considering no infectious symptoms, no fever. Will however continue to look for source of infection and treat if indicated. 02/12/21 16:46 Patient is feeling well without complaints. Her CT is concerning for choledocholithiasis. This in conjunction with elevated bilirubin and LFTs warrants transfer for GI evaluation. 02/12/21 17:18 Reached out to [facility] who does not have beds valiable. Reached out to [facility] in [place] and Dr. Ludin GEORGES agrees to accept with Dr. Val BHARDWAJ who will follow Departure - Departure Time of Disposition: 17:17 Disposition: DC/Tfer to Acute Hospital 02 Condition: Fair Clinical Impression: Choledocholithiasis, Supratherapeutic INR GIB (gastrointestinal bleeding) Qualifiers: GI bleed type/associated pathology: unspecified gastrointestinal hemorrhage type Qualified Code(s): K92.2 - Gastrointestinal hemorrhage, unspecified - Discharge Information Referrals: Kp Garcia MD [Primary Care Provider] - Critical Care Note - Critical Care Note Total Time (mins): 35 Sepsis Event Note (ED) - Focused Exam Vital Signs: Vital Signs Temp Pulse Resp BP Pulse Ox 02/12/21 16:02 98/51 L 95 02/12/21 15:33 93 95/57 L 95 02/12/21 14:59 122/63 02/12/21 14:29 86 112/55 L 97 02/12/21 13:59 89 109/49 L 98 02/12/21 12:55 97.3 F 109 H 20 113/40 L 100 - My Orders Last 24 Hours: My Active Orders 02/12/21 12:38 EKG Documentation Completion [RC] STAT Sodium Chloride 0.9% [Saline Flush] 10 ml FLUSH ASDIRECTED PRN Sodium Chloride 0.9% [Saline Flush] 2.5 ml FLUSH ASDIRECTED PRN 02/12/21 12:39 Cardiac Monitoring [RC] . DIRECTED Pulse Oximetry [RC] ASDIRECTED Saline Lock Insert [OM.PC] Stat 02/12/21 14:01 REFLEX LACTIC ACID YES OR NO [CHEM] Routine 02/12/21 16:46 Blood Culture x2 Reflex Set [OM.PC] Stat 02/12/21 17:00 CULTURE BLOOD [BC] Stat 02/12/21 17:02 Sodium Chloride 0.9% [Normal Saline] 1,000 ml IV .Bolus 02/12/21 17:10 CULTURE BLOOD [BC] Stat - Assessment/Plan Last 24 Hours: My Active Orders 02/12/21 12:38 EKG Documentation Completion [RC] STAT Sodium Chloride 0.9% [Saline Flush] 10 ml FLUSH ASDIRECTED PRN Sodium Chloride 0.9% [Saline Flush] 2.5 ml FLUSH ASDIRECTED PRN 02/12/21 12:39 Cardiac Monitoring [RC] . DIRECTED Pulse Oximetry [RC] ASDIRECTED Saline Lock Insert [OM.PC] Stat 02/12/21 14:01 REFLEX LACTIC ACID YES OR NO [CHEM] Routine 02/12/21 16:46 Blood Culture x2 Reflex Set [OM.PC] Stat 02/12/21 17:00 CULTURE BLOOD [BC] Stat 02/12/21 17:02 Sodium Chloride 0.9% [Normal Saline] 1,000 ml IV .Bolus 02/12/21 17:10 CULTURE BLOOD [BC] Stat
[2021-02-12] MEDS ORDERED: Sodium Chloride 0.9% 10 ML Syringe FLUSH PRN (12:38)
[2021-02-12] MEDS ORDERED: Sodium Chloride 0.9% 2.5 ML Syringe FLUSH PRN (12:38)
[2021-02-12] MEDS ORDERED: Pantoprazole 80 MG in Sodium Chloride 0.9% 10 ML IV ONE (13:10)
[2021-02-12] MEDS ORDERED: Sodium Chloride 0.9% 1,000 ML IV ONE ×2 (13:10→17:02)
[2021-02-12 14:07] LABS: BLOOD UREA NITROGEN,BUN 9 mg/dL (7.0-18.0); CARBON DIOXIDE,CO2 24.2 mmol/L (21.0-32.0); CHLORIDE,CL 106 mmol/L (98-107); GLUCOSE RANDOM 128 mg/dL (74-106); POTASSIUM,K 3.8 mmol/L (3.5-5.1); SODIUM,NA 143 mmol/L (136-145)
[2021-02-12] MEDS ORDERED: Phytonadione 5 MG in Sodium Chloride 0.9% 50 ML IV ONE (14:29)
--- NOTE | 2021-02-12 16:31 | CT ---
INDICATION: Dark, tarry stool, nausea and vomiting and mid epigastric pain. TECHNIQUE: Axial images were obtained from the diaphragm to the pubic symphysis. Reformats were obtained in the coronal and sagittal plane. IV Contrast: 75 cc Isovue 370 Oral Contrast: None COMPARISON: Abdomen and pelvis CT 12/26/2020 FINDINGS: Lower chest: Basilar discoid atelectasis. Liver: Calcification in the liver consistent with old granulomatous disease. Gallbladder and bile ducts: Minimal amorphous density in the gallbladder fossa, either markedly contracted gallbladder or trees fluid in the gallbladder fossa. Prominent ductal dilatation with intra extrahepatic biliary dilatation with the common duct measuring up to 19 millimeters irregular soft tissue density at the level of the distal common duct (series 206, image 51; series 201, image 81). Spleen: Unremarkable. Normal in size without mass. Pancreas: Mild pancreatic atrophy. Adrenal glands: Right adrenal gland poorly seen. Somewhat irregular thickening of the left adrenal gland although similar to the prior exam. Kidneys: No hydronephrosis. Exophytic cyst anterior aspect of the right kidney. Vasculature: Inferior vena cava filter present. No abdominal aortic aneurysm. GI tract: Status post gastric surgery, likely part of a gastrojejunostomy. No evidence of bowel obstruction with prominent colonic diverticulosis noted. Pelvis: Status posthysterectomy. Bladder unremarkable. Bones: Left gluteal and iliopsoas atrophy with the patient status post left total hip replacement. 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 IMPRESSION: 1. Increased dilatation of the extrahepatic common duct and intrahepatic biliary tree with soft tissue intraluminal density within the distal common duct suspicious for noncalcified choledocholithiasis. 2. Colonic diverticulosis without ben diverticulitis. 3. Gallbladder not well seen with some ill-defined soft tissue density in this region, and possibly markedly contracted gallbladder versus small fluid in the gallbladder fossa. 4. Other incidental findings as detailed above. Please note that all CT scans at this facility use dose modulation, iterative reconstruction, and/or weight-based dosing when appropriate to reduce radiation dose to as low as reasonably achievable. Dictated by Luc Sierra MD @ 02/12/2021 4:29:[address] Luc Sierra @ Feb 12 2021 4:29PM
[2021-02-12] MEDS ORDERED: Piperacillin/Tazobactam 3.375 GM in Sodium Chloride 0.9% 50 ML IV ONE (16:45)
[2021-02-12] MEDS ORDERED: Iopamidol 755 MG/ML 500 ML Multipack Bottle IVPUSH STA (18:48)
[2021-02-12 20:02] VITALS: BP 107/42; PULSE 95
== END 2021-02-12 18:32 ==
LOC: MW.ED 12:21
DX: K80.50 Calculus of bile duct without cholangitis or cholecystitis without obstruction (principal); K92.2 Gastrointestinal hemorrhage, unspecified; R79.1 Abnormal coagulation profile; I50.9 Heart failure, unspecified; E03.9 Hypothyroidism, unspecified; Z86.711 Personal history of pulmonary embolism; Z88.6 Allergy status to analgesic agent; Z79.01 Long term (current) use of anticoagulants; Z79.899 Other long term (current) drug therapy
CPT/HCPCS: 36415; 74177; 80053; 81001; 83605; 83735; 84484; 85025; 85610; 85730; 87040; 93005; 96365; 96367; 96375; 99285; C9113; J2543; J3430; J7030; Q9967

== ENCOUNTER 2021-04-06 14:06 | Emergency (ER) | payer MEDICARE, BC ==
--- NOTE | 2021-04-06 14:26 | EDM.PDOC ---
ED HPI GENERAL MEDICAL PROBLEM - General Chief Complaint: Cardiovascular Problem Stated Complaint: BREATHING DIFFICULTY Time Seen by Provider: 04/06/21 14:11 - History of Present Illness Treatments LEHR CUTTER: Reports: Other Medication(s) Other Treatments LEHR CUTTER: 2 duoneb - Related Data Allergies Allergy/AdvReac Type Severity Reaction Status Date / Time metronidazole [From Flagyl] Allergy Other Verified 04/06/21 14:14 NSAIDS (Non-Steroidal Allergy Other Verified 02/12/21 13:04 Anti-Inflamma Penicillins Allergy Other Verified 04/06/21 14:14 piperacillin [From Zosyn] Allergy Other Verified 04/06/21 14:14 tazobactam [From Zosyn] Allergy Other Verified 04/06/21 14:14 Home Meds: Home Meds ALPRAZolam [Xanax XR] 1 mg PO DAILY PRN 10/19/17 [History] Calcium Carbonate [Calcium] 600 mg PO BID 10/19/17 [History] Cholecalciferol (Vitamin D3) [Vitamin D] 1,000 unit PO DAILY 10/19/17 [History] Furosemide 40 mg PO BID 10/19/17 [History] Levothyroxine [Synthroid] 100 mcg PO ACBREAKFAST 10/19/17 [History] Primidone 150 mg PO BEDTIME 10/19/17 [History] Warfarin [Coumadin] 5 mg PO DAILY@1400 10/19/17 [History] carvediloL [Carvedilol] 3.125 mg PO BID 10/19/17 [History] Gabapentin [Neurontin] 300 mg PO BID 08/29/19 [History] Potassium Chloride [Klor-Con M20] 20 meq PO BID 08/30/19 [History] rOPINIRole [Requip] 0.5 mg PO BEDTIME 08/30/19 [History] Rosuvastatin Calcium 20 mg PO BEDTIME 12/05/20 [History] Ferrous Sulfate 325 mg PO BIDMEALS #30 tablet 12/17/20 [Rx] Acetaminophen [Tylenol Extra Strength] 500 mg PO Q4H PRN 02/12/21 [History] Cyanocobalamin (Vitamin B-12) [Cyanocobalamin Injection] 1,000 mcg IM ASDIRECTED 02/12/21 [History] Past Medical History HEENT History: Reports: Cataract Cardiovascular History: Reports: Blood Clots/VTE/DVT, Heart Failure Respiratory History: Reports: PE Gastrointestinal History: Reports: None Genitourinary History: Reports: None GUEST SERVICE AGENT History: Reports: None Neurological History: Reports: None Psychiatric History: Reports: None Endocrine/Metabolic History: Reports: Hypothyroidism Hematologic History: Reports: Other (See Below) Other Hematologic History: blood clot Immunologic History: Reports: None Oncologic (Cancer) History: Reports: None Dermatologic History: Reports: None - Infectious Disease History Infectious Disease History: Reports: Chicken Pox, Measles, Mumps - Past Surgical History Head Surgeries/Procedures: Reports: None HEENT Surgical History: Reports: Cataract Surgery Other HEENT Surgeries/Procedures: wear glasses, upper and lower dentures Cardiovascular Surgical History: Reports: Other (See Below) Other Cardiovascular Surgeries/Procedures: filter Respiratory Surgical History: Reports: Thoracentesis GI Surgical History: Reports: Appendectomy, Bariatric Procedure, Cholecystectomy, Other (See Below) Other GI Surgeries/Procedures: gastric bypass Female Surgical History: Reports: Hysterectomy Musculoskeletal Surgical History: Reports: Hip Replacement, Knee Replacement Other Musculoskeletal Surgeries/Procedures:: left hip and bilat knee Oncologic Surgical History: Reports: None Social & Family History - Family History Family Medical History: No Pertinent Family History - Tobacco Use Tobacco Use Status *Q: Former Tobacco User Used Tobacco, but Quit: Yes Month/Year Tobacco Last Used: 20 years - Caffeine Use Caffeine Use: Reports: Coffee - Recreational Drug Use Recreational Drug Use: No Course - Vital Signs Last Recorded V/S: Last Vital Signs Temp 36.0 C L 04/06/21 14:10 Pulse 93 04/06/21 14:10 Resp 18 04/06/21 14:10 BP 102/47 L 04/06/21 14:10 Pulse Ox 100 04/06/21 14:10 Departure - Departure Referrals: PCP,None [Primary Care Provider] - Sepsis Event Note (ED) - Evaluation Sepsis Screening Result: No Definite Risk - Focused Exam Vital Signs: Vital Signs Temp Pulse Resp BP Pulse Ox 04/06/21 14:10 36.0 C L 93 18 102/47 L 100
--- NOTE | 2021-04-06 14:27 | PCM.EKG ---
#1 Interpretation EKG Interpretation Comments: KG done 04/06/2021 at 2:09 PM shows a sinus rhythm with heart rate 93 and a NM of 178 QT duration [address] [place] XVIII low voltage but otherwise normal QRS ST and T except for late transition R wave in the precordium. Impression normal
[2021-04-06] MEDS ORDERED: Ondansetron 4 MG/2 ML SDV IVPUSH ONE (14:44)
[2021-04-06] MEDS ORDERED: Sodium Chloride 0.9% 500 ML IV SCH (14:45)
[2021-04-06] MEDS ORDERED: Sodium Chloride 0.9% 2.5 ML Syringe FLUSH PRN (14:46)
[2021-04-06] MEDS ORDERED: Sodium Chloride 0.9% 10 ML Syringe FLUSH PRN (14:46)
--- NOTE | 2021-04-06 15:23 | EDM.PDOC ---
ED HPI GENERAL MEDICAL PROBLEM - General Chief Complaint: Cardiovascular Problem Stated Complaint: BREATHING DIFFICULTY Time Seen by Provider: 04/06/21 14:11 Source of Information: Reports: Patient History Limitations: Reports: No Limitations - History of Present Illness INITIAL COMMENTS - FREE TEXT/NARRATIVE: HISTORY AND PHYSICAL: History of present illness: The patient is an 80-year-old female with a significant history of congestive heart failure presents to the emergency department via EMS for complaints of shortness of breath for 3 days. The patient states that she has a nonproductive cough. She also has been having nausea and not eating for over a month. Her daughter states that she has lost 30 pounds since November and has been following her primary care for this problem. She is due back Thursday to see her primary care. Patient denies fever, chest pain, headache, diarrhea, sore throat, and headache. Patient denies any fever, chills, change in vision, syncope or near syncope. Denies any chest pain, or back pain. Denies any abdominal pain, vomiting, diarrhea, constipation or dysuria. Has not noted any blood in urine or stool. In the emergency department the patient is hemodynamically stable with a pulse of 93 and a blood pressure of 103/47. The patient's SPO2 is 100% on room air. The patient is COVID-19 vaccinated this October 2020. Review of systems: As per history of present illness and below otherwise all systems reviewed and negative. Past medical history: As per history of present illness and as reviewed below otherwise noncontributory. Surgical history: As per history of present illness and as reviewed below otherwise noncontributory. Social history: See social history for further information Family history: As per history of present illness and as reviewed below otherwise noncontributory. Physical exam: General: Well developed and well nourished. Alert and orientated x 3. Nontoxic in appearance and in no acute distress. Vital signs are stable and have been reviewed by me. Nursing notes were reviewed. HEENT: Atraumatic, normocephalic, pupils equal and reactive bilaterally, negative for conjunctival pallor or scleral icterus, mucous membranes moist, TMs normal bilaterally, throat clear, neck supple, nontender, trachea midline. No drooling or trismus noted. No meningeal signs. No hot potato voice noted. Lungs: Clear to auscultation bilaterally. No wheezes, rales, or rhonchi. Chest nontender. Normal work of breathing, no accessory muscles used. Heart: S1S2, regular rate and rhythm without overt murmur, gallops, or rubs. No JVD. No peripheral edema Abdomen: Soft, nondistended, nontender. Normoactive bowel sounds. T-tube noted with green bile in collection bag. Negative for masses or costovertebral tendern ess. Skin: Intact, warm, dry. No lesions or rashes noted. Hematologic: No petechiae or purpra. Mucosa appropriate color and normal nail bed color and refill. Extremities: Atraumatic, moves all extremities per self without difficulty or deficits, negative for cords or calf pain. Neurovascular unremarkable. Neuro: Awake, alert, oriented. Cranial nerves II through XII unremarkable. Cerebellum unremarkable. Motor and sensory unremarkable throughout. Exam nonfocal. Psychiatric: Mood and affect are appropriate. Normal thought process. Answering questions appropriately. Notes: *This patient was seen and evaluated during the 2019 SARS-CoV-2 novel coronavirus pandemic period. Community viral transmission is ongoing at time of this encounter and the emergency department is operating under pandemic response procedures. Stated above the patient is an 80-year-old female with a history of heart failure presents to the emergency department with shortness of breath. Her examination was essentially benign. Her lung sounds were clear to all [place]. Upon examination she had no work of breathing. I did notice that at times her O2 sat would elevate to 100% on room air and she would have shallow respirations. The patient states the last time she felt this way she had blood clots in her lower extremities that never left her lower extremities. Patient had been put on a blood thinner but was recently, approximately 2 months, discontinued due to internal bleeding. The patient does have a T-tube after having gallstones removed. The T-tube appears to be draining green bile without difficulty. The patient's abdominal exam was benign. After examination and talking with the patient and her daughter I will order blood work along with a cardiac work-up with angio CT of the chest, and an EKG. I will give the patient a total of 500 mL of fluid due to the angio as she has congestive heart failure. We will give the patient Zofran for her nausea. The patient does not have elevated white blood cell count, however she does have 84.1 neutrophils. The patient's INR is 1.41. The patient's CMP is remarkable for a sodium of 126 and potassium of 5.5. The patient did get 500 bolus. The p atient chloride is 97, carbon dioxide 16.7, BUN 33, creatinine 1.7, glucose 115, alkaline phosphatase 149, albumin 3.3. The patient states that she feels so much better after the IV fluids. The patient was essentially dehydrated. I will not attempt more fluids with her congestive heart failure. Chest Angio CT FINDINGS: There is no pulmonary embolism in the main, lobar or segmental pulmonary arteries. Vascular calcifications. No aortic dissection. No reflux of contrast into the IVC. Internal biliary stent is present. IVC filter partially visualized. Nodularity of the left adrenal gland. No pleural or pericardial effusion. Calcified granuloma is present on the right. Calcification associated with the right hemidiaphragm. No infiltrate. No edema or pneumothorax. No suspicious lymph nodes. No fracture. The patient's urinated for a clean-catch and the urine was contaminated. A quick cath was attempted and no urine was obtained. We will allow the patient to rest and attempt another quick cath in about 30 to 40 minutes. The patient is agreeable with this. inserted 14 fr. straight catheter using aseptic technique. 500 mls clear yellow urine return. Collected sterile smaple and sent to lab. Patient voiced discomfort but tolerated well. The patient's urine was negative for any infection. The patient is sitting in her wheelchair and feels much better. The patient and her daughter are requesting to go home. I have given the patient strict instructions on signs and symptoms of when to return to the emergency department. The patient states that she has a caregiver and her kids [id number]. The patient's daughter verbalized understanding. I have talked with the patient about today's findings, in addition to providing specific details for plan of care. Reassessment at the time of disposition demonstrates that the patient is in no acute distress. The patient is stable for discharge, counseling was provided and we discussed in great detail signs and symptoms that would prompt them to return to the Emergency Department. Medication, follow up and supportive care measures were reviewed and discussed. Voices understanding and is agreeable to plan of care. Denies any further questions or concerns at this time. Diagnostics: CBC, CMP, troponin, magnesium, EKG, chest angio Therapeutics: IV fluids, Zofran Impression: Dehydration, shortness of breath Plan: 1. You were evaluated today on an emergent basis. Your complaints of shortness of breath and fatigue was evaluated with blood work which showed that you were dehydrated. You were given a 500 mL bolus due to your congestive heart failure and you and instantly started feeling better. We did do a CT of your chest to rule out a blood clot was negative. Take fluids such as Powerade or Pedialyte to get the electrolytes that you need with your congestive heart failure. Your urinalysis was negative for a urinary tract infection. Follow-up with your primary care for follow-up blood work to ensure your levels are returning to normal. If you return home and again felt short of breath and fatigue please return to the emergency room as you will need to be admitted this time. As a stated I am here tomorrow so feel free to give me a call. 2. You can alternate Tylenol and ibuprofen as needed for pain and fever management. 3. We encourage you to follow up with your primary care provider and/or r ecommended specialist in the next few days for re-evaluation and further care/management. 4. If your symptoms should worsen, new symptoms develop or any of the signs and symptoms we discussed should arise please return to the emergency room or call 911 (if needed). Definitive disposition and diagnosis as appropriate pending reevaluation and review of above. 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: Reports: Other Medication(s) Other 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: 2 duoneb - Related Data Allergies Allergy/AdvReac Type Severity Reaction Status Date / Time metronidazole [From Flagyl] Allergy Other Verified 04/06/21 14:14 NSAIDS (Non-Steroidal Allergy Other Verified 02/12/21 13:04 Anti-Inflamma Penicillins Allergy Other Verified 04/06/21 14:14 piperacillin [From Zosyn] Allergy Other Verified 04/06/21 14:14 tazobactam [From Zosyn] Allergy Other Verified 04/06/21 14:14 Home Meds: Home Meds ALPRAZolam [Xanax XR] 1 mg PO DAILY PRN 10/19/17 [History] Calcium Carbonate [Calcium] 600 mg PO BID 10/19/17 [History] Cholecalciferol (Vitamin D3) [Vitamin D] 1,000 unit PO DAILY 10/19/17 [History] Furosemide 40 mg PO BID 10/19/17 [History] Levothyroxine [Synthroid] 100 mcg PO ACBREAKFAST 10/19/17 [History] Primidone 150 mg PO BEDTIME 10/19/17 [History] Warfarin [Coumadin] 5 mg PO DAILY@1400 10/19/17 [History] carvediloL [Carvedilol] 3.125 mg PO BID 10/19/17 [History] Gabapentin [Neurontin] 300 mg PO BID 08/29/19 [History] Potassium Chloride [Klor-Con M20] 20 meq PO BID 08/30/19 [History] rOPINIRole [Requip] 0.5 mg PO BEDTIME 08/30/19 [History] Rosuvastatin Calcium 20 mg PO BEDTIME 12/05/20 [History] Ferrous Sulfate 325 mg PO BIDMEALS #30 tablet 12/17/20 [Rx] Acetaminophen [Tylenol Extra Strength] 500 mg PO Q4H PRN 02/12/21 [History] Cyanocobalamin (Vitamin B-12) [Cyanocobalamin Injection] 1,000 mcg IM ASDIRECTED 02/12/21 [History] Past Medical History HEENT History: Reports: Cataract Cardiovascular History: Reports: Blood Clots/VTE/DVT, Heart Failure Respiratory History: Reports: PE Gastrointestinal History: Reports: None Genitourinary History: Reports: None 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 Neurological History: Reports: None Psychiatric History: Reports: None Endocrine/Metabolic History: Reports: Hypothyroidism Hematologic History: Reports: Other (See Below) Other Hematologic History: blood clot Immunologic History: Reports: None Oncologic (Cancer) History: Reports: None Dermatologic History: Reports: None - Infectious Disease History Infectious Disease History: Reports: Chicken Pox, Measles, Mumps - Past Surgical History Head Surgeries/Procedures: Reports: None HEENT Surgical History: Reports: Cataract Surgery Other HEENT Surgeries/Procedures: wear glasses, upper and lower dentures Cardiovascular Surgical History: Reports: Other (See Below) Other Cardiovascular Surgeries/Procedures: filter Respiratory Surgical History: Reports: Thoracentesis GI Surgical History: Reports: Appendectomy, Bariatric Procedure, Cholecystectomy, Other (See Below) Other GI Surgeries/Procedures: gastric bypass Female Surgical History: Reports: Hysterectomy Musculoskeletal Surgical History: Reports: Hip Replacement, Knee Replacement Other Musculoskeletal Surgeries/Procedures:: left hip and bilat knee Oncologic Surgical History: Reports: None Social & Family History - Family History Family Medical History: No Pertinent Family History - Tobacco Use Tobacco Use Status *Q: Former Tobacco User Used Tobacco, but Quit: Yes Month/Year Tobacco Last Used: 20 years - Caffeine Use Caffeine Use: Reports: Coffee - Recreational Drug Use Recreational Drug Use: No ED ROS GENERAL - Review of Systems Review Of Systems: Comprehensive ROS is negative, except as noted in HPI. ED EXAM, GENERAL - Physical Exam Exam: See Below (See dictation) Course - Vital Signs Last Recorded V/S: Last Vital Signs Temp 96.8 F L 04/06/21 14:10 Pulse 82 04/06/21 19:52 Resp 18 04/06/21 19:52 BP 111/53 L 04/06/21 19:52 Pulse Ox 96 04/06/21 19:52 - Orders/Labs/Meds Labs: Laboratory Tests 04/06/21 04/06/21 04/06/21 Range/Units 14:55 14:55 14:55 WBC 9.31 (4.0-11.0) K/uL RBC 4.70 (4.30-5.90) M/uL Hgb 13.9 (12.0-16.0) g/dL Hct 42.5 (36.0-46.0) % MCV 90.4 (80.0-98.0) fL MCH 29.6 (27.0-32.0) pg MCHC 32.7 (31.0-37.0) g/dL RDW Std Deviation 51.3 (28.0-62.0) fl RDW Coeff of Sebastien 15 (11.0-15.0) % Plt Count 250 (150-400) K/uL MPV 9.80 (7.40-12.00) fL Neut % (Auto) 84.1 H (48.0-80.0) % Lymph % (Auto) 7.2 L (16.0-40.0) % [place] % (Auto) 8.4 (0.0-15.0) % Eos % (Auto) 0.1 (0.0-7.0) % Baso % (Auto) 0.2 (0.0-1.5) % Neut # (Auto) 7.8 H (1.4-5.7) K/uL Lymph # (Auto) 0.7 (0.6-2.4) K/uL [place] # (Auto) 0.8 (0.0-0.8) K/uL Eos # (Auto) 0.0 (0.0-0.7) K/uL Baso # (Auto) 0.0 (0.0-0.1) K/uL Nucleated RBC % 0.0 /100WBC Nucleated RBCs # 0 K/uL INR 1.44 Sodium 126 L (136-145) mmol/L Potassium 5.5 H (3.5-5.1) mmol/L Chloride 96 L (98-107) mmol/L Carbon Dioxide 16.7 L (21.0-32.0) mmol/L BUN 33 H (7.0-18.0) mg/dL Creatinine 1.7 H (0.6-1.0) mg/dL Est Cr Clr Drug Dosing 23.88 mL/min Estimated GFR (MDRD) 28.8 ml/min Glucose 115 H (74-106) mg/dL Calcium 9.0 (8.5-10.1) mg/dL Magnesium 1.8 (1.8-2.4) mg/dL Total Bilirubin 0.2 (0.2-1.0) mg/dL AST 24 (15-37) IU/L ALT 28 (14-63) IU/L Alkaline Phosphatase 141 H (46-116) U/L Troponin I < 0.050 (0.000-0.056) ng/mL Total Protein 7.9 (6.4-8.2) g/dL Albumin 3.3 L (3.4-5.0) g/dL Globulin 4.6 H (2.6-4.0) g/dL Albumin/Globulin Ratio 0.7 L (0.9-1.6) Urine Color Urine Appearance Urine pH (5.0-8.0) Ur Specific [place] (1.001-1.035) Urine Protein (NEGATIVE) mg/dL Urine Glucose (UA) (NEGATIVE) mg/dL Urine Ketones (NEGATIVE) mg/dL Urine Occult Blood (NEGATIVE) Urine Nitrite (NEGATIVE) Urine Bilirubin (NEGATIVE) Urine Urobilinogen (<2.0) EU/dL Ur Leukocyte Esterase (NEGATIVE) U Hyaline Cast (Auto) (0-2/LPF) Urine RBC (0-2/HPF) Urine WBC (0-5/HPF) Ur Epithelial Cells (NONE-FEW) Urine Bacteria (NEGATIVE) 04/06/21 Range/Units 18:45 WBC (4.0-11.0) K/uL RBC (4.30-5.90) M/uL Hgb (12.0-16.0) g/dL Hct (36.0-46.0) % MCV (80.0-98.0) fL MCH (27.0-32.0) pg MCHC (31.0-37.0) g/dL RDW Std Deviation (28.0-62.0) fl RDW Coeff of Sebastien (11.0-15.0) % Plt Count (150-400) K/uL MPV (7.40-12.00) fL Neut % (Auto) (48.0-80.0) % Lymph % (Auto) (16.0-40.0) % [place] % (Auto) (0.0-15.0) % Eos % (Auto) (0.0-7.0) % Baso % (Auto) (0.0-1.5) % Neut # (Auto) (1.4-5.7) K/uL Lymph # (Auto) (0.6-2.4) K/uL [place] # (Auto) (0.0-0.8) K/uL Eos # (Auto) (0.0-0.7) K/uL Baso # (Auto) (0.0-0.1) K/uL Nucleated RBC % /100WBC Nucleated RBCs # K/uL INR Sodium (136-145) mmol/L Potassium (3.5-5.1) mmol/L Chloride (98-107) mmol/L Carbon Dioxide (21.0-32.0) mmol/L BUN (7.0-18.0) mg/dL Creatinine (0.6-1.0) mg/dL Est Cr Clr Drug Dosing mL/min Estimated GFR (MDRD) ml/min Glucose (74-106) mg/dL Calcium (8.5-10.1) mg/dL Magnesium (1.8-2.4) mg/dL Total Bilirubin (0.2-1.0) mg/dL AST (15-37) IU/L ALT (14-63) IU/L Alkaline Phosphatase (46-116) U/L Troponin I (0.000-0.056) ng/mL Total Protein (6.4-8.2) g/dL Albumin (3.4-5.0) g/dL Globulin (2.6-4.0) g/dL Albumin/Globulin Ratio (0.9-1.6) Urine Color YELLOW Urine Appearance CLEAR Urine pH 5.0 (5.0-8.0) Ur Specific [place] 1.010 (1.001-1.035) Urine Protein NEGATIVE (NEGATIVE) mg/dL Urine Glucose (UA) NEGATIVE (NEGATIVE) mg/dL Urine Ketones NEGATIVE (NEGATIVE) mg/dL Urine Occult Blood SMALL H (NEGATIVE) Urine Nitrite NEGATIVE (NEGATIVE) Urine Bilirubin NEGATIVE (NEGATIVE) Urine Urobilinogen 0.2 (<2.0) EU/dL Ur Leukocyte Esterase NEGATIVE (NEGATIVE) U Hyaline Cast (Auto) 0-2 (0-2/LPF) Urine RBC 0-2 (0-2/HPF) Urine WBC 0-2 (0-5/HPF) Ur Epithelial Cells OCCASIONAL (NONE-FEW) Urine Bacteria FEW (NEGATIVE) Meds: Medications Discontinued Medications Generic Name Dose Route Start Last Admin Trade Name Freq PRN Reason Stop Dose Admin Sodium Chloride 500 mls @ 999 mls/hr 04/06/21 14:45 04/06/21 15:03 Normal Saline IV 999 mls/hr .BOLUS JAZMIN Administration Iopamidol 75 ml 04/06/21 15:50 04/06/21 15:50 Iopamidol 755 Mg/Ml 500 Ml Multipack Bottle IVPUSH 04/06/21 15:51 75 ml ONETIME ONE Administration Ondansetron HCl 4 mg 04/06/21 14:44 04/06/21 15:22 Ondansetron 4 Mg/2 Ml Sdv IVPUSH 04/06/21 14:45 4 mg ONETIME ONE Administration Sodium Chloride 10 ml 04/06/21 14:46 04/06/21 15:03 Sodium Chloride 0.9% 10 Ml Syringe FLUSH 10 ml ASDIRECTED PRN Administration Keep Vein Open Sodium Chloride 2.5 ml 04/06/21 14:46 04/06/21 15:03 Sodium Chloride 0.9% 2.5 Ml Syringe FLUSH 2.5 ml ASDIRECTED PRN Administration Keep Vein Open Departure - Departure Time of Disposition: 19:12 Disposition: Home, Self-Care 01 Condition: Good Clinical Impression: Dehydration, Shortness of breath Instructions: Shortness of Breath, Adult, [id number], Dehydration, Adult, [id number] Referrals: PCP,None [Primary Care Provider] - Forms: ED Department Discharge Additional Instructions: The following information is given to patients seen in the emergency department who are being discharged to home. This information is to outline your options for follow-up care. We provide all patients seen in our emergency department with a follow-up referral. The need for follow-up, as well as the timing and circumstances, are variable depending upon the specifics of your emergency department visit. If you don't have a primary care physician on staff, we will provide you with a referral. We always advise you to contact your personal physician following an emergency department visit to inform them of the circumstance of the visit and for follow-up with them and/or the need for any referrals to a consulting specialist. The emergency department will also refer you to a specialist when appropriate. This referral assures that you have the opportunity for follow-up care with a specialist. All of these measure are taken in an effort to provide you with optimal care, which includes your follow-up. Under all circumstances we always encourage you to contact your private physician who remains a resource for coordinating your care. When calling for follow-up care, please make the office aware that this follow-up is from your recent emergency room visit. If for any reason you are refused follow-up, please contact the [facility] Emergency Department at and asked to speak to the emergency department charge nurse. [facility] - Primary Care [address] [place] [address] [id number] [address] [id number] Plan: 1. You were evaluated today on an emergent basis. Your complaints of shortness of breath and fatigue was evaluated with blood work which showed that you were dehydrated. You were given a 500 mL bolus due to your congestive heart failure and you and instantly started feeling better. We did do a CT of your chest to rule out a blood clot was negative. Take fluids such as Powerade or Pedialyte to get the electrolytes that you need with your congestive heart failure. Your urinalysis was negative for a urinary tract infection. Follow-up with your primary care for follow-up blood work to ensure your levels are returning to normal. If you return home and again felt short of breath and fatigue please return to the emergency room as you will need to be admitted this time. As a stated I am here tomorrow so feel free to give me a call. 2. You can alternate Tylenol and ibuprofen as needed for pain and fever management. 3. We encourage you to follow up with your primary care provider and/or recommended specialist in the next few days for re-evaluation and further care/management. 4. If your symptoms should worsen, new symptoms develop or any of the signs and symptoms we discussed should arise please return to the emergency room or call 911 (if needed). Sepsis Event Note (ED) - Evaluation Sepsis Screening Result: No Definite Risk
[2021-04-06 15:28] LABS: BLOOD UREA NITROGEN,BUN 33 mg/dL (7.0-18.0); CARBON DIOXIDE,CO2 16.7 mmol/L (21.0-32.0); CHLORIDE,CL 96 mmol/L (98-107); GLUCOSE RANDOM 115 mg/dL (74-106); POTASSIUM,K 5.5 mmol/L (3.5-5.1); SODIUM,NA 126 mmol/L (136-145)
[2021-04-06] MEDS ORDERED: Iopamidol 755 MG/ML 500 ML Multipack Bottle IVPUSH ONE (15:50)
--- NOTE | 2021-04-06 16:24 | CT ---
INDICATION: Shortness of breath COMPARISON: December 09, 2020 TECHNIQUE: CT volumetric acquisition was performed of the thorax during intravenous infusion of 75 cc Isovue 370 nonionic intravenous contrast. Please note that all CT scans at this facility use dose modulation, iterative reconstruction, and/or weight-based dosing when appropriate to reduce radiation dose to as low as reasonably achievable. FINDINGS: There is no pulmonary embolism in the main, lobar or segmental pulmonary arteries. Vascular calcifications. No aortic dissection. No reflux of contrast into the IVC. Internal biliary stent is present. IVC filter partially visualized. Nodularity of the left adrenal gland. No pleural or pericardial effusion. Calcified granuloma is present on the right. Calcification associated with the right hemidiaphragm. No infiltrate. No edema or pneumothorax. No suspicious lymph nodes. No fracture. IMPRESSION: No evidence of pulmonary thromboembolism. Please note that all CT scans at this facility use dose modulation, iterative reconstruction, and/or weight-based dosing when appropriate to reduce radiation dose to as low as reasonably achievable. Dictated by Bebeto Kilgore MD @ 04/06/2021 4:23:30 PM (Electronically Signed)
[2021-04-06 20:12] VITALS: BP 111/53; PULSE 82
== END 2021-04-06 19:55 | disposition home or self-care (01) ==
LOC: MW.ED 14:06
DX: E86.0 Dehydration (principal); R06.02 Shortness of breath; I50.9 Heart failure, unspecified; E03.9 Hypothyroidism, unspecified; Z86.711 Personal history of pulmonary embolism; Z87.891 Personal history of nicotine dependence; Z88.1 Allergy status to other antibiotic agents; Z88.6 Allergy status to analgesic agent; Z88.0 Allergy status to penicillin; Z79.01 Long term (current) use of anticoagulants; Z79.899 Other long term (current) drug therapy
CPT/HCPCS: 36415; 71275; 80053; 81001; 83735; 84484; 85025; 85610; 93005; 96374; 99285; J2405; J7040; Q9967

== ENCOUNTER 2021-04-06 22:34 | Emergency (ER) | payer MEDICARE, BC ==
[2021-04-06] MEDS ORDERED: fentaNYL 50 MCG/ML SDV IVPUSH ONE (23:32)
[2021-04-06] MEDS ORDERED: Ondansetron 4 MG/2 ML SDV IVPUSH ONE (23:32)
--- NOTE | 2021-04-06 23:36 | CR ---
INDICATION: Trauma hip, fall TECHNIQUE: Pelvis radiograph, Hip radiograph 4 views left COMPARISON: 08/29/2019 FINDINGS: Bone: No acute fractures or aggressive bone lesions are identified. Posterior superior dislocation of the femoral prosthesis is noted. Severe diffuse osteopenia is noted. Joint: A left total hip arthroplasty is present. The visualized sacroiliac joints are unremarkable in appearance. The pubic symphysis is normal in appearance. Soft tissue: Unremarkable. There is a catheter partially visualized in the midline abdomen. No radiopaque foreign bodies are seen. Excreted contrast is seen within the bladder. IMPRESSION: 1. Posterior superior dislocation of the femoral prosthesis is noted. Dictated by Avi Gonzalez MD @ 04/06/2021 11:35:07 PM Dictated by: Avi Gonzalez MD @ 04/06/2021 23:35:11 (Electronically Signed)
--- NOTE | 2021-04-07 01:55 | EDM.PDOC ---
ED HPI GENERAL MEDICAL PROBLEM - General Chief Complaint: Lower Extremity Injury/Pain Stated Complaint: FELL Time Seen by Provider: 04/06/21 23:08 - History of Present Illness INITIAL COMMENTS - FREE TEXT/NARRATIVE: HISTORY AND PHYSICAL: History of present illness: This is an 80-year-old female with history significant for CHF who was recently seen and evaluated in the ED secondary to dehydration and was discharged home who presents ER today secondary to a fall. Patient reports that prior to going to sleep she realized that she had not taken her nighttime medication. She reports that while she was taking her medication her pills fell to the ground and while she was bending over to get her medications she became off balance and fell down to the ground. Patient reports she does have a history significant for a left total hip replacement performed here at [facility] approximately 10 years ago. Patient reports that she has not had any complications with her hip replacement. Patient presented to the ED today by EMS secondary to severe pain to her left hip. Patient denies any head trauma or head injury. Patient is not on any anticoagulation therapy. Patient denies any loss of consciousness. Patient denies any neck pain or discomfort. Patient denies any pain to her upper extremities chest or back. Patient reports that her pain is isolated to her left hip. Patient denies any recent fevers, shakes, chills. Patient reports that she does have no nausea or vomiting. Patient reports decreased p.o. intake over the last 24 hours but has been able to tolerate p.o. solids and liquids fairly well. Review of systems: As per history of present illness and below otherwise all systems reviewed and negative. Past medical history: As per history of present illness and as reviewed below otherwise noncontributory. Surgical history: As per history of present illness and as reviewed below otherwise noncontributory. Social history: No reported history of drug abuse. Family history: As per history of present illness and as reviewed below otherwise noncontributory. Physical exam: This patient was seen and evaluated during the 2019 SARS-CoV-2 novel coronavirus pandemic period. Community viral transmission is ongoing at time of this encounter and the emergency department is operating under pandemic response procedures. Constitutional: Patient is oriented to person, place, and time. Appears well- developed and well-nourished. No distress. HEENT: Moist mucous membranes Head: Normocephalic and atraumatic Eyes: Right eye exhibits no discharge. Left eye exhibits no discharge. No scleral icterus Neck: Normal range of motion. No tracheal deviation present. Cardiovascular: Normal rate and regular rhythm. Pulmonary: Effort normal, no respiratory distress. Abdominal: No distention Musculoskeletal: Normal range of motion Neurologic: Alert and oriented to person, place and time. Skin: [place], warm and dry. Psychiatric: Normal mood and affect. Behavior is normal. Judgment and thought content normal. Nursing note and vital signs have been reviewed Patient's ER physical exam is significant for a well-developed well-nourished 80-year-old female who does not appear to be in any acute distress. Patient has tenderness to palpation to her left hip. Patient's left lower extremity is internally rotated and flexed at the hip and knees. Patient has pain discomfort with extension of her hip. Patient has no C-spine T-spine or L-spine tenderness to palpation. Patient has no left upper or right upper quadrant tenderness to palpation. Patient has no crepitus to palpation to the anterior chest wall. Patient is neurologically intact. Patient does not present with any signs or or symptoms that would be consistent with acute intracranial, intra-abdominal, intrathoracic, or long bone injury. Except for patient's left hip, all long bones have been palpated and range of motion been performed and there is no evidence of any acute pathology. Diagnostics: Left hip x-ray: Superiorly posterior dislocated left hip prosthesis Covid test negative. Labs reviewed from earlier visit. Patient has hyponatremic. Patient was given hydration here in the ED to her last evaluation earlier today. A CTA of her chest was negative. Therapeutics: Fentanyl, Zofran Assessment and plan: This is an 80-year-old female who presents ER today secondary to pain to her left hip after a fall. Patient had no loss of consciousness, head injury or neck pain. Patient's pain is isolated to her left hip which on x-ray reveals a dislocation of her left hip prosthesis. Unfortunately we do not have orthopedic coverage here [place] at this time. I have discussed the case with Dr. Cortez at [facility] with agreed to assist us with excepting the patient for transfer so she should be further evaluated and treated for hip dislocation. I have discussed the results with the patient and her daughter and they are in agreement with the plan to be transferred to [facility] for definitive management. Definitive disposition and diagnosis as appropriate pending reevaluation and review of above. 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: Other Medication(s) Other Treatments SWITCHBOX ASSEMBLER: 50 mcg Fentanyl left hip Pain Score (Numeric/FACES): 7 - Related Data Allergies Allergy/AdvReac Type Severity Reaction Status Date / Time metronidazole [From Flagyl] Allergy Other Verified 04/06/21 14:14 NSAIDS (Non-Steroidal Allergy Other Verified 02/12/21 13:04 Anti-Inflamma Penicillins Allergy Other Verified 04/06/21 14:14 piperacillin [From Zosyn] Allergy Other Verified 04/06/21 14:14 tazobactam [From Zosyn] Allergy Other Verified 04/06/21 14:14 Home Meds: Home Meds ALPRAZolam [Xanax XR] 1 mg PO DAILY PRN 10/19/17 [History] Calcium Carbonate [Calcium] 600 mg PO BID 10/19/17 [History] Cholecalciferol (Vitamin D3) [Vitamin D] 1,000 unit PO DAILY 10/19/17 [History] Furosemide 40 mg PO BID 10/19/17 [History] Levothyroxine [Synthroid] 100 mcg PO ACBREAKFAST 10/19/17 [History] Primidone 150 mg PO BEDTIME 10/19/17 [History] Warfarin [Coumadin] 5 mg PO DAILY@1400 10/19/17 [History] carvediloL [Carvedilol] 3.125 mg PO BID 10/19/17 [History] Gabapentin [Neurontin] 300 mg PO BID 08/29/19 [History] Potassium Chloride [Klor-Con M20] 20 meq PO BID 08/30/19 [History] rOPINIRole [Requip] 0.5 mg PO BEDTIME 08/30/19 [History] Rosuvastatin Calcium 20 mg PO BEDTIME 12/05/20 [History] Ferrous Sulfate 325 mg PO BIDMEALS #30 tablet 12/17/20 [Rx] Acetaminophen [Tylenol Extra Strength] 500 mg PO Q4H PRN 02/12/21 [History] Cyanocobalamin (Vitamin B-12) [Cyanocobalamin Injection] 1,000 mcg IM ASDIRECTED 02/12/21 [History] Past Medical History HEENT History: Reports: Cataract Cardiovascular History: Reports: Blood Clots/VTE/DVT, Heart Failure Respiratory History: Reports: PE Gastrointestinal History: Reports: None Genitourinary History: Reports: None 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: 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: 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 Neurological History: Reports: None Psychiatric History: Reports: None Endocrine/Metabolic History: Reports: Hypothyroidism Hematologic History: Reports: Other (See Below) Other Hematologic History: blood clot Immunologic History: Reports: None Oncologic (Cancer) History: Reports: None Dermatologic History: Reports: None - Infectious Disease History Infectious Disease History: Reports: Chicken Pox, Measles, Mumps - Past Surgical History Head Surgeries/Procedures: Reports: None HEENT Surgical History: Reports: Cataract Surgery Other HEENT Surgeries/Procedures: wear glasses, upper and lower dentures Cardiovascular Surgical History: Reports: Other (See Below) Other Cardiovascular Surgeries/Procedures: filter Respiratory Surgical History: Reports: Thoracentesis GI Surgical History: Reports: Appendectomy, Bariatric Procedure, Cholecystectomy, Other (See Below) Other GI Surgeries/Procedures: gastric bypass Female Surgical History: Reports: Hysterectomy Musculoskeletal Surgical History: Reports: Hip Replacement, Knee Replacement Other Musculoskeletal Surgeries/Procedures:: left hip and bilat knee Oncologic Surgical History: Reports: None Social & Family History - Family History Family Medical History: No Pertinent Family History - Tobacco Use Tobacco Use Status *Q: Former Tobacco User Used Tobacco, but Quit: Yes Month/Year Tobacco Last Used: 20 - Caffeine Use Caffeine Use: Reports: Coffee - Recreational Drug Use Recreational Drug Use: No Review of Systems - Review of Systems Review Of Systems: See Below ED EXAM, GENERAL - Physical Exam Exam: See Below Course - Vital Signs Last Recorded V/S: Last Vital Signs Temp 96.8 F L 04/06/21 22:41 Pulse 95 04/07/21 00:56 Resp 16 04/07/21 00:56 BP 97/52 L 04/07/21 00:56 Pulse Ox 95 04/07/21 00:56 - Orders/Labs/Meds Labs: Laboratory Tests 04/07/21 Range/Units 00:25 SARS-CoV-2 RNA (DEISI) NEGATIVE (NEGATIVE) Meds: Medications Discontinued Medications Generic Name Dose Route Start Last Admin Trade Name Freq PRN Reason Stop Dose Admin Fentanyl 100 mcg 04/06/21 23:32 04/06/21 23:39 Fentanyl 50 Mcg/Ml Sdv IVPUSH 04/06/21 23:33 100 mcg ONETIME ONE Administration Ondansetron HCl 4 mg 04/06/21 23:32 04/06/21 23:38 Ondansetron 4 Mg/2 Ml Sdv IVPUSH 04/06/21 23:33 4 mg ONETIME ONE Administration Departure - Departure Time of Disposition: 01:54 Disposition: DC/Tfer to Acute Hospital 02 Condition: Good Clinical Impression: Hip dislocation, left Qualifiers: Encounter type: initial encounter Qualified Code(s): S73.005A - Unspecified dislocation of left hip, initial encounter - Discharge Information Referrals: Kp Garcia MD [Primary Care Provider] - Sepsis Event Note (ED) - Evaluation Sepsis Screening Result: No Definite Risk - Focused Exam Vital Signs: Vital Signs Temp Pulse Resp BP Pulse Ox 04/07/21 00:56 95 16 97/52 L 95 04/06/21 22:41 96.8 F L 71 18 127/55 L 96
[2021-04-07 02:59] VITALS: BP 112/64; PULSE 94
== END 2021-04-07 02:20 ==
LOC: MW.ED 22:34
DX: T84.021A Dislocation of internal left hip prosthesis, initial encounter (principal); I50.9 Heart failure, unspecified; E03.9 Hypothyroidism, unspecified; Z86.711 Personal history of pulmonary embolism; Z87.891 Personal history of nicotine dependence; Z88.1 Allergy status to other antibiotic agents; Z88.6 Allergy status to analgesic agent; Z88.0 Allergy status to penicillin; Z79.01 Long term (current) use of anticoagulants; Z79.899 Other long term (current) drug therapy; Z20.822 Contact with and (suspected) exposure to COVID-19; W01.0XXA Fall on same level from slipping, tripping and stumbling without subsequent striking against object, initial encounter
CPT/HCPCS: 51702; 73502; 96374; 96375; 99285; J2405; J3010; U0002

== ENCOUNTER 2021-04-16 23:34 | Emergency (ER) | payer MEDICARE, BC ==
--- NOTE | 2021-04-17 00:04 | EDM.PDOC ---
ED HPI GENERAL MEDICAL PROBLEM - General Chief Complaint: Genitourinary Problem Stated Complaint: BLOOD IN URINE Time Seen by Provider: 04/16/21 23:42 Source of Information: Reports: Patient History Limitations: Reports: No Limitations - History of Present Illness INITIAL COMMENTS - FREE TEXT/NARRATIVE: Patient is a 80-year-old female who presents today for blood in her urine. Patient was on warfarin but stopped that a week ago as she had a biliary tube placed. She denies any falls or injury to the belly. She states when she went to the bathroom she saw bright red blood in the toilet with some clots. She also reports bleeding when she wiped as well. She states she feels fatigue but her daughter at the bedside states she does not look pale she is been drinking at home had no fever chills or other complaints. - Related Data Allergies Allergy/AdvReac Type Severity Reaction Status Date / Time metronidazole [From Flagyl] Allergy Other Verified 04/06/21 14:14 NSAIDS (Non-Steroidal Allergy Other Verified 02/12/21 13:04 Anti-Inflamma Penicillins Allergy Other Verified 04/06/21 14:14 piperacillin [From Zosyn] Allergy Other Verified 04/06/21 14:14 tazobactam [From Zosyn] Allergy Other Verified 04/06/21 14:14 Home Meds: Home Meds ALPRAZolam [Xanax XR] 1 mg PO DAILY PRN 10/19/17 [History] Calcium Carbonate [Calcium] 600 mg PO BID 10/19/17 [History] Cholecalciferol (Vitamin D3) [Vitamin D] 1,000 unit PO DAILY 10/19/17 [History] Furosemide 40 mg PO BID 10/19/17 [History] Levothyroxine [Synthroid] 100 mcg PO ACBREAKFAST 10/19/17 [History] Primidone 150 mg PO BEDTIME 10/19/17 [History] Warfarin [Coumadin] 5 mg PO DAILY@1400 10/19/17 [History] carvediloL [Carvedilol] 3.125 mg PO BID 10/19/17 [History] Gabapentin [Neurontin] 300 mg PO BID 08/29/19 [History] Potassium Chloride [Klor-Con M20] 20 meq PO BID 08/30/19 [History] rOPINIRole [Requip] 0.5 mg PO BEDTIME 08/30/19 [History] Rosuvastatin Calcium 20 mg PO BEDTIME 12/05/20 [History] Ferrous Sulfate 325 mg PO BIDMEALS #30 tablet 12/17/20 [Rx] Acetaminophen [Tylenol Extra Strength] 500 mg PO Q4H PRN 02/12/21 [History] Cyanocobalamin (Vitamin B-12) [Cyanocobalamin Injection] 1,000 mcg IM ASDIRECTED 02/12/21 [History] Past Medical History HEENT History: Reports: Cataract Cardiovascular History: Reports: Blood Clots/VTE/DVT, Heart Failure Respiratory History: Reports: PE Gastrointestinal History: Reports: None Genitourinary History: Reports: None 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: 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: 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 Neurological History: Reports: None Psychiatric History: Reports: None Endocrine/Metabolic History: Reports: Hypothyroidism Hematologic History: Reports: Other (See Below) Other Hematologic History: blood clot Immunologic History: Reports: None Oncologic (Cancer) History: Reports: None Dermatologic History: Reports: None - Infectious Disease History Infectious Disease History: Reports: Chicken Pox, Measles, Mumps - Past Surgical History Head Surgeries/Procedures: Reports: None HEENT Surgical History: Reports: Cataract Surgery Other HEENT Surgeries/Procedures: wear glasses, upper and lower dentures Cardiovascular Surgical History: Reports: Other (See Below) Other Cardiovascular Surgeries/Procedures: filter Respiratory Surgical History: Reports: Thoracentesis GI Surgical History: Reports: Appendectomy, Bariatric Procedure, Cho lecystectomy, Other (See Below) Other GI Surgeries/Procedures: gastric bypass Female Surgical History: Reports: Hysterectomy Musculoskeletal Surgical History: Reports: Hip Replacement, Knee Replacement Other Musculoskeletal Surgeries/Procedures:: left hip and bilat knee Oncologic Surgical History: Reports: None Social & Family History - Family History Family Medical History: No Pertinent Family History - Tobacco Use Tobacco Use Status *Q: Never Tobacco User Second Hand Smoke Exposure: No - Caffeine Use Caffeine Use: Reports: Coffee - Recreational Drug Use Recreational Drug Use: No ED ROS GENERAL - Review of Systems Review Of Systems: See Below Constitutional: Reports: No Symptoms HEENT: Reports: No Symptoms Respiratory: Reports: No Symptoms Cardiovascular: Reports: No Symptoms Endocrine: Reports: No Symptoms GI/Abdominal: Reports: No Symptoms : Reports: Hematuria Musculoskeletal: Reports: No Symptoms Skin: Reports: No Symptoms Neurological: Reports: No Symptoms Psychiatric: Reports: No Symptoms Hematologic/Lymphatic: Reports: No Symptoms Immunologic: Reports: No Symptoms ED EXAM, RENAL/ - Physical Exam Exam: See Below Exam Limited By: No Limitations General Appearance: Alert, WD/WN, No Apparent Distress Eye Exam: Bilateral Eye: EOMI Ears: Normal External Exam Nose: Normal Inspection Throat/Mouth: Normal Inspection Head: Atraumatic, Normocephalic Neck: Normal Inspection Respiratory/Chest: No Respiratory Distress, Lungs Clear, Normal Breath Sounds Cardiovascular: Normal Peripheral Pulses, Regular Rate, Rhythm GI/Abdominal: Normal Bowel Sounds, Soft, Non-Tender, Other (Biliary tube in place right upper quadrant) Extremities: Normal Inspection Neurological: Alert, Oriented Course - Vital Signs Last Recorded V/S: Last Vital Signs Temp 95.6 F L 04/16/21 23:40 Pulse 81 04/17/21 04:00 Resp 20 04/17/21 01:30 BP 102/47 L 04/17/21 04:00 Pulse Ox 98 04/17/21 04:00 - Orders/Labs/Meds Labs: Laboratory Tests 04/17/21 04/17/21 04/17/21 Range/Units 00:50 00:50 00:50 WBC 8.57 (4.0-11.0) K/uL RBC 4.01 L (4.30-5.90) M/uL Hgb 11.6 L (12.0-16.0) g/dL Hct 36.6 (36.0-46.0) % MCV 91.3 (80.0-98.0) fL MCH 28.9 (27.0-32.0) pg MCHC 31.7 (31.0-37.0) g/dL RDW Std Deviation 52.1 (28.0-62.0) fl RDW Coeff of Sebastien 16 H (11.0-15.0) % Plt Count 293 (150-400) K/uL MPV 9.30 (7.40-12.00) fL Neut % (Auto) 71.0 (48.0-80.0) % Lymph % (Auto) 17.3 (16.0-40.0) % [place] % (Auto) 10.0 (0.0-15.0) % Eos % (Auto) 1.2 (0.0-7.0) % Baso % (Auto) 0.5 (0.0-1.5) % Neut # (Auto) 6.1 H (1.4-5.7) K/uL Lymph # (Auto) 1.5 (0.6-2.4) K/uL [place] # (Auto) 0.9 H (0.0-0.8) K/uL Eos # (Auto) 0.1 (0.0-0.7) K/uL Baso # (Auto) 0.0 (0.0-0.1) K/uL Nucleated RBC % 0.0 /100WBC Nucleated RBCs # 0 K/uL INR 1.21 APTT 28.8 (18.6-31.3) SEC Sodium 135 L (136-145) mmol/L Potassium 4.8 (3.5-5.1) mmol/L Chloride 101 (98-107) mmol/L Carbon Dioxide 20.6 L (21.0-32.0) mmol/L BUN 21 H (7.0-18.0) mg/dL Creatinine 1.1 H (0.6-1.0) mg/dL Est Cr Clr Drug Dosing TNP Estimated GFR (MDRD) 47.6 ml/min Glucose 99 (74-106) mg/dL Calcium 8.1 L (8.5-10.1) mg/dL Total Bilirubin 0.2 (0.2-1.0) mg/dL AST 41 H (15-37) IU/L ALT 40 (14-63) IU/L Alkaline Phosphatase 135 H (46-116) U/L Total Protein 6.4 (6.4-8.2) g/dL Albumin 2.8 L (3.4-5.0) g/dL Globulin 3.6 (2.6-4.0) g/dL Albumin/Globulin Ratio 0.8 L (0.9-1.6) Urine Color Urine Appearance Urine pH (5.0-8.0) Ur Specific [place] (1.001-1.035) Urine Protein (NEGATIVE) mg/dL Urine Glucose (UA) (NEGATIVE) mg/dL Urine Ketones (NEGATIVE) mg/dL Urine Occult Blood (NEGATIVE) Urine Nitrite (NEGATIVE) Urine Bilirubin (NEGATIVE) Urine Urobilinogen (<2.0) EU/dL Ur Leukocyte Esterase (NEGATIVE) Urine RBC (0-2/HPF) Urine WBC (0-5/HPF) Ur Epithelial Cells (NONE-FEW) Urine Bacteria (NEGATIVE) 04/17/21 Range/Units 01:20 WBC (4.0-11.0) K/uL RBC (4.30-5.90) M/uL Hgb (12.0-16.0) g/dL Hct (36.0-46.0) % MCV (80.0-98.0) fL MCH (27.0-32.0) pg MCHC (31.0-37.0) g/dL RDW Std Deviation (28.0-62.0) fl RDW Coeff of Sebastien (11.0-15.0) % Plt Count (150-400) K/uL MPV (7.40-12.00) fL Neut % (Auto) (48.0-80.0) % Lymph % (Auto) (16.0-40.0) % [place] % (Auto) (0.0-15.0) % Eos % (Auto) (0.0-7.0) % Baso % (Auto) (0.0-1.5) % Neut # (Auto) (1.4-5.7) K/uL Lymph # (Auto) (0.6-2.4) K/uL [place] # (Auto) (0.0-0.8) K/uL Eos # (Auto) (0.0-0.7) K/uL Baso # (Auto) (0.0-0.1) K/uL Nucleated RBC % /100WBC Nucleated RBCs # K/uL INR APTT (18.6-31.3) SEC Sodium (136-145) mmol/L Potassium (3.5-5.1) mmol/L Chloride (98-107) mmol/L Carbon Dioxide (21.0-32.0) mmol/L BUN (7.0-18.0) mg/dL Creatinine (0.6-1.0) mg/dL Est Cr Clr Drug Dosing Estimated GFR (MDRD) ml/min Glucose (74-106) mg/dL Calcium (8.5-10.1) mg/dL Total Bilirubin (0.2-1.0) mg/dL AST (15-37) IU/L ALT (14-63) IU/L Alkaline Phosphatase (46-116) U/L Total Protein (6.4-8.2) g/dL Albumin (3.4-5.0) g/dL Globulin (2.6-4.0) g/dL Albumin/Globulin Ratio (0.9-1.6) Urine Color YELLOW Urine Appearance SLT CLOUDY Urine pH 5.5 (5.0-8.0) Ur Specific [place] 1.025 (1.001-1.035) Urine Protein NEGATIVE (NEGATIVE) mg/dL Urine Glucose (UA) NEGATIVE (NEGATIVE) mg/dL Urine Ketones NEGATIVE (NEGATIVE) mg/dL Urine Occult Blood LARGE H (NEGATIVE) Urine Nitrite POSITIVE H (NEGATIVE) Urine Bilirubin NEGATIVE (NEGATIVE) Urine Urobilinogen 0.2 (<2.0) EU/dL Ur Leukocyte Esterase TRACE H (NEGATIVE) Urine RBC 1-3 (0-2/HPF) Urine WBC 4-8 (0-5/HPF) Ur Epithelial Cells FEW (NONE-FEW) Urine Bacteria 3+ H (NEGATIVE) Meds: Medications Discontinued Medications Generic Name Dose Route Start Last Admin Trade Name Carrollq PRN Reason Stop Dose Admin Ceftriaxone Sodium 1 gm/ 50 mls @ 200 mls/hr 04/17/21 01:53 Sodium Chloride IV 04/17/21 02:07 ONETIME ONE Iopamidol 75 ml 04/17/21 02:04 04/17/21 07:19 Iopamidol 755 Mg/Ml 500 Ml Multipack Bottle IVPUSH 04/17/21 02:05 75 ml ONETIME STA Administration - Re-Assessments/Exams Free Text/Narrative Re-Assessment/Exam: 04/17/21 20:58 Patient chart was finished doing downtime and patient was discharged during downtime Departure - Departure Time of Disposition: 04:00 Disposition: Home, Self-Care 01 Clinical Impression: UTI (urinary tract infection) - Discharge Information Referrals: Kp Garcia MD [Primary Care Provider] - Forms: ED Department Discharge - Assessment/Plan Plan: Patient is an 80-year-old female who presents today for blood in her urine. Patient denies any falls or injury to the abdomen. She does have a biliary tube placed as she has stones and she is been off her warfarin for the past week. We will obtain UA labs CT scan and reassess.
[2021-04-17 01:35] LABS: BLOOD UREA NITROGEN,BUN 21 mg/dL (7.0-18.0); CARBON DIOXIDE,CO2 20.6 mmol/L (21.0-32.0); CHLORIDE,CL 101 mmol/L (98-107); GLUCOSE RANDOM 99 mg/dL (74-106); POTASSIUM,K 4.8 mmol/L (3.5-5.1); SODIUM,NA 135 mmol/L (136-145)
[2021-04-17] MEDS ORDERED: cefTRIAXone 1 GM in Sodium Chloride 0.9% 50 ML IV ONE (01:53)
[2021-04-17] MEDS ORDERED: Iopamidol 755 MG/ML 500 ML Multipack Bottle IVPUSH STA (02:04)
[2021-04-17 07:20] VITALS: BP 102/47; PULSE 81
--- NOTE | 2021-04-17 10:00 | CT ---
EXAM DATE: 04/16/21 PATIENT'S AGE: 80 Patient: TOÑA TOLEDO [id number] Study: CT-Abdomen/Pelvis W CONT-04/17/2021 2:45:51 AM Ordering Physician: LAKESHIA PERERA MD Final Report: INDICATION: Hematuria and dislodged biliary tube TECHNIQUE: Axial images were obtained from the diaphragm to the pubic symphysis. Reformats were obtained in the coronal and sagittal plane. IV Contrast: 75 cc Isovue 370 Oral Contrast: None COMPARISON: Abdomen and pelvis CT 02/12/2021 FINDINGS: Lower chest: Basilar discoid atelectasis. Liver: Mild lobulation of the hepatic contour. No focal intrahepatic lesion. Gallbladder and bile ducts: The patient is status post cholecystectomy with pneumobilia. A percutaneous biliary drain is present with a coil at the level of the duodenum. Spleen: Unremarkable. Normal in size without mass. Pancreas: Faint hypodensity adjacent to the biliary drain at the head of the pancreas, poorly defined (series 201, image 67). Adrenal glands: Left adrenal nodule measuring 12 millimeters, similar to the prior exam. Kidneys: Symmetric renal enhancement without hydronephrosis. Right renal cysts. Vasculature: Status post inferior vena cava filter. Atherosclerosis without abdominal aortic aneurysm. GI tract: Status post gastric bypass. No dilated loops of large or small intestine. Colonic diverticulosis. Pelvis: Status posthysterectomy. Air within the bladder lumen. 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 Grade 1 anterolisthesis L5-S1. IMPRESSION: 1. Colonic diverticulosis without ben diverticulitis. 2. Percutaneous biliary drain with tip in normal position at the duodenum. 3. Air within the bladder lumen. Differential diagnosis includes recent instrumentation or cystitis. 4. Other incidental findings as detailed above. Please note that all CT scans at this facility use dose modulation, iterative reconstruction, and/or weight-based dosing when appropriate to reduce radiation dose to as low as reasonably achievable. Dictated by Luc Sierra MD @ 04/17/2021 3:38:34 AM Signed by: Luc Sierra MD @04/17/2021 3:38:34 AM (Electronic Signature) Report Signed by Proxy. KIM
== END 2021-04-17 04:00 | disposition home or self-care (01) ==
LOC: MW.ED 23:34
DX: N39.0 Urinary tract infection, site not specified (principal); I50.9 Heart failure, unspecified; E03.9 Hypothyroidism, unspecified; Z86.711 Personal history of pulmonary embolism; Z88.1 Allergy status to other antibiotic agents; Z88.6 Allergy status to analgesic agent; Z88.0 Allergy status to penicillin; Z79.01 Long term (current) use of anticoagulants; Z79.899 Other long term (current) drug therapy
CPT/HCPCS: 36415; 74177; 80053; 81001; 85025; 85610; 85730; 99284; Q9967

== ENCOUNTER 2021-05-24 10:47 | Emergency (ER) | payer MEDICARE, BC ==
--- NOTE | 2021-05-24 10:55 | EDM.PDOC ---
ED HPI GENERAL MEDICAL PROBLEM - General Chief Complaint: Lower Extremity Injury/Pain Stated Complaint: HIP DISLOCATED Time Seen by Provider: 05/24/21 10:49 - History of Present Illness INITIAL COMMENTS - FREE TEXT/NARRATIVE: Patient is an 80-year-old female she has a history of CHF she presents with left hip pain. Pt has a h/o left hip replacement several years ago. She had many dislocations shortly after the surgery. However, she then had a long period where they were quite infrequent. The patient last dislocated in March 2021. She was transferred up to [place] at that time. The patient sat down on a toilet this AM and felt her hip dislocate. She did not fall, pain was 8/10 prior to getting meds from EMS. Pain now minimal without movement. ROS: General: No fever. Neck: No neck stiffness. Respiratory: No shortness of breath. Cardiac: No chest pain. Gastrointestinal: No nausea, vomiting or abdominal pain. Musculoskeletal: per HPI Neurologic: No headache. left hip Pain Score (Numeric/FACES): 4 - Related Data Allergies Allergy/AdvReac Type Severity Reaction Status Date / Time metronidazole [From Flagyl] Allergy Other Verified 05/24/21 10:57 NSAIDS (Non-Steroidal Allergy Other Verified 05/24/21 10:57 Anti-Inflamma Penicillins Allergy Other Verified 05/24/21 10:57 piperacillin [From Zosyn] Allergy Other Verified 05/24/21 10:57 tazobactam [From Zosyn] Allergy Other Verified 05/24/21 10:57 Home Meds: Home Meds ALPRAZolam [Xanax XR] 1 mg PO DAILY PRN 10/19/17 [History] Calcium Carbonate [Calcium] 600 mg PO BID 10/19/17 [History] Cholecalciferol (Vitamin D3) [Vitamin D] 1,000 unit PO DAILY 10/19/17 [History] Furosemide 40 mg PO BID 10/19/17 [History] Levothyroxine [Synthroid] 100 mcg PO ACBREAKFAST 10/19/17 [History] Primidone 150 mg PO BEDTIME 10/19/17 [History] Warfarin [Coumadin] 5 mg PO DAILY@1400 10/19/17 [History] carvediloL [Carvedilol] 3.125 mg PO BID 10/19/17 [History] Gabapentin [Neurontin] 300 mg PO BID 08/29/19 [History] Potassium Chloride [Klor-Con M20] 20 meq PO BID 08/30/19 [History] rOPINIRole [Requip] 0.5 mg PO BEDTIME 08/30/19 [History] Rosuvastatin Calcium 20 mg PO BEDTIME 12/05/20 [History] Ferrous Sulfate 325 mg PO BIDMEALS #30 tablet 12/17/20 [Rx] Acetaminophen [Tylenol Extra Strength] 500 mg PO Q4H PRN 02/12/21 [History] Cyanocobalamin (Vitamin B-12) [Cyanocobalamin Injection] 1,000 mcg IM ASDIRECTED 02/12/21 [History] Past Medical History HEENT History: Reports: Cataract Cardiovascular History: Reports: Blood Clots/VTE/DVT, Heart Failure Respiratory History: Reports: PE Gastrointestinal History: Reports: None Genitourinary History: Reports: None [employer] History: Reports: None Neurological History: Reports: None Psychiatric History: Reports: None Endocrine/Metabolic History: Reports: Hypothyroidism Hematologic History: Reports: Other (See Below) Other Hematologic History: blood clot Immunologic History: Reports: None Oncologic (Cancer) History: Reports: None Dermatologic History: Reports: None - Infectious Disease History Infectious Disease History: Reports: Chicken Pox, Measles, Mumps - Past Surgical History Head Surgeries/Procedures: Reports: None HEENT Surgical History: Reports: Cataract Surgery Other HEENT Surgeries/Procedures: wear glasses, upper and lower dentures Cardiovascular Surgical History: Reports: Other (See Below) Other Cardiovascular Surgeries/Procedures: filter Respiratory Surgical History: Reports: Thoracentesis GI Surgical History: Reports: Appendectomy, Bariatric Procedure, Cholecystectomy, Other (See Below) Other GI Surgeries/Procedures: gastric bypass Female Surgical History: Reports: Hysterectomy Musculoskeletal Surgical History: Reports: Hip Replacement, Knee Replacement Other Musculoskeletal Surgeries/Procedures:: left hip and bilat knee Oncologic Surgical History: Reports: None Social & Family History - Family History Family Medical History: No Pertinent Family History - Caffeine Use Caffeine Use: Reports: Coffee Review of Systems - Review of Systems Review Of Systems: See Below ED EXAM, GENERAL - Physical Exam Exam: See Below Free Text/Narrative:: General Appearance: No acute distress, appears comfortable Skin: No rash HEENT: Normocephalic/atraumatic, sclera anicteric, mucous membranes moist Neck: Normal range of motion Chest and Lungs: Bilateral breath sounds, clear to auscultation Cardiovascular: Regular rate and rhythm Abdomen: Soft, non-tender Musculoskeletal: left hip tenderness, left leg held slightly flexed and in internal rotation. Neurologic: Awake, alert, no obvious deficits, moving all extremities Psychiatric: Appropriate, cooperative ED TRAUMA EXTREMITY PROCEDURES - Additional/Other Procedure(s) Other (Free Text) Procedure(s): Procedural sedation: After verbal consent was obtained patient was placed on the monitor including end-tidal CO2 monitoring. Patient was on continuous monitoring throughout the procedure. Patient was given 35 mg of ketamine followed by 20 mg of propofol. This led to adequate sedation. Procedure was conducted as documented below. Patient had a brief apneic episode requiring 2 breaths from a BVM. Patient had brief hypoxic episode to the mid 80s she recovered in less than 30 seconds. She had no other vital sign derangements during the procedure. I was present for the entirety of the sedation and left the room only after the patient was verbally responsive. Start Time: 1510 Stop Time: 1515 Total Time: 5 minutes Left Hip Reduction: After verbal consent had been obtained and the patient was adequately sedated as documented above standard methods of traction countertraction and gentle external and internal rotation associated with hip flexion were able to relocate the left hip. Postreduction x-ray reveals the hip has been successfully relocated. Patient tolerated procedure well without immediate complication. Course - Vital Signs Last Recorded V/S: Last Vital Signs Temp 96.9 F 05/24/21 10:59 Pulse 70 05/24/21 15:51 Resp 15 05/24/21 15:51 BP 87/47 L 05/24/21 15:51 Pulse Ox 100 05/24/21 15:51 - Orders/Labs/Meds Orders: Active Orders 24 hr Category Date Time Status DME for Discharge [COMM] Stat Oth 05/24/21 16:34 Ordered Labs: Laboratory Tests 05/24/21 Range/Units 11:00 SARS-CoV-2 RNA (DEISI) NEGATIVE (NEGATIVE) Meds: Medications Discontinued Medications Generic Name Dose Route Start Last Admin Trade Name Freq PRN Reason Stop Dose Admin Ketamine HCl Confirm 05/24/21 15:06 05/24/21 16:42 Ketamine 500 Mg/10 Ml Mdv Administered 05/24/21 15:07 Not Given Dose 500 mg .ROUTE .STK-MED ONE Ketamine HCl 35 mg 05/24/21 15:06 05/24/21 15:10 Ketamine 500 Mg/10 Ml Mdv IV 05/24/21 15:07 35 mg ONETIME ONE Administration Morphine Sulfate 4 mg 05/24/21 11:46 05/24/21 13:49 Morphine 4 Mg/Ml Vial IVPUSH 05/24/21 11:47 4 mg ONETIME ONE Administration Ondansetron HCl 4 mg 05/24/21 11:46 05/24/21 13:49 Ondansetron 4 Mg/2 Ml Sdv IVPUSH 05/24/21 11:47 4 mg ONETIME ONE Administration Propofol 35 mg 05/24/21 14:57 05/24/21 16:42 Propofol 200 Mg/20 Ml Sdv IVPUSH 05/24/21 14:58 Not Given ONETIME ONE Propofol 20 mg 05/24/21 15:26 05/24/21 15:12 Propofol 200 Mg/20 Ml Sdv IVPUSH 05/24/21 15:27 20 mg ONETIME ONE Administration Departure - Departure Time of Disposition: 17:36 Disposition: Home, Self-Care 01 Condition: Good Clinical Impression: Hip dislocation, left Qualifiers: Encounter type: initial encounter Qualified Code(s): S73.005A - Unspecified dislocation of left hip, initial encounter - Discharge Information *PRESCRIPTION DRUG MONITORING PROGRAM REVIEWED*: Not Applicable *COPY OF PRESCRIPTION DRUG MONITORING REPORT IN PATIENT SARAH: Not Applicable Instructions: Hip Dislocation Referrals: PCP,None [Primary Care Provider] - Forms: ED Department Discharge Additional Instructions: Please be careful with your hip and make slow deliberate movements. Please use the walker until you follow-up with the orthopedic surgeons. Today I spoke to Dr. Jesus Luna at . He is not their hip specialist. However, you will be able to follow-up with their hip revision specialist. Please call their office at [phone] to make an appointment. When you speak to them be sure to tell them that you were seen in the [place] [facility] ER and that I spoke to Dr. Luna about your care. The following information is given to patients seen in the emergency department who are being discharged to home. This information is to outline your options for follow-up care. We provide all patients seen in our emergency department with a follow-up referral. The need for follow-up, as well as the timing and circumstances, are variable depending upon the specifics of your emergency department visit. If you don't have a primary care physician on staff, we will provide you with a referral. We always advise you to contact your personal physician following an emergency department visit to inform them of the circumstance of the visit and for follow-up with them and/or the need for any referrals to a consulting specialist. The emergency department will also refer you to a specialist when appropriate. This referral assures that you have the opportunity for follow-up care with a specialist. All of these measure are taken in an effort to provide you with optimal care, which includes your follow-up. Under all circumstances we always encourage you to contact your private physician who remains a resource for coordinating your care. When calling for follow-up care, please make the office aware that this follow-up is from your recent emergency room visit. If for any reason you are refused follow-up, please contact the [facility] Emergency Department at and asked to speak to the emergency department charge nurse. Sepsis Event Note (ED) - Focused Exam Vital Signs: Vital Signs Temp Pulse Resp BP Pulse Ox 05/24/21 15:51 70 15 87/47 L 100 05/24/21 15:34 67 15 101/56 L 96 05/24/21 15:24 82 15 109/60 100 05/24/21 15:21 71 15 124/56 L 100 05/24/21 15:18 84 12 126/66 89 L 05/24/21 15:15 82 15 110/66 81 L 05/24/21 15:12 75 15 100/71 100 05/24/21 15:09 73 16 101/51 L 95 05/24/21 14:30 71 16 96/48 L 97 05/24/21 13:30 70 16 87/53 L 94 L 05/24/21 12:30 69 16 90/49 L 96 05/24/21 11:30 67 16 85/52 L 94 L 05/24/21 10:59 96.9 F 93 18 92/51 L 93 L - My Orders Last 24 Hours: My Active Orders 05/24/21 16:34 DME for Discharge [COMM] Stat - Assessment/Plan Last 24 Hours: My Active Orders 05/24/21 16:34 DME for Discharge [COMM] Stat Assessment:: 80yoF presenting with left hip pain and XR demonstrating a superior / posterior dislocation. At 1150 patient's pain started to worsen so morphine and zofran ordered. [facility] does not have capacity for the patient, [facility] in [place] does not have capacity either. The patient has been essentially n.p.o. since last night she is had a few sips of water this morning but otherwise nothing else. Will discuss with the on-call orthopedic surgeon in [place] are waiting for them to call back. Might be able to reduce here but would certainly need them to help guide post procedure care. Pt discussed with Dr. Hsu at . Recommends reduction in the ED. IF the patient does well after this then she could potentially go home. If not then they may have bed capacity later today. However, any hip revision surgery would wait until next week regardless. 1520: The patient was sedated as documented left hip was relocated and post reduction x-ray shows that the hip is successfully relocated. Patient will be temporarily placed in a abduction pillow. We will await full recovery from sedation and then perform gradual ambulatory trial. 1735: Patient ambulates well with a walker she is stable her hip feels good and she is felt stable for discharge. Patient will follow up with [facility].
[2021-05-24] MEDS ORDERED: Ondansetron 4 MG/2 ML SDV IVPUSH ONE (11:46)
[2021-05-24] MEDS ORDERED: Morphine 4 MG/ML VIAL IVPUSH ONE (11:46)
--- NOTE | 2021-05-24 11:54 | CR ---
Indication: Clinical dislocation of left hip Comparison: Three views left hip April 06, 2021 Technique: Single-view pelvis with AP and frogleg views left hip Findings: There is demonstration of a posterior dislocation of femoral component of a left hip arthroplasty. No other displaced fractures are appreciated. The right femoral head is seated in the acetabulum with moderate degenerative change. There is visualization of a pigtail drainage catheter within the abdomen. Otherwise nonspecific bowel gas pattern. Impression: Demonstration of dislocation of the femoral component of a left hip total arthroplasty without evidence of definite displaced fracture. Dictated by Janusz Wolf MD @ 05/24/2021 11:53:22 AM (Electronically Signed)
[2021-05-24] MEDS ORDERED: Propofol 200 MG/20 ML SDV IVPUSH ONE ×2 (14:57→15:26)
[2021-05-24] MEDS ORDERED: Ketamine HCL/NACL, ISO-OSM 50 MG/5 ML Syringe ONE (14:57)
[2021-05-24] MEDS ORDERED: Ketamine 500 mg/10 ML MDV ONE (15:06)
[2021-05-24] MEDS ORDERED: Ketamine 500 mg/10 ML MDV IV ONE (15:06)
--- NOTE | 2021-05-24 15:51 | CR ---
Indication: Hip dislocation post reduction. Technique: Left hip 1 views. Comparison: 05/24/2021. Findings/Impression: The dislocation has been successfully reduced. Left hip arthroplasty hardware and bones are now in satisfactory alignment. No fracture or other new abnormality. Dictated by Moreno Archer MD @ 05/24/2021 3:50:15 PM (Electronically Signed)
[2021-05-24 18:03] VITALS: BP 110/67; PULSE 88
== END 2021-05-24 18:04 | disposition home or self-care (01) ==
LOC: MW.ED 10:47
DX: T84.021A Dislocation of internal left hip prosthesis, initial encounter (principal); I50.9 Heart failure, unspecified; E03.9 Hypothyroidism, unspecified; Z96.642 Presence of left artificial hip joint; Z86.718 Personal history of other venous thrombosis and embolism; Z86.711 Personal history of pulmonary embolism; Z88.1 Allergy status to other antibiotic agents; Z88.6 Allergy status to analgesic agent; Z88.0 Allergy status to penicillin; Z79.01 Long term (current) use of anticoagulants; Z79.899 Other long term (current) drug therapy; Z20.822 Contact with and (suspected) exposure to COVID-19; X58.XXXA Exposure to other specified factors, initial encounter
CPT/HCPCS: 27265; 73501; 73502; 96374; 96375; 99284; J2270; J2405; J2704; U0002

== ENCOUNTER 2021-06-03 12:28 | Emergency (ER) | payer MEDICARE, BC ==
[2021-06-03 13:50] VITALS: PULSE 87
[2021-06-03] MEDS ORDERED: Morphine 4 MG/ML VIAL IVPUSH ONE (16:18)
[2021-06-03] MEDS ORDERED: Propofol 200 MG/20 ML SDV ONE (17:36)
[2021-06-03] MEDS ORDERED: fentaNYL 100 MCG/2 ML SDV ONE (17:36)
[2021-06-03] MEDS ORDERED: Ketamine 500 mg/10 ML MDV ONE (18:02)
--- NOTE | 2021-06-03 18:06 | CR ---
Indication: Left hip dislocation and pain Technique: AP view of the pelvis and cross-table lateral view of the left hip Comparison: None Findings/Impression: There is posterior superior dislocation the left femoral head prosthesis. No fracture is identified. Percutaneous drainage catheter projects over the lower abdomen. Dictated by Tom Ruiz MD @ 06/03/2021 6:03:34 PM (Electronically Signed)
--- NOTE | 2021-06-03 18:35 | CR ---
Indication: Post reduction Technique: Supine AP view of left hip at 6:16 p.m. Comparison: Pelvis and left hip radiographs 06/03/2021 at 5:07 p.m. Findings/Impression: Interval reduction of left hip dislocation. No evidence of underlying fracture. Dictated by Tom Ruiz MD @ 06/03/2021 6:34:12 PM (Electronically Signed)
--- NOTE | 2021-06-03 18:42 | PCM.SN.2 ---
- Free Text/Narrative Note: Anesthesia start: 1744 Anesthesia stop: 1819 Called to ED for procedural sedation for closed reduction of hip, patient NPO since 1000. 50 mg lidocaine, 30 mg ketamine, 20 mg propofol, 50 mcg fentanyl given. BP, HR, O2, ETCO2, stable throughout. Patient monitored following sedation, awake and answering questions. VSS
--- NOTE | 2021-06-03 19:01 | EDM.PDOC ---
ED HPI GENERAL MEDICAL PROBLEM - General Chief Complaint: Lower Extremity Injury/Pain Stated Complaint: HIP INJURY Time Seen by Provider: 06/03/21 14:59 - History of Present Illness INITIAL COMMENTS - FREE TEXT/NARRATIVE: CHIEF COMPLAINT(S): Left hip dislocation HISTORY OF PRESENT ILLNESS: This is a 80-year-old woman with a past medical history of CHF who comes to the emergency department with a chief complaint of left hip dislocation. The patient states that she was here for a lab draw when she twisted and her left hip dislocated. She states that she has had a her hip dislocated 2 times prior to this all within the last 3 months. She states that she has an appointment on June 20 however she thinks this is too far away. She denies any numbness, tingling but states that she is experiencing 10 of 10 pain in her left hip. She describes it as throbbing. This pain does not radiate. She has not yet tried any pain medication. The pain is worse with movement. The pain is better when she keeps it still. She denies any other symptoms. REVIEW OF SYSTEMS: Constitutional: Denies fever, chills. Skin:Denies a rash MSK: Positive for left hip pain and dislocation Neurological: Denies numbness, tingling, weakness PAST MEDICAL HISTORY: As per history of present illness and as reviewed below otherwise noncontributory. SURGICAL HISTORY: As per history of present illness and as reviewed below otherwise noncontributory. SOCIAL HISTORY: As per history of present illness and as reviewed below otherwise noncontributory. FAMILY HISTORY: As per history of present illness and as reviewed below otherwise noncontributory. EXAMINATION OF ORGAN SYSTEMS/BODY AREAS: Constitutional: Blood pressure 103/59, heart rate 87, respiratory rate 18 with an oxygen saturation of 98% on room air. Temperature 36.0 General: Elderly woman who appears to be in no acute distress Psychiatric: Appropriate mood and affect. Eyes: No scleral icterus or conjunctival erythema Cardiovascular: Regular, rate, and rhythm. No gallops, murmurs, or rubs. Bilateral upper and lower extremity pulses symmetric and intact. No peripheral edema. Respiratory: Lungs clear to auscultation bilaterally. No wheezes, rales, or rhonchi. Musculoskeletal: The patient cannot move her left hip. Her left leg is internally rotated and shortened by approximately 4 inches. Skin: No lesions or abrasions. 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 There was delay and triaging the patient as there was significant amount of critical patients in the emergency department. We will provide the patient with 4 mg of IV morphine. Given the patient is in a chair we are awaiting a bed with monitoring so that the patient's left hip can be relocated and imaged. The patient was amenable to this plan. In the interim we did contact [facility] in [place] and the earliest available appointment is June 17, 2021. I did discuss this with the patient and family. At this time they would like us to speak to Dr. herr. Therefore we did contact his office and he has an available appointment on June 11, 2021. I did discuss this with the patient and family and they would like this appointment. DDx: Fracture, dislocation The radiological images were viewed by myself along with reading the report from the radiologist. Hip x-ray reveals posterior superior dislocation of the left femoral head prosthesis. No evidence of fracture. I did discuss this with the patient. The patient has not had anything to eat since 10 AM. We did contact anesthesia to perform procedural sedation for reduction. I did obtain written consent for reduction. The patient and family were amenable to this plan. Dislocation Reduction Procedure Note Performed by: Myself with Maya Byrdbertson Consent: Written consent obtained Risks and benefits: risks, benefits and alternatives were discussed Consent given by: Patient Patient understanding: Patient states understanding of the procedure being performed Patient consent: Patient understanding of the procedure matches consent given Patient identity confirmed: verbally with patient and arm band Time out: Immediately prior to procedure a "time out" was called to verify the correct patient, procedure, equipment, web support engineer and site/side marked as required. Location details: Left hip Reduction Procedure: axial pull and closed manipulation of left femur head. We then placed in abduction pad. Results: Post reduction alignement improved Complication: Tolerated well without complication. 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 Tendons intact. Post-reduction Examination: Patient's left lower extremity was symmetric to length as compared to the right with good capillary refill and good sensation intact Post Reduction Imaging: Hip x-ray reveals relocation/reduction of the left dislocation. No evidence of fracture. After reduction I did discuss follow-up with her surgeon. She was amenable to discharge at this time and had no further questions. She was given strict return precautions DISPOSITION: The patient was discharged home in stable condition. The patient will follow up with her surgeon on June 11, 2021 CONDITION: Fair PROCEDURES: Dislocation reduction FINAL IMPRESSION(S)/DIAGNOSES: 1. Acute left prosthetic hip dislocation status post reduction Memo Gómez M.D. Left Hip Pain Score (Numeric/FACES): 10 - Related Data Allergies Allergy/AdvReac Type Severity Reaction Status Date / Time metronidazole [From Flagyl] Allergy Other Verified 06/03/21 13:50 NSAIDS (Non-Steroidal Allergy Other Verified 06/03/21 13:50 Anti-Inflamma Penicillins Allergy Other Verified 06/03/21 13:50 piperacillin [From Zosyn] Allergy Other Verified 06/03/21 13:50 tazobactam [From Zosyn] Allergy Other Verified 06/03/21 13:50 Home Meds: Home Meds ALPRAZolam [Xanax XR] 1 mg PO DAILY PRN 10/19/17 [History] Calcium Carbonate [Calcium] 600 mg PO BID 10/19/17 [History] Cholecalciferol (Vitamin D3) [Vitamin D] 1,000 unit PO DAILY 10/19/17 [History] Furosemide 40 mg PO BID 10/19/17 [History] Levothyroxine [Synthroid] 100 mcg PO ACBREAKFAST 10/19/17 [History] Primidone 150 mg PO BEDTIME 10/19/17 [History] Warfarin [Coumadin] 5 mg PO DAILY@1400 10/19/17 [History] carvediloL [Carvedilol] 3.125 mg PO BID 10/19/17 [History] Gabapentin [Neurontin] 300 mg PO BID 08/29/19 [History] Potassium Chloride [Klor-Con M20] 20 meq PO BID 08/30/19 [History] rOPINIRole [Requip] 0.5 mg PO BEDTIME 08/30/19 [History] Rosuvastatin Calcium 20 mg PO BEDTIME 12/05/20 [History] Ferrous Sulfate 325 mg PO BIDMEALS #30 tablet 12/17/20 [Rx] Acetaminophen [Tylenol Extra Strength] 500 mg PO Q4H PRN 02/12/21 [History] Cyanocobalamin (Vitamin B-12) [Cyanocobalamin Injection] 1,000 mcg IM ASDIRECTED 02/12/21 [History] Past Medical History HEENT History: Reports: Cataract Cardiovascular History: Reports: Blood Clots/VTE/DVT, Heart Failure Respiratory History: Reports: PE Gastrointestinal History: Reports: None Genitourinary History: Reports: None CALENDER INSPECTOR History: Reports: None Neurological History: Reports: None Psychiatric History: Reports: None Endocrine/Metabolic History: Reports: Hypothyroidism Hematologic History: Reports: Other (See Below) Other Hematologic History: blood clot Immunologic History: Reports: None Oncologic (Cancer) History: Reports: None Dermatologic History: Reports: None - Infectious Disease History Infectious Disease History: Reports: Chicken Pox, Measles, Mumps - Past Surgical History Head Surgeries/Procedures: Reports: None HEENT Surgical History: Reports: Cataract Surgery Other HEENT Surgeries/Procedures: wear glasses, upper and lower dentures Cardiovascular Surgical History: Reports: Other (See Below) Other Cardiovascular Surgeries/Procedures: filter Respiratory Surgical History: Reports: Thoracentesis GI Surgical History: Reports: Appendectomy, Bariatric Procedure, Cholecystectomy, Other (See Below) Other GI Surgeries/Procedures: gastric bypass Female Surgical History: Reports: Hysterectomy Musculoskeletal Surgical History: Reports: Hip Replacement, Knee Replacement Other Musculoskeletal Surgeries/Procedures:: left hip and bilat knee Oncologic Surgical History: Reports: None Social & Family History - Family History Family Medical History: No Pertinent Family History - Tobacco Use Second Hand Smoke Exposure: No - Caffeine Use Caffeine Use: Reports: None - Recreational Drug Use Recreational Drug Use: No ED ROS GENERAL - Review of Systems Review Of Systems: See Below ED EXAM, GENERAL - Physical Exam Exam: See Below Course - Vital Signs Last Recorded V/S: Last Vital Signs Temp 36.0 C L 06/03/21 13:43 Pulse 87 06/03/21 13:43 Resp 20 06/03/21 13:43 BP 103/59 L 06/03/21 13:43 Pulse Ox 98 06/03/21 13:43 - Orders/Labs/Meds Meds: Medications Discontinued Medications Generic Name Dose Route Start Last Admin Trade Name Freq PRN Reason Stop Dose Admin Fentanyl Confirm 06/03/21 17:36 Fentanyl 100 Mcg/2 Ml Sdv Administered 06/03/21 17:37 Dose 100 mcg .ROUTE .STK-MED ONE Ketamine HCl Confirm 06/03/21 18:02 Ketamine 500 Mg/10 Ml Mdv Administered 06/03/21 18:03 Dose 500 mg .ROUTE .STK-MED ONE Lidocaine HCl Confirm 06/03/21 17:36 Lidocaine 1% 5 Ml Sdv Administered 06/03/21 17:37 Dose 5 ml .ROUTE .STK-MED ONE Morphine Sulfate 4 mg 06/03/21 16:18 06/03/21 16:32 Morphine 4 Mg/Ml Vial IVPUSH 06/03/21 16:19 4 mg ONETIME ONE Administration Propofol Confirm 06/03/21 17:36 Propofol 200 Mg/20 Ml Sdv Administered 06/03/21 17:37 Dose 400 mg .ROUTE .STK-MED ONE Departure - Departure Time of Disposition: 18:57 Disposition: Home, Self-Care 01 Condition: Fair Clinical Impression: Dislocation of left hip - Discharge Information *PRESCRIPTION DRUG MONITORING PROGRAM REVIEWED*: No *COPY OF PRESCRIPTION DRUG MONITORING REPORT IN PATIENT SARAH: No Instructions: Hip Dislocation Referrals: Paul Herr MD [Physician] - (Pleae see Dr. Herr on June 11 at 4:3 0pm at the [facility]. ) PCP,None [Primary Care Provider] - Forms: ED Department Discharge, ED Return to Work/School Form Additional Instructions: You were evaluated today on an emergent basis. At this time we were able to put your hip back into place. I recommend you use the abduction pillow while sleeping and while lying at home. It is recommended that you limit ambulation/walking until you follow-up with your orthopedic surgeon otherwise this will likely dislocate again. For pain I would like you to use Tylenol and your home pain medication. You may ice your left hip 20 min 4 times a day. Give any worsening symptoms please return to the emergency department. Dr. Herr (Orthopedics) [place], [place] Appointment 06/11/21 at 4:30PM [phone] The patient is informed of any results of their evaluation and diagnostic workup and all questions are answered. They are given discharge instructions and return precautions. The patient is stable for discharge. The patient states they understand and agree with the plan and that they will return if their symptoms get worse or if they have any new concerns. The following information is given to patients seen in the emergency department who are being discharged to home. This information is to outline your options for follow-up care. We provide all patients seen in our emergency department with a follow-up referral. The need for follow-up, as well as the timing and circumstances, are variable depending upon the specifics of your emergency department visit. If you don't have a primary care physician on staff, we will provide you with a referral. We always advise you to contact your personal physician following an emergency department visit to inform them of the circumstance of the visit and for follow-up with them and/or the need for any referrals to a consulting specialist. The emergency department will also refer you to a specialist when appropriate. This referral assures that you have the opportunity for follow-up care with a specialist. All of these measure are taken in an effort to provide you with optimal care, which includes your follow-up. Under all circumstances we always encourage you to contact your private physician who remains a resource for coordinating your care. When calling for follow-up care, please make the office aware that this follow-up is from your recent emergency room visit. If for any reason you are refused follow-up, please contact the [facility] Emergency Department at and asked to speak to the emergency department charge nurse. Sepsis Event Note (ED) - Evaluation Sepsis Screening Result: No Definite Risk - Focused Exam Vital Signs: Vital Signs Temp Pulse Resp BP Pulse Ox 06/03/21 13:43 36.0 C L 87 20 103/59 L 98
[2021-06-04 01:09] VITALS: BP 123/76
== END 2021-06-03 19:30 | disposition home or self-care (01) ==
LOC: MW.ED 12:28
DX: T84.021A Dislocation of internal left hip prosthesis, initial encounter (principal); I50.9 Heart failure, unspecified; E03.9 Hypothyroidism, unspecified; Z86.711 Personal history of pulmonary embolism; Z88.1 Allergy status to other antibiotic agents; Z88.6 Allergy status to analgesic agent; Z88.0 Allergy status to penicillin; Z79.01 Long term (current) use of anticoagulants; Z79.899 Other long term (current) drug therapy; X50.1XXA Overexertion from prolonged static or awkward postures, initial encounter
CPT/HCPCS: 27265; 73501; 73502; 96374; 99283; J2270; J2704; J3010

== ENCOUNTER 2021-07-23 11:16 | Day surgery (SDC) | payer MEDICARE, BC ==
[2021-07-23] MEDS ORDERED: Sodium Chloride 0.9% 2.5 ML Syringe FLUSH PRN (11:38)
[2021-07-23] MEDS ORDERED: Sodium Chloride 0.9% 10 ML Syringe FLUSH PRN (11:38)
[2021-07-23] MEDS ORDERED: Ketamine 500 mg/10 ML MDV ONE (14:30)
[2021-07-23] MEDS ORDERED: Propofol 200 MG/20 ML SDV ONE (14:30)
[2021-07-23] MEDS ORDERED: Rocuronium Bromide 50 MG/5 ML Syringe ONE (17:11)
[2021-07-23] MEDS ORDERED: Glycopyrrolate 0.2 MG/ML SDV ONE (17:11)
[2021-07-23] MEDS ORDERED: Sugammadex Sodium 200 MG/2 ML VIAL ONE (17:11)
[2021-07-23] MEDS ORDERED: ePHEDrine 50 MG/ML SDV ONE (17:11)
[2021-07-23 20:28] VITALS: BP 101/54; PULSE 77
== END 2021-07-23 20:15 | disposition home or self-care (01) ==
LOC: MW.ED 11:16 → MW.SDS 15:13 → MW.ED 16:13 → MW.MS 17:29 → MW.SDS 20:15
PROVIDERS: ATTEND Orthopaedic Surgery
DX: T84.021A Dislocation of internal left hip prosthesis, initial encounter (principal); I50.9 Heart failure, unspecified; E03.9 Hypothyroidism, unspecified; Z01.812 Encounter for preprocedural laboratory examination; Z20.822 Contact with and (suspected) exposure to COVID-19; Z88.0 Allergy status to penicillin; Z88.8 Allergy status to other drugs, medicaments and biological substances; Z98.890 Other specified postprocedural states; Z90.49 Acquired absence of other specified parts of digestive tract; Z79.899 Other long term (current) drug therapy; Z79.890 Hormone replacement therapy
CPT/HCPCS: 01200; 73501-26-LT; 73501-LT; 73502-26-LT; 73502-LT; 99100; 99285-25; J2704; J3490; U0002

== ENCOUNTER 2022-09-02 15:25 | Inpatient (IN) | payer MEDICARE, BC ==
[2022-09-02] MEDS ORDERED: Sodium Chloride 0.9% 1,000 ML IV ONE (15:50)
[2022-09-02 16:40] LABS: CORONAVIRUS COVID-19 NAA NEGATIVE (NEGATIVE); INFLUENZA A NAA NEGATIVE (NEGATIVE); INFLUENZA B NAA NEGATIVE (NEGATIVE); RESPIRATORY SYNCYTIAL VIR NAA NEGATIVE (NEGATIVE)
[2022-09-02 16:54] LABS: CARBON DIOXIDE,CO2 19.3 mmol/L (21.0-32.0); POTASSIUM,K 4.9 mmol/L (3.5-5.1)
[2022-09-02] MEDS ORDERED: 50% Dextrose in Water 50 ML Syringe IVPUSH PRN (21:24)
[2022-09-02] MEDS ORDERED: Glucagon,Human Recombinant 1 MG Vial IM PRN (21:24)
[2022-09-02] MEDS ORDERED: Apixaban 5 MG Tab PO SCH (21:30)
[2022-09-02] MEDS: rOPINIRole 1 MG Tab PO SCH (21:58)
[2022-09-02] MEDS: Primidone 50 MG Tab PO SCH (21:58)
[2022-09-02] MEDS: Gabapentin 300 MG Cap PO SCH (21:59)
[2022-09-02] MEDS: Sodium Chloride 0.9% 1,000 ML IV SCH (22:07)
[2022-09-02] MEDS ORDERED: Sodium Chloride 0.9% 500 ML IV SCH (23:45)
[2022-09-03] MEDS ORDERED: Sodium Chloride 0.9% 500 ML IV SCH (04:45)
[2022-09-03] MEDS: Levothyroxine 100 MCG Tab PO SCH ×2 (06:11→06:31)
[2022-09-03] MEDS: Sodium Chloride 0.9% 1,000 ML IV SCH ×3 (06:31→21:52)
[2022-09-03 06:38] LABS: CARBON DIOXIDE,CO2 19.4 mmol/L (21.0-32.0); POTASSIUM,K 4.2 mmol/L (3.5-5.1)
[2022-09-03] MEDS: Insulin Aspart 100 Units/ML 3 ML Pen SUBCUT SCH ×2 (07:30→11:30)
[2022-09-03] MEDS: Pantoprazole 40 MG Tab.CR PO SCH (09:26)
[2022-09-03] MEDS: Gabapentin 300 MG Cap PO SCH (20:40)
[2022-09-03] MEDS: rOPINIRole 1 MG Tab PO SCH (20:40)
[2022-09-03] MEDS: Primidone 50 MG Tab PO SCH (20:40)
[2022-09-03] MEDS ORDERED: Ondansetron 4 MG/2 ML SDV IVPUSH PRN (21:09)
[2022-09-03] MEDS ORDERED: Acetaminophen 325 MG Tab PO PRN (21:09)
[2022-09-04] MEDS: Sodium Chloride 0.9% 1,000 ML IV SCH (06:26)
[2022-09-04] MEDS: Levothyroxine 100 MCG Tab PO SCH ×2 (06:27→06:32)
[2022-09-04 07:17] LABS: CARBON DIOXIDE,CO2 19.8 mmol/L (21.0-32.0); POTASSIUM,K 4.1 mmol/L (3.5-5.1)
[2022-09-04] MEDS ORDERED: Magnesium Sulfate/Water 2 GM in Premix Bag 1 BAG IV ONE (08:23)
[2022-09-04] MEDS: Pantoprazole 40 MG Tab.CR PO SCH (10:00)
[2022-09-04] MEDS: Apixaban 5 MG Tab PO SCH ×2 (10:59→20:35)
[2022-09-04] MEDS: Docusate Sodium 100 MG Cap PO SCH (17:44)
[2022-09-04] MEDS: Primidone 50 MG Tab PO SCH (20:35)
[2022-09-04] MEDS: rOPINIRole 1 MG Tab PO SCH (20:35)
[2022-09-04] MEDS: Gabapentin 300 MG Cap PO SCH (20:35)
[2022-09-05] MEDS: Levothyroxine 100 MCG Tab PO SCH (06:46)
[2022-09-05 07:32] LABS: CARBON DIOXIDE,CO2 21.9 mmol/L (21.0-32.0); POTASSIUM,K 4.2 mmol/L (3.5-5.1)
[2022-09-05] MEDS: Apixaban 5 MG Tab PO SCH (08:50)
[2022-09-05] MEDS: Pantoprazole 40 MG Tab.CR PO SCH (08:50)
[2022-09-05] MEDS: Docusate Sodium 100 MG Cap PO SCH (08:50)
[2022-09-05 13:19] VITALS: BP 118/60; PULSE 73
== END 2022-09-05 12:00 | disposition home health service (06) | DRG 315 ==
LOC: MW.ED 15:25 → MW.MS 19:05
PROVIDERS: ADMIT Internal Medicine; ATTEND Internal Medicine
DX: I95.89 Other hypotension (principal); I95.9 Hypotension, unspecified; E86.0 Dehydration; I50.22 Chronic systolic (congestive) heart failure; I48.91 Unspecified atrial fibrillation; J44.9 Chronic obstructive pulmonary disease, unspecified; I10 Essential (primary) hypertension; I25.10 Atherosclerotic heart disease of native coronary artery without angina pectoris; I50.9 Heart failure, unspecified; I82.411 Acute embolism and thrombosis of right femoral vein; Z66 Do not resuscitate; E03.9 Hypothyroidism, unspecified; N17.9 Acute kidney failure, unspecified; Z79.899 Other long term (current) drug therapy; I11.0 Hypertensive heart disease with heart failure; I48.0 Paroxysmal atrial fibrillation; R19.7 Diarrhea, unspecified; Z96.649 Presence of unspecified artificial hip joint; Z96.659 Presence of unspecified artificial knee joint; Z90.49 Acquired absence of other specified parts of digestive tract; Z95.828 Presence of other vascular implants and grafts; Z86.718 Personal history of other venous thrombosis and embolism; Z88.0 Allergy status to penicillin; Z88.8 Allergy status to other drugs, medicaments and biological substances; Z79.890 Hormone replacement therapy; Z20.822 Contact with and (suspected) exposure to COVID-19; Z79.01 Long term (current) use of anticoagulants; Z98.49 Cataract extraction status, unspecified eye; Z90.710 Acquired absence of both cervix and uterus; Z98.84 Bariatric surgery status; Z79.82 Long term (current) use of aspirin; Z86.711 Personal history of pulmonary embolism
CPT/HCPCS: 0241U; 36415; 71045; 74176; 80048; 80053; 80061; 81001; 82947; 83605; 83735; 83880; 84484; 85025; 85379; 86850; 86870; 86900; 86901; 86902; 87040; 93005; 96360; 97162; 97530; 99285; A9270-GY; J2405; J3475; J7030; J7040

== ENCOUNTER 2022-12-14 20:06 | Emergency (ER) | payer MEDICARE, BC ==
[2022-12-14 21:50] LABS: BASOPHILS PERCENT AUTO 0.2 % (0.0-1.5); EOSINOPHILS ABSOLUTE AUTO 0.1 K/uL (0.0-0.7); EOSINOPHILS PERCENT AUTO 1.4 % (0.0-7.0); HEMATOCRIT 37.4 % (36.0-46.0); HEMOGLOBIN 12.3 g/dL (12.0-16.0); LYMPHOCYTES ABSOLUTE AUTO 0.6 K/uL (0.6-2.4); LYMPHOCYTES PERCENT AUTO 5.8 % (16.0-40.0); MEAN CORPUSCULAR HEMOGLOBIN 32.3 pg (27.0-32.0); MEAN CORPUSCULAR HGB CONC 32.9 g/dL (31.0-37.0); MEAN CORPUSCULAR VOLUME 98.2 fL (80.0-98.0); MONOCYTES ABSOLUTE AUTO 0.6 K/uL (0.0-0.8); MONOCYTES PERCENT AUTO 6.5 % (0.0-15.0); NEUTROPHILS ABSOLUTE AUTO 8.2 K/uL (1.4-5.7); NEUTROPHILS PERCENT AUTO 86.1 % (48.0-80.0); NRBC ABSOLUTE 0 K/uL; PLATELET COUNT,PLT 234 K/uL (150-400); RED BLOOD CELL COUNT 3.81 M/uL (4.30-5.90); WHITE BLOOD CELL COUNT,WBC 9.55 K/uL (4.0-11.0)
[2022-12-14 22:03] LABS: INR 1.06 (0.86-1.11); PTT,PARTIAL THROMBOPLSTIN TIME 37.6 SEC (23.9-30.7)
[2022-12-14 22:16] LABS: LACTIC ACID 0.9 mmol/L (0.4-2.0)
[2022-12-14 22:19] LABS: A/G RATIO 0.8 (0.9-1.6); ALBUMIN 2.8 g/dL (3.4-5.0); BILIRUBIN TOTAL 0.4 mg/dL (0.2-1.0); CALCIUM 8.2 mg/dL (8.5-10.1); CARBON DIOXIDE,CO2 24.2 mmol/L (21.0-32.0); CREATININE 0.6 mg/dL (0.6-1.0); EST CRCL DRUG DOSING (CG) 62.8 mL/min; MAGNESIUM 2.1 mg/dL (1.8-2.4); POTASSIUM,K 3.5 mmol/L (3.5-5.1); PROTEIN TOTAL,TP 6.5 g/dL (6.4-8.2)
[2022-12-14 22:20] LABS: C-REACTIVE PROTEIN 19.4 mg/dL (0.00-0.90)
[2022-12-14 23:25] LABS: BILIRUBIN,URINE NEGATIVE (NEGATIVE); COLOR,URINE YELLOW; GLUCOSE,URINE 500 mg/dL (NEGATIVE); KETONES,URINE TRACE mg/dL (NEGATIVE); LEUKOCYTE ESTERASE,URINE NEGATIVE (NEGATIVE); NITRITE,URINE NEGATIVE (NEGATIVE); OCCULT BLOOD,URINE SMALL (NEGATIVE); PH,URINE 5.5 (5.0-8.0); PROTEIN,URINE TRACE mg/dL (NEGATIVE); UROBILINOGEN,URINE 0.2 EU/dL (<2.0)
[2022-12-14 23:30] LABS: APPEARANCE,URINE HAZY
[2022-12-14 23:32] LABS: BACTERIA,URINE FEW (NEGATIVE); EPITHELIAL CELLS,URINE FEW (NONE-FEW); HYALINE CASTS,URINE OCCASIONAL (0-2/LPF); RBC,URINE 0-5 (0-2/HPF); SQUAMOUS EPITHELIAL CELLS,UR FEW; WBC,URINE NONE SEEN (0-5/HPF)
[2022-12-15 00:09] VITALS: BP 102/51; PULSE 79
== END 2022-12-15 00:25 | disposition home or self-care (01) ==
LOC: MW.ED 20:06
DX: M84.442A Pathological fracture, left hand, initial encounter for fracture (principal); I11.0 Hypertensive heart disease with heart failure; I50.9 Heart failure, unspecified; J44.9 Chronic obstructive pulmonary disease, unspecified; E03.9 Hypothyroidism, unspecified; I48.91 Unspecified atrial fibrillation; Z79.899 Other long term (current) drug therapy; Z79.82 Long term (current) use of aspirin; Z88.8 Allergy status to other drugs, medicaments and biological substances; Z88.1 Allergy status to other antibiotic agents; Z88.0 Allergy status to penicillin; Z79.01 Long term (current) use of anticoagulants; Z90.49 Acquired absence of other specified parts of digestive tract; Z20.822 Contact with and (suspected) exposure to COVID-19
CPT/HCPCS: 29125; 36415; 71045; 73110; 80053; 81001; 83605; 83735; 83880; 84484; 85025; 85610; 85730; 86140; 87040; 93005; 93971; 99284; U0002

== ENCOUNTER 2023-08-07 14:35 | Emergency (ER) | payer MEDICARE, BC ==
[2023-08-07 14:49] LABS: HEMATOCRIT 40.1 % (37.0-47.0); HEMOGLOBIN 12.6 g/dL (12.0-16.0); MEAN CORPUSCULAR HGB CONC 31.4 g/dL (32.0-36.0); MEAN CORPUSCULAR VOLUME 95.5 fL (83.0-99.0); MEAN PLATELET VOLUME 9.3 fL (9.4-12.3); PLATELET COUNT,PLT 293 K/uL (150-400); WHITE BLOOD CELL COUNT,WBC 13.07 K/uL (3.9-11.3)
[2023-08-07 15:21] LABS: A/G RATIO 0.6 (0.9-1.6); ALBUMIN 2.6 g/dL (3.4-5.0); BILIRUBIN TOTAL 0.3 mg/dL (0.2-1.0); CALCIUM 8.6 mg/dL (8.5-10.1); CARBON DIOXIDE,CO2 25.8 mmol/L (21.0-32.0); CREATININE 0.9 mg/dL (0.6-1.0); EST CRCL DRUG DOSING (CG) 43.56 mL/min; POTASSIUM,K 3.6 mmol/L (3.5-5.1); PROTEIN TOTAL,TP 7.1 g/dL (6.4-8.2)
[2023-08-07 15:23] LABS: LYMPHOCYTES ABSOLUTE MAN 1.18 K/uL (1.00-4.80); LYMPHOCYTES PERCENT MAN 9 % (24-44); MONOCYTES ABSOLUTE MAN 2.09 K/uL (0.00-0.80); MONOCYTES PERCENT MAN 16 % (0-8); SEG NEUTROPHILS PERCENT MAN 75 % (41-71)
[2023-08-07 15:57] LABS: BILIRUBIN,URINE NEGATIVE (NEGATIVE); COLOR,URINE YELLOW; GLUCOSE,URINE NEGATIVE (NEGATIVE); KETONES,URINE NEGATIVE (NEGATIVE); LEUKOCYTE ESTERASE,URINE NEGATIVE (NEGATIVE); NITRITE,URINE NEGATIVE (NEGATIVE); OCCULT BLOOD,URINE NEGATIVE (NEGATIVE); PH,URINE 5.5 (5.0-8.0); PROTEIN,URINE TRACE mg/dL (NEGATIVE); UROBILINOGEN,URINE 0.2 EU/dL (<2.0)
[2023-08-07 16:00] LABS: APPEARANCE,URINE HAZY
[2023-08-07 16:06] LABS: BACTERIA,URINE FEW (NEGATIVE); CALCIUM OXALATE CRYSTALS,URINE FEW (NEGATIVE); EPITHELIAL CELLS,URINE FEW (NONE-FEW); HYALINE CASTS,URINE 0-2 (0-2/LPF); WBC,URINE 0-1 (0-5/HPF)
[2023-08-07 16:21] LABS: CORONAVIRUS COVID-19 NAA NEGATIVE (NEGATIVE); INFLUENZA A NAA NEGATIVE (NEGATIVE); INFLUENZA B NAA NEGATIVE (NEGATIVE); RESPIRATORY SYNCYTIAL VIR NAA NEGATIVE (NEGATIVE)
[2023-08-07] MEDS ORDERED: Furosemide 40 MG/4 ML VIAL IVPUSH ONE (17:11)
[2023-08-07 18:36] VITALS: BP 100/64; PULSE 102
== END 2023-08-07 18:34 | disposition home or self-care (01) ==
LOC: MW.ED 14:35
DX: R06.02 Shortness of breath (principal); R79.89 Other specified abnormal findings of blood chemistry; I11.0 Hypertensive heart disease with heart failure; I50.9 Heart failure, unspecified; J44.9 Chronic obstructive pulmonary disease, unspecified; I48.91 Unspecified atrial fibrillation; E03.9 Hypothyroidism, unspecified; Z90.49 Acquired absence of other specified parts of digestive tract; Z79.82 Long term (current) use of aspirin; Z79.01 Long term (current) use of anticoagulants; Z79.899 Other long term (current) drug therapy; Z88.6 Allergy status to analgesic agent; Z88.0 Allergy status to penicillin; Z88.1 Allergy status to other antibiotic agents
CPT/HCPCS: 0241U; 36415; 71045; 80053; 81001; 83880; 84484; 85025; 93005; 96374; 99285; J1940; 93010; 99284

== ENCOUNTER 2023-08-22 16:20 | Inpatient (IN) | payer MEDICARE, BC ==
[2023-08-22] MEDS: Sodium Chloride 0.9% 1,000 ML IV ONE (17:40)
[2023-08-22] MEDS: Ondansetron 4 MG/2 ML SDV IVPUSH ONE (17:43)
[2023-08-22 18:03] LABS: BASOPHILS ABSOLUTE AUTO 0.06 K/uL (0.00-0.20); BASOPHILS PERCENT AUTO 0.4 % (0.0-1.0); EOSINOPHILS ABSOLUTE AUTO 0.02 K/uL (0.00-0.45); EOSINOPHILS PERCENT AUTO 0.1 % (0.0-6.0); IMMATURE GRAN ABSOLUTE AUTO 0.08 K/uL (0.00-0.05); IMMATURE GRAN PERCENT AUTO 0.6 % (0.0-0.4); LYMPHOCYTES ABSOLUTE AUTO 0.77 K/uL (1.00-4.80); LYMPHOCYTES PERCENT AUTO 5.7 % (24.0-44.0); MEAN CORPUSCULAR HEMOGLOBIN 29.4 pg (28.0-32.0); MEAN CORPUSCULAR HGB CONC 31.6 g/dL (32.0-36.0); MEAN CORPUSCULAR VOLUME 93.1 fL (83.0-99.0); MEAN PLATELET VOLUME 8.9 fL (9.4-12.3); MONOCYTES ABSOLUTE AUTO 1.09 K/uL (0.00-0.80); MONOCYTES PERCENT AUTO 8.1 % (0.0-8.0); NEUTROPHILS ABSOLUTE AUTO 11.46 K/uL (1.80-7.70); NEUTROPHILS PERCENT AUTO 85.1 % (41.0-71.0); PLATELET COUNT,PLT 398 K/uL (150-400); RED BLOOD CELL COUNT 4.08 M/uL (4.10-5.30); WHITE BLOOD CELL COUNT,WBC 13.48 K/uL (3.9-11.3)
[2023-08-22 18:29] LABS: A/G RATIO 0.6 (0.9-1.6); ALBUMIN 2.8 g/dL (3.4-5.0); BILIRUBIN TOTAL 0.3 mg/dL (0.2-1.0); CALCIUM 9.5 mg/dL (8.5-10.1); CARBON DIOXIDE,CO2 21.7 mmol/L (21.0-32.0); CREATININE 0.9 mg/dL (0.6-1.0); EST CRCL DRUG DOSING (CG) 43.56 mL/min; POTASSIUM,K 4.5 mmol/L (3.5-5.1); PROTEIN TOTAL,TP 7.7 g/dL (6.4-8.2)
[2023-08-22 18:34] LABS: LACTIC ACID 1.5 mmol/L (0.4-2.0)
[2023-08-22] MEDS: Ciprofloxacin in D5W 400 MG in Premix Bag 1 BAG IV SCH (18:35)
[2023-08-22 18:52] LABS: BILIRUBIN,URINE NEGATIVE (NEGATIVE); COLOR,URINE YELLOW; GLUCOSE,URINE NEGATIVE (NEGATIVE); KETONES,URINE TRACE mg/dL (NEGATIVE); LEUKOCYTE ESTERASE,URINE TRACE (NEGATIVE); NITRITE,URINE NEGATIVE (NEGATIVE); OCCULT BLOOD,URINE TRACE-INTACT (NEGATIVE); PROTEIN,URINE TRACE mg/dL (NEGATIVE); UROBILINOGEN,URINE 0.2 EU/dL (<2.0)
[2023-08-22 19:30] LABS: BACTERIA,URINE FEW (NEGATIVE); EPITHELIAL CELLS,URINE MODERATE (NONE-FEW); RBC,URINE 0-5 (0-2/HPF)
[2023-08-22 19:31] LABS: APPEARANCE,URINE SLT CLOUDY; CALCIUM OXALATE CRYSTALS,URINE FEW (NEGATIVE); HYALINE CASTS,URINE 0-3 (0-2/LPF)
[2023-08-22] MEDS: diphenhydrAMINE 50 MG/ML SDV IVPUSH ONE (19:53)
[2023-08-22] MEDS: methylPREDNISolone Sodium Succinate 125 MG/2 ML SDV IVPUSH ONE (20:22)
[2023-08-22] MEDS: rOPINIRole 1 MG Tab PO STA (20:41)
[2023-08-22] MEDS: Metoprolol Tartrate 25 MG Tab PO ONE (21:48)
[2023-08-22] MEDS: cefTRIAXone 1 GM in Sodium Chloride 0.9% 50 ML IV ONE (22:18)
[2023-08-23] MEDS ORDERED: Ondansetron 4 MG/2 ML SDV IVPUSH PRN (00:33)
[2023-08-23 06:23] LABS: BASOPHILS ABSOLUTE AUTO 0.02 K/uL (0.00-0.20); BASOPHILS PERCENT AUTO 0.2 % (0.0-1.0); EOSINOPHILS ABSOLUTE AUTO 0.04 K/uL (0.00-0.45); EOSINOPHILS PERCENT AUTO 0.4 % (0.0-6.0); HEMATOCRIT 35.7 % (37.0-47.0); HEMOGLOBIN 11.6 g/dL (12.0-16.0); IMMATURE GRAN ABSOLUTE AUTO 0.06 K/uL (0.00-0.05); IMMATURE GRAN PERCENT AUTO 0.6 % (0.0-0.4); LYMPHOCYTES PERCENT AUTO 7.6 % (24.0-44.0); MEAN CORPUSCULAR HEMOGLOBIN 30.1 pg (28.0-32.0); MEAN CORPUSCULAR HGB CONC 32.5 g/dL (32.0-36.0); MEAN CORPUSCULAR VOLUME 92.5 fL (83.0-99.0); MEAN PLATELET VOLUME 9.8 fL (9.4-12.3); MONOCYTES ABSOLUTE AUTO 0.45 K/uL (0.00-0.80); MONOCYTES PERCENT AUTO 4.3 % (0.0-8.0); NEUTROPHILS ABSOLUTE AUTO 9.09 K/uL (1.80-7.70); NEUTROPHILS PERCENT AUTO 86.9 % (41.0-71.0); PLATELET COUNT,PLT 400 K/uL (150-400); RED BLOOD CELL COUNT 3.86 M/uL (4.10-5.30); WHITE BLOOD CELL COUNT,WBC 10.46 K/uL (3.9-11.3)
[2023-08-23 06:39] LABS: CALCIUM 9.4 mg/dL (8.5-10.1); CARBON DIOXIDE,CO2 22.1 mmol/L (21.0-32.0); CREATININE 0.7 mg/dL (0.6-1.0); EST CRCL DRUG DOSING (CG) 48.06 mL/min; POTASSIUM,K 4.6 mmol/L (3.5-5.1)
[2023-08-23] MEDS: Pantoprazole 40 MG Tab.CR PO SCH (09:30)
[2023-08-23] MEDS: Apixaban 5 MG Tab PO SCH (09:30)
[2023-08-23] MEDS: rOPINIRole 1 MG Tab PO SCH ×2 (12:53→20:17)
[2023-08-23] MEDS: Levothyroxine 100 MCG Tab PO SCH (12:53)
[2023-08-23] MEDS: traMADol 50 MG Tab PO PRN (12:54)
[2023-08-23] MEDS: rOPINIRole 1 MG Tab ONE (13:04)
[2023-08-23] MEDS: oxyCODONE 5 MG Tab PO PRN (20:10)
[2023-08-23] MEDS: Gabapentin 300 MG Cap PO SCH (20:12)
[2023-08-23] MEDS: Primidone 50 MG Tab PO SCH (20:13)
[2023-08-23] MEDS: Rosuvastatin 10 MG Tab PO SCH (20:13)
[2023-08-23] MEDS: cefTRIAXone 1 GM in Sodium Chloride 0.9% 50 ML IV SCH (21:47)
[2023-08-24] MEDS: Docusate Sodium 100 MG Cap PO PRN (00:09)
[2023-08-24 06:09] LABS: BASOPHILS ABSOLUTE AUTO 0.05 K/uL (0.00-0.20); BASOPHILS PERCENT AUTO 0.6 % (0.0-1.0); EOSINOPHILS ABSOLUTE AUTO 0.04 K/uL (0.00-0.45); EOSINOPHILS PERCENT AUTO 0.5 % (0.0-6.0); HEMATOCRIT 32.8 % (37.0-47.0); HEMOGLOBIN 10.4 g/dL (12.0-16.0); IMMATURE GRAN ABSOLUTE AUTO 0.05 K/uL (0.00-0.05); IMMATURE GRAN PERCENT AUTO 0.6 % (0.0-0.4); LYMPHOCYTES ABSOLUTE AUTO 1.14 K/uL (1.00-4.80); LYMPHOCYTES PERCENT AUTO 13.7 % (24.0-44.0); MEAN CORPUSCULAR HEMOGLOBIN 28.9 pg (28.0-32.0); MEAN CORPUSCULAR HGB CONC 31.7 g/dL (32.0-36.0); MEAN CORPUSCULAR VOLUME 91.1 fL (83.0-99.0); MEAN PLATELET VOLUME 9.3 fL (9.4-12.3); MONOCYTES ABSOLUTE AUTO 1.06 K/uL (0.00-0.80); MONOCYTES PERCENT AUTO 12.8 % (0.0-8.0); NEUTROPHILS ABSOLUTE AUTO 5.97 K/uL (1.80-7.70); NEUTROPHILS PERCENT AUTO 71.8 % (41.0-71.0); PLATELET COUNT,PLT 373 K/uL (150-400); WHITE BLOOD CELL COUNT,WBC 8.31 K/uL (3.9-11.3)
[2023-08-24 06:26] LABS: CALCIUM 9.1 mg/dL (8.5-10.1); CARBON DIOXIDE,CO2 23.7 mmol/L (21.0-32.0); CREATININE 0.6 mg/dL (0.6-1.0); EST CRCL DRUG DOSING (CG) 56.08 mL/min; POTASSIUM,K 4.3 mmol/L (3.5-5.1)
[2023-08-24] MEDS: Ibuprofen 600 MG Tab PO PRN (11:20)
[2023-08-24] MEDS: Polyethylene Glycol 3350 Powder 17 GM Packet PO ONE (11:21)
[2023-08-24] MEDS: Acetaminophen 325 MG Tab PO PRN (12:13)
[2023-08-24] MEDS: Lactated Ringers 500 ML IV SCH (14:39)
[2023-08-24 18:23] LABS: LACTIC ACID 1.1 mmol/L (0.4-2.0)
[2023-08-25 05:42] LABS: BASOPHILS ABSOLUTE AUTO 0.05 K/uL (0.00-0.20); BASOPHILS PERCENT AUTO 0.7 % (0.0-1.0); EOSINOPHILS ABSOLUTE AUTO 0.05 K/uL (0.00-0.45); EOSINOPHILS PERCENT AUTO 0.7 % (0.0-6.0); HEMATOCRIT 31.7 % (37.0-47.0); HEMOGLOBIN 10.1 g/dL (12.0-16.0); IMMATURE GRAN ABSOLUTE AUTO 0.03 K/uL (0.00-0.05); IMMATURE GRAN PERCENT AUTO 0.4 % (0.0-0.4); LYMPHOCYTES ABSOLUTE AUTO 1.15 K/uL (1.00-4.80); LYMPHOCYTES PERCENT AUTO 17.2 % (24.0-44.0); MEAN CORPUSCULAR HEMOGLOBIN 29.7 pg (28.0-32.0); MEAN CORPUSCULAR HGB CONC 31.9 g/dL (32.0-36.0); MEAN CORPUSCULAR VOLUME 93.2 fL (83.0-99.0); MEAN PLATELET VOLUME 9.2 fL (9.4-12.3); MONOCYTES ABSOLUTE AUTO 0.83 K/uL (0.00-0.80); MONOCYTES PERCENT AUTO 12.4 % (0.0-8.0); NEUTROPHILS ABSOLUTE AUTO 4.56 K/uL (1.80-7.70); NEUTROPHILS PERCENT AUTO 68.6 % (41.0-71.0); PLATELET COUNT,PLT 330 K/uL (150-400); WHITE BLOOD CELL COUNT,WBC 6.67 K/uL (3.9-11.3)
[2023-08-25 06:07] LABS: A/G RATIO 0.6 (0.9-1.6); ALBUMIN 2.2 g/dL (3.4-5.0); BILIRUBIN TOTAL 0.2 mg/dL (0.2-1.0); CALCIUM 8.8 mg/dL (8.5-10.1); CARBON DIOXIDE,CO2 23.5 mmol/L (21.0-32.0); CREATININE 0.8 mg/dL (0.6-1.0); EST CRCL DRUG DOSING (CG) 42.06 mL/min; POTASSIUM,K 4.2 mmol/L (3.5-5.1); PROTEIN TOTAL,TP 6.2 g/dL (6.4-8.2)
[2023-08-25 11:43] VITALS: BP 105/63; PULSE 99
== END 2023-08-25 12:43 | disposition home health service (06) | DRG 690 ==
LOC: MW.ED 16:20 → MW.MS 22:12
PROVIDERS: ADMIT Internal Medicine; ATTEND Internal Medicine
DX: N12 Tubulo-interstitial nephritis, not specified as acute or chronic (principal); I31.39 Other pericardial effusion (noninflammatory); I48.91 Unspecified atrial fibrillation; I50.9 Heart failure, unspecified; E03.9 Hypothyroidism, unspecified; G25.81 Restless legs syndrome; I11.0 Hypertensive heart disease with heart failure; Z88.1 Allergy status to other antibiotic agents; J44.9 Chronic obstructive pulmonary disease, unspecified; Z88.6 Allergy status to analgesic agent; Z66 Do not resuscitate; G20.A1 Parkinson's disease without dyskinesia, without mention of fluctuations; D64.9 Anemia, unspecified; Z96.659 Presence of unspecified artificial knee joint; K59.00 Constipation, unspecified; M54.50 Low back pain, unspecified; Z96.649 Presence of unspecified artificial hip joint; Z88.8 Allergy status to other drugs, medicaments and biological substances; Z88.0 Allergy status to penicillin; Z79.890 Hormone replacement therapy; Z90.49 Acquired absence of other specified parts of digestive tract; Z98.49 Cataract extraction status, unspecified eye; Z98.84 Bariatric surgery status; Z79.899 Other long term (current) drug therapy; Z79.82 Long term (current) use of aspirin; Z86.711 Personal history of pulmonary embolism; Z79.01 Long term (current) use of anticoagulants; Z86.718 Personal history of other venous thrombosis and embolism
CPT/HCPCS: 36415; 71250; 74176; 80053; 81001; 83605; 83880; 85025; 87040 ×2; 87086; 93005 ×2; 96361; 96365; 96375; 99285; A9270 ×2; J0744; J1200; J2405; J2930; J7030; 80048; 97110-GP; 97161-GP; J0696; J3490; J7120

== ENCOUNTER 2024-03-01 11:41 | Emergency (ER) | payer MEDICARE, BC ==
[2024-03-01] MEDS ORDERED: Sodium Chloride 0.9% 2.5 ML Syringe FLUSH PRN (12:13)
[2024-03-01] MEDS ORDERED: Sodium Chloride 0.9% 10 ML Syringe FLUSH PRN (12:13)
[2024-03-01 12:17] LABS: BASOPHILS ABSOLUTE AUTO 0.05 K/uL (0.00-0.20); BASOPHILS PERCENT AUTO 0.9 % (0.0-1.0); EOSINOPHILS ABSOLUTE AUTO 0.05 K/uL (0.00-0.45); EOSINOPHILS PERCENT AUTO 0.9 % (0.0-6.0); HEMATOCRIT 34.9 % (37.0-47.0); HEMOGLOBIN 11.2 g/dL (12.0-16.0); IMMATURE GRAN ABSOLUTE AUTO 0.01 K/uL (0.00-0.05); IMMATURE GRAN PERCENT AUTO 0.2 % (0.0-0.4); LYMPHOCYTES ABSOLUTE AUTO 1.47 K/uL (1.00-4.80); LYMPHOCYTES PERCENT AUTO 25.9 % (24.0-44.0); MEAN CORPUSCULAR HEMOGLOBIN 30.9 pg (28.0-32.0); MEAN CORPUSCULAR HGB CONC 32.1 g/dL (32.0-36.0); MEAN CORPUSCULAR VOLUME 96.1 fL (83.0-99.0); MEAN PLATELET VOLUME 9.8 fL (9.4-12.3); MONOCYTES ABSOLUTE AUTO 0.57 K/uL (0.00-0.80); MONOCYTES PERCENT AUTO 10.1 % (0.0-8.0); NEUTROPHILS ABSOLUTE AUTO 3.52 K/uL (1.80-7.70); PLATELET COUNT,PLT 207 K/uL (150-400); RED BLOOD CELL COUNT 3.63 M/uL (4.10-5.30); WHITE BLOOD CELL COUNT,WBC 5.67 K/uL (3.9-11.3)
[2024-03-01 12:51] LABS: A/G RATIO 0.9 (0.9-1.6); ALBUMIN 2.9 g/dL (3.4-5.0); BILIRUBIN TOTAL 0.2 mg/dL (0.2-1.0); CALCIUM 8.4 mg/dL (8.5-10.1); CARBON DIOXIDE,CO2 26.7 mmol/L (21.0-32.0); CREATININE 0.7 mg/dL (0.6-1.0); EST CRCL DRUG DOSING (CG) 53.8 mL/min; POTASSIUM,K 2.9 mmol/L (3.5-5.1); PROTEIN TOTAL,TP 6.1 g/dL (6.4-8.2)
[2024-03-01] MEDS ORDERED: Morphine 2 MG/ML SYRINGE IVPUSH PRN (13:44)
[2024-03-01] MEDS: Iopamidol 755 MG/ML 500 ML Multipack Bottle IVPUSH STA (14:25)
[2024-03-01 14:52] LABS: APPEARANCE,URINE SLT CLOUDY; BILIRUBIN,URINE NEGATIVE (NEGATIVE); COLOR,URINE YELLOW; GLUCOSE,URINE NEGATIVE (NEGATIVE); KETONES,URINE NEGATIVE (NEGATIVE); LEUKOCYTE ESTERASE,URINE NEGATIVE (NEGATIVE); NITRITE,URINE POSITIVE (NEGATIVE); OCCULT BLOOD,URINE NEGATIVE (NEGATIVE); PROTEIN,URINE NEGATIVE (NEGATIVE); UROBILINOGEN,URINE 0.2 EU/dL (<2.0)
[2024-03-01 15:19] LABS: BACTERIA,URINE MODERATE (NEGATIVE); EPITHELIAL CELLS,URINE RARE (NONE-FEW); RBC,URINE 0-5 (0-2/HPF)
[2024-03-01] MEDS: Potassium Chloride 20 MEQ Tab.ER PO ONE (15:57)
[2024-03-01] MEDS: Cephalexin 500 MG Cap PO ONE (16:55)
[2024-03-01 18:10] VITALS: BP 107/53; PULSE 76
== END 2024-03-01 18:11 | disposition home or self-care (01) ==
LOC: MW.ED 11:41
DX: R10.11 Right upper quadrant pain (principal); I11.0 Hypertensive heart disease with heart failure; I50.9 Heart failure, unspecified; I48.91 Unspecified atrial fibrillation; E78.00 Pure hypercholesterolemia, unspecified; E03.9 Hypothyroidism, unspecified; Z90.49 Acquired absence of other specified parts of digestive tract; Z90.710 Acquired absence of both cervix and uterus; Z79.899 Other long term (current) drug therapy; Z79.82 Long term (current) use of aspirin; Z79.890 Hormone replacement therapy; Z79.01 Long term (current) use of anticoagulants; Z88.1 Allergy status to other antibiotic agents; Z88.0 Allergy status to penicillin; Z88.5 Allergy status to narcotic agent; Z88.8 Allergy status to other drugs, medicaments and biological substances; Z75.8 Other problems related to medical facilities and other health care
CPT/HCPCS: 36415; 74177; 80053; 81001; 83605; 83690; 85025; 87040; 87070; 87075; 87077; 87186; 87205; 99284; A9270; Q9967

== ENCOUNTER 2024-08-12 14:30 | Emergency (ER) | payer MEDICARE, BC ==
[2024-08-12 16:43] LABS: HEMATOCRIT 36.5 % (37.0-47.0); HEMOGLOBIN 11.9 g/dL (12.0-16.0); MEAN CORPUSCULAR HEMOGLOBIN 32.2 pg (28.0-32.0); MEAN CORPUSCULAR HGB CONC 32.6 g/dL (32.0-36.0); MEAN CORPUSCULAR VOLUME 98.6 fL (83.0-99.0); MEAN PLATELET VOLUME 9.1 fL (9.4-12.3); PLATELET COUNT,PLT 198 K/uL (150-400); WHITE BLOOD CELL COUNT,WBC 7.81 K/uL (3.9-11.3)
[2024-08-12 17:24] LABS: A/G RATIO 0.9 (0.9-1.6); ALBUMIN 3.1 g/dL (3.4-5.0); BILIRUBIN TOTAL 0.4 mg/dL (0.2-1.0); CALCIUM 8.9 mg/dL (8.5-10.1); CARBON DIOXIDE,CO2 29.7 mmol/L (21.0-32.0); CREATININE 0.7 mg/dL (0.6-1.0); EST CRCL DRUG DOSING (CG) 55.01 mL/min; POTASSIUM,K 3.3 mmol/L (3.5-5.1); PROTEIN TOTAL,TP 6.4 g/dL (6.4-8.2)
[2024-08-12 18:36] VITALS: PULSE 66
[2024-08-12] MEDS: Iopamidol 755 MG/ML 500 ML Multipack Bottle IVPUSH STA (19:12)
[2024-08-12 22:40] VITALS: BP 106/54
== END 2024-08-12 22:38 | disposition home or self-care (01) ==
LOC: MW.ED 14:30
DX: S27.818A Other injury of esophagus (thoracic part), initial encounter (principal); Z88.1 Allergy status to other antibiotic agents; Z88.6 Allergy status to analgesic agent; Z88.0 Allergy status to penicillin; Z88.5 Allergy status to narcotic agent; Z88.8 Allergy status to other drugs, medicaments and biological substances; Z79.890 Hormone replacement therapy; Z79.899 Other long term (current) drug therapy; Z79.01 Long term (current) use of anticoagulants
CPT/HCPCS: 36415; 71046; 71270; 80053; 85027; 99284; Q9967

== ENCOUNTER 2025-05-29 20:03 | Emergency (ER) | payer MEDICARE, BC ==
[2025-05-29 22:12] LABS: BASOPHILS ABSOLUTE AUTO 0.06 K/uL (0.00-0.20); BASOPHILS PERCENT AUTO 0.7 % (0.0-1.0); EOSINOPHILS ABSOLUTE AUTO 0.04 K/uL (0.00-0.45); EOSINOPHILS PERCENT AUTO 0.5 % (0.0-6.0); IMMATURE GRAN ABSOLUTE AUTO 0.01 K/uL (0.00-0.05); IMMATURE GRAN PERCENT AUTO 0.1 % (0.0-0.4); LYMPHOCYTES ABSOLUTE AUTO 1.72 K/uL (1.00-4.80); LYMPHOCYTES PERCENT AUTO 20.5 % (24.0-44.0); MEAN PLATELET VOLUME 9.9 fL (9.4-12.3); MONOCYTES ABSOLUTE AUTO 0.90 K/uL (0.00-0.80); MONOCYTES PERCENT AUTO 10.7 % (0.0-8.0); NEUTROPHILS ABSOLUTE AUTO 5.66 K/uL (1.80-7.70); NEUTROPHILS PERCENT AUTO 67.5 % (41.0-71.0); NRBC ABSOLUTE 0.00 K/uL (0.00-0.02); NRBC PERCENT 0.0 /100WBC (0.0-0.2); PLATELET COUNT,PLT 179 K/uL (150-400); RED BLOOD CELL COUNT 4.15 M/uL (4.10-5.30); WHITE BLOOD CELL COUNT,WBC 8.39 K/uL (3.9-11.3)
[2025-05-29 22:49] LABS: A/G RATIO 1.0 (0.9-1.6); ALANINE AMINOTRANSFERASE,ALT 18.0 IU/L (14-63); ASPARTATE AMNIOTRANSFERASE,AST 23.0 IU/L (15-37); BILIRUBIN TOTAL 0.3 mg/dL (0.2-1.0); BLOOD UREA NITROGEN,BUN 12.0 mg/dL (7.0-18.0); CARBON DIOXIDE,CO2 32.7 mmol/L (21.0-32.0); CHLORIDE,CL 105.0 mmol/L (98-107); CREATININE 0.7 mg/dL (0.6-1.0); EST CRCL DRUG DOSING (CG) 54.0 mL/min; GLUCOSE RANDOM 70.0 mg/dL (74-106); POTASSIUM,K 3.6 mmol/L (3.5-5.1); PROTEIN TOTAL,TP 7.1 g/dL (6.4-8.2); SODIUM,NA 144.0 mmol/L (136-145)
[2025-05-29 22:50] LABS: ESTIMATED GFR 84.0 mL/min (>60)
[2025-05-29] MEDS: Iopamidol 755 MG/ML 500 ML Multipack Bottle IVPUSH STA (23:19)
[2025-05-30 00:40] VITALS: BP 132/48; PULSE 66
== END 2025-05-30 00:39 | disposition home or self-care (01) ==
LOC: MW.ED 20:03
DX: K11.21 Acute sialoadenitis (principal); I11.0 Hypertensive heart disease with heart failure; I50.9 Heart failure, unspecified; E78.00 Pure hypercholesterolemia, unspecified; I48.91 Unspecified atrial fibrillation; E03.9 Hypothyroidism, unspecified; Z90.49 Acquired absence of other specified parts of digestive tract; Z90.710 Acquired absence of both cervix and uterus; Z79.890 Hormone replacement therapy; Z79.899 Other long term (current) drug therapy; Z79.82 Long term (current) use of aspirin; Z79.01 Long term (current) use of anticoagulants; Z88.0 Allergy status to penicillin; Z88.1 Allergy status to other antibiotic agents; Z88.6 Allergy status to analgesic agent; Z88.8 Allergy status to other drugs, medicaments and biological substances
CPT/HCPCS: 36415; 70487; 70487-26; 80053; 85025; 99283; A9270-GY; Q9967

== ENCOUNTER 2025-06-11 16:52 | Inpatient (IN) | payer MEDICARE, BC ==
[2025-06-11] MEDS: Sodium Chloride 0.9% 2.5 ML Syringe FLUSH PRN (20:42)
[2025-06-11] MEDS: Sodium Chloride 0.9% 10 ML Syringe FLUSH PRN (20:43)
[2025-06-11 21:04] LABS: BASOPHILS ABSOLUTE AUTO 0.04 K/uL (0.00-0.20); BASOPHILS PERCENT AUTO 0.2 % (0.0-1.0); EOSINOPHILS ABSOLUTE AUTO 0.00 K/uL (0.00-0.45); EOSINOPHILS PERCENT AUTO 0.0 % (0.0-6.0); IMMATURE GRAN ABSOLUTE AUTO 0.09 K/uL (0.00-0.05); IMMATURE GRAN PERCENT AUTO 0.5 % (0.0-0.4); LYMPHOCYTES ABSOLUTE AUTO 0.65 K/uL (1.00-4.80); LYMPHOCYTES PERCENT AUTO 3.8 % (24.0-44.0); MEAN PLATELET VOLUME 9.3 fL (9.4-12.3); MONOCYTES ABSOLUTE AUTO 1.03 K/uL (0.00-0.80); MONOCYTES PERCENT AUTO 6.0 % (0.0-8.0); NEUTROPHILS ABSOLUTE AUTO 15.49 K/uL (1.80-7.70); NEUTROPHILS PERCENT AUTO 89.5 % (41.0-71.0); NRBC ABSOLUTE 0.00 K/uL (0.00-0.02); NRBC PERCENT 0.0 /100WBC (0.0-0.2); PLATELET COUNT,PLT 204 K/uL (150-400); RED BLOOD CELL COUNT 4.32 M/uL (4.10-5.30); WHITE BLOOD CELL COUNT,WBC 17.30 K/uL (3.9-11.3)
[2025-06-11 21:54] LABS: CORONAVIRUS COVID-19 NAA NEGATIVE (NEGATIVE); INFLUENZA A NAA NEGATIVE (NEGATIVE); INFLUENZA B NAA NEGATIVE (NEGATIVE); RESPIRATORY SYNCYTIAL VIR NAA NEGATIVE (NEGATIVE)
[2025-06-11 22:01] LABS: APPEARANCE,URINE SLT CLOUDY; GLUCOSE,URINE NEGATIVE (NEGATIVE); OCCULT BLOOD,URINE SMALL (NEGATIVE)
[2025-06-11 22:02] LABS: A/G RATIO 1.1 (0.9-1.6); ALANINE AMINOTRANSFERASE,ALT 20.0 IU/L (14-63); ASPARTATE AMNIOTRANSFERASE,AST 25.0 IU/L (15-37); BILIRUBIN TOTAL 0.6 mg/dL (0.2-1.0); BLOOD UREA NITROGEN,BUN 10.0 mg/dL (7.0-18.0); CARBON DIOXIDE,CO2 28.8 mmol/L (21.0-32.0); CHLORIDE,CL 105.0 mmol/L (98-107); CREATININE 0.9 mg/dL (0.6-1.0); EST CRCL DRUG DOSING (CG) 37.12 mL/min; GLUCOSE RANDOM 104.0 mg/dL (74-106); POTASSIUM,K 3.8 mmol/L (3.5-5.1); PRO B-TYPE NATRIUR PEPT,BNPPRO 203.0 pg/mL (0-450); PROTEIN TOTAL,TP 7.1 g/dL (6.4-8.2); SODIUM,NA 145.0 mmol/L (136-145)
[2025-06-11 22:07] LABS: LACTIC ACID 2.5 mmol/L (0.4-2.0)
[2025-06-11 22:08] LABS: EPITHELIAL CELLS,URINE FEW (NONE-FEW)
[2025-06-11 22:09] LABS: ESTIMATED GFR 62.0 mL/min (>60)
[2025-06-11] MEDS: Iopamidol 755 MG/ML 500 ML Multipack Bottle IVPUSH ONE (22:35)
[2025-06-11] MEDS: cefTRIAXone 1 GM in Water For Injection, Sterile 10 ML IVPUSH ONE (22:51)
[2025-06-11] MEDS: metroNIDAZOLE/Normal Saline 500 MG in Premix Bag 1 BAG IV ONE (23:54)
[2025-06-11] MEDS: Ketorolac 30 MG/ML SDV IVPUSH ONE (23:54)
[2025-06-12] MEDS: metroNIDAZOLE/Normal Saline 100 ML ONE (02:09)
[2025-06-12 06:10] LABS: BASOPHILS ABSOLUTE AUTO 0.07 K/uL (0.00-0.20); BASOPHILS PERCENT AUTO 0.3 % (0.0-1.0); EOSINOPHILS ABSOLUTE AUTO 0.00 K/uL (0.00-0.45); EOSINOPHILS PERCENT AUTO 0.0 % (0.0-6.0); IMMATURE GRAN ABSOLUTE AUTO 0.21 K/uL (0.00-0.05); IMMATURE GRAN PERCENT AUTO 0.9 % (0.0-0.4); LYMPHOCYTES ABSOLUTE AUTO 2.05 K/uL (1.00-4.80); LYMPHOCYTES PERCENT AUTO 8.5 % (24.0-44.0); MEAN PLATELET VOLUME 9.3 fL (9.4-12.3); MONOCYTES ABSOLUTE AUTO 1.16 K/uL (0.00-0.80); MONOCYTES PERCENT AUTO 4.8 % (0.0-8.0); NEUTROPHILS ABSOLUTE AUTO 20.57 K/uL (1.80-7.70); NEUTROPHILS PERCENT AUTO 85.5 % (41.0-71.0); NRBC ABSOLUTE 0.00 K/uL (0.00-0.02); NRBC PERCENT 0.0 /100WBC (0.0-0.2); PLATELET COUNT,PLT 175 K/uL (150-400); RED BLOOD CELL COUNT 3.73 M/uL (4.10-5.30); WHITE BLOOD CELL COUNT,WBC 24.06 K/uL (3.9-11.3)
[2025-06-12 06:29] LABS: BLOOD UREA NITROGEN,BUN 11.0 mg/dL (7.0-18.0); CARBON DIOXIDE,CO2 28.3 mmol/L (21.0-32.0); CHLORIDE,CL 105.0 mmol/L (98-107); CREATININE 1.1 mg/dL (0.6-1.0); EST CRCL DRUG DOSING (CG) 30.37 mL/min; GLUCOSE RANDOM 94.0 mg/dL (74-106); POTASSIUM,K 3.5 mmol/L (3.5-5.1); SODIUM,NA 143.0 mmol/L (136-145)
[2025-06-12 06:43] LABS: LACTIC ACID 2.9 mmol/L (0.4-2.0)
[2025-06-12 06:49] LABS: ESTIMATED GFR 49.0 mL/min (>60)
[2025-06-12] MEDS: cefTRIAXone 1 GM in Water For Injection, Sterile 10 ML IVPUSH SCH (08:20)
[2025-06-12] MEDS: Magnesium Sulfate 2 GM/50 mL 2 GM in Premix Bag 1 BAG IV ONE (08:20)
[2025-06-12] MEDS: Potassium Chloride 20 MEQ Tab.ER PO SCH (08:20)
[2025-06-12] MEDS: Prochlorperazine 10 MG/2 ML SDV IVPUSH PRN (10:27)
[2025-06-12] MEDS: diphenhydrAMINE 50 MG/ML SDV ONE (12:15)
[2025-06-12] MEDS: diphenhydrAMINE 50 MG/ML SDV IVPUSH ONE (12:15)
[2025-06-12 12:53] LABS: BASOPHILS ABSOLUTE AUTO 0.08 K/uL (0.00-0.20); BASOPHILS PERCENT AUTO 0.3 % (0.0-1.0); EOSINOPHILS ABSOLUTE AUTO 0.02 K/uL (0.00-0.45); EOSINOPHILS PERCENT AUTO 0.1 % (0.0-6.0); IMMATURE GRAN ABSOLUTE AUTO 0.33 K/uL (0.00-0.05); IMMATURE GRAN PERCENT AUTO 1.3 % (0.0-0.4); LYMPHOCYTES ABSOLUTE AUTO 1.54 K/uL (1.00-4.80); LYMPHOCYTES PERCENT AUTO 6.2 % (24.0-44.0); MEAN PLATELET VOLUME 9.9 fL (9.4-12.3); MONOCYTES ABSOLUTE AUTO 1.37 K/uL (0.00-0.80); MONOCYTES PERCENT AUTO 5.5 % (0.0-8.0); NEUTROPHILS ABSOLUTE AUTO 21.53 K/uL (1.80-7.70); NEUTROPHILS PERCENT AUTO 86.6 % (41.0-71.0); NRBC ABSOLUTE 0.00 K/uL (0.00-0.02); NRBC PERCENT 0.0 /100WBC (0.0-0.2); PLATELET COUNT,PLT 177 K/uL (150-400); RED BLOOD CELL COUNT 3.66 M/uL (4.10-5.30); WHITE BLOOD CELL COUNT,WBC 24.87 K/uL (3.9-11.3)
[2025-06-12 12:57] LABS: LACTIC ACID 2.6 mmol/L (0.4-2.0)
[2025-06-12 13:17] LABS: A/G RATIO 0.9 (0.9-1.6); ALANINE AMINOTRANSFERASE,ALT 16.0 IU/L (14-63); ASPARTATE AMNIOTRANSFERASE,AST 32.0 IU/L (15-37); BILIRUBIN TOTAL 0.4 mg/dL (0.2-1.0); BLOOD UREA NITROGEN,BUN 12.0 mg/dL (7.0-18.0); CARBON DIOXIDE,CO2 26.0 mmol/L (21.0-32.0); CHLORIDE,CL 110.0 mmol/L (98-107); CREATININE 0.8 mg/dL (0.6-1.0); EST CRCL DRUG DOSING (CG) 41.76 mL/min; GLUCOSE RANDOM 90.0 mg/dL (74-106); PHOSPHORUS 3.8 mg/dL (2.6-4.7); POTASSIUM,K 3.7 mmol/L (3.5-5.1); PROTEIN TOTAL,TP 5.5 g/dL (6.4-8.2); SODIUM,NA 146.0 mmol/L (136-145)
[2025-06-12 13:18] LABS: ESTIMATED GFR 72.0 mL/min (>60)
[2025-06-12 13:30] LABS: INR 1.24 (0.86-1.11)
[2025-06-13 01:21] LABS: LACTIC ACID 1.0 mmol/L (0.4-2.0)
[2025-06-13] MEDS: Norepinephrine Bit/D5W Premix 4 MG/250 ML BAG IV SCH (04:34)
[2025-06-13 05:01] LABS: BORDETELLA PARAPERT IS1001 Not Detected (Not Detected)
[2025-06-13 05:40] LABS: BASOPHILS ABSOLUTE AUTO 0.04 K/uL (0.00-0.20); BASOPHILS PERCENT AUTO 0.2 % (0.0-1.0); EOSINOPHILS ABSOLUTE AUTO 0.03 K/uL (0.00-0.45); EOSINOPHILS PERCENT AUTO 0.2 % (0.0-6.0); IMMATURE GRAN ABSOLUTE AUTO 0.16 K/uL (0.00-0.05); IMMATURE GRAN PERCENT AUTO 0.9 % (0.0-0.4); LYMPHOCYTES ABSOLUTE AUTO 1.63 K/uL (1.00-4.80); LYMPHOCYTES PERCENT AUTO 9.0 % (24.0-44.0); MEAN PLATELET VOLUME 10.2 fL (9.4-12.3); MONOCYTES ABSOLUTE AUTO 0.64 K/uL (0.00-0.80); MONOCYTES PERCENT AUTO 3.5 % (0.0-8.0); NEUTROPHILS ABSOLUTE AUTO 15.67 K/uL (1.80-7.70); NEUTROPHILS PERCENT AUTO 86.2 % (41.0-71.0); NRBC ABSOLUTE 0.00 K/uL (0.00-0.02); NRBC PERCENT 0.0 /100WBC (0.0-0.2); PLATELET COUNT,PLT 168 K/uL (150-400); RED BLOOD CELL COUNT 3.78 M/uL (4.10-5.30); WHITE BLOOD CELL COUNT,WBC 18.17 K/uL (3.9-11.3)
[2025-06-13 06:02] LABS: A/G RATIO 0.8 (0.9-1.6); ALANINE AMINOTRANSFERASE,ALT 17.0 IU/L (14-63); ASPARTATE AMNIOTRANSFERASE,AST 31.0 IU/L (15-37); BILIRUBIN TOTAL 0.3 mg/dL (0.2-1.0); BLOOD UREA NITROGEN,BUN 9.0 mg/dL (7.0-18.0); CARBON DIOXIDE,CO2 28.4 mmol/L (21.0-32.0); CHLORIDE,CL 110.0 mmol/L (98-107); CREATININE 0.8 mg/dL (0.6-1.0); EST CRCL DRUG DOSING (CG) 41.76 mL/min; GLUCOSE RANDOM 86.0 mg/dL (74-106); POTASSIUM,K 3.7 mmol/L (3.5-5.1); PROTEIN TOTAL,TP 5.5 g/dL (6.4-8.2); SODIUM,NA 145.0 mmol/L (136-145)
[2025-06-13 06:08] LABS: ESTIMATED GFR 72.0 mL/min (>60)
[2025-06-13] MEDS: Potassium Chloride 20 MEQ Tab.ER PO ONE (08:37)
[2025-06-13] MEDS: Pantoprazole 40 MG in Sodium Chloride 0.9% 20 ML IVPUSH SCH (08:37)
[2025-06-13] MEDS: cefTRIAXone 2 GM in Water For Injection, Sterile 20 ML IVPUSH SCH (10:47)
[2025-06-14 05:49] LABS: BASOPHILS ABSOLUTE AUTO 0.03 K/uL (0.00-0.20); BASOPHILS PERCENT AUTO 0.3 % (0.0-1.0); EOSINOPHILS ABSOLUTE AUTO 0.08 K/uL (0.00-0.45); EOSINOPHILS PERCENT AUTO 0.8 % (0.0-6.0); IMMATURE GRAN ABSOLUTE AUTO 0.03 K/uL (0.00-0.05); IMMATURE GRAN PERCENT AUTO 0.3 % (0.0-0.4); LYMPHOCYTES ABSOLUTE AUTO 1.04 K/uL (1.00-4.80); LYMPHOCYTES PERCENT AUTO 10.1 % (24.0-44.0); MEAN PLATELET VOLUME 10.1 fL (9.4-12.3); MONOCYTES ABSOLUTE AUTO 0.74 K/uL (0.00-0.80); MONOCYTES PERCENT AUTO 7.2 % (0.0-8.0); NEUTROPHILS ABSOLUTE AUTO 8.36 K/uL (1.80-7.70); NEUTROPHILS PERCENT AUTO 81.3 % (41.0-71.0); NRBC ABSOLUTE 0.00 K/uL (0.00-0.02); NRBC PERCENT 0.0 /100WBC (0.0-0.2); PLATELET COUNT,PLT 163 K/uL (150-400); RED BLOOD CELL COUNT 3.25 M/uL (4.10-5.30); WHITE BLOOD CELL COUNT,WBC 10.28 K/uL (3.9-11.3)
[2025-06-14 06:22] LABS: A/G RATIO 0.8 (0.9-1.6); ALANINE AMINOTRANSFERASE,ALT 19.0 IU/L (14-63); ASPARTATE AMNIOTRANSFERASE,AST 30.0 IU/L (15-37); BILIRUBIN TOTAL 0.3 mg/dL (0.2-1.0); BLOOD UREA NITROGEN,BUN 8.0 mg/dL (7.0-18.0); CARBON DIOXIDE,CO2 27.6 mmol/L (21.0-32.0); CHLORIDE,CL 112.0 mmol/L (98-107); CREATININE 0.6 mg/dL (0.6-1.0); EST CRCL DRUG DOSING (CG) 55.68 mL/min; GLUCOSE RANDOM 94.0 mg/dL (74-106); POTASSIUM,K 4.2 mmol/L (3.5-5.1); PROTEIN TOTAL,TP 5.3 g/dL (6.4-8.2); SODIUM,NA 145.0 mmol/L (136-145)
[2025-06-14 06:33] LABS: ESTIMATED GFR 87.0 mL/min (>60)
[2025-06-15 05:53] LABS: BASOPHILS ABSOLUTE AUTO 0.03 K/uL (0.00-0.20); BASOPHILS PERCENT AUTO 0.5 % (0.0-1.0); EOSINOPHILS ABSOLUTE AUTO 0.10 K/uL (0.00-0.45); EOSINOPHILS PERCENT AUTO 1.7 % (0.0-6.0); IMMATURE GRAN ABSOLUTE AUTO 0.02 K/uL (0.00-0.05); IMMATURE GRAN PERCENT AUTO 0.3 % (0.0-0.4); LYMPHOCYTES ABSOLUTE AUTO 0.96 K/uL (1.00-4.80); LYMPHOCYTES PERCENT AUTO 16.1 % (24.0-44.0); MEAN PLATELET VOLUME 10.2 fL (9.4-12.3); MONOCYTES ABSOLUTE AUTO 0.57 K/uL (0.00-0.80); MONOCYTES PERCENT AUTO 9.6 % (0.0-8.0); NEUTROPHILS ABSOLUTE AUTO 4.28 K/uL (1.80-7.70); NEUTROPHILS PERCENT AUTO 71.8 % (41.0-71.0); NRBC ABSOLUTE 0.00 K/uL (0.00-0.02); NRBC PERCENT 0.0 /100WBC (0.0-0.2); PLATELET COUNT,PLT 162 K/uL (150-400); RED BLOOD CELL COUNT 3.17 M/uL (4.10-5.30); WHITE BLOOD CELL COUNT,WBC 5.96 K/uL (3.9-11.3)
[2025-06-15 06:21] LABS: A/G RATIO 0.8 (0.9-1.6); ALANINE AMINOTRANSFERASE,ALT 27.0 IU/L (14-63); ASPARTATE AMNIOTRANSFERASE,AST 37.0 IU/L (15-37); BILIRUBIN TOTAL 0.3 mg/dL (0.2-1.0); BLOOD UREA NITROGEN,BUN 5.0 mg/dL (7.0-18.0); CARBON DIOXIDE,CO2 27.2 mmol/L (21.0-32.0); CHLORIDE,CL 112.0 mmol/L (98-107); CREATININE 0.5 mg/dL (0.6-1.0); EST CRCL DRUG DOSING (CG) 66.81 mL/min; ESTIMATED GFR 91.0 mL/min (>60); GLUCOSE RANDOM 89.0 mg/dL (74-106); POTASSIUM,K 3.7 mmol/L (3.5-5.1); PROTEIN TOTAL,TP 5.2 g/dL (6.4-8.2); SODIUM,NA 146.0 mmol/L (136-145)
[2025-06-16 05:39] LABS: BASOPHILS ABSOLUTE AUTO 0.05 K/uL (0.00-0.20); BASOPHILS PERCENT AUTO 0.9 % (0.0-1.0); EOSINOPHILS ABSOLUTE AUTO 0.11 K/uL (0.00-0.45); EOSINOPHILS PERCENT AUTO 2.0 % (0.0-6.0); IMMATURE GRAN ABSOLUTE AUTO 0.05 K/uL (0.00-0.05); IMMATURE GRAN PERCENT AUTO 0.9 % (0.0-0.4); LYMPHOCYTES ABSOLUTE AUTO 1.07 K/uL (1.00-4.80); LYMPHOCYTES PERCENT AUTO 19.6 % (24.0-44.0); MEAN PLATELET VOLUME 10.3 fL (9.4-12.3); MONOCYTES ABSOLUTE AUTO 0.72 K/uL (0.00-0.80); MONOCYTES PERCENT AUTO 13.2 % (0.0-8.0); NEUTROPHILS ABSOLUTE AUTO 3.47 K/uL (1.80-7.70); NEUTROPHILS PERCENT AUTO 63.4 % (41.0-71.0); NRBC ABSOLUTE 0.00 K/uL (0.00-0.02); NRBC PERCENT 0.0 /100WBC (0.0-0.2); PLATELET COUNT,PLT 164 K/uL (150-400); RED BLOOD CELL COUNT 3.42 M/uL (4.10-5.30); WHITE BLOOD CELL COUNT,WBC 5.47 K/uL (3.9-11.3)
[2025-06-16 06:28] LABS: A/G RATIO 0.8 (0.9-1.6); ALANINE AMINOTRANSFERASE,ALT 28.0 IU/L (14-63); ASPARTATE AMNIOTRANSFERASE,AST 35.0 IU/L (15-37); BILIRUBIN TOTAL 0.3 mg/dL (0.2-1.0); BLOOD UREA NITROGEN,BUN 6.0 mg/dL (7.0-18.0); CARBON DIOXIDE,CO2 25.9 mmol/L (21.0-32.0); CHLORIDE,CL 109.0 mmol/L (98-107); CREATININE 0.5 mg/dL (0.6-1.0); EST CRCL DRUG DOSING (CG) 66.81 mL/min; ESTIMATED GFR 91.0 mL/min (>60); GLUCOSE RANDOM 77.0 mg/dL (74-106); POTASSIUM,K 3.9 mmol/L (3.5-5.1); PROTEIN TOTAL,TP 5.5 g/dL (6.4-8.2); SODIUM,NA 143.0 mmol/L (136-145)
[2025-06-16 11:53] VITALS: BP 148/69; PULSE 79
== END 2025-06-16 14:30 | disposition home health service (06) | DRG 871 ==
LOC: MW.ED 16:52 → MW.MS 23:43 → MW.ICU 06-12 12:47 → MW.MS 06-14 17:36
PROVIDERS: ADMIT Family Medicine; ATTEND Family Medicine
PROC: 3E03329 Introduction of Other Anti-infective into Peripheral Vein, Percutaneous Approach (ICD-10-PCS; principal; 2025-06-11)
PROC: 3E033XZ Introduction of Vasopressor into Peripheral Vein, Percutaneous Approach (ICD-10-PCS; 2025-06-11)
PROC: 5A0935A Assistance with Respiratory Ventilation, Less than 24 Consecutive Hours, High Flow/Velocity Cannula (ICD-10-PCS; 2025-06-11)
DX: A40.3 Sepsis due to Streptococcus pneumoniae (principal); J18.9 Pneumonia, unspecified organism; J69.0 Pneumonitis due to inhalation of food and vomit; J96.01 Acute respiratory failure with hypoxia; R65.21 Severe sepsis with septic shock; N39.0 Urinary tract infection, site not specified; I50.32 Chronic diastolic (congestive) heart failure; Z66 Do not resuscitate; E78.00 Pure hypercholesterolemia, unspecified; I48.0 Paroxysmal atrial fibrillation; M19.90 Unspecified osteoarthritis, unspecified site; I11.0 Hypertensive heart disease with heart failure; I50.9 Heart failure, unspecified; E86.0 Dehydration; D64.9 Anemia, unspecified; G20.A1 Parkinson's disease without dyskinesia, without mention of fluctuations; Z96.649 Presence of unspecified artificial hip joint; B96.20 Unspecified Escherichia coli [E. coli] as the cause of diseases classified elsewhere; Z96.659 Presence of unspecified artificial knee joint; E03.9 Hypothyroidism, unspecified; Z88.0 Allergy status to penicillin; Z88.8 Allergy status to other drugs, medicaments and biological substances; Z79.01 Long term (current) use of anticoagulants; Z88.1 Allergy status to other antibiotic agents; Z79.890 Hormone replacement therapy; Z86.718 Personal history of other venous thrombosis and embolism; Z79.82 Long term (current) use of aspirin; Z98.49 Cataract extraction status, unspecified eye; Z87.891 Personal history of nicotine dependence; Z98.890 Other specified postprocedural states; Z79.899 Other long term (current) drug therapy; Z90.49 Acquired absence of other specified parts of digestive tract; Z75.3 Unavailability and inaccessibility of health-care facilities; Z90.710 Acquired absence of both cervix and uterus; Z86.711 Personal history of pulmonary embolism
CPT/HCPCS: 36415; 71046; 71260; 74177; 80053; 81001; 83605; 83690; 83735; 83880; 85025; 87040 ×2; 87077; 87086; 87088; 87186 ×2; 87428; 87637; 87899 ×2; 96361; 96374; 99285; A9270; J0696; J7030; Q9967; 70450; 70450-26; 80048; 80202; 82947; 84100; 85610; 87486; 87581; 87633; 87641; 92610-GN; 93010; 94640; 94667; 97110-GP; 97161-GP; 97162-GP; 97165-GO; 99223; 99232; 99233; 99239; A4216; J0456; J0692; J0780; J1200; J1836; J1885; J2183; J2470; J3374; J3475; J7040; J7050